=== PATIENT | female | born 1940 | race Caucasian/White ===

== ENCOUNTER 2025-04-22 | Outpatient (REF) | payer MEDICARE, SELFPAY ==
[2025-04-22 06:05] LABS: MANUAL DIFF FLAG NO
[2025-04-22 06:08] LABS: Hematocrit 28.3 % (37.0-47.0); Hemoglobin 8.9 g/dl (12.0-16.0); Imm Gran Abs Auto 0.03 X10*3/uL (0.00-0.03); Imm Gran Pct Auto 0.4 % (0.0-0.4); Lymphocytes Absolute Auto 1.2 X10*3/uL (1.2-4.9); Mean Corpuscular HGB Conc 31.4 g/dl (31.0-35.0); Mean Corpuscular Hemoglobin 30.5 pg (27.0-33.0); Mean Corpuscular Volume 96.9 fL (80.0-98.0); NRBC Abs Auto 0.000 X10*3/uL (0.0-0.012); NRBC Pct Auto 0.0 /100WBC (0.0-0.2); Platelet Count 389 X10*3/uL (160-400); Red Blood Count 2.92 X10*6/uL (4.20-5.50); White Blood Count 7.0 X10*3/uL (4.8-10.8)
[2025-04-22 06:26] LABS: Alanine Aminotransferase 19 U/L (0-31); Albumin Level 3.3 g/dL (3.5-5.0); Alkaline Phosphatase 80 U/L (39-117); Anion Gap 13 (12-20); Aspartate Amino Transferase 32 U/L (5-31); Blood Urea Nitrogen 24 mg/dL (9-16); Calcium 8.4 mg/dL (8.4-10.2); Carbon Dioxide 27 mmol/L (22-29); Chloride 107 mmol/L (96-108); Estimated Glomerular Filt Rate > 60; Potassium 4.2 mmol/L (3.3-5.1); Sodium 143 mmol/L (135-145); Total Protein 5.6 g/dL (6.5-8.0)
--- OUTSIDE RECORDS SUMMARY | 2025-05-01 14:31 | XMS_ITS | Encounter Summary ---
Author Organization [facility] Address [address] [place] [address] Care Team Providers Care Home Health Specialist Name Role Phone Lilliam Levy MD Primary Care Provider Reason for Visit * Reason Comments Leg Injury Right hip/distal fem ur * Auth/Cert (Routine) Specialty Diagnoses / Procedures Referred By Brenda jack Referred To Contact Diagnoses Periprosthetic fracture around prosthetic joint, initial encounter Procedures / Miguelangel Winn MD [address] [place] [phone] Phone: tel: fax: [facility] [address] [place] [address] Phone: tel: Referral ID Status Reason Start Date Expiration Date Visits Re quested Visits Authorized [id number] 1 1 Encounter Details Date Type Department Care Team (Late st Contact Info) Description 05/01/2025 2:31 PM EST - Present Hospital Encounter [facility] Unit [address] [place] [phone] Nik Vogt MD [address] [place] [address] Miguelangel Winn MD [address] [place] [phone] Kitty Castellanos MD [address] [place] [address] Mecca Barrios MD [address] [place] [address] Amanda Woods MD [address] [place] [address] Kobi Franklin MD [address] [place] [address] Other closed fracture of distal end of right femur, initial encounter ([facility] V24, [facility] V28) (Primary Dx); Hematoma Social History Tobacco Use Types Packs/Day Years Used Date Smoking Tobacco: Former Cigarettes 0.5 Q uit: 11/23/2020 Smokeless Tobacco: Never Alcohol Use Standard Drinks/Week Comments Yes 1 (1 standard drink = 0.6 oz pur e alcohol) once a week Housing Instability Answer Date Recorde d Are you worried that in the next 2 months you may not have stable housing? No 05/01/2025 Food Access & Nutrition Answer Date Rec orded Do you have access to a vari ety of food including fruits and vegetables? Yes 05/01/2025 Access to Healthcare Answer Date Record ed Within the last 3 months, lv raman many times did you visit the emergency department for your medical care? 1 04/09/2025 Health Literacy Answer Date Recorded How often do you need to hav e someone help you when you read instructions, pamphlets, or other written material from your doctor or pharmacy? Never 05/01/2025 Caregiver: How often do you need to have someone help you when you read instructions, pamphlets, or other written material from your doctor or pharmacy? Not on file 05/01/2025 Financial Risk Answer Date Recorded How hard is it for you to pa y for the very basics like food, housing, medical care, and air conditioning / heating? Not very hard 05/01/2025 Transportation Answer Date Recorded Has the lack of transportati on kept you from meetings, work, or from getting things needed for daily living? No Has the lack of transportati on kept you from medical appointments or from getting medications? No 05/01/2025 Social Isolation Answer Date Recorded How often do you feel lonely or isolated from th ose around you? Never 05/01/2025 Food Risk Answer Date Recorded Within the past 12 months we worried whether our food would run out before we got money to buy more. Never true 05/01/2025 Within the past 12 months th e food we bought just didn't last and we didn't have money to get more. Never true 05/01/2025 Dependent Care Answer Date Recorded Do you need help finding or paying for care for your loved ones. For example, child care associate teacher or elderly care for an older adult? No 05/01/2025 Education Answer Date Recorded Do you think completing more education or training, like finishing a GED, going to college, or learning a trade, would be helpful for you? No 05/01/2025 Employment and Income Answer Date Recor ded During the last four weeks, have you been actively looking for work? No 05/01/2025 Living Situation Answer Date Recorded What is your living situation? Unrecognized valu e 05/01/2025 Interpersonal Safety Answer Date Record ed Physical Abuse Unrecognized value 05/01/2025 Verbal Abuse Unrecognized value 05/01/2025 Comments No Sex and Gender Information Value Date Recorded Sex Assigned at Female 06/27/2024 10:57 AM EST Legal Sex Female 12:23 PM EST Gender Identity Female 06/27/2024 10:57 AM EST Sexual Orientation Straight 06/27/2024 10 :57 AM EST documented as of this encounter Last Filed Vital Signs Vital Sign Reading Time Taken Comments Blood Pressure 127/79 05/19/2025 7:41 AM EST Pulse 70 05/19/2025 7:41 AM EST Temperature 36.7 C (98.1 F) 05/19/2025 7:41 AM EST Respiratory Rate 14 05/19/2025 7:41 AM EST Oxygen Saturation 97% 05/19/2025 7:41 AM EST Inhaled Oxygen Concentration - - Weight 47.6 kg (105 lb) 05/04/2025 5:29 PM EST Height 165.1 cm (5' 5 ) 05/01/2025 2:38 PM EST Body Mass Index 17.47 05/01/2025 2:38 PM EST documented in this encounter Functional Status * Calculated C-SSRS Risk Score (Lifetime/Recent) Answer Date of Assessment Author No Risk Indicated 05/01/2025 2:38 PM EST Lyndsay Figueroa RN * [place] Suicide Severity Rating Scale (Screener/Recent Self-Report) Question Answer Date of Assessment Author 1. Wish to be (Past 1 Month) No 025 2:38 PM EST Lyndsay Figueroa RN 2. Non-Specific Active Suici victoria Thoughts (Past 1 Month) No 05/01/2025 2:38 PM EST April Figueroa RN 6. Suicidal Behavior (Lifetime) No 2:38 PM EST Lyndsay Figueroa RN documented as of this encounter Progress Notes * BURAK Miller - 05/19/2025 10:50 AM EST Orthopedic trauma surgery progress note for right hip infection. Subjective Surgery: Right distal femur nonexcisional irrigation and debridement of a 10 cm x 3 cm wound with VAC spongeapplication deep by Dr. Mojica on 05/13/25, 05/15/[address] Matos on 05/18/25. ORIF periprosthetic R distal femur by Dr. Baeza on 05/05/25. I&D right proximal draining wound by Dr. Mojica on 04/10/25, 04/13/25, 04/15/25 ORIF right proximal femoral fracture w/ cemented R LESLIE by Dr. Baeza on, 04/03/25. Isabella is being seen today in postoperative follow-up. Patient denies pain in right leg. Reports ambulating to the bathroom and with PT. Denies fevers, chills, headedness, dizziness, chest pain, shortness of breath, nausea, vomiting, abdominal pain, numbness, tingling. No overnight events noted. Voiding independently. Tolerating p.o. diet. No other complaints at this time. Review of Systems: ROS: 10 point ROS was reviewed with patient, pertinent positive and negative results are noted in the HPI. Objective Vitals: 05/19/25 0741 BP: 127/79 Pulse: 70 Resp: 14 Temp: 36.7 ??C (98.1 ??F) SpO2: 97% Physical Exam: GENERAL: Well-appearing, calm, cooperative, nontoxic appearing, thin, elderly female. In no acute distress. SKIN: Warm, dry. No rashes. HEENT: Normocephalic, atraumatic. CARDIAC: No peripheral edema. PULMONARY: No use of accessory muscles. : Deferred. MUSCULOSKELETAL: Right lower extremity: surgical dressing is clean, dry and intact. Hinged knee brace in place. Sensation intact to light touch over tibial, deep peroneal and superficial peroneal nerve distributions. Fires EHL, FHL, GS, TA. Toes warm well-perfused. NEURO: Awake, alert and oriented X 3. PSYCHIATRIC: Normal affect, fluid speech, good eye contact and appropriate demeanor. Scheduled Medications PRN Medications IV Medications atorvastatin, 20 mg, Nightly cholecalciferol, 50,000 Units, Weekly cholestyramine, 4 g, BID with meals dorzolamide, 1 drop, BID enoxaparin, 40 mg, Daily latanoprost, 1 drop, Nightly meropenem, 1 g, q8h metoprolol succinate, 25 mg, Daily PARoxetine, 20 mg, q AM polyetheylene glycol, 17 g, Nightly sodium chloride, 10 mL, BID acetaminophen, 650 mg, q6h PRN HYDROmorphone, 0.5 mg, q3h PRN naloxone, 0.04 mg, PRN ondansetron, 4 mg, q6h PRN oxyCODONE, 2.5 mg, q4h PRN oxyCODONE, 5 mg, q4h PRN sodium chloride, 10 mL, PRN sodium chloride, 42 mL/hr, PRN sodium chloride, 42 mL/hr, PRN sodium chloride, 42 mL/hr, PRN Labs: Hematology Lab Results Component Value Date WBC 8.3 05/18/2025 HGB 9.3 (L) 05/18/2025 HCT 30.0 (L) 05/18/2025 MCV 94.6 05/18/2025 PLT 441 (H) 05/18/2025 Chemistry Lab Results Component Value Date GLUCOSE 82 05/18/2025 NA 142 05/18/2025 K 4.5 05/18/2025 CO2 33 (H) 05/18/2025 CL 103 05/18/2025 BUN 34 (H) 05/18/2025 CREATININE 0.78 05/18/2025 EGFR 76 05/18/2025 CALCIUM 8.1 (L) 05/18/2025 MG 1.8 (L) 05/18/2025 PHOS 3.3 05/16/2025 ANIONGAP 6 05/18/2025 Assessment Periprosthetic fracture around prosthetic joint, initial encounter Plan Antibiotics: Continue IV abx as per ID, currently on IV meropenem OR C/S from 05/13 growing Enterobacter plus Citrobacter. Analgesia: Continue scheduled acetaminophen and prn po narcotics. Minimize narcotics. Activity: Continue PT/OT. WBAT on RLE. Hinged knee brace unlocked to allow for knee ROM. Dressing should be kept clean dry and intact. Reinforce prn. Wound vac in place maintaining adequate suction, output 100 ml. Anticoagulation: Lovenox or heparin while inpatient. Transition to Aspirin 81 mg po bid at discharge to complete 6 weeks postop. Additional: Anticipate return to the OR on Sunday for right distal femur wound VAC change by Dr. Mojica. Discussed and reviewed with Dr. Matos, orthopedic surgery attending. BURAK Miller Orthopedic Surgery 05/19/2025 10:51 AM EST * Herlinda Villagran, PT - 05/19/2025 10:40 AM EST [facility] Physical Therapy Treatment PT Discharge Recommendations: assisted facility placement Staff Recommendations for safe patient handling: min assist, locked hinge knee brace, rwalker Precautions Medical Precautions: Fall Risk, Limb restriction Safety Interventions: Call cabrera within reach, Bed alarm, Chair alarm, Side rails up x1 RUE Weight Bearing Status: Full LUE Weight Bearing Status: Full RLE Weight Bearing Status: As Tolerated LLE Weight Bearing Status: Full Orthopedic Precautions: (wbat with locked hinge knee brace on, limit excessive knee rom) Orthoses Applied: (hinged knee brace applied) Prosthesis/Orthosis Used: KAFO, Right History of Present Illness: Patient is a 84 y.o. female admitted to [facility] on 05/01/2025 with: Problem List[1] Modified Sanjana Scale: 4=Moderately severe disability. Unable to attend to own bodily needs without assistance or unable to walk unassisted. Fall prevention education provided including use of call light in hospital, use of appropriate assistive device, safe mobility techniques, and safety measures at home. Continue PT as per POC. Subjective I have another procedure Sunday Objective 05/19/25 1040 PT Last Visit PT Received On 05/19/25 General Family/Caregiver Present No PT Time Calculation PT Start Time 1040 PT Stop Time 1120 PT Time Calculation (min) 40 min Precautions Medical Precautions Fall Risk;Limb restriction Safety Interventions Call cabrera within reach;Bed alarm;Chair alarm;Side rails up x1 RUE Weight Bearing Status Full LUE Weight Bearing Status Full RLE Weight Bearing Status As Tolerated LLE Weight Bearing Status Full Orthopedic Precautions (wbat with locked hinge knee brace on, limit excessive knee rom) Pain Assessment Pain Assessment No/denies pain Cognition Overall Cognitive Status WFL Following Commands Follows all commands and directions without difficulty Activity Tolerance Endurance Tolerates 20 - 30 min activity with multiple rests Static Sitting Balance Static Sitting-Level of Assistance Supervision Static Sitting-Balance Support Right upper extremity supported;Left upper extremity supported Dynamic Sitting Balance Dynamic Sitting-Level of Assistance Supervision Dynamic Sitting-Balance Forward lean Dynamic Sitting-Balance Support Right upper extremity supported;Left upper extremity supported Static Standing Balance Static Standing-Level of Assistance Standby assistance Static Standing-Balance Support Right upper extremity supported;Left upper extremity supported Dynamic Standing Balance Dynamic Standing-Level of Assistance Standby assistance Dynamic Standing-Balance Ambulation Dynamic Standing-Balance Support Right upper extremity supported;Left upper extremity supported Bed Mobility Sitting to Lying Assistance Minimum assistance Lying to Sitting Assistance Standby assistance Transfers Sit to Stand Assistance Standby assistance Toilet Transfer Assistance Minimum assistance Toilet Transfer Technique Stand pivot;Stand to sit;Ambulating Ambulation Walking Assistance Standby assistance Device Rolling walker Pattern (locked hinge knee brace on r, therefore circumducts during swing; decreased stance time on r, slowcadence) Distance Ambulated (ft) 45 Procedures Procedures Therapeutic Activity Therapeutic Activity Therapeutic Activity Time Entry 40 Therapeutic Activity 1 in bed at outset of session, locked hinge knee brace on r, wound vac in place; moved supine to sitting over EOB with increased time, HOB up, and supervision. moved sit to standfrom EOB with no vc's needed for hand placement, but increased time and effort needed ; once standing walked in room to bathroom (10 ft), min assist to maneuver in tight space and to lower to sittingonto toilet. onces standing, ambulated out of room and into hallway using rwalker; vcs for upright trunk, steady gait with compensatory r hip circumduction d/t locked mick knee brace on r. Therapeutic Activity 2 She ambulated back to EOB, and lowered with sba. min assist needed to lift ble's and reposition upper body. Therapeutic Activity 3 sitting to supine performed with min assist to lift bles and place on bed, and to reposition upper body. Therapeutic Activity 4 reviewed ap's, hip abd/add while supine with brace on PT Assessment PT Assessment Results Decreased strength;Decreased range of motion;Decreased endurance;Impaired balance;Impaired gait;Decreased mobility;Decreased skin integrity;Orthopedic restrictions;Pain Prognosis Good Evaluation/Treatment Tolerance Patient limited by fatigue Medical Staff Made Aware Yes Plan Treatment/Interventions Functional transfer training;UE strengthening/ROM;LE strengthening/ROM;Endurance training;Patient/family training;Equipment eval/education;Bed mobility;Gait training;Compensatory technique education;Continued evaluation;Balance training;Stair training PT Plan Skilled PT PT Frequency 2-5 days per week PT Discharge Recommendations assisted facility placement Equipment Recommended Walker - rolling PT - Evaluation Status Complete PT - OK to Discharge (pt awaitng another procedure on 05/22/25) Procedure/Treatment: Procedures Procedures: Therapeutic Activity Gait Training Gait Training Time Entry: 24 Gait Training Activity 1: pt in bed at outset, moved supine-sitting unassisted, and sit to stand atrwalker [facility], vcs for hand placement; She ambulated to bathroom (10 ft) , wbat on r with brace on , sba, and performed toilet transfer with min assist to mange rwalker lower with control and lift off Gait Training Activity 2: She ambulated out of room and into hallway, vcs for more symmetrical steplength, upright trunk, sba x 60 ft. She sat down on sofa, mod assist for graded control sitting andfor liftoff. she stepped up/down 1 step with 2 hands on l rail, mod assist given for trunk support weight shfit, and lift up onto step . She stepped down backwards, and continued to walk down luna, with noted muscle fatigue, and decreased contralateral step length. pt got back into bed, min assist to lift RLE onto bed. Gait Training Activity 3: pt performed SPT to bed side chair, vcs to back up with rwalker, off loadrle, reach back and sit , with min assist for graded control of descent. Gait Training Activity 4: pt performed arom laq's, leg extended ap's x 10 reps to restore rom,strength and improve stength length, stabilty in gait Gait Training Activity 5: rle positioned extended on stool, sitting , reporting relief of pressure like pain in thigh during short sitting Therapeutic Exercise Therapeutic Exercise Time Entry: 15 Therapeutic Exercise Activity 1: supine: aps, hip abd/add, isometric qs, gs x 10 reps each Therapeutic Activity Therapeutic Activity Time Entry: 40 Therapeutic Activity 1: in bed at outset of session, locked hinge knee brace on r, wound vac in place; moved supine to sitting over EOB with increased time, HOB up, and supervision. moved sit to stand from EOB with no vc's needed for hand placement, but increased time and effort needed ; once standing walked in room to bathroom (10 ft), min assist to maneuver in tight space and to lower to sitting onto toilet. onces standing, ambulated out of room and into hallway using rwalker; vcs for uprighttrunk, steady gait with compensatory r hip circumduction d/t locked mick knee brace on r. Therapeutic Activity 2: She ambulated back to EOB, and lowered with sba. min assist needed to lift ble's and reposition upper body. Therapeutic Activity 3: sitting to supine performed with min assist to lift bles and place on bed, and to reposition upper body. Therapeutic Activity 4: reviewed ap's, hip abd/add while supine with brace on Patient left lying supine in bed. RN notified of pt. status, location, response to treatment, and therapy recommendations. Physical Therapy Assessment/Plan PT Assessment PT Assessment Results: Decreased strength, Decreased range of motion, Decreased endurance, Impairedbalance, Impaired gait, Decreased mobility, Decreased skin integrity, Orthopedic restrictions, Pain Prognosis: Good Evaluation/Treatment Tolerance: Patient limited by fatigue Medical Staff Made Aware: Yes Plan Treatment/Interventions: Functional transfer training, UE strengthening/ROM, LE strengthening/ROM, Endurance training, Patient/family training, Equipment eval/education, Bed mobility, Gait training, Compensatory technique education, Continued evaluation, Balance training, Stair training PT Plan: Skilled PT PT Frequency: 2-5 days per week PT Duration of Sessions: 15-30 min per session PT Treatments per day: 1 time per day PT Discharge Recommendations: assisted facility placement Equipment Recommended: Walker - rolling PT - Evaluation Status: Complete PT - OK to Discharge: (pt awaitng another procedure on 05/22/25) Physical Therapy Goals/Education Encounter Problems Encounter Problems (Active) Template: Physical Therapy Problem: PT Short Term Goals Dates: Start: 05/06/25 Goal: Patient will ambulate with rwalker, hingeknee brace, wbat, stand by assist (Resolved) Dates: Start: 05/06/25 Expected End: 05/12/25 Resolved: 05/07/25 Outcomes Date/Time User Outcome 05/07/25 1652 Kamilla Bermudez, PT Completed Goal: Patient will ambulate with rwalker, hinge knee brace, wbat, x 50 ft, stand by assist Dates: Start: 05/06/25 Expected End: 05/13/25 Outcomes Date/Time User Outcome 05/15/25 1728 Herlinda Villagran, PT Progressing Goal: Patient will be able to safely negotiate 5 stairs with 1 rail, min assist Dates: Start: 05/06/25 Expected End: 05/13/25 Outcomes Date/Time User Outcome 05/15/25 1728 Herlinda Villagran, PT Not Progressing Encounter Problems (Resolved) There are no resolved problems. Education Documentation Precautions, taught by Herlinda Villagran PT at 05/19/2025 11:38 AM. Learner: Patient Readiness: Acceptance Method: Explanation Response: Verbalizes Understanding Comment: educated in POC and dc recommendations ADL Training, taught by Herlinda Villagran PT at 05/19/2025 11:38 AM. Learner: Patient Readiness: Acceptance Method: Explanation Response: Verbalizes Understanding Comment: educated in POC and dc recommendations Home Exercise Program, taught by Herlinda Villagran PT at 05/19/2025 11:38 AM. Learner: Patient Readiness: Acceptance Method: Explanation Response: Verbalizes Understanding Comment: educated in POC and dc recommendations Mobility Training, taught by Herlinda Villagran PT at 05/19/2025 11:38 AM. Learner: Patient Readiness: Acceptance Method: Explanation Response: Verbalizes Understanding Comment: educated in POC and dc recommendations Education Comments No comments found. Herlinda Villagran PT ++++++++++++ [1] Patient Active Problem List Diagnosis Atrial fibrillation ([facility] V24, [facility] V28) CHF (congestive heart failure) ([facility] V24, [facility] V28) Collagenous colitis Depression HTN (hypertension) Mitral valve regurgitation Takotsubo cardiomyopathy C. 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 S/P right hip fracture Closed displaced subtrochanteric fracture of right femur ([facility] V24, [facility] V28) Bleeding from right hip wound Atrial fibrillation with rapid ventricular response ([facility] V24, [facility] V28) Moderate malnutrition ([facility] V24) Periprosthetic fracture around prosthetic joint, initial encounter Other closed fracture of distal end of right femur, initial encounter ([facility] V24, [facility] V28) 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 Stability of the patient: Moderately Stable - Low risk of patient condition declining or worsening End of Shift Summary: A&O, VSS, pain managed w/ prn medication. Ambulating to bathroom w/o issues. Dressing CDI, immobilizer and wound vac in place. Call cabrera within reach safety precautions in place. * Anne Spear OT - 05/18/2025 3:23 PM EST Therapy session was attempted for Isabella Díaz by Anne Spear OT on 05/18/2025. The patient was unable to be seen for the following reason(s): Other: Pt taken back to OR for repeat I&D Plan for return visit: Tomorrow * Kobi Franklin MD - 05/18/2025 2:18 PM EST Images from the original note were not included. IMAN PROGRESS NOTE Date: 05/18/2025 Author: Kobi Franklin MD Patient ID: Isabella Díaz is a 84 y.o. female : 1940 MR#: [id number] SUBJECTIVE Subjective Patient seen and examined bedside this morning. No significant overnight events. N.p.o. for procedure today Objective Allergy- Patient has no known allergies. OBJECTIVE Vitals: 05/17/25 1954 05/18/25 0340 05/18/25 0759 05/18/25 1410 BP: 110/71 131/87 123/72 BP Location: Right arm Right arm Patient Position: Lying Lying Pulse: 88 80 80 Resp: 16 16 20 Temp: 36.6 ??C (97.9 ??F) 36.4 ??C (97.5 ??F) 37 ??C (98.6 ??F) 36.1 ??C (97 ??F) TempSrc: Oral SpO2: 94% 95% 98% Weight: Height: Temp (24hrs), Av.6 ??C (97.9 ??F), Min:36.1 ??C (97 ??F), Max:37 ??C (98.6 ??F) Physical Exam General-patient appears comfortable, no acute distress HEENT-NCAT Eyes-anicteric Cardiology-no significant murmur appreciated Respiratory-no significant wheezing appreciated abdomen-nontender nondistended Extremity-no significant lower extremity edema noted, wound VAC with dressing in place over right lower extremity Neurology-awake alert oriented to time place and person Skin-warm and dry Lab Results: CBC BMP Results from last 7 days Lab Units 05/18/25 0621 05/17/25 0856 05/16/25 0631 05/15/25 0551 05/14/25 0707 05/13/25 0601 05/12/25 0545 WBC AUTO K/mcL 8.3 9.5 12.1* 8.8 < > 9.8 8.1 HEMOGLOBIN g/dL 9.3* 9.7* 9.0* 9.1* < > 10.2* 9.9* HEMATOCRIT % 30.0* 32.2* 29.4* 29.4* < > 32.9* 31.4* PLATELETS K/mcL 441* 469* 461* 454* < > 463* 407* LYMPHS PCT AUTO % -- 13.1 -- 16.3 -- 16.2 14.2 MONO PCT AUTO % -- 8.6 -- 13.6 -- 12.7 13.5 EOS PCT AUTO % -- 2.2 -- 3.3 -- 3.8 4.1 < > = values in this interval not displayed. Results from last 7 days Lab Units 05/18/25 0605/16/25 0631 05/15/25 0551 05/14/25 0707 SODIUM mmol/L 142 143 143 139 POTASSIUM mmol/L 4.5 4.5 4.7 4.2 CHLORIDE mmol/L 103 104 104 100 CO2 mmol/L 33* 31 33* 31 ANION GAP 6 8 6 8 BUN mg/dL 34* 47* 35* 25 CREATININE mg/dL 0.78 0.69 0.87 0.71 CALCIUM mg/dL 8.1* 8.0* 7.9* 8.3* MAGNESIUM mg/dL 1.8* 1.7* -- -- PHOSPHORUS mg/dL -- 3.3 -- -- Results from last 7 days Lab Units 05/18/25 0605/16/25 0631 05/15/25 0551 05/14/25 0707 05/13/25 0601 GLUCOSE mg/dL 82 97 79 93 84 No lab exists for component: TBIL , BILID Scheduled Medications PRN Medications IV Medications acetaminophen, 650 mg, Once [Transfer Hold] atorvastatin, 20 mg, Nightly [Transfer Hold] cholecalciferol, 50,000 Units, Weekly [Transfer Hold] cholestyramine, 4 g, BID with meals [Transfer Hold] dorzolamide, 1 drop, BID [START ON 05/19/2025] enoxaparin, 40 mg, Daily [Transfer Hold] latanoprost, 1 drop, Nightly meropenem, 1 g, q8h [Transfer Hold] metoprolol succinate, 25 mg, Daily [Transfer Hold] PARoxetine, 20 mg, q AM [Transfer Hold] polyetheylene glycol, 17 g, Nightly [Transfer Hold] sodium chloride, 10 mL, BID [Transfer Hold] acetaminophen, 650 mg, q6h PRN [Transfer Hold] HYDROmorphone, 0.5 mg, q3h PRN HYDROmorphone, 0.5 mg, q5 min PRN [Transfer Hold] naloxone, 0.04 mg, PRN [Transfer Hold] ondansetron, 4 mg, q6h PRN ondansetron (ZOFRAN-ODT) disintegrating tablet, 4 mg, q8h PRN Or ondansetron, 4 mg, q8h PRN [Transfer Hold] oxyCODONE, 2.5 mg, q4h PRN [Transfer Hold] oxyCODONE, 5 mg, q4h PRN oxyCODONE, 5 mg, q4h PRN [Transfer Hold] sodium chloride, 10 mL, PRN [Transfer Hold] sodium chloride, 42 mL/hr, PRN [Transfer Hold] sodium chloride, 42 mL/hr, PRN [Transfer Hold] sodium chloride, 42 mL/hr, PRN lactated Ringer's ASSESSMENT & PLAN Assessment/Plan Principal Problem: Periprosthetic fracture around prosthetic joint, initial encounter Active Problems: Other closed fracture of distal end of right femur, initial encounter ([facility] V24, [facility] V28) Hematoma of left thigh No problem-specific Assessment & Plan notes found for this encounter. 84-year-old female with PMH of A-fib on Eliquis, HTN, COPD, CHF/Takotsubo cardiomyopathy among others who presented with right leg pain. Patient recently suffered right hip femur fracture and was treated with total hip replacement. Postoperatively she had seroma/hematoma which required I&D which was not infected. Subsequently she was at the rehab but while undergoing PT developed severe pain and was found to have periprosthetic fracture of the right femur in the area of distal screw hole ofthe plate. Therefore patient was brought to the hospital and orthopedic surgical team was consulted. History of right femoral fracture status post ORIF Nonhealing wound Concern for osteomyelitis with hardware - status post removal of previous hardware with ORIF of right distal femur with intramedullary and lateral locked plating - Patient taken to the OR on 05/13 and 05/15 for I&D and wound VAC. -Wound culture from 05/13 growing Enterobacter, Citrobacter. ID consulted; antibiotics changed to meropenem - Plan for repeat OR on 05/18. Acute blood loss anemia postop with underlying chronic anemia status post 3 units of blood transfusions. Monitor H&H Chronic A-fib with secondary hypercoagulable state Eliquis on hold at this time. Patient on Lovenox. Per Ortho her Eliquis should be held until the wound completely settles. 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 Discharge barrier-pending clinical improvement pending ID All labs, imaging, relevant history personally reviewed by me. Please be aware that the above note was completed using voice recognition software. If you have anyquestions please contact the author of this note for clarification. * Koki Rasmussen MD - 05/18/2025 2:06 PM EST Isabella Díaz is here for { Leg Injury (Right hip/distal femur) Subjective Feels well, denies complaints, tolerating Abx Review of Systems Review of Systems Constitutional: Negative. HENT: Negative. Respiratory: Negative. Cardiovascular: Negative. Gastrointestinal: Negative. Genitourinary: Negative. Musculoskeletal: Negative. Skin: Positive for wound. Neurological: Negative. Physical Examination: Vitals: Visit Vitals BP 123/72 (BP Location: Right arm, Patient Position: Lying) Pulse 80 Temp 37 ??C (98.6 ??F) Resp 20 Physical Exam Vitals reviewed. Constitutional: Appearance: Normal appearance. HENT: Head: Normocephalic and atraumatic. Eyes: General: No scleral icterus. Cardiovascular: Rate and Rhythm: Normal rate and regular rhythm. Heart sounds: No murmur heard. No friction rub. No gallop. Pulmonary: Effort: No respiratory distress. Breath sounds: No stridor. No wheezing or rhonchi. Abdominal: General: There is no distension. Tenderness: There is no abdominal tenderness. There is no guarding or rebound. Musculoskeletal: General: No deformity or signs of injury. Skin: Coloration: Skin is not jaundiced or pale. Neurological: Mental Status: She is alert. Objective Recent Lab Results: Lab Results Component Value Date WBC 8.3 05/18/2025 RBC 3.20 (L) 05/18/2025 HGB 9.3 (L) 05/18/2025 HCT 30.0 (L) 05/18/2025 MCV 94.6 05/18/2025 MCHC 31.0 (L) 05/18/2025 RDW 16.9 (H) 05/18/2025 PLT 441 (H) 05/18/2025 MPV 8.8 05/18/2025 NRBC 0.0 05/18/2025 DIFF Lab Results Component Value Date LYMPHOPCT 13.1 05/17/2025 NEUTROABS 7.08 (H) 05/17/2025 LYMPHSABS 1.24 05/17/2025 MONOABS 0.82 05/17/2025 EOSABS 0.21 05/17/2025 BASOSABS 0.07 05/17/2025 IMMGRANABS 0.07 (H) 05/17/2025 RETIC No results found for: RETIC , RETICCTPCT Lab Results Component Value Date URINECX 05/15/2025 <10,000 cfu/ml, insignificant count, no further workup. Recent Results (from the past week) Culture wound deep Collection Time: 05/13/25 10:22 AM Specimen: Thigh, Right; Swab Result Value Ref Range Culture, Wound Enterobacter cloacae complex (A) Culture, Wound Citrobacter sedlakii (A) Gram Stain Result Few Polymorphonuclear leukocytes Gram Stain Result No epithelial cells seen Gram Stain Result No organisms seen Susceptibility Citrobacter sedlakii - SAUL Amoxicillin/Clavulanate Resistant ug/ml Cefoxitin Resistant ug/ml Ceftazidime Susceptible ug/ml Ceftriaxone Susceptible ug/ml Cefepime Susceptible ug/ml Meropenem Susceptible ug/ml Amikacin Susceptible ug/ml Gentamicin Susceptible ug/ml Ciprofloxacin Susceptible ug/ml Levofloxacin Susceptible ug/ml Trimethoprim/Sulfamethoxazole Susceptible ug/ml Enterobacter cloacae complex - SAUL Amoxicillin/Clavulanate Resistant ug/ml Cefoxitin Resistant ug/ml Ceftazidime Susceptible ug/ml Cefepime Susceptible ug/ml Meropenem Susceptible ug/ml Amikacin Susceptible ug/ml Gentamicin Susceptible ug/ml Ciprofloxacin Susceptible ug/ml Levofloxacin Susceptible ug/ml Trimethoprim/Sulfamethoxazole Susceptible ug/ml Culture wound deep Collection Time: 05/13/25 10:24 AM Specimen: Hip, Right; Swab Result Value Ref Range Culture, Wound Enterobacter cloacae complex (A) Gram Stain Result Few Polymorphonuclear leukocytes Gram Stain Result No epithelial cells seen Gram Stain Result No organisms seen Susceptibility Enterobacter cloacae complex - SAUL Amoxicillin/Clavulanate Resistant ug/ml Cefoxitin Resistant ug/ml Ceftazidime Susceptible ug/ml Cefepime Susceptible ug/ml Meropenem Susceptible ug/ml Amikacin Susceptible ug/ml Gentamicin Susceptible ug/ml Ciprofloxacin Susceptible ug/ml Levofloxacin Susceptible ug/ml Trimethoprim/Sulfamethoxazole Susceptible ug/ml Culture wound deep Collection Time: 05/13/25 10:25 AM Specimen: Hip, Right; Swab Result Value Ref Range Culture, Wound Enterobacter cloacae complex (A) Culture, Wound Citrobacter sedlakii (A) Gram Stain Result Few Polymorphonuclear leukocytes Gram Stain Result No epithelial cells seen Gram Stain Result No organisms seen Susceptibility Citrobacter sedlakii - SAUL Amoxicillin/Clavulanate Resistant ug/ml Cefoxitin Resistant ug/ml Ceftazidime Susceptible ug/ml Ceftriaxone Susceptible ug/ml Cefepime Susceptible ug/ml Meropenem Susceptible ug/ml Amikacin Susceptible ug/ml Gentamicin Susceptible ug/ml Ciprofloxacin Susceptible ug/ml Levofloxacin Susceptible ug/ml Trimethoprim/Sulfamethoxazole Susceptible ug/ml Enterobacter cloacae complex - SAUL Amoxicillin/Clavulanate Resistant ug/ml Cefoxitin Resistant ug/ml Ceftazidime Susceptible ug/ml Cefepime Susceptible ug/ml Meropenem Susceptible ug/ml Amikacin Susceptible ug/ml Gentamicin Susceptible ug/ml Ciprofloxacin Susceptible ug/ml Levofloxacin Susceptible ug/ml Trimethoprim/Sulfamethoxazole Susceptible ug/ml Culture urine Collection Time: 05/15/25 4:37 PM Specimen: Urine, Clean Catch Result Value Ref Range Culture, Urine <10,000 cfu/ml, insignificant count, no further workup. Recent Imaging Findings: XR Femur 1 View Right Result Date: 05/13/2025 Narrative: History: Postop right femur fracture repair. Comparison: 05/01/25 (preop). Findings: Portable AP views of the right femur from 11:40 AM are submitted from the PACU. The patient has undergone interim open reduction and internal fixation of a distal femoral diaphyseal fracture which occurred just distal to the most inferior surgical screw of a pre-existing long metal sideplate. There are 2 new metal side plates along the distal femur now, one on the lateral side extending from the mid diaphysis to the distal metaphysis and a second, shorter plate extending from the distal diaphysis tothe distal metaphysis, traversing the fracture. The major fracture fragments are in anatomic alignment. 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 Lateral skin carmel are noted. Impression: Impression: New postop changes in the distal femur, with 2 additional sideplates placed, traversing the acute distal femoral diaphyseal fracture. Alignment of the major fracture fragmentsis anatomic. [facility] ([id number]) -------- FINAL REPORT -------- Dictated By: Carmen Prado Dictated Date: 05/13/2025 16:08 ET Assigned Physician: Carmen Prado Reviewed and Electronically Signed By: Carmen Prado Signed Date: 05/13/2025 16:13 ET Workstation ID: [id number] Transcribed By: Self Edit Transcribed Date: 05/13/2025 16:08 ET XR Hip 1 View Right Result Date: 05/13/2025 Narrative: XR HIP 1 VIEW RIGHT INDICATION: Post-op evaluation following repair in pacu TECHNIQUE: XR HIP 1 VIEW RIGHT COMPARISON: None Impression: FINDINGS/IMPRESSION: Immediate postoperative radiograph with expected recent postsurgical changes in the adjacent soft tissues. See operative report for further details. Right hip arthroplasty with plate and screw fixation of the proximal femur remote pubic rami fractures and significant degenerative changes of the lumbar spine. -------- FINAL REPORT -------- Dictated By: Henry Forrester Dictated Date: 05/13/2025 13:18 ET Assigned Physician: Henry Forrester Reviewed and Electronically Signed By: Henry Forrester Signed Date: 05/13/2025 13:19 ET Workstation ID: [id number] Transcribed By: Self Edit Transcribed Date: 05/13/2025 13:18 ET XR Femur 2+ Views Right Result Date: 05/06/2025 Narrative: HISTORY: The patient is an 84-year-old female with a fracture of the distal right femur.FINDINGS: 8 fluoroscopic spot radiographs of the right femur obtained in the operating room are submitted. The study documents placement of an internal fixation plate and screws transfixing the fracture of the distal femur initially seen on preoperative radiographs performed 05/01/2025. The surgicalhardware appears well-positioned and intact. Near-anatomic alignment has been restored to the fracture site. 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 Impression: Satisfactory appearance following internal fusion of a fracture of the distal right femur. Pre-existing surgical hardware is also again noted. The dose-area product for this procedure [id number] mGy*cm2. PQRI CPT II G9500 -------- FINAL REPORT -------- Dictated By: Casimiro Ryan Dictated Date: 05/06/2025 07:45 ET Assigned Physician: Casimiro Ryan Reviewed and Electronically Signed By: Casimiro Ryan Signed Date: 05/06/2025 07:48 ET Workstation ID: [id number] Transcribed By: Self Edit Transcribed Date: 05/06/2025 07:45 ET XR Femur 2+ Views Right Result Date: 05/02/2025 Narrative: XR FEMUR 2+ VIEWS RIGHT INDICATION: ground fall, r/o fracture TECHNIQUE: XR FEMUR 2+ VIEWS RIGHT COMPARISON: None Impression: FINDINGS/IMPRESSION: Displaced distal femur fracture. -------- FINAL REPORT -------- Dictated By: Henry Forrester Dictated Date: 05/02/2025 10:26 ET Assigned Physician: Henry Forrester Reviewed and Electronically Signed By: Henry Forrester Signed Date: 05/02/2025 10:26 ET Workstation ID: [id number] Transcribed By: Self Edit Transcribed Date: 05/02/2025 10:26 ET XR Knee 1-2 Views Right Result Date: 05/01/2025 Narrative: XR KNEE 1-2 VIEWS RIGHT INDICATION: fall, pain, deformity, concern for distal femur fx TECHNIQUE: XR KNEE 1-2 VIEWS RIGHT COMPARISON: None Impression: FINDINGS/IMPRESSION: There is a angulated and mildly displaced distal femur fracture. Degenerative changes of the knee. -------- FINAL REPORT -------- Dictated By: Henry Forrester Dictated Date: 05/01/2025 16:39 ET Assigned Physician: Henry Forrester Reviewed and Electronically Signed By: Henry Forrester Signed Date: 05/01/2025 16:39 ET Workstation ID: [id number] Transcribed By: Self Edit Transcribed Date: 05/01/2025 16:39 ET XR Hip 2-3 Views Right Result Date: 05/01/2025 Narrative: XR HIP 2-3 VIEWS RIGHT INDICATION: pain TECHNIQUE: XR HIP 2-3 VIEWS RIGHT COMPARISON: None Impression: FINDINGS/IMPRESSION: Recent postsurgical changes of the right femur unchanged from prior examination and in anatomic alignment. Chronic pelvic fracture deformities. Degenerative changes of the spine. -------- FINAL REPORT -------- Dictated By: Henry Forrester Dictated Date: 05/01/2025 16:37ET Assigned Physician: Henry Forrester Reviewed and Electronically Signed By: Henry Forrester Signed Date: 05/01/2025 16:38 ET Workstation ID: [id number] Transcribed By: Self Edit Transcribed Date: 05/01/2025 16:37 ET XR Femur 2+ Views Right Result Date: 04/23/2025 Narrative: This order has been auto-finalized and does not contain a result. Assessment/Plan: Isabella Díaz is a 84 y.o. female who has a past medical history of Atrial fibrillation ([facility] V28) (01/17/2021), CHF (congestive heart failure) ([facility] V24, [facility] V28) (01/17/2021), Clostridium difficile diarrhea (03/26/2024), Depression (01/17/2021), Hypertension, NSTEMI (non-ST elevated myocardial infarction) ([facility] V24, [facility] V28) (01/17/2021), NSTEMI (non-ST elevatedmyocardial infarction) ([facility] V24, [facility] V28) (01/17/2021), Pubic ramus fracture ([facility] V24, [facility] V28) (11/30/2021), and Takotsubo cardiomyopathy (01/17/2021).. The patient was admitted to the hospital on 05/01/2025 for non healing wound of hr right leg. She has suffered multiple falls in the past and had femur fx and had ORIF and an arthoplasty done on 04/03. Unfortunately, the wound didnot heal and she developed drainage and was taken to the OR for washout multiple time son 04/10 and04/13 and 04/15. She was discharged on 04/20. She was getting PT on 05/01 and then noted something pop and so came to the ER. Here, it was found that the wound was worsening. She was taken o the OR for washout on 05/13 and again today. Spoke with Ortho, they do feel there is hardware involvement butit cannot be removed due to her fractures. OR C/S from 05/13 growing Enterobacter plus Citrobacter.The ID service has been consulted for management during this patient's hospital stay. Osteomyelitis associated with hardware The pt has wound dehiscence with involvement of hardware from fracture C/S finalised on Citrobacter and Enterobacter Will complete 6 weeks of IV Vy till 06/26, followed by Bactrim suppression D/w Ortho Recommendations: Continue Vy, I have increased Vy to 1 g Q8, if going home then can switch to ertapenem 1 g Q24 for ease of administration, however if going to SNF then can continue Meropenem 1 g Q8, EOT 06/26, please check weekly CBC, BMP and fax to my office at [phone], then on 06/27 please start the pt on PO Bactrim DS 1 tab daily for suppression, minimum 1 year Appreciate Ortho input Isolation: none ID to sign off I personally spent 40 minutes in this encounter. This included performing a detailed chart review, reviewing and independently interpreting labs ordered by other providers, performing a history and physical,, counseling this patient/family, discussing the case with the primary team and Ortho, coordi nating his/her/their plan of care and performing complex medical decision making. The pt has a highly complex and life threatneing infection for which I am the primary specialist involved in managingantimicrobials * Temitope Hernandez RN - 05/18/2025 2:03 PM EST JEFF: 05/20 Barrier: OR again today for repeat I&D, IV antibiotics, ID following Plan: Ammon Daley * Herlinda Villagran PT - 05/18/2025 12:51 PM EST Physical Therapy Therapy session was attempted for Isabella Díaz by Herlinda Villagran PT on 05/18/2025. The patient was unable to be seen for the following reason(s): Out of room at a medical procedure Plan for return visit: As soon as possible * Rut You RD - 05/18/2025 11:17 AM EST 05/18/2025 @ 11:17 AM EST Nutrition Follow Up Note Reason for RD Intervention: Assessment Type: Follow-up Reason for Assessment: High MST Score Anthropometrics: Height: 165.1 cm (65 ) Weight: 47.6 kg (105 lb) Weight Method: Stated Frame Size: Small BMI (Calculated): 17.5 BMI Class: Underweight IBW (lbs): 125 UBW (lbs): 120 Recent Weight Change: Yes (ongoing weight loss, time frame unclear) Current Diet and Supplements: Dietary Orders (From admission, onward) Start Ordered 05/18/25 0838 Adult NPO diet Location: [facility]; Diet: NPO- Except for Medications Diet effective now Question Answer Comment Location [facility] Diet NPO- Except for Medications 05/18/25 0837 05/07/25 1035 Dietary nutrition supplements Two times daily (BID); [facility]; Standard Oral Supplement Continuous Comments: Chocolate, breakfast and dinner Question Answer Comment Frequency Two times daily (BID) Location [facility] Supplements Standard Oral Supplement 05/07/25 1035 History of presenting illness: Patient is a 84 y.o. female with a history of Medical History[1] Surgical History[2] admitted 05/01/2025 with Periprosthetic fracture around prosthetic joint, initial encounter. Food/Nutrition History: Previous Diet / Nutrition Education / Counseling: Pt report she eats what she wants at home, deniesfood allergies, denies food insecurities. Pt states she gets Meals on Wheels, prepares other meals for herself. Pt reports weight loss over time, not intentional, but gradual. Appetite DATA ANALYTICS DEVELOPER: Good Intake DATA ANALYTICS DEVELOPER: Stable Vitamins/Minerals/Herbs: Pt reports she takes a multivitamin at home Weight History: Wt Readings from Last 10 Encounters: 05/04/25 47.6 kg (105 lb) 04/09/25 (!) 40.8 kg (90 lb) 04/01/25 (!) 40.8 kg (90 lb) 03/13/25 (!) 40.8 kg (90 lb) 03/06/25 (!) 41.9 kg (92 lb 6.4 oz) 02/11/25 (!) 41.9 kg (92 lb 6.4 oz) 11/24/24 (!) 41.1 kg (90 lb 9.6 oz) 09/16/24 (!) 41.9 kg (92 lb 6.4 oz) 09/04/24 (!) 41.1 kg (90 lb 9.6 oz) 08/24/24 49.9 kg (110 lb) Subjective Assessment: Pt seen for follow up, NPO today, plan to return to OR today. Limited po intakes recorded, however pt reports good appetite, pleased with meals selections. Reports she is doing well with Ensure plus high protein twice daily, will continue as ordered. Pt understanding of protein needs for wound healing. Nutrition-Related Lab Values: Results from last 7 days Lab Units 05/18/25 0621 05/17/25 0856 05/16/25 0631 SODIUM mmol/L 142 -- 143 POTASSIUM mmol/L 4.5 -- 4.5 PHOSPHORUS mg/dL -- -- 3.3 MAGNESIUM mg/dL 1.8* -- 1.7* CHLORIDE mmol/L 103 -- 104 CO2 mmol/L 33* -- 31 BUN mg/dL 34* -- 47* CREATININE mg/dL 0.78 -- 0.69 EGFR mL/min/1.73m2 76 -- 87 CALCIUM mg/dL 8.1* -- 8.0* GLUCOSE mg/dL 82 -- 97 WBC AUTO K/mcL 8.3 < > 12.1* < > = values in this interval not displayed. No results found for: LIPASE Medications: MEDSSCHEDULED[3] CONTINUOUS: MEDSCONTINUOUS[4] MEDSPRN[5] Energy Needs: kcal, gm protein, mL fluid per day. Total Energy Estimated Needs: Based on stated weight 46 k - 1840 (35 - 40kcal/kg), 46 - 55g protein/day (1 - 1.2g/kg), 1ml/kcal fluid Height: 165.1 cm (65 ) Temp: 37 ??C (98.6 ??F) Food/Nutrition-Current Status: Intake Type: Other (Comment) (NPO) Current Diet Status: Appropriate (NPO for OR today) Current Supplement Status: Appropriate Appetite: Good Intake Amount (%): 75-100% (limited % meal intake recorded, pt reports good intake) Intake Assessment: Adequate Main IVF: None Main IVF Rate (mL/hr): 100 Nutrition Focused Physical Findings: Overall Appearance: Patiet sitting up in bed, moderate to severe muscle and fat depletion. Nerves and Cognition: Alert, Oriented Skin: wound incision to right thigh, pressure wound to coccyx, not staged, noted to be healed per Epic documentation Loss of Fat Location: Orbital, Buccal, Triceps Loss of Fat Amt-Orbital: Severe Loss of Fat Amt-Buccal: Moderate Loss of Fat Amt-Triceps: Severe Loss of Muscle Location: Temples, Clavicle, Shoulders, Interosseous Loss of Muscle Amt-Temples: Moderate Loss of Muscle Amt-Clavicle: Severe Loss of Muscle Amt-Shoulders: Moderate Loss of Muscle Amt-Inter Musc: Severe Nutrition Diagnosis: Code Type: Severe-Chronic (E43) Severe-Chronic Criteria: Severe Body Fat Depletion, Severe Muscle Mass Depletion Status: Other (Comment) (Ongoing) Diagnosis: Malnutrition Etiology: Physiologic causes Symptoms: Pt with moderate and severe muscle and fat losses to multilple regions per nutrition focused physical exam, ongoing weight loss per pt. Nutrition Interventions: Diet Order, Medical Food Supplement Monitor weights, labs lytes - mag 1.8 today Medical Food Supplement(s): Ensure Plus (ensure plus high protein) Continue supplement as ordered Diet Order: Regular Diet Collaboration and Referral of Nutrition Care: Collaborate with Other Providers Nutrition Education Education not provided at this time. Follow for need. Goals: Patient will consume greater than or equal to 75% meals., Patient will consume ONS., Electrolytes within normal range., Maintain weight., Stooling appropriately., Maintain skin integrity., and Wound healing progress. Coordination of Patient Care: Care plan discussed with patient/family. Monitoring/Evaluation: Fluid/Beverage Intake, Food Intake, Medical Food Supp/Oral Nutrition Supp, Weight, Diet Order, Renal/Electrolyte Profile Follow Up: Nutrition Priority Level: Moderate RD remains available and will continue to follow. Signature: Rut You RD [1] Past Medical History: Diagnosis Date Atrial fibrillation ([facility], [facility]) 01/17/2021 DX:Atrial fibrillation ([facility]) CHF (congestive heart failure) ([facility], [facility]) 01/17/2021 DX:CHF (congestive heart failure) ([facility]) Clostridium difficile diarrhea 03/26/2024 DX:Clostridium difficile diarrhea Depression 01/17/2021 DX:Depression Hypertension NSTEMI (non-ST elevated myocardial infarction) ([facility], [facility]) 01/17/2021 DX:NSTEMI (non-ST elevated myocardial infarction) ([facility]); COMMENT: 12/2020 Dr Eller, holter monitor and cardiac cath as outpt. NSTEMI (non-ST elevated myocardial infarction) ([facility] [place], [facility] V28) 01/17/202112/2020 Dr Eller, holter monitor and cardiac cath as outpt. Pubic ramus [place] [place] [facility] 11/30/2021 DX:Pubic ramus fracture ([facility]) Takotsubo cardiomyopathy 01/17/2021 DX:Takotsubo cardiomyopathy [2] Past Surgical History: Procedure Laterality Date JOINT REPLACEMENT OTHER SURGICAL HISTORY PROCEDURE: HISTORICAL MITRAL VALVE REPL OTHER SURGICAL HISTORY PROCEDURE: HISTORY OTHER; COMMENT: right humerus fracture TONSILLECTOMY PROCEDURE: HISTORICAL TONSILLECTOMY [3] atorvastatin, 20 mg, oral, Nightly cholecalciferol, 50,000 Units, oral, Weekly cholestyramine, 4 g, oral, BID with meals dorzolamide, 1 drop, Both Eyes, BID [Held by provider] enoxaparin, 40 mg, subcutaneous, Daily latanoprost, 1 drop, Both Eyes, Nightly meropenem, 1 g, intravenous, q12h metoprolol succinate, 25 mg, oral, Daily PARoxetine, 20 mg, oral, q AM polyetheylene glycol, 17 g, oral, Nightly sodium chloride, 10 mL, intravenous, BID [4] [5] PRN medications: acetaminophen, HYDROmorphone, naloxone, ondansetron, oxyCODONE, oxyCODONE, Insert peripheral IV AND Maintain IV access AND Saline lock IV AND sodium chloride AND sodium chloride, sodium chloride, sodium chloride, sodium chloride * Willian Mak RN - 05/18/2025 4:57 AM EST Goals: Identify possible barriers to meeting goals/advancing plan of care: . Stability of the patient: Moderately Stable - Low risk of patient condition declining or worsening End of Shift Summary: A&O, VSS, pain managed with prn medication. Ambulating to bathroom w/o issue. Dressing CDI, immobilizer and wound vac in place. Call cabrera within reach safety precautions in place. * Kobi Franklin MD - 05/17/2025 1:19 PM EST Images from the original note were not included. [facility] PROGRESS NOTE Date: 05/17/2025 Author: Kobi Franklin MD Patient ID: Isabella Díaz is a 84 y.o. female : 1940 MR#: [id number] SUBJECTIVE Subjective Patient seen and examined bedside this morning. Sitting comfortably on the chair. Denies any pain. Objective Allergy- Patient has no known allergies. OBJECTIVE Vitals: 05/16/25 1457 05/16/25201405/17/25 0317 05/17/25 0819 BP: 111/77 121/80 132/78 113/69 BP Location: Left arm Left arm Patient Position: Lying Sitting Pulse: 104 97 75 83 Resp: 16 16 16 16 Temp: 36.7 ??C (98.1 ??F) 36.9 ??C (98.4 ??F) 36.4 ??C (97.5 ??F) 36.7 ??C (98.1 ??F) TempSrc: Oral Oral Oral SpO2: 98% 95% 98% 97% Weight: Height: Temp (24hrs), Av.7 ??C (98 ??F), Min:36.4 ??C (97.5 ??F), Max:36.9 ??C (98.4 ??F) Physical Exam General-patient appears comfortable, no acute distress HEENT-NCAT Eyes-anicteric Cardiology-no significant murmur appreciated Respiratory-no significant wheezing appreciated abdomen-nontender nondistended Extremity-no significant lower extremity edema noted, wound VAC with dressing in place over right lower extremity Neurology-awake alert oriented to time place and person Skin-warm and dry Lab Results: CBC BMP Results from last 7 days Lab Units 05/17/25 0856 05/16/25 0631 05/15/25 0551 05/14/25 0707 05/13/25 0601 05/12/25 0545 WBC AUTO K/mcL 9.5 12.1* 8.8 12.0* 9.8 8.1 HEMOGLOBIN g/dL 9.7* 9.0* 9.1* 9.9* 10.2* 9.9* HEMATOCRIT % 32.2* 29.4* 29.4* 31.9* 32.9* 31.4* PLATELETS K/mcL 469* 461* 454* 470* 463* 407* LYMPHS PCT AUTO % 13.1 -- 16.3 -- 16.2 14.2 MONO PCT AUTO % 8.6 -- 13.6 -- 12.7 13.5 EOS PCT AUTO % 2.2 -- 3.3 -- 3.8 4.1 Results from last 7 days Lab Units 05/16/25 0631 05/15/25 0551 05/14/25 0707 05/13/25 0601 SODIUM mmol/L 143 143 139 143 POTASSIUM mmol/L 4.5 4.7 4.2 4.6 CHLORIDE mmol/L 104 104 100 102 CO2 mmol/L 31 33* 31 32 ANION GAP 8 6 8 9 BUN mg/dL 47* 35* 25 27* CREATININE mg/dL 0.69 0.87 0.71 0.74 CALCIUM mg/dL 8.0* 7.9* 8.3* 8.4* MAGNESIUM mg/dL 1.7* -- -- -- PHOSPHORUS mg/dL 3.3 -- -- -- Results from last 7 days Lab Units 05/16/25 0631 05/15/25 0551 05/14/25 0707 05/13/25 0601 05/12/25 0545 GLUCOSE mg/dL 97 79 93 84 88 No lab exists for component: TBIL , BILID Scheduled Medications PRN Medications IV Medications atorvastatin, 20 mg, Nightly cholecalciferol, 50,000 Units, Weekly cholestyramine, 4 g, BID with meals dorzolamide, 1 drop, BID enoxaparin, 40 mg, Daily latanoprost, 1 drop, Nightly meropenem, 1 g, q12h metoprolol succinate, 25 mg, Daily PARoxetine, 20 mg, q AM polyetheylene glycol, 17 g, Nightly sodium chloride, 10 mL, BID acetaminophen, 650 mg, q6h PRN HYDROmorphone, 0.5 mg, q3h PRN naloxone, 0.04 mg, PRN ondansetron, 4 mg, q6h PRN oxyCODONE, 2.5 mg, q4h PRN oxyCODONE, 5 mg, q4h PRN sodium chloride, 10 mL, PRN sodium chloride, 42 mL/hr, PRN sodium chloride, 42 mL/hr, PRN sodium chloride, 42 mL/hr, PRN ASSESSMENT & PLAN Assessment/Plan Principal Problem: Periprosthetic fracture around prosthetic joint, initial encounter Active Problems: Other closed fracture of distal end of right femur, initial encounter ([facility] V24, [facility] V28) Hematoma of left thigh No problem-specific Assessment & Plan notes found for this encounter. 84-year-old female with PMH of A-fib on Eliquis, HTN, COPD, CHF/Takotsubo cardiomyopathy among others who presented with right leg pain. Patient recently suffered right hip femur fracture and was treated with total hip replacement. Postoperatively she had seroma/hematoma which required I&D which was not infected. Subsequently she was at the rehab but while undergoing PT developed severe pain and was found to have periprosthetic fracture of the right femur in the area of distal screw hole ofthe plate. Therefore patient was brought to the hospital and orthopedic surgical team was consulted. History of right femoral fracture status post ORIF Nonhealing wound Concern for osteomyelitis with hardware - status post removal of previous hardware with ORIF of right distal femur with intramedullary and lateral locked plating - Patient taken to the OR on 05/13 and 05/15 for I&D and wound VAC. -Wound culture from 05/13 growing Enterobacter, Citrobacter. ID consulted; antibiotics changed to meropenem - Plan for repeat OR on 05/18. Acute blood loss anemia postop with underlying chronic anemia status post 3 units of blood transfusions. Monitor H&H Chronic A-fib with secondary hypercoagulable state Eliquis on hold at this time. Patient on Lovenox. Per Ortho her Eliquis should be held until the wound completely settles. 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 Discharge barrier-pending clinical improvement pending ID tomorrow All labs, imaging, relevant history personally reviewed by me. Please be aware that the above note was completed using voice recognition software. If you have anyquestions please contact the author of this note for clarification. * Mariana Carter RN - 05/17/2025 9:10 AM EST Plan is to return to [facility]: OR 05/18, wound vac, clinical improvement, ID plan finalization * Gris Mojica MD - 05/17/2025 8:41 AM EST Procedure: Right distal femur nonexcisional irrigation and debridement of a 10 cm x 3 cm wound with VAC spongeapplication deep Date of surgery: 01/10/2025, 05/15/2025. I evaluated the patient this morning. She is in good spirits. There is approximately 300 cc of serosanguineous fluid in the VAC canister. As such the amount of volume is decreasing. Labs, specifically CBC, from this morning is pending. Ok to continue prophylactic Lovenox. The patient is in good spirits and ambulates with minimal to no discomfort. Clinically she is doing well. Appreciate infectious disease input. Will need final infectious disease plan and the patient will likely need to be on chronic suppression in order to allow this fracture to heal. Please make n.p.o. after midnight tonight in anticipation of surgery tomorrow, follow up CBC from today. * Willian Mak RN - 05/17/2025 6:49 AM EST Goals: Identify possible barriers to meeting goals/advancing plan of care: . Stability of the patient: Moderately Stable - Low risk of patient condition declining or worsening End of Shift Summary: A&O, VSS, pain managed with prn medication. Call cabrera within reach safetyprecautions in place. * Kobi Franklin MD - 05/16/2025 1:01 PM EST Images from the original note were not included. IMAN PROGRESS NOTE Date: 05/16/2025 Author: Kobi Franklin MD Patient ID: Isabella Díaz is a 84 y.o. female : 1940 MR#: [id number] SUBJECTIVE Subjective Patient seen and examined bedside this morning. Offers no complaints reports no events overnight. Pain is very much under control. Objective Allergy- Patient has no known allergies. OBJECTIVE Vitals: 05/15/25 2036 05/15/25 2352 05/16/25 0405 05/16/25 0744 BP: 108/69 102/70 128/82 124/66 BP Location: Left arm Left arm Left arm Left arm Patient Position: Lying Pulse: 102 83 73 79 Resp: 16 16 16 16 Temp: 37 ??C (98.6 ??F) 36.6 ??C (97.9 ??F) 36.8 ??C (98.2 ??F) 36.6 ??C (97.9 ??F) TempSrc: Oral Oral Oral Oral SpO2: 95% 95% 98% 97% Weight: Height: Temp (24hrs), Av.7 ??C (98 ??F), Min:36.4 ??C (97.6 ??F), Max:37 ??C (98.6 ??F) Physical Exam General-patient appears comfortable, no acute distress HEENT-NCAT Eyes-anicteric Cardiology-no significant murmur appreciated Respiratory-no significant wheezing appreciated abdomen-nontender nondistended Extremity-no significant lower extremity edema noted, wound VAC with dressing in place over right lower extremity Neurology-awake alert oriented to time place and person Skin-warm and dry Lab Results: CBC BMP Results from last 7 days Lab Units 05/16/25 0631 05/15/25 0551 05/14/25 0707 05/13/25 0601 05/12/25 0545 05/11/25 0616 WBC AUTO K/mcL 12.1* 8.8 12.0* 9.8 8.1 7.8 HEMOGLOBIN g/dL 9.0* 9.1* 9.9* 10.2* 9.9* 9.7* HEMATOCRIT % 29.4* 29.4* 31.9* 32.9* 31.4* 30.6* PLATELETS K/mcL 461* 454* 470* 463* 407* 366 LYMPHS PCT AUTO % -- 16.3 -- 16.2 14.2 14.1 MONO PCT AUTO % -- 13.6 -- 12.7 13.5 15.5 EOS PCT AUTO % -- 3.3 -- 3.8 4.1 3.8 Results from last 7 days Lab Units 05/16/25 0631 05/15/25 0551 05/14/25 0707 05/13/25 0601 SODIUM mmol/L 143 143 139 143 POTASSIUM mmol/L 4.5 4.7 4.2 4.6 CHLORIDE mmol/L 104 104 100 102 CO2 mmol/L 31 33* 31 32 ANION GAP 8 6 8 9 BUN mg/dL 47* 35* 25 27* CREATININE mg/dL 0.69 0.87 0.71 0.74 CALCIUM mg/dL 8.0* 7.9* 8.3* 8.4* MAGNESIUM mg/dL 1.7* -- -- -- PHOSPHORUS mg/dL 3.3 -- -- -- Results from last 7 days Lab Units 05/16/25 0631 05/15/25 0551 05/14/25 0707 05/13/25 0601 05/12/25 0545 GLUCOSE mg/dL 97 79 93 84 88 No lab exists for component: TBIL , BILID Scheduled Medications PRN Medications IV Medications atorvastatin, 20 mg, Nightly cholecalciferol, 50,000 Units, Weekly cholestyramine, 4 g, BID with meals dorzolamide, 1 drop, BID enoxaparin, 40 mg, Daily latanoprost, 1 drop, Nightly meropenem, 1 g, q12h metoprolol succinate, 25 mg, Daily PARoxetine, 20 mg, q AM polyetheylene glycol, 17 g, Nightly sodium chloride, 10 mL, BID acetaminophen, 650 mg, q6h PRN HYDROmorphone, 0.5 mg, q3h PRN naloxone, 0.04 mg, PRN ondansetron, 4 mg, q6h PRN oxyCODONE, 2.5 mg, q4h PRN oxyCODONE, 5 mg, q4h PRN sodium chloride, 10 mL, PRN sodium chloride, 42 mL/hr, PRN sodium chloride, 42 mL/hr, PRN sodium chloride, 42 mL/hr, PRN ASSESSMENT & PLAN Assessment/Plan Principal Problem: Periprosthetic fracture around prosthetic joint, initial encounter Active Problems: Other closed fracture of distal end of right femur, initial encounter ([facility] V24, [facility] V28) Hematoma of left thigh No problem-specific Assessment & Plan notes found for this encounter. 84-year-old female with PMH of A-fib on Eliquis, HTN, COPD, CHF/Takotsubo cardiomyopathy among others who presented with right leg pain. Patient recently suffered right hip femur fracture and was treated with total hip replacement. Postoperatively she had seroma/hematoma which required I&D which was not infected. Subsequently she was at the rehab but while undergoing PT developed severe pain and was found to have periprosthetic fracture of the right femur in the area of distal screw hole ofthe plate. Therefore patient was brought to the hospital and orthopedic surgical team was consulted. History of right femoral fracture status post ORIF Nonhealing wound Concern for osteomyelitis with hardware - status post removal of previous hardware with ORIF of right distal femur with intramedullary and lateral locked plating - Patient taken to the OR on 05/13 and 05/15 for I&D and wound VAC. -Wound culture from 05/13 growing Enterobacter, Citrobacter. ID consulted; antibiotics changed to meropenem - Plan for repeat OR on 05/18. Acute blood loss anemia postop with underlying chronic anemia status post 3 units of blood transfusions. Monitor H&H Chronic A-fib with secondary hypercoagulable state Eliquis on hold at this time. Patient on Lovenox. Per Ortho her Eliquis should be held until the wound completely settles. 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 Discharge barrier-pending clinical improvement All labs, imaging, relevant history personally reviewed by me. Please be aware that the above note was completed using voice recognition software. If you have anyquestions please contact the author of this note for clarification. * Gris Mojica MD - 05/16/2025 9:10 AM EST Procedure: Right distal femur nonexcisional irrigation and debridement of a 10 cm x 3 cm wound with VAC spongeapplication deep Date of surgery: 01/10/2025, 05/15/2025. I saw and evaluated the patient this morning. The amount of drainage in her VAC sponge is much lessthan it was after the first washout. She has approximately 800's cc of serosanguineous fluid in theVAC canister at this point. She is up and about walking with no complaints of pain. She is doing remarkably well. Her white count has gone from 12-8 and up to 12 again today but she just had surgery yesterday so hopefully this is just reactive. Infectious disease has her on meropenem 1 g Q8. Her BMP is within normal limits this morning. We really appreciate infectious disease input. This patient will need chronic suppression until she heals. She complains of no pain this morning she is in good spirits she is active. We just need this wound to desiccate in order to allow it to heal and plan for discharge. Will plan for surgery again on Sunday for repeat washout and hopefully closure. The patient should be n.p.o. Sunday night in anticipation of I&D on Sunday. Appreciate infectious disease input. * Willian Mak RN - 05/16/2025 6:00 AM EST Goals: Identify possible barriers to meeting goals/advancing plan of care: . Stability of the patient: Moderately Stable - Low risk of patient condition declining or worsening End of Shift Summary: A&O, VSS, pain managed with prn medication. Ambulating to bathroom w/o issue. Dressing CDI, wound vac and immobilizer in place. Resting in bed safety precautions in place. * Cely Piña RN - 05/15/2025 6:30 PM EST Problem: Sensory: Acute Pain Goal: Pain level will improve or be tolerable Outcome: Progressing Goal: Ability to develop a pain control plan will improve Outcome: Progressing Problem: Cognitive: [place] Risk Goal: Mobility requiring assistance of person or device Outcome: Progressing Problem: Physical Regulation: Periop Procedure - Major Goal: Postoperative complications will be avoided or minimized Outcome: Progressing Goal: Ability to maintain clinical measurements within normal limits will improve Outcome: Progressing Problem: Activity: Physical Mobility Impairment Goal: Ability to ambulate will improve Outcome: Progressing Goal: Range of joint motion will be supported Outcome: Progressing Problem: Skin Integrity: Skin Integrity Impairment Goal: Skin integrity will improve Outcome: Progressing Problem: Cognitive: Skin Integrity Impairment Goal: Knowledge of the prescribed therapeutic regimen will improve Outcome: Progressing Problem: Nutritional: Skin Integrity Impairment Goal: Dietary intake will improve Outcome: Progressing Problem: Self-Care: Skin Integrity Impairment Goal: Compliance with treatment plan for underlying cause of condition will improve Outcome: Progressing Problem: Patient Specific Problem: Skin Integrity Impairment Goal: Patient Specific Outcome Outcome: Progressing Problem: Skin Integrity: Pressure Injury Actual or Risk of Goal: Will not develop new pressure injury Outcome: Progressing Goal: Skin integrity will improve Outcome: Progressing Goal: Risk for impaired skin integrity will decrease Outcome: Progressing Problem: Activity:Pressure Injury Actual or Risk of Goal: Mobility will improve Outcome: Progressing Problem: Nutritional:Pressure Injury Actual or Risk of Goal: Nutritional status will improve Outcome: Progressing Problem: Patient Specific Problem: Pressure Injury Actual or Risk of Goal: Patient Specific Outcome Outcome: Progressing Problem: Skin Integrity: Pressure Injury Actual or Risk of Goal: Will not develop new pressure injury Outcome: Progressing Goal: Skin integrity will improve Outcome: Progressing Goal: Risk for impaired skin integrity will decrease Outcome: Progressing Problem: Activity:Pressure Injury Actual or Risk of Goal: Mobility will improve Outcome: Progressing Problem: Nutritional:Pressure Injury Actual or Risk of Goal: Nutritional status will improve Outcome: Progressing Problem: Patient Specific Problem: Pressure Injury Actual or Risk of Goal: Patient Specific Outcome Outcome: Progressing Problem: Fluid Volume: Bleeding Risk Goal: Will show no signs and symptoms of excessive bleeding Outcome: Progressing Problem: Cognitive: Bleeding Risk Goal: Ability to state signs and symptoms to report to health care provider will improve Outcome: Progressing Goals: Identify possible barriers to meeting goals/advancing plan of care: Stability of the patient: Moderately Stable - Low risk of patient condition declining or worsening End of Shift Summary: Pt with rep I&D, wound vac change today, VSS, resting comfortably. * Herlinda Villagran PT - 05/15/2025 4:00 PM EST [facility] Physical Therapy Treatment PT Discharge Recommendations: assisted facility placement Staff Recommendations for safe patient handling: min assist, rwalker, Precautions Medical Precautions: Fall Risk, Limb restriction (wbat on right with locked KAFO) Safety Interventions: Call cabrera within reach, ID band on, Chair alarm RUE Weight Bearing Status: Full LUE Weight Bearing Status: Full (locked hinged knee brace, avoid excessive ROM) RLE Weight Bearing Status: As Tolerated LLE Weight Bearing Status: Full Orthopedic Precautions: (avoid excess ROM) Orthoses Applied: (hinged knee brace applied) Prosthesis/Orthosis Used: KAFO, Right History of Present Illness: Patient is a 84 y.o. female admitted to [facility] on 05/01/2025 with: Problem List[1] Modified Sanjana Scale: 4=Moderately severe disability. Unable to attend to own bodily needs without assistance or unable to walk unassisted. Fall prevention education provided including use of call light in hospital, use of appropriate assistive device, safe mobility techniques, and safety measures at home. Continue PT as per POC. Subjective I guess I'm going to be here for a while longer Objective 05/15/25 1600 PT Last Visit PT Received On 05/15/25 General Family/Caregiver Present No PT Time Calculation PT Start Time 1600 PT Stop Time 1630 PT Time Calculation (min) 30 min Precautions Medical Precautions Fall Risk;Limb restriction (wbat on right with locked KAFO) Safety Interventions Call cabrera within reach;ID band on;Chair alarm RUE Weight Bearing Status Full LUE Weight Bearing Status Full (locked hinged knee brace, avoid excessive ROM) RLE Weight Bearing Status As Tolerated LLE Weight Bearing Status Full Orthopedic Precautions (avoid excess ROM) Orthoses Applied (hinged knee brace applied) Prosthesis/Orthosis Used KAFO;Right Vital Signs BP 124/82 MAP (Calculated) 96 mm Hg Oxygen Therapy Oxygen Therapy None (Room air) O2 Delivery Method Simple mask Pain Assessment Pain Assessment No/denies pain Pain Frequency Intermittent Cognition Overall Cognitive Status WFL Activity Tolerance Endurance Tolerates 20 - 30 min activity with multiple rests Static Sitting Balance Static Sitting-Level of Assistance Supervision Dynamic Sitting Balance Dynamic Sitting-Level of Assistance Close supervision Dynamic Sitting-Balance Support Right upper extremity supported;Left upper extremity supported Dynamic Standing Balance Dynamic Standing-Level of Assistance Contact guard Dynamic Standing-Balance Ambulation Dynamic Standing-Balance Support Right upper extremity supported;Left upper extremity supported Bed Mobility Rolling Right Assistance Standby assistance Sitting to Lying Assistance Minimum assistance Lying to Sitting Assistance Minimum assistance Transfers Sit to Stand Assistance Contact guard Chair/Bed to Chair/Bed Transfer Assistance Contact guard Toilet Transfer Assistance Moderate assistance Toilet Transfer Technique Stand pivot;Stand to sit Ambulation Walking Assistance Contact guard Device Rolling walker Pattern R Decreased stance time;R Circumduction Distance Ambulated (ft) 10 Comments with locked hinge knee brace, assist with wound vac Procedures Procedures Therapeutic Activity Therapeutic Activity Therapeutic Activity Time Entry 30 Therapeutic Activity 1 pt s/p I&D r , with wound vac in place, wbat, with locked hinge brace, wbat; pt in bed supine at outset, min assist needed to move rle to EOB; pt sat over EOB, and moved upto standing at rwalker, min assist-cga; She ambulated with rwalker and locked hinge knee brace x 10ft to br, and navigated in tight space with rwalker, cga; toilet transfer required mod assist to slowly lower to seat andd vcs for r foot placement; she needed mod assist to stand back up for lift off and steadying , then was able to ambulate x 10 ft back to bed, min assist to lift rle onto bed andassist to manage wound vac. rle elevated with 1 pillow, positioned for comfort. PT Assessment PT Assessment Results Decreased strength;Decreased range of motion;Decreased endurance;Impaired balance;Impaired gait;Decreased mobility;Decreased skin integrity;Orthopedic restrictions;Pain Prognosis Good Evaluation/Treatment Tolerance Patient limited by fatigue Medical Staff Made Aware Yes Plan Treatment/Interventions Functional transfer training;LE strengthening/ROM;Endurance training;Patient/family training;Equipment eval/education;Bed mobility;Gait training;Compensatory technique educatio n;Continued evaluation;Balance training PT Plan Skilled PT PT Frequency 2-5 days per week PT Discharge Recommendations assisted facility placement Equipment Recommended Walker - rolling PT - Evaluation Status Complete Procedure/Treatment: Procedures Procedures: Therapeutic Activity Therapeutic Activity Therapeutic Activity Time Entry: 30 Therapeutic Activity 1: pt s/p I&D r , with wound vac in place, wbat, with locked hinge brace, wbat; pt in bed supine at outset, min assist needed to move rle to EOB; pt sat over EOB, and moved up to standing at rwalker, min assist- cga; She ambulated with rwalker and locked hinge knee brace x 10 ft to br, and navigated in tight space with rwalker, cga; toilet transfer required mod assist to slowly lower to seat andd vcs for r foot placement; she needed mod assist to stand back up for lift off and steadying , then was able to ambulate x 10 ft back to bed, min assist to lift rle onto bed and assist to manage wound vac. rle elevated with 1 pillow, positioned for comfort. Patient left lying supine in bed. RN notified of pt. status, location, response to treatment, and therapy recommendations. Physical Therapy Assessment/Plan PT Assessment PT Assessment Results: Decreased strength, Decreased range of motion, Decreased endurance, Impairedbalance, Impaired gait, Decreased mobility, Decreased skin integrity, Orthopedic restrictions, Pain Prognosis: Good Evaluation/Treatment Tolerance: Patient limited by fatigue Medical Staff Made Aware: Yes Plan Treatment/Interventions: Functional transfer training, LE strengthening/ROM, Endurance training, Patient/family training, Equipment eval/education, Bed mobility, Gait training, Compensatory techniqueeducation, Continued evaluation, Balance training PT Plan: Skilled PT PT Frequency: 2-5 days per week PT Duration of Sessions: 15-30 min per session PT Treatments per day: 1 time per day PT Discharge Recommendations: assisted facility placement Equipment Recommended: Walker - rolling PT - Evaluation Status: Complete Physical Therapy Goals/Education Encounter Problems Encounter Problems (Active) Template: Physical Therapy Problem: PT Short Term Goals Dates: Start: 05/06/25 Goal: Patient will ambulate with rwalker, hingeknee brace, wbat, stand by assist (Resolved) Dates: Start: 05/06/25 Expected End: 05/12/25 Resolved: 05/07/25 Outcomes Date/Time User Outcome 05/07/25 1652 Kamilla Bermudez PT Completed Goal: Patient will ambulate with rwalker, hinge knee brace, wbat, x 50 ft, stand by assist Dates: Start: 05/06/25 Expected End: 05/13/25 Outcomes Date/Time User Outcome 05/12/25 1130 Herlinda Villagran PT Progressing Goal: Patient will be able to safely negotiate 5 stairs with 1 rail, min assist Dates: Start: 05/06/25 Expected End: 05/13/25 Outcomes Date/Time User Outcome 05/12/25 1130 Herlinda Villagran PT Progressing Encounter Problems (Resolved) There are no resolved problems. Education Documentation Explain information regarding therapeutic regimen, taught by Herlinda Villagran PT at 05/15/2025 5:25 PM. Learner: Patient Readiness: Acceptance Method: Explanation Response: Verbalizes Understanding Comment: educated in POC Teach information regarding safety precautions, taught by Herlinda Villagran PT at 05/15/2025 5:25 PM. Learner: Patient Readiness: Acceptance Method: Explanation Response: Verbalizes Understanding Comment: educated in POC Teach proper use of assistive devices, taught by Herlinda Villagran PT at 05/15/2025 5:25 PM. Learner: Patient Readiness: Acceptance Method: Explanation Response: Verbalizes Understanding Comment: educated in POC Education Comments No comments found. Herlinda Villagran PT [1] Patient Active Problem List Diagnosis Atrial fibrillation (CMS/HCC V24, CMS/HCC V28) CHF (congestive heart failure) (CMS/HCC V24, CMS/HCC V28) Collagenous colitis Depression HTN (hypertension) Mitral valve regurgitation Takotsubo cardiomyopathy C. 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 S/P right hip fracture Closed displaced subtrochanteric fracture of right femur (CMS/HCC V24, CMS/HCC V28) Bleeding from right hip wound Atrial fibrillation with rapid ventricular response (CMS/HCC V24, CMS/HCC V28) Moderate malnutrition ([facility] V24) Periprosthetic fracture around prosthetic joint, initial encounter Other closed fracture of distal end of right femur, initial encounter ([facility]/HCC V24, CMS/HCC V28) Sharron-prosthetic fracture of femur at tip of prosthesis Hematoma of left thigh * Herlinda Villagran PT - 05/15/2025 3:19 PM EST Physical Therapy Therapy session was attempted for Isabella Díaz by Herlinda Villagran PT on 05/15/2025. The patient was unable to be seen for the following reason(s): Refused treatment-reports she just came from PACU and is starving Plan for return visit: Later today for additional attempt * Kobi Franklin MD - 05/15/2025 2:09 PM EST Images from the original note were not included. IMAN PROGRESS NOTE Date: 05/15/2025 Author: Kobi Franklin MD Patient ID: Isabella Díaz is a 84 y.o. female : 1940 MR#: [id number] SUBJECTIVE Subjective Seen and examined. Some pain at surgical site Objective Allergy- Patient has no known allergies. OBJECTIVE Vitals: 05/15/25 1300 05/15/25 1315 05/15/25 1322 05/15/25 1325 BP: 128/82 128/71 121/75 119/75 BP Location: Patient Position: Pulse: 89 87 86 93 Resp: 17 16 18 19 Temp: TempSrc: SpO2: 97% 98% Weight: Height: Temp (24hrs), Av.7 ??C (98.1 ??F), Min:36.4 ??C (97.5 ??F), Max:36.9 ??C (98.5 ??F) Physical Exam General-patient appears comfortable, no acute distress HEENT-NCAT Eyes-anicteric Cardiology-no significant murmur appreciated Respiratory-no significant wheezing appreciated abdomen-nontender nondistended Extremity-right lateral thigh dressing with wound VAC in place Neurology-awake alert oriented to time place and person Skin-warm and dry Lab Results: CBC BMP Results from last 7 days Lab Units 05/15/25 0551 05/14/25 0707 05/13/25 0601 05/12/25 0545 05/11/25 0616 WBC AUTO K/mcL 8.8 12.0* 9.8 8.1 7.8 HEMOGLOBIN g/dL 9.1* 9.9* 10.2* 9.9* 9.7* HEMATOCRIT % 29.4* 31.9* 32.9* 31.4* 30.6* PLATELETS K/mcL 454* 470* 463* 407* 366 LYMPHS PCT AUTO % 16.3 -- 16.2 14.2 14.1 MONO PCT AUTO % 13.6 -- 12.7 13.5 15.5 EOS PCT AUTO % 3.3 -- 3.8 4.1 3.8 Results from last 7 days Lab Units 05/15/25 0551 05/14/25 0707 05/13/25 0601 05/12/25 0545 SODIUM mmol/L 143 139 143 142 POTASSIUM mmol/L 4.7 4.2 4.6 4.5 CHLORIDE mmol/L 104 100 102 103 CO2 mmol/L 33* 31 32 33* ANION GAP 6 8 9 6 BUN mg/dL 35* 25 27* 24 CREATININE mg/dL 0.87 0.71 0.74 0.62 CALCIUM mg/dL 7.9* 8.3* 8.4* 8.8 Results from last 7 days Lab Units 05/15/25 0551 05/14/25 0707 05/13/25 0601 05/12/25 0545 05/10/25 0601 GLUCOSE mg/dL 79 93 84 88 96 No lab exists for component: TBIL , BILID Scheduled Medications PRN Medications IV Medications atorvastatin, 20 mg, Nightly cholecalciferol, 50,000 Units, Weekly cholestyramine, 4 g, BID with meals dorzolamide, 1 drop, BID [START ON 05/16/2025] enoxaparin, 40 mg, Daily latanoprost, 1 drop, Nightly meropenem, 1 g, q12h metoprolol succinate, 25 mg, Daily PARoxetine, 20 mg, q AM polyetheylene glycol, 17 g, Nightly sodium chloride, 10 mL, BID acetaminophen, 650 mg, q6h PRN fentaNYL (PF), 50 mcg, q5 min PRN HYDROmorphone, 0.5 mg, q3h PRN HYDROmorphone, 0.5 mg, q5 min PRN naloxone, 0.04 mg, PRN ondansetron, 4 mg, q6h PRN oxyCODONE, 2.5 mg, q4h PRN oxyCODONE, 5 mg, q4h PRN oxyCODONE, 5 mg, Once PRN sodium chloride, 10 mL, PRN sodium chloride, 42 mL/hr, PRN sodium chloride, 42 mL/hr, PRN sodium chloride, 42 mL/hr, PRN lactated Ringer's, Last Rate: 125 mL/hr (05/15/25 1149) ASSESSMENT & PLAN Assessment/Plan Principal Problem: Periprosthetic fracture around prosthetic joint, initial encounter Active Problems: Other closed fracture of distal end of right femur, initial encounter (CMS/[facility] V24, CMS/[facility] V28) Hematoma of left thigh No problem-specific Assessment & Plan notes found for this encounter. 84-year-old female with PMH of A-fib on Eliquis, HTN, COPD, CHF/Takotsubo cardiomyopathy among others who presented with right leg pain. Patient recently suffered right hip femur fracture and was treated with total hip replacement. Postoperatively she had seroma/hematoma which required I&D which was not infected. Subsequently she was at the rehab but while undergoing PT developed severe pain and was found to have periprosthetic fracture of the right femur in the area of distal screw hole ofthe plate. Therefore patient was brought to the hospital and orthopedic surgical team was consulted. History of right femoral fracture status post ORIF Nonhealing wound Concern for osteomyelitis with hardware - status post removal of previous hardware with ORIF of right distal femur with intramedullary and lateral locked plating - Patient taken to the OR on 05/13 and 05/15 for I&D and wound VAC. -Wound culture from 05/13 growing Enterobacter, Citrobacter. ID consulted; antibiotics changed to meropenem - Plan for repeat OR on 05/18. Acute blood loss anemia postop with underlying chronic anemia status post 3 units of blood transfusions. Monitor H&H Chronic A-fib with secondary hypercoagulable state Eliquis on hold at this time. Patient on Lovenox. Per Ortho her Eliquis should be held until the wound completely settles. 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 Discharge barrier-pending clinical improvement All labs, imaging, relevant history personally reviewed by me. Please be aware that the above note was completed using voice recognition software. If you have anyquestions please contact the author of this note for clarification. * Arabella Valerio RN - 05/15/2025 2:00 PM EST CM Progress Note JEFF: Pending clinical improvement Barrier: POD #2 s/p I&D with wound vac placement, OR 05/15 for repeat I&D, will need additional I&D, Ortho following Plan: return to [facility] * Herlinda Villagran PT - 05/15/2025 10:20 AM EST Physical Therapy Therapy session was attempted for Isabella Díaz by Herlinda Villagran PT on 05/15/2025. The patient was unable to be seen for the following reason(s): Out of room at a medical procedure I&D RLE Plan for return visit: as soon as possible * Charlotte Briscoe RN - 05/14/2025 6:57 PM EST Goals: Identify possible barriers to meeting goals/advancing plan of care: Wound Vac, Return to OR, IV abx Stability of the patient: Moderately Unstable - Medium risk of patient condition declining or worsening End of Shift Summary: Plan for OR tomorrow with ortho team; patient ambulating in room with assistance and walker. Pain well managed with current regimen. * Anne Spear OT - 05/14/2025 5:00 PM EST [facility] Occupational Therapy Treatment Note DATE: April TIME IN: 1445 TIME OUT: 1515 Pt: Isabella Díaz [id number] DISCHARGE RECS: Inpatient rehab facility placement EQUIPMENT RECS: (TBD) SAFE PT HANDLING REC FOR STAFF: Min assist PRECAUTIONS: Precautions Medical Precautions: Fall Risk, Limb restriction Safety Interventions: Call cabrera within reach, ID band on, Chair alarm RUE Weight Bearing Status: Full LUE Weight Bearing Status: Full RLE Weight Bearing Status: As Tolerated LLE Weight Bearing Status: Full Orthopedic Precautions: (avoid excess ROM) Orthoses Applied: (hinged knee brace applied) ASSESSMENT: Pt participated in skilled OT session today. Patient engaged in LB dressing task for donning hospital pants. Patient is now requiring supervision only to perform bed mobility for supine/sit. Patient verbalized understanding of education provided and responded appropriately to cues. Patient would continue to benefit from skilled acute care OT to continue to progress with ADLs. Subjective I guess I'm going back to the OR tomorrow for another procedure. Objective 05/14/25 1445 OT Last Visit OT Received On 05/14/25 General Family/Caregiver Present No OT Time Calculation OT Start Time 1445 OT Stop Time 1515 OT Time Calculation (min) 30 min Precautions RUE Weight Bearing Status Full LUE Weight Bearing Status Full RLE Weight Bearing Status As Tolerated LLE Weight Bearing Status Full Orthopedic Precautions (avoid excess ROM) Orthoses Applied (hinged knee brace applied) Vital Signs Patient Identification Yes Oxygen Therapy Oxygen Therapy None (Room air) Pain Assessment Pain Assessment No/denies pain Pain Score 0 - No pain ADLs/IADLs Self Care/Home Management (ADLs) Time Entry 30 ADL/ IADL Performed Oral Hygiene;Dressing Oral Hygiene Oral Hygiene Level of Assistance Setup Oral Hygiene Where Assessed Edge of bed Oral Hygiene Comments unable to stand at the sink as pt is now attached to wound vac UE Dressing UE Dressing Level of Assistance Modified independent (with instruction from OT to dress affected side first and undress it last.) UE Dressing Where Assessed Edge of bed LE Dressing Pants Level of Assistance Modified independent Bed Mobility Lying to Sitting Assistance Supervision Sitting to Lying Assistance Supervision Functional Transfers Sit to Stand Assistance Standby assistance Stand to Sit Assistance Standby assistance Functional Mobility Walking Assistance Standby assistance Device Rolling walker Static Sitting Balance Static Sitting-Level of Assistance Independent Dynamic Sitting Balance Dynamic Sitting-Level of Assistance Supervision Static Standing Balance Static Standing-Level of Assistance Standby assistance Dynamic Standing Balance Dynamic Standing-Level of Assistance Standby assistance Cognition Orientation Level Oriented X4 Following Commands Follows all commands and directions without difficulty Insight Good insight into deficits OT Assessment OT Assessment Results (Pt is continuing to progress with functional transfers and mobility and is requiring only supervision for bed mobility supine/sit and is only requiring SBA for in room ambulation with FWW) ADDITIONAL COMMENTS: Chart reviewed. RN clears pt for session. Pt agrees to participate and received supine with HOB elevated, bed alarm activated, and tray table and call light within reach. All lines in place. Medical and safety precautions observed appropriately. Patient educated on Role of OT, Transfer Safety, Ambulation Safety, WB Status, ADL Techniques and Safety , Discharge Recommendation, Safety with AD, and importance of OOB activity . Fair verbal understanding and return demonstration. Additional education and training recommended. EXIT STATUS: Session ended with patient supine with HOB elevated, bed alarm activated, tray table and call lightwithin reach, and RN made aware. Needs in reach. RN notified. Assessment & Plan EDUCATION Education Documentation No documentation found. Education Comments No comments found. Encounter Problems Encounter Problems (Active) Template: Occupational Therapy Problem: OT Short Term Goals Dates: Start: 05/06/25 Goal: Pt will be able to perform transfers bed to chair using FWW with SBA of OT (Resolved) Dates: Start: 05/06/25 Expected End: 05/13/25 Resolved: 05/11/25 Outcomes Date/Time User Outcome 05/11/25 0951 Anne Spear OT Completed Goal: Pt will be able to perform toileting tasks including clothing management and hygiene with SBAfrom OT Dates: Start: 05/06/25 Expected End: 05/13/25 Outcomes Date/Time User Outcome 05/11/25 0951 Anne Spear OT Progressing Goal: Pt will be able to tolerate standing at sink to perform oral hygiene with SBA from OT (Resolved) Dates: Start: 05/06/25 Expected End: 05/13/25 Resolved: 05/11/25 Outcomes Date/Time User Outcome 05/11/25 0951 Anne Spear OT Completed Encounter Problems (Resolved) There are no resolved problems. Anne Spear OT * Amanda Woods MD - 05/14/2025 2:52 PM EST Images from the original note were not included. IMAN PROGRESS NOTE Date: 05/14/2025 Author: Amanda Woods MD Patient ID: Isabella Díaz is a 84 y.o. female : 1940 MR#: [id number] 05/01/2025 SUBJECTIVE Patient seen and examined today. No overnight events. Patient doing well. Status post I&D and VAC placement on 05/13/[address] Mojica. Patient doing well. Seen by Ortho follow-up with their recommendations likely to have repeat I&D tomorrow. Scheduled Medications PRN Medications IV Medications atorvastatin, 20 mg, Nightly ceFAZolin, 2 g, q8h cholecalciferol, 50,000 Units, Weekly cholestyramine, 4 g, BID with meals dorzolamide, 1 drop, BID enoxaparin, 40 mg, Daily latanoprost, 1 drop, Nightly metoprolol succinate, 25 mg, Daily PARoxetine, 20 mg, q AM polyetheylene glycol, 17 g, Nightly sodium chloride, 10 mL, BID acetaminophen, 650 mg, q6h PRN HYDROmorphone, 0.5 mg, q3h PRN naloxone, 0.04 mg, PRN ondansetron, 4 mg, q6h PRN oxyCODONE, 2.5 mg, q4h PRN oxyCODONE, 5 mg, q4h PRN sodium chloride, 10 mL, PRN sodium chloride, 42 mL/hr, PRN sodium chloride, 42 mL/hr, PRN sodium chloride, 42 mL/hr, PRN OBJECTIVE Vitals: 05/13/25 2048 05/14/25 0252 05/14/25 0811 05/14/25 1414 BP: 111/58 109/53 120/78 107/82 BP Location: Left arm;Upper Left arm Left arm Patient Position: Lying Sitting Sitting Pulse: 106 94 89 98 Resp: 16 18 16 Temp: 36.6 ??C (97.9 ??F) 36.5 ??C (97.7 ??F) 36.9 ??C (98.5 ??F) TempSrc: Oral Temporal Temporal SpO2: 94% 100% 98% 97% Weight: Height: Intake/Output Summary (Last 24 hours) at 05/14/2025 1452 Last data filed at 05/14/2025 0700 Gross per 24 hour Intake 878.33 ml Output 750 ml Net 128.33 ml Wt Readings from Last 1 Encounters: 05/04/25 1729 47.6 kg (105 lb) 05/01/25 1438 46.7 kg (103 lb) PHYSICAL EXAM: Gen: Alert oriented x 3, NAD CV -RRR no MGR Lungs -CTAB Abd - Soft, non-tender, non-distended Extremities -right knee immobilizer placed. Right hip wound dressing present VAC present neuro - AO x3 RESULTS: CBC BMP Results from last 7 days Lab Units 05/14/25 0707 05/13/25 0601 05/12/25 0545 05/11/25 0616 05/10/25 0601 WBC AUTO K/mcL 12.0* 9.8 8.1 7.8 8.3 HEMOGLOBIN g/dL 9.9* 10.2* 9.9* 9.7* 9.5* HEMATOCRIT % 31.9* 32.9* 31.4* 30.6* 29.3* PLATELETS K/mcL 470* 463* 407* 366 327 LYMPHS PCT AUTO % -- 16.2 14.2 14.1 16.1 MONO PCT AUTO % -- 12.7 13.5 15.5 17.2 EOS PCT AUTO % -- 3.8 4.1 3.8 4.5 Results from last 7 days Lab Units 05/14/25 0707 05/13/25 0601 05/12/25 0545 05/10/25 0601 SODIUM mmol/L 139 143 142 140 POTASSIUM mmol/L 4.2 4.6 4.5 4.4 CHLORIDE mmol/L 100 102 103 104 CO2 mmol/L 31 32 33* 34* ANION GAP 8 9 6 2* BUN mg/dL 25 27* 24 27* CREATININE mg/dL 0.71 0.74 0.62 0.68 CALCIUM mg/dL 8.3* 8.4* 8.8 8.6 Results from last 7 days Lab Units 05/14/25 0707 05/13/25 0601 05/12/25 0545 05/10/25 0601 05/09/25 0756 POCT GLUCOSE mg/dL -- -- -- -- 88 GLUCOSE mg/dL 93 84 88 96 -- No lab exists for component: TBIL , BILID Recent Results (from the past week) Culture wound deep Collection Time: 05/13/25 10:22 AM Specimen: Thigh, Right; Swab Result Value Ref Range Culture, Wound Gram negative bacilli (A) Gram Stain Result Few Polymorphonuclear leukocytes Gram Stain Result No epithelial cells seen Gram Stain Result No organisms seen Culture wound deep Collection Time: 05/13/25 10:24 AM Specimen: Hip, Right; Swab Result Value Ref Range Culture, Wound Gram negative bacilli (A) Gram Stain Result Few Polymorphonuclear leukocytes Gram Stain Result No epithelial cells seen Gram Stain Result No organisms seen Culture wound deep Collection Time: 05/13/25 10:25 AM Specimen: Hip, Right; Swab Result Value Ref Range Culture, Wound Gram negative bacilli (A) Gram Stain Result Few Polymorphonuclear leukocytes Gram Stain Result No epithelial cells seen Gram Stain Result No organisms seen Imaging: XR Femur 1 View Right Narrative: History: Postop right femur fracture repair. Comparison: 05/01/25 (preop). Findings: Portable AP views of the right femur from 11:40 AM are submitted from the PACU. The patient has undergone interim open reduction and internal fixation of a distal femoral diaphyseal fracture which occurred just distal to the most inferior surgical screw of a pre-existing long metal sideplate. There are 2 new metal side plates along the distal femur now, one on the lateral sideextending from the mid diaphysis to the distal metaphysis and a second, shorter plate extending from the distal diaphysis to the distal metaphysis, traversing the fracture. The major fracture fragments are in anatomic alignment. 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 Lateral skin carmel are noted. Impression: Impression: New postop changes in the distal femur, with 2 additional sideplates placed, traversing the acute distal femoral diaphyseal fracture. Alignment of the major fracture fragments is anatomic. Romeo SUMNER ([id number]) -------- FINAL REPORT -------- Dictated By: Carmen Prado Dictated Date: 05/13/2025 16:08 ET Assigned Physician: Carmen Prado Reviewed and Electronically Signed By: Carmen Prado Signed Date: 05/13/2025 16:13 ET Workstation ID: [id number] Transcribed By: Self Edit Transcribed Date: 05/13/2025 16:08 ET XR Hip 1 View Right Narrative: XR HIP 1 VIEW RIGHT INDICATION: Post-op evaluation following repair in pacu TECHNIQUE: XR HIP 1 VIEW RIGHT COMPARISON: None Impression: FINDINGS/IMPRESSION: Immediate postoperative radiograph with expected recent postsurgical changes in the adjacent soft tissues. See operative report for further details. Right hip arthroplasty with plate and screw fixation of the proximal femur remote pubic rami fractures and significant degenerative changes of the lumbar spine. -------- FINAL REPORT -------- Dictated By: Henry Forrester Dictated Date: 05/13/2025 13:18 ET Assigned Physician: Henry Forrester Reviewed and Electronically Signed By: Henry Forrester Signed Date: 05/13/2025 13:19 ET Workstation ID: [id number] Transcribed By: Self Edit Transcribed Date: 05/13/2025 13:18 ET ASSESSMENT & PLAN 84-year-old female with PMH of A-fib on Eliquis, HTN, COPD, CHF/Takotsubo cardiomyopathy among others who presented with right leg pain. Patient recently suffered right hip femur fracture and was treated with total hip replacement. Postoperatively she had seroma/hematoma which required I&D which was not infected. Subsequently she was at the rehab but while undergoing PT developed severe pain and was found to have periprosthetic fracture of the right femur in the area of distal screw hole ofthe plate. Therefore patient was brought to the hospital and orthopedic surgical team was consulted. Patient with a right distal femur fracture Status post removal of previous hardware with ORIF of right distal femur with intramedullary and lateral locked plating Patient seen by Ortho Per Ortho patient is still draining from her surgical wound. Patient taken to the OR on 05/13/2025 for right distal femur nonexcisional irrigation and debridement of the wound with VAC placement Continue to follow-up with VAC output and intraoperative cultures. She will need to return to the OR again tomorrow for potential repeat irrigation debridement potential closure Continue with weightbearing as tolerated on affected extremity with walker protection PT OT recommending rehab Pain control Acute blood loss anemia postop with underlying chronic anemia status post 3 units of blood transfusions. Hemoglobin remained stable for now. Will continue to monitor Chronic A-fib with secondary hypercoagulable state Eliquis on hold at this time. Patient on Lovenox. On discharge patient to be on aspirin 81 mg twice daily until follow-up with Ortho and once wound stabilize and Ortho clears to transition back to Eliquis. Per Ortho her Eliquis should be held until the wound completely settles. Also given that she has fallen multiple times not sure resuming the Eliquis will be a good idea. History of Takotsubo's cardiomyopathy with chronic systolic heart failure Ejection fraction 40 to 45% Resume metoprolol Depression anxiety on paroxetine Dyslipidemia on statin Glaucoma on eyedrops DVT Prophylaxis Lovenox Full Code - Confirmed Disposition postprocedure today. Will need to return to the OR tomorrow am for potential repeat irrigation debridement and potential closure * Carolina Gold, PT - 05/14/2025 11:45 AM EST [facility] Physical Therapy Treatment PT Discharge Recommendations: assisted facility placement Staff Recommendations for safe patient handling: CG with walker 40' , min A sit to stand Precautions Medical Precautions: Fall Risk, Limb restriction Safety Interventions: Call cabrera within reach, ID band on, Chair alarm RUE Weight Bearing Status: Full LUE Weight Bearing Status: Full RLE Weight Bearing Status: As Tolerated LLE Weight Bearing Status: Full Orthopedic Precautions: (avoid excessive ROM) Orthoses Applied: (metal hinged knee brace) Prosthesis/Orthosis Used: KAFO, Right History of Present Illness: Patient is a 84 y.o. female admitted to [facility] on 05/01/2025 with: Problem List[1] Fall prevention education provided including use of call light in hospital, use of appropriate assistive device, safe mobility techniques, and safety measures at home. Continue PT as per POC. Subjective The exercises make me feel like I am getting stronger Objective 05/14/25 1145 PT Last Visit PT Received On 05/14/25 General Family/Caregiver Present No PT Time Calculation PT Start Time 1145 PT Stop Time 1215 PT Time Calculation (min) 30 min Precautions Medical Precautions Fall Risk;Limb restriction Safety Interventions Call cabrera within reach;ID band on;Chair alarm RUE Weight Bearing Status Full LUE Weight Bearing Status Full RLE Weight Bearing Status As Tolerated LLE Weight Bearing Status Full Orthopedic Precautions (avoid excessive ROM) Orthoses Applied (metal hinged knee brace) Vital Signs Patient Identification Yes Pain Assessment Pain Assessment 0-10 Pain Score 2 Pain Type Surgical pain Pain Location Knee Pain Orientation Right Cognition Orientation Level Oriented X4 Transfers Sit to Stand Assistance Contact guard Ambulation Walking Assistance Contact guard Device Rolling walker Pattern (she has decreased step length on the R and she has mild circumduction of the L LE. R LE appears a little shorter then the L.) Distance Ambulated (ft) (40' x 2 with seated rest breaks) Procedures Procedures Gait Training;Therapeutic Exercise Gait Training Gait Training Time Entry 15 Gait Training Activity 1 The pt was able to transfer sit to stand with CG from the bed and min A for lift off from the bedside chair due to lower chair. The pt was able to ambulate 40' x 2 with walker and CG. She was noted to have circumduction of the L LE . She she fatigues step length decreases B. Therapeutic Exercise Therapeutic Exercise Time Entry 15 Therapeutic Exercise Activity 1 the pt completed seated LAQ B with min A of the R LE to get full extension and min A to control the eccentric contraction. She was then placed in supine and educated on quad sets with poor contraction noted and tapping of muscle belly to ilicit the contraction. She then complete SAQ with min A to control the speed of the eccentric contraction, heel slides to [id number] with S . She was instructed to complete quad sets throughout the day while in bed. PT Assessment PT Assessment Results Decreased strength;Decreased endurance Prognosis Good Medical Staff Made Aware Yes Plan Treatment/Interventions Functional transfer training;LE strengthening/ROM;Endurance training;Bed mobility;Gait training PT Plan Skilled PT PT Frequency 2-5 days per week PT Discharge Recommendations assisted facility placement PT - Evaluation Status Complete Procedure/Treatment: Procedures Procedures: Gait Training, Therapeutic Exercise Gait Training Gait Training Time Entry: 15 Gait Training Activity 1: The pt was able to transfer sit to stand with CG from the bed and min A for lift off from the bedside chair due to lower chair. The pt was able to ambulate 40' x 2 with walker and CG. She was noted to have circumduction of the L LE . She she fatigues step length decreases B . Therapeutic Exercise Therapeutic Exercise Time Entry: 15 Therapeutic Exercise Activity 1: the pt completed seated LAQ B with min A of the R LE to get full extension and min A to control the eccentric contraction. She was then placed in supine and educated on quad sets with poor contraction noted and tapping of muscle belly to ilicit the contraction. She then complete SAQ with min A to control the speed of the eccentric contraction, heel slides to approx 30 with S . She was instructed to complete quad sets throughout the day while in bed. Patient left lying supine in bed. RN notified of pt. status, location, response to treatment, and therapy recommendations. Physical Therapy Assessment/Plan PT Assessment PT Assessment Results: Decreased strength, Decreased endurance Prognosis: Good Evaluation/Treatment Tolerance: Patient tolerated treatment well Medical Staff Made Aware: Yes Plan Treatment/Interventions: Functional transfer training, LE strengthening/ROM, Endurance training, Bed mobility, Gait training PT Plan: Skilled PT PT Frequency: 2-5 days per week PT Duration of Sessions: 15-30 min per session PT Treatments per day: 1 time per day PT Discharge Recommendations: assisted facility placement Equipment Recommended: Walker - rolling PT - Evaluation Status: Complete Physical Therapy Goals/Education Encounter Problems Encounter Problems (Active) Template: Physical Therapy Problem: PT Short Term Goals Dates: Start: 05/06/25 Goal: Patient will ambulate with rwalker, hingeknee brace, wbat, stand by assist (Resolved) Dates: Start: 05/06/25 Expected End: 05/12/25 Resolved: 05/07/25 Outcomes Date/Time User Outcome 05/07/25 1652 Kamilla Bermudez, ELEANOR Completed Goal: Patient will ambulate with rwalker, hinge knee brace, wbat, x 50 ft, stand by assist Dates: Start: 05/06/25 Expected End: 05/13/25 Outcomes Date/Time User Outcome 05/12/25 1130 Herlinda iVllagran, PT Progressing Goal: Patient will be able to safely negotiate 5 stairs with 1 rail, min assist Dates: Start: 05/06/25 Expected End: 05/13/25 Outcomes Date/Time User Outcome 05/12/25 1130 Herlinda Villagran, PT Progressing Encounter Problems (Resolved) There are no resolved problems. Education Documentation Precautions, taught by Carolina Gold PT at 05/14/2025 1:33 PM. Learner: Patient Readiness: Eager Method: Explanation, Demonstration Response: Verbalizes Understanding, Demonstrated Understanding Comment: Educated on doing quad sets throughout the day in bed ADL Training, taught by Carolina Gold PT at 05/14/2025 1:33 PM. Learner: Patient Readiness: Eager Method: Explanation, Demonstration Response: Verbalizes Understanding, Demonstrated Understanding Comment: Educated on doing quad sets throughout the day in bed Home Exercise Program, taught by Carolina Gold PT at 05/14/2025 1:33 PM. Learner: Patient Readiness: Eager Method: Explanation, Demonstration Response: Verbalizes Understanding, Demonstrated Understanding Comment: Educated on doing quad sets throughout the day in bed Mobility Training, taught by Carolina Gold PT at 05/14/2025 1:33 PM. Learner: Patient Readiness: Eager Method: Explanation, Demonstration Response: Verbalizes Understanding, Demonstrated Understanding Comment: Educated on doing quad sets throughout the day in bed Education Comments No comments found. Carolina Gold, PT [1] Patient Active Problem List Diagnosis Atrial fibrillation ([facility] V24, [facility] V28) CHF (congestive heart failure) ([facility] V24, [facility] V28) Collagenous colitis Depression HTN (hypertension) Mitral valve regurgitation Takotsubo cardiomyopathy C. 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 S/P right hip fracture Closed displaced subtrochanteric fracture of right femur ([facility] V24, [facility] V28) Bleeding from right hip wound Atrial fibrillation with rapid ventricular response ([facility] V24, [facility] V28) Moderate malnutrition ([facility] V24) Periprosthetic fracture around prosthetic joint, initial encounter Other closed fracture of distal end of right femur, initial encounter ([facility] V24, [facility] V28) Sharron-prosthetic fracture of femur at tip of prosthesis Hematoma of left thigh * BURAK Romero - 05/14/2025 9:47 AM EST Orthopedic Trauma Progress Note CHIEF COMPLAINT Postop follow up SURGERY ORIF right femur on 05-05-[address] Baeza ASSESSMENT/PLAN Patient is postop day 9 status post ORIF right femur by Dr. Baeza. Patient is stable. Patient has acute on chronic anemia in the setting of being postop and has received multiple transfusions. Patient's dressing has required multiple changes for persistent drainage. The patient has historically haddrainage from her surgical wound. She is now POD#1 I+D and VAC placement due to increased drainage.Consider repeat I+D tomorrow. - Weightbearing: Continue weightbearing as tolerated on affected extremity with walker protection - Activity: Encourage out of bed with fall risk protocol; continue foot and ankle pumps while resting; do not push right hip past comfort, may flex to 90 degrees while sitting - Therapy: Continue PT/OT - Pain control: Continue current regimen; apply ice to affected area as needed - Dressing/wound care/DME: Dressing should remain clean and dry; nursing may reinforce as needed; ortho team will continue to evaluate daily - Misc: Continue IS; appreciate medical team management of comorbidities - Labs: Continue to trend H/H and transfuse as needed - DVT prophylaxis: Pneumatic compression stockings; per primary team while inpatient, consider Lovenox SQ 40 mg daily; on discharge, PO ASA 81 mg BID for 6 weeks from surgery - Dispo: on hold until wound care plan established. SUBJECTIVE Overnight: No overnight events reported. Patient states she is generally doing well. States that the pain is well- controlled. Patient deniesnumbness and paresthesias. OBJECTIVE Vitals: 05/14/25 0811 BP: 120/78 Pulse: 89 Resp: 18 Temp: 36.5 ??C (97.7 ??F) SpO2: 98% General: Alert and cooperative, lying comfortably in bed, in no acute distress HEENT: Normocephalic and atraumatic Pulmonary: No increased work of breathing appreciated and able to speak in full sentences Musculoskeletal: Right lower extremity- hinged knee brace in place, Wound VAC in place. 150cc dark sanguinous fluid in canister. She fires EHL/FHL, dorsiflexion/plantarflexion intact, sensation intact distally, appears well-perfused Skin: Generally normal tone, dry, warm Lab Results Component Value Date WBC 12.0 (H) 05/14/2025 HGB 9.9 (L) 05/14/2025 HCT 31.9 (L) 05/14/2025 PLT 470 (H) 05/14/2025 Lab Results Component Value Date NA 139 05/14/2025 K 4.2 05/14/2025 CL 100 05/14/2025 BUN 25 05/14/2025 CREATININE 0.71 05/14/2025 GLUCOSE 93 05/14/2025 CALCIUM 8.3 (L) 05/14/2025 Lab Results Component Value Date CRP 10.90 (H) 04/09/2025 No results found for: HGBA1C Lab Results Component Value Date PT 13.8 05/04/2025 Patient seen with and above agreed to by Dr. Mojica. Kamilla Swan PA-C * Yeni Paulino RN - 05/13/2025 5:13 PM EST Goals: Go back to rehab Identify possible barriers to meeting goals/advancing plan of care: S/p wound vac placement Stability of the patient: Moderately Unstable - Medium risk of patient condition declining or worsening End of Shift Summary: * Temitope Hernandez RN - 05/13/2025 2:49 PM EST JEFF: 05/16 Barrier: OR today for I&D with wound vac placement, will most likely go to OR again this week, IV antibiotics Plan: return to [facility] * Amanda Woods MD - 05/13/2025 1:25 PM EST Images from the original note were not included. IMAN PROGRESS NOTE Date: 05/13/2025 Author: Amanda Woods MD Patient ID: Isabella Díaz is a 84 y.o. female : 1940 MR#: [id number] 05/01/2025 SUBJECTIVE Patient seen and examined today. Patient was taken to the OR today for right distal femur nonexcisional irrigation and debridement of wound with VAC placement. Patient tolerated procedure Scheduled Medications PRN Medications IV Medications atorvastatin, 20 mg, Nightly cholecalciferol, 50,000 Units, Weekly cholestyramine, 4 g, BID with meals dorzolamide, 1 drop, BID [START ON 05/14/2025] enoxaparin, 40 mg, Daily latanoprost, 1 drop, Nightly metoprolol succinate, 25 mg, Daily PARoxetine, 20 mg, q AM polyetheylene glycol, 17 g, Nightly sodium chloride, 10 mL, BID acetaminophen, 650 mg, q6h PRN HYDROmorphone, 0.5 mg, q3h PRN naloxone, 0.04 mg, PRN ondansetron, 4 mg, q6h PRN oxyCODONE, 2.5 mg, q4h PRN oxyCODONE, 5 mg, q4h PRN sodium chloride, 10 mL, PRN sodium chloride, 42 mL/hr, PRN sodium chloride, 42 mL/hr, PRN sodium chloride, 42 mL/hr, PRN lactated Ringer's, Last Rate: 1,000 mL (05/13/25 1239) OBJECTIVE Vitals: 05/13/25 1130 05/13/25 1145 05/13/25 1210 05/13/25 1211 BP: 137/81 125/72 (!) 130/92 BP Location: Patient Position: Pulse: 97 86 53 (!) 47 Resp: Temp: TempSrc: SpO2: 95% 96% 96% 92% Weight: Height: Intake/Output Summary (Last 24 hours) at 05/13/2025 1325 Last data filed at 05/13/2025 1049 Gross per 24 hour Intake 500 ml Output -- Net 500 ml Wt Readings from Last 1 Encounters: 05/04/25 1729 47.6 kg (105 lb) 05/01/25 1438 46.7 kg (103 lb) PHYSICAL EXAM: Gen: Alert oriented x 3, NAD CV -RRR no MGR Lungs -CTAB Abd - Soft, non-tender, non-distended Extremities -right knee immobilizer placed. Right hip wound dressing present VAC present neuro - AO x3 RESULTS: CBC BMP Results from last 7 days Lab Units 05/13/25 0601 05/12/25 0545 05/11/25 0616 05/10/25 0601 WBC AUTO K/mcL 9.8 8.1 7.8 8.3 HEMOGLOBIN g/dL 10.2* 9.9* 9.7* 9.5* HEMATOCRIT % 32.9* 31.4* 30.6* 29.3* PLATELETS K/mcL 463* 407* 366 327 LYMPHS PCT AUTO % 16.2 14.2 14.1 16.1 MONO PCT AUTO % 12.7 13.5 15.5 17.2 EOS PCT AUTO % 3.8 4.1 3.8 4.5 Results from last 7 days Lab Units 05/13/25 0601 05/12/25 0545 05/10/25 0601 05/08/25 0701 SODIUM mmol/L 143 142 140 140 POTASSIUM mmol/L 4.6 4.5 4.4 4.3 CHLORIDE mmol/L 102 103 104 105 CO2 mmol/L 32 33* 34* 30 ANION GAP 9 6 2* 5 BUN mg/dL 27* 24 27* 26* CREATININE mg/dL 0.74 0.62 0.68 0.56 CALCIUM mg/dL 8.4* 8.8 8.6 8.1* Results from last 7 days Lab Units 05/13/25 0601 05/12/25 0545 05/10/25 0601 05/09/25 0756 05/08/25 0701 POCT GLUCOSE mg/dL -- -- -- 88 -- GLUCOSE mg/dL 84 88 96 -- 95 No lab exists for component: TBIL , BILID Recent Results (from the past week) Culture wound deep Collection Time: 05/13/25 10:22 AM Specimen: Thigh, Right; Swab Result Value Ref Range Gram Stain Result Few Polymorphonuclear leukocytes Gram Stain Result No epithelial cells seen Gram Stain Result No organisms seen Culture wound deep Collection Time: 05/13/25 10:24 AM Specimen: Hip, Right; Swab Result Value Ref Range Gram Stain Result Few Polymorphonuclear leukocytes Gram Stain Result No epithelial cells seen Gram Stain Result No organisms seen Culture wound deep Collection Time: 05/13/25 10:25 AM Specimen: Hip, Right; Swab Result Value Ref Range Gram Stain Result Few Polymorphonuclear leukocytes Gram Stain Result No epithelial cells seen Gram Stain Result No organisms seen Imaging: XR Hip 1 View Right Narrative: XR HIP 1 VIEW RIGHT INDICATION: Post-op evaluation following repair in pacu TECHNIQUE: XR HIP 1 VIEW RIGHT COMPARISON: None Impression: FINDINGS/IMPRESSION: Immediate postoperative radiograph with expected recent postsurgical changes in the adjacent soft tissues. See operative report for further details. Right hip arthroplasty with plate and screw fixation of the proximal femur remote pubic rami fractures and significant degenerative changes of the lumbar spine. -------- FINAL REPORT -------- Dictated By: Henry Forrester Dictated Date: 05/13/2025 13:18 ET Assigned Physician: Henry Forrester Reviewed and Electronically Signed By: Henry Forrester Signed Date: 05/13/2025 13:19 ET Workstation ID: [id number] Transcribed By: Self Edit Transcribed Date: 05/13/2025 13:18 ET ASSESSMENT & PLAN 84-year-old female with PMH of A-fib on Eliquis, HTN, COPD, CHF/Takotsubo cardiomyopathy among others who presented with right leg pain. Patient recently suffered right hip femur fracture and was treated with total hip replacement. Postoperatively she had seroma/hematoma which required I&D which was not infected. Subsequently she was at the rehab but while undergoing PT developed severe pain and was found to have periprosthetic fracture of the right femur in the area of distal screw hole ofthe plate. Therefore patient was brought to the hospital and orthopedic surgical team was consulted. Patient with a right distal femur fracture Status post removal of previous hardware with ORIF of right distal femur with intramedullary and lateral locked plating Patient seen by Ortho Per Ortho patient is still draining from her surgical wound. Patient taken to the OR today on 05/13/2025 for right distal femur nonexcisional irrigation and debridement of the wound with VAC placement Continue to follow-up with VAC output and intraoperative cultures. She will need to return to the OR later this week for potential repeat irrigation debridement potential closure Continue with weightbearing as tolerated on affected extremity with walker protection PT OT recommending rehab Pain control Acute blood loss anemia postop with underlying chronic anemia status post 3 units of blood transfusions. Hemoglobin remained stable for now. Will continue to monitor Chronic A-fib with secondary hypercoagulable state Eliquis on hold at this time. Patient on Lovenox. On discharge patient to be on aspirin 81 mg twice daily until follow-up with Ortho and once wound stabilize and Ortho clears to transition back to Eliquis. Per Ortho her Eliquis should be held until the wound completely settles. Also given that she has fallen multiple times not sure resuming the Eliquis will be a good idea. History of Takotsubo's cardiomyopathy with chronic systolic heart failure Ejection fraction 40 to 45% Resume metoprolol Depression anxiety on paroxetine Dyslipidemia on statin Glaucoma on eyedrops DVT Prophylaxis Lovenox Full Code - Confirmed Disposition postprocedure today. Will need to return to the OR later this week for potential repeatirrigation debridement and potential closure * Jenise Carmona RN - 05/13/2025 4:02 AM EST Goals: Problem: Sensory: Acute Pain Goal: Pain level will improve or be tolerable Outcome: Progressing Identify possible barriers to meeting goals/advancing plan of care: await procedure Stability of the patient: Moderately Stable - Low risk of patient condition declining or worsening End of Shift Summary: vss afebrile. Dsg r upper thigh reinforced. Pain controlled. Voiding qs. * Kim Norris RN - 05/12/2025 4:20 PM EST Goals: Identify possible barriers to meeting goals/advancing plan of care: surgical clearance Stability of the patient: Moderately Stable - Low risk of patient condition declining or worsening End of Shift Summary: pt offers no complaints. Pt getting oob with 1 assist. Pt tolerating diet. Right leg immobilizer in place. Maintain pt safety. * Charley Clark - 05/12/2025 1:48 PM EST SPIRITUAL CARE Date/Time:05/12/25 at 1:48 PM EST Type of Visit: Initial Visit and Fundraising Officer Rounding Reason for Visit: Spiritual/Emotional Support and Spiritual Assessment Time Spent: 10 Minutes Location: [address] [place] [address] Sacramental Encounters: Spiritual Distress Assessment: Spiritual Distress Assessment at beginning of visit Meaning - Overall Life Balance: Some evidence of unmet spiritual need Transcendence: No evidence of unmet spiritual need Values - Acknowledgement: No evidence of unmet spiritual need Values - Control: No evidence of unmet spiritual need Psycho-Social Identity: No evidence of unmet spiritual need SDAT Beginning of Visit Average Score: 0.2 Spiritual Distress Assessment at end of visit Meaning - Overall Life Balance: Some evidence of unmet spiritual need Transcendence: No evidence of unmet spiritual need Values - Acknowledgement: No evidence of unmet spiritual need Values - Control: No evidence of unmet spiritual need Psycho-Social Identity: No evidence of unmet spiritual need SDAT End of Visit Average Score: 0.2 Spiritual Assessment/Distress Spiritual Care Assessment: Assessment: Isabella, was awake, alert, sitting up in the bed resting at the time of visit. Happy with the progress and improvement. Voiced being well cared for by caregivers describing them as wonderful . Praised their effort toward making her get better. Voiced being supported by family. Karen restoration is Lutheran, prayed for good health. Thankful for the visit. Intervention: NE Spiritual Care Interventions : provided support, explored hope, listened empathically, and provided prayer Outcomes: expressed gratitude and expressed peace Plan of Care: Visit as needed *Reference: Spiritual Distress Assessment Tool: The SDAT is a clinical tool used by chaplains to identify unmet spiritual and emotional needs that can impact Goals of Care in the following categories: Spiritual Distress Assessment Legend Spiritual Needs Related Questions Meaning Are you having difficulties coping with what is happening to your now? Does your hospitalization have any repercussions on the way you live usually? Transcendence Do you have a particular restoration, karen, or spirituality? Is your restoration/spirituality/karen challenged by what is happening to you now? Values Do you think that the health professionals caring for you know you well enough? Do you feel that you are participating in the decisions made about your care? Psycho-Social Identity Do you have any worries or difficulties regarding your family or other persons close to you? Do you feel lonely? Do you have links to your karen community? SCALE 0= no evidence of unmet spiritual needs 1= some evidence of unmet spiritual needs 2= substantial evidence of unmet spiritual needs 3= evidence of severe unmet spiritual needs * Amanda Woods MD - 05/12/2025 12:07 PM EST Images from the original note were not included. IMAN PROGRESS NOTE Date: 05/12/2025 Author: Amanda Woods MD Patient ID: Isabella Díaz is a 84 y.o. female : 1940 MR#: [id number] 05/01/2025 SUBJECTIVE Patient seen and examined today. Feeling fine. No overnight events. Seen by Ortho today. And patient continues to have drainage from her surgical wound. Per Ortho patient will require another I&Dand possible drain versus VAC placement to prevent further infection. Scheduled Medications PRN Medications IV Medications atorvastatin, 20 mg, Nightly cholecalciferol, 50,000 Units, Weekly cholestyramine, 4 g, BID with meals dorzolamide, 1 drop, BID enoxaparin, 40 mg, Daily latanoprost, 1 drop, Nightly metoprolol succinate, 25 mg, Daily PARoxetine, 20 mg, q AM polyetheylene glycol, 17 g, Nightly sodium chloride, 10 mL, BID acetaminophen, 650 mg, q6h PRN HYDROmorphone, 0.5 mg, q3h PRN naloxone, 0.04 mg, PRN ondansetron, 4 mg, q6h PRN oxyCODONE, 2.5 mg, q4h PRN oxyCODONE, 5 mg, q4h PRN sodium chloride, 10 mL, PRN sodium chloride, 42 mL/hr, PRN sodium chloride, 42 mL/hr, PRN sodium chloride, 42 mL/hr, PRN OBJECTIVE Vitals: 05/11/25 1957 05/12/25 0513 05/12/25 0810 05/12/25 0929 BP: 137/82 137/85 (!) 143/95 BP Location: Left arm Left arm Right arm Patient Position: Lying Lying Pulse: 98 89 (!) 49 104 Resp: Temp: 37.5 ??C (99.5 ??F) 36.3 ??C (97.3 ??F) 36.8 ??C (98.2 ??F) TempSrc: Temporal Temporal Temporal SpO2: 95% 96% 95% 96% Weight: Height: Intake/Output Summary (Last 24 hours) at 05/12/2025 1207 Last data filed at 05/12/2025 1100 Gross per 24 hour Intake 0 ml Output 1 ml Net -1 ml Wt Readings from Last 1 Encounters: 05/04/25 1729 47.6 kg (105 lb) 05/01/25 1438 46.7 kg (103 lb) PHYSICAL EXAM: Gen: Alert oriented x 3, NAD CV -RRR no MGR Lungs -CTAB Abd - Soft, non-tender, non-distended Extremities -right knee immobilizer placed. Right hip wound dressing present neuro - AO x3 RESULTS: CBC BMP Results from last 7 days Lab Units 05/12/25 0545 05/11/25 0616 05/10/25 0601 05/09/25 0651 WBC AUTO K/mcL 8.1 7.8 8.3 7.8 HEMOGLOBIN g/dL 9.9* 9.7* 9.5* 8.2* HEMATOCRIT % 31.4* 30.6* 29.3* 26.3* PLATELETS K/mcL 407* 366 327 305 LYMPHS PCT AUTO % 14.2 14.1 16.1 14.1 MONO PCT AUTO % 13.5 15.5 17.2 13.3 EOS PCT AUTO % 4.1 3.8 4.5 4.0 Results from last 7 days Lab Units 05/12/25 0545 05/10/25 0601 05/08/25 0701 05/07/25 0634 SODIUM mmol/L 142 140 140 139 POTASSIUM mmol/L 4.5 4.4 4.3 3.7 CHLORIDE mmol/L 103 104 105 104 CO2 mmol/L 33* 34* 30 30 ANION GAP 6 2* 5 5 BUN mg/dL 24 27* 26* 22 CREATININE mg/dL 0.62 0.68 0.56 0.71 CALCIUM mg/dL 8.8 8.6 8.1* 8.4* Results from last 7 days Lab Units 05/12/25 0545 05/10/25 0601 05/09/25 0756 05/08/25 0705/07/25 0634 POCT GLUCOSE mg/dL -- -- 88 -- -- GLUCOSE mg/dL 88 96 -- 95 106* No lab exists for component: TBIL , BILID No results found for this or any previous visit (from the past week). Imaging: XR Femur 2+ Views Right Narrative: HISTORY: The patient is an 84-year-old female with a fracture of the distal right femur. FINDINGS: 8 fluoroscopic spot radiographs of the right femur obtained in the operating room are submitted. The study documents placement of an internal fixation plate and screws transfixing the fracture of the distal femur initially seen on preoperative radiographs performed 05/01/2025. The surgicalhardware appears well-positioned and intact. Near-anatomic alignment has been restored to the fracture site. 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 Impression: Satisfactory appearance following internal fusion of a fracture of the distal right femur. Pre-existing surgical hardware is also again noted. The dose-area product for this procedure was 1655.5 mGy*cm2. PQRI CPT II G9500 -------- FINAL REPORT -------- Dictated By: Casimiro Ryan Dictated Date: 05/06/2025 07:45 ET Assigned Physician: Casimiro Ryan Reviewed and Electronically Signed By: Casimiro Ryan Signed Date: 05/06/2025 07:48 ET Workstation ID: [id number] Transcribed By: Self Edit Transcribed Date: 05/06/2025 07:45 ET ASSESSMENT & PLAN 84-year-old female with PMH of A-fib on Eliquis, HTN, COPD, CHF/Takotsubo cardiomyopathy among others who presented with right leg pain. Patient recently suffered right hip femur fracture and was treated with total hip replacement. Postoperatively she had seroma/hematoma which required I&D which was not infected. Subsequently she was at the rehab but while undergoing PT developed severe pain and was found to have periprosthetic fracture of the right femur in the area of distal screw hole ofthe plate. Therefore patient was brought to the hospital and orthopedic surgical team was consulted. Patient with a right distal femur fracture Status post removal of previous hardware with ORIF of right distal femur with intramedullary and lateral locked plating Patient seen by Ortho She is postop day 7 today. Per Ortho patient is still draining from her surgical wound. Will need another I&D with possible drain versus VAC placement today. Continue with weightbearing as tolerated on affected extremity with walker protection PT OT recommending rehab Pain control Acute blood loss anemia postop with underlying chronic anemia status post 3 units of blood transfusions. Hemoglobin remained stable for now. Will continue to monitor Chronic A-fib with secondary hypercoagulable state Eliquis on hold at this time. Patient on Lovenox. On discharge patient to be on aspirin 81 mg twice daily until follow-up with Ortho and once wound stabilize and Ortho clears to transition back to Eliquis. History of Takotsubo's cardiomyopathy with chronic systolic heart failure Ejection fraction 40 to 45% Resume metoprolol Depression anxiety on paroxetine Dyslipidemia on statin Glaucoma on eyedrops DVT Prophylaxis Lovenox Full Code - Confirmed Disposition repeat I and D today with drain/vac placement * BURAK Romero - 05/12/2025 12:00 PM EST Orthopedic Trauma Progress Note CHIEF COMPLAINT Postop follow up SURGERY ORIF right femur on 05-05-[address] Baeza ASSESSMENT/PLAN Patient is postop day 7 status post ORIF right femur by Dr. Baeza. Patient is stable. Patient has acute on chronic anemia in the setting of being postop and has received multiple transfusions. Patient's dressing has required multiple changes for persistent drainage. The patient has historically haddrainage from her surgical wound. Unfortunately there is still drainage at the mid-proximal aspect of the incision. Decision made to more forward with I+D and possible drain vs VAC placement to prevent infection. - Weightbearing: Continue weightbearing as tolerated on affected extremity with walker protection - Activity: Encourage out of bed with fall risk protocol; continue foot and ankle pumps while resting; do not push right hip past comfort, may flex to 90 degrees while sitting - Therapy: Continue PT/OT - Pain control: Continue current regimen; apply ice to affected area as needed - Dressing/wound care/DME: Dressing should remain clean and dry; nursing may reinforce as needed; ortho team will continue to evaluate daily - Misc: Continue IS; appreciate medical team management of comorbidities - Labs: Continue to trend H/H and transfuse as needed - DVT prophylaxis: Pneumatic compression stockings; per primary team while inpatient, consider Lovenox SQ 40 mg daily; on discharge, PO ASA 81 mg BID for 6 weeks from surgery - Dispo: Anticipate discharge to rehab when medically appropriate, likely later this week SUBJECTIVE Overnight: No overnight events reported. Patient states she is generally doing well. States that the pain is well- controlled. Patient deniesnumbness and paresthesias. OBJECTIVE Vitals: 05/12/25 0929 BP: Pulse: 104 Resp: Temp: SpO2: 96% General: Alert and cooperative, lying comfortably in bed, in no acute distress HEENT: Normocephalic and atraumatic Pulmonary: No increased work of breathing appreciated and able to speak in full sentences Musculoskeletal: Right lower extremity- hinged knee brace in place, Dressing removed. Dressing are saturated with serosanguinous material proximally with an active ooze from one particular spot in the incision. Mild erythema along the staple line diffusely. staple line distally is clean/dry/intact,She does have diffuse edema throughout leg and probable hematoma mass just proxiaml to the area of oozing. She fires EHL/FHL, dorsiflexion/plantarflexion intact, sensation intact distally, appears well-perfused Skin: Generally normal tone, dry, warm Lab Results Component Value Date WBC 8.1 05/12/2025 HGB 9.9 (L) 05/12/2025 HCT 31.4 (L) 05/12/2025 PLT 407 (H) 05/12/2025 Lab Results Component Value Date NA 142 05/12/2025 K 4.5 05/12/2025 CL 103 05/12/2025 BUN 24 05/12/2025 CREATININE 0.62 05/12/2025 GLUCOSE 88 05/12/2025 CALCIUM 8.8 05/12/2025 Lab Results Component Value Date CRP 10.90 (H) 04/09/2025 No results found for: HGBA1C Lab Results Component Value Date PT 13.8 05/04/2025 Patient seen with and above agreed to by Dr. Mojica. Kamilla Swan PA-C * Saritha Calixto RD - 05/12/2025 10:37 AM EST 05/12/2025 @ 10:37 AM EST Nutrition Follow Up Note Reason for RD Intervention: Assessment Type: Follow-up Reason for Assessment: High MST Score Anthropometrics: Height: 165.1 cm (65 ) Weight: 47.6 kg (105 lb) Weight Method: Stated Frame Size: Small BMI (Calculated): 17.5 BMI Class: Underweight IBW (lbs): 125 UBW (lbs): 120 Recent Weight Change: Yes (ongoing weight loss, time frame unclear) Current Diet and Supplements: Dietary Orders (From admission, onward) Start Ordered 05/07/25 1036 Adult diet [facility]; General, Cardiac; Regular; Sodium 2 gm Restriction (Order Panel) Diet effective now Question Answer Comment Location [facility] Diet Type (req) General Diet Type (req) Cardiac General Diet Regular Diet Type (cardiac) Sodium 2 gm Restriction 05/07/25 1035 05/07/25 1035 Dietary nutrition supplements Two times daily (BID); [facility]; Standard Oral Supplement Continuous Comments: Chocolate, breakfast and dinner Question Answer Comment Frequency Two times daily (BID) Location [facility] Supplements Standard Oral Supplement 05/07/25 1035 History of presenting illness: Patient is a 84 y.o. female with a history of Medical History[1] Surgical History[2] admitted 05/01/2025 with Periprosthetic fracture around prosthetic joint, initial encounter. Food/Nutrition History: Previous Diet / Nutrition Education / Counseling: Pt report she eats what she wants at home, deniesfood allergies, denies food insecurities. Pt states she gets Meals on Wheels, prepares other meals for herself. Pt reports weight loss over time, not intentional, but gradual. Appetite DATA ANALYTICS DEVELOPER: Good Intake DATA ANALYTICS DEVELOPER: Stable Vitamins/Minerals/Herbs: Pt reports she takes a multivitamin at home Social Influencers of Health & Nutrition - Hunger Vital Signs: Within the past 12 months we worried whether our food would run out before we got money to buy more: Never true Within the past 12 months the food we bought just didn't last and we didn't have money to get more: Never true Who obtained answers? Hunger vital signs completed by other discipline. Assistance: No assistance needed at this time Weight History: Wt Readings from Last 10 Encounters: 05/04/25 47.6 kg (105 lb) 04/09/25 (!) 40.8 kg (90 lb) 04/01/25 (!) 40.8 kg (90 lb) 03/13/25 (!) 40.8 kg (90 lb) 03/06/25 (!) 41.9 kg (92 lb 6.4 oz) 02/11/25 (!) 41.9 kg (92 lb 6.4 oz) 11/24/24 (!) 41.1 kg (90 lb 9.6 oz) 09/16/24 (!) 41.9 kg (92 lb 6.4 oz) 09/04/24 (!) 41.1 kg (90 lb 9.6 oz) 08/24/24 49.9 kg (110 lb) Subjective Assessment: Patient consuming 75-100% meals and all Ensure supplements, Snacks noted at bedside. Patient reports good appetite. Most recent bedscale weight 105 lbs. Pressure injury to coccyx noted to be improving. Nutrition-Related Lab Values: Results from last 7 days Lab Units 05/12/25 0545 SODIUM mmol/L 142 POTASSIUM mmol/L 4.5 CHLORIDE mmol/L 103 CO2 mmol/L 33* BUN mg/dL 24 CREATININE mg/dL 0.62 EGFR mL/min/1.73m2 89 CALCIUM mg/dL 8.8 GLUCOSE mg/dL 88 WBC AUTO K/mcL 8.1 Medications: MEDSSCHEDULED[3] CONTINUOUS: MEDSCONTINUOUS[4] MEDSPRN[5] Energy Needs: kcal, gm protein, mL fluid per day. Total Energy Estimated Needs: Based on stated weight 46 k - 1840 (35 - 40kcal/kg), 46 - 55g protein/day (1 - 1.2g/kg), 1ml/kcal fluid Height: 165.1 cm (65 ) Temp: 36.8 ??C (98.2 ??F) Food/Nutrition-Current Status: Intake Type: P.O. Current Diet Status: Appropriate Appetite: Good Intake Amount (%): 75-100% Intake Assessment: Adequate Main IVF: None Main IVF Rate (mL/hr): 100 Nutrition Focused Physical Findings: Overall Appearance: Patiet sitting up in bed, moderate to severe muscle and fat depletion. Nerves and Cognition: Alert, Oriented Skin: wound incision to right thigh, pressure wound to coccyx, not staged, noted to be healed per Epic documentation Loss of Fat Location: Orbital, Buccal, Triceps Loss of Fat Amt-Orbital: Severe Loss of Fat Amt-Buccal: Moderate Loss of Fat Amt-Triceps: Severe Loss of Muscle Location: Temples, Clavicle, Shoulders, Interosseous Loss of Muscle Amt-Temples: Moderate Loss of Muscle Amt-Clavicle: Severe Loss of Muscle Amt-Shoulders: Moderate Loss of Muscle Amt-Inter Musc: Severe Nutrition Diagnosis: Code Type: Severe-Chronic (E43) Severe-Chronic Criteria: Severe Body Fat Depletion, Severe Muscle Mass Depletion Status: Other (Comment) (ongoing) Diagnosis: Malnutrition Etiology: Physiologic causes Symptoms: Pt with moderate and severe muscle and fat losses to multilple regions per nutrition focused physical exam, ongoing weight loss per pt. Nutrition Interventions: Medical Food Supplement Medical Food Supplement(s): Ensure Plus BID chocolate, continue Diet Order: Low Sodium Collaboration and Referral of Nutrition Care: Collaborate with Other Providers Nutrition Education Education Materials Reviewed: Follow for need. Goals: Patient will consume greater than or equal to 75% meals., Patient will consume ONS., Maintain weight., Stooling appropriately., and Maintain skin integrity. Coordination of Patient Care: Care plan discussed with patient/family. Monitoring/Evaluation: Food Intake, Medical Food Supp/Oral Nutrition Supp, Weight, Renal/Electrolyte Profile Follow Up: Nutrition Priority Level: Moderate Nutritional Discharge Recommendations: RD remains available and will continue to follow. Signature: Saritha Calixto RD [1] Past Medical History: Diagnosis Date Atrial fibrillation ([facility] V24, [facility] V28) 01/17/2021 DX:Atrial fibrillation ([facility]) CHF (congestive heart failure) ([facility] V24, [facility] V28) 01/17/2021 DX:CHF (congestive heart failure) ([facility]) Clostridium difficile diarrhea 03/26/2024 DX:Clostridium difficile diarrhea Depression 01/17/2021 DX:Depression Hypertension NSTEMI (non-ST elevated myocardial infarction) ([facility] V24, [facility] V28) 01/17/2021 DX:NSTEMI (non-ST elevated myocardial infarction) ([facility]); COMMENT: 12/2020 Dr Eller, holter monitor and cardiac cath as outpt. NSTEMI (non-ST elevated myocardial infarction) ([facility] V24, [facility] V28) 01/17/202112/2020 Dr Eller, holter monitor and cardiac cath as outpt. Pubic ramus fracture ([facility] V24, [facility] V28) 11/30/2021 DX:Pubic ramus fracture ([facility]) Takotsubo cardiomyopathy 01/17/2021 DX:Takotsubo cardiomyopathy [2] Past Surgical History: Procedure Laterality Date JOINT REPLACEMENT OTHER SURGICAL HISTORY PROCEDURE: HISTORICAL MITRAL VALVE REPL OTHER SURGICAL HISTORY PROCEDURE: HISTORY OTHER; COMMENT: right humerus fracture TONSILLECTOMY PROCEDURE: HISTORICAL TONSILLECTOMY [3] atorvastatin, 20 mg, oral, Nightly cholecalciferol, 50,000 Units, oral, Weekly cholestyramine, 4 g, oral, BID with meals dorzolamide, 1 drop, Both Eyes, BID enoxaparin, 40 mg, subcutaneous, Daily latanoprost, 1 drop, Both Eyes, Nightly metoprolol succinate, 25 mg, oral, Daily PARoxetine, 20 mg, oral, q AM polyetheylene glycol, 17 g, oral, Nightly sodium chloride, 10 mL, intravenous, BID [4] [5] PRN medications: acetaminophen, HYDROmorphone, naloxone, ondansetron, oxyCODONE, oxyCODONE, Insert peripheral IV AND Maintain IV access AND Saline lock IV AND sodium chloride AND sodium chloride, sodium chloride, sodium chloride, sodium chloride * Herlinda Villagran, PT - 05/12/2025 8:25 AM EST [facility] Physical Therapy Treatment PT Discharge Recommendations: assisted facility placement Staff Recommendations for safe patient handling: bed mobility: min assist; sit- stand transfers, gait: cga; toilet transfers: min assist Precautions Medical Precautions: Fall Risk, Limb restriction Safety Interventions: Call cabrera within reach, ID band on, Chair alarm RUE Weight Bearing Status: Full LUE Weight Bearing Status: Full RLE Weight Bearing Status: As Tolerated LLE Weight Bearing Status: Full Orthopedic Precautions: (avoid excessive ROM knee) Orthoses Applied: (metal hinged knee brace) Prosthesis/Orthosis Used: KAFO, Right History of Present Illness: Patient is a 84 y.o. female admitted to [facility] on 05/01/2025 with: Problem List[1] Modified Sanjana Scale: 3=Moderate disability. Requires some help, but able to walk unassisted. Fall prevention education provided including use of call light in hospital, use of appropriate assistive device, safe mobility techniques, and safety measures at home. Continue PT as per POC. Subjective I like to walk Objective 05/12/25 0825 PT Last Visit PT Received On 05/12/25 General Family/Caregiver Present No PT Time Calculation PT Start Time 0825 PT Stop Time 0904 PT Time Calculation (min) 39 min Precautions Medical Precautions Fall Risk;Limb restriction Safety Interventions Call cabrera within reach;ID band on;Chair alarm RUE Weight Bearing Status Full LUE Weight Bearing Status Full RLE Weight Bearing Status As Tolerated LLE Weight Bearing Status Full Orthopedic Precautions (avoid excessive ROM knee) Orthoses Applied (metal hinged knee brace) Prosthesis/Orthosis Used KAFO;Right Oxygen Therapy Oxygen Therapy None (Room air) O2 Delivery Method Nasal cannula Pain Assessment Pain Assessment 0-10 Pain Score 5 - Moderate pain Pain Type Surgical pain Pain Location Leg Pain Orientation Right Pain Radiating Towards knee Pain Frequency Intermittent Cognition Overall Cognitive Status WFL Orientation Level Oriented X4 Following Commands Follows all commands and directions without difficulty Safety Judgment Good awareness of safety precautions Activity Tolerance Endurance Tolerates 30 min exercise with multiple rests Static Sitting Balance Static Sitting-Level of Assistance Independent Dynamic Sitting Balance Dynamic Sitting-Level of Assistance Close supervision Dynamic Sitting-Balance Support Right upper extremity supported;Left upper extremity supported Static Standing Balance Static Standing-Level of Assistance Standby assistance Static Standing-Balance Support Right upper extremity supported;Left upper extremity supported Dynamic Standing Balance Dynamic Standing-Level of Assistance Standby assistance Dynamic Standing-Balance Ambulation Dynamic Standing-Balance Support Right upper extremity supported;Left upper extremity supported Bed Mobility Sitting to Lying Assistance Standby assistance Lying to Sitting Assistance Supervision Transfers Sit to Stand Assistance Contact guard Chair/Bed to Chair/Bed Transfer Assistance Contact guard Bed to/from Chair Transfer Technique Stand pivot Toilet Transfer Assistance Minimum assistance Toilet Transfer Technique Ambulating Transfer Comments transfer on/off sofa: mod assist for lift off and graded control sitting Ambulation Walking Assistance Standby assistance Device Rolling walker Distance Ambulated (ft) 50 Comments vcs for foot placement for more symmetrical gait pattern Stairs Stairs Assistance Moderate assistance Stair Management Technique/Device One rail L;Step to pattern;Forwards;Backwards Number of Stairs 1 Curb 1 step (curb): Assistance Moderate assistance RUE Assessment RUE Assessment Within Functional Limits LUE Assessment LUE Assessment Within Functional Limits RLE Assessment RLE Assessment Impaired RLE Assessment Comments s/p femoral fx, orif, kafo, wbat LLE Assessment LLE Assessment Within Functional Limits Procedures Procedures Gait Training Gait Training Gait Training Time Entry 24 Gait Training Activity 1 pt in bed at outset, moved supine-sitting unassisted, and sit to stand at rwalker cga, vcs for hand placement; She ambulated to bathroom (10 ft) , wbat on r with brace on , sba, and performed toilet transfer with min assist to mange rwalker lower with control and lift off Gait Training Activity 2 She ambulated out of room and into hallway, vcs for more symmetrical step length, upright trunk, sba x 60 ft. She sat down on sofa, mod assist for graded control sitting and for liftoff. she stepped up/down 1 step with 2 hands on l rail, mod assist given for trunk support weight shfit, and lift up onto step . She stepped down backwards, and continued to walk down luna, with noted muscle fatigue, and decreased contralateral step length. pt got back into bed, min assist to lift RLE onto bed. Therapeutic Exercise Therapeutic Exercise Time Entry 15 Therapeutic Exercise Activity 1 supine: aps, hip abd/add, isometric qs, gs x 10 reps each PT Assessment PT Assessment Results Decreased strength;Decreased range of motion;Decreased endurance;Impaired balance;Impaired gait;Decreased mobility;Decreased skin integrity;Orthopedic restrictions;Pain Prognosis Good Evaluation/Treatment Tolerance Patient tolerated treatment well Medical Staff Made Aware Yes Procedure/Treatment: Procedures Procedures: Gait Training Gait Training Gait Training Time Entry: 24 Gait Training Activity 1: pt in bed at outset, moved supine-sitting unassisted, and sit to stand [facility], vcs for hand placement; She ambulated to bathroom (10 ft) , wbat on r with brace on , sba, and performed toilet transfer with min assist to mange rwalker lower with control and lift off Gait Training Activity 2: She ambulated out of room and into hallway, vcs for more symmetrical steplength, upright trunk, sba x 60 ft. She sat down on sofa, mod assist for graded control sitting andfor liftoff. she stepped up/down 1 step with 2 hands on l rail, mod assist given for trunk support weight shfit, and lift up onto step . She stepped down backwards, and continued to walk down luna, with noted muscle fatigue, and decreased contralateral step length. pt got back into bed, min assist to lift RLE onto bed. Gait Training Activity 3: pt performed SPT to bed side chair, vcs to back up with rwalker, off loadrle, reach back and sit , with min assist for graded control of descent. Gait Training Activity 4: pt performed arom laq's, leg extended ap's x 10 reps to restore rom,strength and improve stength length, stabilty in gait Gait Training Activity 5: rle positioned extended on stool, sitting , reporting relief of pressure like pain in thigh during short sitting Therapeutic Exercise Therapeutic Exercise Time Entry: 15 Therapeutic Exercise Activity 1: supine: aps, hip abd/add, isometric qs, gs x 10 reps each Patient left lying supine in bed. RN notified of pt. status, location, response to treatment, and therapy recommendations. Physical Therapy Assessment/Plan PT Assessment PT Assessment Results: Decreased strength, Decreased range of motion, Decreased endurance, Impairedbalance, Impaired gait, Decreased mobility, Decreased skin integrity, Orthopedic restrictions, Pain Prognosis: Good Evaluation/Treatment Tolerance: Patient tolerated treatment well Medical Staff Made Aware: Yes Plan Treatment/Interventions: Functional transfer training, LE strengthening/ROM, Endurance training, Bed mobility, Gait training PT Plan: Skilled PT PT Frequency: 2-5 days per week PT Duration of Sessions: 15-30 min per session PT Treatments per day: 1 time per day PT Discharge Recommendations: assisted facility placement Equipment Recommended: Walker - rolling PT - Evaluation Status: Complete Physical Therapy Goals/Education Encounter Problems Encounter Problems (Active) Template: Physical Therapy Problem: PT Short Term Goals Dates: Start: 05/06/25 Goal: Patient will ambulate with rwalker, hingeknee brace, wbat, stand by assist (Resolved) Dates: Start: 05/06/25 Expected End: 05/12/25 Resolved: 05/07/25 Outcomes Date/Time User Outcome 05/07/25 1652 Kamilla Bermudez PT Completed Goal: Patient will ambulate with rwalker, hinge knee brace, wbat, x 50 ft, stand by assist Dates: Start: 05/06/25 Expected End: 05/13/25 Outcomes Date/Time User Outcome 05/08/25 1319 Herlinda Villagran PT Progressing Goal: Patient will be able to safely negotiate 5 stairs with 1 rail, min assist Dates: Start: 05/06/25 Expected End: 05/13/25 Outcomes Date/Time User Outcome 05/08/25 1319 Herlinda Villagran PT Not Progressing Encounter Problems (Resolved) There are no resolved problems. Education Documentation Precautions, taught by Herlinda Villagran PT at 05/12/2025 11:27 AM. Learner: Patient Readiness: Acceptance Method: Explanation Response: Verbalizes Understanding Comment: educated in correct 2 ft per step pattern on stairs ADL Training, taught by Herlinda Villagran PT at 05/12/2025 11:27 AM. Learner: Patient Readiness: Acceptance Method: Explanation Response: Verbalizes Understanding Comment: educated in correct 2 ft per step pattern on stairs Home Exercise Program, taught by Herlinda Villagran PT at 05/12/2025 11:27 AM. Learner: Patient Readiness: Acceptance Method: Explanation Response: Verbalizes Understanding Comment: educated in correct 2 ft per step pattern on stairs Mobility Training, taught by Herlinda Villagran PT at 05/12/2025 11:27 AM. Learner: Patient Readiness: Acceptance Method: Explanation Response: Verbalizes Understanding Comment: educated in correct 2 ft per step pattern on stairs Education Comments No comments found. Herlinda Villagran PT [1] Patient Active Problem List Diagnosis Atrial fibrillation ([facility] V24, [facility] V28) CHF (congestive heart failure) ([facility] V24, [facility] V28) Collagenous colitis Depression HTN (hypertension) Mitral valve regurgitation Takotsubo cardiomyopathy C. 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 S/P right hip fracture Closed displaced subtrochanteric fracture of right femur ([facility] V24, [facility] V28) Bleeding from right hip wound Atrial fibrillation with rapid ventricular response ([facility] V24, [facility] V28) Moderate malnutrition ([facility] V24) Periprosthetic fracture around prosthetic joint, initial encounter Other closed fracture of distal end of right femur, initial encounter ([facility] V24, [facility] V28) Sharron-prosthetic fracture of femur at tip of prosthesis * Jenise Carmona RN - 05/12/2025 3:17 AM EST Goals: Problem: Sensory: Acute Pain Goal: Pain level will improve or be tolerable Outcome: Progressing Identify possible barriers to meeting goals/advancing plan of care: await symptoms to improve snf placement Stability of the patient: Moderately Stable - Low risk of patient condition declining or worsening End of Shift Summary: vss afebrile pain well controlled. Small amt dng upper incision. Abd to reinforce. Voiding well brp * Anushka Hou RN - 05/11/2025 2:42 PM EST JEFF pending ortho clearance Barrier- ORIF on 05/05, monitoring high amt drainage from post-op site Plan return to [facility] * Amanda Woods MD - 05/11/2025 12:35 PM EST Images from the original note were not included. IMAN PROGRESS NOTE Date: 05/11/2025 Author: Amanda Woods MD Patient ID: Isabella Díaz is a 84 y.o. female : 1940 MR#: [id number] 05/01/2025 SUBJECTIVE Patient seen and examined today. Feeling fine. No overnight events. Seen by Ortho and dressing changed today. Hemoglobin stable. Per Ortho dressings were relatively clean today so it seems drainage is slowing down. Scheduled Medications PRN Medications IV Medications atorvastatin, 20 mg, Nightly cholecalciferol, 50,000 Units, Weekly cholestyramine, 4 g, BID with meals dorzolamide, 1 drop, BID enoxaparin, 40 mg, Daily latanoprost, 1 drop, Nightly metoprolol succinate, 25 mg, Daily PARoxetine, 20 mg, q AM polyetheylene glycol, 17 g, Nightly sodium chloride, 10 mL, BID acetaminophen, 650 mg, q6h PRN HYDROmorphone, 0.5 mg, q3h PRN naloxone, 0.04 mg, PRN ondansetron, 4 mg, q6h PRN oxyCODONE, 2.5 mg, q4h PRN oxyCODONE, 5 mg, q4h PRN sodium chloride, 10 mL, PRN sodium chloride, 42 mL/hr, PRN sodium chloride, 42 mL/hr, PRN sodium chloride, 42 mL/hr, PRN OBJECTIVE Vitals: 05/10/25 1431 05/10/25 1922 05/11/25 0308 05/11/25 0732 BP: 116/70 124/84 136/85 (!) 128/96 BP Location: Left arm Left arm Patient Position: Lying Pulse: 90 78 91 90 Resp: Temp: 36.8 ??C (98.2 ??F) 36.7 ??C (98.1 ??F) 36.7 ??C (98.1 ??F) 36.8 ??C (98.2 ??F) TempSrc: Oral Temporal SpO2: 97% 94% 97% 99% Weight: Height: Intake/Output Summary (Last 24 hours) at 05/11/2025 1235 Last data filed at 05/11/2025 0600 Gross per 24 hour Intake 1340 ml Output -- Net 1340 ml Wt Readings from Last 1 Encounters: 05/04/25 1729 47.6 kg (105 lb) 05/01/25 1438 46.7 kg (103 lb) PHYSICAL EXAM: Gen: Alert oriented x 3, NAD CV -RRR no MGR Lungs -CTAB Abd - Soft, non-tender, non-distended Extremities -right knee immobilizer placed. Right hip wound dressing present neuro - AO x3 RESULTS: CBC BMP Results from last 7 days Lab Units 05/11/25 0616 05/10/25 0601 05/09/25 0651 05/08/25 0701 WBC AUTO K/mcL 7.8 8.3 7.8 8.6 HEMOGLOBIN g/dL 9.7* 9.5* 8.2* 8.7* HEMATOCRIT % 30.6* 29.3* 26.3* 26.5* PLATELETS K/mcL 366 327 305 296 LYMPHS PCT AUTO % 14.1 16.1 14.1 13.3 MONO PCT AUTO % 15.5 17.2 13.3 13.3 EOS PCT AUTO % 3.8 4.5 4.0 2.9 Results from last 7 days Lab Units 05/10/25 0601 05/08/25 0701 05/07/25 0634 05/06/25 0622 SODIUM mmol/L 140 140 139 139 POTASSIUM mmol/L 4.4 4.3 3.7 4.6 CHLORIDE mmol/L 104 105 104 103 CO2 mmol/L 34* 30 30 29 ANION GAP 2* 5 5 7 BUN mg/dL 27* 26* 22 23 CREATININE mg/dL 0.68 0.56 0.71 0.80 CALCIUM mg/dL 8.6 8.1* 8.4* 8.7 Results from last 7 days Lab Units 05/10/25 0601 05/09/25 0756 05/08/25 0701 05/07/25 0634 05/06/25 0622 POCT GLUCOSE mg/dL -- 88 -- -- -- GLUCOSE mg/dL 96 -- 95 106* 142* No lab exists for component: TBIL , BILID No results found for this or any previous visit (from the past week). Imaging: XR Femur 2+ Views Right Narrative: HISTORY: The patient is an 84-year-old female with a fracture of the distal right femur. FINDINGS: 8 fluoroscopic spot radiographs of the right femur obtained in the operating room are submitted. The study documents placement of an internal fixation plate and screws transfixing the fracture of the distal femur initially seen on preoperative radiographs performed 05/01/2025. The surgicalhardware appears well-positioned and intact. Near-anatomic alignment has been restored to the fracture site. 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 Impression: Satisfactory appearance following internal fusion of a fracture of the distal right femur. Pre-existing surgical hardware is also again noted. The dose-area product for this procedure was 1655.5 mGy*cm2. PQRI CPT II G9500 -------- FINAL REPORT -------- Dictated By: Casimiro Ryan Dictated Date: 05/06/2025 07:45 ET Assigned Physician: Casimiro Ryan Reviewed and Electronically Signed By: Casimiro Ryan Signed Date: 05/06/2025 07:48 ET Workstation ID: [id number] Transcribed By: Self Edit Transcribed Date: 05/06/2025 07:45 ET ASSESSMENT & PLAN 84-year-old female with PMH of A-fib on Eliquis, HTN, COPD, CHF/Takotsubo cardiomyopathy among others who presented with right leg pain. Patient recently suffered right hip femur fracture and was treated with total hip replacement. Postoperatively she had seroma/hematoma which required I&D which was not infected. Subsequently she was at the rehab but while undergoing PT developed severe pain and was found to have periprosthetic fracture of the right femur in the area of distal screw hole ofthe plate. Therefore patient was brought to the hospital and orthopedic surgical team was consulted. Patient with a right distal femur fracture Status post removal of previous hardware with ORIF of right distal femur with intramedullary and lateral locked plating Patient seen by Ortho She is postop day 6 today. Her dressing was changed today and per Ortho dressings are relatively clean so it seems as if drainage is slowing down. To continue with dressing changes by Ortho daily for now. Continue with weightbearing as tolerated on affected extremity with walker protection PT OT recommending rehab Pain control Acute blood loss anemia postop with underlying chronic anemia status post 3 units of blood transfusions. Hemoglobin remained stable for now. Will continue to monitor Chronic A-fib with secondary hypercoagulable state Eliquis on hold at this time. Patient on Lovenox. On discharge patient to be on aspirin 81 mg twice daily until follow-up with Ortho and once wound stabilize and Ortho clears to transition back to Eliquis. History of Takotsubo's cardiomyopathy with chronic systolic heart failure Ejection fraction 40 to 45% Currently holding metoprolol for low blood pressure Depression anxiety on paroxetine Dyslipidemia on statin Glaucoma on eyedrops DVT Prophylaxis Lovenox Full Code - Confirmed Disposition likely rehab once drainage from the dressing improved * Carolina Gold, PT - 05/11/2025 11:45 AM EST [facility] Physical Therapy Treatment PT Discharge Recommendations: assisted facility placement Staff Recommendations for safe patient handling: CG with walker for transfers and ambulation Precautions Medical Precautions: Fall Risk, Limb restriction Safety Interventions: Call cabrera within reach, ID band on, Chair alarm RUE Weight Bearing Status: Full LUE Weight Bearing Status: Full RLE Weight Bearing Status: As Tolerated LLE Weight Bearing Status: Full Orthopedic Precautions: (avoid excessive ROM knee) Orthoses Applied: (metal hinged knee brace) Prosthesis/Orthosis Used: KAFO, Right History of Present Illness: Patient is a 84 y.o. female admitted to [facility] on 05/01/2025 with: Problem List[1] Fall prevention education provided including use of call light in hospital, use of appropriate assistive device, safe mobility techniques, and safety measures at home. Continue PT as per POC. Subjective I need to lay down, I get sore if I sit too long Objective 05/11/25 1145 PT Last Visit PT Received On 05/11/25 General Family/Caregiver Present No PT Time Calculation PT Start Time 1145 PT Stop Time 1215 PT Time Calculation (min) 30 min Precautions Medical Precautions Fall Risk;Limb restriction Safety Interventions Call cabrera within reach;ID band on;Chair alarm RUE Weight Bearing Status Full RLE Weight Bearing Status As Tolerated LLE Weight Bearing Status Full Orthopedic Precautions (avoid excessive ROM knee) Orthoses Applied (metal hinged knee brace) Vital Signs Patient Identification Yes Pain Assessment Pain Assessment No/denies pain Pain Score 0 - No pain Cognition Orientation Level Oriented X4 Bed Mobility Lying to Sitting Assistance Supervision (she was able to get the R leg in and out of bed with the brace) Transfers Sit to Stand Assistance Contact guard Chair/Bed to Chair/Bed Transfer Assistance Contact guard Ambulation Walking Assistance Contact guard Device Rolling walker Distance Ambulated (ft) 75 Procedures Procedures Gait Training;Therapeutic Exercise Gait Training Gait Training Time Entry 15 Gait Training Activity 1 The pt was able to complete bed mobility with S . Sit to stand transfers with CG and cues for hand placement. She was able to ambulate 75' with walker and CG with 1 standing rest break. She demonstrated a step through gait pattern with improved weight bearing on the R Therapeutic Exercise Therapeutic Exercise Time Entry 15 Therapeutic Exercise Activity 1 Pt educated on seated LAQ x 10 B LE , pt then placed in supine and performed heel slides, SAQ, quad sets and ankle pumps all 10 reps PT Assessment PT Assessment Results Decreased strength;Decreased endurance Prognosis Good Medical Staff Made Aware Yes Plan Treatment/Interventions Functional transfer training;LE strengthening/ROM;Endurance training;Bed mobility;Gait training PT Plan Skilled PT PT Frequency 2-5 days per week PT Discharge Recommendations assisted facility placement PT - Evaluation Status Complete Procedure/Treatment: Procedures Procedures: Gait Training, Therapeutic Exercise Gait Training Gait Training Time Entry: 15 Gait Training Activity 1: The pt was able to complete bed mobility with S . Sit to stand transfers with CG and cues for hand placement. She was able to ambulate 75' with walker and CG with 1 standingrest break. She demonstrated a step through gait pattern with improved weight bearing on the R Therapeutic Exercise Therapeutic Exercise Time Entry: 15 Therapeutic Exercise Activity 1: Pt educated on seated LAQ x 10 B LE , pt then placed in supine andperformed heel slides, SAQ, quad sets and ankle pumps all 10 reps Patient left lying supine in bed. RN notified of pt. status, location, response to treatment, and therapy recommendations. Physical Therapy Assessment/Plan PT Assessment PT Assessment Results: Decreased strength, Decreased endurance Prognosis: Good Evaluation/Treatment Tolerance: Patient tolerated treatment well Medical Staff Made Aware: Yes Plan Treatment/Interventions: Functional transfer training, LE strengthening/ROM, Endurance training, Bed mobility, Gait training PT Plan: Skilled PT PT Frequency: 2-5 days per week PT Duration of Sessions: 15-30 min per session PT Treatments per day: 1 time per day PT Discharge Recommendations: assisted facility placement Equipment Recommended: Walker - rolling PT - Evaluation Status: Complete Physical Therapy Goals/Education Encounter Problems Encounter Problems (Active) Template: Physical Therapy Problem: PT Short Term Goals Dates: Start: 05/06/25 Goal: Patient will ambulate with rwalker, hingeknee brace, wbat, stand by assist (Resolved) Dates: Start: 05/06/25 Expected End: 05/12/25 Resolved: 05/07/25 Outcomes Date/Time User Outcome 05/07/25 1652 Kmailla Bermudez PT Completed Goal: Patient will ambulate with rwalker, hinge knee brace, wbat, x 50 ft, stand by assist Dates: Start: 05/06/25 Expected End: 05/13/25 Outcomes Date/Time User Outcome 05/08/25 1319 Herlinda Villagran PT Progressing Goal: Patient will be able to safely negotiate 5 stairs with 1 rail, min assist Dates: Start: 05/06/25 Expected End: 05/13/25 Outcomes Date/Time User Outcome 05/08/25 1319 Herlinda Villagran PT Not Progressing Encounter Problems (Resolved) There are no resolved problems. Education Documentation Precautions, taught by Carolina Gold PT at 05/11/2025 4:50 PM. Learner: Patient Readiness: Eager Method: Explanation, Demonstration Response: Verbalizes Understanding, Demonstrated Understanding Comment: Pt educated on seated and supine exercises and demonstrates a good understanding ADL Training, taught by Carolina Gold PT at 05/11/2025 4:50 PM. Learner: Patient Readiness: Eager Method: Explanation, Demonstration Response: Verbalizes Understanding, Demonstrated Understanding Comment: Pt educated on seated and supine exercises and demonstrates a good understanding Home Exercise Program, taught by Carolina Gold PT at 05/11/2025 4:50 PM. Learner: Patient Readiness: Eager Method: Explanation, Demonstration Response: Verbalizes Understanding, Demonstrated Understanding Comment: Pt educated on seated and supine exercises and demonstrates a good understanding Mobility Training, taught by Carolina Gold PT at 05/11/2025 4:50 PM. Learner: Patient Readiness: Eager Method: Explanation, Demonstration Response: Verbalizes Understanding, Demonstrated Understanding Comment: Pt educated on seated and supine exercises and demonstrates a good understanding Education Comments No comments found. Carolina Gold, PT [1] Patient Active Problem List Diagnosis Atrial fibrillation ([facility] V24, [facility] V28) CHF (congestive heart failure) ([facility] V24, [facility] V28) Collagenous colitis Depression HTN (hypertension) Mitral valve regurgitation Takotsubo cardiomyopathy C. 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 S/P right hip fracture Closed displaced subtrochanteric fracture of right femur ([facility] V24, [facility] V28) Bleeding from right hip wound Atrial fibrillation with rapid ventricular response ([facility] V24, [facility] V28) Moderate malnutrition ([facility] V24) Periprosthetic fracture around prosthetic joint, initial encounter Other closed fracture of distal end of right femur, initial encounter ([facility] V24, [facility] V28) Sharron-prosthetic fracture of femur at tip of prosthesis * Anne Spear OT - 05/11/2025 9:52 AM EST [facility] Occupational Therapy Treatment Note DATE: Sunday May 11, 2025 TIME IN: 0900 TIME OUT: 0930 Pt: Isabella Díaz [id number] DISCHARGE RECS: Inpatient rehab facility placement EQUIPMENT RECS: (TBD) SAFE PT HANDLING REC FOR STAFF: close SBA PRECAUTIONS: Precautions Medical Precautions: Fall Risk, Limb restriction Safety Interventions: Call cabrera within reach, ID band on, Chair alarm RUE Weight Bearing Status: Full LUE Weight Bearing Status: Full RLE Weight Bearing Status: As Tolerated LLE Weight Bearing Status: Full Orthopedic Precautions: (avoid excessive ROM) Orthoses Applied: (hinged knee brace) ASSESSMENT: Pt participated in skilled OT session today. Patient engaged in static standing at the sink in the bathroom to complete oral hygiene. Patient was able to perform lower body dressing with hospital pants and instruction from OT to dress affected leg first. Patient verbalized understandingof education provided and responded appropriately to cues. Patient would continue to benefit from skilled acute care OT to maximize self care independence and safety. Subjective I would love to get my teeth brushed at the sink Objective 05/11/25 0900 OT Last Visit OT Received On 05/11/25 General Family/Caregiver Present No OT Time Calculation OT Start Time 0900 OT Stop Time 0930 OT Time Calculation (min) 30 min Precautions Medical Precautions Fall Risk;Limb restriction Safety Interventions Call cabrera within reach;ID band on;Chair alarm RUE Weight Bearing Status Full RLE Weight Bearing Status As Tolerated LLE Weight Bearing Status Full Orthopedic Precautions (avoid excessive ROM) Orthoses Applied (hinged knee brace) Vital Signs Patient Identification Yes Pain Assessment Pain Assessment No/denies pain Pain Score 0 - No pain ADLs/IADLs Self Care/Home Management (ADLs) Time Entry 20 ADL/ IADL Performed Oral Hygiene;Dressing Oral Hygiene Oral Hygiene Level of Assistance Independent Oral Hygiene Where Assessed Standing sinkside LE Dressing Pants Level of Assistance Modified independent (with cuing from OT to dress affected RLE first and undress last) Functional Transfers Sit to Stand Assistance Standby assistance Stand to Sit Assistance Standby assistance Functional Mobility Walking Assistance Standby assistance Device Rolling walker Static Sitting Balance Static Sitting-Level of Assistance Independent Dynamic Sitting Balance Dynamic Sitting-Level of Assistance Supervision Static Standing Balance Static Standing-Level of Assistance Standby assistance Dynamic Standing Balance Dynamic Standing-Level of Assistance Standby assistance Cognition Orientation Level Oriented X4 Following Commands Follows all commands and directions without difficulty Safety Judgment Good awareness of safety precautions Insight Good insight into deficits OT Assessment OT Assessment Results (Pt is progressing with ADL goals and is tolerating functional mobility including amb with FWW and SBA as well as static standing at the sink for oral hygiene.) Prognosis Good ADDITIONAL COMMENTS: Chart reviewed. RN clears pt for session. Pt agrees to participate and received sitting in chair, chair alarm activated, and tray table and call light within reach. All lines in place. Medical and safety precautions observed appropriately. Patient educated on Role of OT, Transfer Safety, ADL Techniques and Safety , Adaptive Equipment , Discharge Recommendation, Safety with AD, and importance of OOB activity . Fair verbal understanding and return demonstration. Additional education and training recommended. EXIT STATUS: Session ended with patient sitting in chair, chair alarm activated, tray table and call light within reach, and RN made aware. Needs in reach. RN notified. Assessment & Plan EDUCATION Education Documentation No documentation found. Education Comments No comments found. Encounter Problems Encounter Problems (Active) Template: Occupational Therapy Problem: OT Short Term Goals Dates: Start: 05/06/25 Goal: Pt will be able to perform transfers bed to chair using FWW with SBA of OT (Resolved) Dates: Start: 05/06/25 Expected End: 05/13/25 Resolved: 05/11/25 Outcomes Date/Time User Outcome 05/11/25 0951 Anne Spear OT Completed Goal: Pt will be able to perform toileting tasks including clothing management and hygiene with SBAfrom OT Dates: Start: 05/06/25 Expected End: 05/13/25 Outcomes Date/Time User Outcome 05/11/25 0951 Anne Spear OT Progressing Goal: Pt will be able to tolerate standing at sink to perform oral hygiene with SBA from OT (Resolved) Dates: Start: 05/06/25 Expected End: 05/13/25 Resolved: 05/11/25 Outcomes Date/Time User Outcome 05/11/25 0951 Anne Spear OT Completed Encounter Problems (Resolved) There are no resolved problems. Anne Spear OT * BURAK Urbina - 05/11/2025 8:27 AM EST Orthopedic Trauma Progress Note CHIEF COMPLAINT Postop follow up SURGERY ORIF right femur on 05-05-[address] Baeza ASSESSMENT/PLAN Patient is postop day 6 status post ORIF right femur by Dr. Baeza. Patient is stable. Patient has acute on chronic anemia in the setting of being postop and has received multiple transfusions. Patient's dressing has required multiple changes for persistent drainage. The patient has historically haddrainage from her surgical wound. This morning the patient's dressings were relatively clean so it seems as if the drainage is slowing down. - Weightbearing: Continue weightbearing as tolerated on affected extremity with walker protection - Activity: Encourage out of bed with fall risk protocol; continue foot and ankle pumps while resting; do not push right hip past comfort, may flex to 90 degrees while sitting - Therapy: Continue PT/OT - Pain control: Continue current regimen; apply ice to affected area as needed - Dressing/wound care/DME: Dressing should remain clean and dry; nursing may reinforce as needed; ortho team will continue to evaluate daily - Misc: Continue IS; appreciate medical team management of comorbidities - Labs: Continue to trend H/H and transfuse as needed - DVT prophylaxis: Pneumatic compression stockings; per primary team while inpatient, consider Lovenox SQ 40 mg daily; on discharge, PO ASA 81 mg BID for 6 weeks from surgery - Dispo: Anticipate discharge to rehab when medically appropriate, likely later this week SUBJECTIVE Overnight: No overnight events reported. Patient states she is generally doing well. States that the pain is well- controlled. Patient deniesnumbness and paresthesias. OBJECTIVE Vitals: 05/11/25 0732 BP: (!) 128/96 Pulse: 90 Resp: 16 Temp: 36.8 ??C (98.2 ??F) SpO2: 99% General: Alert and cooperative, lying comfortably in bed, in no acute distress HEENT: Normocephalic and atraumatic Pulmonary: No increased work of breathing appreciated and able to speak in full sentences Musculoskeletal: Right lower extremity- hinged knee brace in place, dressing about hip has mild serous staining and was taken down, staple line clean/dry/intact, surrounding tissue was compressed to try and express as much fluid as possible until no fluid was appreciated, wound was redressed, fires EHL/FHL, dorsiflexion/plantarflexion intact, sensation intact distally, appears well-perfused Skin: Generally normal tone, dry, warm Lab Results Component Value Date WBC 7.8 05/11/2025 HGB 9.7 (L) 05/11/2025 HCT 30.6 (L) 05/11/2025 PLT 366 05/11/2025 Lab Results Component Value Date NA 140 05/10/2025 K 4.4 05/10/2025 CL 104 05/10/2025 BUN 27 (H) 05/10/2025 CREATININE 0.68 05/10/2025 GLUCOSE 96 05/10/2025 CALCIUM 8.6 05/10/2025 Lab Results Component Value Date CRP 10.90 (H) 04/09/2025 No results found for: HGBA1C Lab Results Component Value Date PT 13.8 05/04/2025 Patient seen with and above agreed to by Dr. Mojica. Honorio Jean-Baptiste PA-C * Jenise Carmona RN - 05/11/2025 4:21 AM EST Goals: Problem: Sensory: Acute Pain Goal: Pain level will improve or be tolerable Outcome: Progressing Identify possible barriers to meeting goals/advancing plan of care: await symptoms to improve. Snf placement Stability of the patient: Moderately Stable - Low risk of patient condition declining or worsening End of Shift Summary: vss afebrile. Adeq pain control. R upper thigh dsg reinforced dt large amt mostly serous dng from incision. Pt amb to bathroom voiding qs * Kamilla Bermudez, PT - 05/10/2025 3:36 PM EST [facility] Physical Therapy Treatment PT Discharge Recommendations: assisted facility placement Staff Recommendations for safe patient handlin person CGA with wwalker in room Precautions Medical Precautions: Fall Risk, Limb restriction Safety Interventions: Call cabrera within reach, Bed alarm, Side rails up x1 RUE Weight Bearing Status: Full LUE Weight Bearing Status: Full RLE Weight Bearing Status: As Tolerated LLE Weight Bearing Status: Full Orthopedic Precautions: Other (Comment) (avoid excessive ROM) Orthoses Applied: Other (Comment) (hinged knee brace) Prosthesis/Orthosis Used: KAFO, Right History of Present Illness: Patient is a 84 y.o. female admitted to [facility] on 05/01/2025 with: Problem List[1] Fall prevention education provided including use of call light in hospital, use of appropriate assistive device, safe mobility techniques, and safety measures at home. Continue PT as per POC. Subjective Ok I need to get up now Objective 05/10/25 1400 PT Last Visit PT Received On 05/10/25 General Family/Caregiver Present Yes General Comments son came in at end of tx PT Time Calculation PT Start Time 1400 PT Stop Time 1430 PT Time Calculation (min) 30 min Precautions Medical Precautions Fall Risk;Limb restriction Safety Interventions Call cabrera within reach;Bed alarm;Side rails up x1 RUE Weight Bearing Status Full LUE Weight Bearing Status Full RLE Weight Bearing Status As Tolerated LLE Weight Bearing Status Full Orthoses Applied Other (Comment) (hinged knee brace) Prosthesis/Orthosis Used KAFO;Right Vital Signs Patient Identification Yes Oxygen Therapy Oxygen Therapy None (Room air) Pain Assessment Pain Assessment No/denies pain Pain Score 0 - No pain Cognition Overall Cognitive Status WFL Arousal/Alertness Appropriate responses to stimuli Orientation Level Oriented X4 Following Commands Follows all commands and directions without difficulty Safety Judgment Good awareness of safety precautions Awareness of Errors Good awareness of errors made Deficits Fully aware of deficits Activity Tolerance Endurance Tolerates 20 - 30 min activity with multiple rests Static Sitting Balance Static Sitting-Level of Assistance Supervision Dynamic Standing Balance Dynamic Standing-Level of Assistance Standby assistance Bed Mobility Rolling Right Assistance Contact guard;Standby assistance Lying to Sitting Assistance Contact guard Transfers Sit to Stand Assistance Contact guard Chair/Bed to Chair/Bed Transfer Assistance Standby assistance Bed to/from Chair Transfer Technique Ambulating Toilet Transfer Assistance Standby assistance Ambulation Walking Assistance Contact guard;Minimum assistance Device Rolling walker Distance Ambulated (ft) 80 (and 40) Comments pt did fairly well amb just neeeded a little help with turning and assist for stability RUE Assessment RUE Assessment Within Functional Limits LUE Assessment LUE Assessment Within Functional Limits RLE Assessment RLE Assessment Impaired RLE Assessment Comments 3-/5 LLE Assessment LLE Assessment Within Functional Limits Procedures Procedures Gait Training;Therapeutic Activity Gait Training Gait Training Time Entry 15 Therapeutic Activity Therapeutic Activity Time Entry 15 PT Assessment PT Assessment Results Decreased strength;Decreased endurance;Decreased range of motion;Impaired balance;Impaired gait;Decreased mobility Prognosis Good Evaluation/Treatment Tolerance Patient tolerated treatment well Medical Staff Made Aware Yes Plan Treatment/Interventions Functional transfer training;LE strengthening/ROM;Bed mobility;Gait training PT Plan Skilled PT PT Frequency 5 days per week PT Duration of Sessions 15-30 min per session PT Treatments per day 1 time per day PT Discharge Recommendations assisted facility placement Procedure/Treatment: Procedures Procedures: Gait Training, Therapeutic Activity Gait Training Gait Training Time Entry: 15 Therapeutic Activity Therapeutic Activity Time Entry: 15 Patient left sitting up in chair. RN notified of pt. status, location, response to treatment, and therapy recommendations. Physical Therapy Assessment/Plan PT Assessment PT Assessment Results: Decreased strength, Decreased endurance, Decreased range of motion, Impairedbalance, Impaired gait, Decreased mobility Prognosis: Good Evaluation/Treatment Tolerance: Patient tolerated treatment well Medical Staff Made Aware: Yes Plan Treatment/Interventions: Functional transfer training, LE strengthening/ROM, Bed mobility, Gait training PT Plan: Skilled PT PT Frequency: 5 days per week PT Duration of Sessions: 15-30 min per session PT Treatments per day: 1 time per day PT Discharge Recommendations: assisted facility placement Equipment Recommended: Walker - rolling PT - Evaluation Status: Complete Physical Therapy Goals/Education Encounter Problems Encounter Problems (Active) Template: Physical Therapy Problem: PT Short Term Goals Dates: Start: 05/06/25 Goal: Patient will ambulate with rwalker, hingeknee brace, wbat, stand by assist (Resolved) Dates: Start: 05/06/25 Expected End: 05/12/25 Resolved: 05/07/25 Outcomes Date/Time User Outcome 05/07/25 1652 Kamilla Bermudez, PT Completed Goal: Patient will ambulate with rwalker, hinge knee brace, wbat, x 50 ft, stand by assist Dates: Start: 05/06/25 Expected End: 05/13/25 Outcomes Date/Time User Outcome 05/08/25 1319 Herlinda Villagran PT Progressing Goal: Patient will be able to safely negotiate 5 stairs with 1 rail, min assist Dates: Start: 05/06/25 Expected End: 05/13/25 Outcomes Date/Time User Outcome 05/08/25 1319 Herlinda Villagran PT Not Progressing Encounter Problems (Resolved) There are no resolved problems. Education Documentation No documentation found. Education Comments No comments found. Kamilla Bermudez, PT [1] Patient Active Problem List Diagnosis Atrial fibrillation ([facility] V24, [facility] V28) CHF (congestive heart failure) (CMS/HCC V24, CMS/HCC V28) Collagenous colitis Depression HTN (hypertension) Mitral valve regurgitation Takotsubo cardiomyopathy C. 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 S/P right hip fracture Closed displaced subtrochanteric fracture of right femur (CMS/HCC V24, CMS/HCC V28) Bleeding from right hip wound Atrial fibrillation with rapid ventricular response (CMS/HCC V24, CMS/HCC V28) Moderate malnutrition (CMS/HCC V24) Periprosthetic fracture around prosthetic joint, initial encounter Other closed fracture of distal end of right femur, initial encounter (CMS/[facility] V24, CMS/[facility] V28) Sharron-prosthetic fracture of femur at tip of prosthesis * Mecca Barrios MD - 05/10/2025 1:53 PM EST Images from the original note were not included. IMAN PROGRESS NOTE Date: 05/10/2025 Author: Mecca Barrios MD Patient ID: Isabella Díaz is a 84 y.o. female : 1940 MR#: [id number] SUBJECTIVE CC: Follow-up right femoral fracture Hip pain controlled, mild. No dizziness. Appetite good. ROS: No nausea No abdominal pain Denies chest pain No sob OBJECTIVE Vitals: Vitals: 05/10/25 0825 BP: (!) 133/93 Pulse: 91 Resp: 16 Temp: 37 ??C (98.6 ??F) SpO2: 96% Physical Exam: General: Awake and alert. NAD Psych: mood stable. Remains pleasant CVS: S1 S2 Ext: Right knee immobilizer in place. Right hip wound proximally without with pinkish sanguinous soaking. PUL: CTA BL GI: BS present. ND NT LAB RESULTS HEMATOLOGY Lab Results Component Value Date WBC 8.3 05/10/2025 HGB 9.5 (L) 05/10/2025 HCT 29.3 (L) 05/10/2025 MCV 91.6 05/10/2025 PLT 327 05/10/2025 CHEMISTRY Lab Results Component Value Date GLUCOSE 96 05/10/2025 NA 140 05/10/2025 K 4.4 05/10/2025 CO2 34 (H) 05/10/2025 CL 104 05/10/2025 BUN 27 (H) 05/10/2025 CREATININE 0.68 05/10/2025 EGFR 87 05/10/2025 CALCIUM 8.6 05/10/2025 MG 1.9 05/04/2025 PHOS 3.5 05/04/2025 ANIONGAP 2 (L) 05/10/2025 ASSESSMENT & PLAN 84-year-old female with PMH of A-fib on Eliquis, HTN, COPD, CHF/Takotsubo cardiomyopathy among others who presented with right leg pain. Patient recently suffered right hip femur fracture and was treated with total hip replacement. Postoperatively she had seroma/hematoma which required I&D which was not infected. Subsequently she was at the rehab but while undergoing PT developed severe pain and was found to have periprosthetic fracture of the right femur in the area of distal screw hole ofthe plate. Therefore patient was brought to the hospital and orthopedic surgical team was consulted. - Periprosthetic right distal femur fracture. S/p removal of previous hardware, ORIF of Right distal femur with intramedullary and lateral lockedplating. Pain controlled. Continues to have serosanguinous dc at post op wound but improving. S/p 3 PRBCs. At risk of infections. Ortho team recommends to keep holding eliquis until cleared by them. In the hospital to use [id number] mg daily for DVT prophylaxis and on discharge 81mg BID aspirin until f/u with them and once wound stabilized and ortho clears to transition back to eliquis. Pt understands risks and benefits of ble eding/infection and cva. She agrees with current recommendations. - ABLA. With underlying chronic anemia. S/p 3 units of PRBC. -Chronic atrial fibrillation with secondary hypercoagulable state. Eliquis remains on hold as ortho team thinks that pt is a high risk of bleeding and infection. F/u with ortho team and once bleeding no longer a concern, then BID ASA will need to be changed back to pt's chronic Eliquis therapy to reduce risk of stroke. Pt denies prior TIA/CVA. -History of Takotsubo's cardiomyopathy/chronic systolic heart failure. Previous echo on November 2024 with EF 40 to 45%. -HTN. Lisinopril was discontinued during last admission. BP low d/t ABLA. Hold metoprolol for low BP. -Depression and anxiety. On paroxetine. -Dyslipidemia. On statin -Glaucoma. On eyedrops DVT prophylaxis: Lovenox. CODE STATUS: Full code Disposition: Transition to rehab once okay from ortho standpoint. * Jose Elias Terry RN - 05/10/2025 11:38 AM EST Goals: Identify possible barriers to meeting goals/advancing plan of care: Stability of the patient: Moderately Stable - Low risk of patient condition declining or worsening End of Shift Summary: Problem: Sensory: Acute Pain Goal: Pain level will improve or be tolerable Outcome: Progressing * Gris Mojica MD - 05/10/2025 11:26 AM EST Procedure: Removal of previous deep hardware, ORIF right distal femur fracture with intramedullary and lateral locked plating Surgery: 05/05/2025. I saw and evaluated the patient this morning. Clinically she looks much better. I appreciate medicine transfusing her 1 unit of packed red blood cells yesterday. This has helped. She has some irritation from the carmel distally but no obvious signs of infection no erythema beyond the staple irritation. In terms of her wound drainage I have changed her dressing this morning. The drainage has decreased. It is not fully stopped yet but it is much improved compared to what it was on Sunday and yesterday. As such she is making slow but steady progress. We will continue to monitor her. Her H&Hthis morning is 9.5/29.3. Will continue to follow her hemoglobin hematocrit transfuse as necessary.And will also continue to monitor her wound. So far she is making slow but steady progress. * Jenise Carmona RN - 05/10/2025 3:19 AM EST Goals: Problem: Sensory: Acute Pain Goal: Pain level will improve or be tolerable Outcome: Progressing Identify possible barriers to meeting goals/advancing plan of care: await symptoms to improve snf placement Stability of the patient: Moderately Unstable - Medium risk of patient condition declining or worsening End of Shift Summary: vss afebrile. S/p 1 ux prbc's given. Crackles left base. No resp distress. Med for pain w good relief. Reinforced right upper thigh dsg for mod dng * Mecca Barrios MD - 05/09/2025 1:27 PM EST Images from the original note were not included. IMAN PROGRESS NOTE Date: 05/09/2025 Author: Mecca Barrios MD Patient ID: Isabella Díaz is a 84 y.o. female : 1940 MR#: [id number] SUBJECTIVE CC: Follow-up right femoral fracture Pain controlled. Seen in the morning. No sob. Right pain controlled. Appetite good and consuming ensure along with meals. I called and updated pt's son, Jovon about condition, issues and plans of care including ozzing/bleeding issues, transfusions and eliquis/anticoagulation holding/plans. He voiced understanding. ROS: No nausea No abdominal pain Denies chest pain No sob No fevers. OBJECTIVE Vitals: Vitals: 05/09/25 0755 BP: 134/89 Pulse: 94 Resp: 18 Temp: 36.7 ??C (98.1 ??F) SpO2: 100% Physical Exam: General: Awake and alert. NAD psych: mood stable. No anxiety. CVS: S1 S2 Ext: Right knee immobilizer in place. Right hip wound proximally without bleeding. Distally coveredwith dressing and MARIFER/Brace. Proximal part that I could see is soaked with pinkish fluid. PUL: CTA BL GI: BS present. ND NT LAB RESULTS HEMATOLOGY Lab Results Component Value Date WBC 7.8 05/09/2025 HGB 8.2 (L) 05/09/2025 HCT 26.3 (L) 05/09/2025 MCV 93.9 05/09/2025 PLT 305 05/09/2025 CHEMISTRY Lab Results Component Value Date GLUCOSE 88 05/09/2025 NA 140 05/08/2025 K 4.3 05/08/2025 CO2 30 05/08/2025 CL 105 05/08/2025 BUN 26 (H) 05/08/2025 CREATININE 0.56 05/08/2025 EGFR 91 05/08/2025 CALCIUM 8.1 (L) 05/08/2025 MG 1.9 05/04/2025 PHOS 3.5 05/04/2025 ANIONGAP 5 05/08/2025 ASSESSMENT & PLAN 84-year-old female with PMH of A-fib on Eliquis, HTN, COPD, CHF/Takotsubo cardiomyopathy among others who presented with right leg pain. Patient recently suffered right hip femur fracture and was treated with total hip replacement. Postoperatively she had seroma/hematoma which required I&D which was not infected. Subsequently she was at the rehab but while undergoing PT developed severe pain and was found to have periprosthetic fracture of the right femur in the area of distal screw hole ofthe plate. Therefore patient was brought to the hospital and orthopedic surgical team was consulted. - Periprosthetic right distal femur fracture. S/p removal of previous hardware, ORIF of Right distal femur with intramedullary and lateral lockedplating. Pain controlled Continues to have serosanguinous dc at post op wound. Required 2 PRBCs. At risk of infections. Ortho team recommends to keep holding eliquis until cleared by them. In the hospital to use Lovenoxfor DVT prophylaxis and on discharge 81mg BID aspirin until f/u with them and once wound stabilizedand ortho clears to transition back to eliquis. - ABLA. With underlying chronic anemia. S/p 2 units of PRBC. Hg stabilized but trended down sl. Due to ongoing drainage in post op site, Dr. Mojica recommends to transfuse another unit today. -Chronic atrial fibrillation with secondary hypercoagulable state. Eliquis remains on hold as ortho team thinks that pt is a high risk of bleeding and infection. F/u with ortho team and once bleeding no longer a concern, then BID ASA will need to be changed back to pt's chronic Eliquis therapy to reduce risk of stroke. Pt denies prior TIA/CVA. -History of Takotsubo's cardiomyopathy/chronic systolic heart failure. Previous echo on November 2024 with EF 40 to 45%. -HTN. Lisinopril was discontinued during last admission. BP low d/t ABLA. Hold metoprolol for low BP. -Depression and anxiety. On paroxetine. -Dyslipidemia. On statin -Glaucoma. On eyedrops DVT prophylaxis: Lovenox. CODE STATUS: Full code Disposition: Transition to rehab once okay from ortho standpoint. Sometime next week. * Yeni Paulino RN - 05/09/2025 11:03 AM EST Goals: Return to rehab Identify possible barriers to meeting goals/advancing plan of care: Monitoring RLE incision Stability of the patient: Moderately Unstable - Medium risk of patient condition declining or worsening End of Shift Summary: Patient resting comfortably in bed. Ortho changed dressing noted moderate serosanguineous drainage. Will continue to monitor. * Gris Mojica MD - 05/09/2025 9:31 AM EST Procedure: Removal of previous deep hardware, ORIF right distal femur fracture with intramedullary and lateral locked plating Surgery: 05/05/2025. The patient is postop day 4 status post above-stated procedure. Unfortunately she has very poor protoplasm and is draining from the proximal aspect of this most recent wound. This happened the last surgery and it took quite some time and eventually she did heal. The wound did dry and she was discharged. Cultures taken in the last procedure showed no growth to date. The same thing is happening nowwith the surgery. She is draining again from the proximal aspect of the wound. It is similar serousdrainage that was noted the first time she went through this on her previous surgery during her previous admission. Very thin and overall I think her nutritional status is not that great. She needs to eat as much calories as she can to help this wound heal. She is having a Ensure supplement with every meal. I changed her dressing this morning. The wound shows no sign of erythema but there is continuous serous drainage from the proximal aspect as noted above. I will continue to monitor this to ensure that it continues to stabilize if not then we will have to take her to the operating room again to help this heal and dry as has happened prior. I informed Faby that there are only a certain number of times we can open the skin wound before it just by default becomes infected she understood this. As such it is imperative that this wound dry and hopefully without me having to take her back to surgery. Her H&H this morning is 8.2/26. Given her poor protoplasm status, this draining wound, and her recent large surgery I recommend transfusing her 1 unit of packed red blood cells. Eliquisshould be held for now. Prophylactic Lovenox is fine. Once this wound settles can start Eliquis again. But at this point it is not okay to do so. * Jenise Carmona RN - 05/09/2025 3:02 AM EST Goals: Problem: Sensory: Acute Pain Goal: Pain level will improve or be tolerable Outcome: Progressing Problem: Sensory: Acute Pain Goal: Pain level will improve or be tolerable Outcome: Progressing Identify possible barriers to meeting goals/advancing plan of care: await symptoms to improve and rehab placement Stability of the patient: Moderately Stable - Low risk of patient condition declining or worsening End of Shift Summary: vss afebrile. R hip dsg w marifer wrap and brace immobilizer intact. +cmst. R foot slightly cooler than l foot. Allevyn intact on coccyx * Jackie Goncalves RN - 05/08/2025 3:54 PM EST Problem: Sensory: Acute Pain Goal: Pain level will improve or be tolerable Outcome: Progressing Goal: Ability to develop a pain control plan will improve Outcome: Progressing Problem: Cognitive: Grover Marv Fall Risk Goal: Mobility requiring assistance of person or device Outcome: Progressing Problem: Physical Regulation: Periop Procedure - Major Goal: Postoperative complications will be avoided or minimized Outcome: Progressing Goal: Ability to maintain clinical measurements within normal limits will improve Outcome: Progressing Problem: Activity: Physical Mobility Impairment Goal: Ability to ambulate will improve Outcome: Progressing Goal: Range of joint motion will be supported Outcome: Progressing Problem: Skin Integrity: Skin Integrity Impairment Goal: Skin integrity will improve Outcome: Progressing Problem: Cognitive: Skin Integrity Impairment Goal: Knowledge of the prescribed therapeutic regimen will improve Outcome: Progressing Problem: Nutritional: Skin Integrity Impairment Goal: Dietary intake will improve Outcome: Progressing Problem: Self-Care: Skin Integrity Impairment Goal: Compliance with treatment plan for underlying cause of condition will improve Outcome: Progressing Problem: Patient Specific Problem: Skin Integrity Impairment Goal: Patient Specific Outcome Outcome: Progressing Problem: Skin Integrity: Pressure Injury Actual or Risk of Goal: Will not develop new pressure injury Outcome: Progressing Goal: Skin integrity will improve Outcome: Progressing Goal: Risk for impaired skin integrity will decrease Outcome: Progressing Problem: Activity:Pressure Injury Actual or Risk of Goal: Mobility will improve Outcome: Progressing Problem: Nutritional:Pressure Injury Actual or Risk of Goal: Nutritional status will improve Outcome: Progressing Problem: Patient Specific Problem: Pressure Injury Actual or Risk of Goal: Patient Specific Outcome Outcome: Progressing Problem: Skin Integrity: Pressure Injury Actual or Risk of Goal: Will not develop new pressure injury Outcome: Progressing Goal: Skin integrity will improve Outcome: Progressing Goal: Risk for impaired skin integrity will decrease Outcome: Progressing Problem: Activity:Pressure Injury Actual or Risk of Goal: Mobility will improve Outcome: Progressing Problem: Nutritional:Pressure Injury Actual or Risk of Goal: Nutritional status will improve Outcome: Progressing Problem: Patient Specific Problem: Pressure Injury Actual or Risk of Goal: Patient Specific Outcome Outcome: Progressing Problem: Fluid Volume: Bleeding Risk Goal: Will show no signs and symptoms of excessive bleeding Outcome: Progressing Problem: Cognitive: Bleeding Risk Goal: Ability to state signs and symptoms to report to health care provider will improve Outcome: Progressing Goals: Identify possible barriers to meeting goals/advancing plan of care: pending ortho clearance, H&H Stability of the patient: Moderately Stable - Low risk of patient condition declining or worsening End of Shift Summary: Pt full code, Aox4, VSS, 50% partial wt bear RLE with walker, RLE brace in place. Pt resting in bed at lowest position, alarm activated, rings call cabrera appropriately, care ongoing. * Arabella Valerio RN - 05/08/2025 2:56 PM EST CM Progress Note JEFF pending ortho clearance Barrier- ORIF on 05/05, monitor H&H and drainage Plan return to [facility] hold * Mecca Barrios MD - 05/08/2025 12:54 PM EST Images from the original note were not included. IMAN PROGRESS NOTE Date: 05/08/2025 Author: Mecca Barrios MD Patient ID: Isabella Díaz is a 84 y.o. female : 1940 MR#: [id number] SUBJECTIVE CC: Follow-up right femoral fracture Up in chair. BP stable. Hg better. Pain controlled. Dressing was changed by ortho team earlier. ROS: No nausea No abdominal pain Denies chest pain or dizziness No BM OBJECTIVE Vitals: Vitals: 05/08/25 0834 BP: 118/75 Pulse: 87 Resp: 18 Temp: 36.7 ??C (98.1 ??F) SpO2: 96% Physical Exam: General: Awake and alert. NAD psych: mood stable. No anxiety. Pleasant. CVS: S1 S2 Ext: Right knee immobilizer in place. Right hip wound proximally without bleeding. Distally coveredwith dressing and MARIFER/Brace. PUL: CTA BL GI: BS present. ND NT Skin: no cyanosis LAB RESULTS HEMATOLOGY Lab Results Component Value Date WBC 8.6 05/08/2025 HGB 8.7 (L) 05/08/2025 HCT 26.5 (L) 05/08/2025 MCV 91.4 05/08/2025 PLT 296 05/08/2025 CHEMISTRY Lab Results Component Value Date GLUCOSE 95 05/08/2025 NA 140 05/08/2025 K 4.3 05/08/2025 CO2 30 05/08/2025 CL 105 05/08/2025 BUN 26 (H) 05/08/2025 CREATININE 0.56 05/08/2025 EGFR 91 05/08/2025 CALCIUM 8.1 (L) 05/08/2025 MG 1.9 05/04/2025 PHOS 3.5 05/04/2025 ANIONGAP 5 05/08/2025 ASSESSMENT & PLAN 84-year-old female with PMH of A-fib on Eliquis, HTN, COPD, CHF/Takotsubo cardiomyopathy among others who presented with right leg pain. Patient recently suffered right hip femur fracture and was treated with total hip replacement. Postoperatively she had seroma/hematoma which required I&D which was not infected. Subsequently she was at the rehab but while undergoing PT developed severe pain and was found to have periprosthetic fracture of the right femur in the area of distal screw hole ofthe plate. Therefore patient was brought to the hospital and orthopedic surgical team was consulted. - Periprosthetic right distal femur fracture. S/p removal of previous hardware, ORIF of Right distal femur with intramedullary and lateral lockedplating. POD 3. Pain controlled Held lovenox yesterday after reviewing with Dr. Baeza d/t oozing blood. Checked DVT prophylaxis, anticoagulation/eliquis recommendations with Dr. Mojica today. She is worried about her bleeding/drainage, with a lot of metal in place and will be at risk of infection if this continues. Therefore her recommendation is to use prophylactic heparin/lovenox inhouse (start today) and 81 mg BID aspirin on discharge and when things settle then can restart Eliquis. - ABLA. With underlying chronic anemia. S/p 2 units of PRBC. Hg stabilized. -Chronic atrial fibrillation with secondary hypercoagulable state. Eliquis remains on hold as ortho team thinks that pt is a high risk of bleeding and infection. F/u with ortho team and once bleeding no longer a concern, then BID ASA will need to be changed back to pt's chronic Eliquis therapy to reduce risk of stroke. -History of Takotsubo's cardiomyopathy/chronic systolic heart failure. Previous echo on November 2024 with EF 40 to 45%. -HTN. Lisinopril was discontinued during last admission. BP low d/t ABLA. Hold metoprolol for low BP. -Depression and anxiety. On paroxetine. -Dyslipidemia. On statin -Glaucoma. On eyedrops DVT prophylaxis: Lovenox. CODE STATUS: Full code Disposition: Transition to rehab once okay from ortho standpoint. * BURAK Davis - 05/08/2025 12:21 PM EST Orthopedic Trauma Progress Note CHIEF COMPLAINT Postop follow up SURGERY ORIF right femur on 05-05-[address] Baeza ASSESSMENT/PLAN Patient is postop day 3 status post ORIF right femur by Dr. Baeza. Patient is stable. Patient has acute on chronic anemia in the setting of being postop. Patient received a transfusion yesterday. Patient's dressing was saturated again this morning. - Weightbearing: Continue weightbearing as tolerated on affected extremity with walker protection - Activity: Encourage out of bed with fall risk protocol; continue foot and ankle pumps while resting; do not push right hip past comfort, may flex to 90 degrees while sitting - Therapy: Continue PT/OT - Pain control: Continue current regimen; apply ice to affected area as needed - Dressing/wound care/DME: Dressing should remain clean and dry; nursing may reinforce as needed. DSD. Consider switching to prevena if compressive dressing insufficient - Misc: Continue IS; appreciate medical team management of comorbidities - Proc: No indication for surgical intervention - Labs: Continue to trend H/H and transfuse as needed - ABX: 3 doses of postop Cefazolin complete at this point - DVT prophylaxis: Pneumatic compression stockings; per primary team while inpatient, consider Lovenox SQ 40 mg daily; on discharge, PO ASA 81 mg BID for 6 weeks from surgery - Dispo: Hold d/c for now, h/h monitoring and drainage output. SUBJECTIVE Overnight: No overnight events reported. Patient states she is doing well. States that the pain is well-controlled. Reports that she did getout of bed yesterday. Increased drainage noted. Patient denies numbness and paresthesias. OBJECTIVE Vitals: 05/08/25 0834 BP: 118/75 Pulse: 87 Resp: 18 Temp: 36.7 ??C (98.1 ??F) SpO2: 96% General: Alert and cooperative, lying comfortably in bed, in no acute distress HEENT: Normocephalic and atraumatic Pulmonary: No increased work of breathing appreciated and able to speak in full sentences Musculoskeletal: Right lower extremity- hinged knee brace in place, dressing about hip has sanguinous saturation through and was taken down, staple line clean/dry/intact, surrounding tissue was compressed to try and express as much fluid as possible until no fluid was appreciated, wound was redressed with compressive dressing, fires EHL/FHL, dorsiflexion/plantarflexion intact, sensation intact distally, appears well-perfused Skin: Generally normal tone, dry, warm Lab Results Component Value Date WBC 8.6 05/08/2025 HGB 8.7 (L) 05/08/2025 HCT 26.5 (L) 05/08/2025 PLT 296 05/08/2025 Lab Results Component Value Date NA 140 05/08/2025 K 4.3 05/08/2025 CL 105 05/08/2025 BUN 26 (H) 05/08/2025 CREATININE 0.56 05/08/2025 GLUCOSE 95 05/08/2025 CALCIUM 8.1 (L) 05/08/2025 Lab Results Component Value Date CRP 10.90 (H) 04/09/2025 No results found for: HGBA1C Lab Results Component Value Date PT 13.8 05/04/2025 Patient seen with and above agreed to by Dr. Mojica. Adelina Taylor PAC * Herlinda Villagran, PT - 05/08/2025 10:16 AM EST [facility] Physical Therapy Treatment PT Discharge Recommendations: assisted facility placement Staff Recommendations for safe patient handling: mod assist, bed mobility, transfers, min assist for gait , rwalker, wbat on rle with hinge knee brace Precautions Medical Precautions: Fall Risk, Limb restriction Safety Interventions: Call cabrera within reach, Bed alarm, Side rails up x1 RUE Weight Bearing Status: Full LUE Weight Bearing Status: Full RLE Weight Bearing Status: As Tolerated LLE Weight Bearing Status: Full Orthopedic Precautions: Other (Comment) (avoid excessive ROM) Orthoses Applied: (hinge knee brace, abd pillow in bed) Prosthesis/Orthosis Used: KAFO History of Present Illness: Patient is a 84 y.o. female admitted to [facility] on 05/01/2025 with: Problem List[1] Modified [place] Scale: 4=Moderately severe disability. Unable to attend to own bodily needs without assistance or unable to walk unassisted. Fall prevention education provided including use of call light in hospital, use of appropriate assistive device, safe mobility techniques, and safety measures at home. Continue PT as per POC. Subjective Im here at least until Sunday05/08/25 1006 PT Last Visit PT Received On 05/08/25 General Family/Caregiver Present Yes PT Time Calculation PT Start Time 1006 PT Stop Time 1036 PT Time Calculation (min) 30 min Precautions Medical Precautions Fall Risk;Limb restriction Safety Interventions Call cabrera within reach;Bed alarm;Side rails up x1 RLE Weight Bearing Status As Tolerated Orthopedic Precautions Other (Comment) (avoid excessive ROM) Orthoses Applied (hinge knee brace, abd pillow in bed) Prosthesis/Orthosis Used [facility] Pain Assessment Pain Assessment 0-10 Pain Score 4 Pain Type Surgical pain Pain Location Hip (thigh) Pain Orientation Right Cognition Overall Cognitive Status WFL Following Commands Follows all commands and directions without difficulty Activity Tolerance Endurance Tolerates 20 - 30 min activity with multiple rests Static Sitting Balance Static Sitting-Level of Assistance Supervision Dynamic Sitting Balance Dynamic Sitting-Level of Assistance Close supervision Dynamic Sitting-Balance Support Right upper extremity supported;Left upper extremity supported Static Standing Balance Static Standing-Level of Assistance Contact guard Static Standing-Balance Support Right upper extremity supported;Left upper extremity supported Dynamic Standing Balance Dynamic Standing-Level of Assistance Contact guard Dynamic Standing-Balance Ambulation Dynamic Standing-Balance Support Right upper extremity supported;Left upper extremity supported Transfers Sit to Stand Assistance Minimum assistance Chair/Bed to Chair/Bed Transfer Assistance Contact guard Toilet Transfer Assistance Minimum assistance Ambulation Walking Assistance Contact guard Device Rolling walker Distance Ambulated (ft) 30 Comments antalgic gait, decreased weightbearing over RLE, but getting foot flat , wbat Procedures Procedures Gait Training Gait Training Gait Training Time Entry 30 Gait Training Activity 1 pt sitting up in chair (short sitting,) c/o pressure like pain r thigh, 4/10; moved sit to stand , initially requiring min assist for lift off, vcs for hand placement ; Gait Training Activity 2 gait training with r hinge knee brace, rwalkr, wbat on r, vc's for uprighttrunk; lowered rwalker for better UE support; pt progressing to a step through- more symmetrical gait pattern with foot flat; no LOb, but fatigued after 20 ft. Gait Training Activity 3 pt performed SPT to bed side chair, vcs to back up with rwalker, off load rle, reach back and sit , with min assist for graded control of descent. Gait Training Activity 4 pt performed arom laq's, leg extended ap's x 10 reps to restore rom,strength and improve stength length, stabilty in gait Gait Training Activity 5 rle positioned extended on stool, sitting , reporting relief of pressure like pain in thigh during short sitting PT Assessment PT Assessment Results Decreased strength;Decreased range of motion;Decreased endurance;Impaired balance;Impaired gait;Decreased mobility;Decreased skin integrity;Orthopedic restrictions;Pain Prognosis Good Evaluation/Treatment Tolerance Patient limited by fatigue Medical Staff Made Aware Yes Plan Treatment/Interventions Functional transfer training;LE strengthening/ROM;Endurance training;Patient/family training;Equipment eval/education;Bed mobility;Gait training;Continued evaluation;Balance tr aining;Stair training PT Plan Skilled PT PT Frequency 5 days per week PT Discharge Recommendations assisted facility placement Equipment Recommended Walker - rolling PT - Evaluation Status Complete Procedure/Treatment: Procedures Procedures: Gait Training Gait Training Gait Training Time Entry: 30 Gait Training Activity 1: pt sitting up in chair (short sitting,) c/o pressure like pain r thigh, 4/10; moved sit to stand , initially requiring min assist for lift off, vcs for hand placement ; Gait Training Activity 2: gait training with r hinge knee brace, rwalkr, wbat on r, vc's for upright trunk; lowered rwalker for better UE support; pt progressing to a step through- more symmetrical gait pattern with foot flat; no LOb, but fatigued after 20 ft. Gait Training Activity 3: pt performed SPT to bed side chair, vcs to back up with rwalker, off loadrle, reach back and sit , with min assist for graded control of descent. Gait Training Activity 4: pt performed arom laq's, leg extended ap's x 10 reps to restore rom,strength and improve stength length, stabilty in gait Gait Training Activity 5: rle positioned extended on stool, sitting , reporting relief of pressure like pain in thigh during short sitting Patient left sitting up in chair, leg propped extended on stool, alarm in place. RN notified of pt.status, location, response to treatment, and therapy recommendations. Physical Therapy Assessment/Plan PT Assessment PT Assessment Results: Decreased strength, Decreased range of motion, Decreased endurance, Impairedbalance, Impaired gait, Decreased mobility, Decreased skin integrity, Orthopedic restrictions, Pain Prognosis: Good Evaluation/Treatment Tolerance: Patient limited by fatigue Medical Staff Made Aware: Yes Plan Treatment/Interventions: Functional transfer training, LE strengthening/ROM, Endurance training, Patient/family training, Equipment eval/education, Bed mobility, Gait training, Continued evaluation, Balance training, Stair training PT Plan: Skilled PT PT Frequency: 5 days per week PT Duration of Sessions: 15-30 min per session PT Treatments per day: 1 time per day PT Discharge Recommendations: assisted facility placement Equipment Recommended: Walker - rolling PT - Evaluation Status: Complete Physical Therapy Goals/Education Encounter Problems Encounter Problems (Active) Template: Physical Therapy Problem: PT Short Term Goals Dates: Start: 05/06/25 Goal: Patient will ambulate with rwalker, hingeknee brace, wbat, stand by assist (Resolved) Dates: Start: 05/06/25 Expected End: 05/12/25 Resolved: 05/07/25 Outcomes Date/Time User Outcome 05/07/25 Jose Alberto Bermudez PT Completed Goal: Patient will ambulate with rwalker, hinge knee brace, wbat, x 50 ft, stand by assist Dates: Start: 05/06/25 Expected End: 05/13/25 Outcomes Date/Time User Outcome 05/07/25 Jose Alberto Bermudez PT Progressing Goal: Patient will be able to safely negotiate 5 stairs with 1 rail, min assist Dates: Start: 05/06/25 Expected End: 05/13/25 Outcomes Date/Time User Outcome 05/07/25 Jose Alberto Bermudez PT Not Progressing Encounter Problems (Resolved) There are no resolved problems. Education Documentation Precautions, taught by Herlinda Villagran PT at 05/08/2025 1:16 PM. Learner: Patient Readiness: Acceptance Method: Explanation Response: Verbalizes Understanding Comment: educated pt in hand, foot placement in transfers, upright alignment in gait ADL Training, taught by Herlinda Villagran PT at 05/08/2025 1:16 PM. Learner: Patient Readiness: Acceptance Method: Explanation Response: Verbalizes Understanding Comment: educated pt in hand, foot placement in transfers, upright alignment in gait Home Exercise Program, taught by Herlinda Villagran PT at 05/08/2025 1:16 PM. Learner: Patient Readiness: Acceptance Method: Explanation Response: Verbalizes Understanding Comment: educated pt in hand, foot placement in transfers, upright alignment in gait Mobility Training, taught by Herlinda Villagran PT at 05/08/2025 1:16 PM. Learner: Patient Readiness: Acceptance Method: Explanation Response: Verbalizes Understanding Comment: educated pt in hand, foot placement in transfers, upright alignment in gait Education Comments No comments found. Herlinda Villagran PT [1] Patient Active Problem List Diagnosis Atrial fibrillation ([facility] V24, [facility] V28) CHF (congestive heart failure) ([facility] V24, [facility] V28) Collagenous colitis Depression HTN (hypertension) Mitral valve regurgitation Takotsubo cardiomyopathy C. 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 S/P right hip fracture Closed displaced subtrochanteric fracture of right femur ([facility] V24, [facility] V28) Bleeding from right hip wound Atrial fibrillation with rapid ventricular response ([facility] V24, [facility] V28) Moderate malnutrition ([facility] V24) Periprosthetic fracture around prosthetic joint, initial encounter Other closed fracture of distal end of right femur, initial encounter ([facility] V24, [facility] V28) Sharron-prosthetic fracture of femur at tip of prosthesis * Anne Spear OT - 05/07/2025 5:29 PM EST Therapy session was attempted for Isabella Díaz by Anne Spear OT on 05/07/2025. The patient was unable to be seen for the following reason(s): Other: pt getting blood at time of OT visit Plan for return visit: Tomorrow * Kamilla Bermudez PT - 05/07/2025 4:27 PM EST [facility] Physical Therapy Treatment PT Discharge Recommendations: assisted facility placement Staff Recommendations for safe patient handlin person Jodie with wwalker Precautions Medical Precautions: Fall Risk Safety Interventions: Call cabrera within reach, ID band on RUE Weight Bearing Status: Full LUE Weight Bearing Status: Full RLE Weight Bearing Status: As Tolerated LLE Weight Bearing Status: Full Orthopedic Precautions: Other (Comment) (avoid excessive ROM) Orthoses Applied: (abductor pillow in bed) Prosthesis/Orthosis Used: KAFO (hinge knee) History of Present Illness: Patient is a 84 y.o. female admitted to [facility] on 05/01/2025 with: Problem List[1] Fall prevention education provided including use of call light in hospital, use of appropriate assistive device, safe mobility techniques, and safety measures at home. Continue PT as per POC. Subjective Im ok but you should have heard the pop sound Objective I 05/07/25 1515 PT Last Visit PT Received On 05/07/25 General Family/Caregiver Present No PT Time Calculation PT Start Time 1515 PT Stop Time 1545 PT Time Calculation (min) 30 min Precautions Medical Precautions Fall Risk Safety Interventions Call cabrera within reach;ID band on RUE Weight Bearing Status Full LUE Weight Bearing Status Full RLE Weight Bearing Status As Tolerated LLE Weight Bearing Status Full Vital Signs Patient Identification Yes Oxygen Therapy Oxygen Therapy None (Room air) Pain Assessment Pain Assessment 0-10 Pain Score 4 Pain Type Acute pain;Surgical pain Pain Location Leg Pain Orientation Right Cognition Overall Cognitive Status WFL Arousal/Alertness Appropriate responses to stimuli Orientation Level Oriented X4 Following Commands Follows all commands and directions without difficulty Safety Judgment Good awareness of safety precautions Awareness of Errors Good awareness of errors made Activity Tolerance Endurance Tolerates 10 - 20 min exercise with multiple rests Static Sitting Balance Static Sitting-Level of Assistance Supervision Static Standing Balance Static Standing-Level of Assistance Minimum assistance;Contact guard Bed Mobility Rolling Right Assistance Contact guard Rolling Left Assistance Contact guard Lying to Sitting Assistance Contact guard Transfers Sit to Stand Assistance Minimum assistance Chair/Bed to Chair/Bed Transfer Assistance Contact guard Toilet Transfer Assistance Minimum assistance Toilet Transfer Technique Ambulating Transfer Comments pt needed assist with pericare Ambulation Walking Assistance Contact guard Device Rolling walker Distance Ambulated (ft) 15 (2x15) Comments antalgic on RLE difficulty getting heel down for heel contact RUE Assessment RUE Assessment Within Functional Limits LUE Assessment LUE Assessment Within Functional Limits RLE Assessment RLE Assessment Impaired RLE Assessment Comments 3-/5 LLE Assessment LLE Assessment Within Functional Limits Procedures Procedures Gait Training;Therapeutic Activity Gait Training Gait Training Time Entry 15 Therapeutic Activity Therapeutic Activity Time Entry 15 PT Assessment PT Assessment Results Decreased strength;Decreased range of motion;Decreased endurance;Impaired balance;Impaired gait;Decreased mobility Prognosis Good Evaluation/Treatment Tolerance Patient limited by fatigue Medical Staff Made Aware Yes Plan Treatment/Interventions Functional transfer training;LE strengthening/ROM;Bed mobility;Gait training PT Plan Skilled PT PT Frequency 2-5 days per week PT Duration of Sessions 15-30 min per session PT Treatments per day 1 time per day PT Discharge Recommendations assisted facility placement Equipment Recommended Walker - rolling Procedure/Treatment: Procedures Procedures: Gait Training, Therapeutic Activity Gait Training Gait Training Time Entry: 15 Therapeutic Activity Therapeutic Activity Time Entry: 15 Patient left sitting up in chair. RN notified of pt. status, location, response to treatment, and therapy recommendations. Physical Therapy Assessment/Plan PT Assessment PT Assessment Results: Decreased strength, Decreased range of motion, Decreased endurance, Impairedbalance, Impaired gait, Decreased mobility Prognosis: Good Evaluation/Treatment Tolerance: Patient limited by fatigue Medical Staff Made Aware: Yes Plan Treatment/Interventions: Functional transfer training, LE strengthening/ROM, Bed mobility, Gait training PT Plan: Skilled PT PT Frequency: 2-5 days per week PT Duration of Sessions: 15-30 min per session PT Treatments per day: 1 time per day PT Discharge Recommendations: assisted facility placement Equipment Recommended: Walker - rolling PT - Evaluation Status: Complete Physical Therapy Goals/Education Encounter Problems Encounter Problems (Active) Template: Physical Therapy Problem: PT Short Term Goals Dates: Start: 05/06/25 Goal: Patient will ambulate with rwalker, hingeknee brace, wbat, stand by assist Dates: Start: 05/06/25 Expected End: 05/12/25 Goal: Patient will ambulate with rwalker, hinge knee brace, wbat, x 50 ft, stand by assist Dates: Start: 05/06/25 Expected End: 05/13/25 Goal: Patient will be able to safely negotiate 5 stairs with 1 rail, min assist Dates: Start: 05/06/25 Expected End: 05/13/25 Encounter Problems (Resolved) There are no resolved problems. Education Documentation Home Exercise Program, taught by Kamilla Bermudez, PT at 05/07/2025 4:26 PM. Learner: Patient Readiness: Eager Method: Explanation, Demonstration Response: Verbalizes Understanding, Demonstrated Understanding, Needs Reinforcement Mobility Training, taught by Kamilla Bermudez PT at 05/07/2025 4:26 PM. Learner: Patient Readiness: Eager Method: Explanation, Demonstration Response: Verbalizes Understanding, Demonstrated Understanding, Needs Reinforcement Education Comments No comments found. Kamilla Bermudez, PT [1] Patient Active Problem List Diagnosis Atrial fibrillation (CMS/HCC V24, CMS/HCC V28) CHF (congestive heart failure) (CMS/HCC V24, CMS/HCC V28) Collagenous colitis Depression HTN (hypertension) Mitral valve regurgitation Takotsubo cardiomyopathy C. 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 S/P right hip fracture Closed displaced subtrochanteric fracture of right femur (CMS/HCC V24, CMS/[facility] V28) Bleeding from right hip wound Atrial fibrillation with rapid ventricular response (CMS/HCC V24, CMS/HCC V28) Moderate malnutrition ([facility] V24) Periprosthetic fracture around prosthetic joint, initial encounter Other closed fracture of distal end of right femur, initial encounter ([facility] V24, [facility] V28) Sharron-prosthetic fracture of femur at tip of prosthesis * Mecca Barrios MD - 05/07/2025 3:31 PM EST Images from the original note were not included. IMAN PROGRESS NOTE Date: 05/07/2025 Author: Mecca Barrios MD Patient ID: Isabella Díaz is a 84 y.o. female : 1940 MR#: [id number] SUBJECTIVE CC: Follow-up right femoral fracture Remains anemic this morning and second unit of PRBC ordered. Patient reports no new symptoms. Right-sided hip pain is controlled and not much pain when at rest and not moving. Seen by Ortho team and bloodsoaked dressings have been changed earlier. ROS: No nausea No abdominal pain Denies chest pain or dizziness No palpitations OBJECTIVE Vitals: Vitals: 05/07/25 1459 BP: 125/75 Pulse: 102 Resp: 17 Temp: 36.8 ??C (98.2 ??F) SpO2: 100% Physical Exam: General: Awake and alert. NAD psych: mood and affect normal. CVS: S1 S2 Ext: no pedal edema. Right knee immobilizer in place. Right hip white dressing without soaking but apparently was changed this morning. PUL: CTA BL GI: BS present. ND NT Skin: no cyanosis LAB RESULTS HEMATOLOGY Lab Results Component Value Date WBC 10.6 05/07/2025 HGB 6.7 (L) 05/07/2025 HCT 20.1 (L) 05/07/2025 MCV 92.6 05/07/2025 PLT 241 05/07/2025 CHEMISTRY Lab Results Component Value Date GLUCOSE 106 (H) 05/07/2025 NA 139 05/07/2025 K 3.7 05/07/2025 CO2 30 05/07/2025 CL 104 05/07/2025 BUN 22 05/07/2025 CREATININE 0.71 05/07/2025 EGFR 85 05/07/2025 CALCIUM 8.4 (L) 05/07/2025 MG 1.9 05/04/2025 PHOS 3.5 05/04/2025 ANIONGAP 5 05/07/2025 ASSESSMENT & PLAN 84-year-old female with PMH of A-fib on Eliquis, HTN, COPD, CHF/Takotsubo cardiomyopathy among others who presented with right leg pain. Patient recently suffered right hip femur fracture and was treated with total hip replacement. Postoperatively she had seroma/hematoma which required I&D which was not infected. Subsequently she was at the rehab but while undergoing PT developed severe pain and was found to have periprosthetic fracture of the right femur in the area of distal screw hole ofthe plate. Therefore patient was brought to the hospital and orthopedic surgical team was consulted. - Periprosthetic right distal femur fracture. S/p removal of previous hardware, ORIF of Right distal femur with intramedullary and lateral lockedplating. POD 2. Pain controlled Eliquis remains on hold. Concern for some bleeding at postoperative site. On prophylactic lovenox. Will check with ortho team about AC recommendations - ABLA. With underlying chronic anemia. Getting 2nd PRBC today. -Chronic atrial fibrillation with secondary hypercoagulable state. Eliquis remains on hold. -History of Takotsubo's cardiomyopathy/chronic systolic heart failure. Previous echo on November 2024 with EF 40 to 45%. -HTN. Lisinopril was discontinued during last admission. BP low d/t ABLA. Hold metoprolol for low BP. -Depression and anxiety. On paroxetine. -Dyslipidemia. On statin -Glaucoma. On eyedrops DVT prophylaxis: as above. Postoperative chemical prophylaxis as per orthopedic surgical team CODE STATUS: Full code Disposition: Transition to rehab once okay from ortho standpoint. * Swati Rader RD - 05/07/2025 10:28 AM EST 05/07/2025 @ 10:28 AM EST Nutrition Follow Up Note Reason for RD Intervention: Assessment Type: Follow-up Anthropometrics: Height: 165.1 cm (65 ) Weight: 47.6 kg (105 lb) Weight Method: Stated Frame Size: Small BMI (Calculated): 17.5 BMI Class: Underweight IBW (lbs): 125 UBW (lbs): 120 Recent Weight Change: Yes (ongoing weight loss, time frame unclear) Current Diet and Supplements: Dietary Orders (From admission, onward) Start Ordered 05/05/25 1344 Adult diet [facility]; General, Cardiac; Regular; Cardiac (Order Panel) Diet effective now Question Answer Comment Location [facility] Diet Type (req) General Diet Type (req) Cardiac General Diet Regular Diet Type (cardiac) Cardiac 05/05/25 1347 05/04/25 1028 Dietary nutrition supplements Lunch; [facility]; Standard Oral Supplement Continuous Comments: chocolate Question Answer Comment Frequency Lunch Location [facility] Supplements Standard Oral Supplement 05/04/25 1027 History of presenting illness: Patient is a 84 y.o. female with a history of Medical History[1] Surgical History[2] admitted 05/01/2025 with Periprosthetic fracture around prosthetic joint, initial encounter. Weight History: Wt Readings from Last 10 Encounters: 05/04/25 47.6 kg (105 lb) 04/09/25 (!) 40.8 kg (90 lb) 04/01/25 (!) 40.8 kg (90 lb) 03/13/25 (!) 40.8 kg (90 lb) 03/06/25 (!) 41.9 kg (92 lb 6.4 oz) 02/11/25 (!) 41.9 kg (92 lb 6.4 oz) 11/24/24 (!) 41.1 kg (90 lb 9.6 oz) 09/16/24 (!) 41.9 kg (92 lb 6.4 oz) 09/04/24 (!) 41.1 kg (90 lb 9.6 oz) 08/24/24 49.9 kg (110 lb) Subjective Assessment: Patient seen for follow up. Pt reports PO intake at meals has been good since last visit- [id number]% of trays. States she has not been receiving ensure supplements, but would like to start receiving at breakfast and dinner. Updated weight on 05/04 was 105 lb, indicating 13 lb weight gain since February. Noted pt with +1 right lower extremity edema. Status post ORIF of right femur on 05/05. Nutrition-Related Lab Values: Results from last 7 days Lab Units 05/07/25 0635 05/07/25 0634 05/05/25 0615 05/04/25 0700 SODIUM mmol/L -- 139 < > 140 POTASSIUM mmol/L -- 3.7 < > 3.8 PHOSPHORUS mg/dL -- -- -- 3.5 MAGNESIUM mg/dL -- -- -- 1.9 CHLORIDE mmol/L -- 104 < > 106 CO2 mmol/L -- 30 < > 30 BUN mg/dL -- 22 < > 14 CREATININE mg/dL -- 0.71 < > 0.60 EGFR mL/min/1.73m2 -- 85 < > 90 CALCIUM mg/dL -- 8.4* < > 8.5 BILIRUBIN TOTAL mg/dL -- -- -- 0.7 ALK PHOS unit/L -- -- -- 77 ALT unit/L -- -- -- 15 AST unit/L -- -- -- 13 GLUCOSE mg/dL -- 106* < > 92 WBC AUTO K/mcL 10.6 -- < > 7.4 < > = values in this interval not displayed. No results found for: LIPASE Medications: MEDSSCHEDULED[3] CONTINUOUS: MEDSCONTINUOUS[4] MEDSPRN[5] Energy Needs: kcal, gm protein, mL fluid per day. Total Energy Estimated Needs: Based on stated weight 46 k - 1840 (35 - 40kcal/kg), 46 - 55g protein/day (1 - 1.2g/kg), 1ml/kcal fluid Height: 165.1 cm (65 ) Temp: 36.7 ??C (98.1 ??F) Food/Nutrition-Current Status: Intake Type: P.O. Current Diet Status: Appropriate Appetite: Good Intake Amount (%): 75-100% Intake Assessment: Adequate Main IVF: LR Main IVF Rate (mL/hr): 100 Nutrition Focused Physical Findings: Overall Appearance: Moderate to severe losses to temporal, orbital, buccal, clavicle, shoulder, tricep, and interroseous regions. Nerves and Cognition: Alert, Oriented Skin: wound incision to right thigh, pressure wound to coccyx, not staged, noted to be healed per Epic documentation Loss of Fat Location: Orbital, Buccal, Triceps Loss of Fat Amt-Orbital: Severe Loss of Fat Amt-Buccal: Moderate Loss of Fat Amt-Triceps: Severe Loss of Muscle Location: Temples, Clavicle, Shoulders, Interosseous Loss of Muscle Amt-Temples: Moderate Loss of Muscle Amt-Clavicle: Severe Loss of Muscle Amt-Shoulders: Moderate Loss of Muscle Amt-Inter Musc: Severe Nutrition Diagnosis: Code Type: Severe-Chronic (E43) Severe-Chronic Criteria: Severe Body Fat Depletion, Severe Muscle Mass Depletion Status: (Ongoing) Diagnosis: Malnutrition Etiology: Changes in taste and appetite or preference, Physiologic causes Symptoms: Pt with moderate and severe muscle and fat losses to multilple regions per nutrition focused physical exam, ongoing weight loss per pt. Nutrition Interventions: Medical Food Supplement, Diet Order, Meals/Snacks Increase ensure plus high protein to BID (breakfast and lunch, chocolate) Liberalize to 2 gm Na diet in setting of inadequate intake prior to admission, low BMI Monitor weights, labs, I/O Goals: Patient will consume greater than or equal to 75% meals., Patient will consume ONS., Electrolytes within normal range., Maintain weight., Stooling appropriately., and Maintain skin integrity. Monitoring/Evaluation: Fluid/Beverage Intake, Food Intake, Medical Food Supp/Oral Nutrition Supp, Weight, Renal/Electrolyte Profile, Gastrointestinal Profile, Diet Order, IV Fluid Intake Follow Up: Nutrition Priority Level: Moderate RD remains available and will continue to follow. Signature: Swati Rader RD [1] Past Medical History: Diagnosis Date Atrial fibrillation ([facility] V24, [facility] V28) 01/17/2021 DX:Atrial fibrillation ([facility]) CHF (congestive heart failure) ([facility] V24, [facility] V28) 01/17/2021 DX:CHF (congestive heart failure) ([facility]) Clostridium difficile diarrhea 03/26/2024 DX:Clostridium difficile diarrhea Depression 01/17/2021 DX:Depression Hypertension NSTEMI (non-ST elevated myocardial infarction) ([facility] V24, [facility] V28) 01/17/2021 DX:NSTEMI (non-ST elevated myocardial infarction) ([facility]); COMMENT: 12/2020 Dr Eller, holter monitor and cardiac cath as outpt. NSTEMI (non-ST elevated myocardial infarction) ([facility] V24, [facility] V28) 01/17/202112/2020 Dr Eller, holter monitor and cardiac cath as outpt. Pubic ramus fracture ([facility] V24, [facility] V28) 11/30/2021 DX:Pubic ramus fracture ([facility]) Takotsubo cardiomyopathy 01/17/2021 DX:Takotsubo cardiomyopathy [2] Past Surgical History: Procedure Laterality Date JOINT REPLACEMENT OTHER SURGICAL HISTORY PROCEDURE: HISTORICAL MITRAL VALVE REPL OTHER SURGICAL HISTORY PROCEDURE: HISTORY OTHER; COMMENT: right humerus fracture TONSILLECTOMY PROCEDURE: HISTORICAL TONSILLECTOMY [3] atorvastatin, 20 mg, oral, Nightly cholecalciferol, 50,000 Units, oral, Weekly cholestyramine, 4 g, oral, BID with meals dorzolamide, 1 drop, Both Eyes, BID enoxaparin, 40 mg, subcutaneous, Daily latanoprost, 1 drop, Both Eyes, Nightly metoprolol succinate, 25 mg, oral, Daily PARoxetine, 20 mg, oral, q AM polyetheylene glycol, 17 g, oral, Nightly sodium chloride, 10 mL, intravenous, BID [4] lactated Ringer's, 100 mL/hr, Last Rate: 100 mL/hr (05/05/25 1127) [5] PRN medications: acetaminophen, HYDROmorphone, naloxone, ondansetron, oxyCODONE, oxyCODONE, Insert peripheral IV AND Maintain IV access AND Saline lock IV AND sodium chloride AND sodium chloride, sodium chloride, sodium chloride * BURAK Urbina - 05/07/2025 7:55 AM EST Orthopedic Trauma Progress Note CHIEF COMPLAINT Postop follow up SURGERY ORIF right femur on 05-05-[address] Baeza ASSESSMENT/PLAN Patient is postop day 2 status post ORIF right femur by Dr. Baeza. Patient is stable. Patient has acute on chronic anemia in the setting of being postop. Patient received a transfusion yesterday. Patient's dressing was saturated and needed changing but there was no evidence of active bleeding. The patient has historically had drainage from her surgical wound. - Weightbearing: Continue weightbearing as tolerated on affected extremity with walker protection - Activity: Encourage out of bed with fall risk protocol; continue foot and ankle pumps while resting; do not push right hip past comfort, may flex to 90 degrees while sitting - Therapy: Continue PT/OT - Pain control: Continue current regimen; apply ice to affected area as needed - Dressing/wound care/DME: Dressing should remain clean and dry; nursing may reinforce as needed - Misc: Continue IS; appreciate medical team management of comorbidities - Proc: No indication for surgical intervention - Labs: Continue to trend H/H and transfuse as needed - ABX: 3 doses of postop Cefazolin complete at this point - DVT prophylaxis: Pneumatic compression stockings; per primary team while inpatient, consider Lovenox SQ 40 mg daily; on discharge, PO ASA 81 mg BID for 6 weeks from surgery - Dispo: Anticipate discharge to rehab when medically appropriate, possibly tomorrow SUBJECTIVE Overnight: No overnight events reported. Patient states she is generally doing well. States that the pain is well- controlled. Reports that she did get out of bed yesterday. Patient denies numbness and paresthesias. OBJECTIVE Vitals: 05/07/25 0800 BP: 110/76 Pulse: (!) 111 Resp: 17 Temp: 37.1 ??C (98.8 ??F) SpO2: 97% General: Alert and cooperative, lying comfortably in bed, in no acute distress HEENT: Normocephalic and atraumatic Pulmonary: No increased work of breathing appreciated and able to speak in full sentences Musculoskeletal: Right lower extremity- hinged knee brace in place, dressing about hip has sanguinous saturation through and was taken down, staple line clean/dry/intact, surrounding tissue was compressed to try and express as much fluid as possible until no fluid was appreciated, wound was redressed, fires EHL/FHL, dorsiflexion/plantarflexion intact, sensation intact distally, appears well-perfused Skin: Generally normal tone, dry, warm Lab Results Component Value Date WBC 10.6 05/07/2025 HGB 6.7 (L) 05/07/2025 HCT 20.1 (L) 05/07/2025 PLT 241 05/07/2025 Lab Results Component Value Date NA 139 05/07/2025 K 3.7 05/07/2025 CL 104 05/07/2025 BUN 22 05/07/2025 CREATININE 0.71 05/07/2025 GLUCOSE 106 (H) 05/07/2025 CALCIUM 8.4 (L) 05/07/2025 Lab Results Component Value Date CRP 10.90 (H) 04/09/2025 No results found for: HGBA1C Lab Results Component Value Date PT 13.8 05/04/2025 Patient seen with and above agreed to by Dr. Baeza. Honorio Jean-Baptiste PA-C * Mecca Barrios MD - 05/06/2025 4:59 PM EST Images from the original note were not included. IMAN PROGRESS NOTE Date: 05/06/2025 Author: Mecca Barrios MD Patient ID: Isabella Díaz is a 84 y.o. female : 1940 MR#: [id number] SUBJECTIVE CC: Follow-up right femoral fracture Soft and low this morning. Hemoglobin also came low at 6.8. Patient denies dizziness or lightheadedness Denies chest pain. She consented to blood transfusion and is getting 1 unit of PRBC. Right hip pain mild while at rest and not moving. ROS: No nausea No abdominal pain Denies chest pain or dizziness No palpitations OBJECTIVE Vitals: Vitals: 05/06/25 1506 BP: 102/63 Pulse: 109 Resp: 15 Temp: 37.2 ??C (98.9 ??F) SpO2: 99% Physical Exam: General: Awake and alert. NAD psych: mood and affect normal. CVS: S1 S2 Ext: no pedal edema. Right knee immobilizer in place. Right hip white dressing saturated with blood PUL: CTA BL GI: BS present. ND NT Skin: no cyanosis LAB RESULTS HEMATOLOGY Lab Results Component Value Date WBC 10.0 05/06/2025 HGB 6.8 (L) 05/06/2025 HCT 22.2 (L) 05/06/2025 MCV 99.1 (H) 05/06/2025 PLT 304 05/06/2025 CHEMISTRY Lab Results Component Value Date GLUCOSE 142 (H) 05/06/2025 NA 139 05/06/2025 K 4.6 05/06/2025 CO2 29 05/06/2025 CL 103 05/06/2025 BUN 23 05/06/2025 CREATININE 0.80 05/06/2025 EGFR 74 05/06/2025 CALCIUM 8.7 05/06/2025 MG 1.9 05/04/2025 PHOS 3.5 05/04/2025 ANIONGAP 7 05/06/2025 ASSESSMENT & PLAN 84-year-old female with PMH of A-fib on Eliquis, HTN, COPD, CHF/Takotsubo cardiomyopathy among others who presented with right leg pain. Patient recently suffered right hip femur fracture and was treated with total hip replacement. Postoperatively she had seroma/hematoma which required I&D which was not infected. Subsequently she was at the rehab but while undergoing PT developed severe pain and was found to have periprosthetic fracture of the right femur in the area of distal screw hole ofthe plate. Therefore patient was brought to the hospital and orthopedic surgical team was consulted. - Periprosthetic right distal femur fracture. S/p removal of previous hardware, ORIF of Right distal femur with intramedullary and lateral lockedplating. POD 1. Pain seems to be controlled presently Noted that pt was started on Lovenox. 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 To keep in mind ABLA and some bloody saturation of post op dressings. - ABLA. With underlying chronic anemia. Getting 1 PRBC. -Chronic atrial fibrillation with secondary hypercoagulable state. Eliquis remains on hold. On metoprolol and heart rate is controlled. -History of Takotsubo's cardiomyopathy/chronic systolic heart failure. Previous echo on November 2024 with EF 40 to 45%. -HTN. Lisinopril was discontinued during last admission. BP low d/t ABLA. Hold metoprolol for low BP. -Depression and anxiety. On paroxetine. -Dyslipidemia. On statin -Glaucoma. On eyedrops DVT prophylaxis: as above. Postoperative chemical prophylaxis as per orthopedic surgical team CODE STATUS: Full code Disposition: Transition to rehab once okay from ortho standpoint. * Anushka Hou RN - 05/06/2025 3:37 PM EST JEFF 05/08 Barrier- ORIF on 05/05, anemia, hypotensive requiring bl transfusion Plan return to [facility] hold * Anne Spear OT - 05/06/2025 2:43 PM EST [facility] Occupational Therapy Evaluation DATE: Tuesday May 06, 2025 TIME IN: 1245 TIME OUT: 1315 Pt: Isabella Díaz ROOM: 540/540-1 Discharge Recommendation: Inpatient Rehab Equipment Recommendation: walker Staff recommendations for safe patient handling: Mod assist Modified [place] Scale Score: 0=No symptoms Assessment: Patient is a 84 y.o. female presenting for OT evaluation following admission due to periprosthetic fx around prosthetic joint now s/p ORIF with WBAT to RLE. During today's skilled acute care OT evaluation, pt demonstrated the following deficits: decreased functional mobility, impaired indep with self care and pain. Pt currently requires assistance for ADLs and physical assistance for functional transfers/mobility. Pt will continue to benefit from skilled acute care OT services this admission to facilitate improvements in the areas of deficit listed above and to progress toward their PLOF with ADLs and IADLs. OT Time Calculation OT Start Time: 1245 OT Stop Time: 1315 OT Time Calculation (min): 30 min History of Present Illness: Patient is a 84 y.o. female admitted to [facility] on 05/01/2025. Occupational Therapy evaluation and treatment ordered to assess ADL independence, safety, and functional mobility for discharge planning. Problem List[1] Medical History[2] Surgical History[3] Subjective Pt states that she is going to purchase a flexible sock aid. Patient agreeable to engage in OT evaluation and treatment. Objective Patient was identified by name and x2. Hearing: Intact Speech: Intact Vision: Vision: Not tested [employer] Operator [employer] Is an sample taker operator used? : No - 05/06/25 1245 OT Last Visit OT Received On 05/06/25 General Family/Caregiver Present No OT Time Calculation OT Start Time 1245 OT Stop Time 1315 OT Time Calculation (min) 30 min Precautions Medical Precautions Fall Risk Safety Interventions Call cabrera within reach;ID band on (Pt using bedside commode on arrival for OT evaluation) RUE Weight Bearing Status Full LUE Weight Bearing Status Full RLE Weight Bearing Status As Tolerated LLE Weight Bearing Status Full Orthopedic Precautions (avoid excessive ROM, abd wedge when in bed, use of hinged knee brace) Vital Signs Patient Identification Yes Oxygen Therapy Oxygen Therapy None (Room air) Pain Assessment Pain Assessment 0-10 Pain Score 3 Pain Type Surgical pain Pain Location Hip Pain Orientation Right Home Living Type of Home House Lives With Alone Home Adaptive Equipment Walker - rolling Home Layout One level;Laundry main level Home Access Stairs to enter with rails Entrance Stairs-Rails Rail on the left going up Entrance Stairs-Number of Steps 3 Bathroom Shower/Tub Walk-in shower Bathroom Toilet Standard (pt does have a raised toilet seat) Bathroom Equipment Grab bars in shower;Hand-held shower hose;Raised toilet seat with rails;Shower chair with back Bathroom Accessibility 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 Yes Mode of Transportation Car Which is your dominant hand? Right ADL/IADL History ADL Assistance (Self Care) Independent Homemaking Assistance (Functional Cognition) Independent ADL Eating Assistance Independent Grooming Assistance Setup Oral Hygiene Assistance Setup Bathing Assistance Moderate assistance UE Dressing Assistance Setup;Supervision LE Dressing Assistance Maximum assistance Footwear Assistance Maximum assistance Toileting Assistance Moderate assistance Bed Mobility Sitting to Lying Assistance Minimum assistance Functional Transfers Sit to Stand Assistance Minimum assistance Chair/Bed to Chair/Bed Assistance Minimum assistance Functional Mobility Walking Assistance Minimum assistance Device Rolling walker Static Sitting Balance Static Sitting-Level of Assistance Supervision Dynamic Sitting Balance Dynamic Sitting-Level of Assistance Standby assistance Static Standing Balance Static Standing-Level of Assistance Minimum assistance Dynamic Standing Balance Dynamic Standing-Level of Assistance Minimum assistance Cognition Orientation Level Oriented X4 Following Commands Follows all commands and directions without difficulty Proprioception Proprioception No apparent deficits Sensation Light Touch No apparent deficits Hand Function Gross Grasp Functional Hand Function Description pt noted to have tenosynovitis of right digits RF and SF Coordination Coordination Functional RUE Assessment RUE Assessment Within Functional Limits LUE Assessment LUE Assessment Within Functional Limits RLE Assessment RLE Assessment Impaired RLE Assessment Comments avoid excessive ROM, WBAT, LLE Assessment LLE Assessment Within Functional Limits OT Assessment OT Assessment Results Decreased ADL status;Decreased functional mobility;Decreased IADLs Prognosis Good Evaluation/Treatment Tolerance Patient tolerated treatment well Plan Treatment Interventions ADL retraining;Functional transfer training OT Plan Skilled OT OT Frequency 2-5 days per week OT Duration of Sessions 30-60 min per session OT Treatments per day 1 time per day OT - Evaluation Status Complete OT Discharge Recommendations Inpatient rehab facility placement Equipment Recommended (TBD) OT Evaluation Time Entry OT Evaluation (Moderate) Time Entry 30 AM-PAC 6 Clicks Occupational Therapy Scoring Form: Unable: 1 A Lot: 2 A Little: 3 None: 4 How much help from another person does the patient currently need? Putting on and taking off regular lower body clothing [] [x] [] [] Bathing (including washing, rinsing and drying) [] [x] [] [] Toileting, which includes using toilet, bed tomas, or urinal [] [x] [] [] Putting on and taking off regular upper body clothing [] [] [x] [] Personal grooming such as brushing teeth [] [] [] [x] Eating meals [] [] [] [x] Score: 1724 Score indicates pt would benefit from rehab post acute hospitalization. *Score of 18 and below indicates rehab is needed* *Score of over 18 indicates pt is safe to discharge home* ADDITIONAL COMMENTS: Chart reviewed. RN clears pt for session. Pt agrees to participate and received on toilet and tray table and call light within reach. All lines in place. No family or guests present during session. Medical precautions observed appropriately. Initiated education on Role of OT, Transfer Safety, WB Status, Hip Precautions, ADL Techniques and Safety , Discharge Recommendation, Safety with AD, and importance of OOB activity . Pt needs reinforcement for carry over. EXIT STATUS: Session ended with patient supine with HOB elevated, bed alarm activated, tray table and call lightwithin reach, and RN made aware. Needs in reach. RN made aware. OT Goals Pt seen for OT eval and treatment session to assess ADL and functional status. See above for details of evaluation/treatment session. OT Assessment OT Assessment Results: Decreased ADL status, Decreased functional mobility, Decreased IADLs Prognosis: Good Evaluation/Treatment Tolerance: Patient tolerated treatment well Plan Treatment Interventions: ADL retraining, Functional transfer training OT Plan: Skilled OT OT Frequency : 2-5 days per week OT Duration of Sessions: 30-60 min per session OT Treatments per day: 1 time per day OT - Evaluation Status: Complete OT Discharge Recommendations: Inpatient rehab facility placement Equipment Recommended: (TBD) Encounter Problems Encounter Problems (Active) Template: Occupational Therapy Problem: OT Short Term Goals Dates: Start: 05/06/25 Goal: Pt will be able to perform transfers bed to chair using FWW with SBA of OT Dates: Start: 05/06/25 Expected End: 05/13/25 Goal: Pt will be able to perform toileting tasks including clothing management and hygiene with SBAfrom OT Dates: Start: 05/06/25 Expected End: 05/13/25 Goal: Pt will be able to tolerate standing at sink to perform oral hygiene with SBA from OT Dates: Start: 05/06/25 Expected End: 05/13/25 Encounter Problems (Resolved) There are no resolved problems. Education Documentation Precautions, taught by Anne Spear OT at 05/06/2025 2:41 PM. Learner: Patient Readiness: Eager Method: Explanation, Demonstration Response: Verbalizes Understanding, Needs Reinforcement Comment: Pt reviewed use of AE including experience designer and sock aid as well as long shoe horn and dressing stick. Emphasized avoiding excessive ROM ADL Training, taught by Anne Spear OT at 05/06/2025 2:41 PM. Learner: Patient Readiness: Eager Method: Explanation, Demonstration Response: Verbalizes Understanding, Needs Reinforcement Comment: Pt reviewed use of AE including experience designer and sock aid as well as long shoe horn and dressing stick. Emphasized avoiding excessive ROM Education Comments No comments found. Anne Spear OT [1] Patient Active Problem List Diagnosis Atrial fibrillation ([facility], [facility]) CHF (congestive heart failure) ([facility], [facility]) Collagenous colitis Depression HTN (hypertension) Mitral valve regurgitation Takotsubo cardiomyopathy C. 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 S/P right hip fracture Closed displaced subtrochanteric fracture of right femur ([facility], [facility]) Bleeding from right hip wound Atrial fibrillation with rapid ventricular response ([facility], [facility]) Moderate malnutrition ([facility]) Periprosthetic fracture around prosthetic joint, initial encounter Other closed fracture of distal end of right femur, initial encounter ([facility], [facility]) Sharron-prosthetic fracture of femur at tip of prosthesis [2] Past Medical History: Diagnosis Date Atrial fibrillation ([facility], [facility] V28) 01/17/2021 DX:Atrial fibrillation ([facility]) CHF (congestive heart failure) ([facility] V24, [facility] V28) 01/17/2021 DX:CHF (congestive heart failure) ([facility]) Clostridium difficile diarrhea 03/26/2024 DX:Clostridium difficile diarrhea Depression 01/17/2021 DX:Depression Hypertension NSTEMI (non-ST elevated myocardial infarction) ([facility]24, [facility] V28) 01/17/2021 DX:NSTEMI (non-ST elevated myocardial infarction) ([facility]); COMMENT: 12/2020 Dr Eller, holter monitor and cardiac cath as outpt. NSTEMI (non-ST elevated myocardial infarction) ([facility] V[facility], [facility] V28) 01/17/202112/2020 Dr Eller, holter monitor and cardiac cath as outpt. Pubic ramus fracture (CMS/HCC V24, CMS/HCC V28) 11/30/2021 DX:Pubic ramus fracture (HCC) Takotsubo cardiomyopathy 01/17/2021 DX:Takotsubo cardiomyopathy [3] Past Surgical History: Procedure Laterality Date JOINT REPLACEMENT OTHER SURGICAL HISTORY PROCEDURE: HISTORICAL MITRAL VALVE REPL OTHER SURGICAL HISTORY PROCEDURE: HISTORY OTHER; COMMENT: right humerus fracture TONSILLECTOMY PROCEDURE: HISTORICAL TONSILLECTOMY * Emperatriz Hussein RN - 05/06/2025 10:32 AM EST Goals: Identify possible barriers to meeting goals/advancing plan of care: h/h trending down, I unit prbc,pending snf placement Stability of the patient: Moderately Stable - Low risk of patient condition declining or worsening End of Shift Summary: * BURAK Urbina - 05/06/2025 8:39 AM EST Orthopedic Trauma Progress Note CHIEF COMPLAINT Postop follow up SURGERY ORIF right femur on 05-05-[address] Baeza ASSESSMENT/PLAN Patient is postop day 1 status post ORIF right femur by Dr. Baeza. Patient is stable. Patient has acute on chronic anemia in the setting of being postop and would benefit from transfusion. - Weightbearing: Continue weightbearing as tolerated on affected extremity with walker protection - Activity: Encourage out of bed with fall risk protocol; continue foot and ankle pumps while resting; do not push right hip past comfort, may flex to 90 degrees while sitting - Therapy: Continue PT/OT - Pain control: Continue current regimen; apply ice to affected area as needed - Dressing/wound care/DME: Dressing should remain clean and dry; nursing may reinforce as needed - Misc: Continue IS; appreciate medical team management of comorbidities - Labs: Continue to trend H/H after the transfusion - ABX: Continue IV Cefazolin for a total of 3 doses postop - DVT prophylaxis: Pneumatic compression stockings; per primary team while inpatient, consider Lovenox SQ 40 mg daily; on discharge, PO ASA 81 mg BID for 6 weeks from surgery - Dispo: Anticipate discharge to rehab when medically appropriate SUBJECTIVE Overnight: No overnight events reported. Patient states she is generally doing well. States that the pain is well- controlled. Patient deniesnumbness and paresthesias. OBJECTIVE Vitals: 05/06/25 0759 BP: 90/55 Pulse: 95 Resp: 16 Temp: 36.8 ??C (98.2 ??F) SpO2: 95% General: Alert and cooperative, lying comfortably in bed, in no acute distress HEENT: Normocephalic and atraumatic Pulmonary: No increased work of breathing appreciated and able to speak in full sentences Musculoskeletal: Right lower extremity- hinged knee brace in place, dressing about hip has proximalsanguinous staining but is otherwise clean/dry/intact, fires EHL/FHL, dorsiflexion/plantarflexion intact, sensation intact distally, appears well-perfused Skin: Generally normal tone, dry, warm Lab Results Component Value Date WBC 10.0 05/06/2025 HGB 6.8 (L) 05/06/2025 HCT 22.2 (L) 05/06/2025 PLT 304 05/06/2025 Lab Results Component Value Date NA 139 05/06/2025 K 4.6 05/06/2025 CL 103 05/06/2025 BUN 23 05/06/2025 CREATININE 0.80 05/06/2025 GLUCOSE 142 (H) 05/06/2025 CALCIUM 8.7 05/06/2025 Lab Results Component Value Date CRP 10.90 (H) 04/09/2025 No results found for: HGBA1C Lab Results Component Value Date PT 13.8 05/04/2025 Patient seen with and above agreed to by Dr. Baeza. Honorio Jean-Baptiste PA-C * Herlinda Villagran, PT - 05/06/2025 8:25 AM EST [facility] Physical Therapy Evaluation & Treatment PT Discharge Recommendations: Inpatient rehab facility placement Staff Recommendations for safe patient handling: bed mobility, transfers, assist x 2 , wbat on r, hinge knee brace Modified Sanjana Scale Score: 4=Moderately severe disability. Unable to attend to own bodily needs without assistance or unable to walk unassisted. AM-PAC 6 Clicks Scoring Form: Unable: 1 A Lot: 2 A Little: 3 None: 4 How much difficulty does the patient currently have? Turning over in bed (including adjustment of bedclothes, sheets, and blankets) [x] [] [] [] Sitting down on and standing up from a chair with arms (wheelchair, bedside commode etc [] [x] [] [] Moving from lying on back to sitting on the side of the bed [] [x] [] [] How much help from another person does the patient currently need? Moving to and from a bed to a chair ( including a wheelchair) [] [x] [] [] To walk in hospital room [] [] [x] [] Climbing 3-5 steps with a railing [x] [] [] [] Score: score indicates the pt would benefit from STR after acute discharge Precautions Medical Precautions: Fall Risk Safety Interventions: Call cabrera within reach, Personal alarm on, ID band on, Bed alarm, Chair alarm RUE Weight Bearing Status: Full LUE Weight Bearing Status: Full RLE Weight Bearing Status: As Tolerated LLE Weight Bearing Status: Full Orthopedic Precautions: (P) Other (Comment) (avoid excessive ROM) Orthoses Applied: (abductor pillow in bed) Prosthesis/Orthosis Used: (P) KAFO (hinge knee) Fall prevention education provided including use of call light in hospital, use of appropriate assistive device, safe mobility techniques, and safety measures at home. PT Received On: 05/06/25 PT Start Time: 824 PT Stop Time: 0900 PT Time Calculation (min): 35 min General Family/Caregiver Present: No Precautions Medical Precautions: Fall Risk Safety Interventions: Call cabrera within reach, Personal alarm on, ID band on, Bed alarm, Chair alarm RUE Weight Bearing Status: Full LUE Weight Bearing Status: Full RLE Weight Bearing Status: As Tolerated LLE Weight Bearing Status: Full Orthopedic Precautions: (P) Other (Comment) (avoid excessive ROM) Orthoses Applied: (abductor pillow in bed) Prosthesis/Orthosis Used: (P) KAFO (hinge knee) Cognition Overall Cognitive Status: Within Functional Limits Following Commands: Follows all commands and directions without difficulty Hearing: Intact Vision: Intact Speech: Intact Integumentary: s/p R hip surgery History of Present Illness: Patient is a 84 y.o. female admitted to [facility] on 05/01/2025. Problem List[1] Medical History[2] Surgical History[3] Social History Home Living Environment: Home Living Type of Home: House Lives With: Alone Home Adaptive Equipment: Walker - rolling, Raised toilet seat, Shower chair, Leg shellfish farming supervisor, Sock aid, Banquet Captain (Rollator,recliner) Home Layout: One level, Laundry main level, Full bath main level, Able to live on main level with bedroom/bathroom Home Access: Stairs to enter with rails Entrance Stairs-Rails: Rail on the left going up Entrance Stairs-Number of Steps: 3 Bathroom Shower/Tub: Walk-in shower Bathroom Toilet: Standard Prior Function Level of [place]: Independent with mobility and functional transfers Ambulation Status: Household ambulator, Community ambulator Receives Help From: Family Indoor Mobility Assistance: Independent Stairs Assistance : Independent Prior Device Use: Walker Do you drive?: Yes Which is your dominant hand?: Right 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 : No 05/06/25 0825 PT Last Visit PT Received On 05/06/25 General Family/Caregiver Present No PT Time Calculation PT Start Time 0825 PT Stop Time 0900 PT Time Calculation (min) 35 min Precautions Medical Precautions Fall Risk Safety Interventions Call cabrera within reach;Personal alarm on;ID band on;Bed alarm;Chair alarm RUE Weight Bearing Status Full LUE Weight Bearing Status Full RLE Weight Bearing Status As Tolerated LLE Weight Bearing Status Full Orthopedic Precautions Other (Comment) (avoid excessive ROM) Orthoses Applied (abductor pillow in bed) Prosthesis/Orthosis Used KAFO (hinge knee) Oxygen Therapy Oxygen Therapy None (Room air) O2 Delivery Method Nasal cannula Pain Assessment Pain Assessment 0-10 Pain Score 8 Pain Type Surgical pain Pain Location Hip Pain Orientation Right Pain Frequency Intermittent Cognition Overall Cognitive Status WFL Following Commands Follows all commands and directions without difficulty Home Living Type of Home House Lives With Alone Home Adaptive Equipment Walker - rolling;Raised toilet seat;Shower chair;Leg shellfish farming supervisor;Sock aid;Banquet Captain (Rollator,recliner) Home Layout One level;Laundry main level;Full bath main level;Able to live on main level with bedroom/bathroom Home Access Stairs to enter with rails Entrance Stairs-Rails Rail on the left going up Entrance Stairs-Number of Steps 3 Bathroom Shower/Tub Walk-in shower Bathroom Toilet Standard Prior Function Level of [place] Independent with mobility and functional transfers Ambulation Status Household ambulator;Community ambulator Receives Help From Family Indoor Mobility Assistance Independent Stairs Assistance Independent Prior Device Use Walker Do you drive? Yes Which is your dominant hand? Right Activity Tolerance Endurance Tolerates 10 - 20 min exercise with multiple rests Sensation Light Touch No apparent deficits Proprioception Proprioception No apparent deficits Coordination Coordination Functional Postural Control Postural Control WFL Static Sitting Balance Static Sitting-Level of Assistance Close supervision Dynamic Sitting Balance Dynamic Sitting-Level of Assistance Minimum assistance Dynamic Sitting-Balance Support Right upper extremity supported;Left upper extremity supported Static Standing Balance Static Standing-Level of Assistance Contact guard Static Standing-Balance Support Right upper extremity supported;Left upper extremity supported Dynamic Standing Balance Dynamic Standing-Level of Assistance Minimum assistance Dynamic Standing-Balance Ambulation Dynamic Standing-Balance Support Right upper extremity supported;Left upper extremity supported Bed Mobility Sitting to Lying Assistance Maximum assistance Sitting to Lying Deficit Verbal cueing;Supervision/safety awareness;Increased time to complete;Assist lifting left leg onto bed;Assist lifting right leg onto bed;Assist to lower upper body onto bed;Assist to position upper body Lying to Sitting Assistance Moderate assistance Lying to Sitting Deficit Verbal cueing;Supervision/safety awareness;Increased time to complete;Assist lifting left leg off of bed;Assist lifting right leg off of bed;Assist to push upper body to upright;Assist to scoot to edge of bed Transfers Sit to Stand Assistance Moderate assistance Sit to Stand Deficit Steadying;Verbal cueing;Supervision/safety awareness;Increased time to complete;Assist for foot placement;Assist for lift off Chair/Bed to Chair/Bed Transfer Assistance Maximum assistance (commode) Chair/Bed to Chair/Bed Transfer Deficit Steadying;Verbal cueing;Supervision/safety awareness;Increased time to complete;Assist for foot placement;Assist for trunk control;Assist for weight shifting Ambulation Walking Assistance Minimum assistance Walking Deficit Steadying;Verbal cueing;Supervision/safety awareness;Increased time to complete;Assist for foot placement;Assist for trunk control;Assist for weight shifting;Limited endurance;Impaired balance;LE weakness Device Rolling walker Distance Ambulated (ft) 3 Comments pt ambulated with rwalker, wbat on r, r hinge knee brace, vcs to offload RLE in stance by increased hand support, adjustedrwalker lower for improved ue support; pt ambulated 3 ft to commode,min assist, vcs for 3 point gait pattern; she sat down on commode, mod assist for graded control tosit; She needed mod assist to stand, and took a few steps, before losing balance backwared requiring max assist to regain balance. Stairs 1 step (curb): Assistance Not attempted, medical/safety concerns RUE Assessment RUE Assessment Within Functional Limits LUE Assessment LUE Assessment Within Functional Limits RLE Assessment RLE Assessment Impaired RLE Assessment Comments impaired s/p thr, then distal femoral fx,s/p ORIF, avoid excessive ROM, wbat; no longer ant hip precautions LLE Assessment LLE Assessment Within Functional Limits PT Assessment PT Assessment Results Decreased strength;Decreased range of motion;Decreased endurance;Impaired balance;Impaired gait;Decreased mobility;Decreased skin integrity;Orthopedic restrictions;Pain Prognosis Good Evaluation/Treatment Tolerance Patient tolerated treatment well Medical Staff Made Aware Yes Plan Treatment/Interventions Functional transfer training;LE strengthening/ROM;Endurance training;Patient/family training;Equipment eval/education;Bed mobility;Gait training;Compensatory technique educatio n;Continued evaluation;Balance training;Stair training PT Plan Skilled PT PT Treatments per day 1-2 times per day PT Discharge Recommendations Inpatient rehab facility placement Equipment Recommended Walker - rolling;Raised toilet seat;Shower chair;Sock aid;Banquet Captain PT - Evaluation Status Complete PT Evaluation Time Entry PT Evaluation (Moderate) Time Entry 35 ADDITIONAL COMMENTS: Chart reviewed. RN clears pt for session. Pt agrees to participate and presented in supine upon PT arrival. Initiated education on the importance of PT, bed mobility safety, Transfer Safety, Ambulation Safety , Therapy Plan of Care, Home Safety, Energy Conservations strategies, and importance of OOB activity . Pt verbalized understanding. EXIT STATUS: Session ended with patient supine, tray table and call light within reach, and RN made aware. Physical Therapy Assessment/Plan Isabella Díaz is a 84 y.o. female admitted to [facility] on 05/01/2025 for Periprosthetic fracture around prosthetic joint, initial encounter [M97.9XXA] Other closed fracture of distal end of right femur, initial encounter ([facility] V24, [facility] V28) [S72.134D] . Pt presents with decreased ROM and RLE strength, balance deficits, decreased activity tolerance, pain , unsteady abnormal gait far below functional baseline. Pt will benefit from skilled acute PT during hospital stay to improve the deficits listed above and optimize function. PT recommends Inpatient rehab facility placement when medically stable for safe discharge and to optimize functional mobility and independence. Goals Encounter Problems Encounter Problems (Active) Template: Physical Therapy Problem: PT Short Term Goals Dates: Start: 05/06/25 Goal: Patient will ambulate with rwalker, hingeknee brace, wbat, stand by assist Dates: Start: 05/06/25 Expected End: 05/12/25 Goal: Patient will ambulate with rwalker, hinge knee brace, wbat, x 50 ft, stand by assist Dates: Start: 05/06/25 Expected End: 05/13/25 Goal: Patient will be able to safely negotiate 5 stairs with 1 rail, min assist Dates: Start: 05/06/25 Expected End: 05/13/25 Encounter Problems (Resolved) There are no resolved problems. Education Documentation Explain information regarding therapeutic regimen, taught by Herlinda Villagran PT at 05/06/2025 10:04 AM. Learner: Patient Readiness: Acceptance Method: Explanation Response: Verbalizes Understanding Comment: educated pt on wbat, use of hinge knee brace, avoid excessive hip/knee rom, POC and dc recommendation for str Teach information regarding safety precautions, taught by Herlinda Villagran PT at 05/06/2025 10:04 AM. Learner: Patient Readiness: Acceptance Method: Explanation Response: Verbalizes Understanding Comment: educated pt on wbat, use of hinge knee brace, avoid excessive hip/knee rom, POC and dc recommendation for str Teach proper use of assistive devices, taught by Herlinda Villagran PT at 05/06/2025 10:04 AM. Learner: Patient Readiness: Acceptance Method: Explanation Response: Verbalizes Understanding Comment: educated pt on wbat, use of hinge knee brace, avoid excessive hip/knee rom, POC and dc recommendation for str Education Comments No comments found. Herlinda Villagran, PT [1] Patient Active Problem List Diagnosis Atrial fibrillation ([facility]24, [facility] V28) CHF (congestive heart failure) ([facility] V[facility], [facility] V28) Collagenous colitis Depression HTN (hypertension) Mitral valve regurgitation Takotsubo cardiomyopathy C. 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 S/P right hip fracture Closed displaced subtrochanteric fracture of right femur ([facility] V[facility], [facility] V28) Bleeding from right hip wound Atrial fibrillation with rapid ventricular response ([facility] V[facility], [facility] V28) Moderate malnutrition ([facility] V24) Periprosthetic fracture around prosthetic joint, initial encounter Other closed fracture of distal end of right femur, initial encounter ([facility] V[facility], [facility] V[facility]) Sharron-prosthetic fracture of femur at tip of prosthesis [2] Past Medical History: Diagnosis Date Atrial fibrillation ([facility] V[facility], [facility] V[facility]) 01/17/2021 DX:Atrial fibrillation ([facility]) CHF (congestive heart failure) ([facility] V[facility], [facility] V[facility]) 01/17/2021 DX:CHF (congestive heart failure) ([facility]) Clostridium difficile diarrhea 03/26/2024 DX:Clostridium difficile diarrhea Depression 01/17/2021 DX:Depression Hypertension NSTEMI (non-ST elevated myocardial infarction) ([facility] V[facility], [facility] V28) 01/17/2021 DX:NSTEMI (non-ST elevated myocardial infarction) ([facility]); COMMENT: 12/2020 Dr Eller, holter monitor and cardiac cath as outpt. NSTEMI (non-ST elevated myocardial infarction) ([facility] V[facility], [facility] V28) 01/17/202112/2020 Dr Eller, holter monitor and cardiac cath as outpt. Pubic ramus fracture ([facility] V[facility], [facility] V[facility]) 11/30/2021 DX:Pubic ramus fracture ([facility]) Takotsubo cardiomyopathy 01/17/2021 DX:Takotsubo cardiomyopathy [3] Past Surgical History: Procedure Laterality Date JOINT REPLACEMENT OTHER SURGICAL HISTORY PROCEDURE: HISTORICAL MITRAL VALVE REPL OTHER SURGICAL HISTORY PROCEDURE: HISTORY OTHER; COMMENT: right humerus fracture TONSILLECTOMY PROCEDURE: HISTORICAL TONSILLECTOMY * Tiffany Mcmanus RN - 05/06/2025 5:00 AM EST Problem: Sensory: Acute Pain Goal: Pain level will improve or be tolerable Outcome: Progressing Goal: Ability to develop a pain control plan will improve Outcome: Progressing Problem: Cognitive: Grover Marv Fall Risk Goal: Mobility requiring assistance of person or device Outcome: Progressing Problem: Physical Regulation: Periop Procedure - Major Goal: Postoperative complications will be avoided or minimized Outcome: Progressing Goal: Ability to maintain clinical measurements within normal limits will improve Outcome: Progressing Problem: Activity: Physical Mobility Impairment Goal: Ability to ambulate will improve Outcome: Progressing Goal: Range of joint motion will be supported Outcome: Progressing Problem: Cognitive: Skin Integrity Impairment Goal: Knowledge of the prescribed therapeutic regimen will improve Outcome: Progressing Problem: Nutritional: Skin Integrity Impairment Goal: Dietary intake will improve Outcome: Progressing Problem: Self-Care: Skin Integrity Impairment Goal: Compliance with treatment plan for underlying cause of condition will improve Outcome: Progressing Problem: Patient Specific Problem: Skin Integrity Impairment Goal: Patient Specific Outcome Outcome: Progressing Problem: Skin Integrity: Pressure Injury Actual or Risk of Goal: Will not develop new pressure injury Outcome: Progressing Goal: Skin integrity will improve Outcome: Progressing Goal: Risk for impaired skin integrity will decrease Outcome: Progressing Problem: Activity:Pressure Injury Actual or Risk of Goal: Mobility will improve Outcome: Progressing Problem: Nutritional:Pressure Injury Actual or Risk of Goal: Nutritional status will improve Outcome: Progressing Problem: Patient Specific Problem: Pressure Injury Actual or Risk of Goal: Patient Specific Outcome Outcome: Progressing Problem: Skin Integrity: Pressure Injury Actual or Risk of Goal: Will not develop new pressure injury Outcome: Progressing Goal: Skin integrity will improve Outcome: Progressing Goal: Risk for impaired skin integrity will decrease Outcome: Progressing Goals: Identify possible barriers to meeting goals/advancing plan of care: Stability of the patient: Moderately Stable - Low risk of patient condition declining or worsening End of Shift Summary: patient safety and comfort maintained. Pain medicated with prn meds. Patient out of bed with 2 assist to the commode voiding well with minimal PVR. Fluids D/C. On iV antibiotics. Dressing staining noted, re enforced. Hinge brace intact. Resting calmly. Bed alarm on. * Mecca Barrios MD - 05/05/2025 4:52 PM EST Images from the original note were not included. IMAN PROGRESS NOTE Date: 05/05/2025 Author: Mecca Barrios MD Patient ID: Isabella Díaz is a 84 y.o. female : 1940 MR#: [id number] SUBJECTIVE CC: Follow-up right femoral fracture Seen post op. No significant pain issues. No nausea. ROS: No sob or chest pain No nausea or vomiting. OBJECTIVE Vitals: Vitals: 05/05/25 1633 BP: 108/73 Pulse: 101 Resp: 16 Temp: 36.9 ??C (98.5 ??F) SpO2: 100% Physical Exam: General: Awake and alert. Not in distress. Appears comfortable. Psych: mood and affect normal. CVS: S1 S2 Ext: no pedal edema. Right knee immobilizer in place. Right hip white dressing in place. PUL: CTA BL GI: BS present. ND NT Skin: no cyanosis LAB RESULTS HEMATOLOGY Lab Results Component Value Date WBC 7.1 05/05/2025 HGB 8.8 (L) 05/05/2025 HCT 28.7 (L) 05/05/2025 MCV 98.3 (H) 05/05/2025 PLT 299 05/05/2025 CHEMISTRY Lab Results Component Value Date GLUCOSE 85 05/05/2025 NA 141 05/05/2025 K 4.3 05/05/2025 CO2 31 05/05/2025 CL 107 05/05/2025 BUN 20 05/05/2025 CREATININE 0.71 05/05/2025 EGFR 85 05/05/2025 CALCIUM 8.1 (L) 05/05/2025 MG 1.9 05/04/2025 PHOS 3.5 05/04/2025 ANIONGAP 3 05/05/2025 ASSESSMENT & PLAN 84-year-old female with PMH of A-fib on Eliquis, HTN, COPD, CHF/Takotsubo cardiomyopathy among others who presented with right leg pain. Patient recently suffered right hip femur fracture and was treated with total hip replacement. Postoperatively she had seroma/hematoma which required I&D which was not infected. Subsequently she was at the rehab but while undergoing PT developed severe pain and was found to have periprosthetic fracture of the right femur in the area of distal screw hole ofthe plate. Therefore patient was brought to the hospital and orthopedic surgical team was consulted. - Periprosthetic right distal femur fracture. S/p removal of previous hardware, ORIF of Right distal femur with intramedullary and lateral lockedplating. POD 0. Pain seems to be controlled presently Eliquis remains on hold and resume once cleared from orthopedic surgical team. -Chronic anemia. Stable. -Chronic atrial fibrillation with secondary hypercoagulable state. Eliquis remains on hold. On metoprolol and heart rate is controlled. -History of Takotsubo's cardiomyopathy/chronic systolic heart failure. Previous echo on November 2024 with EF 40 to 45%. -HTN. Lisinopril was discontinued during last admission. BP stable. Currently on metoprolol -Depression and anxiety. On paroxetine. -Dyslipidemia. On statin -Glaucoma. On eyedrops DVT prophylaxis: SCD boots Postoperative chemical prophylaxis as per orthopedic surgical team CODE STATUS: Full code Disposition: Transition to rehab once okay from ortho standpoint. * Mecca Barrios MD - 05/05/2025 3:57 PM EST [facility] Provider Response Note PATIENT: ISABELLA DÍAZ : 1940 ADMIT DATE: 05/02/2025 8:14 AM DISCH DATE: RESPONDING PROVIDER #: [id number] PROVIDER RESPONSE TEXT: The patient has severe, third degree malnutrition in chronic illness. QUERY TEXT: Malnutrition Severity with ASPEN Criteria Provider_TH Malnutrition is documented in the Medical Record. Please specify the severity, such as: Progress Notes 05/02/2025 (1) Protein calorie malnutrition IV thiamine Nutritional consult BMI (Calculated): 17.1 per EMR Nutritional consult states: Nutrition Diagnosis: Code Type: Severe-Chronic (E43) Severe-Chronic Criteria: Severe Body Fat Depletion, Severe Muscle Mass Depletion Status: New Diagnosis: Malnutrition Etiology: Changes in taste and appetite or preference, Physiologic causes Symptoms: Pt with moderate and severe muscle and fat losses to multilple regions per nutrition focused physical exam, ongoing weight loss per pt. Nutrition Interventions: Medical Food Supplement, Diet Order, Collaboration and Referral of Nutrition Care Will start Ensure Plus High Protein given suspected inadequate intake; adjust as needed on follow up. ASPEN Criteria ([place] [employer] for Parenteral and Enteral Nutrition), for reference. Moderate Malnutrition in Acute Illness -Energy Intake: < 75% of estimated energy requirement for > 7 days -Weight Loss: 1 - 2% /1 week; 5% /1 month; 7.5% /3 months -Other: mild body fat loss; mild muscle mass loss; mild fluid accumulation Severe Malnutrition in Acute Illness -Energy Intake: <= 50% of estimated energy requirement for >= 5 days -Weight Loss: > 2% /1 week; > 5% /1 month; > 7.5% /3 months -Other: moderate body fat loss; moderate muscle mass loss; moderate-severe fluid accumulation; measurably reduced spool worker strength Moderate Malnutrition in Chronic Illness -Energy Intake: < 75% of estimated energy requirement for >= 1 month -Weight Loss: 5% /1 month; 7.5% /3 months; 10% /6 months; 20% /1 year -Other: mild body fat loss; mild muscle mass loss; mild fluid accumulation Severe Malnutrition in Chronic Illness -Energy Intake: <= 75 of estimated energy requirement for >= 1 month -Weight Loss: > 5% /1 month; > 7.5% /3 months; >10% /6 months; >20% /1 year -Other: severe body fat loss; severe muscle mass loss; severe fluid accumulation; measurably reduced spool worker strength [phone] The patient's clinical indicators include: Options provided: -- Mild, first degree -- Moderate, second degree in acute illness -- Moderate, second degree in chronic illness -- Severe, third degree in acute illness -- Severe, third degree in chronic illness -- Severe malnutrition with marasmus -- Resulting from gastrointestinal surgery -- Retarded development following protein-calorie malnutrition -- Other - I will add my own diagnosis -- Disagree - Not applicable / Not valid Query created by: Ashlee Dubon on 05/05/2025 11:28 AM Electronically signed by: MECCA BARRIOS MD 05/05/2025 3:56 PM * Jose Elias Terry RN - 05/05/2025 11:46 AM EST Goals: Identify possible barriers to meeting goals/advancing plan of care: Stability of the patient: Moderately Unstable - Medium risk of patient condition declining or worsening End of Shift Summary: Problem: Sensory: Acute Pain Goal: Pain level will improve or be tolerable Outcome: Progressing * Kamilla Bermudez PT - 05/05/2025 7:59 AM EST Therapy session was attempted for Isabella Díaz by Kamilla Bermudez PT on 05/05/2025. The patient was unable to be seen for the following reason(s): Medically unstable/on Medical hold and Other: going to OR today will follow Plan for return visit: Later today for additional attempt * Mecca Barrios MD - 05/04/2025 3:35 PM EST Images from the original note were not included. IMAN PROGRESS NOTE Date: 05/04/2025 Author: Mecca Barrios MD Patient ID: Isabella Díaz is a 84 y.o. female : 1940 MR#: [id number] SUBJECTIVE CC: Follow-up right femoral fracture Patient reports controlled pain while at rest. More pronounced with moving in bed. She is scheduledfor surgery tomorrow on Sunday. ROS: No chest pain No shortness of breath No nausea OBJECTIVE Vitals: Vitals: 05/04/25 1511 BP: 127/70 Pulse: 87 Resp: 16 Temp: 36.7 ??C (98.1 ??F) SpO2: 95% Physical Exam: General: Awake and alert. NAD and appears comfortable. Psych: mood and affect normal. Pleasant. EYEs: no icterus. ENT: mmm CVS: S1 S2 Ext: no pedal edema. Right knee immobilizer in place. Right hip white dressing in place. No soakingseen. PUL: CTA BL GI: BS present. ND NT Skin: no cyanosis LAB RESULTS HEMATOLOGY Lab Results Component Value Date WBC 7.4 05/04/2025 HGB 8.4 (L) 05/04/2025 HCT 26.1 (L) 05/04/2025 MCV 96.3 05/04/2025 PLT 280 05/04/2025 CHEMISTRY Lab Results Component Value Date GLUCOSE 92 05/04/2025 NA 140 05/04/2025 K 3.8 05/04/2025 CO2 30 05/04/2025 CL 106 05/04/2025 BUN 14 05/04/2025 CREATININE 0.60 05/04/2025 EGFR 90 05/04/2025 CALCIUM 8.5 05/04/2025 MG 1.9 05/04/2025 PHOS 3.5 05/04/2025 ANIONGAP 4 05/04/2025 ASSESSMENT & PLAN 84-year-old female with PMH of A-fib on Eliquis, HTN, COPD, CHF/Takotsubo cardiomyopathy among others who presented with right leg pain. Patient recently suffered right hip femur fracture and was treated with total hip replacement. Postoperatively she had seroma/hematoma which required I&D which was not infected. Subsequently she was at the rehab but while undergoing PT developed severe pain and was found to have periprosthetic fracture of the right femur in the area of distal screw hole ofthe plate. Therefore patient was brought to the hospital and orthopedic surgical team was consulted. - Periprosthetic right distal femur fracture. N.p.o. after midnight and patient is scheduled for operative repair on Sunday. Eliquis remains on hold. Pain appears to be controlled. -Chronic anemia. Stable. Pt was treated with IV Iron. -Chronic atrial fibrillation with secondary hypercoagulable state. Eliquis remains on hold. On metoprolol and heart rate is controlled. -History of Takotsubo's cardiomyopathy/chronic systolic heart failure. Previous echo on November 2024 with EF 40 to 45%. -HTN. Lisinopril was discontinued during last admission. BP stable. Currently on metoprolol -Depression and anxiety. On paroxetine. -Dyslipidemia. On statin -Glaucoma. On eyedrops DVT prophylaxis: SCD boots Postoperative chemical prophylaxis as per orthopedic surgical team CODE STATUS: Full code * BURAK Miller - 05/04/2025 2:44 PM EST Orthopedic trauma surgery progress note for right periprosthetic distal femur fracture. Subjective Isabella is being seen today at bedside with Dr. Baeza. Found resting comfortably in bed. Reports right leg pain. No overnight events noted. Voiding independently. Tolerating p.o. diet. No other complaints at this time. Review of Systems: ROS: 10 point ROS was reviewed with patient, pertinent positive and negative results are noted in the HPI. Objective Vitals: 05/04/25 0741 BP: 132/79 Pulse: 99 Resp: 13 Temp: 37.1 ??C (98.7 ??F) SpO2: 94% Physical Exam: GENERAL: Well-appearing, calm, cooperative, nontoxic appearing, elderly female. In no acute distress. SKIN: Warm, dry. No rashes. HEENT: Normocephalic, atraumatic. CARDIAC: No peripheral edema. PULMONARY: No use of accessory muscles. : Deferred. MUSCULOSKELETAL: RUE: knee immobilizer in place. Neurovascularly intact distally. NEURO: Awake, alert and oriented X 3. PSYCHIATRIC: Normal affect. Scheduled Medications PRN Medications IV Medications atorvastatin, 20 mg, Nightly cholecalciferol, 50,000 Units, Weekly cholestyramine, 4 g, BID with meals dorzolamide, 1 drop, BID ferric gluconate, 125 mg, Daily latanoprost, 1 drop, Nightly metoprolol succinate, 25 mg, Daily PARoxetine, 20 mg, q AM polyetheylene glycol, 17 g, Nightly sodium chloride, 10 mL, BID thiamine, 200 mg, q24h acetaminophen, 650 mg, q6h PRN HYDROmorphone, 0.5 mg, q3h PRN naloxone, 0.04 mg, PRN ondansetron, 4 mg, q6h PRN oxyCODONE, 5 mg, q4h PRN sodium chloride, 10 mL, PRN Labs: Hematology Lab Results Component Value Date WBC 7.4 05/04/2025 HGB 8.4 (L) 05/04/2025 HCT 26.1 (L) 05/04/2025 MCV 96.3 05/04/2025 PLT 280 05/04/2025 Chemistry Lab Results Component Value Date GLUCOSE 92 05/04/2025 NA 140 05/04/2025 K 3.8 05/04/2025 CO2 30 05/04/2025 CL 106 05/04/2025 BUN 14 05/04/2025 CREATININE 0.60 05/04/2025 EGFR 90 05/04/2025 CALCIUM 8.5 05/04/2025 MG 1.9 05/04/2025 PHOS 3.5 05/04/2025 ANIONGAP 4 05/04/2025 Assessment Periprosthetic fracture around prosthetic joint, initial encounter Plan Antibiotics: IV Cefazolin to be given preop in the OR Analgesia: Continue scheduled acetaminophen and prn po narcotics. Minimize narcotics. Activity: NWB on RLE. Dressing should be kept clean dry and intact. Reinforce prn. Anticoagulation: Hold all chemical anticoagulation preop. Additional: Plan for surgery tomorrow for L LESLIE by Dr. Baeza. NPO at midnight. Patient seen and case discussed with Dr. Baeza, orthopedic surgery attending. BURAK Miller Orthopedic Surgery 05/04/2025 2:45 PM EST * Anushka Hou RN - 05/04/2025 1:46 PM EST JEFF 05/06 Barrier- ORIF on 05/05 Plan return to [facility] hold ICC following. * Jose Elias Terry RN - 05/04/2025 12:36 PM EST Goals: Identify possible barriers to meeting goals/advancing plan of care: Stability of the patient: Moderately Unstable - Medium risk of patient condition declining or worsening End of Shift Summary: Problem: Sensory: Acute Pain Goal: Ability to develop a pain control plan will improve Outcome: Progressing * Anne Spear OT - 05/04/2025 8:07 AM EST Therapy session was attempted for Isabella Díaz by Anne Spear OT on 05/04/2025. The patient was unable to be seen for the following reason(s): Other: Pt is awaiting surgery Plan for return visit: Other: will assess s/p surgery * Jenise Olvera RN - 05/04/2025 7:00 AM EST Problem: Sensory: Acute Pain Goal: Pain level will improve or be tolerable Outcome: Progressing Goal: Ability to develop a pain control plan will improve Outcome: Progressing Problem: Cognitive: Grover Marv Fall Risk Goal: Mobility requiring assistance of person or device Outcome: Not Progressing Problem: Physical Regulation: Periop Procedure - Major Goal: Postoperative complications will be avoided or minimized Outcome: Progressing Goal: Ability to maintain clinical measurements within normal limits will improve Outcome: Progressing Problem: Activity: Physical Mobility Impairment Goal: Ability to ambulate will improve Outcome: Not Progressing Goal: Range of joint motion will be supported Outcome: Not Progressing Problem: Skin Integrity: Skin Integrity Impairment Goal: Skin integrity will improve Outcome: Progressing Problem: Cognitive: Skin Integrity Impairment Goal: Knowledge of the prescribed therapeutic regimen will improve Outcome: Progressing Problem: Nutritional: Skin Integrity Impairment Goal: Dietary intake will improve Outcome: Progressing Problem: Self-Care: Skin Integrity Impairment Goal: Compliance with treatment plan for underlying cause of condition will improve Outcome: Progressing Problem: Patient Specific Problem: Skin Integrity Impairment Goal: Patient Specific Outcome Outcome: Progressing Problem: Skin Integrity: Pressure Injury Actual or Risk of Goal: Will not develop new pressure injury Outcome: Progressing Goal: Skin integrity will improve Outcome: Progressing Goal: Risk for impaired skin integrity will decrease Outcome: Progressing Problem: Activity:Pressure Injury Actual or Risk of Goal: Mobility will improve Outcome: Not Progressing Problem: Nutritional:Pressure Injury Actual or Risk of Goal: Nutritional status will improve Outcome: Progressing Problem: Patient Specific Problem: Pressure Injury Actual or Risk of Goal: Patient Specific Outcome Outcome: Progressing Goals: Pain control, patient safety, NPO after MN Identify possible barriers to meeting goals/advancing plan of care: awaiting surgery Stability of the patient: Moderately Stable - Low risk of patient condition declining or worsening End of Shift Summary: Pt medicated for pain with oxycodone 5mg with good relief. VS stable. NPO since MN. Bed alarm on. Call cabrera within reach. * Kim Norris RN - 05/03/2025 4:19 PM EST Goals: Identify possible barriers to meeting goals/advancing plan of care: await OR Stability of the patient: Moderately Stable - Low risk of patient condition declining or worsening End of Shift Summary: pt alert x 3. Vss. Pt medicated for pain with relief. Repositioned for comfort. Right leg immobolizer in place. Maintain skin/ fall risk precautions. * Kitty Castellanos MD - 05/03/2025 4:08 PM EST Images from the original note were not included. IMAN PROGRESS NOTE Date: 05/03/2025 Author: Kitty Castellanos MD Patient ID: Isabella Díaz is a 84 y.o. female : 1940 MR#: [id number] SUBJECTIVE Subjective chart and EMR reviewed events noted labs and imaging reviewed patient seen and examined in room 540 R thigh pain controlled at rest , gets worse with movement No fever No vomiting R knee in immobilizer Allergies Patient has no known allergies. Current Medications: Scheduled Medications PRN Medications IV Medications atorvastatin, 20 mg, Nightly cholecalciferol, 50,000 Units, Weekly cholestyramine, 4 g, BID with meals dorzolamide, 1 drop, BID ferric gluconate, 125 mg, Daily latanoprost, 1 drop, Nightly metoprolol succinate, 25 mg, Daily PARoxetine, 20 mg, q AM polyetheylene glycol, 17 g, Nightly sodium chloride, 10 mL, BID thiamine, 200 mg, q24h acetaminophen, 650 mg, q6h PRN HYDROmorphone, 0.5 mg, q3h PRN naloxone, 0.04 mg, PRN ondansetron, 4 mg, q6h PRN oxyCODONE, 5 mg, q4h PRN sodium chloride, 10 mL, PRN OBJECTIVE Vitals: 05/03/25 0328 05/03/25 0747 05/03/25 1526 05/03/25 1543 BP: 126/78 127/84 139/79 BP Location: Left arm Left arm Left arm Patient Position: Lying Lying Lying Pulse: 87 83 86 Resp: Temp: 37 ??C (98.6 ??F) 36.4 ??C (97.5 ??F) 36.6 ??C (97.8 ??F) TempSrc: Temporal Oral Temporal SpO2: 93% 97% 95% Weight: Height: BP: 139/79 (05/03 1526) Heart Rate: 86 (05/03 1526) Heart Rate Source: Monitor (05/01 1819) Temp: 36.6 ??C (97.8 ??F) (05/03 1526) Temp Source: Temporal (05/03 1526) SpO2: 95 % (05/03 1526) I/O last 3 completed shifts: In: 460 (9.8 mL/kg) [P.O.:450; I.V.:10 (0.2 mL/kg)] Out: 500 (10.7 mL/kg) [Urine:500 (0.3 mL/kg/hr)] Weight: 46.7 kg I/O this shift: In: - Out: 900 [Urine:900] Physical examination Body mass index is 17.14 kg/m??. General, appears stated age , comfortable , not in apparent pain or distress, underbuilt , frail, HEENT,ALEXIS neck, Supple chest, limited thoracic excursion, no added sounds, chest is clear CVS: S1 S2 ausculated abdomen, soft NT HOG DROPPER: AO3, NFD, gait not tested Extremities: R knee in immobilizer, mild R thigh tenderness, no leg edema,no calf tenderness Skin : no rashes Psych: mood is stable and normal affec LABS HEMATOLOGY Lab Results Component Value Date WBC 6.3 05/02/2025 HGB 8.5 (L) 05/03/2025 HCT 27.2 (L) 05/03/2025 MCV 98.2 (H) 05/02/2025 PLT 272 05/02/2025 CHEMISTRY Lab Results Component Value Date GLUCOSE 94 05/02/2025 NA 143 05/02/2025 K 4.7 05/02/2025 CO2 31 05/02/2025 CL 108 05/02/2025 BUN 22 05/02/2025 CREATININE 0.60 05/02/2025 EGFR 90 05/02/2025 CALCIUM 8.9 05/02/2025 MG 1.8 (L) 05/02/2025 PHOS 3.2 04/03/2025 ANIONGAP 4 05/02/2025 No results found for this or any previous visit (from the past week). Imaging: XR Femur 2+ Views Right Narrative: XR FEMUR 2+ VIEWS RIGHT INDICATION: ground fall, r/o fracture TECHNIQUE: XR FEMUR 2+ VIEWS RIGHT COMPARISON: None Impression: FINDINGS/IMPRESSION: Displaced distal femur fracture. -------- FINAL REPORT -------- Dictated By: Henry Forrester Dictated Date: 05/02/2025 10:26 ET Assigned Physician: Henry Forrester Reviewed and Electronically Signed By: Henry Forrester Signed Date: 05/02/2025 10:26 ET Workstation ID: [id number] Transcribed By: Self Edit Transcribed Date: 05/02/2025 10:26 ET 03/13/25 TRANSTHORACIC ECHOCARDIOGRAM (TTE) COMPLETE (CONTRAST/BUBBLE/3D PRN) 03/20/2025 03/13/2025 Interpretation Summary Left ventricle cavity size is normal. Left ventricular systolic function is mildly decreased with an ejection fraction of 40-45%. Mild LV global hypokinesis is present. Left ventricle wall thickness is normal. Right ventricle cavity is normal. Right ventricular systolic function is mildly reduced. Mildly elevated right ventricular systolic pressure. Mitral valve ring with normal function mean gradient 4 mmHg at ~75 bpm. Compared to 2022, there is a mild drop in the LVEF. Addendum by: Bhaskar Becker MD on 03/20/2025 11:44 AM Signed by: Bhaskar Becker MD on 03/20/2025 11:40 AM ASSESSMENT & PLAN This is an 84-year-old female with PMH atrial fibrillation on Eliquis, hypertension, glaucoma, depression, COPD, CHF, Takotsubo cardiomyopathy admitted 05/01/25 with periprosthetic femur fracture . complaint of right leg pain. 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 -admission labs notable for hemoglobin of 8.7, hematocrit of 27.7, creatinine of 0.67. -Right Knee x-ray showed angulated mildly displaced distal femur fracture, degenerative changes of the knee. - Hip x-ray showed recent postsurgical changes of the right femur unchanged from prior examination in anatomic alignment, chronic pelvic fracture deformities, degenerative changes of the spine. -Right Femur x-ray showed angulated and mildly displaced distal femur fracture, degenerative changes of the knee. -Patient was given morphine in the ED and placed in a brace -Orthopedics was consulted and plans to take the patient to the OR on Sunday. -npo at midnight on sunday High to Moderate operative risk Acute on Chronic anemia -appears around baseline 8-9 Especially in recent surgery On iv iron -continue to trend while inpatient Atrial fibrillation -continue metoprolol with holding parameters Secondary Hypercoagulable status -hold eliquis Osteoporosis Will need Mx I outptp Pt was on fosamax , stopped it years ago Was Chrnic smoker , quit only 2 years ago Hypovitaminosis D Started on vitamin D Hypertension -continue metoprolol as per above, lisinopril discontinued last admission Depression and anxiety -continue paroxetine Hyperlipidemia -continue statin Glaucoma -continue home eye drops 05/03/25 Npo after MN Possible OR in am IV iron May require RBC transfusion perioperatively VTE Prophylaxis: SCD Code status: Full Code - Confirmed Disposition:pending, will need operative intervention first Health care proxy with phone number :James Sigala [phone] Discussed with: pt, nursing Kim, vee Mx Total time spent 35 minutes doing reviewing the electronic medical record , interviewing patient, gathering information, performing physical exam, formulating plan, explaining management plan to patient, coordinating care with RN and case managmenet, documentation and placing orders. This dictation was performed using [employer] speech recognition software. If you have questions, please do not hesitate to reach me on [employer] messaging system or call our hospital at [phone] * Brian Baeza MD - 05/03/2025 2:24 PM EST DIAGNOSIS/ PLAN : Right sharron-implant femoral shaft fracture for operative treatment likely Sunday I have assessed this patient today. I personally saw and examined the patient, reviewed the generalhistory, examination, relevant vitals and medications appropriate to our specialist care. I reviewed any relevant imaging and performed the relevant medical decision making. The major facts and general medical history are as in the previous, recent records which I have reviewed. The patient mitzi comfortable awaiting surgery. Limb is neurovascularly intact comfortable in the knee immobilizer and she is awake alert and satisfactory. I have confirmed equipment has been arranged but not yet confirmed available for tomorrow she can be n.p.o. from midnight but I think surgery is more likely to take place on Sunday. Explained this to her As fully as possible, I have explained the problem and its management and reviewed the patients / family agenda and all questions relevant to this problem were answered. We discussed the management plan and agreed to proceed as described above. Elgin Baeza MD [facility] surgical colleagues Orthopaedic Trauma Service Please contact this office if there are questions. * Herlinda Villagran PT - 05/03/2025 1:58 PM EST Physical Therapy Therapy session was attempted for Isabella Díaz by Herlinda Villagran PT on 05/03/2025. The patient was unable to be seen for the following reason(s): Awaiting new orders Plan for return visit: After orthopedic surgery for repair of fractured hip * Jenise Olvera RN - 05/03/2025 6:00 AM EST Problem: Sensory: Acute Pain Goal: Pain level will improve or be tolerable Outcome: Progressing Goal: Ability to develop a pain control plan will improve Outcome: Progressing Problem: Cognitive: Grover Marv Fall Risk Goal: Mobility requiring assistance of person or device Outcome: Not Progressing Problem: Physical Regulation: Periop Procedure - Major Goal: Postoperative complications will be avoided or minimized Outcome: Progressing Goal: Ability to maintain clinical measurements within normal limits will improve Outcome: Progressing Problem: Activity: Physical Mobility Impairment Goal: Ability to ambulate will improve Outcome: Not Progressing Goal: Range of joint motion will be supported Outcome: Not Progressing Problem: Skin Integrity: Skin Integrity Impairment Goal: Skin integrity will improve Outcome: Progressing Problem: Cognitive: Skin Integrity Impairment Goal: Knowledge of the prescribed therapeutic regimen will improve Outcome: Progressing Problem: Nutritional: Skin Integrity Impairment Goal: Dietary intake will improve Outcome: Progressing Problem: Self-Care: Skin Integrity Impairment Goal: Compliance with treatment plan for underlying cause of condition will improve Outcome: Progressing Problem: Patient Specific Problem: Skin Integrity Impairment Goal: Patient Specific Outcome Outcome: Progressing Problem: Skin Integrity: Pressure Injury Actual or Risk of Goal: Will not develop new pressure injury Outcome: Progressing Goal: Skin integrity will improve Outcome: Progressing Goal: Risk for impaired skin integrity will decrease Outcome: Progressing Problem: Activity:Pressure Injury Actual or Risk of Goal: Mobility will improve Outcome: Not Progressing Problem: Nutritional:Pressure Injury Actual or Risk of Goal: Nutritional status will improve Outcome: Progressing Problem: Patient Specific Problem: Pressure Injury Actual or Risk of Goal: Patient Specific Outcome Outcome: Progressing Goals: Pain control, patient safety Identify possible barriers to meeting goals/advancing plan of care: awaiting surgery on Sunday Stability of the patient: Moderately Stable - Low risk of patient condition declining or worsening End of Shift Summary: Pt medicated for pain with oxycodone 5mg with good relief. VS stable. Bed alarm on. Call cabrera within reach. * Carolina Mak RN - 05/02/2025 4:25 PM EST 05/02/25 0588 Initial Transition Plan Initial Transition Plan [facility] Facility Back up Transition Plan Back up Transition plan [facility] Facility Discharge Planning Living Arrangements Other (Comment) (from [facility]) Type of Residence [facility] Name From [facility] Assistive Devices Walker;Wheelchair Support Systems Children Medication Coverage Has Med Coverage Under Insurance Plan Yes Medication Affordability No concerns related to payment for meds Anticipated Discharge Needs Discipline following for SNF placement Him Analyst Informed Choice Informed Choice Given? Yes Transportation Transportation at discharge Ambulance Met with patient at bedside verified demographics,Ins,PCP.[facility] for [facility] and was to DC home on 05/03.Patient requesting referral back to [facility] made in Epic.ICC to follow for dc planning needs * Kitty Castellanos MD - 05/02/2025 3:15 PM EST Images from the original note were not included. IMAN PROGRESS NOTE Date: 05/02/2025 Author: Kitty Castellanos MD Patient ID: Isabella Díaz is a 84 y.o. female : 1940 MR#: [id number] SUBJECTIVE Subjective Allergies Patient has no known allergies. Current Medications: Scheduled Medications PRN Medications IV Medications atorvastatin, 20 mg, Nightly cholestyramine, 4 g, BID with meals dorzolamide, 1 drop, BID ferric gluconate, 125 mg, Daily latanoprost, 1 drop, Nightly magnesium sulfate, 2 g, Once metoprolol succinate, 25 mg, Daily PARoxetine, 20 mg, q AM polyetheylene glycol, 17 g, Nightly sodium chloride, 10 mL, BID thiamine, 200 mg, q24h acetaminophen, 650 mg, q6h PRN HYDROmorphone, 0.5 mg, q3h PRN naloxone, 0.04 mg, PRN ondansetron, 4 mg, q6h PRN oxyCODONE, 5 mg, q4h PRN sodium chloride, 10 mL, PRN OBJECTIVE Vitals: 05/01/25 1819 05/02/25 0406 05/02/25 0753 05/02/25 1411 BP: 118/81 129/63 131/70 (!) 151/93 BP Location: Left arm Left arm Left arm Patient Position: Lying Lying Lying Pulse: 89 74 92 86 Resp: 20 18 17 16 Temp: 36.8 ??C (98.3 ??F) 36.5 ??C (97.7 ??F) 36.8 ??C (98.2 ??F) 36.9 ??C (98.4 ??F) TempSrc: Oral Oral Oral SpO2: 94% 95% 92% 97% Weight: Height: BP: 151/93 (05/02 1411) Heart Rate: 86 (05/02 1411) Heart Rate Source: Monitor (05/01 1819) Temp: 36.9 ??C (98.4 ??F) (05/02 1411) Temp Source: Oral (05/02 753) SpO2: 97 % (05/02 1411) No intake/output data recorded. I/O this shift: In: - Out: 300 [Urine:300] Physical examination Body mass index is 17.14 kg/m??. General, appears stated age , comfortable , not in apparent pain or distress, underbuilt HEENT,ALEXIS neck, Supple chest, limited thoracic excursion, no added sounds, chest is clear CVS: S1 S2 ausculated abdomen, soft NT HOG DROPPER: AO3, NFD, gait not tested Extremities: R femur tenderness, leg in immoboilizer , no leg edema,no calf tenderness Skin : no rashes Psych: mood is stable and normal affect LABS HEMATOLOGY Lab Results Component Value Date WBC 6.3 05/02/2025 HGB 8.5 (L) 05/02/2025 HCT 27.6 (L) 05/02/2025 MCV 98.2 (H) 05/02/2025 PLT 272 05/02/2025 CHEMISTRY Lab Results Component Value Date GLUCOSE 94 05/02/2025 NA 143 05/02/2025 K 4.7 05/02/2025 CO2 31 05/02/2025 CL 108 05/02/2025 BUN 22 05/02/2025 CREATININE 0.60 05/02/2025 EGFR 90 05/02/2025 CALCIUM 8.9 05/02/2025 MG 1.8 (L) 05/02/2025 PHOS 3.2 04/03/2025 ANIONGAP 4 05/02/2025 No results found for this or any previous visit (from the past week). Imaging: XR Femur 2+ Views Right Narrative: XR FEMUR 2+ VIEWS RIGHT INDICATION: ground fall, r/o fracture TECHNIQUE: XR FEMUR 2+ VIEWS RIGHT COMPARISON: None Impression: FINDINGS/IMPRESSION: Displaced distal femur fracture. -------- FINAL REPORT -------- Dictated By: Henry Forrester Dictated Date: 05/02/2025 10:26 ET Assigned Physician: Henry Forrester Reviewed and Electronically Signed By: Henry Forrester Signed Date: 05/02/2025 10:26 ET Workstation ID: [id number] Transcribed By: Self Edit Transcribed Date: 05/02/2025 10:26 ET 03/13/25 TRANSTHORACIC ECHOCARDIOGRAM (TTE) COMPLETE (CONTRAST/BUBBLE/3D PRN) 03/20/2025 03/13/2025 Interpretation Summary Left ventricle cavity size is normal. Left ventricular systolic function is mildly decreased with an ejection fraction of 40-45%. Mild LV global hypokinesis is present. Left ventricle wall thickness is normal. Right ventricle cavity is normal. Right ventricular systolic function is mildly reduced. Mildly elevated right ventricular systolic pressure. Mitral valve ring with normal function mean gradient 4 mmHg at ~75 bpm. Compared to 2022, there is a mild drop in the LVEF. Addendum by: Bhaskar Becker MD on 03/20/2025 11:44 AM Signed by: Bhaskar Becker MD on 03/20/2025 11:40 AM ASSESSMENT & PLAN This is an 84-year-old female with PMH atrial fibrillation on Eliquis, hypertension, glaucoma, depression, COPD, CHF, Takotsubo cardiomyopathy admitted 05/01/25 with periprosthetic femur fracture . complaint of right leg pain. 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 -admission labs notable for hemoglobin of 8.7, hematocrit of 27.7, creatinine of 0.67. -Right Knee x-ray showed angulated mildly displaced distal femur fracture, degenerative changes of the knee. - Hip x-ray showed recent postsurgical changes of the right femur unchanged from prior examination in anatomic alignment, chronic pelvic fracture deformities, degenerative changes of the spine. -Right Femur x-ray showed angulated and mildly displaced distal femur fracture, degenerative changes of the knee. -Patient was given morphine in the ED and placed in a brace -Orthopedics was consulted and plans to take the patient to the OR on Sunday. -npo at midnight on Sunday Pain is controlled High to Moderate operative risk Acute on Chronic anemia -appears around baseline 8-9 Especially in recent surgery On iv iron -continue to trend while inpatient Will get RBC perioperatively Protein calorie malnutrition IV thiamine Nutritional consult Ex smoker Quit smoking 2 years ago Clinical copd. Not wheezing Atrial fibrillation -continue metoprolol with holding parameters Secondary Hypercoagulable status -hold eliquis Osteoporosis Will need Mx in outptp Pt was on fosamax , stopped it years ago Was Chrnic smoker , quit only 2 years ago Hypovitaminosis D Started on vitamin D Hypertension -continue metoprolol as per above, lisinopril discontinued last admission Depression and anxiety -continue paroxetine Hyperlipidemia -continue statin Glaucoma -continue home eye drops 05/03/25 Npo after MN Possible OR in am IV iron May require RBC transfusion perioperatively As per Ortho: This was treated with total hip replacement and femoral fixation, the initial recovery was complicated by a seroma which required an I&D which was not infected. She subsequently went on to recover well but had a fall yesterday was walking on some stairs and now has suffered a fracture of the right femur in the area of the distal screw hole of the plate. Assessment this morning she is comfortable, alert and fully orientated. The new injury is closed isolated to the limb neurovascular intact and now comfortable in a knee immobilizer. Review of the x-rays suggest this is a high supracondylar fracture of the right distal femur to thedistal screw hole of the plate on clinical assessment the wound is fully healthy although carmel are still in place and the limb is clearly neurovascular intact. This is extremely complex fracture to repair, I suggest this will require 2 plating that is likely failed because of bone quality and although was a screw at this level the stress riser was limited by stopping hip short of this. We should plan a lateral and intraosseous fixation to spread the load over the distal femur we are looking at doing surgery on Sunday or more likely Sunday when equipment is available. I noted her current hemoglobin is 8.5 she will require blood crossmatched with surgery. Please maken.p.o. Sunday evening, it may be possible to do this on Sunday. VTE Prophylaxis:boots Code status: Full Code - Confirmed Disposition:SNF postop Health care proxy with phone number :Jovon [phone] Discussed with: pt, nursing, C3 Total time spent 35 minutes doing reviewing the electronic medical record , interviewing patient, gathering information, performing physical exam, formulating plan, explaining management plan to patient, coordinating care with RN and case managmenet, documentation and placing orders. This dictation was performed using [employer] speech recognition software. If you have questions, please do not hesitate to reach me on Flow[employer] system or call our hospital at [phone] * Tiffany Mcmanus RN - 05/02/2025 2:23 AM EST Problem: Sensory: Acute Pain Goal: Pain level will improve or be tolerable Outcome: Progressing Goal: Ability to develop a pain control plan will improve Outcome: Progressing Problem: Cognitive: Lenore Fair Fall Risk Goal: Mobility requiring assistance of person or device Outcome: Progressing Problem: Activity: Physical Mobility Impairment Goal: Ability to ambulate will improve Outcome: Progressing Goal: Range of joint motion will be supported Outcome: Progressing Goals: Identify possible barriers to meeting goals/advancing plan of care: Stability of the patient: End of Shift Summary: Patient safety and comfort maintained. Pain medicated prn. Knee brace intact on right knee. Vitals stable. On purewick with orders. A&Ox4. Strict bedrest. Resting calmly. Bed alarm on. * Johana Goode - 05/01/2025 6:36 PM EST Images from the original note were not included. Medication History Tier In Medication history has been obtained for Isabella Díaz (1940) by a Medication Historian and the home med list has been updated. History obtained from conversation with: Patient Additional Source(s) of History: SNF Records []Updated Patient Preferred Pharmacy The Patient's Home Medications include: HOME MEDICATIONS INSTRUCTIONS NOTES acetaminophen (TYLENOL) 325 mg tablet () Take 2 tablets (650 mg total) by mouth every 6 (six) hours if needed for mild pain, fever - temperature GREATER than 38 C (100.4 F) or headaches for upto 10 days. Patient not taking. Reported on 05/01/2025 apixaban (Eliquis) 2.5 mg tablet TAKE 1 TABLET BY MOUTH TWICE A DAY ascorbic acid (VITAMIN C) 500 mg tablet Take 1 tablet (500 mg total) by mouth 2 (two) times a day for 16 doses. atorvastatin (LIPITOR) 20 mg tablet Take 1 tablet (20 mg total) by mouth 1 (one) time each day. Patient taking differently: 20 mg oral Nightly, Reported on 05/01/2025 cholestyramine (QUESTRAN) 4 gram packet TAKE 1 PACKET BY MOUTH 2 TIMES A DAY WITH MEALS. Patient taking differently: 4 g oral 2 times daily with meals, Reported on 05/01/2025 dorzolamide (TRUSOPT) 2 % ophthalmic solution Administer 1 drop into the left eye 2 (two) times a day. ADDITION dorzolamide-timoloL (COSOPT) 22.3-6.8 mg/mL ophthalmic solution Administer 1 drop into both eyes 2 (two) times a day. Patient not taking. Reported on 05/01/2025 latanoprost (XALATAN) 0.005 % ophthalmic solution Administer 1 drop into both eyes at bedtime. metoprolol succinate (TOPROL-XL) 25 mg 24 hr tablet TAKE 1 TABLET BY MOUTH EVERY DAY multivit-min/iron/folic acid/K (ADULTS MULTIVITAMIN ORAL) Take by mouth daily. Patient not taking. Reported on 05/01/2025 PARoxetine (PAXIL) 20 mg tablet TAKE 1 TABLET BY MOUTH EVERY DAY IN THE MORNING vitamin A 3,000 mcg (10,000 unit) capsule () Take 1 capsule (10,000 Units total) by mouth 1 (one) time each day for 7 doses. Patient not taking. Reported on 05/01/2025 Thank you, Johana Goode Medication Historian W: [phone] * Aníbal Cortes RN - 05/01/2025 6:20 PM EST ED RN HANDOFF (All Aldana Below Must Be Completed) Reason/Diagnosis for Admission: Type of Admission: [x] Medsurg, [] Telemetry Already in a Hospital Bed: [] Yes / [x] No Room Considerations/Precautions (ex: fever, diarrhea, or any infectious concerns): [] Yes / [x] No Electric Motor Winder: [] Yes / [x] No If YES, Cardiac Rhythm: [] NSR, [] SB, [] ST, [] A-FIB, [] A-Flutter, [] Pacemaker, [] 1st Degree HB, [] 2nd Degree HB, [] 3rd Degree HB Reason for Electric Motor Winder: VS: Visit Vitals BP 118/81 (BP Location: Left arm, Patient Position: Lying) Pulse 89 Temp 36.8 ??C (98.3 ??F) (Oral) Resp 20 Ht 1.651 m (65 ) Wt 46.7 kg (103 lb) SpO2 94% BMI 17.14 kg/m?? OB Status Postmenopausal Smoking Status Former BSA 1.49 m?? Current Mental Status: A/O x [x]4, []3, []2, []1 Current Ambulation Status: IV Access: [x] Yes / [] No Field IV present: [x] Yes / [] No Hx of Violence: [] Yes / [x] No / [] Unknown Fall Risk:[x] Yes / [] No Yellow Bracelet Applied [x] Yes / [] No Yellow Socks Applied [x] Yes / [] No Patient Belongings inventoried and BL completed: [x] Yes / [] No Patient belongings stored in the security closet: [] Yes (If Yes please supply Security bag #): [x] No Patient Medications stored in Pharmacy: [] Yes (If Yes please supply Medication Security bag #): [x] No ED Summary of Care: Pt with recent hx of right hip fx with surgical repair. BIBA from rehab following feeling a pop in her right leg. Visible deformity to right leg. Pt denies pain at rest, states 7/10 with movement. Xray showed femoral fracture, reduced and knee brace placed. Pt denies pain following reduction. To be admitted for surgical repair. Submitted by and Phone Extension: Aníbal Du [phone] * Lyndsay Figueroa RN - 05/01/2025 5:27 PM EST Pt incontinent of urine. Pt assisted with linen change and sharron care. New brief applied, skin on pt's bottom intact. Pt tolerated well.Call cabrera within reach, pt verbalized understanding of call belluse. * Lyndsay Figueroa RN - 05/01/2025 2:33 PM EST Pt arrives by EMS from [facility]. Pt was doing PT, while coming down stair pt felt a pop in her right leg. Denies fall, pt able to get into a chair. Internal rotation of right hip, distal femur deformity. Pt C/O right leg pain. Pt given 100mcg fentanyl en route by EMS. Pt was in rehab after right hip replacement in the beginning of March. * Nik Vogt MD - 05/01/2025 2:28 PM EST HPI Chief Complaint Patient presents with Leg Injury Right hip/distal femur 84-year-old female presented via [facility] with right leg injury involving the right hip and distal femur after feeling a pop in the right leg while descending stairs during physicaltherapy. Patient denies any fall and was able to get into a chair following the event. Reports right leg pain and notes internal rotation of the right hip with distal femur deformity. Pre- arrival treatment included fentanyl 100 micrograms administered en route by EMS. History provided by: Patient [place] Coma Scale Score: 15 Patient History Medical History[1] Surgical History[2] Family History[3] Social History Tobacco Use Smoking status: Former Current packs/day: 0.00 Types: Cigarettes Quit date: 11/23/2020 Years since quittin.4 Smokeless tobacco: Never Vaping Use Vaping status: Never Used Substance Use Topics Alcohol use: Yes Alcohol/week: 1.0 standard drink of alcohol Types: 1 Glasses of wine per week Comment: once a week Drug use: Never Review of Systems Review of Systems Physical Exam ED Triage Vitals [05/01/25 1438] Temp Heart Rate Resp BP 36.9 ??C (98.4 ??F) 92 18 (!) 130/93 SpO2 Temp Source Heart Rate Source Patient Position 98 % Oral -- Sitting BP Location FiO2 (%) Left arm -- Physical Exam Vitals and nursing note reviewed. Constitutional: Appearance: Normal appearance. HENT: Head: Normocephalic and atraumatic. Nose: Nose normal. Mouth/Throat: Mouth: Mucous membranes are moist. Eyes: Extraocular Movements: Extraocular movements intact. Conjunctiva/sclera: Conjunctivae normal. Pupils: Pupils are equal, round, and reactive to light. Cardiovascular: Rate and Rhythm: Normal rate. Pulses: Normal pulses. Pulmonary: Effort: Pulmonary effort is normal. Abdominal: General: Abdomen is flat. Palpations: Abdomen is soft. Musculoskeletal: General: Normal range of motion. Cervical back: Normal range of motion. Right upper leg: Swelling, deformity and bony tenderness present. Comments: Patient has an obvious deformity to the right distal femur. PT and DP pulses are 2+ bilaterally. Compartments are soft bilaterally. Sensation intact to light touch, bilateral legs are warm and well-perfused. No signs of any skin tenting are noted. Skin: General: Skin is warm and dry. Capillary Refill: Capillary refill takes less than 2 seconds. Neurological: General: No focal deficit present. Mental Status: She is alert. Mental status is at baseline. Psychiatric: Mood and Affect: Mood normal. Behavior: Behavior normal. ED Course & MDM Clinical Impressions as of 05/01/252107 Other closed fracture of distal end of right femur, initial encounter ([facility] V24, [facility] V28) Medical Decision Making This 84-year-old female was evaluated here chief complaints of a popping sensation when she was walking on the stairs earlier in the day. Patient reports that she was in rehab for recent diagnosis of right femur and hip fracture. She recently had surgery at this hospital on April 03. On physical exam today she does have an obvious deformity to the right distal femur. X-rays are confirming a periprosthetic right distal femur fracture. I discussed the case with Dr. Lefty Baeza, on-call orthopedic surgeon at this time who states that we should admit the patient to internal medicine and with plan for surgery on Sunday. He also recommended placement of a right knee immobilizer and straightening the leg for comfort which I did perform in the emergency department. Case is discussed with Dr. Winn who kindly accepts for further management care. Problems Addressed: Other closed fracture of distal end of right femur, initial encounter ([facility] V24, [facility] V28): complicated acute illness or injury Procedures Nik Vogt MD 05/01/25 6513 [1] Past Medical History: Diagnosis Date Atrial fibrillation ([facility] V24, [facility] V28) 01/17/2021 DX:Atrial fibrillation ([facility]) CHF (congestive heart failure) ([facility] V24, [facility] V28) 01/17/2021 DX:CHF (congestive heart failure) ([facility]) Clostridium difficile diarrhea 03/26/2024 DX:Clostridium difficile diarrhea Depression 01/17/2021 DX:Depression Hypertension NSTEMI (non-ST elevated myocardial infarction) ([facility] V24, [facility] V28) 01/17/2021 DX:NSTEMI (non-ST elevated myocardial infarction) ([facility]); COMMENT: 12/2020 Dr Eller, holter monitor and cardiac cath as outpt. NSTEMI (non-ST elevated myocardial infarction) ([facility] V24, [facility] V28) 01/17/202112/2020 Dr Eller, holter monitor and cardiac cath as outpt. Pubic ramus fracture ([facility] V24, [facility] V28) 11/30/2021 DX:Pubic ramus fracture ([facility]) Takotsubo cardiomyopathy 01/17/2021 DX:Takotsubo cardiomyopathy [2] Past Surgical History: Procedure Laterality Date JOINT REPLACEMENT OTHER SURGICAL HISTORY PROCEDURE: HISTORICAL MITRAL VALVE REPL OTHER SURGICAL HISTORY PROCEDURE: HISTORY OTHER; COMMENT: right humerus fracture TONSILLECTOMY PROCEDURE: HISTORICAL TONSILLECTOMY [3] Family History Problem Relation Name Age of Onset Heart attack Maternal Grandfather Nik Vogt MD 05/01/25 9407 documented in this encounter H&P Notes * BURAK Cardenas - 05/01/2025 6:47 PM EST Images from the original note were not included. IMAN HISTORY AND PHYSICAL Please contact author [BURAK Cardenas] via [employer]. Patient: Isabella Díaz Admission Date/Time: 05/01/2025 2:31 PM : 1940 [84 y.o.] Patient's PCP: Lilliam Levy MD Attending Provider: Nik Vogt MD;Miguelangel Gillis CHIEF COMPLAINT [place] a pop in her right leg HISTORY OF PRESENT ILLNESS Mrs. Díaz is an 84-year-old female with PMH atrial fibrillation on Eliquis, hypertension, glaucoma, depression, COPD, CHF, Takotsubo cardiomyopathy amongst others seen today for complaint of rightleg pain. Patient reports that she was at PT earlier today and when she was stepping down from a step she felt a sudden pop in her right leg and had difficulty with bearing weight. She never fell or h ad any symptoms prior including lightheadedness or dizziness, chest pain, shortness of breath, nausea, vomiting, abdominal pain, diarrhea, productive cough. She was given 100 mcg of fentanyl en routeby EMS. Last echo was in November 2024 which showed EF of 40 to 45%, mild left ventricular global hypokinesis present unable to assess diastolic function. Vitals are as follows: Temperature of 36.9, pulse of 92, respiratory rate of 18, blood pressure of 130/93 and pulse ox of 90% on room air. Patient's labs notable for hemoglobin of 8.7, hematocrit of 27.7, creatinine of 0.67. Right Knee x-ray showed angulated mildly displaced distal femur fracture, degenerative changes of the knee. Hip x-ray showed recent postsurgical changes of the right femur unc hanged from prior examination in anatomic alignment, chronic pelvic fracture deformities, degenerative changes of the spine. Right Femur x-ray showed angulated and mildly displaced distal femur fracture, degenerative changes of the knee. Patient was given morphine in the ED. Orthopedics was consulted and plans to take the patient to the OR on Sunday. [place] [facility] [place] further management of their periprosthetic fracture. Review of Systems Review of Systems 10 point review of systems negative as otherwise stated in the HPI MEDICAL HISTORY Past Medical History Medical History[1] Past Surgical History Surgical History[2] Social History reports that she quit smoking about 4 years ago. Her smoking use included cigarettes. She has neverused smokeless tobacco. She reports current alcohol use of about 1.0 standard drink of alcohol per week. She reports that she does not use drugs. Family History family history includes Heart attack in her maternal grandfather. Allergies has no known allergies. Home Medications Medications Ordered Prior to Encounter[3] OBJECTIVE Vitals Visit Vitals BP 118/81 (BP Location: Left arm, Patient Position: Lying) Pulse 89 Temp 36.8 ??C (98.3 ??F) (Oral) Resp 20 Temp (24hrs), Av.8 ??C (98.3 ??F), Min:36.7 ??C (98.1 ??F), Max:36.9 ??C (98.4 ??F) Body mass index is 17.14 kg/m??. No results found for: PTWT , PTHT Physical Examination Physical Exam General: well appearing older female sitting upright in the stretcher, in no acute distress, calm Skin: Appropriate tone for ethnicity, warm, dry, no rashes or wounds HEENT: normocephalic, atraumatic, sclera nonicteric, Pulmonary: Lungs clear to auscultation in all lung aldana bilaterally. No wheezes rales or rhonchi appreciated, no respiratory distress, no accessory muscle use. Cardiac: S1 and S2 appreciated, no murmurs, rubs or gallops, no peripheral edema Abdomen: Soft, non-tender, nondistended, no guarding or rebound tenderness appreciated. Bowel sounds normoactive. MSK: Full range of motion in upper and lower extremities with exception of right lower extremity which is braced Neuro: Alert and oriented x4. No focal neurological deficits appreciated. No facial droop. Psych: Normal affect. ECG: Was ECG Performed? No EKG Performed. Sinus Rhythm? N/A. Signs of acute ischemia? N/A Further Interpretation: EKG ordered LAB RESULTS (most recent) HEMATOLOGY Lab Results Component Value Date WBC 7.5 05/01/2025 HGB 8.7 (L) 05/01/2025 HCT 27.7 (L) 05/01/2025 MCV 98.9 (H) 05/01/2025 PLT 273 05/01/2025 CHEMISTRY Lab Results Component Value Date GLUCOSE 118 (H) 05/01/2025 NA 141 05/01/2025 K 3.9 05/01/2025 CO2 30 05/01/2025 CL 107 05/01/2025 BUN 24 05/01/2025 CREATININE 0.67 05/01/2025 EGFR 87 05/01/2025 CALCIUM 8.7 05/01/2025 MG 1.8 (L) 04/13/2025 PHOS 3.2 04/03/2025 ANIONGAP 4 05/01/2025 Radiology XR Hip 2-3 Views Right Final Result FINDINGS/IMPRESSION: Recent postsurgical changes of the right femur unchanged from prior examination and in anatomic alignment. Chronic pelvic fracture deformities. Degenerative changes of the spine. -------- FINAL REPORT -------- Dictated By: Henry Forrester Dictated Date: 05/01/2025 16:37 ET Assigned Physician: Henry Forrester Reviewed and Electronically Signed By: Henry Forrester Signed Date: 05/01/2025 16:38 ET Workstation ID: [id number] Transcribed By: Self Edit Transcribed Date: 05/01/2025 16:37 ET XR Knee 1-2 Views Right Final Result FINDINGS/IMPRESSION: There is a angulated and mildly displaced distal femur fracture. Degenerative changes of the knee. -------- FINAL REPORT -------- Dictated By: Henry Forrester Dictated Date: 05/01/2025 16:39 ET Assigned Physician: Henry Forrester Reviewed and Electronically Signed By: Henry Forrester Signed Date: 05/01/2025 16:39 ET Workstation ID: [id number] Transcribed By: Self Edit Transcribed Date: 05/01/2025 16:39 ET XR Femur 2+ Views Right (Results Pending) ASSESSMENT & PLAN Periprosthetic fracture -vitals are stable -labs notable for hemoglobin of 8.7, hematocrit of 27.7, creatinine of 0.67. -Right Knee x-ray showed angulated mildly displaced distal femur fracture, degenerative changes of the knee. - Hip x-ray showed recent postsurgical changes of the right femur unchanged from prior examination in anatomic alignment, chronic pelvic fracture deformities, degenerative changes of the spine. -Right Femur x-ray showed angulated and mildly displaced distal femur fracture, degenerative changes of the knee. -Patient was given morphine in the ED and placed in a brace -Orthopedics was consulted and plans to take the patient to the OR on Sunday. -EKG ordered -npo at midnight on sunday -Am labs Chronic anemia -appears around baseline 8-9 -continue to trend while inpatient Atrial fibrillation -hold eliquis -continue metoprolol with holding parameters Hypertension -continue metoprolol as per above, lisinopril discontinued last admission Depression and anxiety -continue paroxetine Hyperlipidemia -continue statin Glaucoma -continue home eye drops Admission checklist [x] Code status: Full Code - Default confirmed with patient today [x] VTE Prophylaxis: scd [x] Diet order on admission: Dietary Orders (From admission, onward) Start Ordered 05/01/25 180 Adult diet [facility]; Cardiac; Cardiac Diet effective now Question Answer Comment Location [facility] Diet Type (req) Cardiac Diet Type (cardiac) Cardiac 05/01/251810 [x] Lines, tubes, drains: IV access [x] Medication reconciliation Health Care proxy with Phone number Jovon Díaz her son, [1] Past Medical History: Diagnosis Date ??? Atrial fibrillation ([facility] V24, [facility] V28) 01/17/2021 DX:Atrial fibrillation ([facility]) ??? CHF (congestive heart failure) ([facility] V24, [facility] V28) 01/17/2021 DX:CHF (congestive heart failure) ([facility]) ??? Clostridium difficile diarrhea 03/26/2024 DX:Clostridium difficile diarrhea ??? Depression 01/17/2021 DX:Depression ??? Hypertension ??? NSTEMI (non-ST elevated myocardial infarction) ([facility] V24, [facility] V28) 01/17/2021 DX:NSTEMI (non-ST elevated myocardial infarction) ([facility]); COMMENT: 12/2020 Dr Eller, holter monitor and cardiac cath as outpt. ??? NSTEMI (non-ST elevated myocardial infarction) ([facility] V24, [facility] V28) 01/17/202112/2020 Dr Eller, holter monitor and cardiac cath as outpt. ??? Pubic ramus fracture ([facility] V24, [facility] V28) 11/30/2021 DX:Pubic ramus fracture ([facility]) ??? Takotsubo cardiomyopathy 01/17/2021 DX:Takotsubo cardiomyopathy [2] Past Surgical History: Procedure Laterality Date ??? JOINT REPLACEMENT ??? OTHER SURGICAL HISTORY PROCEDURE: HISTORICAL MITRAL VALVE REPL ??? OTHER SURGICAL HISTORY PROCEDURE: HISTORY OTHER; COMMENT: right humerus fracture ??? TONSILLECTOMY PROCEDURE: HISTORICAL TONSILLECTOMY [3] No current facility-administered medications on file prior to encounter. Current Outpatient Medications on File Prior to Encounter Medication Sig Dispense Refill ??? apixaban (Eliquis) 2.5 mg tablet TAKE 1 TABLET BY MOUTH TWICE A DAY 60 tablet 5 ??? ascorbic acid (VITAMIN C) 500 mg tablet Take 1 tablet (500 mg total) by mouth 2 (two) times a day for 16 doses. 16 each 0 ??? atorvastatin (LIPITOR) 20 mg tablet Take 1 tablet (20 mg total) by mouth 1 (one) time each day.(Patient taking differently: Take 1 tablet (20 mg total) by mouth at bedtime.) 90 tablet 1 ??? cholestyramine (QUESTRAN) 4 gram packet TAKE 1 PACKET BY MOUTH 2 TIMES A DAY WITH MEALS. (Patient taking differently: Take 1 packet (4 g total) by mouth 2 (two) times a day with meals.) 180 packet 0 ??? dorzolamide (TRUSOPT) 2 % ophthalmic solution Administer 1 drop into the left eye 2 (two) timesa day. ??? latanoprost (XALATAN) 0.005 % ophthalmic solution Administer 1 drop into both eyes at bedtime. ??? metoprolol succinate (TOPROL-XL) 25 mg 24 hr tablet TAKE 1 TABLET BY MOUTH EVERY DAY 90 tablet 1 ??? PARoxetine (PAXIL) 20 mg tablet TAKE 1 TABLET BY MOUTH EVERY DAY IN THE MORNING 90 tablet 0 ??? [] acetaminophen (TYLENOL) 325 mg tablet Take 2 tablets (650 mg total) by mouth every 6 (six) hours if needed for mild pain, fever - temperature GREATER than 38 C (100.4 F) or headaches for up to 10 days. (Patient not taking: Reported on 05/01/2025) ??? dorzolamide-timoloL (COSOPT) 22.3-6.8 mg/mL ophthalmic solution Administer 1 drop into both eyes 2 (two) times a day. (Patient not taking: Reported on 05/01/2025) ??? multivit-min/iron/folic acid/K (ADULTS MULTIVITAMIN ORAL) Take by mouth daily. (Patient not taking: Reported on 04/09/2025) ??? [] vitamin A 3,000 mcg (10,000 unit) capsule Take 1 capsule (10,000 Units total) by mouth 1 (one) time each day for 7 doses. (Patient not taking: Reported on 05/01/2025) Cosigned by Miguelangel Winn MD at 05/08/2025 8:42 AM EST Associated attestation - Miguelangel Winn MD - 05/08/2025 8:42 AM EST This is a split/shared visit with BURAK Cardenas. I personally performed the medical decision making (MDM) for the care of this patient on 05/01/25 as documented below Patient was discussed with Advanced Practice Provider. This is a 84 y.o. woman with history of chronic A fib, on apixaban, Takotsubo cardiomyopathy, s/p MVR, HTN, CAD, hyperlipidemia, depression, previous C. Diff, etc., who has been admitted to [facility] at least couple of times since early 03/2025: first by 04/01/25 after a fall that resulted on a R hip fx for which she had a R hip ORIF on 04/03/25 and was discharged to rehab 2 days later (by 04/05); and then, by 04/09 she was sent back to the hospital from SNF due to R hip wound sero-sanguinolent drainage. A CT of the pelvis done in ED showed anextensive soft tissue stranding with ? right gluteal/ buttock hematoma. she was also noted to be in Afib with RVR. She was kept in the hospital until 04/20, when she was discharged back to rehab. During her prolonged stay she had 3 I&D procedures done by Ortho, with placement of a wound VAC as well as primary closure of the wound by 10/22. She was also transfused PRBC due to worsening H&H. It seems that she finally was doing better after rehab and while doing PT earlier today, she suddenly felt a pop on her right thigh, just above her knee, while going down on stairs (of note she did not fall at all); but the pain was really bad and was sent back to the ED, where X-rays showed a displaced/angulated distal femur periprosthetic fracture. Orthopedics has been consulted and the patient will be admitted to the hospital for surgical repair of this new fracture of the right lower extremity. Klaudiaquis will be put on hold. I personally saw and examined the patient at bedside. I independently obtained further history and reviewed significant updates, labs and imaging. I also contacted pertinent consultants in order to facilitate patient's medical care. Otherwise, I agree with the documentation and plan as outlined in the note below. Miguelangel Winn MD 05/08/25 7:52 AM EST documented in this encounter Procedure Notes * Bhaskar Matos MD - 05/18/2025 2:10 PM EST ORTHOPEDIC OPERATIVE REPO Date of procedure: 18 May 2025 preop Dx: Right hip: Infection Postop Dx: Right hip: Infection Procedure: Right hip 1. VAC removal 2. Excisional debridement irrigation to the level of the fascia 3. Reapplication VAC dressing Surgeon: ELENITA Matos Loss Prevention Guard BURAK Monteiro Anesthesia: YINA Anesthesiologist: Fermin DUBON Fluids: 300 cc LR EBL: 100 Culture: None Pathology: None Complications: None Indications persistent drainage output in VAC Description of procedure patient transported the OR P Description of procedure: Patient greeted in holding area Site ID performed Patient transported to the OR Transferred to OR table Properly positioned and secured to table Sterile prep and drape performed Final timeout performed Previous VAC sponge had been removed Excisional debridement irrigation performed to level of bone instruments utilized scalpel curette pickup rongeur and pulsatile lavage VAC dressing was then replaced ELENITA MATOS MD POSTOP ORDERS: Antibiotics: As per infectious disease meropenem Analgesia limit opiates wean off as possible VAC output monitor closely Inflammatory markers monitor closely Return to the OR Sunday or Sunday depending on VAC output Analgesia: As charted and orders, limit opiates and wean off as soon as possible * Kelsie Child RN - 05/18/2025 2:05 PM EST Pt received to pacu. Placed on monitors. Wound vac intact to right hip at 125mm suction. Pt denies pain * Gris Mojica MD - 05/15/2025 12:12 PM EST INCISION DRAINAGE EXTREMITY LOWER WITH WOUND VAC CHANGE (R) OPERATIVE NOTE Preoperative diagnosis: Right distal femur drianing wound Postoperative diagnosis: Same. Procedure: Right distal femur nonexcisional irrigation and debridement of a 10 cm x 3 cm wound withVAC sponge application deep. Surgeon: Dr. Gris Mojica. Anesthesia: GETA. EBL: Less than 100 cc. Indications: Faby is an 84-year-old woman well-known to the orthopedic trauma service she has had multiple procedures with her and every time she has a surgery she has difficulty with her wounds postoperatively this is not new for her. The wounds tend to drain and ultimately desiccate. Her protoplasm is incredibly poor. Not surprisingly postoperatively after this revision fixation her wound is again draining serosanguineous fluid. Her cultures are now growing gram negative bacilli. She presents to the operating room today for second look. Procedure in detail: The patient was identified in the preoperative area. The right lower extremitywas marked by me in conjunction with the patient. She was brought to the operating room and placed in the lateral decubitus position with the right side up. The right lower extremity was prepped and draped in a sterile fashion. An appropriate timeout was performed. All parties agreed on the right side. Antibiotics were given prior to beginning. We removed the VAC sponge prior to prepping and draping. Most of the drainage was tracking proximately to her abductors. We performed a thorough nonexcisional irrigation and debridement of this area. No purulence was noted simply serosanguineous fluid.The VAC sponge was replaced to and held successfully to suction. Postoperative plan: Antibiotics: Ancef until cultures finalize Activity: Weightbearing as tolerated Analgesia: Please minimize narcotics Anticoagulation: Lovenox or heparin while in house is fine aspirin 81 mg p.o. twice daily on discharge 6 weeks. Her Eliquis should be held until this wound completely settles. Once it settles we can send the patient back to her primary care doctor for potential restarting of the Eliquis. Although given that she has fallen multiple times now I am not sure resuming the Eliquis is a good idea but this will be up to her discussion with her and her PCP once the wound settles. Additional: Follow-up VAC output, follow-up infectious disease recomendations. She will need to return to the operating room later this week for potential repeat irrigation debridement potential closure. * Gris Mojica MD - 05/13/2025 10:10 AM EST INCISION DRAINAGE EXTREMITY LOWER (R) OPERATIVE NOTE Preoperative diagnosis: Right distal femur drianing Postoperative diagnosis: Same. Procedure: Right distal femur nonexcisional irrigation and debridement of a 10 cm x 3 cm wound withVAC sponge application deep. Surgeon: Dr. Gris Mojica. Chemical Engineer: Adelina Taylor PA-C. The PA was essential to this case to help prep drape position and facilitate retraction in order to allow me to perform the navas portions of this case. Anesthesia: GETA. EBL: Less than 100 cc. Indications: Faby is an 84-year-old woman well-known to the orthopedic trauma service she has had multiple procedures with her and every time she has a surgery she has difficulty with her wounds postoperatively this is not new for her. The wounds tend to drain and ultimately desiccate. Her protoplasm is incredibly poor. Not surprisingly postoperatively after this revision fixation her wound is again draining serosanguineous fluid. I informed Faby there are only certain number of times we can enter this limb before it becomes infected and I hope this is not 1 of those times. After attemptingto allow this to desiccate with dressings which was unsuccessful we brought her to the operating room today for VAC sponge placement irrigation and debridement she was amenable to proceeding. Procedure in detail: The patient was identified in the preoperative area. The right lower extremitywas marked by me in conjunction with the patient. She was brought to the operating room and placed in the lateral decubitus position with the right side up. The right lower extremity was prepped and draped in a sterile fashion. An appropriate timeout was performed. All parties agreed on the right side. Antibiotics were given prior to beginning. We removed the carmel over the area of the drainingwound. Most of the drainage was tracking proximately to her abductors. We performed a thorough nonexcisional irrigation and debridement of this area. No purulence was noted simply serosanguineous fluid. We then tracked a VAC sponge deep proximally and we evaluated her distal wound which is healing beautifully without any sign of infection or hematoma. Of note we did take cultures prior to irrigation and debridement. We held the VAC sponge successfully to suction and the patient was taken in stable condition to the recovery room. Postoperative plan: Antibiotics: Ancef until cultures finalize Activity: Weightbearing as tolerated Analgesia: Please minimize narcotics Anticoagulation: Lovenox or heparin while in house is fine aspirin 81 mg p.o. twice daily on discharge 6 weeks. Her Eliquis should be held until this wound completely settles. Once it settles we can send the patient back to her primary care doctor for potential restarting of the Eliquis. Although given that she has fallen multiple times now I am not sure resuming the Eliquis is a good idea but this will be up to her discussion with her and her PCP once the wound settles. Additional: Follow-up VAC output, follow-up intraoperative cultures. She will need to return to theoperating room later this week for potential repeat irrigation debridement potential closure. * Courtney Jara RN - 05/13/2025 9:09 AM EST ARRIVES TO .A&OX3.ASST UP TO BR WITH WALKER.AMBULATES STEADY.VOIDED AND MOVED BOWELS AND ASSTBACK TO BED.ALL PROCEDURES EXPLAINED.VSS * Brian Baeza MD - 05/05/2025 11:59 AM EST ORIF RIGHT FEMUR DISTAL (R) OPERATIVE NOTE Date: 05/05/2025 Location: [facility] OR Name: Isabella Díaz, : 1940, PREOP-DIAGNOSIS: Complex SHARRON implant fracture right distal femur POSTOP-DIAGNOSIS: Same PROCEDURE: Removal of previous deep hardware, ORIF right distal femur fracture with intramedullary and lateral locked plating SURGEON: Augusta Baeza MD [facility] As possible with this patient, I have discussed the surgical plan with the patient/family and as needed reviewed the consent and discussed the planned role of other members of the surgical team who will be named in the main operation note. I have explained as possible, that I will be present for all critical portions of the procedure, perform any essential critical elements but will be assisted by other staff as required. I've answered all required patient or family questions and confirmed I have signed the consent sheet. HVAC SERVICE MANAGER: Sindi Jennings PA-C My financial services assistant was present for this case and assisted me extensively with the following: positioning,prepping and draping, providing help and visualization while I performed the navas points of the procedure and with wound closure. IMPLANTS: Synthes narrow large fragment plate, globus lateral femoral plate. EBL: 300 IMMEDIATE COMPLICATIONS: None DRAINS / SPECIAL WOUND CARE: None SPECIMENS: None DESCRIPTION OF PROCEDURE: The patient was brought to the Operating suite for surgery as planned. Prior to induction of anesthesia, the side and site was checked and marked with the patient and prior to incision a full timeoutwas performed. The patient was brought to the Operating Room, anesthetized, placed supine on a Alvarez table. The area of injury was inspected after induction, there was fully healed wound on the lateral border of the femur looking entirely healthy but carmel still in place from the previous surgery. There was clear instability in the distal third of the femur but no gross soft tissue swelling. A routine prescrub with chlorhexidine/alcohol performed. The whole area was prepared and draped in the usual way. After preparation the old carmel were removed and the old posterolateral incision reopened over the lower third of the femur and extended to include the lateral aspect of the knee. The vastus was reflected forwards and the length of the recent implant and the fracture exposed. There was still someseroma fluid in the proximal wound which was washed out clean and typical early healing with throughout the wound tissue. Old implant a The fracture was characterized with minimal dissection maximally preserving periosteum and reduction with spiked minimally invasive clamps whenever possible. Screws medial plate were removed to allowaccess to the canal planning a intramedullary implant and expiratory implant stabilization. Bone quality was poor in view of the presence of the hip replacement approximately a 10 hole narrow LCP plate was contoured to fit the medial side of the femur the fracture exposed and it was manipulated thedistal femur and then backed up into the proximal femur provide intramedullary splint. A lateral plate was then applied and adjusted to fit the leg just on top of and in front of the right proximal pl ate and screws were placed proximal to both a lateral cut it would not replace it provide full stabilization. Appropriate nonlocking screws were used first followed by locking screws and eventually the distal articular block stabilized by locking screws. Where possible the screws were placed into holes in 2 plates. The initial intraoperative x-rays confirmed good position before final screws wereplaced. The final position and fracture stabilization was excellent and was confirmed on x-ray. The wounds were washed and closed as required with Vycryl and clips to skin and a well padded dressing with hinged knee brace allowing free range was applied. The patient tolerated the procedure well, and was returned to recovery in good condition. Postop Overall plan Admitted patient for post op care as below, no further Orthopedic procedure planned. Analgesia - as charted in orders, limit Opiates & wean off as soon as possible. Antibiotics - Given with induction should continue for 24 hours. Anticoagulants - Low-molecular weight heparin while in hospital convert to aspirin on discharge Activity - elevated limb as appropriate Patient may PWB affected lower limb, ROM as tolerated and generally mobiize. Additional - leave wound until reviewed at postop visit. Review in office 2-3 weeks X-rays on arrival Elgin Baeza MD [facility] Please contact this office if there are questions. documented in this encounter Consult Notes * Koki Rasmussen MD - 05/15/2025 4:03 PM ESTAssociated Order(s): IP CONSULT TO INFECTIOUS DISEASES Infectious Diseases Consult 05/15/25 No ref. provider found Lilliam Levy MD Reason for Consultation: Osteomyelitiswith infected retained hardware Source of history: chart review and the patient Consult placed by: BURAK Romero History Of Present Illness (includes Chief Complaint): Isabella Díaz is a 84 y.o. female who has a past medical history of Atrial fibrillation ([facility]/HCCV24, CMS/[facility] V28) (01/17/2021), CHF (congestive heart failure) (CMS/HCC V24, CMS/HCC V28) (01/17/2021), Clostridium difficile diarrhea (03/26/2024), Depression (01/17/2021), Hypertension, NSTEMI (non-ST elevated myocardial infarction) (CMS/HCC V24, CMS/HCC V28) (01/17/2021), NSTEMI (non-ST elevatedmyocardial infarction) (CMS/HCC V24, CMS/HCC V28) (01/17/2021), Pubic ramus fracture (CMS/HCC V24, [facility] V28) (11/30/2021), and Takotsubo cardiomyopathy (01/17/2021).. The patient was admitted to the hospital on 05/01/2025 for non healing wound of hr right leg. She has suffered multiple falls in the past and had femur fx and had ORIF and an arthoplasty done on 04/03. Unfortunately, the wound didnot heal and she developed drainage and was taken to the OR for washout multiple time son 04/10 and04/13 and 04/15. She was discharged on 04/20. She was getting PT on 05/01 and then noted something pop and so came to the ER. Here, it was found that the wound was worsening. She was taken o the OR for washout on 05/13 and again today. Spoke with Ortho, they do feel there is hardware involvement butit cannot be removed due to her fractures. OR C/S from 05/13 growing Enterobacter plus Citrobacter.The ID service has been consulted for management during this patient's hospital stay. Past Medical History: Medical History[1] Surgical History: Surgical History[2] Family History: Family History[3] Social History: Social History[4] Allergies: Patient has no known allergies. Home Medications: Prior to Admission medications Medication Sig Start Date End Date Taking? Authorizing Provider apixaban (Eliquis) 2.5 mg tablet TAKE 1 TABLET BY MOUTH TWICE A DAY 10/09/24 Yes Bhaskar Becker MD atorvastatin (LIPITOR) 20 mg tablet Take 1 tablet (20 mg total) by mouth 1 (one) time each day. Patient taking differently: Take 1 tablet (20 mg total) by mouth at bedtime. 11/24/24 Yes Ronda Becker MD cholestyramine (QUESTRAN) 4 gram packet TAKE 1 PACKET BY MOUTH 2 TIMES A DAY WITH MEALS. Patient taking differently: Take 1 packet (4 g total) by mouth 2 (two) times a day with meals. 04/14/25 Yes Lilliam Levy MD dorzolamide (TRUSOPT) 2 % ophthalmic solution Administer 1 drop into the left eye 2 (two) times a day. Yes Historical Provider, latanoprost (XALATAN) 0.005 % ophthalmic solution Administer 1 drop into both eyes at bedtime. Yes Historical Provider, metoprolol succinate (TOPROL-XL) 25 mg 24 hr tablet TAKE 1 TABLET BY MOUTH EVERY DAY 10/14/24 Yes Bhaskar Becker MD PARoxetine (PAXIL) 20 mg tablet TAKE 1 TABLET BY MOUTH EVERY DAY IN THE MORNING 04/14/25 Yes BURAK Engle dorzolamide-timoloL (COSOPT) 22.3-6.8 mg/mL ophthalmic solution Administer 1 drop into both eyes 2 (two) times a day. Patient not taking: Reported on 05/01/2025 Historical ProviderMD multivit-min/iron/folic acid/K (ADULTS MULTIVITAMIN ORAL) Take by mouth daily. Patient not taking: Reported on 04/09/2025 Historical Provider, Current Medications: Current Medications[5] MEDSPRN[6] ROS: Review of Systems Constitutional: Negative. HENT: Negative. Respiratory: Negative. Cardiovascular: Negative. Gastrointestinal: Negative. Genitourinary: Negative. Musculoskeletal: Negative. Skin: Positive for wound. Neurological: Negative. Vital signs for last 24 hours: Temp: 36.4 ??C (97.6 ??F) (05/15 142) Heart Rate: 96 (05/15 142) Resp: 18 (05/15 142) BP: 138/90 (05/15 1517) Intake/Output this shift: I/O this shift: In: 320 [I.V.:300; IV Piggyback:20] Out: 1700 [Urine:1700] Physicial Exam Physical Exam Constitutional: Appearance: Normal appearance. HENT: Head: Normocephalic and atraumatic. Eyes: General: No scleral icterus. Cardiovascular: Rate and Rhythm: Normal rate and regular rhythm. Heart sounds: No murmur heard. No friction rub. No gallop. Pulmonary: Effort: No respiratory distress. Breath sounds: No stridor. No wheezing or rhonchi. Abdominal: General: There is no distension. Palpations: There is no mass. Tenderness: There is no abdominal tenderness. Hernia: No hernia is present. Musculoskeletal: General: Signs of injury present. No deformity. Comments: Wound vac in place Skin: Coloration: Skin is not jaundiced or pale. Neurological: General: No focal deficit present. Mental Status: She is alert and oriented to person, place, and time. Cranial Nerves: No cranial nerve deficit. Sensory: No sensory deficit. Results: Lab No results displayed because visit has over 200 results. Lab Results Component Value Date URINECX 08/24/2024 <10,000 CFU/mL gram negative bacilli, insignificant count, no further workup Recent Results (from the past week) Culture wound deep Collection Time: 05/13/25 10:22 AM Specimen: Thigh, Right; Swab Result Value Ref Range Culture, Wound Enterobacter cloacae complex (A) Culture, Wound Citrobacter sedlakii (A) Gram Stain Result Few Polymorphonuclear leukocytes Gram Stain Result No epithelial cells seen Gram Stain Result No organisms seen Susceptibility Citrobacter sedlakii - SAUL Amoxicillin/Clavulanate Resistant ug/ml Cefoxitin Resistant ug/ml Ceftazidime Susceptible ug/ml Ceftriaxone Susceptible ug/ml Cefepime Susceptible ug/ml Meropenem Susceptible ug/ml Amikacin Susceptible ug/ml Gentamicin Susceptible ug/ml Ciprofloxacin Susceptible ug/ml Levofloxacin Susceptible ug/ml Trimethoprim/Sulfamethoxazole Susceptible ug/ml Enterobacter cloacae complex - SAUL Amoxicillin/Clavulanate Resistant ug/ml Cefoxitin Resistant ug/ml Ceftazidime Susceptible ug/ml Cefepime Susceptible ug/ml Meropenem Susceptible ug/ml Amikacin Susceptible ug/ml Gentamicin Susceptible ug/ml Ciprofloxacin Susceptible ug/ml Levofloxacin Susceptible ug/ml Trimethoprim/Sulfamethoxazole Susceptible ug/ml Culture wound deep Collection Time: 05/13/25 10:24 AM Specimen: Hip, Right; Swab Result Value Ref Range Culture, Wound Enterobacter cloacae complex (A) Gram Stain Result Few Polymorphonuclear leukocytes Gram Stain Result No epithelial cells seen Gram Stain Result No organisms seen Susceptibility Enterobacter cloacae complex - SAUL Amoxicillin/Clavulanate Resistant ug/ml Cefoxitin Resistant ug/ml Ceftazidime Susceptible ug/ml Cefepime Susceptible ug/ml Meropenem Susceptible ug/ml Amikacin Susceptible ug/ml Gentamicin Susceptible ug/ml Ciprofloxacin Susceptible ug/ml Levofloxacin Susceptible ug/ml Trimethoprim/Sulfamethoxazole Susceptible ug/ml Culture wound deep Collection Time: 05/13/25 10:25 AM Specimen: Hip, Right; Swab Result Value Ref Range Culture, Wound Enterobacter cloacae complex (A) Culture, Wound Citrobacter sedlakii (A) Gram Stain Result Few Polymorphonuclear leukocytes Gram Stain Result No epithelial cells seen Gram Stain Result No organisms seen Susceptibility Citrobacter sedlakii - SAUL Amoxicillin/Clavulanate Resistant ug/ml Cefoxitin Resistant ug/ml Ceftazidime Susceptible ug/ml Ceftriaxone Susceptible ug/ml Cefepime Susceptible ug/ml Meropenem Susceptible ug/ml Amikacin Susceptible ug/ml Gentamicin Susceptible ug/ml Ciprofloxacin Susceptible ug/ml Levofloxacin Susceptible ug/ml Trimethoprim/Sulfamethoxazole Susceptible ug/ml Enterobacter cloacae complex - SAUL Amoxicillin/Clavulanate Resistant ug/ml Cefoxitin Resistant ug/ml Ceftazidime Susceptible ug/ml Cefepime Susceptible ug/ml Meropenem Susceptible ug/ml Amikacin Susceptible ug/ml Gentamicin Susceptible ug/ml Ciprofloxacin Susceptible ug/ml Levofloxacin Susceptible ug/ml Trimethoprim/Sulfamethoxazole Susceptible ug/ml Radiology: XR Femur 1 View Right Narrative: History: Postop right femur fracture repair. Comparison: 05/01/25 (preop). Findings: Portable AP views of the right femur from 11:40 AM are submitted from the PACU. The patient has undergone interim open reduction and internal fixation of a distal femoral diaphyseal fracture which occurred just distal to the most inferior surgical screw of a pre-existing long metal sideplate. There are 2 new metal side plates along the distal femur now, one on the lateral sideextending from the mid diaphysis to the distal metaphysis and a second, shorter plate extending from the distal diaphysis to the distal metaphysis, traversing the fracture. The major fracture fragments are in anatomic alignment. 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 Lateral skin carmel are noted. Impression: Impression: New postop changes in the distal femur, with 2 additional sideplates placed, traversing the acute distal femoral diaphyseal fracture. Alignment of the major fracture fragments is anatomic. Romeo SUMNER ([id number]) -------- FINAL REPORT -------- Dictated By: Carmen Prado Dictated Date: 05/13/2025 16:08 ET Assigned Physician: Carmen Prado Reviewed and Electronically Signed By: Carmen Prado Signed Date: 05/13/2025 16:13 ET Workstation ID: [id number] Transcribed By: Self Edit Transcribed Date: 05/13/2025 16:08 ET XR Hip 1 View Right Narrative: XR HIP 1 VIEW RIGHT INDICATION: Post-op evaluation following repair in pacu TECHNIQUE: XR HIP 1 VIEW RIGHT COMPARISON: None Impression: FINDINGS/IMPRESSION: Immediate postoperative radiograph with expected recent postsurgical changes in the adjacent soft tissues. See operative report for further details. Right hip arthroplasty with plate and screw fixation of the proximal femur remote pubic rami fractures and significant degenerative changes of the lumbar spine. -------- FINAL REPORT -------- Dictated By: Henry Forrester Dictated Date: 05/13/2025 13:18 ET Assigned Physician: Henry Forrester Reviewed and Electronically Signed By: Henry Forrester Signed Date: 05/13/2025 13:19 ET Workstation ID: [id number] Transcribed By: Self Edit Transcribed Date: 05/13/2025 13:18 ET Assessment/Plan History Of Present Illness (includes Chief Complaint): Isabella Díaz is a 84 y.o. female who has a past medical history of Atrial fibrillation ([facility] V28) (01/17/2021), CHF (congestive heart failure) ([facility] V24, [facility] V28) (01/17/2021), Clostridium difficile diarrhea (03/26/2024), Depression (01/17/2021), Hypertension, NSTEMI (non-ST elevated myocardial infarction) ([facility] V24, [facility] V28) (01/17/2021), NSTEMI (non-ST elevatedmyocardial infarction) ([facility] V24, [facility] V28) (01/17/2021), Pubic ramus fracture ([facility] V24, [facility] V28) (11/30/2021), and Takotsubo cardiomyopathy (01/17/2021).. The patient was admitted to the hospital on 05/01/2025 for non healing wound of hr right leg. She has suffered multiple falls in the past and had femur fx and had ORIF and an arthoplasty done on 04/03. Unfortunately, the wound didnot heal and she developed drainage and was taken to the OR for washout multiple time son 04/10 and04/13 and 04/15. She was discharged on 04/20. She was getting PT on 05/01 and then noted something pop and so came to the ER. Here, it was found that the wound was worsening. She was taken o the OR for washout on 05/13 and again today. Spoke with Ortho, they do feel there is hardware involvement butit cannot be removed due to her fractures. OR C/S from 05/13 growing Enterobacter plus Citrobacter.The ID service has been consulted for management during this patient's hospital stay. Osteomyelitis associated with hardware The t has wound dehiscence with involvement of hardware from fracture I am starting the Pt on Vy based on C/S Await finalisation of C/S Will likely need suppressive Abx due to hardware being retained will decided based on final C/S D/w Ortho Recommendations: I am starting the pt on Vy 1 g Q8 Await finalisation of OR C/S Appreciate Ortho input I personally spent 61 minutes in this encounter. This included performing a detailed chart review, reviewing and independently interpreting labs and other tests ordered by other providers, performinga history and physical, counseling the patient/family, discussing the case with primary team and Ortho coordinating his/her/their plan of care and placing orders, m. 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 Please do not hesitate to contact me via EpicChat with issues or questions Koki Rasmussen MD [1] Past Medical History: Diagnosis Date Atrial fibrillation ([facility] V24, [facility] V28) 01/17/2021 DX:Atrial fibrillation (HCC) CHF (congestive heart failure) ([facility] V24, [facility] V28) 01/17/2021 DX:CHF (congestive heart failure) ([facility]) Clostridium difficile diarrhea 03/26/2024 DX:Clostridium difficile diarrhea Depression 01/17/2021 DX:Depression Hypertension NSTEMI (non-ST elevated myocardial infarction) ([facility] V24, [facility] V28) 01/17/2021 DX:NSTEMI (non-ST elevated myocardial infarction) ([facility]); COMMENT: 12/2020 Dr Eller, holter monitor and cardiac cath as outpt. NSTEMI (non-ST elevated myocardial infarction) ([facility] V24, [facility] V28) 01/17/202112/2020 Dr Eller, holter monitor and cardiac cath as outpt. Pubic ramus fracture ([facility] V24, [facility] V28) 11/30/2021 DX:Pubic ramus fracture ([facility]) Takotsubo cardiomyopathy 01/17/2021 DX:Takotsubo cardiomyopathy [2] Past Surgical History: Procedure Laterality Date JOINT REPLACEMENT OTHER SURGICAL HISTORY PROCEDURE: HISTORICAL MITRAL VALVE REPL OTHER SURGICAL HISTORY PROCEDURE: HISTORY OTHER; COMMENT: right humerus fracture TONSILLECTOMY PROCEDURE: HISTORICAL TONSILLECTOMY [3] Family History Problem Relation Name Age of Onset Heart attack Maternal Grandfather [4] Social History Tobacco Use Smoking status: Former Current packs/day: 0.00 Average packs/day: 0.5 packs/day Types: Cigarettes Quit date: 11/23/2020 Years since quittin.4 Smokeless tobacco: Never Vaping Use Vaping status: Never Used Substance Use Topics Alcohol use: Yes Alcohol/week: 1.0 standard drink of alcohol Types: 1 Glasses of wine per week Comment: once a week Drug use: Never [5] Current Facility-Administered Medications: acetaminophen (TYLENOL) tablet 650 mg, 650 mg, oral, q6h PRN, BURAK Davis, 650 mg at 05/14/25 0917 atorvastatin (LIPITOR) tablet 20 mg, 20 mg, oral, Nightly, BURAK Davis, 20 mg at 05/14/252130 cholecalciferol (VITAMIN D-3) capsule 50,000 Units, 50,000 Units, oral, Weekly, BURAK Davis, 50,000 Units at 05/10/25 0832 cholestyramine (QUESTRAN) 4 gram packet 4 g, 4 g, oral, BID with meals, BURAK Davis, 4 g at 05/14/25 1724 dorzolamide (TRUSOPT) 2 % ophthalmic solution 1 drop, 1 drop, Both Eyes, BID, BURAK Davis,1 drop at 05/15/25 08 [START ON 05/16/2025] enoxaparin (LOVENOX) injection 40 mg, 40 mg, subcutaneous, Daily, BURAK Davis HYDROmorphone (DILAUDID) injection 0.5 mg, 0.5 mg, intravenous, q3h PRN, BURAK Davis latanoprost (XALATAN) 0.005 % ophthalmic solution 1 drop, 1 drop, Both Eyes, Nightly, BURAK Davis, 1 drop at 05/14/252131 meropenem (MERREM) 1 g in sodium chloride 0.9 % 100 mL IVPB, 1 g, intravenous, q12h, Koki Rasmussen MD metoprolol succinate (TOPROL-XL) 24 Hour tablet 25 mg, 25 mg, oral, Daily, BURAK Davis, 25mg at 05/15/25826 naloxone (NARCAN) injection 0.04 mg, 0.04 mg, intravenous, PRN, BURAK Davis ondansetron (PF) (ZOFRAN) injection 4 mg, 4 mg, intravenous, q6h PRN, BURAK Davis, 4 mg at107/05/24 1257 oxyCODONE (ROXICODONE) immediate release tablet 2.5 mg, 2.5 mg, oral, q4h PRN, BURAK Davis oxyCODONE (ROXICODONE) immediate release tablet 5 mg, 5 mg, oral, q4h PRN, BURAK Davis, 5 mg at 05/14/252130 PARoxetine (PAXIL) tablet 20 mg, 20 mg, oral, q AM, BURAK Davis, 20 mg at 05/15/25 0633 polyethylene glycol (MIRALAX) packet 17 g, 17 g, oral, Nightly, BURAK Davis, 17 g at 05/13/252051 Insert peripheral IV, , , Once AND Maintain IV access, , , Until discontinued AND Saline lock IV, , , Once AND sodium chloride 0.9 % flush 10 mL, 10 mL, intravenous, BID, 10 mL at 05/15/25 0827 AND sodium chloride 0.9 % flush 10 mL, 10 mL, intravenous, PRN, BURAK Davis sodium chloride 0.9 % infusion, 42 mL/hr, intravenous, PRN, BURAK Davis, Last Rate: 42 mL/hr at 05/06/25 1200, 42 mL/hr at 05/06/25 1200 sodium chloride 0.9 % infusion, 42 mL/hr, intravenous, PRN, BURAK Davis sodium chloride 0.9 % infusion, 42 mL/hr, intravenous, PRN, BURAK Davis [6] PRN medications: acetaminophen, HYDROmorphone, naloxone, ondansetron, oxyCODONE, oxyCODONE, Insert peripheral IV AND Maintain IV access AND Saline lock IV AND sodium chloride AND sodium chloride, sodium chloride, sodium chloride, sodium chloride * Rut You RD - 05/04/2025 12:22 PM ESTAssociated Order(s): IP CONSULT TO NUTRITION SERVICES 05/04/2025 @ 12:22 PM EST Nutrition Consult Note/Nutrition Assessment Reason for RD Intervention: Assessment Type: Provider Consult Reason for Assessment: High MST Score Anthropometrics: Height: 165.1 cm (65 ) Weight: 46.7 kg (103 lb) Weight Method: Stated Frame Size: Small BMI (Calculated): 17.1 BMI Class: Underweight IBW (lbs): 125 UBW (lbs): 120 Recent Weight Change: Yes (ongoing weight loss, time frame unclear) Current Diet and Supplements: Dietary Orders (From admission, onward) Start Ordered 05/05/25 0001 Adult NPO diet Location: [facility]; Diet: NPO- Except for Medications Diet effective midnight Question Answer Comment Location [facility] Diet NPO- Except for Medications 05/04/25 0829 05/04/25 1028 Dietary nutrition supplements Lunch; [facility]; Standard Oral Supplement Continuous Comments: chocolate Question Answer Comment Frequency Lunch Location [facility] Supplements Standard Oral Supplement 05/04/25 1027 05/04/25 0830 Adult diet [facility]; General, Cardiac; Regular; Cardiac Diet effective now Question Answer Comment Location [facility] Diet Type (req) General Diet Type (req) Cardiac General Diet Regular Diet Type (cardiac) Cardiac 05/04/25 0829 History of presenting illness: Patient is a 84 y.o. female with a history of Medical History[1] Surgical History[2] admitted 05/01/2025 with Periprosthetic fracture around prosthetic joint, initial encounter. Food/Nutrition History: Previous Diet / Nutrition Education / Counseling: Pt report she eats what she wants at home, deniesfood allergies, denies food insecurities. Pt states she gets Meals on Wheels, prepares other meals for herself. Pt reports weight loss over time, not intentional, but gradual. Appetite DATA ANALYTICS DEVELOPER: Good Intake DATA ANALYTICS DEVELOPER: Stable Vitamins/Minerals/Herbs: Pt reports she takes a multivitamin at home Social Influencers of Health & Nutrition - Hunger Vital Signs: Within the past 12 months we worried whether our food would run out before we got money to buy more: Never true Within the past 12 months the food we bought just didn't last and we didn't have money to get more: Never true Who obtained answers? Hunger vital signs completed by other discipline. Assistance: No assistance needed at this time Weight History: Wt Readings from Last 10 Encounters: 05/01/25 46.7 kg (103 lb) 04/09/25 (!) 40.8 kg (90 lb) 04/01/25 (!) 40.8 kg (90 lb) 03/13/25 (!) 40.8 kg (90 lb) 03/06/25 (!) 41.9 kg (92 lb 6.4 oz) 02/11/25 (!) 41.9 kg (92 lb 6.4 oz) 11/24/24 (!) 41.1 kg (90 lb 9.6 oz) 09/16/24 (!) 41.9 kg (92 lb 6.4 oz) 09/04/24 (!) 41.1 kg (90 lb 9.6 oz) 08/24/24 49.9 kg (110 lb) Subjective Assessment: Pt seen for MST score consult, admitted with periprosthetic femur fracture. Pt reports veyr good appetite today, and stable appetite prior to admission. Pt denies nausea/vomiting, denies chewing/swallowing issues, last +BM 05/01 per [facility]. Pt reports ongoing gradual weight loss, states last recorded weight was 103, however [facility] weight history shows consistent weights of 90-92lbs for the past 8 months; requested scaled weight from RN. If actual current weight is consistent with documented weight history, BMI likely 15, not 17. Pt meets criteria for severe chronic malnutrition. Pt asking for Ensure; added with lunch daily, may increase frequency on follow up. Nutrition-Related Lab Values: Results from last 7 days Lab Units 05/04/25 0700 SODIUM mmol/L 140 POTASSIUM mmol/L 3.8 PHOSPHORUS mg/dL 3.5 MAGNESIUM mg/dL 1.9 CHLORIDE mmol/L 106 CO2 mmol/L 30 BUN mg/dL 14 CREATININE mg/dL 0.60 EGFR mL/min/1.73m2 90 CALCIUM mg/dL 8.5 BILIRUBIN TOTAL mg/dL 0.7 ALK PHOS unit/L 77 ALT unit/L 15 AST unit/L 13 GLUCOSE mg/dL 92 WBC AUTO K/mcL 7.4 No results found for: LIPASE Medications: MEDSSCHEDULED[3] CONTINUOUS: MEDSCONTINUOUS[4] MEDSPRN[5] Energy Needs: kcal, gm protein, mL fluid per day. Total Energy Estimated Needs: Based on stated weight 46 k - 1840 (35 - 40kcal/kg), 46 - 55g protein/day (1 - 1.2g/kg), 1ml/kcal fluid Height: 165.1 cm (65 ) Temp: 37.1 ??C (98.7 ??F) Food/Nutrition-Current Status: Intake Type: P.O. Current Diet Status: Appropriate Appetite: Good Intake Amount (%): 75-100% (% meal intake not recorrded, but pt at 75-100% of breakfast) Intake Assessment: Adequate Nutrition Focused Physical Findings: Overall Appearance: Moderate to severe losses to temporal, orbital, buccal, clavicle, shoulder, tricep, and interroseous regions. Nerves and Cognition: Alert, Oriented Skin: wound incision to right thigh, pressure wound to coccyx, not staged, noted to be healed per Epic documentation Loss of Fat Location: Orbital, Buccal, Triceps Loss of Fat Amt-Orbital: Severe Loss of Fat Amt-Buccal: Moderate Loss of Fat Amt-Triceps: Severe Loss of Muscle Location: Temples, Clavicle, Shoulders, Interosseous Loss of Muscle Amt-Temples: Moderate Loss of Muscle Amt-Clavicle: Severe Loss of Muscle Amt-Shoulders: Moderate Loss of Muscle Amt-Inter Musc: Severe Nutrition Diagnosis: Code Type: Severe-Chronic (E43) Severe-Chronic Criteria: Severe Body Fat Depletion, Severe Muscle Mass Depletion Status: New Diagnosis: Malnutrition Etiology: Changes in taste and appetite or preference, Physiologic causes Symptoms: Pt with moderate and severe muscle and fat losses to multilple regions per nutrition focused physical exam, ongoing weight loss per pt. Nutrition Interventions: Medical Food Supplement, Diet Order, Collaboration and Referral of Nutrition Care Will start Ensure Plus High Protein given suspected inadequate intake; adjust as needed on follow up. Monitor weights, labs, po intake - requested new scaled weight Medical Food Supplement(s): Ensure Plus (ensure plus high protein) Diet Order: Other (Comment) (Cardiac) Collaboration and Referral of Nutrition Care: Collaborate with Other Providers Nutrition Education Education not provided at this time. Goals: Patient will consume greater than or equal to 75% meals., Patient will consume ONS., Electrolytes within normal range., Maintain weight., Stooling appropriately., and Maintain skin integrity. Coordination of Patient Care: Discussed with RN via [employer] Secure Chat/Haiku. , Care plan discussed with patient/family., and Malnutrition OPA sent to provider via [employer] Monitoring/Evaluation: Fluid/Beverage Intake, Food Intake, Medical Food Supp/Oral Nutrition Supp, Weight, Renal/Electrolyte Profile, Gastrointestinal Profile, Diet Order Follow Up: Nutrition Priority Level: High RD remains available and will continue to follow. Signature: Rut You RD [1] Past Medical History: Diagnosis Date Atrial fibrillation ([facility], [facility] V28) 01/17/2021 DX:Atrial fibrillation ([facility]) CHF (congestive heart failure) ([facility], [facility] V28) 01/17/2021 DX:CHF (congestive heart failure) ([facility]) Clostridium difficile diarrhea 03/26/2024 DX:Clostridium difficile diarrhea Depression 01/17/2021 DX:Depression Hypertension NSTEMI (non-ST elevated myocardial infarction) ([facility], [facility] V28) 01/17/2021 DX:NSTEMI (non-ST elevated myocardial infarction) ([facility]); COMMENT: 12/2020 Dr Eller, holter monitor and cardiac cath as outpt. NSTEMI (non-ST elevated myocardial infarction) ([facility], [facility] V28) 01/17/202112/2020 Dr Eller, holter monitor and cardiac cath as outpt. Pubic ramus fracture ([facility], [facility]) 11/30/2021 DX:Pubic ramus fracture ([facility]) Takotsubo cardiomyopathy 01/17/2021 DX:Takotsubo cardiomyopathy [2] Past Surgical History: Procedure Laterality Date JOINT REPLACEMENT OTHER SURGICAL HISTORY PROCEDURE: HISTORICAL MITRAL VALVE REPL OTHER SURGICAL HISTORY PROCEDURE: HISTORY OTHER; COMMENT: right humerus fracture TONSILLECTOMY PROCEDURE: HISTORICAL TONSILLECTOMY [3] atorvastatin, 20 mg, oral, Nightly cholecalciferol, 50,000 Units, oral, Weekly cholestyramine, 4 g, oral, BID with meals dorzolamide, 1 drop, Both Eyes, BID ferric gluconate, 125 mg, intravenous, Daily latanoprost, 1 drop, Both Eyes, Nightly metoprolol succinate, 25 mg, oral, Daily PARoxetine, 20 mg, oral, q AM polyetheylene glycol, 17 g, oral, Nightly sodium chloride, 10 mL, intravenous, BID thiamine, 200 mg, intravenous, q24h [4] [5] PRN medications: acetaminophen, HYDROmorphone, naloxone, ondansetron, oxyCODONE, Insert peripheral IV AND Maintain IV access AND Saline lock IV AND sodium chloride AND sodium chloride * Brian Baeza MD - 05/02/2025 9:32 AM EST DIAGNOSIS/ PLAN : Secondary fracture right distal femur for operative treatment. I have assessed this patient today. I personally saw and examined the patient, reviewed the generalhistory, examination, relevant vitals and medications appropriate to our specialist care. I reviewed any relevant imaging and performed the relevant medical decision making. The major facts and general medical history are as in the previous, recent records which I have reviewed. The patient was just chronically presented to the emergency room yesterday. She is a known patient who approximately a month ago suffered a subtrochanteric fracture right femur and associated significant hip arthritis. This was treated with total hip replacement and femoral fixation, the initial recovery was complicated by a seroma which required an I&D which was not infected. She subsequently went on to recover well but had a fall yesterday was walking on some stairs and now has suffered afracture of the right femur in the area of the distal screw hole of the plate. Assessment this morning she is comfortable, alert and fully orientated. The new injury is closed isolated to the limb jill rovascular intact and now comfortable in a knee immobilizer. Review of the x-rays suggest this is a high supracondylar fracture of the right distal femur to thedistal screw hole of the plate on clinical assessment the wound is fully healthy although carmel are still in place and the limb is clearly neurovascular intact. This is extremely complex fracture to repair, I suggest this will require 2 plating that is likely failed because of bone quality and although was a screw at this level the stress riser was limited by stopping hip short of this. We should plan a lateral and intraosseous fixation to spread the load over the distal femur we are looking at doing surgery on Sunday or more likely Sunday when equipment is available. I noted her current hemoglobin is 8.5 she will require blood crossmatched with surgery. Please maken.p.o. Sunday evening, it may be possible to do this on Sunday. As fully as possible, I have explained the problem and its management and reviewed the patients / family agenda and all questions relevant to this problem were answered. We discussed the management plan and agreed to proceed as described above. Elgin Baeza MD [facility] surgical colleagues Orthopaedic Trauma Service Please contact this office if there are questions. documented in this encounter Miscellaneous Notes * ED Bed Hold Note - Mercedes Harmon RN - 05/01/2025 2:31 PM EST Bed: RD-01 Expected date: Expected time: Means of arrival: Comments: fall documented in this encounter Plan of Treatment Upcoming Encounters Date Type Department Care Team (Late st Contact Info) Description 05/22/2025 7:30 AM EST - 05/22/2025 9:00 AM EST Surgery [facility] Main OR [address] [place] [phone] Gris Mojica MD [address] [place] [id number] DEBRIDEMENT WOUND RIGHT DISTAL FEMUR 05/27/2025 11:00 AM EST Office Visit General Surgery - [place] [address] [facility] [address] [place] [phone] Marcellus Powell DO [address] [place] [phone] 06/02/2025 3:15 PM EST Appointment Bone Density - [address] [phone] 06/11/2025 2:30 PM EST Office Visit Adult Medicine - [place] [address] [place] [phone] Lilliam Levy MD [address] [place] [address] 08/06/2025 10:50 AM EST Office Visit [facility] [address] [facility] [address] [place] [phone] Bhaskar Becker MD [address] [place] [address] [place] [phone] Scheduled Orders Name Type Priority Associated Diagnoses Orde r Schedule ECG 12 lead PRN ECG Routine As needed until discontinued starting 05/01/2025 Type and screen Lab Routine Once for 1 Occurrences starting 05/21/2025 until 05/21/2025 Scheduled Procedures Name Priority Associated Diagnoses Date/Ti me DEBRIDEMENT WOUND Open wound of right lower extremity, sequela Infection associated with internal fixation device of right femur, subsequent encounter 05/22/2025 7:30 AM EST documented as of this encounter Goals Goal Patient Goal Type Associated Problems Recent Progress Patient-Stated? Author Autogenera renteria Goal Care Plan Autogenerated Problem No Sindi Jennings PA Autogenera myra Goal Care Plan Autogenerated Problem No Honorio Jean-Baptiste PA Autogenera renteria Goal Care Plan Autogenerated Problem No Honorio Jean-Baptiste PA Autogenera renteria Goal Care Plan Autogenerated Problem No Honorio Jean-Baptiste PA documented as of this encounter Procedures * The patient is currently admitted. The information in this section might not be complete until the patient is discharged. Procedure Name Priority Date/Time Associated Diagnosis Comments XR PELVIS 1-2 VIEWS Routine 05/18/2025 2 :36 PM EST OXYGEN THERAPY, ADULT Routine 05/18/2025 2:04 PM EST INCISION DRAINAGE EXTREMITY LOWER 05/18/2025 12:58 PM EST Open wound of right lower extremity, sequela Case Notes Repeat I+D of right hip wound on 05/18, please have wound vac supplies available COMPLETE BLOOD COUNT Routine 05/18/2025 6:21 AM EST MAGNESIUM Routine 05/18/2025 6:21 AM EST BASIC METABOLIC PANEL Routine 05/18/2025 6:21 AM EST SST - GOLD Routine 05/17/2025 8:56 AM EST EXTRA TUBES Routine 05/17/2025 8:56 AM EST CBC WITH AUTO DIFFERENTIAL Routine 05/17/2025 8:56 AM EST CBC AND DIFFERENTIAL Routine 05/17/2025 8:56 AM EST COMPLETE BLOOD COUNT Routine 05/16/2025 6:31 AM EST PHOSPHORUS Routine 05/16/2025 6:31 AM EST MAGNESIUM Routine 05/16/2025 6:31 AM EST BASIC METABOLIC PANEL Routine 05/16/2025 6:31 AM EST URINALYSIS WITH REFLEX MICROSCOPIC AND CULTURE Routine 05/15/2025 4:37 PM EST SOLORZANO URINE CULTURE TUBE Routine 05/15/2025 4:37 PM EST URINALYSIS WITH REFLEX MICROSCOPIC AND CULTURE Routine 05/15/2025 4:37 PM EST CULTURE URINE Routine 05/15/2025 4:37 PM EST OXYGEN THERAPY, ADULT Routine 05/15/2025 12:[address] INCISION & DRAINAGE ABSCESS COMPLICATED/MULTIPLE 05/15/2025 11:49 AM EST Hematoma of left thigh, subsequent encounter Case Notes cystotubing, saline, VAC, lateral/beanbag, standard bed, case #2 CBC WITH AUTO DIFFERENTIAL Routine 05/15/2025 5:51 AM EST CBC AND DIFFERENTIAL Routine 05/15/2025 5:51 AM EST BASIC METABOLIC PANEL Routine 05/15/2025 5:51 AM EST COMPLETE BLOOD COUNT Routine 05/14/2025 7:07 AM EST BASIC METABOLIC PANEL Routine 05/14/2025 7:07 AM EST XR FEMUR 1 VIEW RIGHT Routine 05/13/2025 11:58 AM EST XR HIP 1 VIEW RIGHT Routine 05/13/2025 1 1:58 AM EST OXYGEN THERAPY, ADULT Routine 05/13/2025 10:51 AM EST OXYGEN THERAPY, ADULT Routine 05/13/2025 10:51 AM EST CULTURE WOUND DEEP Routine 05/13/2025 10 :25 AM EST Hematoma CULTURE WOUND DEEP Routine 05/13/2025 10 :24 AM EST Hematoma CULTURE WOUND DEEP Routine 05/13/2025 10 :[address] INCISION AND DRAINAGE LEG OR ANKLE DEEP ABSCESS OR HEMATOMA 05/13/2025 9:46 AM EST Case Notes case #2: cysto tubing, saline, lateral position ambrocio bag, regular table, possible drain possible VAC, culture swabs CBC WITH AUTO DIFFERENTIAL Routine 05/13/2025 6:01 AM EST CBC AND DIFFERENTIAL Routine 05/13/2025 6:01 AM EST BASIC METABOLIC PANEL Routine 05/13/2025 6:01 AM EST CBC WITH AUTO DIFFERENTIAL Routine 05/12/2025 5:45 AM EST CBC AND DIFFERENTIAL Routine 05/12/2025 5:45 AM EST BASIC METABOLIC PANEL Routine 05/12/2025 5:45 AM EST CBC WITH AUTO DIFFERENTIAL Routine 05/11/2025 6:16 AM EST CBC AND DIFFERENTIAL Routine 05/11/2025 6:16 AM EST SST - GOLD Routine 05/11/2025 6:14 AM EST EXTRA TUBES Routine 05/11/2025 6:14 AM EST CBC WITH AUTO DIFFERENTIAL Routine 05/10/2025 6:01 AM EST CBC AND DIFFERENTIAL Routine 05/10/2025 6:01 AM EST BASIC METABOLIC PANEL Routine 05/10/2025 6:01 AM EST TRANSFUSE RED BLOOD CELLS Routine 05/09/2025 3:56 PM EST TYPE AND SCREEN Routine 05/09/2025 1:41 PM EST PREPARE RBC Routine 05/09/2025 1:28 PM EST POCT GLUCOSE BLOOD Routine 05/09/2025 7: 56 AM EST CBC WITH AUTO DIFFERENTIAL Routine 05/09/2025 6:51 AM EST CBC AND DIFFERENTIAL Routine 05/09/2025 6:51 AM EST SST - GOLD Routine 05/09/2025 6:48 AM EST EXTRA TUBES Routine 05/09/2025 6:48 AM EST CBC WITH AUTO DIFFERENTIAL Routine 05/08/2025 7:01 AM EST CBC AND DIFFERENTIAL Routine 05/08/2025 7:01 AM EST BASIC METABOLIC PANEL Routine 05/08/2025 7:01 AM EST PREPARE RBC Routine 05/07/2025 9:11 AM EST CBC WITH AUTO DIFFERENTIAL Routine 05/07/2025 6:35 AM EST CBC AND DIFFERENTIAL Routine 05/07/2025 6:35 AM EST BASIC METABOLIC PANEL Routine 05/07/2025 6:34 AM EST TRANSFUSE RED BLOOD CELLS Routine 05/06/2025 9:39 AM EST PREPARE RBC Routine 05/06/2025 8:34 AM EST COMPLETE BLOOD COUNT Routine 05/06/2025 6:22 AM EST BASIC METABOLIC PANEL Routine 05/06/2025 6:22 AM EST XR FEMUR 2+ VIEWS RIGHT Routine 05/05/2025 1:[address] OPEN TX FEMORAL FX DISTAL END/MEDIAL/LATERAL CONDYLE INCL INTERNAL FIXN 05/05/2025 11:27 AM EST Periprosthetic fracture of femur at tip of prosthesis, initial encounter Case Notes C-ARM, alvarez flat top table, globus distal lateral femoral plating, synthes large frag set, table top plate benders CBC WITH AUTO DIFFERENTIAL Routine 05/05/2025 6:15 AM EST CBC AND DIFFERENTIAL Routine 05/05/2025 6:15 AM EST BASIC METABOLIC PANEL Routine 05/05/2025 6:15 AM EST TYPE AND SCREEN STAT 05/04/2025 3:25 PM EST PREPARE RBC Routine 05/04/2025 2:56 PM EST CBC WITH AUTO DIFFERENTIAL Routine 05/04/2025 7:00 AM EST PROTHROMBIN TIME WITH INR Routine 05/04/2025 7:00 AM EST CBC AND DIFFERENTIAL Routine 05/04/2025 7:00 AM EST PHOSPHORUS Routine 05/04/2025 7:00 AM EST MAGNESIUM Routine 05/04/2025 7:00 AM EST COMPREHENSIVE METABOLIC PANEL Routine 05/04/2025 7:00 AM EST SST - GOLD Routine 05/03/2025 6:48 AM EST EXTRA TUBES Routine 05/03/2025 6:48 AM EST HEMOGLOBIN AND HEMATOCRIT Routine 05/03/2025 6:48 AM EST CBC WITH AUTO DIFFERENTIAL Routine 05/02/2025 6:48 AM EST IRON AND TIBC Add-On 05/02/2025 6:48 AM EST VITAMIN D 25 HYDROXY Add-On 05/02/2025 6:48 AM EST CBC AND DIFFERENTIAL Routine 05/02/2025 6:48 AM EST MAGNESIUM Routine 05/02/2025 6:48 AM EST VITAMIN B12 Add-On 05/02/2025 6:48 AM EST BASIC METABOLIC PANEL Routine 05/02/2025 6:48 AM EST CBC WITH AUTO DIFFERENTIAL STAT 05/01/2025 4:31 PM EST CBC AND DIFFERENTIAL STAT 05/01/2025 4:31 PM EST TYPE AND SCREEN STAT 05/01/2025 4:31 PM EST COMPREHENSIVE METABOLIC PANEL STAT 05/01/2025 4:31 PM EST XR KNEE 1-2 VIEWS RIGHT STAT 05/01/2025 3:46 PM EST XR FEMUR 2+ VIEWS RIGHT STAT 05/01/2025 3:46 PM EST XR HIP 2-3 VIEWS RIGHT STAT 05/01/2025 3:46 PM EST documented in this encounter Results * XR Pelvis 1-2 Views (05/18/2025 2:36 PM EST) Anatomical Region Laterality Modality Body, Pelvis Radiographic Alessandra ging 05/19/2025 7:14 AM EST Impressions 05/19/2025 7:19 AM EST Extensive postsurgical changes involving the right femur and hip. Numerous old fractures. -------- FINAL REPORT -------- Dictated By: Ajit Pugh Dictated Date: 05/19/2025 07:14 ET Assigned Physician: Ajit Pugh Reviewed and Electronically Signed By: Ajit Pugh Signed Date: 05/19/2025 07:19 ET Workstation ID: [id number] Transcribed By: Self Edit Transcribed Date: 05/19/2025 07:14 ET Narrative 05/19/2025 7:19 AM EST EXAMINATION: PELVIS CLINICAL INFORMATION: Postop COMPARISON: Frontal view 04/10/25 TECHNIQUE: Portable supine view of the pelvis FINDINGS: The upper portion of the right iliac bone is excluded. The SI joints appear intact. The symphysis is likely unchanged. The left hip appears in normal alignment. There has been extensive instrumentation in the region of the right hip and visualized right femur including opaque femoral components and multiple plates and screws. There is opaque material adjacent to the expected region of the lesser trochanter. Findings suggest previous osteotomy of the distal femoral neck on the right. There is opaque cement involving the right acetabulum. Underlying bone detail is obscured. There are extensive callus formation involving the pubic bones bilaterally. Soft tissue calcifications and probable swelling in the soft tissues adjacent to the right proximal femur laterally. Since the previous study the upper aspect of a plate and screws applied along the lateral aspect of the mid shaft of the right femur appears new. Procedure Note Ajit Pugh MD - 05/19/2025 EXAMINATION: PELVIS CLINICAL INFORMATION: Postop COMPARISON: Frontal view 04/10/25 TECHNIQUE: Portable supine view of the pelvis FINDINGS: The upper portion of the right iliac bone is excluded. The SI joints appear intact. The symphysis is likely unchanged. The lefthip appears in normal alignment. There has been extensive instrumentation in the region of the right hipand visualized right femur including opaque femoral components andmultiple plates and screws. There is opaque material adjacent to theexpected region of the lesser trochanter. Findings suggest previousosteotomy of the distal femoral neck on the right. There is opaque cementinvolving the right acetabulum. Underlying bone detail is obscured. There are extensive callus formation involving the pubic bonesbilaterally. Soft tissue calcifications and probable swelling in the soft tissuesadjacent to the right proximal femur laterally. Since the previous study the upper aspect of a plate and screws appliedalong the lateral aspect of the mid shaft of the right femur appearsnew. IMPRESSION: Extensive postsurgical changes involving the right femur and hip. Numerousold fractures. -------- FINAL REPORT -------- Dictated By: Ajit Pugh Dictated Date: 05/19/2025 07:14 ET Assigned Physician: Ajit Pugh Reviewed and Electronically Signed By: Ajit Pugh Signed Date: 05/19/2025 07:19 ET Workstation ID: [id number] Transcribed By: Self Edit Transcribed Date: 05/19/2025 07:14 ET Honorio SUMNER IMG XR PROCEDURES Final Res ult * (ABNORMAL) Magnesium (05/18/2025 6:21 AM EST) Pathologist [facility] Magnesium 1.8(L) 1.9 - 2.6 mg/dL 05/18/2025 8:[address] [facility] Blood Venous blood specimen / Unknown Venipuncture / Unknown 05/18/2025 6:21 AM EST 05/18/2025 6:34 AM EST Kobi Franklin MD LAB BLOOD ORDERABLE S Final Result [facility] [address] [place] [address], * (ABNORMAL) Basic metabolic panel (05/18/2025 6:21 AM EST) Pathologist [facility] Sodium 142 133 - 145 mmol/L 05/18/2025 8:[address] [facility] Potassium 4.5 3.5 - 5.5 mmol/L 05/18/2025 8:[address] [facility] Chloride 103 96 - 110 mmol/L 05/18/2025 8:[address] [facility] CO2 33(H) 21 - 32 mmol/L 05/18/2025 8:[address] [facility] Anion Gap 6 3 - 11 05/18/2025 8:[address] [facility] Glucose 82 70 - 100 mg/dL 05/18/2025 8:[address] [facility] BUN 34(H) 5 - 25 mg/dL 05/18/2025 8:[address] [facility] Creatinine 0.78 0.50 - 1.10 mg/dL 05/18/2025 8:[address] [facility] eGFR 76 >=60 mL/min/1. 73m2 05/18/2025 8:[address] [facility] Comment:Calculation based on the Chronic Kidney Disease Epidemiology Collaboration (CKD-EPI) equation refit without adjustment for race. BUN/Creatinine Ratio 43.6 05/18/2025 8:[address] [facility] Calcium 8.1(L) 8.5 - 10.5 mg/dL 05/18/2025 8:[address] [facility] Blood Venous blood specimen / Unknown Venipuncture / Unknown 05/18/2025 6:21 AM EST 05/18/2025 6:34 AM EST Kobi Franklin MD LAB BLOOD ORDERABLE S Final Result [facility] [address] [place] [address], * (ABNORMAL) Complete blood count (05/18/2025 6:21 AM EST) [facility] WBC 8.3 4.8 - 10.8 K/mcL LAB HEMETOLOGY METHOD 05/18/2025 6:[address] [facility] RBC 3.20(L) 3.80 - 4.80 M/mcL LAB HEMETOLOGY METHOD 05/18/2025 6:[address] [facility] Hemoglobin 9.3(L) 11.5 - 16.0 g/dL LAB HEMETOLOGY METHOD 05/18/2025 6:[address] [facility] Hematocrit 30.0(L) 35.0 - 47.0 % LAB HEMETOLOGY METHOD 05/18/2025 6:[address] [facility] MCV 94.6 79.0 - 98.0 FL LAB HEMETOLOGY METHOD 05/18/2025 6:[address] [facility] MCH 29.3 27.0 - 32.0 pcg LAB HEMETOLOGY METHOD 05/18/2025 6:[address] [facility] MCHC 31.0(L) 32.0 - 37.0 g/dL LAB HEMETOLOGY METHOD 05/18/2025 6:[address] [facility] RDW 16.9(H) 11.0 - 15.0 % LAB HEMETOLOGY METHOD 05/18/2025 6:[address] [facility] Platelets 441(H) 130 - 400 K/mcL LAB HEMETOLOGY METHOD 05/18/2025 6:[address] [facility] MPV 8.8 7.0 - 11.0 FL LAB HEMETOLOGY METHOD 05/18/2025 6:[address] [facility] NRBC 0.0 <1.0 % LAB HEMETOLOGY METHOD 05/18/2025 6:[address] [facility] NRBC Absolute 0.00 <0.10 K/mcL LAB HEMETOLOGY METHOD 05/18/2025 6:[address] [facility] Blood Venous blood specimen / Unknown Venipuncture / Unknown 05/18/2025 6:21 AM EST 05/18/2025 6:34 AM EST us Kobi Franklin MD LAB BLOOD ORDERABLE S Final Result Performing Organization Address City/[facility]/ZIP Co de Phone Number [facility] [address] [place] [address], [place] [phone] * SST tube (05/17/2025 8:56 AM EST) [facility] Extra Tube Hold for add-ons. 05/17/2025 11:[address] [facility] Comment:Auto resulted. Blood Venous blood specimen / Unknown Venipuncture / Unknown 05/17/2025 8:56 AM EST 05/17/2025 9:01 AM EST us Kobi Franklin MD LAB BLOOD ORDERABLE S Final Result Performing Organization Address [facility]/ZIP Co de Phone Number [facility] [address] [place] [address], [place] [phone] * (ABNORMAL) CBC auto differential (05/17/2025 8:56 AM EST) [facility] WBC 9.5 4.8 - 10.8 K/mcL LAB HEMETOLOGY METHOD 05/17/2025 9:[address] [facility] RBC 3.40(L) 3.80 - 4.80 M/[facility] LAB HEMETOLOGY METHOD 05/17/2025 9:[address] [facility] Hemoglobin 9.7(L) 11.5 - 16.0 g/dL LAB HEMETOLOGY METHOD 05/17/2025 9:[address] [facility] Hematocrit 32.2(L) 35.0 - 47.0 % LAB HEMETOLOGY METHOD 05/17/2025 9:[address] [facility] MCV 95.8 79.0 - 98.0 FL LAB HEMETOLOGY METHOD 05/17/2025 9:[address] [facility] MCH 28.9 27.0 - 32.0 pcg LAB HEMETOLOGY METHOD 05/17/2025 9:[address] [facility] MCHC 30.1(L) 32.0 - 37.0 g/dL LAB HEMETOLOGY METHOD 05/17/2025 9:[address] [facility] RDW 17.2(H) 11.0 - 15.0 % LAB HEMETOLOGY METHOD 05/17/2025 9:[address] [facility] Platelets 469(H) 130 - 400 K/mcL LAB HEMETOLOGY METHOD 05/17/2025 9:[address] [facility] MPV 8.4 7.0 - 11.0 FL LAB HEMETOLOGY METHOD 05/17/2025 9:[address] [facility] NRBC 0.0 <1.0 % LAB HEMETOLOGY METHOD 05/17/2025 9:[address] [facility] NRBC Absolute 0.00 <0.10 K/mcL LAB HEMETOLOGY METHOD 05/17/2025 9:[address] [facility] Neutrophils Relative 74.7 % LAB HEMETOLOGY METHOD 05/17/2025 9:[address] [facility] Lymphocytes Relative 13.1 % LAB HEMETOLOGY METHOD 05/17/2025 9:[address] [facility] Monocytes Relative 8.6 % LAB HEMETOLOGY METHOD 05/17/2025 9:[address] [facility] Eosinophils Relative 2.2 % LAB HEMETOLOGY METHOD 05/17/2025 9:[address] [facility] Basophils Relative 0.7 % LAB HEMETOLOGY METHOD 05/17/2025 9:[address] [facility] Immature Granulocytes Relative 0.7 % LAB HEMETOLOGY METHOD 05/17/2025 9:[address] [facility] Neutrophils Absolute 7.08(H) 1.50 - 7.00 K/[facility] LAB HEMETOLOGY METHOD 05/17/2025 9:15 AM EST [facility] Lymphocytes Absolute 1.24 1.00 - 5.00 K/[facility] LAB HEMETOLOGY METHOD 05/17/2025 9:15 AM EST [facility] Monocytes Absolute 0.82 0.20 - 1.00 K/[facility] LAB HEMETOLOGY METHOD 05/17/2025 9:15 AM EST [facility] Eosinophils Absolute 0.21 0.00 - 0.50 K/[facility] LAB HEMETOLOGY METHOD 05/17/2025 9:15 AM EST [facility] Basophils Absolute 0.07 0.00 - 0.20 K/[facility] LAB HEMETOLOGY METHOD 05/17/2025 9:15 AM EST [facility] Immature Granulocytes Absolute 0.07(H) 0.00 - 0.03 K/[facility] LAB HEMETOLOGY METHOD 05/17/2025 9:15 AM EST [facility] Blood Venous blood specimen / Unknown Venipuncture / Unknown 05/17/2025 8:56 AM EST 05/17/2025 9:00 AM EST us Gris Mojica MD LAB BLOOD ORDERABLES Final Resul t [facility] [address] [place] [address], * (ABNORMAL) Magnesium (05/16/2025 6:31 AM EST) Magnesium 1.7(L) 1.9 - 2.6 mg/dL 05/16/2025 7:16 AM EST [facility] Blood Venous blood specimen / Unknown Venipuncture / Unknown 05/16/2025 6:31 AM EST 05/16/2025 6:39 AM EST Kobi Franklin MD LAB BLOOD ORDERABLE S Final Result [facility] [address] [place] [address], * (ABNORMAL) Basic metabolic panel (05/16/2025 6:31 AM EST) Sodium 143 133 - 145 mmol/L 05/16/2025 7:[address] [facility] Potassium 4.5 3.5 - 5.5 mmol/L 05/16/2025 7:[address] [facility] Chloride 104 96 - 110 mmol/L 05/16/2025 7:[address] [facility] CO2 31 21 - 32 mmol/L 05/16/2025 7:[address] [facility] Anion Gap 8 3 - 11 05/16/2025 7:[address] [facility] Glucose 97 70 - 100 mg/dL 05/16/2025 7:[address] [facility] BUN 47(H) 5 - 25 mg/dL 05/16/2025 7:[address] [facility] Creatinine 0.69 0.50 - 1.10 mg/dL 05/16/2025 7:[address] [facility] eGFR 87 >=60 mL/min/1. 73m2 05/16/2025 7:[address] [facility] Comment:Calculation based on the Chronic Kidney Disease Epidemiology Collaboration (CKD-EPI) equation refit without adjustment for race. BUN/Creatinine Ratio 68.1 05/16/2025 7:[address] [facility] Calcium 8.0(L) 8.5 - 10.5 mg/dL 05/16/2025 7:[address] [facility] Blood Venous blood specimen / Unknown Venipuncture / Unknown 05/16/2025 6:31 AM EST 05/16/2025 6:39 AM EST Kobi Franklin MD LAB BLOOD ORDERABLE S Final Result [facility] [address] [place] [address], [place] [phone] * (ABNORMAL) Complete blood count (05/16/2025 6:31 AM EST) [facility] WBC 12.1(H) 4.8 - 10.8 K/mcL LAB HEMETOLOGY METHOD 05/16/2025 6:56 AM EST [facility] RBC 3.10(L) 3.80 - 4.80 M/mcL LAB HEMETOLOGY METHOD 05/16/2025 6:[address] [facility] Hemoglobin 9.0(L) 11.5 - 16.0 g/dL LAB HEMETOLOGY METHOD 05/16/2025 6:[address] [facility] Hematocrit 29.4(L) 35.0 - 47.0 % LAB HEMETOLOGY METHOD 05/16/2025 6:[address] [facility] MCV 94.8 79.0 - 98.0 FL LAB HEMETOLOGY METHOD 05/16/2025 6:[address] [facility] MCH 29.0 27.0 - 32.0 pcg LAB HEMETOLOGY METHOD 05/16/2025 6:[address] [facility] MCHC 30.6(L) 32.0 - 37.0 g/dL LAB HEMETOLOGY METHOD 05/16/2025 6:[address] [facility] RDW 17.0(H) 11.0 - 15.0 % LAB HEMETOLOGY METHOD 05/16/2025 6:[address] [facility] Platelets 461(H) 130 - 400 K/mcL LAB HEMETOLOGY METHOD 05/16/2025 6:56 AM EST [facility] MPV 8.9 7.0 - 11.0 FL LAB HEMETOLOGY METHOD 05/16/2025 6:56 AM EST [facility] NRBC 0.0 <1.0 % LAB HEMETOLOGY METHOD 05/16/2025 6:[address] [facility] NRBC Absolute 0.00 <0.10 K/mcL LAB HEMETOLOGY METHOD 05/16/2025 6:56 AM EST [facility] Blood Venous blood specimen / Unknown Venipuncture / Unknown 05/16/2025 6:31 AM EST 05/16/2025 6:39 AM EST us Kobi Franklin MD LAB BLOOD ORDERABLE S Final Result Performing Organization Address City/[facility]/ZIP Co de Phone Number [facility] [address] [place] [address], [place] [phone] * Phosphorus (05/16/2025 6:31 AM EST) Phosphorus 3.3 2.5 - 4.5 mg/dL 05/16/2025 7:[address] [facility] Blood Venous blood specimen / Unknown Venipuncture / Unknown 05/16/2025 6:31 AM EST 05/16/2025 6:39 AM EST us Kobi Franklin MD LAB BLOOD ORDERABLE S Final Result [facility] [address] [place] [address], [place] [phone] * Culture urine (05/15/2025 4:37 PM EST) Culture, Urine <10,000 cfu/ml, insignificant count, no further workup. 05/16/2025 2:[address] [facility] Urine Urine specimen obtained by clean catch procedure / Unknown Non-blood Collection / Unknown 05/15/2025 4:37 PM EST 05/15/2025 6:16 PM EST Kamilla [facility] MICROBIOLOGY - GENERAL ORDER NISH Final Result [facility] [address] [place] [address], [place] [phone] * Solorzano urine culture tube (05/15/2025 4:37 PM EST) Pathologist [facility] Extra Tube Hold for add-ons. 05/15/2025 7:[address] [facility] Comment:Auto resulted. Urine Urine specimen obtained by clean catch procedure / Unknown Non-blood Collection / Unknown 05/15/2025 4:37 PM EST 05/15/2025 5:26 PM EST [facility] URINE ORDERABLES Final Resul t Performing Organization Address City/[facility]/ZIP Co de Phone Number [facility] [address] [place] [address], [place] [phone] * (ABNORMAL) Urinalysis with reflex microscopic and culture (05/15/2025 4:37 PM EST) Pathologist [facility] Specific [place] Urine 1.017 1.003 - 1.030 LAB URINALYSIS - AUTOMATED METHOD 05/15/2025 6:[address] [facility] pH, Urine 7.0 5.0 - 8.0 pH LAB URINALYSIS - AUTOMATED METHOD 05/15/2025 6:[address] [facility] Leukocytes, Urine Trace(A) Negative LAB URINALYSIS - AUTOMATED METHOD 05/15/2025 6:[address] [facility] Nitrite, Urine Negative Negative LAB URINALYSIS - AUTOMATED METHOD 05/15/2025 6:[address] [facility] Protein, Urine Negative <=Trace mg/dL LAB URINALYSIS - AUTOMATED METHOD 05/15/2025 6:[address] [facility] Glucose, Urine Negative Negative mg/dL LAB URINALYSIS - AUTOMATED METHOD 05/15/2025 6:[address] [facility] Ketones, Urine Negative Negative mg/dL LAB URINALYSIS - AUTOMATED METHOD 05/15/2025 6:[address] [facility] Urobilinogen, Urine 0.2 0.2 - 1.0 mg/dL LAB URINALYSIS - AUTOMATED METHOD 05/15/2025 6:[address] [facility] Bilirubin, Urine Negative Negative LAB URINALYSIS - AUTOMATED METHOD 05/15/2025 6:[address] [facility] Blood, Urine Negative Negative LAB URINALYSIS - AUTOMATED METHOD 05/15/2025 6:[address] [facility] RBC, Urine 0 0 - 4 /HPF LAB URINALYSIS - AUTOMATED METHOD 05/15/2025 6:[address] [facility] WBC, Urine 5(H) 0 - 4 /HPF LAB URINALYSIS - AUTOMATED METHOD 05/15/2025 6:[address] [facility] Squamous Epithelial, Urine 20 0 - 60 /LPF LAB URINALYSIS - AUTOMATED METHOD 05/15/2025 6:[address] [facility] Bacteria, Urine Negative Negative /HPF LAB URINALYSIS - AUTOMATED METHOD 05/15/2025 6:[address] [facility] Hyaline Casts, Urine 0 0 - 3 /LPF LAB URINALYSIS - AUTOMATED METHOD 05/15/2025 6:[address] [facility] Urine Urine specimen obtained by clean catch procedure / Unknown Non-blood Collection / Unknown 05/15/2025 4:37 PM EST 05/15/2025 5:26 PM EST us Kamilla SUMNER LAB URINE ORDERABLES Final Resul t [facility] [address] [place] [address], * (ABNORMAL) CBC auto differential (05/15/2025 5:51 AM EST) WBC 8.8 4.8 - 10.8 K/mcL LAB HEMETOLOGY METHOD 05/15/2025 6:44 AM EST [facility] RBC 3.10(L) 3.80 - 4.80 M/mcL LAB HEMETOLOGY METHOD 05/15/2025 6:[address] [facility] Hemoglobin 9.1(L) 11.5 - 16.0 g/dL LAB HEMETOLOGY METHOD 05/15/2025 6:[address] [facility] Hematocrit 29.4(L) 35.0 - 47.0 % LAB HEMETOLOGY METHOD 05/15/2025 6:44 AM EST [facility] MCV 94.5 79.0 - 98.0 FL LAB HEMETOLOGY METHOD 05/15/2025 6:[address] [facility] MCH 29.3 27.0 - 32.0 pcg LAB HEMETOLOGY METHOD 05/15/2025 6:[address] [facility] MCHC 31.0(L) 32.0 - 37.0 g/dL LAB HEMETOLOGY METHOD 05/15/2025 6:44 AM EST [facility] RDW 17.1(H) 11.0 - 15.0 % LAB HEMETOLOGY METHOD 05/15/2025 6:[address] [facility] Platelets 454(H) 130 - 400 K/mcL LAB HEMETOLOGY METHOD 05/15/2025 6:[address] [facility] MPV 9.0 7.0 - 11.0 FL LAB HEMETOLOGY METHOD 05/15/2025 6:[address] [facility] NRBC 0.0 <1.0 % LAB HEMETOLOGY METHOD 05/15/2025 6:[address] [facility] NRBC Absolute 0.00 <0.10 K/mcL LAB HEMETOLOGY METHOD 05/15/2025 6:[address] [facility] Neutrophils Relative 64.6 % LAB HEMETOLOGY METHOD 05/15/2025 6:[address] [facility] Lymphocytes Relative 16.3 % LAB HEMETOLOGY METHOD 05/15/2025 6:[address] [facility] Monocytes Relative 13.6 % LAB HEMETOLOGY METHOD 05/15/2025 6:[address] [facility] Eosinophils Relative 3.3 % LAB HEMETOLOGY METHOD 05/15/2025 6:[address] [facility] Basophils Relative 0.8 % LAB HEMETOLOGY METHOD 05/15/2025 6:[address] [facility] Immature Granulocytes Relative 1.4 % LAB HEMETOLOGY METHOD 05/15/2025 6:[address] [facility] Neutrophils Absolute 5.69 1.50 - 7.00 K/mcL LAB HEMETOLOGY METHOD 05/15/2025 6:[address] [facility] Lymphocytes Absolute 1.43 1.00 - 5.00 K/mcL LAB HEMETOLOGY METHOD 05/15/2025 6:[address] [facility] Monocytes Absolute 1.20(H) 0.20 - 1.00 K/mcL LAB HEMETOLOGY METHOD 05/15/2025 6:[address] [facility] Eosinophils Absolute 0.29 0.00 - 0.50 K/mcL LAB HEMETOLOGY METHOD 05/15/2025 6:[address] [facility] Basophils Absolute 0.07 0.00 - 0.20 K/mcL LAB HEMETOLOGY METHOD 05/15/2025 6:[address] [facility] Immature Granulocytes Absolute 0.12(H) 0.00 - 0.03 K/mcL LAB HEMETOLOGY METHOD 05/15/2025 6:[address] [facility] Blood Venous blood specimen / Unknown Venipuncture / Unknown 05/15/2025 5:51 AM EST 05/15/2025 6:16 AM EST us Amanda Woods MD LAB BLOOD ORDERABLES Final Resul t [facility] [address] [place] [address], * (ABNORMAL) Basic metabolic panel (05/15/2025 5:51 AM EST) Sodium 143 133 - 145 mmol/L 05/15/2025 7:[address] [facility] Potassium 4.7 3.5 - 5.5 mmol/L 05/15/2025 7:[address] [facility] Chloride 104 96 - 110 mmol/L 05/15/2025 7:[address] [facility] CO2 33(H) 21 - 32 mmol/L 05/15/2025 7:[address] [facility] Anion Gap 6 3 - 11 05/15/2025 7:[address] [facility] Glucose 79 70 - 100 mg/dL 05/15/2025 7:[address] [facility] BUN 35(H) 5 - 25 mg/dL 05/15/2025 7:[address] [facility] Creatinine 0.87 0.50 - 1.10 mg/dL 05/15/2025 7:[address] [facility] eGFR 67 >=60 mL/min/1. 73m2 05/15/2025 7:[address] [facility] Comment:Calculation based on the Chronic Kidney Disease Epidemiology Collaboration (CKD-EPI) equation refit without adjustment for race. BUN/Creatinine Ratio 40.2 05/15/2025 7:[address] [facility] Calcium 7.9(L) 8.5 - 10.5 mg/dL 05/15/2025 7:[address] [facility] Blood Venous blood specimen / Unknown Venipuncture / Unknown 05/15/2025 5:51 AM EST 05/15/2025 6:16 AM EST us Amanda Woods MD LAB BLOOD ORDERABLES Final Resul t [facility] [address] [place] [address], * (ABNORMAL) Complete blood count (05/14/2025 7:07 AM EST) WBC 12.0(H) 4.8 - 10.8 K/mcL LAB HEMETOLOGY METHOD 05/14/2025 7:[address] [facility] RBC 3.40(L) 3.80 - 4.80 M/mcL LAB HEMETOLOGY METHOD 05/14/2025 7:[address] [facility] Hemoglobin 9.9(L) 11.5 - 16.0 g/dL LAB HEMETOLOGY METHOD 05/14/2025 7:[address] [facility] Hematocrit 31.9(L) 35.0 - 47.0 % LAB HEMETOLOGY METHOD 05/14/2025 7:[address] [facility] MCV 94.9 79.0 - 98.0 FL LAB HEMETOLOGY METHOD 05/14/2025 7:[address] [facility] MCH 29.5 27.0 - 32.0 pcg LAB HEMETOLOGY METHOD 05/14/2025 7:[address] [facility] MCHC 31.0(L) 32.0 - 37.0 g/dL LAB HEMETOLOGY METHOD 05/14/2025 7:59 AM EST [facility] RDW 17.2(H) 11.0 - 15.0 % LAB HEMETOLOGY METHOD 05/14/2025 7:[address] [facility] Platelets 470(H) 130 - 400 K/mcL LAB HEMETOLOGY METHOD 05/14/2025 7:59 AM EST [facility] MPV 9.0 7.0 - 11.0 FL LAB HEMETOLOGY METHOD 05/14/2025 7:59 AM EST [facility] NRBC 0.0 <1.0 % LAB HEMETOLOGY METHOD 05/14/2025 7:[address] [facility] NRBC Absolute 0.00 <0.10 K/mcL LAB HEMETOLOGY METHOD 05/14/2025 7:[address] [facility] Blood Venous blood specimen / Unknown Venipuncture / Unknown 05/14/2025 7:07 AM EST 05/14/2025 7:44 AM EST us Adelina SUMNER LAB BLOOD ORDERABLES Final R esult [facility] [address] [place] [address], * (ABNORMAL) Basic metabolic panel (05/14/2025 7:07 AM EST) Sodium 139 133 - 145 mmol/L 05/14/2025 8:[address] [facility] Potassium 4.2 3.5 - 5.5 mmol/L 05/14/2025 8:[address] [facility] Chloride 100 96 - 110 mmol/L 05/14/2025 8:[address] [facility] CO2 31 21 - 32 mmol/L 05/14/2025 8:[address] [facility] Anion Gap 8 3 - 11 05/14/2025 8:[address] [facility] Glucose 93 70 - 100 mg/dL 05/14/2025 8:[address] [facility] BUN 25 5 - 25 mg/dL 05/14/2025 8:[address] [facility] Creatinine 0.71 0.50 - 1.10 mg/dL 05/14/2025 8:[address] [facility] eGFR 85 >=60 mL/min/1. 73m2 05/14/2025 8:[address] [facility] Comment:Calculation based on the Chronic Kidney Disease Epidemiology Collaboration (CKD-EPI) equation refit without adjustment for race. BUN/Creatinine Ratio 35.2 05/14/2025 8:[address] [facility] Calcium 8.3(L) 8.5 - 10.5 mg/dL 05/14/2025 8:[address] [facility] Blood Venous blood specimen / Unknown Venipuncture / Unknown 05/14/2025 7:07 AM EST 05/14/2025 7:43 AM EST us Adelina SUMNER LAB BLOOD ORDERABLES Final R esult [facility] [address] [place] [address], * XR Femur 1 View Right (05/13/2025 11:58 AM EST) Anatomical Region Laterality Modality Lower Extremities, Femur Right Radiogr aphic Imaging 05/13/2025 4:08 PM EST Impressions 05/13/2025 4:13 PM EST Impression: New postop changes in the distal femur, with 2 additional sideplates placed, traversing the acute distal femoral diaphyseal fracture. Alignment of the major fracture fragments is anatomic. Romeo SUMNER ([id number]) -------- FINAL REPORT -------- Dictated By: Carmen Prado Dictated Date: 05/13/2025 16:08 ET Assigned Physician: Carmen Prado Reviewed and Electronically Signed By: Carmen Prado Signed Date: 05/13/2025 16:13 ET Workstation ID: [id number] Transcribed By: Self Edit Transcribed Date: 05/13/2025 16:08 ET Narrative 05/13/2025 4:13 PM EST History: Postop right femur fracture repair. Comparison: 05/01/25 (preop). Findings: Portable AP views of the right femur from 11:40 AM are submitted from the PACU. The patient has undergone interim open reduction and internal fixation of a distal femoral diaphyseal fracture which occurred just distal to the most inferior surgical screw of a pre-existing long metal sideplate. There are 2 new metal side plates along the distal femur now, one on the lateral side extending from the mid diaphysis to the distal metaphysis and a second, shorter plate extending from the distal diaphysis to the distal metaphysis, traversing the fracture. The major fracture fragments are in anatomic alignment. 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 Lateral skin carmel are noted. Procedure Note Carmen Prado MD - 05/13/2025 History: Postop right femur fracture repair. Comparison: 05/01/25 (preop). Findings: Portable AP views of the right femur from 11:40 AM are submitted from thePACU. The patient has undergone interim open reduction and internal fixation ofa distal femoral diaphyseal fracture which occurred just distal to themost inferior surgical screw of a pre-existing long metal sideplate. Thereare 2 new metal side plates along the distal femur now, one on the lateralside extending from the mid diaphysis to the distal metaphysis and asecond, shorter plate extending from the distal diaphysis to the distalmetaphysis, traversing the fracture. The major fracture fragments are inanatomic alignment. 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 Lateral skin carmel arenoted. IMPRESSION: Impression: New postop changes in the distal femur, with 2 additional sideplatesplaced, traversing the acute distal femoral diaphyseal fracture. Alignmentof the major fracture fragments is anatomic. Romeo SUMNER ([id number]) -------- FINAL REPORT -------- Dictated By: Carmen Prado Dictated Date: 05/13/2025 16:08 ET Assigned Physician: Carmen Prado Reviewed and Electronically Signed By: Carmen Prado Signed Date: 05/13/2025 16:13 ET Workstation ID: [id number] Transcribed By: Self Edit Transcribed Date: 05/13/2025 16:08 ET Adelina SUMNER IMG XR PROCEDURES Final Resu lt * XR Hip 1 View Right (05/13/2025 11:58 AM EST) Anatomical Region Laterality Modality Lower Extremities, Hip Right Radiograp hic Imaging 05/13/2025 1:18 PM EST Impressions 05/13/2025 1:19 PM EST FINDINGS/IMPRESSION: Immediate postoperative radiograph with expected recent postsurgical changes in the adjacent soft tissues. See operative report for further details. Right hip arthroplasty with plate and screw fixation of the proximal femur remote pubic rami fractures and significant degenerative changes of the lumbar spine. -------- FINAL REPORT -------- Dictated By: Henry Forrester Dictated Date: 05/13/2025 13:18 ET Assigned Physician: Henry Forrester Reviewed and Electronically Signed By: Herny Forrester Signed Date: 05/13/2025 13:19 ET Workstation ID: [id number] Transcribed By: Self Edit Transcribed Date: 05/13/2025 13:18 ET Narrative 05/13/2025 1:19 PM EST XR HIP 1 VIEW RIGHT INDICATION: Post-op evaluation following repair in pacu TECHNIQUE: XR HIP 1 VIEW RIGHT COMPARISON: None Procedure Note Henry Forrester MD - 05/13/2025 XR HIP 1 VIEW RIGHT INDICATION: Post-op evaluation following repair in pacu TECHNIQUE: XR HIP 1 VIEW RIGHT COMPARISON: None IMPRESSION: FINDINGS/IMPRESSION: Immediate postoperative radiograph with expectedrecent postsurgical changes in the adjacent soft tissues. See operativereport for further details. Right hip arthroplasty with plate and screwfixation of the proximal femur remote pubic rami fractures and significantdegenerative changes of the lumbar spine. -------- FINAL REPORT -------- Dictated By: Henry Forrester Dictated Date: 05/13/2025 13:18 ET Assigned Physician: Henry Forrester Reviewed and Electronically Signed By: Henry Forrester Signed Date: 05/13/2025 13:19 ET Workstation ID: [id number] Transcribed By: Self Edit Transcribed Date: 05/13/2025 13:18 ET us Adelina SUMNER IMG XR PROCEDURES Final Resu lt * (ABNORMAL) Culture wound deep (05/13/2025 10:25 AM EST) Culture, Wound Enterobacter cloacae complex(A) SAUL 05/16/2025 9:47 AM EST [facility] Comment: The organism value for this result has been updated. These results have been appended to the previously preliminary verified report. This is an edited result. Previous organism was Gram negative bacilli on 05/14/2025 at 1332 EST. Culture, Wound Citrobacter sedlakii(A) SAUL 05/16/2025 9:47 AM EST [facility] Comment: The organism value for this result has been updated. These results have been appended to the previously preliminary verified report. Gram Stain Result Few Polymorphonuclear leukocytes 05/16/2025 9:[address] [facility] Gram Stain Result No epithelial cells seen 05/16/2025 9:[address] [facility] Gram Stain Result No organisms seen 05/16/2025 9:[address] [facility] Swab Right hip region structure / Unknown 05/13/2025 10:25 AM EST 05/13/2025 11:00 AM EST Narrative Organism Antibiotic Method Susceptibility Enterobacter cloacae complex Amoxicillin/Clavulanate SAUL >=32 ug/ml: Resistant Enterobacter cloacae complex Cefoxitin SAUL >=64 ug/ml: Resistant Enterobacter cloacae complex Ceftazidime SAUL <=0.5 ug/ml: Susceptible Enterobacter cloacae complex Cefepime SAUL <=0.12 ug/ml: Susceptible Enterobacter cloacae complex Meropenem SAUL <=0.25 ug/ml: Susceptible Enterobacter cloacae complex Amikacin SAUL 2 ug/ml: Susceptible Enterobacter cloacae complex Gentamicin SAUL <=1 ug/ml: Susceptible Enterobacter cloacae complex Ciprofloxacin SAUL <=0.06 ug/ml: Susceptible Enterobacter cloacae complex Levofloxacin SAUL <=0.12 ug/ml: Susceptible Enterobacter cloacae complex Trimethoprim/Sulfamethoxaz ole SAUL <=20 ug/ml: Susceptible Citrobacter sedlakii Amoxicillin/Clavulanate SAUL 16 ug/ml: Resistant Citrobacter sedlakii Cefoxitin SAUL 8 ug/ml: Resistant Citrobacter sedlakii Ceftazidime SAUL <=0.5 ug/ml: Susceptible Citrobacter sedlakii Ceftriaxone SAUL <=0.25 ug/ml: Susceptible Citrobacter sedlakii Cefepime SAUL <=0.12 ug/ml: Susceptible Citrobacter sedlakii Meropenem SAUL <=0.25 ug/ml: Susceptible Citrobacter sedlakii Amikacin SAUL 2 ug/ml: Susceptible Citrobacter sedlakii Gentamicin SAUL <=1 ug/ml: Susceptible Citrobacter sedlakii Ciprofloxacin SAUL <=0.06 ug/ml: Susceptible Citrobacter sedlakii Levofloxacin SAUL <=0.12 ug/ml: Susceptible Citrobacter sedlakii Trimethoprim/Sulfam ethoxaz ole SAUL <=20 ug/ml: Susceptible us Gris Mojica MD LAB MICROBIOLOGY - GENERAL ORDER NISH Final Result [facility] [address] [place] [address], * (ABNORMAL) Culture wound deep (05/13/2025 10:24 AM EST) Culture, Wound Enterobacter cloacae complex(A) SAUL 05/16/2025 9:45 AM EST [facility] Comment: The organism value for this result has been updated. These results have been appended to the previously preliminary verified report. This is an edited result. Previous organism was Gram negative bacilli on 05/14/2025 at 1327 EST. Gram Stain Result Few Polymorphonuclear leukocytes 05/16/2025 9:45 AM EST [facility] Gram Stain Result No epithelial cells seen 05/16/2025 9:45 AM EST [facility] Gram Stain Result No organisms seen 05/16/2025 9:45 AM EST [facility] Swab Right hip region structure / Unknown 05/13/2025 10:24 AM EST 05/13/2025 11:00 AM EST Narrative Organism Antibiotic Method Susceptibility Enterobacter cloacae complex Amoxicillin/Clavulanate SAUL >=32 ug/ml: Resistant Enterobacter cloacae complex Cefoxitin SAUL >=64 ug/ml: Resistant Enterobacter cloacae complex Ceftazidime SAUL <=0.5 ug/ml: Susceptible Enterobacter cloacae complex Cefepime SAUL <=0.12 ug/ml: Susceptible Enterobacter cloacae complex Meropenem SAUL <=0.25 ug/ml: Susceptible Enterobacter cloacae complex Amikacin SAUL 2 ug/ml: Susceptible Enterobacter cloacae complex Gentamicin SAUL <=1 ug/ml: Susceptible Enterobacter cloacae complex Ciprofloxacin SAUL <=0.06 ug/ml: Susceptible Enterobacter cloacae complex Levofloxacin SAUL <=0.12 ug/ml: Susceptible Enterobacter cloacae complex Trimethoprim/Sulfamethoxaz ole SAUL <=20 ug/ml: Susceptible us Gris Mojica MD LAB MICROBIOLOGY - GENERAL ORDER NISH Final Result [facility] [address] [place] [address], * (ABNORMAL) Culture wound deep (05/13/2025 10:22 AM EST) Culture, Wound Enterobacter cloacae complex(A) SAUL 05/16/2025 9:57 AM EST [facility] Comment: The organism value for this result has been updated. These results have been appended to the previously preliminary verified report. This is an edited result. Previous organism was Gram negative bacilli on 05/14/2025 at 1337 EST. Culture, Wound Citrobacter sedlakii(A) SAUL 05/16/2025 9:57 AM EST [facility] Comment: The organism value for this result has been updated. These results have been appended to the previously preliminary verified report. Gram Stain Result Few Polymorphonuclear leukocytes 05/16/2025 9:[address] [facility] Gram Stain Result No epithelial cells seen 05/16/2025 9:[address] [facility] Gram Stain Result No organisms seen 05/16/2025 9:[address] [facility] Swab Structure of right thigh / Unknown 05/13/2025 10:22 AM EST 05/13/2025 11:00 AM EST Narrative Organism Antibiotic Method Susceptibility Enterobacter cloacae complex Amoxicillin/Clavulanate SAUL >=32 ug/ml: Resistant Enterobacter cloacae complex Cefoxitin SAUL >=64 ug/ml: Resistant Enterobacter cloacae complex Ceftazidime SAUL <=0.5 ug/ml: Susceptible Enterobacter cloacae complex Cefepime SAUL <=0.12 ug/ml: Susceptible Enterobacter cloacae complex Meropenem SAUL <=0.25 ug/ml: Susceptible Enterobacter cloacae complex Amikacin SAUL 4 ug/ml: Susceptible Enterobacter cloacae complex Gentamicin SAUL <=1 ug/ml: Susceptible Enterobacter cloacae complex Ciprofloxacin SAUL <=0.06 ug/ml: Susceptible Enterobacter cloacae complex Levofloxacin SAUL <=0.12 ug/ml: Susceptible Enterobacter cloacae complex Trimethoprim/Sulfamethoxaz ole SAUL <=20 ug/ml: Susceptible Citrobacter sedlakii Amoxicillin/Clavulanate SAUL 16 ug/ml: Resistant Citrobacter sedlakii Cefoxitin SAUL 8 ug/ml: Resistant Citrobacter sedlakii Ceftazidime SAUL <=0.5 ug/ml: Susceptible Citrobacter sedlakii Ceftriaxone SAUL <=0.25 ug/ml: Susceptible Citrobacter sedlakii Cefepime SAUL <=0.12 ug/ml: Susceptible Citrobacter sedlakii Meropenem SAUL <=0.25 ug/ml: Susceptible Citrobacter sedlakii Amikacin SAUL 2 ug/ml: Susceptible Citrobacter sedlakii Gentamicin SAUL <=1 ug/ml: Susceptible Citrobacter sedlakii Ciprofloxacin SAUL <=0.06 ug/ml: Susceptible Citrobacter sedlakii Levofloxacin SAUL <=0.12 ug/ml: Susceptible Citrobacter sedlakii Trimethoprim/Sulfam ethoxaz ole SAUL <=20 ug/ml: Susceptible Gris Mojica MD LAB MICROBIOLOGY - GENERAL ORDER NISH Final Result [facility] [address] [place] [address], * (ABNORMAL) CBC auto differential (05/13/2025 6:01 AM EST) [facility] WBC 9.8 4.8 - 10.8 K/mcL LAB HEMETOLOGY METHOD 05/13/2025 6:[address] [facility] RBC 3.50(L) 3.80 - 4.80 M/mcL LAB HEMETOLOGY METHOD 05/13/2025 6:[address] [facility] Hemoglobin 10.2(L) 11.5 - 16.0 g/dL LAB HEMETOLOGY METHOD 05/13/2025 6:[address] [facility] Hematocrit 32.9(L) 35.0 - 47.0 % LAB HEMETOLOGY METHOD 05/13/2025 6:[address] [facility] MCV 94.3 79.0 - 98.0 FL LAB HEMETOLOGY METHOD 05/13/2025 6:[address] [facility] MCH 29.2 27.0 - 32.0 pcg LAB HEMETOLOGY METHOD 05/13/2025 6:[address] [facility] MCHC 31.0(L) 32.0 - 37.0 g/dL LAB HEMETOLOGY METHOD 05/13/2025 6:[address] [facility] RDW 17.2(H) 11.0 - 15.0 % LAB HEMETOLOGY METHOD 05/13/2025 6:[address] [facility] Platelets 463(H) 130 - 400 K/mcL LAB HEMETOLOGY METHOD 05/13/2025 6:[address] [facility] MPV 9.3 7.0 - 11.0 FL LAB HEMETOLOGY METHOD 05/13/2025 6:[address] [facility] NRBC 0.0 <1.0 % LAB HEMETOLOGY METHOD 05/13/2025 6:[address] [facility] NRBC Absolute 0.00 <0.10 K/mcL LAB HEMETOLOGY METHOD 05/13/2025 6:[address] [facility] Neutrophils Relative 65.3 % LAB HEMETOLOGY METHOD 05/13/2025 6:[address] [facility] Lymphocytes Relative 16.2 % LAB HEMETOLOGY METHOD 05/13/2025 6:[address] [facility] Monocytes Relative 12.7 % LAB HEMETOLOGY METHOD 05/13/2025 6:[address] [facility] Eosinophils Relative 3.8 % LAB HEMETOLOGY METHOD 05/13/2025 6:[address] [facility] Basophils Relative 0.9 % LAB HEMETOLOGY METHOD 05/13/2025 6:[address] [facility] Immature Granulocytes Relative 1.1 % LAB HEMETOLOGY METHOD 05/13/2025 6:[address] [facility] Neutrophils Absolute 6.43 1.50 - 7.00 K/mcL LAB HEMETOLOGY METHOD 05/13/2025 6:[address] [facility] Lymphocytes Absolute 1.59 1.00 - 5.00 K/mcL LAB HEMETOLOGY METHOD 05/13/2025 6:[address] [facility] Monocytes Absolute 1.25(H) 0.20 - 1.00 K/mcL LAB HEMETOLOGY METHOD 05/13/2025 6:[address] [facility] Eosinophils Absolute 0.37 0.00 - 0.50 K/[facility] LAB HEMETOLOGY METHOD 05/13/2025 6:44 AM EST [facility] Basophils Absolute 0.09 0.00 - 0.20 K/[facility] LAB HEMETOLOGY METHOD 05/13/2025 6:44 AM EST [facility] Immature Granulocytes Absolute 0.11(H) 0.00 - 0.03 K/[facility] LAB HEMETOLOGY METHOD 05/13/2025 6:44 AM EST [facility] Blood Venous blood specimen / Unknown Venipuncture / Unknown 05/13/2025 6:01 AM EST 05/13/2025 6:18 AM EST us Amanda Woods MD LAB BLOOD ORDERABLES Final Resul t [facility] [address] [place] [address], * (ABNORMAL) Basic metabolic panel (05/13/2025 6:01 AM EST) Sodium 143 133 - 145 mmol/L 05/13/2025 7:[address] [facility] Potassium 4.6 3.5 - 5.5 mmol/L 05/13/2025 7:[address] [facility] Chloride 102 96 - 110 mmol/L 05/13/2025 7:[address] [facility] CO2 32 21 - 32 mmol/L 05/13/2025 7:[address] [facility] Anion Gap 9 3 - 11 05/13/2025 7:[address] [facility] Glucose 84 70 - 100 mg/dL 05/13/2025 7:[address] [facility] BUN 27(H) 5 - 25 mg/dL 05/13/2025 7:[address] [facility] Creatinine 0.74 0.50 - 1.10 mg/dL 05/13/2025 7:30 AM EST [facility] eGFR 81 >=60 mL/min/1. 73m2 05/13/2025 7:[address] [facility] Comment:Calculation based on the Chronic Kidney Disease Epidemiology Collaboration (CKD-EPI) equation refit without adjustment for race. BUN/Creatinine Ratio 36.5 05/13/2025 7:[address] [facility] Calcium 8.4(L) 8.5 - 10.5 mg/dL 05/13/2025 7:[address] [facility] Blood Venous blood specimen / Unknown Venipuncture / Unknown 05/13/2025 6:01 AM EST 05/13/2025 6:17 AM EST us Amanda Woods MD LAB BLOOD ORDERABLES Final Resul t [facility] [address] [place] [address], * (ABNORMAL) CBC auto differential (05/12/2025 5:45 AM EST) WBC 8.1 4.8 - 10.8 K/mcL LAB HEMETOLOGY METHOD 05/12/2025 6:[address] [facility] RBC 3.40(L) 3.80 - 4.80 M/mcL LAB HEMETOLOGY METHOD 05/12/2025 6:[address] [facility] Hemoglobin 9.9(L) 11.5 - 16.0 g/dL LAB HEMETOLOGY METHOD 05/12/2025 6:[address] [facility] Hematocrit 31.4(L) 35.0 - 47.0 % LAB HEMETOLOGY METHOD 05/12/2025 6:[address] [facility] MCV 93.5 79.0 - 98.0 FL LAB HEMETOLOGY METHOD 05/12/2025 6:[address] [facility] MCH 29.5 27.0 - 32.0 pcg LAB HEMETOLOGY METHOD 05/12/2025 6:[address] [facility] MCHC 31.5(L) 32.0 - 37.0 g/dL LAB HEMETOLOGY METHOD 05/12/2025 6:[address] [facility] RDW 17.6(H) 11.0 - 15.0 % LAB HEMETOLOGY METHOD 05/12/2025 6:[address] [facility] Platelets 407(H) 130 - 400 K/mcL LAB HEMETOLOGY METHOD 05/12/2025 6:[address] [facility] MPV 9.4 7.0 - 11.0 FL LAB HEMETOLOGY METHOD 05/12/2025 6:[address] [facility] NRBC 0.0 <1.0 % LAB HEMETOLOGY METHOD 05/12/2025 6:[address] [facility] NRBC Absolute 0.00 <0.10 K/mcL LAB HEMETOLOGY METHOD 05/12/2025 6:[address] [facility] Neutrophils Relative 66.4 % LAB HEMETOLOGY METHOD 05/12/2025 6:[address] [facility] Lymphocytes Relative 14.2 % LAB HEMETOLOGY METHOD 05/12/2025 6:[address] [facility] Monocytes Relative 13.5 % LAB HEMETOLOGY METHOD 05/12/2025 6:[address] [facility] Eosinophils Relative 4.1 % LAB HEMETOLOGY METHOD 05/12/2025 6:[address] [facility] Basophils Relative 0.6 % LAB HEMETOLOGY METHOD 05/12/2025 6:[address] [facility] Immature Granulocytes Relative 1.2 % LAB HEMETOLOGY METHOD 05/12/2025 6:[address] [facility] Neutrophils Absolute 5.34 1.50 - 7.00 K/mcL LAB HEMETOLOGY METHOD 05/12/2025 6:52 AM EST [facility] Lymphocytes Absolute 1.14 1.00 - 5.00 K/mcL LAB HEMETOLOGY METHOD 05/12/2025 6:52 AM EST [facility] Monocytes Absolute 1.09(H) 0.20 - 1.00 K/mcL LAB HEMETOLOGY METHOD 05/12/2025 6:52 AM EST [facility] Eosinophils Absolute 0.33 0.00 - 0.50 K/mcL LAB HEMETOLOGY METHOD 05/12/2025 6:52 AM EST [facility] Basophils Absolute 0.05 0.00 - 0.20 K/mcL LAB HEMETOLOGY METHOD 05/12/2025 6:[address] [facility] Immature Granulocytes Absolute 0.10(H) 0.00 - 0.03 K/mcL LAB HEMETOLOGY METHOD 05/12/2025 6:[address] [facility] Blood Venous blood specimen / Unknown Venipuncture / Unknown 05/12/2025 5:45 AM EST 05/12/2025 6:28 AM EST us Amanda Woods MD LAB BLOOD ORDERABLES Final Resul t [facility] [address] [place] [address], * (ABNORMAL) Basic metabolic panel (05/12/2025 5:45 AM EST) Sodium 142 133 - 145 mmol/L LAB CHEMISTRY METHOD 05/12/2025 7:[address] [facility] Potassium 4.5 3.5 - 5.5 mmol/L LAB CHEMISTRY METHOD 05/12/2025 7:[address] [facility] Chloride 103 96 - 110 mmol/L LAB CHEMISTRY METHOD 05/12/2025 7:[address] [facility] CO2 33(H) 21 - 32 mmol/L LAB CHEMISTRY METHOD 05/12/2025 7:[address] [facility] Anion Gap 6 3 - 11 LAB CHEMISTRY METHOD 05/12/2025 7:[address] [facility] Glucose 88 70 - 100 mg/dL LAB CHEMISTRY METHOD 05/12/2025 7:[address] [facility] BUN 24 5 - 25 mg/dL LAB CHEMISTRY METHOD 05/12/2025 7:[address] [facility] Creatinine 0.62 0.50 - 1.10 mg/dL LAB CHEMISTRY METHOD 05/12/2025 7:[address] [facility] eGFR 89 >=60 mL/min/1. 73m2 LAB CHEMISTRY METHOD 05/12/2025 7:[address] [facility] Comment:Calculation based on the Chronic Kidney Disease Epidemiology Collaboration (CKD-EPI) equation refit without adjustment for race. BUN/Creatinine Ratio 38.7 LAB CHEMISTRY METHOD 05/12/2025 7:[address] [facility] Calcium 8.8 8.5 - 10.5 mg/dL LAB CHEMISTRY METHOD 05/12/2025 7:[address] [facility] Blood Venous blood specimen / Unknown Venipuncture / Unknown 05/12/2025 5:45 AM EST 05/12/2025 6:29 AM EST us Amanda Woods MD LAB BLOOD ORDERABLES Final Resul t [facility] [address] [place] [address], * (ABNORMAL) CBC auto differential (05/11/2025 6:16 AM EST) WBC 7.8 4.8 - 10.8 K/mcL LAB HEMETOLOGY METHOD 05/11/2025 7:[address] [facility] RBC 3.30(L) 3.80 - 4.80 M/mcL LAB HEMETOLOGY METHOD 05/11/2025 7:[address] [facility] Hemoglobin 9.7(L) 11.5 - 16.0 g/dL LAB HEMETOLOGY METHOD 05/11/2025 7:[address] [facility] Hematocrit 30.6(L) 35.0 - 47.0 % LAB HEMETOLOGY METHOD 05/11/2025 7:[address] [facility] MCV 93.0 79.0 - 98.0 FL LAB HEMETOLOGY METHOD 05/11/2025 7:[address] [facility] MCH 29.5 27.0 - 32.0 pcg LAB HEMETOLOGY METHOD 05/11/2025 7:[address] [facility] MCHC 31.7(L) 32.0 - 37.0 g/dL LAB HEMETOLOGY METHOD 05/11/2025 7:[address] [facility] RDW 18.1(H) 11.0 - 15.0 % LAB HEMETOLOGY METHOD 05/11/2025 7:[address] [facility] Platelets 366 130 - 400 K/mcL LAB HEMETOLOGY METHOD 05/11/2025 7:[address] [facility] MPV 9.5 7.0 - 11.0 FL LAB HEMETOLOGY METHOD 05/11/2025 7:[address] [facility] NRBC 0.0 <1.0 % LAB HEMETOLOGY METHOD 05/11/2025 7:[address] [facility] NRBC Absolute 0.00 <0.10 K/mcL LAB HEMETOLOGY METHOD 05/11/2025 7:[address] [facility] Neutrophils Relative 65.0 % LAB HEMETOLOGY METHOD 05/11/2025 7:[address] [facility] Lymphocytes Relative 14.1 % LAB HEMETOLOGY METHOD 05/11/2025 7:[address] [facility] Monocytes Relative 15.5 % LAB HEMETOLOGY METHOD 05/11/2025 7:[address] [facility] Eosinophils Relative 3.8 % LAB HEMETOLOGY METHOD 05/11/2025 7:[address] [facility] Basophils Relative 0.6 % LAB HEMETOLOGY METHOD 05/11/2025 7:[address] [facility] Immature Granulocytes Relative 1.0 % LAB HEMETOLOGY METHOD 05/11/2025 7:[address] [facility] Neutrophils Absolute 5.07 1.50 - 7.00 K/mcL LAB HEMETOLOGY METHOD 05/11/2025 7:[address] [facility] Lymphocytes Absolute 1.10 1.00 - 5.00 K/mcL LAB HEMETOLOGY METHOD 05/11/2025 7:[address] [facility] Monocytes Absolute 1.21(H) 0.20 - 1.00 K/mcL LAB HEMETOLOGY METHOD 05/11/2025 7:[address] [facility] Eosinophils Absolute 0.30 0.00 - 0.50 K/mcL LAB HEMETOLOGY METHOD 05/11/2025 7:[address] [facility] Basophils Absolute 0.05 0.00 - 0.20 K/mcL LAB HEMETOLOGY METHOD 05/11/2025 7:[address] [facility] Immature Granulocytes Absolute 0.08(H) 0.00 - 0.03 K/mcL LAB HEMETOLOGY METHOD 05/11/2025 7:[address] [facility] Blood Venous blood specimen / Unknown Venipuncture / Unknown 05/11/2025 6:16 AM EST 05/11/2025 7:26 AM EST us Adelina SUMNER LAB BLOOD ORDERABLES Final R esult Performing Organization Address City/[facility]/ZIP Co de Phone Number [facility] [address] [place] [address], [place] [phone] * SST tube (05/11/2025 6:14 AM EST) [facility] Extra Tube Hold for add-ons. 05/11/2025 9:01 AM EST [facility] Comment:Auto resulted. Blood Venous blood specimen / Unknown 05/11/2025 6:14 AM EST 05/11/2025 7:27 AM EST Amanda Woods MD LAB BLOOD ORDERABLES Final Resul t Performing Organization Address [facility]/ZIP Co de Phone Number [facility] [address] [place] [address], [place] [phone] * (ABNORMAL) CBC auto differential (05/10/2025 6:01 AM EST) [facility] WBC 8.3 4.8 - 10.8 K/mcL LAB HEMETOLOGY METHOD 05/10/2025 6:[address] [facility] RBC 3.20(L) 3.80 - 4.80 M/mcL LAB HEMETOLOGY METHOD 05/10/2025 6:[address] [facility] Hemoglobin 9.5(L) 11.5 - 16.0 g/dL LAB HEMETOLOGY METHOD 05/10/2025 6:[address] [facility] Hematocrit 29.3(L) 35.0 - 47.0 % LAB HEMETOLOGY METHOD 05/10/2025 6:[address] [facility] MCV 91.6 79.0 - 98.0 FL LAB HEMETOLOGY METHOD 05/10/2025 6:[address] [facility] MCH 29.7 27.0 - 32.0 pcg LAB HEMETOLOGY METHOD 05/10/2025 6:[address] [facility] MCHC 32.4 32.0 - 37.0 g/dL LAB HEMETOLOGY METHOD 05/10/2025 6:[address] [facility] RDW 19.1(H) 11.0 - 15.0 % LAB HEMETOLOGY METHOD 05/10/2025 6:[address] [facility] Platelets 327 130 - 400 K/mcL LAB HEMETOLOGY METHOD 05/10/2025 6:[address] [facility] MPV 9.0 7.0 - 11.0 FL LAB HEMETOLOGY METHOD 05/10/2025 6:[address] [facility] NRBC 0.0 <1.0 % LAB HEMETOLOGY METHOD 05/10/2025 6:[address] [facility] NRBC Absolute 0.00 <0.10 K/mcL LAB HEMETOLOGY METHOD 05/10/2025 6:[address] [facility] Neutrophils Relative 60.2 % LAB HEMETOLOGY METHOD 05/10/2025 6:[address] [facility] Lymphocytes Relative 16.1 % LAB HEMETOLOGY METHOD 05/10/2025 6:[address] [facility] Monocytes Relative 17.2 % LAB HEMETOLOGY METHOD 05/10/2025 6:[address] [facility] Eosinophils Relative 4.5 % LAB HEMETOLOGY METHOD 05/10/2025 6:[address] [facility] Basophils Relative 0.7 % LAB HEMETOLOGY METHOD 05/10/2025 6:[address] [facility] Immature Granulocytes Relative 1.3 % LAB HEMETOLOGY METHOD 05/10/2025 6:[address] [facility] Neutrophils Absolute 4.96 1.50 - 7.00 K/mcL LAB HEMETOLOGY METHOD 05/10/2025 6:43 AM EST [facility] Lymphocytes Absolute 1.33 1.00 - 5.00 K/mcL LAB HEMETOLOGY METHOD 05/10/2025 6:43 AM EST [facility] Monocytes Absolute 1.42(H) 0.20 - 1.00 K/mcL LAB HEMETOLOGY METHOD 05/10/2025 6:43 AM EST [facility] Eosinophils Absolute 0.37 0.00 - 0.50 K/mcL LAB HEMETOLOGY METHOD 05/10/2025 6:43 AM EST [facility] Basophils Absolute 0.06 0.00 - 0.20 K/mcL LAB HEMETOLOGY METHOD 05/10/2025 6:[address] [facility] Immature Granulocytes Absolute 0.11(H) 0.00 - 0.03 K/mcL LAB HEMETOLOGY METHOD 05/10/2025 6:[address] [facility] Blood Venous blood specimen / Unknown Venipuncture / Unknown 05/10/2025 6:01 AM EST 05/10/2025 6:22 AM EST us Adelina SUMNER LAB BLOOD ORDERABLES Final R esult [facility] [address] [place] [address], * (ABNORMAL) Basic metabolic panel (05/10/2025 6:01 AM EST) Sodium 140 133 - 145 mmol/L LAB CHEMISTRY METHOD 05/10/2025 7:12 AM EST [facility] Potassium 4.4 3.5 - 5.5 mmol/L LAB CHEMISTRY METHOD 05/10/2025 7:[address] [facility] Chloride 104 96 - 110 mmol/L LAB CHEMISTRY METHOD 05/10/2025 7:[address] [facility] CO2 34(H) 21 - 32 mmol/L LAB CHEMISTRY METHOD 05/10/2025 7:[address] [facility] Anion Gap 2(L) 3 - 11 LAB CHEMISTRY METHOD 05/10/2025 7:[address] [facility] Glucose 96 70 - 100 mg/dL LAB CHEMISTRY METHOD 05/10/2025 7:[address] [facility] BUN 27(H) 5 - 25 mg/dL LAB CHEMISTRY METHOD 05/10/2025 7:[address] [facility] Creatinine 0.68 0.50 - 1.10 mg/dL LAB CHEMISTRY METHOD 05/10/2025 7:[address] [facility] eGFR 87 >=60 mL/min/1. 73m2 LAB CHEMISTRY METHOD 05/10/2025 7:[address] [facility] Comment:Calculation based on the Chronic Kidney Disease Epidemiology Collaboration (CKD-EPI) equation refit without adjustment for race. BUN/Creatinine Ratio 39.7 LAB CHEMISTRY METHOD 05/10/2025 7:[address] [facility] Calcium 8.6 8.5 - 10.5 mg/dL LAB CHEMISTRY METHOD 05/10/2025 7:[address] [facility] Blood Venous blood specimen / Unknown Venipuncture / Unknown 05/10/2025 6:01 AM EST 05/10/2025 6:22 AM EST us Mecca Barrios MD LAB BLOOD ORDERABLES Final R esult [facility] [address] [place] [address], * Transfuse RBC, Leukoreduced (05/09/2025 9:42 PM EST) us Mecca Barrios MD BLOOD TRANSFUSION ORDERABLES Final Result * Transfuse RBC: 1 Units, Leukoreduced (05/09/2025 9:42 PM EST) us Mecca Barrios MD BLOOD TRANSFUSION ORDERABLES Final Result * Type and screen (05/09/2025 1:41 PM EST) ABO Group O 05/09/2025 3:07 PM EST [facility] Rh Type Positive 05/09/2025 3:[address] [facility] Antibody Screen Negative 05/09/2025 3:[address] [facility] Blood Venous blood specimen / Unknown Venipuncture / Unknown 05/09/2025 1:41 PM EST 05/09/2025 1:50 PM EST Estate Sophie [facility] LAB BLOOD BANK TEST ORDERABL ES Final Result [facility] [address] [place] [address], * Prepare RBC: 1 Units, Leukoreduced (05/09/2025 1:28 PM EST) Product Code [id number] 05/09/2025 3:[address] [facility] Unit Number [id number] 05/09/20 3:[address] [facility] Crossmatch Compatible 05/09/2025 3:[address] [facility] Dispense Status Transfused 05/09/2025 3:[address] [facility] Unit ABO Rh ONEG 05/09/2025 3:[address] [facility] Unit Expiration Date Time [id number] 05/09/2025 3:[address] [facility] Unit Blood Type 9500 05/09/2025 3:[address] [facility] Blood Venous blood specimen / Unknown 05/09/2025 1:28 PM EST 05/09/2025 1:50 PM EST us Mecca Barrios MD BLOOD BANK PRODUCT ORDERABLE S Final Result [facility] [address] [place] [address], [place] [phone] * POCT Glucose, blood (05/09/2025 7:56 AM EST) [facility] Glucose POCT 88 70 - 100 mg/dL 05/09/2025 7:56 AM EST [facility] Blood Capillary blood specimen / Unknown 05/09/2025 7:56 AM EST 05/09/2025 7:58 AM EST us Mecca Barrios MD LAB POINT OF CARE TE ST DOCKED DEVICE UNSOLICITED RESULTS Final Result Performing Organization Address City/[facility]/ZIP Co de Phone Number [facility] [address] [place] [address], [place] [phone] * (ABNORMAL) CBC auto differential (05/09/2025 6:51 AM EST) [facility] WBC 7.8 4.8 - 10.8 K/mcL LAB HEMETOLOGY METHOD 05/09/2025 7:[address] [facility] RBC 2.80(L) 3.80 - 4.80 M/mcL LAB HEMETOLOGY METHOD 05/09/2025 7:[address] [facility] Hemoglobin 8.2(L) 11.5 - 16.0 g/dL LAB HEMETOLOGY METHOD 05/09/2025 7:[address] [facility] Hematocrit 26.3(L) 35.0 - 47.0 % LAB HEMETOLOGY METHOD 05/09/2025 7:[address] [facility] MCV 93.9 79.0 - 98.0 FL LAB HEMETOLOGY METHOD 05/09/2025 7:[address] [facility] MCH 29.3 27.0 - 32.0 pcg LAB HEMETOLOGY METHOD 05/09/2025 7:[address] [facility] MCHC 31.2(L) 32.0 - 37.0 g/dL LAB HEMETOLOGY METHOD 05/09/2025 7:[address] [facility] RDW 18.2(H) 11.0 - 15.0 % LAB HEMETOLOGY METHOD 05/09/2025 7:[address] [facility] Platelets 305 130 - 400 K/mcL LAB HEMETOLOGY METHOD 05/09/2025 7:[address] [facility] MPV 9.4 7.0 - 11.0 FL LAB HEMETOLOGY METHOD 05/09/2025 7:[address] [facility] NRBC 0.0 <1.0 % LAB HEMETOLOGY METHOD 05/09/2025 7:[address] [facility] NRBC Absolute 0.00 <0.10 K/mcL LAB HEMETOLOGY METHOD 05/09/2025 7:[address] [facility] Neutrophils Relative 67.2 % LAB HEMETOLOGY METHOD 05/09/2025 7:[address] [facility] Lymphocytes Relative 14.1 % LAB HEMETOLOGY METHOD 05/09/2025 7:[address] [facility] Monocytes Relative 13.3 % LAB HEMETOLOGY METHOD 05/09/2025 7:[address] [facility] Eosinophils Relative 4.0 % LAB HEMETOLOGY METHOD 05/09/2025 7:[address] [facility] Basophils Relative 0.6 % LAB HEMETOLOGY METHOD 05/09/2025 7:[address] [facility] Immature Granulocytes Relative 0.8 % LAB HEMETOLOGY METHOD 05/09/2025 7:[address] [facility] Neutrophils Absolute 5.25 1.50 - 7.00 K/mcL LAB HEMETOLOGY METHOD 05/09/2025 7:55 AM EST [facility] Lymphocytes Absolute 1.10 1.00 - 5.00 K/[facility] LAB HEMETOLOGY METHOD 05/09/2025 7:[address] [facility] Monocytes Absolute 1.04(H) 0.20 - 1.00 K/[facility] LAB HEMETOLOGY METHOD 05/09/2025 7:55 AM EST [facility] Eosinophils Absolute 0.31 0.00 - 0.50 K/[facility] LAB HEMETOLOGY METHOD 05/09/2025 7:55 AM EST [facility] Basophils Absolute 0.05 0.00 - 0.20 K/[facility] LAB HEMETOLOGY METHOD 05/09/2025 7:[address] [facility] Immature Granulocytes Absolute 0.06(H) 0.00 - 0.03 K/[facility] LAB HEMETOLOGY METHOD 05/09/2025 7:55 AM EST [facility] Blood Venous blood specimen / Unknown Venipuncture / Unknown 05/09/2025 6:51 AM EST 05/09/2025 7:27 AM EST Adelina SUMNER LAB BLOOD ORDERABLES Final R esult [facility] [address] [place] [address], * SST tube (05/09/2025 6:48 AM EST) Extra Tube Hold for add-ons. 05/09/2025 9:01 AM EST [facility] Comment:Auto resulted. Blood Venous blood specimen / Unknown 05/09/2025 6:48 AM EST 05/09/2025 7:30 AM EST Mecca Barrios MD LAB BLOOD ORDERABLES Final R esult [facility] [address] [place] [address], * (ABNORMAL) CBC auto differential (05/08/2025 7:01 AM EST) WBC 8.6 4.8 - 10.8 K/mcL LAB HEMETOLOGY METHOD 05/08/2025 8:15 AM EST [facility] RBC 2.90(L) 3.80 - 4.80 M/mcL LAB HEMETOLOGY METHOD 05/08/2025 8:[address] [facility] Hemoglobin 8.7(L) 11.5 - 16.0 g/dL LAB HEMETOLOGY METHOD 05/08/2025 8:[address] [facility] Hematocrit 26.5(L) 35.0 - 47.0 % LAB HEMETOLOGY METHOD 05/08/2025 8:[address] [facility] MCV 91.4 79.0 - 98.0 FL LAB HEMETOLOGY METHOD 05/08/2025 8:[address] [facility] MCH 30.0 27.0 - 32.0 pcg LAB HEMETOLOGY METHOD 05/08/2025 8:[address] [facility] MCHC 32.8 32.0 - 37.0 g/dL LAB HEMETOLOGY METHOD 05/08/2025 8:[address] [facility] RDW 18.9(H) 11.0 - 15.0 % LAB HEMETOLOGY METHOD 05/08/2025 8:[address] [facility] Platelets 296 130 - 400 K/mcL LAB HEMETOLOGY METHOD 05/08/2025 8:[address] [facility] MPV 9.6 7.0 - 11.0 FL LAB HEMETOLOGY METHOD 05/08/2025 8:[address] [facility] NRBC 0.0 <1.0 % LAB HEMETOLOGY METHOD 05/08/2025 8:15 AM [facility] NRBC Absolute 0.00 <0.10 K/mcL LAB HEMETOLOGY METHOD 05/08/2025 8:[address] [facility] Neutrophils Relative 69.0 % LAB HEMETOLOGY METHOD 05/08/2025 8:[address] [facility] Lymphocytes Relative 13.3 % LAB HEMETOLOGY METHOD 05/08/2025 8:[address] [facility] Monocytes Relative 13.3 % LAB HEMETOLOGY METHOD 05/08/2025 8:[address] [facility] Eosinophils Relative 2.9 % LAB HEMETOLOGY METHOD 05/08/2025 8:[address] [facility] Basophils Relative 0.3 % LAB HEMETOLOGY METHOD 05/08/2025 8:[address] [facility] Immature Granulocytes Relative 1.2 % LAB HEMETOLOGY METHOD 05/08/2025 8:[address] [facility] Neutrophils Absolute 5.95 1.50 - 7.00 K/mcL LAB HEMETOLOGY METHOD 05/08/2025 8:[address] [facility] Lymphocytes Absolute 1.15 1.00 - 5.00 K/mcL LAB HEMETOLOGY METHOD 05/08/2025 8:[address] [facility] Monocytes Absolute 1.15(H) 0.20 - 1.00 K/mcL LAB HEMETOLOGY METHOD 05/08/2025 8:[address] [facility] Eosinophils Absolute 0.25 0.00 - 0.50 K/mcL LAB HEMETOLOGY METHOD 05/08/2025 8:[address] [facility] Basophils Absolute 0.03 0.00 - 0.20 K/mcL LAB HEMETOLOGY METHOD 05/08/2025 8:[address] [facility] Immature Granulocytes Absolute 0.10(H) 0.00 - 0.03 K/mcL LAB HEMETOLOGY METHOD 05/08/2025 8:[address] [facility] Blood Venous blood specimen / Unknown Venipuncture / Unknown 05/08/2025 7:01 AM EST 05/08/2025 7:57 AM EST Estate Sophie [facility]IT[facility] LAB BLOOD ORDERABLES Final R esult [facility] [address] [place] [address], [place] [phone] * (ABNORMAL) Basic metabolic panel (05/08/2025 7:01 AM EST) Sodium 140 133 - 145 mmol/L LAB CHEMISTRY METHOD 05/08/2025 8:[address] [facility] Potassium 4.3 3.5 - 5.5 mmol/L LAB CHEMISTRY METHOD 05/08/2025 8:[address] [facility] Chloride 105 96 - 110 mmol/L LAB CHEMISTRY METHOD 05/08/2025 8:[address] [facility] CO2 30 21 - 32 mmol/L LAB CHEMISTRY METHOD 05/08/2025 8:[address] [facility] Anion Gap 5 3 - 11 LAB CHEMISTRY METHOD 05/08/2025 8:[address] [facility] Glucose 95 70 - 100 mg/dL LAB CHEMISTRY METHOD 05/08/2025 8:[address] [facility] BUN 26(H) 5 - 25 mg/dL LAB CHEMISTRY METHOD 05/08/2025 8:[address] [facility] Creatinine 0.56 0.50 - 1.10 mg/dL LAB CHEMISTRY METHOD 05/08/2025 8:[address] [facility] eGFR 91 >=60 mL/min/1. 73m2 LAB CHEMISTRY METHOD 05/08/2025 8:[address] [facility] Comment:Calculation based on the Chronic Kidney Disease Epidemiology Collaboration (CKD-EPI) equation refit without adjustment for race. BUN/Creatinine Ratio 46.4 LAB CHEMISTRY METHOD 05/08/2025 8:[address] [facility] Calcium 8.1(L) 8.5 - 10.5 mg/dL LAB CHEMISTRY METHOD 05/08/2025 8:[address] [facility] Blood Venous blood specimen / Unknown Venipuncture / Unknown 05/08/2025 7:01 AM EST 05/08/2025 7:57 AM EST us Mecca Barrios MD LAB BLOOD ORDERABLES Final R esult [facility] [address] [place] [address], * Transfuse RBC, Leukoreduced (05/07/2025 3:19 PM EST) us Mecca Barrios MD BLOOD TRANSFUSION ORDERABLES Final Result * Transfuse RBC: 1 Units, Leukoreduced (05/07/2025 3:19 PM EST) us Mecca Barrios MD BLOOD TRANSFUSION ORDERABLES Final Result * Prepare RBC: 1 Units, Leukoreduced (05/07/2025 9:11 AM EST) Product Code [id number] 05/07/2025 10:[address] [facility] Unit Number [id number] 05/07/20 10:[address] [facility] Crossmatch Compatible 05/07/2025 9:[address] [facility] Dispense Status Transfused 05/07/2025 10:[address] [facility] Unit ABO Rh OPOS 05/07/2025 10:[address] [facility] Unit Expiration Date Time [id number] 05/07/2025 10:19 AM EST [facility] Unit Blood Type 5100 05/07/2025 10:[address] [facility] Blood Venous blood specimen / Unknown 05/07/2025 9:11 AM EST 05/04/2025 3:37 PM EST Mecca Barrios MD BLOOD BANK PRODUCT ORDERABLE S Final Result [facility] [address] [place] [address], * (ABNORMAL) CBC auto differential (05/07/2025 6:35 AM EST) WBC 10.6 4.8 - 10.8 K/mcL LAB HEMETOLOGY METHOD 05/07/2025 7:[address] [facility] RBC 2.20(L) 3.80 - 4.80 M/mcL LAB HEMETOLOGY METHOD 05/07/2025 7:[address] [facility] Hemoglobin 6.7(L) 11.5 - 16.0 g/dL LAB HEMETOLOGY METHOD 05/07/2025 7:[address] [facility] Hematocrit 20.1(L) 35.0 - 47.0 % LAB HEMETOLOGY METHOD 05/07/2025 7:[address] [facility] MCV 92.6 79.0 - 98.0 FL LAB HEMETOLOGY METHOD 05/07/2025 7:[address] [facility] MCH 30.9 27.0 - 32.0 pcg LAB HEMETOLOGY METHOD 05/07/2025 7:[address] [facility] MCHC 33.3 32.0 - 37.0 g/dL LAB HEMETOLOGY METHOD 05/07/2025 7:[address] [facility] RDW 17.9(H) 11.0 - 15.0 % LAB HEMETOLOGY METHOD 05/07/2025 7:[address] [facility] Platelets 241 130 - 400 K/mcL LAB HEMETOLOGY METHOD 05/07/2025 7:[address] [facility] MPV 10.0 7.0 - 11.0 FL LAB HEMETOLOGY METHOD 05/07/2025 7:[address] [facility] NRBC 0.0 <1.0 % LAB HEMETOLOGY METHOD 05/07/2025 7:[address] [facility] NRBC Absolute 0.00 <0.10 K/mcL LAB HEMETOLOGY METHOD 05/07/2025 7:[address] [facility] Neutrophils Relative 71.2 % LAB HEMETOLOGY METHOD 05/07/2025 7:[address] [facility] Lymphocytes Relative 10.8 % LAB HEMETOLOGY METHOD 05/07/2025 7:[address] [facility] Monocytes Relative 15.7 % LAB HEMETOLOGY METHOD 05/07/2025 7:[address] [facility] Eosinophils Relative 1.4 % LAB HEMETOLOGY METHOD 05/07/2025 7:[address] [facility] Basophils Relative 0.2 % LAB HEMETOLOGY METHOD 05/07/2025 7:[address] [facility] Immature Granulocytes Relative 0.7 % LAB HEMETOLOGY METHOD 05/07/2025 7:[address] [facility] Neutrophils Absolute 7.53(H) 1.50 - 7.00 K/mcL LAB HEMETOLOGY METHOD 05/07/2025 7:[address] [facility] Lymphocytes Absolute 1.14 1.00 - 5.00 K/mcL LAB HEMETOLOGY METHOD 05/07/2025 7:[address] [facility] Monocytes Absolute 1.66(H) 0.20 - 1.00 K/mcL LAB HEMETOLOGY METHOD 05/07/2025 7:13 AM EST [facility] Eosinophils Absolute 0.15 0.00 - 0.50 K/mcL LAB HEMETOLOGY METHOD 05/07/2025 7:[address] [facility] Basophils Absolute 0.02 0.00 - 0.20 K/mcL LAB HEMETOLOGY METHOD 05/07/2025 7:13 AM EST [facility] Immature Granulocytes Absolute 0.07(H) 0.00 - 0.03 K/mcL LAB HEMETOLOGY METHOD 05/07/2025 7:[address] [facility] Blood Venous blood specimen / Unknown Venipuncture / Unknown 05/07/2025 6:35 AM EST 05/07/2025 6:58 AM EST Estaristides Barrios MD LAB BLOOD ORDERABLES Final R esult [facility] [address] [place] [address], * (ABNORMAL) Basic metabolic panel (05/07/2025 6:34 AM EST) Sodium 139 133 - 145 mmol/L LAB CHEMISTRY METHOD 05/07/2025 7:[address] [facility] Potassium 3.7 3.5 - 5.5 mmol/L LAB CHEMISTRY METHOD 05/07/2025 7:[address] [facility] Chloride 104 96 - 110 mmol/L LAB CHEMISTRY METHOD 05/07/2025 7:[address] [facility] CO2 30 21 - 32 mmol/L LAB CHEMISTRY METHOD 05/07/2025 7:[address] [facility] Anion Gap 5 3 - 11 LAB CHEMISTRY METHOD 05/07/2025 7:[address] [facility] Glucose 106(H) 70 - 100 mg/dL LAB CHEMISTRY METHOD 05/07/2025 7:[address] [facility] BUN 22 5 - 25 mg/dL LAB CHEMISTRY METHOD 05/07/2025 7:[address] [facility] Creatinine 0.71 0.50 - 1.10 mg/dL LAB CHEMISTRY METHOD 05/07/2025 7:[address] [facility] eGFR 85 >=60 mL/min/1. 73m2 LAB CHEMISTRY METHOD 05/07/2025 7:[address] [facility] Comment:Calculation based on the Chronic Kidney Disease Epidemiology Collaboration (CKD-EPI) equation refit without adjustment for race. BUN/Creatinine Ratio 31.0 LAB CHEMISTRY METHOD 05/07/2025 7:[address] [facility] Calcium 8.4(L) 8.5 - 10.5 mg/dL LAB CHEMISTRY METHOD 05/07/2025 7:[address] [facility] Blood Venous blood specimen / Unknown Venipuncture / Unknown 05/07/2025 6:34 AM EST 05/07/2025 6:59 AM EST us Mecca Barrios MD LAB BLOOD ORDERABLES Final R esult [facility] [address] [place] [address], * Transfuse RBC: 1 Units, Leukoreduced (05/06/2025 12:43 PM EST) us Mecca Barrios MD BLOOD TRANSFUSION ORDERABLES Final Result * Transfuse RBC, Leukoreduced (05/06/2025 12:43 PM EST) us Mecca Barrios MD BLOOD TRANSFUSION ORDERABLES Final Result * Prepare RBC: 1 Units, Leukoreduced (05/06/2025 8:34 AM EST) Product Code [id number] 05/06/2025 9:[address] [facility] Unit Number [id number] 05/06/20 9:[address] [facility] Crossmatch Compatible 05/06/2025 8:[address] [facility] Dispense Status Issued 05/06/2025 9:[address] [facility] Unit ABO Rh OPOS 05/06/2025 9:[address] [facility] Unit Expiration Date Time [id number] 05/06/2025 9:[address] [facility] Unit Blood Type 5100 05/06/2025 9:[address] [facility] Blood Venous blood specimen / Unknown 05/06/2025 8:34 AM EST 05/04/2025 3:37 PM EST Mecca Barrios MD BLOOD BANK PRODUCT ORDERABLE S Final Result [facility] [address] [place] [address], * (ABNORMAL) Basic metabolic panel (05/06/2025 6:22 AM EST) Sodium 139 133 - 145 mmol/L LAB CHEMISTRY METHOD 05/06/2025 7:[address] [facility] Potassium 4.6 3.5 - 5.5 mmol/L LAB CHEMISTRY METHOD 05/06/2025 7:[address] [facility] Chloride 103 96 - 110 mmol/L LAB CHEMISTRY METHOD 05/06/2025 7:[address] [facility] CO2 29 21 - 32 mmol/L LAB CHEMISTRY METHOD 05/06/2025 7:[address] [facility] Anion Gap 7 3 - 11 LAB CHEMISTRY METHOD 05/06/2025 7:[address] [facility] Glucose 142(H) 70 - 100 mg/dL LAB CHEMISTRY METHOD 05/06/2025 7:[address] [facility] BUN 23 5 - 25 mg/dL LAB CHEMISTRY METHOD 05/06/2025 7:[address] [facility] Creatinine 0.80 0.50 - 1.10 mg/dL LAB CHEMISTRY METHOD 05/06/2025 7:[address] [facility] eGFR 74 >=60 mL/min/1. 73m2 LAB CHEMISTRY METHOD 05/06/2025 7:[address] [facility] Comment:Calculation based on the Chronic Kidney Disease Epidemiology Collaboration (CKD-EPI) equation refit without adjustment for race. BUN/Creatinine Ratio 28.8 LAB CHEMISTRY METHOD 05/06/2025 7:[address] [facility] Calcium 8.7 8.5 - 10.5 mg/dL LAB CHEMISTRY METHOD 05/06/2025 7:[address] [facility] Blood Venous blood specimen / Unknown Venipuncture / Unknown 05/06/2025 6:22 AM EST 05/06/2025 6:49 AM EST us Sindi SUMNER LAB BLOOD ORDERABLES Final Resul t [facility] [address] [place] [address], * (ABNORMAL) Complete blood count (05/06/2025 6:22 AM EST) WBC 10.0 4.8 - 10.8 K/mcL LAB HEMETOLOGY METHOD 05/06/2025 7:[address] [facility] RBC 2.20(L) 3.80 - 4.80 M/mcL LAB HEMETOLOGY METHOD 05/06/2025 7:[address] [facility] Hemoglobin 6.8(L) 11.5 - 16.0 g/dL LAB HEMETOLOGY METHOD 05/06/2025 7:[address] [facility] Hematocrit 22.2(L) 35.0 - 47.0 % LAB HEMETOLOGY METHOD 05/06/2025 7:[address] [facility] MCV 99.1(H) 79.0 - 98.0 FL LAB HEMETOLOGY METHOD 05/06/2025 7:[address] [facility] MCH 30.4 27.0 - 32.0 pcg LAB HEMETOLOGY METHOD 05/06/2025 7:[address] [facility] MCHC 30.6(L) 32.0 - 37.0 g/dL LAB HEMETOLOGY METHOD 05/06/2025 7:[address] [facility] RDW 16.3(H) 11.0 - 15.0 % LAB HEMETOLOGY METHOD 05/06/2025 7:[address] [facility] Platelets 304 130 - 400 K/mcL LAB HEMETOLOGY METHOD 05/06/2025 7:[address] [facility] MPV 9.1 7.0 - 11.0 FL LAB HEMETOLOGY METHOD 05/06/2025 7:[address] [facility] NRBC 0.0 <1.0 % LAB HEMETOLOGY METHOD 05/06/2025 7:[address] [facility] NRBC Absolute 0.00 <0.10 K/mcL LAB HEMETOLOGY METHOD 05/06/2025 7:[address] [facility] Blood Venous blood specimen / Unknown Venipuncture / Unknown 05/06/2025 6:22 AM EST 05/06/2025 6:49 AM EST us Sindi SUMNER LAB BLOOD ORDERABLES Final Resul t [facility] [address] [place] [address], * XR Femur 2+ Views Right (05/05/2025 1:00 PM EST) Anatomical Region Laterality Modality Lower Extremities, Femur Right Radio F luoroscopy 05/06/2025 7:45 AM EST Impressions 05/06/2025 7:48 AM EST Satisfactory appearance following internal fusion of a fracture of the distal right femur. Pre-existing surgical hardware is also again noted. The dose-area product for this procedure was 1655.5 mGy*cm2. PQRI CPT II G9500 -------- FINAL REPORT -------- Dictated By: Casimiro Ryan Dictated Date: 05/06/2025 07:45 ET Assigned Physician: Casimiro Ryan Reviewed and Electronically Signed By: Casimiro Ryan Signed Date: 05/06/2025 07:48 ET Workstation ID: [id number] Transcribed By: Self Edit Transcribed Date: 05/06/2025 07:45 ET Narrative 05/06/2025 7:48 AM EST HISTORY: The patient is an 84-year-old female with a fracture of the distal right femur. FINDINGS: 8 fluoroscopic spot radiographs of the right femur obtained in the operating room are submitted. The study documents placement of an internal fixation plate and screws transfixing the fracture of the distal femur initially seen on preoperative radiographs performed 05/01/2025. The surgical hardware appears well-positioned and intact. Near-anatomic alignment has been restored to the fracture site. 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 Procedure Note Casimiro Ryan MD - 05/06/2025 HISTORY: The patient is an 84-year-old female with a fracture of thedistal right femur. FINDINGS: 8 fluoroscopic spot radiographs of the right femur obtained inthe operating room are submitted. The study documents placement of aninternal fixation plate and screws transfixing the fracture of the distalfemur initially seen on preoperative radiographs performed 05/01/2025. Thesurgical hardware appears well-positioned and intact. Near-anatomicalignment has been restored to the fracture site. Pre- existing internalfixation plate and screws are also noted in the femur, and the patient isseen to have undergone previous total right hip replacement surgery, asalso demonstrated on the preoperative study. IMPRESSION: Satisfactory appearance following internal fusion of a fracture of thedistal right femur. Pre-existing surgical hardware is also again noted. The dose-area product for this procedure was 1655.5 mGy*cm2. PQRI CPT II G9500 -------- FINAL REPORT -------- Dictated By: Casimiro Ryan Dictated Date: 05/06/2025 07:45 ET Assigned Physician: Casimiro Ryan Reviewed and Electronically Signed By: Casimiro Ryan Signed Date: 05/06/2025 07:48 ET Workstation ID: [id number] Transcribed By: Self Edit Transcribed Date: 05/06/2025 07:45 ET Brian Baeza MD IMG XR PROCEDURES Final Resul t * (ABNORMAL) CBC auto differential (05/05/2025 6:15 AM EST) WBC 7.1 4.8 - 10.8 K/mcL LAB HEMETOLOGY METHOD 05/05/2025 8:[address] [facility] RBC 2.90(L) 3.80 - 4.80 M/mcL LAB HEMETOLOGY METHOD 05/05/2025 8:[address] [facility] Hemoglobin 8.8(L) 11.5 - 16.0 g/dL LAB HEMETOLOGY METHOD 05/05/2025 8:[address] [facility] Hematocrit 28.7(L) 35.0 - 47.0 % LAB HEMETOLOGY METHOD 05/05/2025 8:[address] [facility] MCV 98.3(H) 79.0 - 98.0 FL LAB HEMETOLOGY METHOD 05/05/2025 8:[address] [facility] MCH 30.1 27.0 - 32.0 pcg LAB HEMETOLOGY METHOD 05/05/2025 8:[address] [facility] MCHC 30.7(L) 32.0 - 37.0 g/dL LAB HEMETOLOGY METHOD 05/05/2025 8:[address] [facility] RDW 16.8(H) 11.0 - 15.0 % LAB HEMETOLOGY METHOD 05/05/2025 8:[address] [facility] Platelets 299 130 - 400 K/mcL LAB HEMETOLOGY METHOD 05/05/2025 8:[address] [facility] MPV 9.6 7.0 - 11.0 FL LAB HEMETOLOGY METHOD 05/05/2025 8:[address] [facility] NRBC 0.0 <1.0 % LAB HEMETOLOGY METHOD 05/05/2025 8:[address] [facility] NRBC Absolute 0.00 <0.10 K/mcL LAB HEMETOLOGY METHOD 05/05/2025 8:[address] [facility] Neutrophils Relative 62.8 % LAB HEMETOLOGY METHOD 05/05/2025 8:[address] [facility] Lymphocytes Relative 15.9 % LAB HEMETOLOGY METHOD 05/05/2025 8:[address] [facility] Monocytes Relative 14.5 % LAB HEMETOLOGY METHOD 05/05/2025 8:[address] [facility] Eosinophils Relative 5.9 % LAB HEMETOLOGY METHOD 05/05/2025 8:[address] [facility] Basophils Relative 0.6 % LAB HEMETOLOGY METHOD 05/05/2025 8:[address] [facility] Immature Granulocytes Relative 0.3 % LAB HEMETOLOGY METHOD 05/05/2025 8:[address] [facility] Neutrophils Absolute 4.48 1.50 - 7.00 K/mcL LAB HEMETOLOGY METHOD 05/05/2025 8:[address] [facility] Lymphocytes Absolute 1.13 1.00 - 5.00 K/mcL LAB HEMETOLOGY METHOD 05/05/2025 8:02 AM EST [facility] Monocytes Absolute 1.03(H) 0.20 - 1.00 K/[facility] LAB HEMETOLOGY METHOD 05/05/2025 8:[address] [facility] Eosinophils Absolute 0.42 0.00 - 0.50 K/[facility] LAB HEMETOLOGY METHOD 05/05/2025 8:02 AM EST [facility] Basophils Absolute 0.04 0.00 - 0.20 K/[facility] LAB HEMETOLOGY METHOD 05/05/2025 8:[address] [facility] Immature Granulocytes Absolute 0.02 0.00 - 0.03 K/[facility] LAB HEMETOLOGY METHOD 05/05/2025 8:[address] [facility] Blood Venous blood specimen / Unknown Venipuncture / Unknown 05/05/2025 6:15 AM EST 05/05/2025 7:45 AM EST us [employer] Sophie SOLITARIO LAB BLOOD ORDERABLES Final R esult [facility] [address] [place] [address], * (ABNORMAL) Basic metabolic panel (05/05/2025 6:15 AM EST) Sodium 141 133 - 145 mmol/L LAB CHEMISTRY METHOD 05/05/2025 8:[address] [facility] Potassium 4.3 3.5 - 5.5 mmol/L LAB CHEMISTRY METHOD 05/05/2025 8:[address] [facility] Chloride 107 96 - 110 mmol/L LAB CHEMISTRY METHOD 05/05/2025 8:[address] [facility] CO2 31 21 - 32 mmol/L LAB CHEMISTRY METHOD 05/05/2025 8:[address] [facility] Anion Gap 3 3 - 11 LAB CHEMISTRY METHOD 05/05/2025 8:[address] [facility] Glucose 85 70 - 100 mg/dL LAB CHEMISTRY METHOD 05/05/2025 8:[address] [facility] BUN 20 5 - 25 mg/dL LAB CHEMISTRY METHOD 05/05/2025 8:[address] [facility] Creatinine 0.71 0.50 - 1.10 mg/dL LAB CHEMISTRY METHOD 05/05/2025 8:[address] [facility] eGFR 85 >=60 mL/min/1. 73m2 LAB CHEMISTRY METHOD 05/05/2025 8:[address] [facility] Comment:Calculation based on the Chronic Kidney Disease Epidemiology Collaboration (CKD-EPI) equation refit without adjustment for race. BUN/Creatinine Ratio 28.2 LAB CHEMISTRY METHOD 05/05/2025 8:[address] [facility] Calcium 8.1(L) 8.5 - 10.5 mg/dL LAB CHEMISTRY METHOD 05/05/2025 8:[address] [facility] Blood Venous blood specimen / Unknown Venipuncture / Unknown 05/05/2025 6:15 AM EST 05/05/2025 7:45 AM EST us Sindi SUMNER LAB BLOOD ORDERABLES Final Resul t [facility] [address] [place] [address], * Type and screen (05/04/2025 3:25 PM EST) ABO Group O 05/04/2025 6:[address] [facility] Rh Type Positive 05/04/2025 6:[address] [facility] Antibody Screen Negative 05/04/2025 6:[address] [facility] Blood Venous blood specimen / Unknown Venipuncture / Unknown 05/04/2025 3:25 PM EST 05/04/2025 3:37 PM EST us Sindi SUMNER LAB BLOOD BANK TEST ORDERABLES F inal Result [facility] [address] [place] [address], [place] [phone] * Prepare RBC: 2 Units, Leukoreduced (05/04/2025 2:56 PM EST) Product Code [id number] 05/04/2025 3:22 PM EST [facility] Unit Number [id number] 05/04/20 3:[address] [facility] Crossmatch Compatible 05/04/2025 3:[address] [facility] Dispense Status Released From Crossmatch 05/04/2025 3:22 PM EST [facility] Unit ABO Rh OPOS 05/04/2025 3:22 PM EST [facility] Unit Expiration Date Time [id number] 05/04/2025 3:22 PM EST [facility] Unit Blood Type 5100 05/04/2025 3:[address] [facility] Product Code [id number] 05/04/2025 3:22 PM EST [facility] Unit Number [id number] 05/04/20 3:[address] [facility] Crossmatch Compatible 05/04/2025 3:06 PM EST [facility] Dispense Status Transfused 05/04/2025 3:[address] [facility] Unit ABO Rh OPOS 05/04/2025 3:[address] [facility] Unit Expiration Date Time [id number] 05/04/2025 3:22 PM EST [facility] Unit Blood Type 5100 05/04/2025 3:22 PM EST [facility] Blood Venous blood specimen / Unknown 05/04/2025 2:56 PM EST 05/01/2025 4:43 PM EST us Sindi SUMNER BLOOD BANK PRODUCT ORDERABLES Fi nal Result [facility] [address] [place] [address], * (ABNORMAL) CBC auto differential (05/04/2025 7:00 AM EST) WBC 7.4 4.8 - 10.8 K/mcL LAB HEMETOLOGY METHOD 05/04/2025 7:[address] [facility] RBC 2.70(L) 3.80 - 4.80 M/mcL LAB HEMETOLOGY METHOD 05/04/2025 7:[address] [facility] Hemoglobin 8.4(L) 11.5 - 16.0 g/dL LAB HEMETOLOGY METHOD 05/04/2025 7:[address] [facility] Hematocrit 26.1(L) 35.0 - 47.0 % LAB HEMETOLOGY METHOD 05/04/2025 7:[address] [facility] MCV 96.3 79.0 - 98.0 FL LAB HEMETOLOGY METHOD 05/04/2025 7:[address] [facility] MCH 31.0 27.0 - 32.0 pcg LAB HEMETOLOGY METHOD 05/04/2025 7:[address] [facility] MCHC 32.2 32.0 - 37.0 g/dL LAB HEMETOLOGY METHOD 05/04/2025 7:[address] [facility] RDW 16.8(H) 11.0 - 15.0 % LAB HEMETOLOGY METHOD 05/04/2025 7:[address] [facility] Platelets 280 130 - 400 K/mcL LAB HEMETOLOGY METHOD 05/04/2025 7:[address] [facility] MPV 8.9 7.0 - 11.0 FL LAB HEMETOLOGY METHOD 05/04/2025 7:[address] [facility] NRBC 0.0 <1.0 % LAB HEMETOLOGY METHOD 05/04/2025 7:[address] [facility] NRBC Absolute 0.00 <0.10 K/mcL LAB HEMETOLOGY METHOD 05/04/2025 7:[address] [facility] Neutrophils Relative 67.6 % LAB HEMETOLOGY METHOD 05/04/2025 7:[address] [facility] Lymphocytes Relative 13.4 % LAB HEMETOLOGY METHOD 05/04/2025 7:[address] [facility] Monocytes Relative 14.8 % LAB HEMETOLOGY METHOD 05/04/2025 7:[address] [facility] Eosinophils Relative 3.4 % LAB HEMETOLOGY METHOD 05/04/2025 7:[address] [facility] Basophils Relative 0.4 % LAB HEMETOLOGY METHOD 05/04/2025 7:[address] [facility] Immature Granulocytes Relative 0.4 % LAB HEMETOLOGY METHOD 05/04/2025 7:[address] [facility] Neutrophils Absolute 5.01 1.50 - 7.00 K/mcL LAB HEMETOLOGY METHOD 05/04/2025 7:[address] [facility] Lymphocytes Absolute 0.99(L) 1.00 - 5.00 K/mcL LAB HEMETOLOGY METHOD 05/04/2025 7:[address] [facility] Monocytes Absolute 1.10(H) 0.20 - 1.00 K/mcL LAB HEMETOLOGY METHOD 05/04/2025 7:37 AM EST [facility] Eosinophils Absolute 0.25 0.00 - 0.50 K/mcL LAB HEMETOLOGY METHOD 05/04/2025 7:37 AM EST [facility] Basophils Absolute 0.03 0.00 - 0.20 K/mcL LAB HEMETOLOGY METHOD 05/04/2025 7:[address] [facility] Immature Granulocytes Absolute 0.03 0.00 - 0.03 K/mcL LAB HEMETOLOGY METHOD 05/04/2025 7:37 AM EST [facility] Blood Venous blood specimen / Unknown Venipuncture / Unknown 05/04/2025 7:00 AM EST 05/04/2025 7:15 AM EST us Kitty Castellanos MD LAB BLOOD ORDERABLES Final Resu lt Performing Organization Address City/[facility]/ZIP Co de Phone Number [facility] [address] [place] [address], [place] [phone] * Prothrombin time with INR (05/04/2025 7:00 AM EST) Protime 13.8 10.6 - 13.9 sec LAB COAGULATION METHOD 05/04/2025 7:[address] [facility] INR 1.1 LAB COAGULATION METHOD 05/04/2025 7:[address] [facility] Blood Venous blood specimen / Unknown Venipuncture / Unknown 05/04/2025 7:00 AM EST 05/04/2025 7:15 AM EST us Kitty Castellanos MD LAB BLOOD ORDERABLES Final Resu lt [facility] [address] [place] [address], [place] [phone] * Phosphorus (05/04/2025 7:00 AM EST) Phosphorus 3.5 2.5 - 4.5 mg/dL LAB CHEMISTRY METHOD 05/04/2025 7:55 AM EST [facility] Blood Venous blood specimen / Unknown Venipuncture / Unknown 05/04/2025 7:00 AM EST 05/04/2025 7:15 AM EST us Kitty Castellanos MD LAB BLOOD ORDERABLES Final Resu lt [facility] [address] [place] [address], [place] [phone] * Magnesium (05/04/2025 7:00 AM EST) Pathologist [facility] Magnesium 1.9 1.9 - 2.6 mg/dL LAB CHEMISTRY METHOD 05/04/2025 7:55 AM EST [facility] Blood Venous blood specimen / Unknown Venipuncture / Unknown 05/04/2025 7:00 AM EST 05/04/2025 7:15 AM EST us Kitty Castellanos MD LAB BLOOD ORDERABLES Final Resu lt Performing Organization Address City/[facility]/ZIP Co de Phone Number [facility] [address] [place] [address], [place] [phone] * (ABNORMAL) Comprehensive metabolic panel (05/04/2025 7:00 AM EST) Pathologist [facility] Sodium 140 133 - 145 mmol/L LAB CHEMISTRY METHOD 05/04/2025 8:01 AM EST [facility] Potassium 3.8 3.5 - 5.5 mmol/L LAB CHEMISTRY METHOD 05/04/2025 8:01 AM EST [facility] Chloride 106 96 - 110 mmol/L LAB CHEMISTRY METHOD 05/04/2025 8:01 AM EST [facility] CO2 30 21 - 32 mmol/L LAB CHEMISTRY METHOD 05/04/2025 8:01 AM EST [facility] Anion Gap 4 3 - 11 LAB CHEMISTRY METHOD 05/04/2025 8:[address] [facility] Glucose 92 70 - 100 mg/dL LAB CHEMISTRY METHOD 05/04/2025 8:[address] [facility] BUN 14 5 - 25 mg/dL LAB CHEMISTRY METHOD 05/04/2025 8:[address] [facility] Creatinine 0.60 0.50 - 1.10 mg/dL LAB CHEMISTRY METHOD 05/04/2025 8:[address] [facility] eGFR 90 >=60 mL/min/1. 73m2 LAB CHEMISTRY METHOD 05/04/2025 8:[address] [facility] Comment:Calculation based on the Chronic Kidney Disease Epidemiology Collaboration (CKD-EPI) equation refit without adjustment for race. BUN/Creatinine Ratio 23.3 LAB CHEMISTRY METHOD 05/04/2025 8:[address] [facility] Calcium 8.5 8.5 - 10.5 mg/dL LAB CHEMISTRY METHOD 05/04/2025 8:[address] [facility] AST (SGOT) 13 10 - 42 unit/L LAB CHEMISTRY METHOD 05/04/2025 8:[address] [facility] ALT (SGPT) 15 10 - 60 unit/L LAB CHEMISTRY METHOD 05/04/2025 8:[address] [facility] Alkaline Phosphatase 77 42 - 121 unit/L LAB CHEMISTRY METHOD 05/04/2025 8:[address] [facility] Total Protein 5.2(L) 6.0 - 8.0 g/dL LAB CHEMISTRY METHOD 05/04/2025 8:[address] [facility] Albumin 2.5(L) 3.2 - 5.0 g/dL LAB CHEMISTRY METHOD 05/04/2025 8:[address] [facility] Total Bilirubin 0.7 0.0 - 1.4 mg/dL LAB CHEMISTRY METHOD 05/04/2025 8:[address] [facility] Blood Venous blood specimen / Unknown Venipuncture / Unknown 05/04/2025 7:00 AM EST 05/04/2025 7:15 AM EST us Kitty Castellanos MD LAB BLOOD ORDERABLES Final Resu lt Performing Organization Address City/[facility]/ZIP Co de Phone Number [facility] [address] [place] [address], [place] [phone] * SST tube (05/03/2025 6:48 AM EST) Pathologist [facility] Extra Tube Hold for add-ons. 05/03/2025 9:01 AM EST [facility] Comment:Auto resulted. Blood Venous blood specimen / Unknown Venipuncture / Unknown 05/03/2025 6:48 AM EST 05/03/2025 7:11 AM EST us Kitty Castellanos MD LAB BLOOD ORDERABLES Final Resu lt Performing Organization Address [facility]/ZIP Co de Phone Number [facility] [address] [place] [address], [place] [phone] * (ABNORMAL) Hemoglobin and hematocrit (05/03/2025 6:48 AM EST) Hemoglobin 8.5(L) 11.5 - 16.0 g/dL LAB HEMETOLOGY METHOD 05/03/2025 7:31 AM EST [facility] Hematocrit 27.2(L) 35.0 - 47.0 % LAB HEMETOLOGY METHOD 05/03/2025 7:31 AM EST [facility] Blood Venous blood specimen / Unknown Venipuncture / Unknown 05/03/2025 6:48 AM EST 05/03/2025 7:10 AM EST us Kitty Castellanos MD LAB BLOOD ORDERABLES Final Resu lt [facility] [address] [place] [address], [place] [phone] * (ABNORMAL) Iron and TIBC (05/02/2025 6:48 AM EST) [facility] Iron 22(L) 40 - 150 mcg/dL LAB CHEMISTRY METHOD 05/03/2025 1:58 AM EST [facility] TIBC 232(L) 250 - 450 mcg/dL LAB CHEMISTRY METHOD 05/03/2025 1:58 AM EST [facility] Iron Saturation 9(L) 15 - 50 % LAB CHEMISTRY METHOD 05/03/2025 1:58 AM EST [facility] Blood Venous blood specimen / Unknown Venipuncture / Unknown 05/02/2025 6:48 AM EST 05/02/2025 6:53 AM EST us Kitty Castellanos MD LAB BLOOD ORDERABLES Final Resu lt [facility] [address] [place] [address], [place] [phone] * Vitamin B12 (05/02/2025 6:48 AM EST) [facility] Vitamin B-12 434 250 - 900 pcg/mL LAB CHEMISTRY METHOD 05/02/2025 3:55 PM EST [facility] Blood Venous blood specimen / Unknown Venipuncture / Unknown 05/02/2025 6:48 AM EST 05/02/2025 6:53 AM EST us Kitty Castellanos MD LAB BLOOD ORDERABLES Final Resu lt [facility] [address] [place] [address], [place] [phone] * (ABNORMAL) Vitamin D 25 hydroxy (05/02/2025 6:48 AM EST) Vit D, 25-Hydroxy 21.9(L) 30.0 - 80.0 ng/mL LAB CHEMISTRY METHOD 05/02/2025 4:[address] [facility] Blood Venous blood specimen / Unknown Venipuncture / Unknown 05/02/2025 6:48 AM EST 05/02/2025 6:53 AM EST Kitty Castellanos MD LAB BLOOD ORDERABLES Final Resu lt [facility] [address] [place] [address], * (ABNORMAL) CBC auto differential (05/02/2025 6:48 AM EST) WBC 6.3 4.8 - 10.8 K/mcL LAB HEMETOLOGY METHOD 05/02/2025 7:[address] [facility] RBC 2.80(L) 3.80 - 4.80 M/mcL LAB HEMETOLOGY METHOD 05/02/2025 7:[address] [facility] Hemoglobin 8.5(L) 11.5 - 16.0 g/dL LAB HEMETOLOGY METHOD 05/02/2025 7:[address] [facility] Hematocrit 27.6(L) 35.0 - 47.0 % LAB HEMETOLOGY METHOD 05/02/2025 7:[address] [facility] MCV 98.2(H) 79.0 - 98.0 FL LAB HEMETOLOGY METHOD 05/02/2025 7:[address] [facility] MCH 30.2 27.0 - 32.0 pcg LAB HEMETOLOGY METHOD 05/02/2025 7:[address] [facility] MCHC 30.8(L) 32.0 - 37.0 g/dL LAB HEMETOLOGY METHOD 05/02/2025 7:[address] [facility] RDW 17.0(H) 11.0 - 15.0 % LAB HEMETOLOGY METHOD 05/02/2025 7:[address] [facility] Platelets 272 130 - 400 K/mcL LAB HEMETOLOGY METHOD 05/02/2025 7:[address] [facility] MPV 9.0 7.0 - 11.0 FL LAB HEMETOLOGY METHOD 05/02/2025 7:[address] [facility] NRBC 0.0 <1.0 % LAB HEMETOLOGY METHOD 05/02/2025 7:[address] [facility] NRBC Absolute 0.00 <0.10 K/mcL LAB HEMETOLOGY METHOD 05/02/2025 7:[address] [facility] Neutrophils Relative 62.9 % LAB HEMETOLOGY METHOD 05/02/2025 7:[address] [facility] Lymphocytes Relative 17.6 % LAB HEMETOLOGY METHOD 05/02/2025 7:[address] [facility] Monocytes Relative 14.8 % LAB HEMETOLOGY METHOD 05/02/2025 7:[address] [facility] Eosinophils Relative 4.1 % LAB HEMETOLOGY METHOD 05/02/2025 7:[address] [facility] Basophils Relative 0.3 % LAB HEMETOLOGY METHOD 05/02/2025 7:[address] [facility] Immature Granulocytes Relative 0.3 % LAB HEMETOLOGY METHOD 05/02/2025 7:[address] [facility] Neutrophils Absolute 3.95 1.50 - 7.00 K/mcL LAB HEMETOLOGY METHOD 05/02/2025 7:[address] [facility] Lymphocytes Absolute 1.11 1.00 - 5.00 K/mcL LAB HEMETOLOGY METHOD 05/02/2025 7:[address] [facility] Monocytes Absolute 0.93 0.20 - 1.00 K/mcL LAB HEMETOLOGY METHOD 05/02/2025 7:09 AM EST [facility] Eosinophils Absolute 0.26 0.00 - 0.50 K/[facility] LAB HEMETOLOGY METHOD 05/02/2025 7:[address] [facility] Basophils Absolute 0.02 0.00 - 0.20 K/[facility] LAB HEMETOLOGY METHOD 05/02/2025 7:09 AM EST [facility] Immature Granulocytes Absolute 0.02 0.00 - 0.03 K/[facility] LAB HEMETOLOGY METHOD 05/02/2025 7:[address] [facility] Blood Venous blood specimen / Unknown Venipuncture / Unknown 05/02/2025 6:48 AM EST 05/02/2025 6:53 AM EST us Miguelangel Winn MD LAB BLOOD ORDERABLES Final Re sult Performing Organization Address City/[facility]/ZIP Co de Phone Number [facility] [address] [place] [address], [place] [phone] * (ABNORMAL) Magnesium (05/02/2025 6:48 AM EST) Pathologist [facility] Magnesium 1.8(L) 1.9 - 2.6 mg/dL LAB CHEMISTRY METHOD 05/02/2025 7:53 AM EST [facility] Blood Venous blood specimen / Unknown Venipuncture / Unknown 05/02/2025 6:48 AM EST 05/02/2025 6:53 AM EST us Miguelangel Winn MD LAB BLOOD ORDERABLES Final Re sult [facility] [address] [place] [address], [place] [phone] * Basic metabolic panel (05/02/2025 6:48 AM EST) Sodium 143 133 - 145 mmol/L LAB CHEMISTRY METHOD 05/02/2025 7:[address] [facility] Potassium 4.7 3.5 - 5.5 mmol/L LAB CHEMISTRY METHOD 05/02/2025 7:[address] [facility] Chloride 108 96 - 110 mmol/L LAB CHEMISTRY METHOD 05/02/2025 7:[address] [facility] CO2 31 21 - 32 mmol/L LAB CHEMISTRY METHOD 05/02/2025 7:[address] [facility] Anion Gap 4 3 - 11 LAB CHEMISTRY METHOD 05/02/2025 7:[address] [facility] Glucose 94 70 - 100 mg/dL LAB CHEMISTRY METHOD 05/02/2025 7:[address] [facility] BUN 22 5 - 25 mg/dL LAB CHEMISTRY METHOD 05/02/2025 7:[address] [facility] Creatinine 0.60 0.50 - 1.10 mg/dL LAB CHEMISTRY METHOD 05/02/2025 7:[address] [facility] eGFR 90 >=60 mL/min/1. 73m2 LAB CHEMISTRY METHOD 05/02/2025 7:[address] [facility] Comment:Calculation based on the Chronic Kidney Disease Epidemiology Collaboration (CKD-EPI) equation refit without adjustment for race. BUN/Creatinine Ratio 36.7 LAB CHEMISTRY METHOD 05/02/2025 7:[address] [facility] Calcium 8.9 8.5 - 10.5 mg/dL LAB CHEMISTRY METHOD 05/02/2025 7:[address] [facility] Blood Venous blood specimen / Unknown Venipuncture / Unknown 05/02/2025 6:48 AM EST 05/02/2025 6:53 AM EST us Miguelangel Winn MD LAB BLOOD ORDERABLES Final Re sult [facility] [address] [place] [address], * (ABNORMAL) CBC auto differential (05/01/2025 4:31 PM EST) [facility] WBC 7.5 4.8 - 10.8 K/mcL LAB HEMETOLOGY METHOD 05/01/2025 4:[address] [facility] RBC 2.80(L) 3.80 - 4.80 M/mcL LAB HEMETOLOGY METHOD 05/01/2025 4:[address] [facility] Hemoglobin 8.7(L) 11.5 - 16.0 g/dL LAB HEMETOLOGY METHOD 05/01/2025 4:[address] [facility] Hematocrit 27.7(L) 35.0 - 47.0 % LAB HEMETOLOGY METHOD 05/01/2025 4:[address] [facility] MCV 98.9(H) 79.0 - 98.0 FL LAB HEMETOLOGY METHOD 05/01/2025 4:[address] [facility] MCH 31.1 27.0 - 32.0 pcg LAB HEMETOLOGY METHOD 05/01/2025 4:[address] [facility] MCHC 31.4(L) 32.0 - 37.0 g/dL LAB HEMETOLOGY METHOD 05/01/2025 4:[address] [facility] RDW 16.9(H) 11.0 - 15.0 % LAB HEMETOLOGY METHOD 05/01/2025 4:[address] [facility] Platelets 273 130 - 400 K/mcL LAB HEMETOLOGY METHOD 05/01/2025 4:[address] [facility] MPV 8.9 7.0 - 11.0 FL LAB HEMETOLOGY METHOD 05/01/2025 4:[address] [facility] NRBC 0.0 <1.0 % LAB HEMETOLOGY METHOD 05/01/2025 4:[address] [facility] NRBC Absolute 0.00 <0.10 K/mcL LAB HEMETOLOGY METHOD 05/01/2025 4:[address] [facility] Neutrophils Relative 76.6 % LAB HEMETOLOGY METHOD 05/01/2025 4:[address] [facility] Lymphocytes Relative 9.4 % LAB HEMETOLOGY METHOD 05/01/2025 4:[address] [facility] Monocytes Relative 10.7 % LAB HEMETOLOGY METHOD 05/01/2025 4:[address] [facility] Eosinophils Relative 2.5 % LAB HEMETOLOGY METHOD 05/01/2025 4:[address] [facility] Basophils Relative 0.4 % LAB HEMETOLOGY METHOD 05/01/2025 4:[address] [facility] Immature Granulocytes Relative 0.4 % LAB HEMETOLOGY METHOD 05/01/2025 4:[address] [facility] Neutrophils Absolute 5.77 1.50 - 7.00 K/mcL LAB HEMETOLOGY METHOD 05/01/2025 4:[address] [facility] Lymphocytes Absolute 0.71(L) 1.00 - 5.00 K/mcL LAB HEMETOLOGY METHOD 05/01/2025 4:[address] [facility] Monocytes Absolute 0.81 0.20 - 1.00 K/mcL LAB HEMETOLOGY METHOD 05/01/2025 4:[address] [facility] Eosinophils Absolute 0.19 0.00 - 0.50 K/mcL LAB HEMETOLOGY METHOD 05/01/2025 4:[address] [facility] Basophils Absolute 0.03 0.00 - 0.20 K/mcL LAB HEMETOLOGY METHOD 05/01/2025 4:[address] [facility] Immature Granulocytes Absolute 0.03 0.00 - 0.03 K/mcL LAB HEMETOLOGY METHOD 05/01/2025 4:47 PM EST [facility] Blood Venous blood specimen / Unknown Venipuncture / Unknown 05/01/2025 4:31 PM EST 05/01/2025 4:43 PM EST us Nik Vogt MD LAB BLOOD ORDERABLES Final Resul t Performing Organization Address [facility]/ZIP Co de Phone Number [facility] [address] [place] [address], [place] [phone] * Type and screen (05/01/2025 4:31 PM EST) ABO Group O 05/01/2025 5:40 PM EST [facility] Rh Type Positive 05/01/2025 5:40 PM EST [facility] Antibody Screen Negative 05/01/2025 5:40 PM EST [facility] Blood Venous blood specimen / Unknown Venipuncture / Unknown 05/01/2025 4:31 PM EST 05/01/2025 4:43 PM EST us Nik Vogt MD LAB BLOOD BANK TEST ORDERABLES F inal Result Performing Organization Address [facility]/ZIP Co de Phone Number [facility] [address] [place] [address], [place] [phone] * (ABNORMAL) Comprehensive metabolic panel (05/01/2025 4:31 PM EST) Sodium 141 133 - 145 mmol/L LAB CHEMISTRY METHOD 05/01/2025 5:10 PM EST [facility] Potassium 3.9 3.5 - 5.5 mmol/L LAB CHEMISTRY METHOD 05/01/2025 5:10 PM EST [facility] Chloride 107 96 - 110 mmol/L LAB CHEMISTRY METHOD 05/01/2025 5:10 PM EST [facility] CO2 30 21 - 32 mmol/L LAB CHEMISTRY METHOD 05/01/2025 5:[address] [facility] Anion Gap 4 3 - 11 LAB CHEMISTRY METHOD 05/01/2025 5:[address] [facility] Glucose 118(H) 70 - 100 mg/dL LAB CHEMISTRY METHOD 05/01/2025 5:[address] [facility] BUN 24 5 - 25 mg/dL LAB CHEMISTRY METHOD 05/01/2025 5:[address] [facility] Creatinine 0.67 0.50 - 1.10 mg/dL LAB CHEMISTRY METHOD 05/01/2025 5:[address] [facility] eGFR 87 >=60 mL/min/1. 73m2 LAB CHEMISTRY METHOD 05/01/2025 5:[address] [facility] Comment:Calculation based on the Chronic Kidney Disease Epidemiology Collaboration (CKD-EPI) equation refit without adjustment for race. BUN/Creatinine Ratio 35.8 LAB CHEMISTRY METHOD 05/01/2025 5:[address] [facility] Calcium 8.7 8.5 - 10.5 mg/dL LAB CHEMISTRY METHOD 05/01/2025 5:[address] [facility] AST (SGOT) 19 10 - 42 unit/L LAB CHEMISTRY METHOD 05/01/2025 5:[address] [facility] ALT (SGPT) 26 10 - 60 unit/L LAB CHEMISTRY METHOD 05/01/2025 5:[address] [facility] Alkaline Phosphatase 109 42 - 121 unit/L LAB CHEMISTRY METHOD 05/01/2025 5:[address] [facility] Total Protein 5.5(L) 6.0 - 8.0 g/dL LAB CHEMISTRY METHOD 05/01/2025 5:[address] [facility] Albumin 2.7(L) 3.2 - 5.0 g/dL LAB CHEMISTRY METHOD 05/01/2025 5:[address] [facility] Total Bilirubin 0.3 0.0 - 1.4 mg/dL LAB CHEMISTRY METHOD 05/01/2025 5:10 PM EST [facility] Blood Venous blood specimen / Unknown Venipuncture / Unknown 05/01/2025 4:31 PM EST 05/01/2025 4:43 PM EST us Nik Vogt MD LAB BLOOD ORDERABLES Final Resul t [facility] [address] [place] [address], [place] [phone] * XR Knee 1-2 Views Right (05/01/2025 3:46 PM EST) Anatomical Region Laterality Modality Lower Extremities, Knee Right Radiogra phic Imaging 05/01/2025 4:39 PM EST Impressions 05/01/2025 4:39 PM EST FINDINGS/IMPRESSION: There is a angulated and mildly displaced distal femur fracture. Degenerative changes of the knee. -------- FINAL REPORT -------- Dictated By: Henry Forrester Dictated Date: 05/01/2025 16:39 ET Assigned Physician: Henry Forrester Reviewed and Electronically Signed By: Henry Forrester Signed Date: 05/01/2025 16:39 ET Workstation ID: [id number] Transcribed By: Self Edit Transcribed Date: 05/01/2025 16:39 ET Narrative 05/01/2025 4:39 PM EST XR KNEE 1-2 VIEWS RIGHT INDICATION: fall, pain, deformity, concern for distal femur fx TECHNIQUE: XR KNEE 1-2 VIEWS RIGHT COMPARISON: None Procedure Note Henry Forrester MD - 05/01/2025 XR KNEE 1-2 VIEWS RIGHT INDICATION: fall, pain, deformity, concern for distal femur fx TECHNIQUE: XR KNEE 1-2 VIEWS RIGHT COMPARISON: None IMPRESSION: FINDINGS/IMPRESSION: There is a angulated and mildly displaced distalfemur fracture. Degenerative changes of the knee. -------- FINAL REPORT -------- Dictated By: Henry Forrester Dictated Date: 05/01/2025 16:39 ET Assigned Physician: Henry Forrester Reviewed and Electronically Signed By: Henry Forrester Signed Date: 05/01/2025 16:39 ET Workstation ID: [id number] Transcribed By: Self Edit Transcribed Date: 05/01/2025 16:39 ET Nik Vogt MD IMG XR PROCEDURES Final Result * XR Femur 2+ Views Right (05/01/2025 3:46 PM EST) Anatomical Region Laterality Modality Lower Extremities, Femur Right Radiogr aphic Imaging 05/02/2025 10:2 6 AM EST Impressions 05/02/2025 10:26 AM EST FINDINGS/IMPRESSION: Displaced distal femur fracture. -------- FINAL REPORT -------- Dictated By: Henry Forrester Dictated Date: 05/02/2025 10:26 ET Assigned Physician: Henry Forrester Reviewed and Electronically Signed By: Henry Forrester Signed Date: 05/02/2025 10:26 ET Workstation ID: [id number] Transcribed By: Self Edit Transcribed Date: 05/02/2025 10:26 ET Narrative 05/02/2025 10:26 AM EST XR FEMUR 2+ VIEWS RIGHT INDICATION: ground fall, r/o fracture TECHNIQUE: XR FEMUR 2+ VIEWS RIGHT COMPARISON: None Procedure Note Henry Forrester MD - 05/02/2025 XR FEMUR 2+ VIEWS RIGHT INDICATION: ground fall, r/o fracture TECHNIQUE: XR FEMUR 2+ VIEWS RIGHT COMPARISON: None IMPRESSION: FINDINGS/IMPRESSION: Displaced distal femur fracture. -------- FINAL REPORT -------- Dictated By: Henry Forrester Dictated Date: 05/02/2025 10:26 ET Assigned Physician: Henry Forrester Reviewed and Electronically Signed By: Henry Forrester Signed Date: 05/02/2025 10:26 ET Workstation ID: [id number] Transcribed By: Self Edit Transcribed Date: 05/02/2025 10:26 ET Nik Vogt MD IMG XR PROCEDURES Final Result * XR Hip 2-3 Views Right (05/01/2025 3:46 PM EST) Anatomical Region Laterality Modality Lower Extremities, Hip Right Radiograp hic Imaging 05/01/2025 4:37 PM EST Impressions 05/01/2025 4:38 PM EST FINDINGS/IMPRESSION: Recent postsurgical changes of the right femur unchanged from prior examination and in anatomic alignment. Chronic pelvic fracture deformities. Degenerative changes of the spine. -------- FINAL REPORT -------- Dictated By: Henry Forrester Dictated Date: 05/01/2025 16:37 ET Assigned Physician: Henry Forrester Reviewed and Electronically Signed By: Henry Forrester Signed Date: 05/01/2025 16:38 ET Workstation ID: [id number] Transcribed By: Self Edit Transcribed Date: 05/01/2025 16:37 ET Narrative 05/01/2025 4:38 PM EST XR HIP 2-3 VIEWS RIGHT INDICATION: pain TECHNIQUE: XR HIP 2-3 VIEWS RIGHT COMPARISON: None Procedure Note Henry Forrester MD - 05/01/2025 XR HIP 2-3 VIEWS RIGHT INDICATION: pain TECHNIQUE: XR HIP 2-3 VIEWS RIGHT COMPARISON: None IMPRESSION: FINDINGS/IMPRESSION: Recent postsurgical changes of the right femurunchanged from prior examination and in anatomic alignment. Chronicpelvic fracture deformities. Degenerative changes of the spine. -------- FINAL REPORT -------- Dictated By: Henry Forrester Dictated Date: 05/01/2025 16:37 ET Assigned Physician: Henry Forrester Reviewed and Electronically Signed By: Henry Forrester Signed Date: 05/01/2025 16:38 ET Workstation ID: [id number] Transcribed By: Self Edit Transcribed Date: 05/01/2025 16:37 ET Nik Vogt MD IMG XR PROCEDURES Final Result documented in this encounter Visit Diagnoses Diagnosis Periprosthetic fracture around prosthetic joint, initial encounter- Primary Other closed fracture of distal end of right femur, initial encounter (CMS/HCC V24, CMS/HCC V28) Hematoma Contusion of unspecified site Other closed fracture of distal end of right femur, initial encounter (CMS/HCC V24, CMS/HCC V28) Hematoma of left thigh Open wound of right lower extremity Open wound of right lower extremity, sequela Infection associated with internal fixation device of right femur, subsequent encounter documented in this encounter Admitting Diagnoses Diagnosis Periprosthetic fracture around prosthetic joint, initial encounter Other closed fracture of distal end of right femur, initial encounter ([facility] V24, [facility] V28) Hematoma of left thigh Open wound of right lower extremity documented in this encounter Administered Medications Active Administered Medications - up to 3 most recent administrations Medication Order MAR Action Action Date Dose Rate Site acetaminophen (TYLENOL) tablet 650 mg 650 mg, oral, Every 6 hours PRN, mild pain, fever - temperature GREATER than 38 C (100.4 F), Starting on Sun05/01/25 at 1808 Given 05/14/2025 9:17 AM EST 650 mg Given 05/06/2025 12:13 AM EST 650 mg atorvastatin (LIPITOR) tablet 20 mg 20 mg, oral, Nightly, First dose on Sun05/01/25 at 2100 Given 05/18/2025 10:24 PM EST 20 mg Given 05/17/2025 10:10 PM EST 20 mg Given 05/16/2025 10:10 PM EST 20 mg cholecalciferol (VITAMIN D-3) capsule 50,000 Units 50,000 Units, oral, Weekly, First dose on 05/03/25 at 0900 Given 05/17/2025 9:30 AM EST 50,000 Units Given 05/10/2025 8:32 AM EST 50,000 Units Given 05/03/2025 9:30 AM EST 50,000 Units cholestyramine (QUESTRAN) 4 gram packet 4 g 4 g, oral, 2 times daily with meals, First dose on 05/02/25 at 0800, If possible, give other medications 1 hour before or 4 hours after cholestyramine. Given 05/19/2025 8:36 AM EST 4 g Given 05/18/2025 4:25 PM EST 4 g Given 05/17/2025 4:16 PM EST 4 g dorzolamide (TRUSOPT) 2 % ophthalmic solution 1 drop 1 drop, Both Eyes, 2 times daily, First dose (after last modification) on 05/02/25 at 0900 Given 05/19/2025 8:37 AM EST 1 drop Given 05/18/2025 10:24 PM EST 1 drop Given 05/18/2025 8:43 AM EST 1 drop enoxaparin (LOVENOX) injection 40 mg 40 mg, subcutaneous, Daily, First dose on Sun05/19/25 at 0900, Indication: VTE/PE Prophylaxis Given 05/19/2025 8:36 AM EST 40 mg Right Lower Abdomen latanoprost (XALATAN) 0.005 % ophthalmic solution 1 drop 1 drop, Both Eyes, Nightly, First dose on Sun05/01/25 at 2100 Given 05/18/2025 10:24 PM EST 1 drop Given 05/17/2025 10:11 PM EST 1 drop Given 05/16/2025 10:11 PM EST 1 drop meropenem (MERREM) 1 g in sodium chloride 0.9 % 100 mL IVPB 1 g, intravenous, at 200 mL/hr, Administer over 30 Minutes, Every 8 hours, First dose (after last modification) on Sun05/18/25 at 1600, For 117 doses, Phase II/On Unit, Renal dosing protocol for ClCr = 37.5 ml/min, Indication: Bone/Joint, Authorizing ID: Infectious Disease Physician/Fellow New Bag 05/19/2025 8:36 AM EST 1 g 200 mL/hr New Bag 05/19/2025 12:01 AM EST 1 g 200 mL/hr New Bag 05/18/2025 4:24 PM EST 1 g 200 mL/hr metoprolol succinate (TOPROL-XL) 24 Hour tablet 25 mg 25 mg, oral, Daily, First dose on Sun05/02/25 at 0900, Hold for sbp <100, hr <60 Do not crush or chew. Given 05/19/2025 8:36 AM EST 25 mg Given 05/18/2025 8:42 AM EST 25 mg Given 05/17/2025 9:24 AM EST 25 mg naloxone (NARCAN) injection 0.04 mg 0.04 mg, intravenous, As needed, opioid reversal, IV Push every 1 min for 10 doses, Starting on Sun05/01/25 at 1808, For 10 doses, To Dilute: -Use 0.4 mg/mL vial , withdraw 1 mL and add 9 mL NS -FOLLOWING DILUTION, dose of 0.04 mg = 1 mL For PARTIAL Opioid Reversal: -For respiratory rate LESS than 10 or [place]ero Opioid-induced Sedation Scale (POSS) equal to 4 -May be repeated at 1 minute intervals to restore adequate respirations -Administer up to 10 doses (0.4 mg) ondansetron (PF) (ZOFRAN) injection 4 mg 4 mg, intravenous, Every 6 hours PRN, vomiting, nausea, Starting on Sun05/01/25 at 1808, -ONLY give IV if patient is unable to take orally. -If inadequate response within 30 minutes, proceed to next-line agent or contact provider if no further options ordered. Given 05/05/2025 12:57 PM EST 4 m g oxyCODONE (ROXICODONE) immediate release tablet 5 mg 5 mg, oral, Every 4 hours PRN, severe pain, Starting on Sun05/05/25 at 1342 Given 05/18/2025 10:24 PM EST 5 mg Given 05/17/2025 10:10 PM EST 5 mg Given 05/16/2025 10:10 PM EST 5 mg PARoxetine (PAXIL) tablet 20 mg 20 mg, oral, Every morning, First dose on 05/02/25 at 0700, Hazardous Medication Intact: - Single pair of ASTM standard [id number] certified gloves - Eye/face protection if vomit or potential to spit up - Do NOT split, crush, or open dosage units Given 05/19/2025 8:36 AM EST 20 mg Given 05/18/2025 8:42 AM EST 20 mg Given 05/17/2025 8:58 AM EST 20 mg polyethylene glycol (MIRALAX) packet 17 g 17 g, oral, Nightly, First dose on Sun05/01/25 at 2100, Bowel Regimen - for prevention of constipation Given 05/13/2025 8:52 PM EST 17 g Given 05/07/2025 9:07 PM EST 17 g Given 05/06/2025 9:53 PM EST 17 g sodium chloride 0.9 % flush 10 mL 10 mL, intravenous, 2 times daily, First dose on Sun05/01/25 at 2100 Given 05/19/2025 8:53 AM EST 10 mL Given 05/18/2025 10:24 PM EST 10 mL Given 05/18/2025 8:43 AM EST 10 mL sodium chloride 0.9 % flush 10 mL 10 mL, intravenous, As needed, line care, Starting on Sun05/01/25 at 1808 sodium chloride 0.9 % infusion 42 mL/hr, intravenous, As needed, pre-, and post- transfusion as needed for line flush purposes, in conjunction with blood product transfusion only, Starting on 05/06/25 at 0832, -Use only the amount required from a 250 mL bag of NS to adequately flush -A new NS bag is required with each new unit of blood administered New Bag 05/06/2025 12:00 PM EST 42 mL/hr 42 mL/hr sodium chloride 0.9 % infusion 42 mL/hr, intravenous, As needed, pre-, and post- transfusion as needed for line flush purposes, in conjunction with blood product transfusion only, Starting on Marguerite 05/07/25 at 0910, -Use only the amount required from a 250 mL bag of NS to adequately flush -A new NS bag is required with each new unit of blood administered sodium chloride 0.9 % infusion 42 mL/hr, intravenous, As needed, pre-, and post- transfusion as needed for line flush purposes, in conjunction with blood product transfusion only, Starting on 05/09/25 at 1327, -Use only the amount required from a 250 mL bag of NS to adequately flush -A new NS bag is required with each new unit of blood administered Inactive Administered Medications - up to 3 most recent administrations Medication Order MAR Action Action Date Dose Rate Site acetaminophen (TYLENOL) tablet 1,000 mg 1,000 mg, oral, Every 8 hours, First dose on Sun05/04/25 at 1515, Preprocedure Given 05/05/2025 6:15 AM EST 1,000 mg Given 05/04/2025 11:09 PM EST 1,000 mg Given 05/04/2025 4:26 PM EST 1,000 mg ceFAZolin (ANCEF) 2 g in sterile water 20 mL IV syringe 2 g, intravenous, Administer over 3 Minutes, Every 6 hours, First dose on Sun05/05/25 at 1800, For 3 doses, Recovery & On Unit, Indication: Prophylaxis-Surgical Given 05/06/2025 6:37 AM EST 2 g Given 05/06/2025 12:14 AM EST 2 g Given 05/05/2025 6:14 PM EST 2 g ceFAZolin (ANCEF) 2 g in sterile water 20 mL IV syringe 2 g, intravenous, Administer over 3 Minutes, Every 8 hours, First dose on Sun05/13/25 at 1800, For 5 days, Can start 4 hours after pre-op dose if patient being discharged on same day of surgery, Indication: Skin/Soft Tissue New Bag 05/15/2025 11:48 AM EST 2 g Given 05/15/2025 2:15 AM EST 2 g Given 05/14/2025 5:24 PM EST 2 g dorzolamide (TRUSOPT) 2 % ophthalmic solution 1 drop 1 drop, Left Eye, 2 times daily, First dose on Sun05/01/25 at 2100 Given 05/01/2025 9:54 PM EST 1 drop enoxaparin (LOVENOX) injection 40 mg 40 mg, subcutaneous, Daily, First dose on Sun05/06/25 at 0900, Recovery & On Unit, Indication: VTE/PE Prophylaxis Given 05/06/2025 8:08 AM EST 40 mg Right Upper Abdomen enoxaparin (LOVENOX) injection 40 mg 40 mg, subcutaneous, Daily, First dose (after last modification) on Sun05/08/25 at 1330, Indication: VTE/PE Prophylaxis Given 05/12/2025 9:34 AM EST 40 mg Left Upper Abdomen Given 05/11/2025 8:42 AM EST 40 mg L eft Lower Abdomen Given 05/10/2025 8:21 AM EST 40 mg Le ft Lower Abdomen enoxaparin (LOVENOX) injection 40 mg 40 mg, subcutaneous, Daily, First dose (after last modification) on Marguerite 05/14/25 at 0900, Recovery & On Unit, Indication: VTE/PE Prophylaxis Given 05/14/2025 9:18 AM EST 40 mg Left Upper Abdomen enoxaparin (LOVENOX) injection 40 mg 40 mg, subcutaneous, Daily, First dose on 05/16/25 at 0900, Recovery & On Unit, Indication: VTE/PE Prophylaxis Given 05/17/2025 9:24 AM EST 40 mg Left Lower Abdomen Given 05/16/2025 8:33 AM EST 40 mg Ri ght Lower Abdomen ferric gluconate (FERRLECIT) 125 mg in sodium chloride 0.9 % 110 mL IVPB 125 mg, intravenous, at 110 mL/hr, Administer over 60 Minutes, Daily, First dose on 05/02/25 at 1730, For 4 days New Bag 05/05/2025 9:40 AM EST 125 mg 110 mL/hr New Bag 05/04/2025 8:59 AM EST 125 mg 110 mL/hr New Bag 05/03/2025 9:30 AM EST 125 mg 110 mL/hr HYDROmorphone (DILAUDID) 0.5 mg/0.5 mL injection - ADS Override Pull Starting on Sun05/05/25 at 1342, For 1 dose, Created by cabinet override HYDROmorphone (DILAUDID) injection 0.5 mg 0.5 mg, intravenous, Every 5 min PRN, severe pain, Pain, Starting on Sun05/05/25 at 1340, For 4 doses, Recovery (only) Given 05/05/2025 2:09 PM EST 0.5 mg Given 05/05/2025 1:52 PM EST 0.5 mg Given 05/05/2025 1:43 PM EST 0.5 mg lactated Ringer's infusion 1,000 mL 1,000 mL, intravenous, at 100 mL/hr, Continuous, Starting on Sun05/05/25 at 1415, For 10 hours, Recovery & On Unit, Can DC previous fluid order from pre-op New Bag 05/05/2025 9:44 PM EST 1,000 mL 100 mL/hr Restarted 05/05/2025 2:45 PM EST 100 mL/hr lactated Ringer's infusion 1,000 mL 1,000 mL, intravenous, at 100 mL/hr, Continuous, Starting on Sun05/13/25 at 1115, For 10 hours, Recovery & On Unit, Can DC previous fluid order from pre-op New Bag 05/13/2025 12:39 PM EST 1,000 mL 100 mL/hr Right Forearm lactated Ringer's infusion 100 mL/hr, intravenous, Continuous, Starting on Sun05/04/25 at 1530, Preprocedure Continued by Anesthesia 05/05/2025 11:27 AM EST 100 mL/hr New Bag 05/05/2025 3:32 AM EST 100 mL/hr 100 mL/hr Bag 05/04/2025 4:31 PM EST 100 mL/hr 100 mL/hr magnesium sulfate 2 gram/50 mL (4 %) IVPB 2 g 2 g, intravenous, at 25 mL/hr, Administer over 2 Hours, Once, On 05/02/25 at 1545, For 1 dose New Bag 05/02/2025 3:34 PM EST 2 g 25 mL/hr magnesium sulfate 2 gram/50 mL (4 %) IVPB 2 g 2 g, intravenous, at 25 mL/hr, Administer over 2 Hours, Once, On Sun05/17/25 at 1345, For 1 dose New 05/17/2025 1:34 PM EST 2 g 25 mL/hr meropenem (MERREM) 1 g in sodium chloride 0.9 % 100 mL IVPB 1 g, intravenous, at 200 mL/hr, Administer over 30 Minutes, Every 12 hours, First dose (after last modification) on Sun05/15/25 at 1600, For 42 days, Renal dosing protocol for ClCr = 37.5 ml/min, Indication: Bone/Joint, Authorizing ID: Infectious Disease Physician/Fellow 05/18/2025 3:31 AM EST 1 g 200 mL /hr 05/17/2025 4:16 PM EST 1 g 200 mL/hr 05/17/2025 3:17 AM EST 1 g 200 mL/hr morphine injection 4 mg 4 mg, intravenous, Once, On Sun05/01/25 at 1702, For 1 dose Given 05/01/2025 5:05 PM EST 4 mg oxyCODONE (ROXICODONE) immediate release tablet 5 mg 5 mg, oral, Every 4 hours PRN, moderate pain or when therapies for mild pain were not effective, Starting on Sun05/01/25 at 1808 Given 05/04/2025 4:29 PM EST 5 mg Given 05/04/2025 7:06 AM EST 5 mg Given 05/03/2025 9:53 PM EST 5 mg thiamine (VITAMIN B-1) injection 200 mg 200 mg, intravenous, Every 24 hours, First dose on Sun05/02/25 at 1545, For 3 days, If ordered IV, push slowly over 2 minutes. Given 05/04/2025 4:30 PM EST 200 mg Given 05/03/2025 3:39 PM EST 200 mg Given 05/02/2025 3:31 PM EST 200 mg documented in this encounter Historical Medications * This list may reflect changes made after this encounter. dorzolamide (TRUSOPT) 2 % ophthalmic solution Administer 1 drop into the left eye 2 (two) times a day. added in this encounter Active and Recently Administered Medications Times are shown in EST. Scheduled Medication Order 05/17/2025 05/18/2025 05/19/2025 atorvastatin (LIPITOR) tablet 20 mg 20 mg, oral, Nightly, First dose on Sun05/01/25 at 2100 2210 (Given - Provider: Willian Mak, RN) 1219 ([facility] Hold - Provider: Automatic Transfer Provider - Reason: Patient not available)1528 ([facility] Unhold - Provider: Automatic Transfer Provider)2224 (Given - Provider: Willian Mak, RN) 2100 (Due) cholecalciferol (VITAMIN D-3) capsule 50,000 Units 50,000 Units, oral, Weekly, First dose on Sun05/03/25 at 0900 0930 (Given - Provider: Kim Norris RN) 121 ([facility] Hold - Provider: Automatic Transfer Provider - Reason: Patient not available)1528 ([facility] Unhold - Provider: Automatic Transfer Provider) cholestyramine (QUESTRAN) 4 gram packet 4 g 4 g, oral, 2 times daily with meals, First dose on 05/02/25 at 0800, If possible, give other medications 1 hour before or 4 hours after cholestyramine. 0925 (Not Given - Provider: Kim Norris RN - Reason: Patient/Resident/Agen t refused - education provided )1616 (Given - Provider: Kim Norris RN) 0905 (Not Given - Provider: Kim Norris RN - Reason: NPO)1219 ([facility] Hold - Provider: Automatic Transfer Provider - Reason: Patient not available)1528 ([facility] Unhold - Provider: Automatic Transfer Provider)1625 (Given - Provider: Kim Norris RN) 0836 (Given - Provider: Charlotte Briscoe RN)1700 (Due) dorzolamide (TRUSOPT) 2 % ophthalmic solution 1 drop 1 drop, Both Eyes, 2 times daily, First dose (after last modification) on 05/02/25 at 0900 0924 (Given - Provider: Kim Norris, FELIPE)2211 (Given - Provider: Willian Mak RN) 0843 (Given - Provider: Kim Norris RN)1219 ([facility] Hold - Provider: Automatic Transfer Provider - Reason: Patient not available)1528 ([facility] Unhold - Provider: Automatic Transfer Provider)2224 (Given - Provider: Willian Mak RN) 0837 (Given - Provider: Charlotte Briscoe RN)2100 (Due) enoxaparin (LOVENOX) injection 40 mg (CANCELED) 40 mg, subcutaneous, Daily, First dose on Sun05/16/25 at 0900, Recovery & On Unit, Indication: VTE/PE Prophylaxis 0924 (Given - Provider: Kim Norris RN) 0747 (Held by provider - Provider: BURAK Urbina - Reason: Other - Comment: Please hold for surgery on 05/18)0900 (Dose Auto Held - Provider: BURAK Urbina)1408 (Unheld by provider - Provider: BURAK Urbina) enoxaparin (LOVENOX) injection 40 mg 40 mg, subcutaneous, Daily, First dose on Tu05/19/25 at 0900, Indication: VTE/PE Prophylaxis 0836 (Given - Provider: Charlotte Briscoe RN) latanoprost (XALATAN) 0.005 % ophthalmic solution 1 drop 1 drop, Both Eyes, Nightly, First dose on Sun05/01/25 at 2100 2211 (Given - Provider: Willian Mak RN) 1219 ([facility] Hold - Provider: Automatic Transfer Provider - Reason: Patient not available)1528 ([facility] Unhold - Provider: Automatic Transfer Provider)2224 (Given - Provider: Willian Mak RN) 2100 (Due) magnesium sulfate 2 gram/50 mL (4 %) IVPB 2 g (COMPLETED) 2 g, intravenous, at 25 mL/hr, Administer over 2 Hours, Once, On Sun05/17/25 at 1345, For 1 dose 1334 (New Bag - Provider: Kim Norris, RN)1544 (Stopped - Provider: Kim Norris RN) meropenem (MERREM) 1 g in sodium chloride 0.9 % 100 mL IVPB (CANCELED) 1 g, intravenous, at 200 mL/hr, Administer over 30 Minutes, Every 12 hours, First dose (after last modification) on Sun05/15/25 at 1600, For 42 days, Renal dosing protocol for ClCr = 37.5 ml/min, Indication: Bone/Joint, Authorizing ID: Infectious Disease Physician/Fellow [id number] (New Bag - Provider: Willian Mak RN)0347 (Stopped - Provider: Willian Mak RN)1616 (New Bag - Provider: Kim Norris RN)1659 (Stopped - Provider: Kim Norris RN) 0331 (New Bag - Provider: Willian Mak RN)0401 (Stopped - Provider: Willian Mak RN)1219 ([facility] Hold - Provider: Automatic Transfer Provider - Reason: Patient not available)1234 ([facility] Unhold - Provider: Koki Rasmussen MD) meropenem (MERREM) 1 g in sodium chloride 0.9 % 100 mL IVPB 1 g, intravenous, at 200 mL/hr, Administer over 30 Minutes, Every 8 hours, First dose (after last modification) on 05/18/25 at 1600, For 117 doses, Phase II/On Unit, Renal dosing protocol for ClCr = 37.5 ml/min, Indication: Bone/Joint, Authorizing ID: Infectious Disease Physician/Fellow [id number] (New Bag - Provider: Kim Norris RN)1702 (Stopped - Provider: Kim Norris RN) 0001 (New Bag - Provider: Willian Mak RN)0031 (Stopped - Provider: Willian Mak RN)0836 (New Bag - Provider: Charlotte Briscoe RN)0932 (Stopped - Provider: Charlotte Briscoe RN)1600 (Due) metoprolol succinate (TOPROL-XL) 24 Hour tablet 25 mg 25 mg, oral, Daily, First dose on 05/02/25 at 0900, Hold for sbp <100, hr <60 Do not crush or chew. 0924 (Given - Provider: Kim Norris RN) 0842 (Given - Provider: Kim Norris RN)1219 ([facility] Hold - Provider: Automatic Transfer Provider - Reason: Patient not available)1528 ([facility] Unhold - Provider: Automatic Transfer Provider) 0836 (Given - Provider: Charlotte Briscoe RN) PARoxetine (PAXIL) tablet 20 mg 20 mg, oral, Every morning, First dose on 05/02/25 at 0700, Hazardous Medication Intact: - Single pair of ASTM standard D6978 certified gloves - Eye/face protection if vomit or potential to spit up - Do NOT split, crush, or open dosage units 0858 (Given - Provider: Kim Norris RN - Comment: [facility] for 8 am) 0842 (Given - Provider: Kim Norris RN - Comment: [facility] for 8)1219 ([facility] Hold - Provider: Automatic Transfer Provider - Reason: Patient not available)1528 ([facility] Unhold - Provider: Automatic Transfer Provider) 0836 (Given - Provider: Charlotte Briscoe, FELIPE) polyethylene glycol (MIRALAX) packet 17 g 17 g, oral, Nightly, First dose on Sun05/01/25 at 2100, Bowel Regimen - for prevention of constipation 2216 (Not Given - Provider: Willian Mak RN - Reason: Patient/Resident/Agen t refused - education provided ) 1219 ([facility] Hold - Provider: Automatic Transfer Provider - Reason: Patient not available)1528 ([facility] Unhold - Provider: Automatic Transfer Provider)2246 (Not Given - Provider: Willian Mak RN - Reason: Patient/Resident/Agen t refused - education provided ) 2100 (Due) sodium chloride 0.9 % flush 10 mL(Linked Group 1) 10 mL, intravenous, 2 times daily, First dose on Sun05/01/25 at 2100 0859 (Given - Provider: Kim Norris, FELIPE)2215 (Given - Provider: Willian Mak RN) 0843 (Given - Provider: Kim Norris RN)1219 ([facility] Hold - Provider: Automatic Transfer Provider - Reason: Patient not available)1528 ([facility] Unhold - Provider: Automatic Transfer Provider)2224 (Given - Provider: Willian Mak RN) 0853 (Given - Provider: Charlotte Briscoe, FELIPE)2100 (Due) PRN Medication Order 05/17/2025 05/18/2025 05/19/2025 acetaminophen (TYLENOL) tablet 650 mg 650 mg, oral, Every 6 hours PRN, mild pain, fever - temperature GREATER than 38 C (100.4 F), Starting on Sun05/01/25 at 1808 1219 ([facility] Hold - Provider: Automatic Transfer Provider - Reason: Patient not available)1528 ([facility] Unhold - Provider: Automatic Transfer Provider) HYDROmorphone (DILAUDID) injection 0.5 mg 0.5 mg, intravenous, Every 3 hours PRN, severe pain, breakthrough severe pain, Starting on Sun05/05/25 at 1342 1219 ([facility] Hold - Provider: Automatic Transfer Provider - Reason: Patient not available)1528 ([facility] Unhold - Provider: Automatic Transfer Provider) naloxone (NARCAN) injection 0.04 mg 0.04 mg, intravenous, As needed, opioid reversal, IV Push every 1 min for 10 doses, Starting on Sun05/01/25 at 1808, For 10 doses, To Dilute: -Use 0.4 mg/mL vial , withdraw 1 mL and add 9 mL NS -FOLLOWING DILUTION, dose of 0.04 mg = 1 mL For PARTIAL Opioid Reversal: -For respiratory rate LESS than 10 or [place] Opioid-induced Sedation Scale (POSS) equal to 4 -May be repeated at 1 minute intervals to restore adequate respirations -Administer up to 10 doses (0.4 mg) 1219 ([facility] Hold - Provider: Automatic Transfer Provider - Reason: Patient not available)1528 ([facility] Unhold - Provider: Automatic Transfer Provider) ondansetron (PF) (ZOFRAN) injection 4 mg 4 mg, intravenous, Every 6 hours PRN, vomiting, nausea, Starting on Sun05/01/25 at 1808, -ONLY give IV if patient is unable to take orally. -If inadequate response within 30 minutes, proceed to next-line agent or contact provider if no further options ordered. 1219 ([facility] Hold - Provider: Automatic Transfer Provider - Reason: Patient not available)1528 ([facility] Unhold - Provider: Automatic Transfer Provider) oxyCODONE (ROXICODONE) immediate release tablet 2.5 mg 2.5 mg, oral, Every 4 hours PRN, moderate pain, Starting on Sun05/05/25 at 1344 1219 ([facility] Hold - Provider: Automatic Transfer Provider - Reason: Patient not available)1528 ([facility] Unhold - Provider: Automatic Transfer Provider) oxyCODONE (ROXICODONE) immediate release tablet 5 mg 5 mg, oral, Every 4 hours PRN, severe pain, Starting on Sun05/05/25 at 1342 2210 (Given - Provider: Willian Mak RN) 1219 ([facility] Hold - Provider: Automatic Transfer Provider - Reason: Patient not available)1528 ([facility] Unhold - Provider: Automatic Transfer Provider)2224 (Given - Provider: Willian Mak RN) sodium chloride 0.9 % flush 10 mL(Linked Group 1) 10 mL, intravenous, As needed, line care, Starting on Sun05/01/25 at 1808 1219 ([facility] Hold - Provider: Automatic Transfer Provider - Reason: Patient not available)1528 ([facility] Unhold - Provider: Automatic Transfer Provider) sodium chloride 0.9 % infusion 42 mL/hr, intravenous, As needed, pre-, and post- transfusion as needed for line flush purposes, in conjunction with blood product transfusion only, Starting on 05/06/25 at 0832, -Use only the amount required from a 250 mL bag of NS to adequately flush -A new NS bag is required with each new unit of blood administered 1219 ([facility] Hold - Provider: Automatic Transfer Provider - Reason: Patient not available)1528 ([facility] Unhold - Provider: Automatic Transfer Provider) sodium chloride 0.9 % infusion 42 mL/hr, intravenous, As needed, pre-, and post- transfusion as needed for line flush purposes, in conjunction with blood product transfusion only, Starting on Marguerite 05/07/25 at 0910, -Use only the amount required from a 250 mL bag of NS to adequately flush -A new NS bag is required with each new unit of blood administered 1219 ([facility] Hold - Provider: Automatic Transfer Provider - Reason: Patient not available)1528 ([facility] Unhold - Provider: Automatic Transfer Provider) sodium chloride 0.9 % infusion 42 mL/hr, intravenous, As needed, pre-, and post- transfusion as needed for line flush purposes, in conjunction with blood product transfusion only, Starting on 05/09/25 at 1327, -Use only the amount required from a 250 mL bag of NS to adequately flush -A new NS bag is required with each new unit of blood administered 1219 ([facility] Hold - Provider: Automatic Transfer Provider - Reason: Patient not available)1528 ([facility] Unhold - Provider: Automatic Transfer Provider) Linked Groups Order Group 1: Insert peripheral IV STAT, Once, On Sun05/01/25 at 1809, For 1 occurrence And Maintain IV access Until discontinued, Starting on Sun05/01/25 at 1809, Until Specified And Saline lock IV Routine, Once, On Sun05/01/25 at 1809, For 1 occurrence And sodium chloride 0.9 % flush 10 mLJump to med 10 mL, intravenous, 2 times daily, First dose on Sun05/01/25 at 2100 And sodium chloride 0.9 % flush 10 mLJump to med 10 mL, intravenous, As needed, line care, Starting on Sun05/01/25 at 1808 documented in this encounter Orders Medications Ordered That Clemente ht Not Have Been Administered Count Last Ordered Date First Ordered Date acetaminophen (TYLENOL) tablet 650 mg 1 HYDROmorphone (DILAUDID) injection 0.5 mg 4 05/18/2025 05/01/2025 lactated Ringer's infusion 2 05/18/2025 1 07/15/2024 meropenem (MERREM) 1 g in so dium chloride 0.9 % 100 mL IVPB 2 05/18/2025 05/15/2025 ondansetron (PF) (ZOFRAN) injection 4 mg 3 05/18/2025 05/01/2025 ondansetron ODT (ZOFRAN-ODT) disintegrating tablet 4 mg 1 05/18/2025 oxyCODONE (ROXICODONE) immed iate release tablet 5 mg 3 05/18/2025 05/05/2025 fentaNYL (PF) (SUBLIMAZE) injection 50 mcg 3 05/15/2025 05/05/2025 acetaminophen (TYLENOL) tablet 1,000 mg 1 1 07/13/2024 haloperidol lactate (HALDOL) injection 1 mg 2 05/13/2025 05/05/2025 HYDROmorphone (DILAUDID) injection 0.2 mg 1 05/13/2025 sodium chloride 0.9 % infusion 3 05/09/2025 05/04/2025 ceFAZolin (ANCEF) 2 g in vero rile water 20 mL IV syringe 1 05/05/2025 diphenhydrAMINE (BENADRYL) i njection 12.5 mg 1 05/05/2025 oxyCODONE (ROXICODONE) immed iate release tablet 2.5 mg 1 05/05/2025 naloxone (NARCAN) injection 0.04 mg 1 05/01 sodium chloride 0.9 % flush 10 mL 1 025 Diet Count Last Ordered Date First Orde red Date ADULT NPO DIET 1 05/19/2025 ADULT DIET 1 05/18/2025 Nursing Count Last Ordered Date First Orde red Date APPLY WOUND VAC 1 05/13/2025 WEIGHT BEARING RESTRICTIONS 1 05/13/2025 [id number] 4 05/09/2025 05/04/2025 APPLY (EQUIPMENT) 1 05/05/2025 APPLY ICE TO AFFECTED AREA 1 05/05/2025 DO NOT CHANGE/ REMOVE DRESSING 1 05/05/2025 STRAIGHT CATH 1 05/05/2025 INCENTIVE SPIROMETRY NURSING 1 05/02/2025 APPLICATION GRADUATED COMPRE SSION STOCKINGS 1 05/01/2025 MAINTAIN IV ACCESS 1 05/01/2025 PULSE OXIMETRY 1 05/01/2025 SEQUENTIAL COMPRESSION DEVICE 1 05/01/2025 VITAL SIGNS 1 05/01/2025 Code Status Count Last Ordered Date First Orde red Date FULL CODE CONFIRMED 1 05/01/2025 Consult Count Last Ordered Date First Orde red Date IP CONSULT TO INFECTIOUS DISEASES 1 025 IP CONSULT TO NUTRITION SERVICES 1 05/02/20 25 IP CONSULT TO ORTHOPEDIC SURGERY 1 05/01/20 25 Nourishments Count Last Ordered Date First Orde red Date DIETARY NUTRITION SUPPLEMENTS 1 05/07/2025 OT Count Last Ordered Date First Orde red Date OT EVAL AND TREAT 1 05/13/2025 PT Count Last Ordered Date First Orde red Date PT EVAL AND TREAT 2 05/13/2025 05/05/2025 Respiratory Care Count Last Ordered Date First Ordered Date OXYGEN THERAPY, ADULT 4 05/18/20252024 IV Count Last Ordered Date First Orde red Date INSERT PERIPHERAL IV 1 05/01/2025 SALINE LOCK IV 1 05/01/2025 Admission Count Last Ordered Date First Orde red Date ADMIT TO INPATIENT 1 05/02/2025 INITIATE OBSERVATION STATUS 1 05/01/2025 Transfer Count Last Ordered Date First Orde red Date ED TO FLOOR BED REQUEST 2 05/01/2025 Precaution Count Last Ordered Date First Orde red Date FALL PRECAUTIONS 2 05/03/2025 05/02/2025 documented in this encounter Additional Health Concerns Active Problems Noted Date Diagnosed Date Autogenerated Problem 04/02/2025 Autogenerated Problem 04/09/2025 Autogenerated Problem 04/13/2025 Autogenerated Problem 04/13/2025 Assessment Noted Time PHQ-9 Depression Total Score: 1 02/05/20 25 12:33 PM EDT documented as of this encounter Care Teams Home Health Specialist Relationship Specialty Start Date End Date Lilliam Levy MD [address] [place] [address] PCP - General Internal Medicine 07/11/21 documented as of this encounter
--- OUTSIDE RECORDS SUMMARY | 2025-05-15 10:00 | XMS_ITS | Encounter Summary ---
Author Organization [facility] Address [address] [place] [address] Care Team Providers Care Wardrobe Coordinator Name Role Phone Lilliam Levy MD Primary Care Provider Reason for Visit * Reason Comments Leg Injury Right hip/distal fem ur * Auth/Cert (Routine) Specialty Diagnoses / Procedures Referred By Contricha t Referred To Contact Diagnoses Periprosthetic fracture around prosthetic joint, initial encounter Procedures / Miguelangel Winn MD [address] [place] [id number] Phone: tel: fax: [facility] Emergency [address] [place] [address] Phone: tel: Referral ID Status Reason Start Date Expiration Date Visits Re quested Visits Authorized [id number] 1 1 Encounter Details Date Type Department Care Team (Late st Contact Info) Description 05/15/2025 10:00 AM EST - 05/15/2025 11:00 AM EST Surgery [facility] Main OR [address] [place] [address] Gris Mojica MD [address] [place] [id number] INCISION DRAINAGE EXTREMITY LOWER WITH WOUND VAC CHANGE [96350 (CPT )] Surgery Details Date/Time Status Location OR Service Patient Class Case Class Case Type Trauma Case? 05/15/2025 10:00 AM Posted [facility] OR OR Orthopedics Inpatient Panel 1 Procedure [facility] Anes Op Region Wound Class Comments INCISION DRAINAGE EXTREMITY LOWER WITH WOUND VAC CHANGE Right general Leg Lower Class III/ Contaminated cystotubing, saline, VAC, lateral/beanbag, standard bed, case #2 Surgeon Surgeon Role Service Panel Gris Mojica MD Primary Orthopedics 1 Case Notes cystotubing, saline, VAC, lateral/beanbag, standard bed, case #2 documented in this encounter Social History Tobacco Use Types Packs/Day Years [...] Record ed Within the last 3 months, ho w many times did you visit the emergency [...] for your loved ones. For example, child and adolescent psychologist or elderly care for an older adult? [...] Sign Reading Time Taken Comments Blood Pressure 130/82 05/15/2025 9:35 AM EST Pulse 87 05/15/2025 9:35 AM EST Temperature 36.6 C (97.9 F) 05/15/2025 7:42 AM EST Respiratory Rate 15 05/15/2025 7:42 AM EST Oxygen Saturation 98% 05/15/2025 9:35 AM EST Inhaled Oxygen Concentration - - Weight 47.6 kg (105 lb) 05/04/2025 5:29 PM EST Height 165.1 cm (5' 5 ) 05/01/2025 2:38 PM EST Body Mass Index 17.47 05/01/2025 2:38 PM EST documented in this encounter Functional Status * Calculated C-SSRS Risk Score (Lifetime/Recent) Answer Date of Assessment Author No Risk Indicated 05/01/2025 2:38 PM Lyndsay Moran RN * [place] Suicide Severity Rating Scale (Screener/Recent Self-Report) Question Answer Date of Assessment Author 1. Wish to be (Past 1 Month) No 025 2:38 PM Lyndsay Moran RN 2. Non-Specific Active Suici victoria Thoughts (Past 1 Month) No 05/01/2025 2:38 PM April Moran RN 6. Suicidal Behavior (Lifetime) No 5 2:38 PM Lyndsay Moran RN documented as of this encounter Progress [...] Villagran, PT - 05/19/2025 10:40 AM EST [facility] Physical Therapy Treatment PT Discharge Recommendations: custodial facility placement Staff Recommendations for safe patient [...] is a 84 y.o. female admitted to [facility] on 05/01/2025 with: Problem List[1] Modified Columbia Scale: 4=Moderately severe disability. Unable to attend [...] 2-5 days per week PT Discharge Recommendations custodial facility placement Equipment Recommended Walker - rolling PT - Evaluation Status Complete PT - OK to Discharge (pt awaitng another procedure on 05/22/25) Procedure/Treatment: Procedures Procedures: Therapeutic Activity Gait Training Gait Training Time Entry: 24 Gait Training Activity 1: pt in bed at outset, moved supine-sitting unassisted, and [facility]; She ambulated to [...] 1 time per day PT Discharge Recommendations: custodial facility placement Equipment Recommended: Walker - rolling [...] V24, CMS/HCC V28) CHF (congestive heart failure) ([facility]/HCC V24, CMS/HCC V28) Collagenous colitis Depression HTN (hypertension) Mitral valve regurgitation Takotsubo cardiomyopathy C. 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 S/P right hip fracture Closed displaced subtrochanteric fracture of right femur (CMS/HCC V24, CMS/HCC V28) Bleeding from right hip wound Atrial fibrillation with rapid ventricular response (CMS/HCC V24, [facility] V28) Moderate malnutrition ([facility] V24) Periprosthetic fracture around prosthetic joint, initial encounter Other closed fracture of distal end of right femur, initial encounter ([facility] V24, CMS/[facility] V28) Sharron-prosthetic fracture of femur at tip [...] a 84 y.o. female : 1940 MR#: [id number] SUBJECTIVE Subjective Patient seen and examined bedside [...] last 7 days Lab Units 05/18/25 0621 05/16/25 0631 05/15/25 0551 05/14/25 0707 SODIUM mmol/L [...] last 7 days Lab Units 05/18/25 0621 05/16/25 0631 05/15/25 0551 05/14/25 0707 05/13/25 [...] distal end of right femur, initial encounter ([facility] V24, [facility] V28) Hematoma of left thigh No problem-specific [...] Trimethoprim/Sulfamethoxazole Susceptible ug/ml Enterobacter cloacae complex - SALU Amoxicillin/Clavulanate Resistant ug/ml Cefoxitin Resistant ug/ml Ceftazidime [...] Alignment of the major fracture fragmentsis anatomic. [facility] ([id number]) -------- FINAL REPORT -------- Dictated By: Carmen Prado Dictated Date: 05/13/2025 16:08 ET Assigned Physician: Carmen Prado Reviewed and Electronically Signed By: Carmen Prado Signed Date: 05/13/2025 16:13 ET Workstation ID: [id number] Transcribed By: Self Edit Transcribed Date: 05/13/2025 [...] Signed Date: 05/13/2025 13:19 ET Workstation ID: [id number] Transcribed By: Self Edit Transcribed Date: 05/13/2025 [...] noted. The dose-area product for this procedure [id number] mGy*cm2. PQRI CPT II G9500 -------- FINAL REPORT -------- Dictated By: Casimiro Ryan Dictated Date: 05/06/2025 07:45 ET Assigned Physician: Casimiro Ryan Reviewed and Electronically Signed By: Casimiro Ryan Signed Date: 05/06/2025 07:48 ET Workstation ID: [id number] Transcribed By: Self Edit Transcribed Date: 05/06/2025 [...] Signed Date: 05/02/2025 10:26 ET Workstation ID: [id number] Transcribed By: Self Edit Transcribed Date: 05/02/2025 [...] Signed Date: 05/01/2025 16:39 ET Workstation ID: [id number] Transcribed By: Self Edit Transcribed Date: 05/01/2025 [...] Signed Date: 05/01/2025 16:38 ET Workstation ID: [id number] Transcribed By: Self Edit Transcribed Date: 05/01/2025 16:37 ET XR Femur 2+ Views Right Result Date: 04/23/2025 Narrative: This order has been auto-finalized and does not contain a result. Assessment/Plan: Isabella Díaz is a 84 y.o. female who has a past medical history of Atrial fibrillation ([facility], [facility] V28) (01/17/2021), CHF (congestive heart failure) (CMS/HCC V24, CMS/HCC V28) (01/17/2021), Clostridium difficile diarrhea (03/26/2024), Depression (01/17/2021), Hypertension, NSTEMI (non-ST elevated myocardial infarction) (CMS/HCC V24, CMS/HCC V28) (01/17/2021), NSTEMI (non-ST elevatedmyocardial infarction) (CMS/HCC V24, CMS/HCC V28) (01/17/2021), Pubic ramus fracture ([facility] V24, CMS/HCC V28) (11/30/2021), and Takotsubo cardiomyopathy (01/17/2021).. The [...] BMP and fax to my office at [phone], then on 06/27 please start the pt [...] Ordered 05/18/25 0838 Adult NPO diet Location: [facility]; Diet: NPO- Except for Medications Diet effective now Question Answer Comment Location [facility] Diet NPO- Except for Medications 05/18/25 0837 05/07/25 1035 Dietary nutrition supplements Two times daily (BID); [facility]; Standard Oral Supplement Continuous Comments: Chocolate, breakfast and dinner Question Answer Comment Frequency Two times daily (BID) Location [facility] Supplements Standard Oral Supplement 05/07/25 1035 [...] over time, not intentional, but gradual. Appetite INSPECTOR GENERAL: Good Intake INSPECTOR GENERAL: Stable Vitamins/Minerals/Herbs: Pt reports she takes a [...] Past Medical History: Diagnosis Date Atrial fibrillation ([facility] V24, [facility] V28) 01/17/2021 DX:Atrial fibrillation ([facility]) CHF (congestive heart failure) ([facility] V24, [facility] V28) 01/17/2021 DX:CHF (congestive heart failure) ([facility]) Clostridium difficile diarrhea 03/26/2024 DX:Clostridium difficile diarrhea Depression 01/17/2021 DX:Depression Hypertension NSTEMI (non-ST elevated myocardial infarction) ([facility] V24, [facility] V28) 01/17/2021 DX:NSTEMI (non-ST elevated myocardial infarction) ([facility]); COMMENT: 12/2020 Dr Eller, holter monitor and cardiac cath as outpt. NSTEMI (non-ST elevated myocardial infarction) ([facility] V24, [facility] V28) 01/17/202112/2020 Dr Eller, holter monitor and cardiac cath as outpt. Pubic ramus fracture ([facility] V24, [facility] V28) 11/30/2021 DX:Pubic ramus fracture ([facility]) Takotsubo cardiomyopathy 01/17/2021 DX:Takotsubo cardiomyopathy [2] Past [...] from the original note were not included. BATH PROGRESS NOTE Date: 05/17/2025 Author: Kobi Franklin MD Patient ID: Isabella Díaz is a 84 y.o. female : 1940 MR#: [id number] SUBJECTIVE Subjective Patient seen and examined bedside this morning. Sitting comfortably on the chair. Denies any pain. Objective Allergy- Patient has no known allergies. OBJECTIVE Vitals: 05/16/25 1457 05/16/25 2015 05/17/25 0317 05/17/25 0819 BP: 111/77 121/80 132/78 [...] distal end of right femur, initial encounter ([facility] V24, [facility] V28) Hematoma of left thigh No problem-specific [...] AM EST Plan is to return to [facility]: OR 05/18, wound vac, clinical improvement, ID [...] a 84 y.o. female : 1940 MR#: [id number] SUBJECTIVE Subjective Patient seen and examined bedside this morning. Offers no complaints reports no events overnight. Pain is very much under control. Objective Allergy- Patient has no known allergies. OBJECTIVE Vitals: 05/15/256 05/15/25 2352 05/16/25 0405 05/16/25 0744 BP: [...] distal end of right femur, initial encounter ([facility] V24, [facility] V28) Hematoma of left thigh No problem-specific [...] Villagran PT - 05/15/2025 4:00 PM EST [facility] Physical Therapy Treatment PT Discharge Recommendations: custodial facility placement Staff Recommendations for safe patient [...] is a 84 y.o. female admitted to [facility] on 05/01/2025 with: Problem List[1] Modified [...] br, and navigated in tight space with [facility]; toilet transfer required mod assist to slowly [...] 2-5 days per week PT Discharge Recommendations custodial facility placement Equipment Recommended Walker - rolling [...] br, and navigated in tight space with [facility]; toilet transfer required mod assist to slowly [...] 1 time per day PT Discharge Recommendations: custodial facility placement Equipment Recommended: Walker - rolling [...] Outcome 05/12/25 1130 Herlinda Villagran, PT Progressing Goal: Patient will [...] Patient Active Problem List Diagnosis Atrial fibrillation ([facility]/HCC V24, [facility] V28) CHF (congestive heart failure) ([facility]/HCC V24, [facility]/HCC V28) Collagenous colitis Depression HTN (hypertension) Mitral valve regurgitation Takotsubo cardiomyopathy C. 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 S/P right hip fracture Closed displaced subtrochanteric fracture of right femur ([facility] V24, [facility] V28) Bleeding from right hip wound Atrial fibrillation with rapid ventricular response (CMS/HCC V24, [facility] V28) Moderate malnutrition ([facility] V24) Periprosthetic fracture around prosthetic joint, initial encounter Other closed fracture of distal end of right femur, initial encounter ([facility] V24, [facility] V28) Sharron-prosthetic fracture of femur at tip [...] a 84 y.o. female : 1940 MR#: [id number] SUBJECTIVE Subjective Seen and examined. Some pain at surgical site Objective Allergy- Patient has no known allergies. OBJECTIVE Vitals: 05/15/25 1300 05/15/25 1315 05/15/25 1322 05/15/25 1325 BP: 128/82 128/71 121/75 119/75 BP Location: Patient Position: Pulse: 89 87 86 93 Resp: Temp: TempSrc: SpO2: 97% 98% Weight: Height: [...] from last 7 days Lab Units 05/15/25 0505/14/25 0707 05/13/25 0601 05/12/25 0545 05/11/25 0616 [...] from last 7 days Lab Units 05/15/25 0505/14/25 0707 05/13/25 0601 05/12/25 0545 05/10/25 0601 [...] distal end of right femur, initial encounter ([facility] V24, [facility] V28) Hematoma of left thigh No problem-specific [...] additional I&D, Ortho following Plan: return to [facility] * Herlinda Villagran PT - 05/15/2025 10:20 [...] Spear OT - 05/14/2025 5:00 PM EST [facility] Occupational Therapy Treatment Note DATE: April [...] a 84 y.o. female : 1940 MR#: [id number] 05/01/2025 SUBJECTIVE Patient seen and examined today. [...] Sitting Pulse: 106 94 89 98 Resp: Temp: 36.6 ??C (97.9 ??F) 36.5 ??C [...] of the major fracture fragments is anatomic. [facility] ([id number]) -------- FINAL REPORT -------- Dictated By: Carmen Prado Dictated Date: 05/13/2025 16:08 ET Assigned Physician: Carmen Prado Reviewed and Electronically Signed By: Carmen Prado Signed Date: 05/13/2025 16:13 ET Workstation ID: [id number] Transcribed By: Self Edit Transcribed Date: 05/13/2025 [...] Signed Date: 05/13/2025 13:19 ET Workstation ID: [id number] Transcribed By: Self Edit Transcribed Date: 05/13/2025 [...] Gold, PT - 05/14/2025 11:45 AM EST [facility] Physical Therapy Treatment PT Discharge Recommendations: custodial facility placement Staff Recommendations for safe patient [...] is a 84 y.o. female admitted to [facility] on 05/01/2025 with: Problem List[1] Fall [...] of the eccentric contraction, heel slides to [id number] with S . She was instructed to complete quad sets throughout the day while in bed. PT Assessment PT Assessment Results Decreased strength;Decreased endurance Prognosis Good Medical Staff Made Aware Yes Plan Treatment/Interventions Functional transfer training;LE strengthening/ROM;Endurance training;Bed mobility;Gait training PT Plan Skilled PT PT Frequency 2-5 days per week PT Discharge Recommendations custodial facility placement PT - Evaluation Status Complete [...] 1 time per day PT Discharge Recommendations: custodial facility placement Equipment Recommended: Walker - rolling [...] Outcome 05/12/25 1130 Herlinda Villagran, PT Progressing Goal: Patient will [...] bed Education Comments No comments found. Carolina Gold PT [1] Patient Active Problem List Diagnosis Atrial fibrillation (CMS/HCC V24, CMS/HCC V28) CHF (congestive heart failure) (CMS/HCC V24, CMS/HCC V28) Collagenous colitis Depression HTN (hypertension) Mitral valve regurgitation Takotsubo cardiomyopathy C. 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 S/P right hip fracture Closed displaced subtrochanteric fracture of right femur (CMS/HCC V24, CMS/HCC V28) Bleeding from right hip wound Atrial fibrillation with rapid ventricular response (CMS/HCC V24, CMS/HCC V28) Moderate malnutrition ([facility] V24) Periprosthetic fracture around prosthetic joint, initial encounter Other closed fracture of distal end of right femur, initial encounter ([facility]/HCC V24, [facility] V28) Sharron-prosthetic fracture of femur at tip [...] this week, IV antibiotics Plan: return to [facility] * Amanda Woods MD - 05/13/2025 1:25 PM EST Images from the original note were not included. IMAN PROGRESS NOTE Date: 05/13/2025 Author: Amanda Woods MD Patient ID: Isabella Díaz is a 84 y.o. female : 1940 MR#: [id number] 05/01/2025 SUBJECTIVE Patient seen and examined today. [...] Signed Date: 05/13/2025 13:19 ET Workstation ID: [id number] Transcribed By: Self Edit Transcribed Date: 05/13/2025 [...] EST Type of Visit: Initial Visit and Bacteriologist [employer] Reason for Visit: Spiritual/Emotional Support and Spiritual Assessment Time Spent: 10 Minutes Location: [address] [place] [address] Sacramental Encounters: Spiritual Distress Assessment: Spiritual Distress [...] better. Voiced being supported by family. Karen orthodoxy is Gnosticism, prayed for good health. Thankful for the [...] usually? Transcendence Do you have a particular orthodoxy, karen, or spirituality? Is your orthodoxy/spirituality/karen challenged by what is happening to you [...] a 84 y.o. female : 1940 MR#: [id number] 05/01/2025 SUBJECTIVE Patient seen and examined today. [...] Signed Date: 05/06/2025 07:48 ET Workstation ID: [id number] Transcribed By: Self Edit Transcribed Date: 05/06/2025 [...] onward) Start Ordered 05/07/25 1036 Adult diet [facility]; General, Cardiac; Regular; Sodium 2 gm Restriction (Order Panel) Diet effective now Question Answer Comment Location [facility] Diet Type (req) General Diet Type (req) Cardiac General Diet Regular Diet Type (cardiac) Sodium 2 gm Restriction 05/07/25 1035 05/07/25 1035 Dietary nutrition supplements Two times daily (BID); [facility]; Standard Oral Supplement Continuous Comments: Chocolate, breakfast and dinner Question Answer Comment Frequency Two times daily (BID) Location [facility] Supplements Standard Oral Supplement 05/07/25 1035 [...] over time, not intentional, but gradual. Appetite INSPECTOR GENERAL: Good Intake INSPECTOR GENERAL: Stable Vitamins/Minerals/Herbs: Pt reports she takes a [...] Past Medical History: Diagnosis Date Atrial fibrillation ([facility] V24, [facility] V28) 01/17/2021 DX:Atrial fibrillation ([facility]) CHF (congestive heart failure) ([facility] V24, [facility] V28) 01/17/2021 DX:CHF (congestive heart failure) ([facility]) Clostridium difficile diarrhea 03/26/2024 DX:Clostridium difficile diarrhea Depression 01/17/2021 DX:Depression Hypertension NSTEMI (non-ST elevated myocardial infarction) ([facility] V24, [facility] V28) 01/17/2021 DX:NSTEMI (non-ST elevated myocardial infarction) ([facility]); COMMENT: 12/2020 Dr Eller, holter monitor and cardiac cath as outpt. NSTEMI (non-ST elevated myocardial infarction) ([facility] V24, [facility] V28) 01/17/202112/2020 Dr Eller, holter monitor and cardiac cath as outpt. Pubic ramus fracture ([facility] V24, [facility] V28) 11/30/2021 DX:Pubic ramus fracture ([facility]) Takotsubo cardiomyopathy 01/17/2021 DX:Takotsubo cardiomyopathy [2] Past [...] Villagran, PT - 05/12/2025 8:25 AM EST [facility] Physical Therapy Treatment PT Discharge Recommendations: custodial facility placement Staff Recommendations for safe patient [...] is a 84 y.o. female admitted to [facility] on 05/01/2025 with: Problem List[1] Modified Columbia Scale: 3=Moderate disability. Requires some help, but [...] supine-sitting unassisted, and sit to stand at [facility] for hand placement; She ambulated to bathroom (10 ft) , wbat on r with brace on , sba, and performed toilet transfer with min assist to [facility] with control and lift off Gait Training [...] supine-sitting unassisted, and sit to [facility]; She ambulated to [...] 1 time per day PT Discharge Recommendations: custodial facility placement Equipment Recommended: Walker - rolling [...] Outcomes Date/Time User Outcome 05/08/25 1319 Herlinda Villagran, PT Not Progressing Encounter Problems [...] pattern on stairs Mobility Training, taught by Helrinda Villagran PT at 05/12/2025 11:27 AM. Learner: Patient Readiness: Acceptance Method: Explanation Response: Verbalizes Understanding Comment: educated in correct 2 ft per step pattern on stairs Education Comments No comments found. Herlinda Villagran, PT [1] Patient Active Problem List Diagnosis Atrial fibrillation (CMS/HCC V24, CMS/HCC V28) CHF (congestive heart failure) (CMS/HCC V24, CMS/HCC V28) Collagenous colitis Depression HTN (hypertension) Mitral valve regurgitation Takotsubo cardiomyopathy C. 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 S/P right hip fracture Closed displaced subtrochanteric fracture of right femur (CMS/HCC V24, CMS/HCC V28) Bleeding from right hip wound Atrial fibrillation with rapid ventricular response (CMS/HCC V24, CMS/HCC V28) Moderate malnutrition (CMS/HCC V24) Periprosthetic fracture around prosthetic joint, initial encounter Other closed fracture of distal end of right femur, initial encounter ([facility] V24, CMS/HCC V28) Sharron-prosthetic fracture of femur [...] drainage from post-op site Plan return to [facility] hold * Amanda Woods MD - 05/11/2025 12:35 PM EST Images from the original note were not included. IMAN PROGRESS NOTE Date: 05/11/2025 Author: Amanda Woods MD Patient ID: Isabella Díaz is a 84 y.o. female : 1940 MR#: [id number] 05/01/2025 SUBJECTIVE Patient seen and examined today. [...] Lying Pulse: 90 78 91 90 Resp: 18 Temp: 36.8 ??C (98.2 ??F) 36.7 ??C [...] Signed Date: 05/06/2025 07:48 ET Workstation ID: [id number] Transcribed By: Self Edit Transcribed Date: 05/06/2025 [...] Gold, PT - 05/11/2025 11:45 AM EST [facility] Physical Therapy Treatment PT Discharge Recommendations: custodial facility placement Staff Recommendations for safe patient [...] is a 84 y.o. female admitted to [facility] on 05/01/2025 with: Problem List[1] Fall [...] 2-5 days per week PT Discharge Recommendations custodial facility placement PT - Evaluation Status Complete [...] 1 time per day PT Discharge Recommendations: custodial facility placement Equipment Recommended: Walker - rolling [...] Outcomes Date/Time User Outcome 05/08/25 1319 Herlinda Villagran, PT Not Progressing Encounter Problems [...] understanding Education Comments No comments found. Carolina Gold PT [1] Patient Active Problem List Diagnosis Atrial fibrillation ([facility] V24, [facility] V28) CHF (congestive heart failure) ([facility] V24, [facility] V28) Collagenous colitis Depression HTN (hypertension) Mitral valve regurgitation Takotsubo cardiomyopathy C. 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 S/P right hip fracture Closed displaced subtrochanteric fracture of right femur ([facility] V24, [facility] V28) Bleeding from right hip wound Atrial fibrillation with rapid ventricular response ([facility] V24, [facility] V28) Moderate malnutrition ([facility] V24) Periprosthetic fracture around prosthetic joint, initial encounter Other closed fracture of distal end of right femur, initial encounter ([facility] V24, [facility] V28) Sharron-prosthetic fracture of femur at tip of prosthesis * Anne Spear, OT - 05/11/2025 9:52 AM EST [facility] Occupational Therapy Treatment Note DATE: Sunday May 11, 2025 TIME IN: 0900 TIME OUT: 929 Pt: Isabella Díaz 540/540-1 DISCHARGE RECS: Inpatient [...] teeth brushed at the sink Objective 05/11/25 09 OT Last Visit OT Received On 05/11/25 General Family/Caregiver Present No OT Time Calculation OT Start Time 899 OT Stop Time 929 OT Time Calculation (min) 30 min Precautions [...] Bermudez, PT - 05/10/2025 3:36 PM EST [facility] Physical Therapy Treatment PT Discharge Recommendations: custodial facility placement Staff Recommendations for safe patient [...] is a 84 y.o. female admitted to [facility] on 05/01/2025 with: Problem List[1] Fall [...] 1 time per day PT Discharge Recommendations custodial facility placement Procedure/Treatment: Procedures Procedures: Gait Training, [...] 1 time per day PT Discharge Recommendations: custodial facility placement Equipment Recommended: Walker - rolling [...] Patient Active Problem List Diagnosis Atrial fibrillation ([facility] V24, [facility] V28) CHF (congestive heart failure) ([facility] V24, [facility] V28) Collagenous colitis Depression HTN (hypertension) Mitral valve regurgitation Takotsubo cardiomyopathy C. 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 S/P right hip fracture Closed displaced subtrochanteric fracture of right femur (CMS/HCC V24, CMS/HCC V28) Bleeding from right hip wound Atrial fibrillation with rapid ventricular response (CMS/HCC V24, CMS/HCC V28) Moderate malnutrition (CMS/HCC V24) Periprosthetic fracture around prosthetic joint, initial encounter Other closed fracture of distal end of right femur, initial encounter (CMS/HCC V24, CMS/HCC V28) Sharron-prosthetic fracture of femur at tip of prosthesis * Mecca Barrios MD - 05/10/2025 1:53 PM EST Images from the original note were not included. IMAN PROGRESS NOTE Date: 05/10/2025 Author: Mecca Barrios MD Patient ID: Isabella Díaz is a 84 y.o. female : 1940 MR#: [id number] SUBJECTIVE CC: Follow-up right femoral fracture Hip [...] by them. In the hospital to use [id number] mg daily for DVT prophylaxis and on [...] a 84 y.o. female : 1940 MR#: [id number] SUBJECTIVE CC: Follow-up right femoral fracture Pain [...] monitor H&H and drainage Plan return to [facility] * Mecca Barrios MD - 05/08/2025 12:54 PM EST Images from the original note were not included. IMAN PROGRESS NOTE Date: 05/08/2025 Author: Mecca Barrios MD Patient ID: Isabella Díaz is a 84 y.o. female : 1940 MR#: [id number] SUBJECTIVE CC: Follow-up right femoral fracture Up [...] to rehab once okay from ortho standpoint. K Guillen - 05/08/2025 12:21 PM EST Orthopedic Trauma [...] Villagran, PT - 05/08/2025 10:16 AM EST [facility] Physical Therapy Treatment PT Discharge Recommendations: custodial facility placement Staff Recommendations for safe patient [...] is a 84 y.o. female admitted to [facility] on 05/01/2025 with: Problem List[1] Modified Columbia Scale: 4=Moderately severe disability. Unable to attend [...] brace, abd pillow in bed) Prosthesis/Orthosis Used [facility] Pain Assessment Pain Assessment 0-10 [...] 5 days per week PT Discharge Recommendations custodial facility placement Equipment Recommended Walker - rolling [...] 1 time per day PT Discharge Recommendations: custodial facility placement Equipment Recommended: Walker - rolling [...] End: 05/13/25 Outcomes Date/Time User Outcome 05/07/25 165Bruce Bermudez PT Progressing Goal: Patient will be able to safely negotiate 5 stairs with 1 rail, min assist Dates: Start: 05/06/25 Expected End: 05/13/25 Outcomes Date/Time User Outcome 05/07/25 165Bruce Bermudez PT Not Progressing Encounter Problems (Resolved) [...] gait Education Comments No comments found. Herlinda Villagran, PT [1] Patient Active Problem List Diagnosis Atrial fibrillation ([facility] V24, [facility] V28) CHF (congestive heart failure) ([facility] V24, [facility] V28) Collagenous colitis Depression HTN (hypertension) Mitral valve regurgitation Takotsubo cardiomyopathy C. 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 S/P right hip fracture Closed displaced subtrochanteric fracture of right femur ([facility] V24, [facility] V28) Bleeding from right hip wound Atrial fibrillation with rapid ventricular response ([facility] V24, [facility] V28) Moderate malnutrition ([facility] V24) Periprosthetic fracture around prosthetic joint, initial encounter Other closed fracture of distal end of right femur, initial encounter ([facility] V24, [facility] V28) Sharron-prosthetic fracture of femur at tip [...] Bermudez PT - 05/07/2025 4:27 PM EST [facility] Physical Therapy Treatment PT Discharge Recommendations: custodial facility placement Staff Recommendations for safe patient [...] is a 84 y.o. female admitted to [facility] on 05/01/2025 with: Problem List[1] Fall [...] 1 time per day PT Discharge Recommendations custodial facility placement Equipment Recommended Walker - rolling [...] 1 time per day PT Discharge Recommendations: custodial facility placement Equipment Recommended: Walker - rolling [...] Documentation Home Exercise Program, taught by Kamilla Bermudez PT at 05/07/2025 [...] V24, CMS/HCC V28) CHF (congestive heart failure) ([facility]/HCC V24, [facility] V28) Collagenous colitis Depression HTN (hypertension) Mitral valve regurgitation Takotsubo cardiomyopathy C. difficile diarrhea Chronic obstructive pulmonary disease (CMS/HCC V24, [facility] V28) Glaucoma Coronary artery disease involving [place] heart without angina pectoris S/P right hip fracture Closed displaced subtrochanteric fracture of right femur (CMS/HCC V24, [facility] V28) Bleeding from right hip wound Atrial fibrillation with rapid ventricular response ([facility] V24, [facility] V28) Moderate malnutrition ([facility] V24) Periprosthetic fracture around prosthetic joint, initial encounter Other closed fracture of distal end of right femur, initial encounter ([facility] V24, [facility] V28) Sharron-prosthetic fracture of femur at tip of prosthesis * Mecca Barrios MD - 05/07/2025 3:31 PM EST Images from the original note were not included. IMAN PROGRESS NOTE Date: 05/07/2025 Author: Mecca Barrios MD Patient ID: Isabella Díaz is a 84 y.o. female : 1940 MR#: [id number] SUBJECTIVE CC: Follow-up right femoral fracture Remains [...] onward) Start Ordered 05/05/25 1344 Adult diet [facility]; General, Cardiac; Regular; Cardiac (Order Panel) Diet effective now Question Answer Comment Location [facility] Diet Type (req) General Diet Type (req) Cardiac General Diet Regular Diet Type (cardiac) Cardiac 05/05/25 1347 05/04/25 1028 Dietary nutrition supplements Lunch; [facility]; Standard Oral Supplement Continuous Comments: chocolate Question Answer Comment Frequency Lunch Location [facility] Supplements Standard Oral Supplement 05/04/25 1027 [...] meals has been good since last visit- [id number]% of trays. States she has not been [...] Past Medical History: Diagnosis Date Atrial fibrillation ([facility] V24, [facility] V28) 01/17/2021 DX:Atrial fibrillation (HCC) CHF (congestive heart failure) ([facility] V24, [facility] V28) 01/17/2021 DX:CHF (congestive heart failure) ([facility]) Clostridium difficile diarrhea 03/26/2024 DX:Clostridium difficile diarrhea Depression 01/17/2021 DX:Depression Hypertension NSTEMI (non-ST elevated myocardial infarction) ([facility] V24, [facility] V28) 01/17/2021 DX:NSTEMI (non-ST elevated myocardial infarction) ([facility]); COMMENT: 12/2020 Dr Eller, holter monitor and cardiac cath as outpt. NSTEMI (non-ST elevated myocardial infarction) ([facility] V24, [facility] V28) 01/17/202112/2020 Dr Eller, holter monitor and cardiac cath as outpt. Pubic ramus fracture ([facility] V24, [facility] V28) 11/30/2021 DX:Pubic ramus fracture ([facility]) Takotsubo cardiomyopathy 01/17/2021 DX:Takotsubo cardiomyopathy [2] Past [...] sodium chloride, sodium chloride * BURAK Urbina 05/07/2025 7:55 AM EST Orthopedic Trauma Progress [...] and above agreed to by Dr. Baeza. BURAK Acuna-C * Mecca Barrios MD - 05/06/2025 4:59 PM EST Images from the original note were not included. IMAN PROGRESS NOTE Date: 05/06/2025 Author: Mecca Barrios MD Patient ID: Isabella Díaz is a 84 y.o. female : 1940 MR#: [id number] SUBJECTIVE CC: Follow-up right femoral fracture Soft [...] started on Lovenox. Pt was on eliquis [employer] and will defer to ortho team when [...] hypotensive requiring bl transfusion Plan return to [facility] hold * Anne Spear OT - 05/06/2025 2:43 PM EST [facility] Occupational Therapy Evaluation DATE: Tuesday May 06, 2025 TIME IN: 1245 TIME OUT: 1315 Pt: Isabella Díaz ROOM: 540/540-1 Discharge Recommendation: Inpatient Rehab Equipment Recommendation: walker Staff recommendations for safe patient handling: Mod assist Modified Columbia Scale Score: 0=No symptoms Assessment: Patient is [...] is a 84 y.o. female admitted to [facility] on 05/01/2025. Occupational Therapy evaluation and [...] Intact Speech: Intact Vision: Vision: Not tested [employer] Is an sign language interpreter used? : No - 05/06/25 1245 OT [...] back Bathroom Accessibility Pt also has leg sample cutter, auto wash buffer and sock aid Prior Function Level of [place] Independent with mobility and functional transfers Ambulation [...] Eating meals [] [] [] [x] Score: 17/24 Score indicates pt would benefit from rehab [...] Comment: Pt reviewed use of AE including auto wash buffer and sock aid as well as long shoe horn and dressing stick. Emphasized avoiding excessive ROM ADL Training, taught by Anne Spear OT at 05/06/2025 2:41 PM. Learner: Patient Readiness: Eager Method: Explanation, Demonstration Response: Verbalizes Understanding, Needs Reinforcement Comment: Pt reviewed use of AE including auto wash buffer and sock aid as well as long shoe horn and dressing stick. Emphasized avoiding excessive ROM Education Comments No comments found. Anne Spear, OT [1] Patient Active Problem List Diagnosis Atrial fibrillation ([facility] V24, [facility] V28) CHF (congestive heart failure) ([facility] V24, [facility] V28) Collagenous colitis Depression HTN (hypertension) Mitral valve regurgitation Takotsubo cardiomyopathy C. 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 S/P right hip fracture Closed displaced subtrochanteric fracture of right femur ([facility] V24, [facility] V28) Bleeding from right hip wound Atrial fibrillation with rapid ventricular response ([facility] V24, [facility] V28[facility] Moderate malnutrition ([facility] V24) Periprosthetic fracture around prosthetic joint, initial encounter Other closed fracture of distal end of right femur, initial encounter ([facility] V24, [facility] V28) Sharron-prosthetic fracture of femur at tip of prosthesis [2] Past Medical History: Diagnosis Date Atrial fibrillation ([facility] V24, [facility] V28) 01/17/2021 DX:Atrial fibrillation ([facility]) CHF (congestive heart failure) ([facility] V24, [facility] V28) 01/17/2021 DX:CHF (congestive heart failure) ([facility]) Clostridium difficile diarrhea 03/26/2024 DX:Clostridium difficile diarrhea Depression 01/17/2021 DX:Depression Hypertension NSTEMI (non-ST elevated myocardial infarction) ([facility] V24, [facility] V28) 01/17/2021 DX:NSTEMI (non-ST elevated myocardial infarction) ([facility]); COMMENT: 12/2020 Dr Eller, holter monitor and cardiac cath as outpt. NSTEMI (non-ST elevated myocardial infarction) ([facility] V24, [facility] V28) 01/17/202112/2020 Dr Eller, holter monitor and cardiac cath as outpt. Pubic ramus fracture ([facility] V24, [facility] V28) 11/30/2021 DX:Pubic ramus fracture ([facility]) Takotsubo cardiomyopathy 01/17/2021 DX:Takotsubo cardiomyopathy [3] Past [...] Villagran, PT - 05/06/2025 8:25 AM EST [facility] Physical Therapy Evaluation & Treatment PT Discharge Recommendations: Inpatient rehab facility placement Staff Recommendations for safe patient handling: bed mobility, transfers, assist x 2 , wbat on r, hinge knee brace Modified Columbia Scale Score: 4=Moderately severe disability. Unable to [...] PT Received On: 05/06/25 PT Start Time: 0825 PT Stop Time: 0900 PT Time Calculation [...] is a 84 y.o. female admitted to [facility] on 05/01/2025. Problem List[1] Medical History[2] Surgical History[3] Social History Home Living Environment: Home Living Type of Home: House Lives With: Alone Home Adaptive Equipment: Walker - rolling, Raised toilet seat, Shower chair, Leg sample cutter, Sock aid, Hand Spring Former (Rollator,recliner) Home Layout: One level, Laundry main level, Full bath main level, Able to live on main level with bedroom/bathroom Home Access: Stairs to enter with rails Entrance Stairs-Rails: Rail on the left going up Entrance Stairs-Number of Steps: 3 Bathroom Shower/Tub: Walk-in shower Bathroom Toilet: Standard Prior Function Level of [place]: Independent with mobility and functional transfers Ambulation Status: Household ambulator, Community ambulator Receives Help From: Family Indoor Mobility Assistance: Independent Stairs Assistance : Independent Prior Device Use: Walker Do you drive?: Yes Which is your dominant hand?: Right General Assessment [employer] Is an sign language interpreter used? : No 05/06/25 0825 PT Last [...] Equipment Walker - rolling;Raised toilet seat;Shower chair;Leg sample cutter;Sock aid;Hand Spring Former (Rollator,recliner) Home Layout One level;Laundry main level;Full bath main level;Able to live on main level with bedroom/bathroom Home Access Stairs to enter with rails Entrance Stairs-Rails Rail on the left going up Entrance Stairs-Number of Steps 3 Bathroom Shower/Tub Walk-in shower Bathroom Toilet Standard Prior Function Level of [place] Independent with mobility and functional transfers Ambulation [...] Ambulated (ft) 3 Comments pt ambulated with hermann wbat on r, r hinge knee brace, [...] Recommended Walker - rolling;Raised toilet seat;Shower chair;Sock aid;Hand Spring Former PT - Evaluation Status Complete PT Evaluation [...] is a 84 y.o. female admitted to [facility] on 05/01/2025 for Periprosthetic fracture around prosthetic joint, initial encounter [M97.9XXA] Other closed fracture of distal end of right femur, initial encounter ([facility] V24, [facility] V28) [S72.491A] . Pt presents with decreased ROM and [...] str Education Comments No comments found. Herlinda Villagran PT [1] Patient Active Problem List Diagnosis Atrial fibrillation ([facility] V24, [facility] V28) CHF (congestive heart failure) ([facility]) Collagenous colitis Depression HTN (hypertension) Mitral valve regurgitation Takotsubo cardiomyopathy C. 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 S/P right hip fracture Closed displaced subtrochanteric fracture of right femur ([facility] V24, [facility] V28[facility] Bleeding from right hip wound Atrial fibrillation with rapid ventricular response ([facility] V24, [facility] V28) Moderate malnutrition ([facility] V24) Periprosthetic fracture around prosthetic joint, initial encounter Other closed fracture of distal end of right femur, initial encounter ([facility] V24, [facility] V28) Sharron-prosthetic fracture of femur at tip of prosthesis [2] Past Medical History: Diagnosis Date Atrial fibrillation ([facility] V24, [facility] V28) 01/17/2021 DX:Atrial fibrillation ([facility]) CHF (congestive heart failure) ([facility] V24, [facility] V28) 01/17/2021 DX:CHF (congestive heart failure) ([facility]) Clostridium difficile diarrhea 03/26/2024 DX:Clostridium difficile diarrhea Depression 01/17/2021 DX:Depression Hypertension NSTEMI (non-ST elevated myocardial infarction) ([facility] V24, [facility] V28) 01/17/2021 DX:NSTEMI (non-ST elevated myocardial infarction) ([facility]); COMMENT: 12/2020 Dr Eller, holter monitor and cardiac cath as outpt. NSTEMI (non-ST elevated myocardial infarction) ([facility] V24, [facility] V28) 01/17/202112/2020 Dr Eller, holter monitor and cardiac cath as outpt. Pubic ramus fracture ([facility] V24, [facility] V28) 11/30/2021 DX:Pubic ramus fracture ([facility]) Takotsubo cardiomyopathy 01/17/2021 DX:Takotsubo cardiomyopathy [3] Past [...] a 84 y.o. female : 1940 MR#: [id number] SUBJECTIVE CC: Follow-up right femoral fracture Seen [...] Barrios MD - 05/05/2025 3:57 PM EST [facility] Provider Response Note PATIENT: ISABELLA DÍAZ : 1940 ADMIT DATE: 05/02/2025 8:14 AM DISCH DATE: RESPONDING PROVIDER #: [id number] PROVIDER RESPONSE TEXT: The patient has severe, third degree malnutrition in chronic illness. QUERY TEXT: Malnutrition Severity with ASPEN Criteria 3M Provider_TH Malnutrition is documented in the Medical [...] as needed on follow up. ASPEN Criteria ([employer] [employer] for Parenteral and Enteral Nutrition), for [...] mass loss; moderate-severe fluid accumulation; measurably reduced orthodontic laboratory technician strength Moderate Malnutrition in Chronic Illness -Energy [...] mass loss; severe fluid accumulation; measurably reduced orthodontic laboratory technician strength [phone] The patient's clinical indicators include: Options provided: [...] from the original note were not included. BATH PROGRESS NOTE Date: 05/04/2025 Author: Mecca Barrios MD Patient ID: Isabella Díaz is a 84 y.o. female : 1940 MR#: [id number] SUBJECTIVE CC: Follow-up right femoral fracture Patient [...] note for right periprosthetic distal femur fracture. Moses Mason is being seen today at bedside with [...] Barrier- ORIF on 05/05 Plan return to [facility] hold ICC following. * Jose Elias [...] a 84 y.o. female : 1940 MR#: [id number] SUBJECTIVE Subjective chart and EMR reviewed events [...] Lying Lying Pulse: 87 83 86 Resp: 16 16 18 Temp: 37 ??C (98.6 ??F) 36.4 ??C [...] CVS: S1 S2 ausculated abdomen, soft NT CUSHION SPRING ASSEMBLER: AO3, NFD, gait not tested Extremities: R [...] Signed Date: 05/02/2025 10:26 ET Workstation ID: [id number] Transcribed By: Self Edit Transcribed Date: 05/02/2025 [...] care proxy with phone number :James Sigala [phone] Discussed with: pt, nursing Kim, case Mx Total time spent 35 minutes doing reviewing the electronic medical record , interviewing patient, gathering information, performing physical exam, formulating plan, explaining management plan to patient, coordinating care with RN and case managmenet, documentation and placing orders. This dictation was performed using LAN-Power speech recognition software. If you have questions, please do not hesitate to reach me on UpMo system or call our hospital at [phone] * Brian Baeza MD - 05/03/2025 2:24 [...] proceed as described above. Elgin Baeza MD [facility] surgical colleagues Orthopaedic Trauma Service Please [...] RN - 05/02/2025 4:25 PM EST 05/02/25 1623 Initial Transition Plan Initial Transition Plan Senior Care Facility Back up Transition Plan Back up Transition plan Senior Care Facility Discharge Planning Living Arrangements Other (Comment) (from [facility]) Type of Residence jail Care Facility Name From [facility] Assistive Devices Walker;Wheelchair Support Systems Children Medication Coverage Has Med Coverage Under Insurance Plan Yes Medication Affordability No concerns related to payment for meds Anticipated Discharge Needs Discipline following for SNF placement Management Nurse Rn Informed Choice Informed Choice Given? Yes Transportation Transportation at discharge Ambulance Met with patient at bedside verified demographics,Ins,PCP.Patient from [facility] was there for [facility] and was to [place] home on 05/03.Patient requesting referral back to [facility] in [facility].ICC to follow for dc planning needs * Kitty Castellanos MD - 05/02/2025 3:15 PM EST Images from the original note were not included. IMAN PROGRESS NOTE Date: 05/02/2025 Author: Kitty Castellanos MD Patient ID: Isabella Díaz is a 84 y.o. female : 1940 MR#: [id number] SUBJECTIVE Subjective Allergies Patient has no known [...] 151/93 (05/02 1411) Heart Rate: 86 (05/02 141) Heart Rate Source: Monitor (05/01 1819) Temp: 36.9 ??C (98.4 ??F) (05/02 1411) Temp Source: Oral (05/02 0753) SpO2: 97 % (05/02 1411) No intake/output data recorded. I/O this shift: In: - Out: 300 [Urine:300] Physical examination Body mass index is 17.14 kg/m??. General, appears stated age , comfortable , not in apparent pain or distress, underbuilt HEENT,ALEXIS neck, Supple chest, limited thoracic excursion, no added sounds, chest is clear CVS: S1 S2 ausculated abdomen, soft NT CUSHION SPRING ASSEMBLER: AO3, NFD, gait not tested Extremities: R [...] Signed Date: 05/02/2025 10:26 ET Workstation ID: [id number] Transcribed By: Self Edit Transcribed Date: 05/02/2025 [...] Health care proxy with phone number :Jovon [phone] Discussed with: pt, nursing, C3 Total time spent 35 minutes doing reviewing the electronic medical record , interviewing patient, gathering information, performing physical exam, formulating plan, explaining management plan to patient, coordinating care with RN and case managmenet, documentation and placing orders. This dictation was performed using LAN-Power speech recognition software. If you have questions, please do not hesitate to reach me on UpMo system or call our hospital at [phone] * Tiffany Mcmanus RN - 05/02/2025 2:23 [...] original note were not included. Medication History Scanning Supervisor Medication history has been obtained for Isabella [...] Thank you, Johana Goode Medication Historian W: [phone] * Aníbal Cortes RN - 05/01/2025 6:20 PM EST ED RN HANDOFF (All Aldana Below Must Be Completed) Reason/Diagnosis for Admission: Type of Admission: [x] Medsurg, [] Telemetry Already in a Hospital Bed: [] Yes / [x] No Room Considerations/Precautions (ex: fever, diarrhea, or any infectious concerns): [] Yes / [x] No Linotype Mechanic: [] Yes / [x] No If YES, Cardiac Rhythm: [] NSR, [] SB, [] ST, [] A-FIB, [] A-Flutter, [] Pacemaker, [] 1st Degree HB, [] 2nd Degree HB, [] 3rd Degree HB Reason for Linotype Mechanic: VS: Visit Vitals BP 118/81 (BP Location: [...] Submitted by and Phone Extension: Aníbal Du [phone] * Lyndsay Figueroa RN - 05/01/2025 5:27 PM EST Pt incontinent of urine. Pt assisted with linen change and sharron care. New brief applied, skin on pt's bottom intact. Pt tolerated well.Call cabrera within reach, pt verbalized understanding of call belluse. * Lyndsay Figueroa RN - 05/01/2025 2:33 PM EST Pt arrives by EMS from [facility]. Pt was doing PT, while coming down [...] route by EMS. History provided by: Patient Roxana Coma Scale Score: 15 Patient History Medical [...] distal end of right femur, initial encounter ([facility] V24, [facility] V28) Medical Decision Making This 84-year-old female [...] distal end of right femur, initial encounter ([facility] V24, [facility] V28): complicated acute illness or injury Procedures Nik Vogt MD 05/01/25 1539 [1] Past Medical History: Diagnosis Date Atrial fibrillation ([facility] V24, [facility] V28) 01/17/2021 DX:Atrial fibrillation ([facility]) CHF (congestive heart failure) (CMS/[facility] V24, CMS/[facility] V28) 01/17/2021 DX:CHF (congestive heart failure) ([facility]) Clostridium difficile diarrhea 03/26/2024 DX:Clostridium difficile diarrhea Depression 01/17/2021 DX:Depression Hypertension NSTEMI (non-ST elevated myocardial infarction) ([facility] V24, [facility] V28) 01/17/2021 DX:NSTEMI (non-ST elevated myocardial infarction) ([facility]); COMMENT: 12/2020 Dr Eller, holter monitor and cardiac cath as outpt. NSTEMI (non-ST elevated myocardial infarction) ([facility] V24, [facility] V28) 01/17/202112/2020 Dr Eller, holter monitor and cardiac cath as outpt. Pubic ramus fracture ([facility] V24, [facility] V28) 11/30/2021 DX:Pubic ramus fracture ([facility]) Takotsubo cardiomyopathy 01/17/2021 DX:Takotsubo cardiomyopathy [2] Past Surgical History: Procedure Laterality Date JOINT REPLACEMENT OTHER SURGICAL HISTORY PROCEDURE: HISTORICAL MITRAL VALVE REPL OTHER SURGICAL HISTORY PROCEDURE: HISTORY OTHER; COMMENT: right humerus fracture TONSILLECTOMY PROCEDURE: HISTORICAL TONSILLECTOMY [3] Family History Problem Relation Name Age of Onset Heart attack Maternal Grandfather Nik Vogt MD 05/01/252107 documented in this encounter H&P Notes * BURAK Cardenas - 05/01/2025 6:47 PM EST Images from the original note were not included. IMAN HISTORY AND PHYSICAL Please contact author [BURAK Cardenas] via Agari/Glanse. Patient: Isabella Díaz Admission Date/Time: 05/01/2025 2:31 PM : 1940 [84 y.o.] Patient's PCP: Lilliam Levy MD Attending Provider: Nik Vogt MD;Miguelangel Gillis CHIEF COMPLAINT Wilcox a pop in her right leg HISTORY [...] will be transferred to the care of [facility] staff for further management of their periprosthetic [...] Signed Date: 05/01/2025 16:38 ET Workstation ID: [id number] Transcribed By: Self Edit Transcribed Date: 05/01/2025 16:37 ET XR Knee 1-2 Views Right Final Result FINDINGS/IMPRESSION: There is a angulated and mildly displaced distal femur fracture. Degenerative changes of the knee. -------- FINAL REPORT -------- Dictated By: Henry Forrester Dictated Date: 05/01/2025 16:39 ET Assigned Physician: Henry Forrester Reviewed and Electronically Signed By: Henry Forrester Signed Date: 05/01/2025 16:39 ET Workstation ID: [id number] Transcribed By: Self Edit Transcribed Date: 05/01/2025 [...] Orders (From admission, onward) Start Ordered 05/01/25 1809 Adult diet [facility]; Cardiac; Cardiac Diet effective now Question Answer Comment Location [facility] Diet Type (req) Cardiac Diet Type (cardiac) Cardiac 05/01/25 1811 [x] Lines, tubes, drains: IV access [x] Medication reconciliation Health Care proxy with Phone number Jovon Díaz her son, [1] Past Medical History: Diagnosis Date ??? Atrial fibrillation ([facility] V24, [facility] V28) 01/17/2021 DX:Atrial fibrillation ([facility]) ??? CHF (congestive heart failure) ([facility] V24, [facility] V28) 01/17/2021 DX:CHF (congestive heart failure) ([facility]) ??? Clostridium difficile diarrhea 03/26/2024 DX:Clostridium difficile diarrhea ??? Depression 01/17/2021 DX:Depression ??? Hypertension ??? NSTEMI (non-ST elevated myocardial infarction) ([facility] V24, CMS/[facility] V28) 01/17/2021 DX:NSTEMI (non-ST elevated myocardial infarction) ([facility]); COMMENT: 12/2020 Dr Eller, holter monitor and cardiac cath as outpt. ??? NSTEMI (non-ST elevated myocardial infarction) ([facility] V24, [facility] V28) 01/17/202112/2020 Dr Eller, holter monitor and cardiac cath as outpt. ??? Pubic ramus fracture (CMS/[facility] V24, [facility]/HCC V28) 11/30/2021 DX:Pubic ramus fracture ([facility]) ??? Takotsubo cardiomyopathy 01/17/2021 DX:Takotsubo cardiomyopathy [2] [...] Diff, etc., who has been admitted to [facility] at least couple of times since early [...] as primary closure of the wound by 04/15. She was also transfused PRBC due to [...] new fracture of the right lower extremity. Pilar will be put on hold. I personally [...] 3. Reapplication VAC dressing Surgeon: ELENITA Matos Belt Loop Machine Operator BURAK Monteiro Anesthesia: HAYA Anesthesiologist: Fermin DUBON Fluids: 300 cc LR [...] sponge application deep. Surgeon: Dr. Gris Mojica. Natural Gas Technician: Adelina Taylor PA-C. The PA was essential [...] DISTAL (R) OPERATIVE NOTE Date: 05/05/2025 Location: [facility] OR Name: Isabella Díaz, : 1940, PREOP-DIAGNOSIS: Complex SHARRON implant fracture right distal femur POSTOP-DIAGNOSIS: Same PROCEDURE: Removal of previous deep hardware, ORIF right distal femur fracture with intramedullary and lateral locked plating SURGEON: Augusta Baeza MD [facility] As possible with this patient, I have [...] confirmed I have signed the consent sheet. IMPORT/EXPORT ANALYST: Sindi Jennings PA-C My registered sales assistant was present for this case and [...] weeks X-rays on arrival Elgin Baeza MD [facility] Surgical Colleagues Orthopaedic Trauma Service Please contact [...] a past medical history of Atrial fibrillation (CMS/HCCV24, CMS/HCC V28) (01/17/2021), CHF (congestive heart failure) (CMS/HCC V24, CMS/HCC V28) (01/17/2021), Clostridium difficile diarrhea (03/26/2024), Depression (01/17/2021), Hypertension, NSTEMI (non-ST elevated myocardial infarction) ([facility] V24, [facility] V28) (01/17/2021), NSTEMI (non-ST elevatedmyocardial infarction) ([facility] V24, [facility] V28) (01/17/2021), Pubic ramus fracture ([facility] V24, [facility] V28) (11/30/2021), and Takotsubo cardiomyopathy (01/17/2021).. The [...] Patient not taking: Reported on 05/01/2025 Historical Provider, multivit-min/iron/folic acid/K (ADULTS MULTIVITAMIN ORAL) Take by [...] major fracture fragments is anatomic. Romeo SUMNER ([id number]) -------- FINAL REPORT -------- Dictated By: Carmen Prado Dictated Date: 05/13/2025 16:08 ET Assigned Physician: Carmen Prado Reviewed and Electronically Signed By: Carmen Prado Signed Date: 05/13/2025 16:13 ET Workstation ID: [id number] Transcribed By: Self Edit Transcribed Date: 05/13/2025 [...] Signed Date: 05/13/2025 13:19 ET Workstation ID: [id number] Transcribed By: Self Edit Transcribed Date: 05/13/2025 13:18 ET Assessment/Plan History Of Present Illness (includes Chief Complaint): Isabella Díaz is a 84 y.o. female who has a past medical history of Atrial fibrillation ([facility], [facility] V28) (01/17/2021), CHF (congestive heart failure) ([facility] V24, [facility] V28) (01/17/2021), Clostridium difficile diarrhea (03/26/2024), Depression (01/17/2021), Hypertension, NSTEMI (non-ST elevated myocardial infarction) (CMS/HCC V24, CMS/HCC V28) (01/17/2021), NSTEMI (non-ST elevatedmyocardial infarction) ([facility] V24, CMS/HCC V28) (01/17/2021), Pubic ramus fracture (CMS/HCC V24, CMS/HCC V28) (11/30/2021), and Takotsubo cardiomyopathy (01/17/2021).. The [...] do not hesitate to contact me via AgariChat with issues or questions Koki Rasmussen MD [1] Past Medical History: Diagnosis Date Atrial fibrillation ([facility] V24, [facility] V28) 01/17/2021 DX:Atrial fibrillation (HCC) CHF (congestive heart failure) ([facility] V24, [facility] V28) 01/17/2021 DX:CHF (congestive heart failure) ([facility]) Clostridium difficile diarrhea 03/26/2024 DX:Clostridium difficile diarrhea Depression 01/17/2021 DX:Depression Hypertension NSTEMI (non-ST elevated myocardial infarction) ([facility] V24, [facility] V28) 01/17/2021 DX:NSTEMI (non-ST elevated myocardial infarction) ([facility]); COMMENT: 12/2020 Dr Eller, holter monitor and cardiac cath as outpt. NSTEMI (non-ST elevated myocardial infarction) ([facility] V24, [facility] V28) 01/17/202112/2020 Dr Eller, holter monitor and cardiac cath as outpt. Pubic ramus fracture ([facility] V24, [facility] V28) 11/30/2021 DX:Pubic ramus fracture ([facility]) Takotsubo cardiomyopathy 01/17/2021 DX:Takotsubo cardiomyopathy [2] Past [...] oral, Nightly, BURAK Davis, 20 mg at 05/14/25 2131 cholecalciferol (VITAMIN D-3) capsule 50,000 Units, 50,000 Units, oral, Weekly, BURAK Davis, 50,000 Units at 05/10/25 0832 cholestyramine (QUESTRAN) 4 gram packet 4 g, 4 g, oral, BID with meals, BURAK Davis, 4 g at 05/14/25 1724 dorzolamide (TRUSOPT) 2 % ophthalmic solution 1 drop, 1 drop, Both Eyes, BID, BURAK Davis,1 drop at 05/15/25826 [START ON 05/16/2025] enoxaparin (LOVENOX) injection 40 [...] intravenous, q6h PRN, BURAK Davis, 4 mg at107/05/241256 oxyCODONE (ROXICODONE) immediate release tablet 2.5 mg, 2.5 mg, oral, q4h PRN, BURAK Davis oxyCODONE (ROXICODONE) immediate release tablet 5 mg, 5 mg, oral, q4h PRN, BURAK Davis, 5 mg at 05/14/252130 PARoxetine (PAXIL) tablet 20 mg, 20 mg, oral, q AM, BURKA Davis, 20 mg at 05/15/25632 polyethylene glycol (MIRALAX) packet 17 g, 17 [...] Ordered 05/05/25 0001 Adult NPO diet Location: [facility]; Diet: NPO- Except for Medications Diet effective midnight Question Answer Comment Location [facility] Diet NPO- Except for Medications 05/04/25 0829 05/04/25 1028 Dietary nutrition supplements Lunch; [facility]; Standard Oral Supplement Continuous Comments: chocolate Question Answer Comment Frequency Lunch Location [facility] Supplements Standard Oral Supplement 05/04/25 1027 05/04/25 0830 Adult diet [facility]; General, Cardiac; Regular; Cardiac Diet effective now Question Answer Comment Location [facility] Diet Type (req) General Diet Type [...] over time, not intentional, but gradual. Appetite INSPECTOR GENERAL: Good Intake INSPECTOR GENERAL: Stable Vitamins/Minerals/Herbs: Pt reports she takes a [...] denies chewing/swallowing issues, last +BM 05/01 per [facility]. Pt reports ongoing gradual weight loss, states last recorded weight was 103, however [facility] weight history shows consistent weights of 90-92lbs [...] of Patient Care: Discussed with RN via [facility] Secure Chat/Haiku. , Care plan discussed with patient/family., and Malnutrition OPA sent to provider via [facility] Monitoring/Evaluation: Fluid/Beverage Intake, Food Intake, Medical Food Supp/Oral Nutrition Supp, Weight, Renal/Electrolyte Profile, Gastrointestinal Profile, Diet Order Follow Up: Nutrition Priority Level: High RD remains available and will continue to follow. Signature: Rut You RD [1] Past Medical History: Diagnosis Date Atrial fibrillation ([facility]/HCC V24, CMS/HCC V28) 01/17/2021 DX:Atrial fibrillation (HCC) CHF (congestive heart failure) (CMS/HCC V24, CMS/HCC V28) 01/17/2021 DX:CHF (congestive heart failure) ([facility]) Clostridium difficile diarrhea 03/26/2024 DX:Clostridium difficile diarrhea Depression 01/17/2021 DX:Depression Hypertension NSTEMI (non-ST elevated myocardial infarction) ([facility] V24, [facility] V28) 01/17/2021 DX:NSTEMI (non-ST elevated myocardial infarction) ([facility]); COMMENT: 12/2020 Dr Eller, holter monitor and cardiac cath as outpt. NSTEMI (non-ST elevated myocardial infarction) ([facility] V24, [facility] V28) 01/17/202112/2020 Dr Eller, holter monitor and cardiac cath as outpt. Pubic ramus fracture ([facility] V24, [facility] V28) 11/30/2021 DX:Pubic ramus fracture ([facility]) Takotsubo cardiomyopathy 01/17/2021 DX:Takotsubo cardiomyopathy [2] Past [...] proceed as described above. Elgin Baeza MD [facility] surgical colleagues Orthopaedic Trauma Service Please [...] EST - 05/22/2025 9:00 AM EST Surgery [facility] Main OR [address] [place] [phone] Gris Mojica MD [address] [place] [id number] DEBRIDEMENT WOUND RIGHT DISTAL FEMUR 05/27/2025 11:00 AM EST Office Visit General Surgery - [place] [address] [facility] [address] [place] [phone] Marcellus Powell, DO [address] [place] [phone] 06/02/2025 3:15 PM EST Appointment Bone Density - [address] [phone] 06/11/2025 2:30 PM EST Office Visit Adult Medicine - [place] [address] [place] [phone] Lilliam Levy MD [address] [place] [address] 08/06/2025 10:50 AM EST Office Visit [facility] - [facility] [address] [facility] [address] [place] [address] Bhaskar Becker MD [address] [place] [address] [place] [phone] Scheduled Orders Name Type Priority Associated Diagnoses [...] Associated Problems Recent Progress Patient-Stated? Author Autogenera myra Goal Care Plan Autogenerated Problem No Sindi Jennings PA Autogenera myra Goal Care Plan Autogenerated Problem No Honorio Jean-Baptiste PA Autogenera myra Goal Care Plan Autogenerated Problem No Honorio Jean-Baptiste PA Autogenera myra Goal Care Plan Autogenerated Problem No Honorio Jean-Baptiste PA documented as of this encounter Procedures * The patient is currently admitted. The information in this section might not be complete until the patient is discharged. Procedure Name Priority Date/Time Associated Diagnosis Comments XR PELVIS 1-2 VIEWS Routine 05/18/2025 2 :36 PM EST OXYGEN THERAPY, ADULT Routine 05/18/2025 2:04 PM EST COMPLETE BLOOD COUNT Routine 05/18/2025 6:21 AM [...] THERAPY, ADULT Routine 05/15/2025 12:41 PM EST WA INCISION & DRAINAGE ABSCESS COMPLICATED/MULTIPLE 05/15/2025 11:49 [...] Routine 05/13/2025 10 :22 AM EST Hematoma CBC WITH AUTO DIFFERENTIAL Routine 05/13/2025 6:01 [...] VIEWS RIGHT Routine 05/05/2025 1:00 PM EST CBC WITH AUTO DIFFERENTIAL Routine 05/05/2025 6:15 [...] Signed Date: 05/19/2025 07:19 ET Workstation ID: [id number] Transcribed By: Self Edit Transcribed Date: 05/19/2025 [...] Signed Date: 05/19/2025 07:19 ET Workstation ID: [id number] Transcribed By: Self Edit Transcribed Date: 05/19/2025 07:14 ET us Honorio SUMNER IMG XR PROCEDURES Final Res ult * (ABNORMAL) Magnesium (05/18/2025 6:21 AM EST) Magnesium 1.8(L) 1.9 - 2.6 mg/dL 05/18/2025 8:01 AM [facility] Blood Venous blood specimen / Unknown Venipuncture / Unknown 05/18/2025 6:21 AM EST 05/18/2025 6:34 AM EST Kobi Franklin MD LAB BLOOD ORDERABLE S Final Result [facility] [address] [place] [address], [place] [phone] * (ABNORMAL) Basic metabolic panel (05/18/2025 6:21 AM EST) Sodium 142 133 - 145 mmol/L 05/18/2025 8:03 AM [facility] Potassium 4.5 3.5 - 5.5 mmol/L 05/18/2025 8:03 AM [facility] Chloride 103 96 - 110 mmol/L 05/18/2025 8:03 AM [facility] CO2 33(H) 21 - 32 mmol/L 05/18/2025 8:03 AM [facility] Anion Gap 6 3 - 11 05/18/2025 8:03 AM [facility] Glucose 82 70 - 100 mg/dL 05/18/2025 8:03 AM [facility] BUN 34(H) 5 - 25 mg/dL 05/18/2025 8:03 AM [facility] Creatinine 0.78 0.50 - 1.10 mg/dL 05/18/2025 8:03 AM [facility] eGFR 76 >=60 mL/min/1. 73m2 05/18/2025 8:03 AM [facility] Comment:Calculation based on the Chronic Kidney Disease Epidemiology Collaboration (CKD-EPI) equation refit without adjustment for race. BUN/Creatinine Ratio 43.6 05/18/2025 8:03 AM [facility] Calcium 8.1(L) 8.5 - 10.5 mg/dL 05/18/2025 8:03 AM [facility] Blood Venous blood specimen / Unknown Venipuncture / Unknown 05/18/2025 6:21 AM EST 05/18/2025 6:34 AM EST Kobi Franklin MD LAB BLOOD ORDERABLE S Final Result [facility] [address] [place] [address], * (ABNORMAL) Complete blood count (05/18/2025 6:21 AM EST) WBC 8.3 4.8 - 10.8 K/mcL LAB HEMETOLOGY METHOD 05/18/2025 6:56 AM [facility] RBC 3.20(L) 3.80 - 4.80 M/mcL LAB HEMETOLOGY METHOD 05/18/2025 6:56 AM [facility] Hemoglobin 9.3(L) 11.5 - 16.0 g/dL LAB HEMETOLOGY METHOD 05/18/2025 6:56 AM [facility] Hematocrit 30.0(L) 35.0 - 47.0 % LAB HEMETOLOGY METHOD 05/18/2025 6:56 AM [facility] MCV 94.6 79.0 - 98.0 FL LAB HEMETOLOGY METHOD 05/18/2025 6:56 AM [facility] MCH 29.3 27.0 - 32.0 pcg LAB HEMETOLOGY METHOD 05/18/2025 6:56 AM [facility] MCHC 31.0(L) 32.0 - 37.0 g/dL LAB HEMETOLOGY METHOD 05/18/2025 6:56 AM EST [facility] RDW 16.9(H) 11.0 - 15.0 % LAB HEMETOLOGY METHOD 05/18/2025 6:56 AM EST [facility] Platelets 441(H) 130 - 400 K/mcL LAB HEMETOLOGY METHOD 05/18/2025 6:56 AM [facility] MPV 8.8 7.0 - 11.0 FL LAB HEMETOLOGY METHOD 05/18/2025 6:56 AM EST [facility] NRBC 0.0 <1.0 % LAB HEMETOLOGY METHOD 05/18/2025 6:56 AM EST [facility] NRBC Absolute 0.00 <0.10 K/mcL LAB HEMETOLOGY METHOD 05/18/2025 6:56 AM [facility] Blood Venous blood specimen / Unknown Venipuncture / Unknown 05/18/2025 6:21 AM EST 05/18/2025 6:34 AM EST us Kobi Franklin MD LAB BLOOD ORDERABLE S Final Result [facility] [address] [place] [address], * SST tube (05/17/2025 8:56 AM EST) Extra Tube Hold for add-ons. 05/17/2025 11:01 AM EST [facility] Comment:Auto resulted. Blood Venous blood specimen / Unknown Venipuncture / Unknown 05/17/2025 8:56 AM EST 05/17/2025 9:01 AM EST us Kobi Franklin MD LAB BLOOD ORDERABLE S Final Result [facility] [address] [place] [address], * (ABNORMAL) CBC auto differential (05/17/2025 8:56 AM EST) [facility] WBC 9.5 4.8 - 10.8 K/mcL LAB HEMETOLOGY METHOD 05/17/2025 9:15 AM [facility] RBC 3.40(L) 3.80 - 4.80 M/mcL LAB HEMETOLOGY METHOD 05/17/2025 9:15 AM [facility] Hemoglobin 9.7(L) 11.5 - 16.0 g/dL LAB HEMETOLOGY METHOD 05/17/2025 9:15 AM [facility] Hematocrit 32.2(L) 35.0 - 47.0 % LAB HEMETOLOGY METHOD 05/17/2025 9:15 AM [facility] MCV 95.8 79.0 - 98.0 FL LAB HEMETOLOGY METHOD 05/17/2025 9:15 AM [facility] MCH 28.9 27.0 - 32.0 pcg LAB HEMETOLOGY METHOD 05/17/2025 9:15 AM [facility] MCHC 30.1(L) 32.0 - 37.0 g/dL LAB HEMETOLOGY METHOD 05/17/2025 9:15 AM [facility] RDW 17.2(H) 11.0 - 15.0 % LAB HEMETOLOGY METHOD 05/17/2025 9:15 AM [facility] Platelets 469(H) 130 - 400 K/mcL LAB HEMETOLOGY METHOD 05/17/2025 9:15 AM [facility] MPV 8.4 7.0 - 11.0 FL LAB HEMETOLOGY METHOD 05/17/2025 9:15 AM [facility] NRBC 0.0 <1.0 % LAB HEMETOLOGY METHOD 05/17/2025 9:15 AM [facility] NRBC Absolute 0.00 <0.10 K/mcL LAB HEMETOLOGY METHOD 05/17/2025 9:15 AM [facility] Neutrophils Relative 74.7 % LAB HEMETOLOGY METHOD 05/17/2025 9:15 AM [facility] Lymphocytes Relative 13.1 % LAB HEMETOLOGY METHOD 05/17/2025 9:15 AM [facility] Monocytes Relative 8.6 % LAB HEMETOLOGY METHOD 05/17/2025 9:15 AM [facility] Eosinophils Relative 2.2 % LAB HEMETOLOGY METHOD 05/17/2025 9:15 AM [facility] Basophils Relative 0.7 % LAB HEMETOLOGY METHOD 05/17/2025 9:15 AM [facility] Immature Granulocytes Relative 0.7 % LAB HEMETOLOGY METHOD 05/17/2025 9:15 AM [facility] Neutrophils Absolute 7.08(H) 1.50 - 7.00 K/mcL LAB HEMETOLOGY METHOD 05/17/2025 9:15 AM [facility] Lymphocytes Absolute 1.24 1.00 - 5.00 K/mcL LAB HEMETOLOGY METHOD 05/17/2025 9:15 AM [facility] Monocytes Absolute 0.82 0.20 - 1.00 K/mcL LAB HEMETOLOGY METHOD 05/17/2025 9:15 AM [facility] Eosinophils Absolute 0.21 0.00 - 0.50 K/mcL LAB HEMETOLOGY METHOD 05/17/2025 9:15 AM [facility] Basophils Absolute 0.07 0.00 - 0.20 K/mcL LAB HEMETOLOGY METHOD 05/17/2025 9:15 AM [facility] Immature Granulocytes Absolute 0.07(H) 0.00 - 0.03 K/mcL LAB HEMETOLOGY METHOD 05/17/2025 9:15 AM EST [facility] Blood Venous blood specimen / Unknown Venipuncture / Unknown 05/17/2025 8:56 AM EST 05/17/2025 9:00 AM EST Gris Mojica MD LAB BLOOD ORDERABLES Final Resul t Performing Organization Address City/[facility]/ZIP Co de Phone Number [facility] [address] [place] [address], [place] [phone] * (ABNORMAL) Magnesium (05/16/2025 6:31 AM EST) Magnesium 1.7(L) 1.9 - 2.6 mg/dL 05/16/2025 7:16 AM EST [facility] Blood Venous blood specimen / Unknown Venipuncture / Unknown 05/16/2025 6:31 AM EST 05/16/2025 6:39 AM EST Kobi Franklin MD LAB BLOOD ORDERABLE S Final Result Performing Organization Address City/[facility]/ZIP Co de Phone Number [facility] [address] [place] [address], [place] [phone] * (ABNORMAL) Basic metabolic panel (05/16/2025 6:31 AM EST) Sodium 143 133 - 145 mmol/L 05/16/2025 7:16 AM EST [facility] Potassium 4.5 3.5 - 5.5 mmol/L 05/16/2025 7:16 AM EST [facility] Chloride 104 96 - 110 mmol/L 05/16/2025 7:16 AM EST [facility] CO2 31 21 - 32 mmol/L 05/16/2025 7:16 AM EST [facility] Anion Gap 8 3 - 11 05/16/2025 7:16 AM [facility] Glucose 97 70 - 100 mg/dL 05/16/2025 7:16 AM [facility] BUN 47(H) 5 - 25 mg/dL 05/16/2025 7:16 AM [facility] Creatinine 0.69 0.50 - 1.10 mg/dL 05/16/2025 7:16 AM [facility] eGFR 87 >=60 mL/min/1. 73m2 05/16/2025 7:16 AM [facility] Comment:Calculation based on the Chronic Kidney Disease Epidemiology Collaboration (CKD-EPI) equation refit without adjustment for race. BUN/Creatinine Ratio 68.1 05/16/2025 7:16 AM [facility] Calcium 8.0(L) 8.5 - 10.5 mg/dL 05/16/2025 7:16 AM [facility] Blood Venous blood specimen / Unknown Venipuncture / Unknown 05/16/2025 6:31 AM EST 05/16/2025 6:39 AM EST Kobi Franklin MD LAB BLOOD ORDERABLE S Final Result [facility] [address] [place] [address], * (ABNORMAL) Complete blood count (05/16/2025 6:31 AM EST) WBC 12.1(H) 4.8 - 10.8 K/mcL LAB HEMETOLOGY METHOD 05/16/2025 6:56 AM [facility] RBC 3.10(L) 3.80 - 4.80 M/mcL LAB HEMETOLOGY METHOD 05/16/2025 6:56 AM [facility] Hemoglobin 9.0(L) 11.5 - 16.0 g/dL LAB HEMETOLOGY METHOD 05/16/2025 6:56 AM [facility] Hematocrit 29.4(L) 35.0 - 47.0 % LAB HEMETOLOGY METHOD 05/16/2025 6:56 AM [facility] MCV 94.8 79.0 - 98.0 FL LAB HEMETOLOGY METHOD 05/16/2025 6:56 AM [facility] MCH 29.0 27.0 - 32.0 pcg LAB HEMETOLOGY METHOD 05/16/2025 6:56 AM [facility] MCHC 30.6(L) 32.0 - 37.0 g/dL LAB HEMETOLOGY METHOD 05/16/2025 6:56 AM [facility] RDW 17.0(H) 11.0 - 15.0 % LAB HEMETOLOGY METHOD 05/16/2025 6:56 AM [facility] Platelets 461(H) 130 - 400 K/mcL LAB HEMETOLOGY METHOD 05/16/2025 6:56 AM [facility] MPV 8.9 7.0 - 11.0 FL LAB HEMETOLOGY METHOD 05/16/2025 6:56 AM [facility] NRBC 0.0 <1.0 % LAB HEMETOLOGY METHOD 05/16/2025 6:56 AM [facility] NRBC Absolute 0.00 <0.10 K/mcL LAB HEMETOLOGY METHOD 05/16/2025 6:56 AM [facility] Blood Venous blood specimen / Unknown Venipuncture / Unknown 05/16/2025 6:31 AM EST 05/16/2025 6:39 AM EST us Kobi Franklin MD LAB BLOOD ORDERABLE S Final Result [facility] [address] [place] [address], [place] [phone] * Phosphorus (05/16/2025 6:31 AM EST) Phosphorus 3.3 2.5 - 4.5 mg/dL 05/16/2025 7:17 AM EST [facility] Blood Venous blood specimen / Unknown Venipuncture / Unknown 05/16/2025 6:31 AM EST 05/16/2025 6:39 AM EST Kobi Franklin MD LAB BLOOD ORDERABLE S Final Result [facility] [address] [place] [address], * Culture urine (05/15/2025 4:37 PM EST) Pathologist [facility] Culture, Urine <10,000 cfu/ml, insignificant count, no further workup. 05/16/2025 2:41 PM EST [facility] Urine Urine specimen obtained by clean catch procedure / Unknown Non-blood Collection / Unknown 05/15/2025 4:37 PM EST 05/15/2025 6:16 PM EST Kamilla SUMNER LAB MICROBIOLOGY - GENERAL ORDER NISH Final Result [facility] [address] [place] [address], [place] [phone] * Solorzano urine culture tube (05/15/2025 4:37 PM EST) Extra Tube Hold for add-ons. 05/15/2025 7:01 PM EST [facility] Comment:Auto resulted. Urine Urine specimen obtained by clean catch procedure / Unknown Non-blood Collection / Unknown 05/15/2025 4:37 PM EST 05/15/2025 5:26 PM EST us Kamilla SUMNER LAB URINE ORDERABLES Final Resul t [facility] [address] [place] [address], [place] [phone] * (ABNORMAL) Urinalysis with reflex microscopic and culture (05/15/2025 4:37 PM EST) Specific [place] Urine 1.017 1.003 - 1.030 LAB URINALYSIS - AUTOMATED METHOD 05/15/2025 6:16 PM [facility] pH, Urine 7.0 5.0 - 8.0 pH LAB URINALYSIS - AUTOMATED METHOD 05/15/2025 6:16 PM [facility] Leukocytes, Urine Trace(A) Negative LAB URINALYSIS - AUTOMATED METHOD 05/15/2025 6:16 PM [facility] Nitrite, Urine Negative Negative LAB URINALYSIS - AUTOMATED METHOD 05/15/2025 6:16 PM [facility] Protein, Urine Negative <=Trace mg/dL LAB URINALYSIS - AUTOMATED METHOD 05/15/2025 6:16 PM [facility] Glucose, Urine Negative Negative mg/dL LAB URINALYSIS - AUTOMATED METHOD 05/15/2025 6:16 PM [facility] Ketones, Urine Negative Negative mg/dL LAB URINALYSIS - AUTOMATED METHOD 05/15/2025 6:16 PM [facility] Urobilinogen, Urine 0.2 0.2 - 1.0 mg/dL LAB URINALYSIS - AUTOMATED METHOD 05/15/2025 6:16 PM [facility] Bilirubin, Urine Negative Negative LAB URINALYSIS - AUTOMATED METHOD 05/15/2025 6:16 PM [facility] Blood, Urine Negative Negative LAB URINALYSIS - AUTOMATED METHOD 05/15/2025 6:16 PM [facility] RBC, Urine 0 0 - 4 /HPF LAB URINALYSIS - AUTOMATED METHOD 05/15/2025 6:16 PM [facility] WBC, Urine 5(H) 0 - 4 /HPF LAB URINALYSIS - AUTOMATED METHOD 05/15/2025 6:16 PM [facility] Squamous Epithelial, Urine 20 0 - 60 /LPF LAB URINALYSIS - AUTOMATED METHOD 05/15/2025 6:16 PM [facility] Bacteria, Urine Negative Negative /HPF LAB URINALYSIS - AUTOMATED METHOD 05/15/2025 6:16 PM [facility] Hyaline Casts, Urine 0 0 - 3 /LPF LAB URINALYSIS - AUTOMATED METHOD 05/15/2025 6:16 PM [facility] Urine Urine specimen obtained by clean catch procedure / Unknown Non-blood Collection / Unknown 05/15/2025 4:37 PM EST 05/15/2025 5:26 PM EST us Kamilla SUMNER LAB URINE ORDERABLES Final Resul t [facility] [address] [place] [address], * (ABNORMAL) CBC auto differential (05/15/2025 5:51 AM EST) WBC 8.8 4.8 - 10.8 K/mcL LAB HEMETOLOGY METHOD 05/15/2025 6:44 AM [facility] RBC 3.10(L) 3.80 - 4.80 M/mcL LAB HEMETOLOGY METHOD 05/15/2025 6:44 AM [facility] Hemoglobin 9.1(L) 11.5 - 16.0 g/dL LAB HEMETOLOGY METHOD 05/15/2025 6:44 AM [facility] Hematocrit 29.4(L) 35.0 - 47.0 % LAB HEMETOLOGY METHOD 05/15/2025 6:44 AM [facility] MCV 94.5 79.0 - 98.0 FL LAB HEMETOLOGY METHOD 05/15/2025 6:44 AM [facility] MCH 29.3 27.0 - 32.0 pcg LAB HEMETOLOGY METHOD 05/15/2025 6:44 AM [facility] MCHC 31.0(L) 32.0 - 37.0 g/dL LAB HEMETOLOGY METHOD 05/15/2025 6:44 AM [facility] RDW 17.1(H) 11.0 - 15.0 % LAB HEMETOLOGY METHOD 05/15/2025 6:44 AM [facility] Platelets 454(H) 130 - 400 K/mcL LAB HEMETOLOGY METHOD 05/15/2025 6:44 AM [facility] MPV 9.0 7.0 - 11.0 FL LAB HEMETOLOGY METHOD 05/15/2025 6:44 AM [facility] NRBC 0.0 <1.0 % LAB HEMETOLOGY METHOD 05/15/2025 6:44 AM [facility] NRBC Absolute 0.00 <0.10 K/mcL LAB HEMETOLOGY METHOD 05/15/2025 6:44 AM [facility] Neutrophils Relative 64.6 % LAB HEMETOLOGY METHOD 05/15/2025 6:44 AM [facility] Lymphocytes Relative 16.3 % LAB HEMETOLOGY METHOD 05/15/2025 6:44 AM [facility] Monocytes Relative 13.6 % LAB HEMETOLOGY METHOD 05/15/2025 6:44 AM [facility] Eosinophils Relative 3.3 % LAB HEMETOLOGY METHOD 05/15/2025 6:44 AM [facility] Basophils Relative 0.8 % LAB HEMETOLOGY METHOD 05/15/2025 6:44 AM EST [facility] Immature Granulocytes Relative 1.4 % LAB HEMETOLOGY METHOD 05/15/2025 6:44 AM EST [facility] Neutrophils Absolute 5.69 1.50 - 7.00 K/mcL LAB HEMETOLOGY METHOD 05/15/2025 6:44 AM EST [facility] Lymphocytes Absolute 1.43 1.00 - 5.00 K/mcL LAB HEMETOLOGY METHOD 05/15/2025 6:44 AM EST [facility] Monocytes Absolute 1.20(H) 0.20 - 1.00 K/mcL LAB HEMETOLOGY METHOD 05/15/2025 6:44 AM EST [facility] Eosinophils Absolute 0.29 0.00 - 0.50 K/mcL LAB HEMETOLOGY METHOD 05/15/2025 6:44 AM EST [facility] Basophils Absolute 0.07 0.00 - 0.20 K/mcL LAB HEMETOLOGY METHOD 05/15/2025 6:44 AM EST [facility] Immature Granulocytes Absolute 0.12(H) 0.00 - 0.03 K/mcL LAB HEMETOLOGY METHOD 05/15/2025 6:44 AM [facility] Blood Venous blood specimen / Unknown Venipuncture / Unknown 05/15/2025 5:51 AM EST 05/15/2025 6:16 AM EST us Amanda Woods MD LAB BLOOD ORDERABLES Final Resul t [facility] [address] [place] [address], * (ABNORMAL) Basic metabolic panel (05/15/2025 5:51 AM EST) Sodium 143 133 - 145 mmol/L 05/15/2025 7:18 AM EST [facility] Potassium 4.7 3.5 - 5.5 mmol/L 05/15/2025 7:18 AM [facility] Chloride 104 96 - 110 mmol/L 05/15/2025 7:18 AM [facility] CO2 33(H) 21 - 32 mmol/L 05/15/2025 7:18 AM [facility] Anion Gap 6 3 - 11 05/15/2025 7:18 AM [facility] Glucose 79 70 - 100 mg/dL 05/15/2025 7:18 AM [facility] BUN 35(H) 5 - 25 mg/dL 05/15/2025 7:18 AM [facility] Creatinine 0.87 0.50 - 1.10 mg/dL 05/15/2025 7:18 AM [facility] eGFR 67 >=60 mL/min/1. 73m2 05/15/2025 7:18 AM [facility] Comment:Calculation based on the Chronic Kidney Disease Epidemiology Collaboration (CKD-EPI) equation refit without adjustment for race. BUN/Creatinine Ratio 40.2 05/15/2025 7:18 AM [facility] Calcium 7.9(L) 8.5 - 10.5 mg/dL 05/15/2025 7:18 AM [facility] Blood Venous blood specimen / Unknown Venipuncture / Unknown 05/15/2025 5:51 AM EST 05/15/2025 6:16 AM EST us Amanda Woods MD LAB BLOOD ORDERABLES Final Resul t [facility] [address] [place] [address], * (ABNORMAL) Complete blood count (05/14/2025 7:07 AM EST) WBC 12.0(H) 4.8 - 10.8 K/mcL LAB HEMETOLOGY METHOD 05/14/2025 7:59 AM [facility] RBC 3.40(L) 3.80 - 4.80 M/[facility] LAB HEMETOLOGY METHOD 05/14/2025 7:59 AM [facility] Hemoglobin 9.9(L) 11.5 - 16.0 g/dL LAB HEMETOLOGY METHOD 05/14/2025 7:59 AM [facility] Hematocrit 31.9(L) 35.0 - 47.0 % LAB HEMETOLOGY METHOD 05/14/2025 7:59 AM [facility] MCV 94.9 79.0 - 98.0 FL LAB HEMETOLOGY METHOD 05/14/2025 7:59 AM [facility] MCH 29.5 27.0 - 32.0 pcg LAB HEMETOLOGY METHOD 05/14/2025 7:59 AM [facility] MCHC 31.0(L) 32.0 - 37.0 g/dL LAB HEMETOLOGY METHOD 05/14/2025 7:59 AM [facility] RDW 17.2(H) 11.0 - 15.0 % LAB HEMETOLOGY METHOD 05/14/2025 7:59 AM [facility] Platelets 470(H) 130 - 400 K/mcL LAB HEMETOLOGY METHOD 05/14/2025 7:59 AM [facility] MPV 9.0 7.0 - 11.0 FL LAB HEMETOLOGY METHOD 05/14/2025 7:59 AM [facility] NRBC 0.0 <1.0 % LAB HEMETOLOGY METHOD 05/14/2025 7:59 AM [facility] NRBC Absolute 0.00 <0.10 K/mcL LAB HEMETOLOGY METHOD 05/14/2025 7:59 AM [facility] Blood Venous blood specimen / Unknown Venipuncture / Unknown 05/14/2025 7:07 AM EST 05/14/2025 7:44 AM EST us Adelina SUMNER LAB BLOOD ORDERABLES Final R esult [facility] [address] [place] [address], * (ABNORMAL) Basic metabolic panel (05/14/2025 7:07 AM EST) Sodium 139 133 - 145 mmol/L 05/14/2025 8:22 AM [facility] Potassium 4.2 3.5 - 5.5 mmol/L 05/14/2025 8:22 AM [facility] Chloride 100 96 - 110 mmol/L 05/14/2025 8:22 AM [facility] CO2 31 21 - 32 mmol/L 05/14/2025 8:22 AM [facility] Anion Gap 8 3 - 11 05/14/2025 8:22 AM [facility] Glucose 93 70 - 100 mg/dL 05/14/2025 8:22 AM [facility] BUN 25 5 - 25 mg/dL 05/14/2025 8:22 AM [facility] Creatinine 0.71 0.50 - 1.10 mg/dL 05/14/2025 8:22 AM [facility] eGFR 85 >=60 mL/min/1. 73m2 05/14/2025 8:22 AM [facility] Comment:Calculation based on the Chronic Kidney Disease Epidemiology Collaboration (CKD-EPI) equation refit without adjustment for race. BUN/Creatinine Ratio 35.2 05/14/2025 8:22 AM [facility] Calcium 8.3(L) 8.5 - 10.5 mg/dL 05/14/2025 8:22 AM EST [facility] Blood Venous blood specimen / Unknown Venipuncture / Unknown 05/14/2025 7:07 AM EST 05/14/2025 7:43 AM EST us Adelina SUMNER LAB BLOOD ORDERABLES Final R esult [facility] [address] [place] [address], * XR Femur 1 View Right (05/13/2025 11:58 AM EST) Anatomical Region Laterality Modality Lower Extremities, Femur Right Radiogr aphic Imaging 05/13/2025 4:08 PM EST Impressions 05/13/2025 4:13 PM EST Impression: New postop changes in the distal femur, with 2 additional sideplates placed, traversing the acute distal femoral diaphyseal fracture. Alignment of the major fracture fragments is anatomic. Romeo SUMNER ([id number]) -------- FINAL REPORT -------- Dictated By: Carmen Prado Dictated Date: 05/13/2025 16:08 ET Assigned Physician: Carmen Prado Reviewed and Electronically Signed By: Carmen Prado Signed Date: 05/13/2025 16:13 ET Workstation ID: [id number] Transcribed By: Self Edit Transcribed Date: 05/13/2025 [...] [facility] 11:40 [facility] The patient has undergone interim open reduction [...] major fracture fragments is anatomic. Romeo SUMNER ([id number]) -------- FINAL REPORT -------- Dictated By: Carmen Prado Dictated Date: 05/13/2025 16:08 ET Assigned Physician: Carmen Prado Reviewed and Electronically Signed By: Carmen Prado Signed Date: 05/13/2025 16:13 ET Workstation ID: [id number] Transcribed By: Self Edit Transcribed Date: 05/13/2025 16:08 ET us Adelina SUMNER IMG XR PROCEDURES [...] Signed Date: 05/13/2025 13:19 ET Workstation ID: [id number] Transcribed By: Self Edit Transcribed Date: 05/13/2025 [...] Signed Date: 05/13/2025 13:19 ET Workstation ID: [id number] Transcribed By: Self Edit Transcribed Date: 05/13/2025 13:18 ET us Adelina SUMNER IMG XR PROCEDURES Final Resu lt * (ABNORMAL) Culture wound deep (05/13/2025 10:25 AM EST) Culture, Wound Enterobacter cloacae complex(A) SAUL 05/16/2025 9:47 AM EST [facility] Comment: The organism value for this result has been updated. These results have been appended to the previously preliminary verified report. This is an edited result. Previous organism was Gram negative bacilli on 05/14/2025 at 1332 EST. Culture, Wound Citrobacter sedlakii(A) SAUL 05/16/2025 9:47 AM EST [facility] Comment: The organism value for this result has been updated. These results have been appended to the previously preliminary verified report. Gram Stain Result Few Polymorphonuclear leukocytes 05/16/2025 9:47 AM EST [facility] Gram Stain Result No epithelial cells seen 05/16/2025 9:47 AM [facility] Gram Stain Result No organisms seen 05/16/2025 9:47 AM [facility] Swab Right hip region structure [...] MICROBIOLOGY - GENERAL ORDER NISH Final Result [facility] [address] [place] [address], * (ABNORMAL) Culture wound deep (05/13/2025 10:24 AM EST) Culture, Wound Enterobacter cloacae complex(A) SAUL 05/16/2025 9:45 AM EST [facility] Comment: The organism value for this result has been updated. These results have been appended to the previously preliminary verified report. This is an edited result. Previous organism was Gram negative bacilli on 05/14/2025 at 1327 EST. Gram Stain Result Few Polymorphonuclear leukocytes 05/16/2025 9:45 AM EST [facility] Gram Stain Result No epithelial cells seen 05/16/2025 9:45 AM EST [facility] Gram Stain Result No organisms seen 05/16/2025 9:45 AM EST [facility] Swab Right hip region structure [...] MICROBIOLOGY - GENERAL ORDER NISH Final Result [facility] [address] [place] [address], [place] [phone] * (ABNORMAL) Culture wound deep (05/13/2025 10:22 AM EST) Culture, Wound Enterobacter cloacae complex(A) SAUL 05/16/2025 9:57 AM EST [facility] Comment: The organism value for this result has been updated. These results have been appended to the previously preliminary verified report. This is an edited result. Previous organism was Gram negative bacilli on 05/14/2025 at 1337 EST. Culture, Wound Citrobacter sedlakii(A) SAUL 05/16/2025 9:57 AM EST [facility] Comment: The organism value for this result has been updated. These results have been appended to the previously preliminary verified report. Gram Stain Result Few Polymorphonuclear leukocytes 05/16/2025 9:57 AM EST [facility] Gram Stain Result No epithelial cells seen 05/16/2025 9:57 AM EST [facility] Gram Stain Result No organisms seen 05/16/2025 9:57 AM [facility] Swab Structure of right thigh [...] MICROBIOLOGY - GENERAL ORDER NISH Final Result [facility] [address] [place] [address], * (ABNORMAL) CBC auto differential (05/13/2025 6:01 AM EST) [facility] Signature WBC 9.8 4.8 - 10.8 K/mcL LAB HEMETOLOGY METHOD 05/13/2025 6:44 AM EST [facility] RBC 3.50(L) 3.80 - 4.80 M/mcL LAB HEMETOLOGY METHOD 05/13/2025 6:44 AM EST [facility] Hemoglobin 10.2(L) 11.5 - 16.0 g/dL LAB HEMETOLOGY METHOD 05/13/2025 6:44 AM [facility] Hematocrit 32.9(L) 35.0 - 47.0 % LAB HEMETOLOGY METHOD 05/13/2025 6:44 AM [facility] MCV 94.3 79.0 - 98.0 FL LAB HEMETOLOGY METHOD 05/13/2025 6:44 AM [facility] MCH 29.2 27.0 - 32.0 pcg LAB HEMETOLOGY METHOD 05/13/2025 6:44 AM [facility] MCHC 31.0(L) 32.0 - 37.0 g/dL LAB HEMETOLOGY METHOD 05/13/2025 6:44 AM [facility] RDW 17.2(H) 11.0 - 15.0 % LAB HEMETOLOGY METHOD 05/13/2025 6:44 AM [facility] Platelets 463(H) 130 - 400 K/mcL LAB HEMETOLOGY METHOD 05/13/2025 6:44 AM [facility] MPV 9.3 7.0 - 11.0 FL LAB HEMETOLOGY METHOD 05/13/2025 6:44 AM [facility] NRBC 0.0 <1.0 % LAB HEMETOLOGY METHOD 05/13/2025 6:44 AM [facility] NRBC Absolute 0.00 <0.10 K/mcL LAB HEMETOLOGY METHOD 05/13/2025 6:44 AM [facility] Neutrophils Relative 65.3 % LAB HEMETOLOGY METHOD 05/13/2025 6:44 AM [facility] Lymphocytes Relative 16.2 % LAB HEMETOLOGY METHOD 05/13/2025 6:44 AM [facility] Monocytes Relative 12.7 % LAB HEMETOLOGY METHOD 05/13/2025 6:44 AM EST [facility] Eosinophils Relative 3.8 % LAB HEMETOLOGY METHOD 05/13/2025 6:44 AM EST [facility] Basophils Relative 0.9 % LAB HEMETOLOGY METHOD 05/13/2025 6:44 AM [facility] Immature Granulocytes Relative 1.1 % LAB HEMETOLOGY METHOD 05/13/2025 6:44 AM EST [facility] Neutrophils Absolute 6.43 1.50 - 7.00 K/mcL LAB HEMETOLOGY METHOD 05/13/2025 6:44 AM EST [facility] Lymphocytes Absolute 1.59 1.00 - 5.00 K/mcL LAB HEMETOLOGY METHOD 05/13/2025 6:44 AM [facility] Monocytes Absolute 1.25(H) 0.20 - 1.00 K/mcL LAB HEMETOLOGY METHOD 05/13/2025 6:44 AM EST [facility] Eosinophils Absolute 0.37 0.00 - 0.50 K/mcL LAB HEMETOLOGY METHOD 05/13/2025 6:44 AM EST [facility] Basophils Absolute 0.09 0.00 - 0.20 K/mcL LAB HEMETOLOGY METHOD 05/13/2025 6:44 AM [facility] Immature Granulocytes Absolute 0.11(H) 0.00 - 0.03 K/mcL LAB HEMETOLOGY METHOD 05/13/2025 6:44 AM EST [facility] Blood Venous blood specimen / Unknown Venipuncture / Unknown 05/13/2025 6:01 AM EST 05/13/2025 6:18 AM EST us Amanda Woods MD LAB BLOOD ORDERABLES Final Resul t [facility] [address] [place] [address], * (ABNORMAL) Basic metabolic panel (05/13/2025 6:01 AM EST) Sodium 143 133 - 145 mmol/L 05/13/2025 7:30 AM [facility] Potassium 4.6 3.5 - 5.5 mmol/L 05/13/2025 7:30 AM [facility] Chloride 102 96 - 110 mmol/L 05/13/2025 7:30 AM [facility] CO2 32 21 - 32 mmol/L 05/13/2025 7:30 AM [facility] Anion Gap 9 3 - 11 05/13/2025 7:30 AM [facility] Glucose 84 70 - 100 mg/dL 05/13/2025 7:30 AM [facility] BUN 27(H) 5 - 25 mg/dL 05/13/2025 7:30 AM [facility] Creatinine 0.74 0.50 - 1.10 mg/dL 05/13/2025 7:30 AM [facility] eGFR 81 >=60 mL/min/1. 73m2 05/13/2025 7:30 AM [facility] Comment:Calculation based on the Chronic Kidney Disease Epidemiology Collaboration (CKD-EPI) equation refit without adjustment for race. BUN/Creatinine Ratio 36.5 05/13/2025 7:30 AM [facility] Calcium 8.4(L) 8.5 - 10.5 mg/dL 05/13/2025 7:30 AM [facility] Blood Venous blood specimen / Unknown Venipuncture / Unknown 05/13/2025 6:01 AM EST 05/13/2025 6:17 AM EST us Amanda Woods MD LAB BLOOD ORDERABLES Final Resul t [facility] [address] [place] [address], * (ABNORMAL) CBC auto differential (05/12/2025 5:45 AM EST) [facility] WBC 8.1 4.8 - 10.8 K/mcL LAB HEMETOLOGY METHOD 05/12/2025 6:52 AM [facility] RBC 3.40(L) 3.80 - 4.80 M/mcL LAB HEMETOLOGY METHOD 05/12/2025 6:52 AM [facility] Hemoglobin 9.9(L) 11.5 - 16.0 g/dL LAB HEMETOLOGY METHOD 05/12/2025 6:52 AM [facility] Hematocrit 31.4(L) 35.0 - 47.0 % LAB HEMETOLOGY METHOD 05/12/2025 6:52 AM [facility] MCV 93.5 79.0 - 98.0 FL LAB HEMETOLOGY METHOD 05/12/2025 6:52 AM [facility] MCH 29.5 27.0 - 32.0 pcg LAB HEMETOLOGY METHOD 05/12/2025 6:52 AM [facility] MCHC 31.5(L) 32.0 - 37.0 g/dL LAB HEMETOLOGY METHOD 05/12/2025 6:52 AM [facility] RDW 17.6(H) 11.0 - 15.0 % LAB HEMETOLOGY METHOD 05/12/2025 6:52 AM [facility] Platelets 407(H) 130 - 400 K/mcL LAB HEMETOLOGY METHOD 05/12/2025 6:52 AM [facility] MPV 9.4 7.0 - 11.0 FL LAB HEMETOLOGY METHOD 05/12/2025 6:52 AM [facility] NRBC 0.0 <1.0 % LAB HEMETOLOGY METHOD 05/12/2025 6:52 AM [facility] NRBC Absolute 0.00 <0.10 K/mcL LAB HEMETOLOGY METHOD 05/12/2025 6:52 AM [facility] Neutrophils Relative 66.4 % LAB HEMETOLOGY METHOD 05/12/2025 6:52 AM [facility] Lymphocytes Relative 14.2 % LAB HEMETOLOGY METHOD 05/12/2025 6:52 AM [facility] Monocytes Relative 13.5 % LAB HEMETOLOGY METHOD 05/12/2025 6:52 AM [facility] Eosinophils Relative 4.1 % LAB HEMETOLOGY METHOD 05/12/2025 6:52 AM [facility] Basophils Relative 0.6 % LAB HEMETOLOGY METHOD 05/12/2025 6:52 AM [facility] Immature Granulocytes Relative 1.2 % LAB HEMETOLOGY METHOD 05/12/2025 6:52 AM [facility] Neutrophils Absolute 5.34 1.50 - 7.00 K/mcL LAB HEMETOLOGY METHOD 05/12/2025 6:52 AM [facility] Lymphocytes Absolute 1.14 1.00 - 5.00 K/mcL LAB HEMETOLOGY METHOD 05/12/2025 6:52 AM [facility] Monocytes Absolute 1.09(H) 0.20 - 1.00 K/mcL LAB HEMETOLOGY METHOD 05/12/2025 6:52 AM [facility] Eosinophils Absolute 0.33 0.00 - 0.50 K/mcL LAB HEMETOLOGY METHOD 05/12/2025 6:52 AM [facility] Basophils Absolute 0.05 0.00 - 0.20 K/mcL LAB HEMETOLOGY METHOD 05/12/2025 6:52 AM [facility] Immature Granulocytes Absolute 0.10(H) 0.00 - 0.03 K/mcL LAB HEMETOLOGY METHOD 05/12/2025 6:52 AM [facility] Blood Venous blood specimen / Unknown Venipuncture / Unknown 05/12/2025 5:45 AM EST 05/12/2025 6:28 AM EST us Amanda Woods MD LAB BLOOD ORDERABLES Final Resul t [facility] [address] [place] [address], [place] [phone] * (ABNORMAL) Basic metabolic panel (05/12/2025 5:45 AM EST) Sodium 142 133 - 145 mmol/L LAB CHEMISTRY METHOD 05/12/2025 7:56 AM [facility] Potassium 4.5 3.5 - 5.5 mmol/L LAB CHEMISTRY METHOD 05/12/2025 7:56 AM [facility] Chloride 103 96 - 110 mmol/L LAB CHEMISTRY METHOD 05/12/2025 7:56 AM [facility] CO2 33(H) 21 - 32 mmol/L LAB CHEMISTRY METHOD 05/12/2025 7:56 AM [facility] Anion Gap 6 3 - 11 LAB CHEMISTRY METHOD 05/12/2025 7:56 AM [facility] Glucose 88 70 - 100 mg/dL LAB CHEMISTRY METHOD 05/12/2025 7:56 AM [facility] BUN 24 5 - 25 mg/dL LAB CHEMISTRY METHOD 05/12/2025 7:56 AM [facility] Creatinine 0.62 0.50 - 1.10 mg/dL LAB CHEMISTRY METHOD 05/12/2025 7:56 AM [facility] eGFR 89 >=60 mL/min/1. 73m2 LAB CHEMISTRY METHOD 05/12/2025 7:56 AM [facility] Comment:Calculation based on the Chronic Kidney Disease Epidemiology Collaboration (CKD-EPI) equation refit without adjustment for race. BUN/Creatinine Ratio 38.7 LAB CHEMISTRY METHOD 05/12/2025 7:56 AM [facility] Calcium 8.8 8.5 - 10.5 mg/dL LAB CHEMISTRY METHOD 05/12/2025 7:56 AM [facility] Blood Venous blood specimen / Unknown Venipuncture / Unknown 05/12/2025 5:45 AM EST 05/12/2025 6:29 AM EST us Amanda Woods MD LAB BLOOD ORDERABLES Final Resul t [facility] [address] [place] [address], * (ABNORMAL) CBC auto differential (05/11/2025 6:16 AM EST) WBC 7.8 4.8 - 10.8 K/mcL LAB HEMETOLOGY METHOD 05/11/2025 7:42 AM [facility] RBC 3.30(L) 3.80 - 4.80 M/mcL LAB HEMETOLOGY METHOD 05/11/2025 7:42 AM [facility] Hemoglobin 9.7(L) 11.5 - 16.0 g/dL LAB HEMETOLOGY METHOD 05/11/2025 7:42 AM [facility] Hematocrit 30.6(L) 35.0 - 47.0 % LAB HEMETOLOGY METHOD 05/11/2025 7:42 AM [facility] MCV 93.0 79.0 - 98.0 FL LAB HEMETOLOGY METHOD 05/11/2025 7:42 AM [facility] MCH 29.5 27.0 - 32.0 pcg LAB HEMETOLOGY METHOD 05/11/2025 7:42 AM [facility] MCHC 31.7(L) 32.0 - 37.0 g/dL LAB HEMETOLOGY METHOD 05/11/2025 7:42 AM [facility] RDW 18.1(H) 11.0 - 15.0 % LAB HEMETOLOGY METHOD 05/11/2025 7:42 AM [facility] Platelets 366 130 - 400 K/mcL LAB HEMETOLOGY METHOD 05/11/2025 7:42 AM [facility] MPV 9.5 7.0 - 11.0 FL LAB HEMETOLOGY METHOD 05/11/2025 7:42 AM [facility] NRBC 0.0 <1.0 % LAB HEMETOLOGY METHOD 05/11/2025 7:42 AM [facility] NRBC Absolute 0.00 <0.10 K/mcL LAB HEMETOLOGY METHOD 05/11/2025 7:42 AM [facility] Neutrophils Relative 65.0 % LAB HEMETOLOGY METHOD 05/11/2025 7:42 AM [facility] Lymphocytes Relative 14.1 % LAB HEMETOLOGY METHOD 05/11/2025 7:42 AM [facility] Monocytes Relative 15.5 % LAB HEMETOLOGY METHOD 05/11/2025 7:42 AM [facility] Eosinophils Relative 3.8 % LAB HEMETOLOGY METHOD 05/11/2025 7:42 AM [facility] Basophils Relative 0.6 % LAB HEMETOLOGY METHOD 05/11/2025 7:42 AM [facility] Immature Granulocytes Relative 1.0 % LAB HEMETOLOGY METHOD 05/11/2025 7:42 AM [facility] Neutrophils Absolute 5.07 1.50 - 7.00 K/mcL LAB HEMETOLOGY METHOD 05/11/2025 7:42 AM [facility] Lymphocytes Absolute 1.10 1.00 - 5.00 K/mcL LAB HEMETOLOGY METHOD 05/11/2025 7:42 AM EST [facility] Monocytes Absolute 1.21(H) 0.20 - 1.00 K/[facility] LAB HEMETOLOGY METHOD 05/11/2025 7:42 AM EST [facility] Eosinophils Absolute 0.30 0.00 - 0.50 K/[facility] LAB HEMETOLOGY METHOD 05/11/2025 7:42 AM EST [facility] Basophils Absolute 0.05 0.00 - 0.20 K/[facility] LAB HEMETOLOGY METHOD 05/11/2025 7:42 AM EST [facility] Immature Granulocytes Absolute 0.08(H) 0.00 - 0.03 K/[facility] LAB HEMETOLOGY METHOD 05/11/2025 7:42 AM EST [facility] Blood Venous blood specimen / Unknown Venipuncture / Unknown 05/11/2025 6:16 AM EST 05/11/2025 7:26 AM EST us Adelina SUMNER LAB BLOOD ORDERABLES Final R esult [facility] [address] [place] [address], [place] [phone] * SST tube (05/11/2025 6:14 AM EST) Extra Tube Hold for add-ons. 05/11/2025 9:01 AM EST [facility] Comment:Auto resulted. Blood Venous blood specimen / Unknown 05/11/2025 6:14 AM EST 05/11/2025 7:27 AM EST Amanda Woods MD LAB BLOOD ORDERABLES Final Resul t [facility] [address] [place] [address], [place] [phone] * (ABNORMAL) CBC auto differential (05/10/2025 6:01 AM EST) [facility] WBC 8.3 4.8 - 10.8 K/mcL LAB HEMETOLOGY METHOD 05/10/2025 6:43 AM [facility] RBC 3.20(L) 3.80 - 4.80 M/mcL LAB HEMETOLOGY METHOD 05/10/2025 6:43 AM [facility] Hemoglobin 9.5(L) 11.5 - 16.0 g/dL LAB HEMETOLOGY METHOD 05/10/2025 6:43 AM [facility] Hematocrit 29.3(L) 35.0 - 47.0 % LAB HEMETOLOGY METHOD 05/10/2025 6:43 AM [facility] MCV 91.6 79.0 - 98.0 FL LAB HEMETOLOGY METHOD 05/10/2025 6:43 AM [facility] MCH 29.7 27.0 - 32.0 pcg LAB HEMETOLOGY METHOD 05/10/2025 6:43 AM [facility] MCHC 32.4 32.0 - 37.0 g/dL LAB HEMETOLOGY METHOD 05/10/2025 6:43 AM [facility] RDW 19.1(H) 11.0 - 15.0 % LAB HEMETOLOGY METHOD 05/10/2025 6:43 AM [facility] Platelets 327 130 - 400 K/mcL LAB HEMETOLOGY METHOD 05/10/2025 6:43 AM [facility] MPV 9.0 7.0 - 11.0 FL LAB HEMETOLOGY METHOD 05/10/2025 6:43 AM [facility] NRBC 0.0 <1.0 % LAB HEMETOLOGY METHOD 05/10/2025 6:43 AM [facility] NRBC Absolute 0.00 <0.10 K/mcL LAB HEMETOLOGY METHOD 05/10/2025 6:43 AM [facility] Neutrophils Relative 60.2 % LAB HEMETOLOGY METHOD 05/10/2025 6:43 AM [facility] Lymphocytes Relative 16.1 % LAB HEMETOLOGY METHOD 05/10/2025 6:43 AM [facility] Monocytes Relative 17.2 % LAB HEMETOLOGY METHOD 05/10/2025 6:43 AM [facility] Eosinophils Relative 4.5 % LAB HEMETOLOGY METHOD 05/10/2025 6:43 AM [facility] Basophils Relative 0.7 % LAB HEMETOLOGY METHOD 05/10/2025 6:43 AM [facility] Immature Granulocytes Relative 1.3 % LAB HEMETOLOGY METHOD 05/10/2025 6:43 AM [facility] Neutrophils Absolute 4.96 1.50 - 7.00 K/mcL LAB HEMETOLOGY METHOD 05/10/2025 6:43 AM [facility] Lymphocytes Absolute 1.33 1.00 - 5.00 K/mcL LAB HEMETOLOGY METHOD 05/10/2025 6:43 AM [facility] Monocytes Absolute 1.42(H) 0.20 - 1.00 K/mcL LAB HEMETOLOGY METHOD 05/10/2025 6:43 AM [facility] Eosinophils Absolute 0.37 0.00 - 0.50 K/mcL LAB HEMETOLOGY METHOD 05/10/2025 6:43 AM [facility] Basophils Absolute 0.06 0.00 - 0.20 K/mcL LAB HEMETOLOGY METHOD 05/10/2025 6:43 AM [facility] Immature Granulocytes Absolute 0.11(H) 0.00 - 0.03 K/mcL LAB HEMETOLOGY METHOD 05/10/2025 6:43 AM [facility] Blood Venous blood specimen / Unknown Venipuncture / Unknown 05/10/2025 6:01 AM EST 05/10/2025 6:22 AM EST us Adelina SUMNER LAB BLOOD ORDERABLES Final R esult [facility] [address] [place] [address], [place] [phone] * (ABNORMAL) Basic metabolic panel (05/10/2025 6:01 AM EST) Sodium 140 133 - 145 mmol/L LAB CHEMISTRY METHOD 05/10/2025 7:12 AM [facility] Potassium 4.4 3.5 - 5.5 mmol/L LAB CHEMISTRY METHOD 05/10/2025 7:12 AM [facility] Chloride 104 96 - 110 mmol/L LAB CHEMISTRY METHOD 05/10/2025 7:12 AM [facility] CO2 34(H) 21 - 32 mmol/L LAB CHEMISTRY METHOD 05/10/2025 7:12 AM [facility] Anion Gap 2(L) 3 - 11 LAB CHEMISTRY METHOD 05/10/2025 7:12 AM [facility] Glucose 96 70 - 100 mg/dL LAB CHEMISTRY METHOD 05/10/2025 7:12 AM [facility] BUN 27(H) 5 - 25 mg/dL LAB CHEMISTRY METHOD 05/10/2025 7:12 AM [facility] Creatinine 0.68 0.50 - 1.10 mg/dL LAB CHEMISTRY METHOD 05/10/2025 7:12 AM [facility] eGFR 87 >=60 mL/min/1. 73m2 LAB CHEMISTRY METHOD 05/10/2025 7:12 AM [facility] Comment:Calculation based on the Chronic Kidney Disease Epidemiology Collaboration (CKD-EPI) equation refit without adjustment for race. BUN/Creatinine Ratio 39.7 LAB CHEMISTRY METHOD 05/10/2025 7:12 AM EST [facility] Calcium 8.6 8.5 - 10.5 mg/dL LAB CHEMISTRY METHOD 05/10/2025 7:12 AM [facility] Blood Venous blood specimen / Unknown Venipuncture / Unknown 05/10/2025 6:01 AM EST 05/10/2025 6:22 AM EST us Mecca Barrios MD LAB BLOOD ORDERABLES Final R esult [facility] [address] [place] [address], [place] [phone] * Transfuse RBC, Leukoreduced (05/09/2025 9:42 PM EST) us Mecca Barrios MD BLOOD TRANSFUSION ORDERABLES Final Result * Transfuse RBC: 1 Units, Leukoreduced (05/09/2025 9:42 PM EST) us Mecca Barrios MD BLOOD TRANSFUSION ORDERABLES Final Result * Type and screen (05/09/2025 1:41 PM EST) ABO Group O 05/09/2025 3:07 PM [facility] Rh Type Positive 05/09/2025 3:07 PM EST [facility] Antibody Screen Negative 05/09/2025 3:07 PM EST [facility] Blood Venous blood specimen / Unknown Venipuncture / Unknown 05/09/2025 1:41 PM EST 05/09/2025 1:50 PM EST us Mecca Barrios MD LAB BLOOD BANK TEST ORDERABL ES Final Result [facility] [address] [place] [address], [place] [phone] * Prepare RBC: 1 Units, Leukoreduced (05/09/2025 1:28 PM EST) Product Code [id number] 05/09/2025 3:57 PM EST [facility] Unit Number [id number] 05/09/20 3:57 PM [facility] Crossmatch Compatible 05/09/2025 3:09 PM EST [facility] Dispense Status Transfused 05/09/2025 3:57 PM [facility] Unit ABO Rh ONEG 05/09/2025 3:57 PM [facility] Unit Expiration Date Time [id number] 05/09/2025 3:57 PM [facility] Unit Blood Type 9500 05/09/2025 3:57 PM [facility] Blood Venous blood specimen / Unknown 05/09/2025 1:28 PM EST 05/09/2025 1:50 PM EST us Mecca Barrios MD BLOOD BANK PRODUCT ORDERABLE S Final Result [facility] [address] [place] [address], [place] [phone] * POCT Glucose, blood (05/09/2025 7:56 AM EST) Pathologist [facility] Glucose POCT 88 70 - 100 mg/dL 05/09/2025 7:56 AM EST [facility] Blood Capillary blood specimen / Unknown 05/09/2025 7:56 AM EST 05/09/2025 7:58 AM EST us Mecca Barrios MD LAB POINT OF CARE TE ST DOCKED DEVICE UNSOLICITED RESULTS Final Result [facility] [address] [place] [address], [place] [phone] * (ABNORMAL) CBC auto differential (05/09/2025 6:51 AM EST) [facility] WBC 7.8 4.8 - 10.8 K/mcL LAB HEMETOLOGY METHOD 05/09/2025 7:55 AM [facility] RBC 2.80(L) 3.80 - 4.80 M/mcL LAB HEMETOLOGY METHOD 05/09/2025 7:55 AM [facility] Hemoglobin 8.2(L) 11.5 - 16.0 g/dL LAB HEMETOLOGY METHOD 05/09/2025 7:55 AM [facility] Hematocrit 26.3(L) 35.0 - 47.0 % LAB HEMETOLOGY METHOD 05/09/2025 7:55 AM [facility] MCV 93.9 79.0 - 98.0 FL LAB HEMETOLOGY METHOD 05/09/2025 7:55 AM [facility] MCH 29.3 27.0 - 32.0 pcg LAB HEMETOLOGY METHOD 05/09/2025 7:55 AM [facility] MCHC 31.2(L) 32.0 - 37.0 g/dL LAB HEMETOLOGY METHOD 05/09/2025 7:55 AM [facility] RDW 18.2(H) 11.0 - 15.0 % LAB HEMETOLOGY METHOD 05/09/2025 7:55 AM [facility] Platelets 305 130 - 400 K/mcL LAB HEMETOLOGY METHOD 05/09/2025 7:55 AM [facility] MPV 9.4 7.0 - 11.0 FL LAB HEMETOLOGY METHOD 05/09/2025 7:55 AM [facility] NRBC 0.0 <1.0 % LAB HEMETOLOGY METHOD 05/09/2025 7:55 AM [facility] NRBC Absolute 0.00 <0.10 K/mcL LAB HEMETOLOGY METHOD 05/09/2025 7:55 AM [facility] Neutrophils Relative 67.2 % LAB HEMETOLOGY METHOD 05/09/2025 7:55 AM [facility] Lymphocytes Relative 14.1 % LAB HEMETOLOGY METHOD 05/09/2025 7:55 AM [facility] Monocytes Relative 13.3 % LAB HEMETOLOGY METHOD 05/09/2025 7:55 AM [facility] Eosinophils Relative 4.0 % LAB HEMETOLOGY METHOD 05/09/2025 7:55 AM [facility] Basophils Relative 0.6 % LAB HEMETOLOGY METHOD 05/09/2025 7:55 AM [facility] Immature Granulocytes Relative 0.8 % LAB HEMETOLOGY METHOD 05/09/2025 7:55 AM [facility] Neutrophils Absolute 5.25 1.50 - 7.00 K/mcL LAB HEMETOLOGY METHOD 05/09/2025 7:55 AM [facility] Lymphocytes Absolute 1.10 1.00 - 5.00 K/mcL LAB HEMETOLOGY METHOD 05/09/2025 7:55 AM [facility] Monocytes Absolute 1.04(H) 0.20 - 1.00 K/mcL LAB HEMETOLOGY METHOD 05/09/2025 7:55 AM [facility] Eosinophils Absolute 0.31 0.00 - 0.50 K/mcL LAB HEMETOLOGY METHOD 05/09/2025 7:55 AM [facility] Basophils Absolute 0.05 0.00 - 0.20 K/mcL LAB HEMETOLOGY METHOD 05/09/2025 7:55 AM [facility] Immature Granulocytes Absolute 0.06(H) 0.00 - 0.03 K/mcL LAB HEMETOLOGY METHOD 05/09/2025 7:55 AM EST [facility] Blood Venous blood specimen / Unknown Venipuncture / Unknown 05/09/2025 6:51 AM EST 05/09/2025 7:27 AM EST Adelina SUMNER LAB BLOOD ORDERABLES Final R esult [facility] [address] [place] [address], [place] [phone] * SST tube (05/09/2025 6:48 AM EST) Pathologist [facility] Extra Tube Hold for add-ons. 05/09/2025 9:01 AM [facility] Comment:Auto resulted. Blood Venous blood specimen / Unknown 05/09/2025 6:48 AM EST 05/09/2025 7:30 AM EST Mecca Barrios MD LAB BLOOD ORDERABLES Final R esult [facility] [address] [place] [address], * (ABNORMAL) CBC auto differential (05/08/2025 7:01 AM EST) WBC 8.6 4.8 - 10.8 K/[facility] LAB HEMETOLOGY METHOD 05/08/2025 8:15 AM [facility] RBC 2.90(L) 3.80 - 4.80 /[facility] LAB HEMETOLOGY METHOD 05/08/2025 8:15 AM [facility] Hemoglobin 8.7(L) 11.5 - 16.0 g/dL LAB HEMETOLOGY METHOD 05/08/2025 8:15 AM [facility] Hematocrit 26.5(L) 35.0 - 47.0 % LAB HEMETOLOGY METHOD 05/08/2025 8:15 AM [facility] MCV 91.4 79.0 - 98.0 FL LAB HEMETOLOGY METHOD 05/08/2025 8:15 AM [facility] MCH 30.0 27.0 - 32.0 pcg LAB HEMETOLOGY METHOD 05/08/2025 8:15 AM [facility] MCHC 32.8 32.0 - 37.0 g/dL LAB HEMETOLOGY METHOD 05/08/2025 8:15 AM [facility] RDW 18.9(H) 11.0 - 15.0 % LAB HEMETOLOGY METHOD 05/08/2025 8:15 AM [facility] Platelets 296 130 - 400 K/mcL LAB HEMETOLOGY METHOD 05/08/2025 8:15 AM [facility] MPV 9.6 7.0 - 11.0 FL LAB HEMETOLOGY METHOD 05/08/2025 8:15 AM [facility] NRBC 0.0 <1.0 % LAB HEMETOLOGY METHOD 05/08/2025 8:15 AM [facility] NRBC Absolute 0.00 <0.10 K/mcL LAB HEMETOLOGY METHOD 05/08/2025 8:15 AM [facility] Neutrophils Relative 69.0 % LAB HEMETOLOGY METHOD 05/08/2025 8:15 AM [facility] Lymphocytes Relative 13.3 % LAB HEMETOLOGY METHOD 05/08/2025 8:15 AM [facility] Monocytes Relative 13.3 % LAB HEMETOLOGY METHOD 05/08/2025 8:15 AM [facility] Eosinophils Relative 2.9 % LAB HEMETOLOGY METHOD 05/08/2025 8:15 AM [facility] Basophils Relative 0.3 % LAB HEMETOLOGY METHOD 05/08/2025 8:15 AM [facility] Immature Granulocytes Relative 1.2 % LAB HEMETOLOGY METHOD 05/08/2025 8:15 AM EST [facility] Neutrophils Absolute 5.95 1.50 - 7.00 K/mcL LAB HEMETOLOGY METHOD 05/08/2025 8:15 AM EST [facility] Lymphocytes Absolute 1.15 1.00 - 5.00 K/mcL LAB HEMETOLOGY METHOD 05/08/2025 8:15 AM EST [facility] Monocytes Absolute 1.15(H) 0.20 - 1.00 K/mcL LAB HEMETOLOGY METHOD 05/08/2025 8:15 AM EST [facility] Eosinophils Absolute 0.25 0.00 - 0.50 K/mcL LAB HEMETOLOGY METHOD 05/08/2025 8:15 AM EST [facility] Basophils Absolute 0.03 0.00 - 0.20 K/mcL LAB HEMETOLOGY METHOD 05/08/2025 8:15 AM EST [facility] Immature Granulocytes Absolute 0.10(H) 0.00 - 0.03 K/mcL LAB HEMETOLOGY METHOD 05/08/2025 8:15 AM [facility] Blood Venous blood specimen / Unknown Venipuncture / Unknown 05/08/2025 7:01 AM EST 05/08/2025 7:57 AM EST [employer] [facility] LAB BLOOD ORDERABLES Final R esult [facility] [address] [place] [address], * (ABNORMAL) Basic metabolic panel (05/08/2025 7:01 AM EST) Sodium 140 133 - 145 mmol/L LAB CHEMISTRY METHOD 05/08/2025 8:20 AM EST [facility] Potassium 4.3 3.5 - 5.5 mmol/L LAB CHEMISTRY METHOD 05/08/2025 8:20 AM [facility] Chloride 105 96 - 110 mmol/L LAB CHEMISTRY METHOD 05/08/2025 8:20 AM [facility] CO2 30 21 - 32 mmol/L LAB CHEMISTRY METHOD 05/08/2025 8:20 AM [facility] Anion Gap 5 3 - 11 LAB CHEMISTRY METHOD 05/08/2025 8:20 AM [facility] Glucose 95 70 - 100 mg/dL LAB CHEMISTRY METHOD 05/08/2025 8:20 AM [facility] BUN 26(H) 5 - 25 mg/dL LAB CHEMISTRY METHOD 05/08/2025 8:20 AM [facility] Creatinine 0.56 0.50 - 1.10 mg/dL LAB CHEMISTRY METHOD 05/08/2025 8:20 AM [facility] eGFR 91 >=60 mL/min/1. 73m2 LAB CHEMISTRY METHOD 05/08/2025 8:20 AM [facility] Comment:Calculation based on the Chronic Kidney Disease Epidemiology Collaboration (CKD-EPI) equation refit without adjustment for race. BUN/Creatinine Ratio 46.4 LAB CHEMISTRY METHOD 05/08/2025 8:20 AM [facility] Calcium 8.1(L) 8.5 - 10.5 mg/dL LAB CHEMISTRY METHOD 05/08/2025 8:20 AM [facility] Blood Venous blood specimen / Unknown Venipuncture / Unknown 05/08/2025 7:01 AM EST 05/08/2025 7:57 AM EST Mecca Barrios MD LAB BLOOD ORDERABLES Final R esult [facility] [address] [place] [address], * Transfuse RBC, Leukoreduced (05/07/2025 3:19 PM EST) us Mecca Barrios MD BLOOD TRANSFUSION ORDERABLES Final Result * Transfuse RBC: 1 Units, Leukoreduced (05/07/2025 3:19 PM EST) us Mecca Barrios MD BLOOD TRANSFUSION ORDERABLES Final Result * Prepare RBC: 1 Units, Leukoreduced (05/07/2025 9:11 AM EST) Pathologist [facility] Product Code [id number] 05/07/2025 10:19 AM [facility] Unit Number [id number] 05/07/20 10:19 AM [facility] Crossmatch Compatible 05/07/2025 9:19 AM [facility] Dispense Status Transfused 05/07/2025 10:19 AM [facility] Unit ABO Rh OPOS 05/07/2025 10:19 AM [facility] Unit Expiration Date Time [id number] 05/07/2025 10:19 AM [facility] Unit Blood Type 5100 05/07/2025 10:19 AM [facility] Blood Venous blood specimen / Unknown 05/07/2025 9:11 AM EST 05/04/2025 3:37 PM EST us Mecca Barrios MD BLOOD BANK PRODUCT ORDERABLE S Final Result [facility] [address] [place] [address], * (ABNORMAL) CBC auto differential (05/07/2025 6:35 AM EST) Pathologist [facility] WBC 10.6 4.8 - 10.8 K/mcL LAB HEMETOLOGY METHOD 05/07/2025 7:13 AM [facility] RBC 2.20(L) 3.80 - 4.80 M/mcL LAB HEMETOLOGY METHOD 05/07/2025 7:13 AM [facility] Hemoglobin 6.7(L) 11.5 - 16.0 g/dL LAB HEMETOLOGY METHOD 05/07/2025 7:13 AM [facility] Hematocrit 20.1(L) 35.0 - 47.0 % LAB HEMETOLOGY METHOD 05/07/2025 7:13 AM [facility] MCV 92.6 79.0 - 98.0 FL LAB HEMETOLOGY METHOD 05/07/2025 7:13 AM [facility] MCH 30.9 27.0 - 32.0 pcg LAB HEMETOLOGY METHOD 05/07/2025 7:13 AM [facility] MCHC 33.3 32.0 - 37.0 g/dL LAB HEMETOLOGY METHOD 05/07/2025 7:13 AM [facility] RDW 17.9(H) 11.0 - 15.0 % LAB HEMETOLOGY METHOD 05/07/2025 7:13 AM [facility] Platelets 241 130 - 400 K/mcL LAB HEMETOLOGY METHOD 05/07/2025 7:13 AM [facility] MPV 10.0 7.0 - 11.0 FL LAB HEMETOLOGY METHOD 05/07/2025 7:13 AM [facility] NRBC 0.0 <1.0 % LAB HEMETOLOGY METHOD 05/07/2025 7:13 AM [facility] NRBC Absolute 0.00 <0.10 K/mcL LAB HEMETOLOGY METHOD 05/07/2025 7:13 AM [facility] Neutrophils Relative 71.2 % LAB HEMETOLOGY METHOD 05/07/2025 7:13 AM [facility] Lymphocytes Relative 10.8 % LAB HEMETOLOGY METHOD 05/07/2025 7:13 AM [facility] Monocytes Relative 15.7 % LAB HEMETOLOGY METHOD 05/07/2025 7:13 AM [facility] Eosinophils Relative 1.4 % LAB HEMETOLOGY METHOD 05/07/2025 7:13 AM [facility] Basophils Relative 0.2 % LAB HEMETOLOGY METHOD 05/07/2025 7:13 AM [facility] Immature Granulocytes Relative 0.7 % LAB HEMETOLOGY METHOD 05/07/2025 7:13 AM [facility] Neutrophils Absolute 7.53(H) 1.50 - 7.00 K/mcL LAB HEMETOLOGY METHOD 05/07/2025 7:13 AM [facility] Lymphocytes Absolute 1.14 1.00 - 5.00 K/mcL LAB HEMETOLOGY METHOD 05/07/2025 7:13 AM [facility] Monocytes Absolute 1.66(H) 0.20 - 1.00 K/mcL LAB HEMETOLOGY METHOD 05/07/2025 7:13 AM [facility] Eosinophils Absolute 0.15 0.00 - 0.50 K/mcL LAB HEMETOLOGY METHOD 05/07/2025 7:13 AM [facility] Basophils Absolute 0.02 0.00 - 0.20 K/mcL LAB HEMETOLOGY METHOD 05/07/2025 7:13 AM [facility] Immature Granulocytes Absolute 0.07(H) 0.00 - 0.03 K/mcL LAB HEMETOLOGY METHOD 05/07/2025 7:13 AM [facility] Blood Venous blood specimen / Unknown Venipuncture / Unknown 05/07/2025 6:35 AM EST 05/07/2025 6:58 AM EST us [employer] [facility] LAB BLOOD ORDERABLES Final R esult [facility] [address] [place] [address], [place] [phone] * (ABNORMAL) Basic metabolic panel (05/07/2025 6:34 AM EST) Sodium 139 133 - 145 mmol/L LAB CHEMISTRY METHOD 05/07/2025 7:44 AM EST [facility] Potassium 3.7 3.5 - 5.5 mmol/L LAB CHEMISTRY METHOD 05/07/2025 7:44 AM [facility] Chloride 104 96 - 110 mmol/L LAB CHEMISTRY METHOD 05/07/2025 7:44 AM [facility] CO2 30 21 - 32 mmol/L LAB CHEMISTRY METHOD 05/07/2025 7:44 AM [facility] Anion Gap 5 3 - 11 LAB CHEMISTRY METHOD 05/07/2025 7:44 AM [facility] Glucose 106(H) 70 - 100 mg/dL LAB CHEMISTRY METHOD 05/07/2025 7:44 AM [facility] BUN 22 5 - 25 mg/dL LAB CHEMISTRY METHOD 05/07/2025 7:44 AM [facility] Creatinine 0.71 0.50 - 1.10 mg/dL LAB CHEMISTRY METHOD 05/07/2025 7:44 AM [facility] eGFR 85 >=60 mL/min/1. 73m2 LAB CHEMISTRY METHOD 05/07/2025 7:44 AM [facility] Comment:Calculation based on the Chronic Kidney Disease Epidemiology Collaboration (CKD-EPI) equation refit without adjustment for race. BUN/Creatinine Ratio 31.0 LAB CHEMISTRY METHOD 05/07/2025 7:44 AM [facility] Calcium 8.4(L) 8.5 - 10.5 mg/dL LAB CHEMISTRY METHOD 05/07/2025 7:44 AM [facility] Blood Venous blood specimen / Unknown Venipuncture / Unknown 05/07/2025 6:34 AM EST 05/07/2025 6:59 AM EST us Mecca Barrios MD LAB BLOOD ORDERABLES Final R esult [facility] [address] [place] [address], * Transfuse RBC: 1 Units, Leukoreduced (05/06/2025 12:43 PM EST) us Mecca Barrios MD BLOOD TRANSFUSION ORDERABLES Final Result * Transfuse RBC, Leukoreduced (05/06/2025 12:43 PM EST) us Mecca Barrios MD BLOOD TRANSFUSION ORDERABLES Final Result * Prepare RBC: 1 Units, Leukoreduced (05/06/2025 8:34 AM EST) Product Code [id number] 05/06/2025 9:31 AM [facility] Unit Number [id number] 05/06/20 9:31 AM [facility] Crossmatch Compatible 05/06/2025 8:38 AM [facility] Dispense Status Issued 05/06/2025 9:31 AM [facility] Unit ABO Rh OPOS 05/06/2025 9:31 AM [facility] Unit Expiration Date Time [id number] 05/06/2025 9:31 AM [facility] Unit Blood Type 5100 05/06/2025 9:31 AM [facility] Blood Venous blood specimen / Unknown 05/06/2025 8:34 AM EST 05/04/2025 3:37 PM EST Result Hai Barrios MD BLOOD BANK PRODUCT ORDERABLE S Final Result [facility] [address] [place] [address], * (ABNORMAL) Basic metabolic panel (05/06/2025 6:22 AM EST) Sodium 139 133 - 145 mmol/L LAB CHEMISTRY METHOD 05/06/2025 7:54 AM EST [facility] Potassium 4.6 3.5 - 5.5 mmol/L LAB CHEMISTRY METHOD 05/06/2025 7:54 AM [facility] Chloride 103 96 - 110 mmol/L LAB CHEMISTRY METHOD 05/06/2025 7:54 AM [facility] CO2 29 21 - 32 mmol/L LAB CHEMISTRY METHOD 05/06/2025 7:54 AM [facility] Anion Gap 7 3 - 11 LAB CHEMISTRY METHOD 05/06/2025 7:54 AM [facility] Glucose 142(H) 70 - 100 mg/dL LAB CHEMISTRY METHOD 05/06/2025 7:54 AM [facility] BUN 23 5 - 25 mg/dL LAB CHEMISTRY METHOD 05/06/2025 7:54 AM [facility] Creatinine 0.80 0.50 - 1.10 mg/dL LAB CHEMISTRY METHOD 05/06/2025 7:54 AM [facility] eGFR 74 >=60 mL/min/1. 73m2 LAB CHEMISTRY METHOD 05/06/2025 7:54 AM [facility] Comment:Calculation based on the Chronic Kidney Disease Epidemiology Collaboration (CKD-EPI) equation refit without adjustment for race. BUN/Creatinine Ratio 28.8 LAB CHEMISTRY METHOD 05/06/2025 7:54 AM [facility] Calcium 8.7 8.5 - 10.5 mg/dL LAB CHEMISTRY METHOD 05/06/2025 7:54 AM [facility] Blood Venous blood specimen / Unknown Venipuncture / Unknown 05/06/2025 6:22 AM EST 05/06/2025 6:49 AM EST us Sindi SUMNER LAB BLOOD ORDERABLES Final Resul t [facility] [address] [place] [address], [place] [phone] * (ABNORMAL) Complete blood count (05/06/2025 6:22 AM EST) Pathologist [facility] WBC 10.0 4.8 - 10.8 K/mcL LAB HEMETOLOGY METHOD 05/06/2025 7:39 AM [facility] RBC 2.20(L) 3.80 - 4.80 M/[facility] LAB HEMETOLOGY METHOD 05/06/2025 7:39 AM [facility] Hemoglobin 6.8(L) 11.5 - 16.0 g/dL LAB HEMETOLOGY METHOD 05/06/2025 7:39 AM [facility] Hematocrit 22.2(L) 35.0 - 47.0 % LAB HEMETOLOGY METHOD 05/06/2025 7:39 AM [facility] MCV 99.1(H) 79.0 - 98.0 FL LAB HEMETOLOGY METHOD 05/06/2025 7:39 AM [facility] MCH 30.4 27.0 - 32.0 pcg LAB HEMETOLOGY METHOD 05/06/2025 7:39 AM [facility] MCHC 30.6(L) 32.0 - 37.0 g/dL LAB HEMETOLOGY METHOD 05/06/2025 7:39 AM [facility] RDW 16.3(H) 11.0 - 15.0 % LAB HEMETOLOGY METHOD 05/06/2025 7:39 AM [facility] Platelets 304 130 - 400 K/mcL LAB HEMETOLOGY METHOD 05/06/2025 7:39 AM EST [facility] MPV 9.1 7.0 - 11.0 FL LAB HEMETOLOGY METHOD 05/06/2025 7:39 AM EST [facility] NRBC 0.0 <1.0 % LAB HEMETOLOGY METHOD 05/06/2025 7:39 AM EST [facility] NRBC Absolute 0.00 <0.10 K/mcL LAB HEMETOLOGY METHOD 05/06/2025 7:39 AM EST [facility] Blood Venous blood specimen / Unknown Venipuncture / Unknown 05/06/2025 6:22 AM EST 05/06/2025 6:49 AM EST us Sindi SUMNER LAB BLOOD ORDERABLES Final Resul t [facility] [address] [place] [address], * XR Femur 2+ Views Right (05/05/2025 [...] Signed Date: 05/06/2025 07:48 ET Workstation ID: [id number] Transcribed By: Self Edit Transcribed Date: 05/06/2025 [...] Signed Date: 05/06/2025 07:48 ET Workstation ID: [id number] Transcribed By: Self Edit Transcribed Date: 05/06/2025 07:45 ET us Brian Baeza MD IMG XR PROCEDURES Final Resul t * (ABNORMAL) CBC auto differential (05/05/2025 6:15 AM EST) WBC 7.1 4.8 - 10.8 K/[facility] LAB HEMETOLOGY METHOD 05/05/2025 8:02 AM [facility] RBC 2.90(L) 3.80 - 4.80 M/[facility] LAB HEMETOLOGY METHOD 05/05/2025 8:02 AM [facility] Hemoglobin 8.8(L) 11.5 - 16.0 g/dL LAB HEMETOLOGY METHOD 05/05/2025 8:02 AM [facility] Hematocrit 28.7(L) 35.0 - 47.0 % LAB HEMETOLOGY METHOD 05/05/2025 8:02 AM [facility] MCV 98.3(H) 79.0 - 98.0 FL LAB HEMETOLOGY METHOD 05/05/2025 8:02 AM [facility] MCH 30.1 27.0 - 32.0 pcg LAB HEMETOLOGY METHOD 05/05/2025 8:02 AM [facility] MCHC 30.7(L) 32.0 - 37.0 g/dL LAB HEMETOLOGY METHOD 05/05/2025 8:02 AM [facility] RDW 16.8(H) 11.0 - 15.0 % LAB HEMETOLOGY METHOD 05/05/2025 8:02 AM [facility] Platelets 299 130 - 400 K/mcL LAB HEMETOLOGY METHOD 05/05/2025 8:02 AM [facility] MPV 9.6 7.0 - 11.0 FL LAB HEMETOLOGY METHOD 05/05/2025 8:02 AM [facility] NRBC 0.0 <1.0 % LAB HEMETOLOGY METHOD 05/05/2025 8:02 AM [facility] NRBC Absolute 0.00 <0.10 K/mcL LAB HEMETOLOGY METHOD 05/05/2025 8:02 AM [facility] Neutrophils Relative 62.8 % LAB HEMETOLOGY METHOD 05/05/2025 8:02 AM [facility] Lymphocytes Relative 15.9 % LAB HEMETOLOGY METHOD 05/05/2025 8:02 AM [facility] Monocytes Relative 14.5 % LAB HEMETOLOGY METHOD 05/05/2025 8:02 AM [facility] Eosinophils Relative 5.9 % LAB HEMETOLOGY METHOD 05/05/2025 8:02 AM [facility] Basophils Relative 0.6 % LAB HEMETOLOGY METHOD 05/05/2025 8:02 AM [facility] Immature Granulocytes Relative 0.3 % LAB HEMETOLOGY METHOD 05/05/2025 8:02 AM [facility] Neutrophils Absolute 4.48 1.50 - 7.00 K/mcL LAB HEMETOLOGY METHOD 05/05/2025 8:02 AM [facility] Lymphocytes Absolute 1.13 1.00 - 5.00 K/mcL LAB HEMETOLOGY METHOD 05/05/2025 8:02 AM [facility] Monocytes Absolute 1.03(H) 0.20 - 1.00 K/mcL LAB HEMETOLOGY METHOD 05/05/2025 8:02 AM [facility] Eosinophils Absolute 0.42 0.00 - 0.50 K/mcL LAB HEMETOLOGY METHOD 05/05/2025 8:02 AM [facility] Basophils Absolute 0.04 0.00 - 0.20 K/mcL LAB HEMETOLOGY METHOD 05/05/2025 8:02 AM [facility] Immature Granulocytes Absolute 0.02 0.00 - 0.03 K/mcL LAB HEMETOLOGY METHOD 05/05/2025 8:02 AM [facility] Blood Venous blood specimen / Unknown Venipuncture / Unknown 05/05/2025 6:15 AM EST 05/05/2025 7:45 AM EST us Mecca Barrios MD LAB BLOOD ORDERABLES Final R esult [facility] [address] [place] [address], * (ABNORMAL) Basic metabolic panel (05/05/2025 6:15 AM EST) Sodium 141 133 - 145 mmol/L LAB CHEMISTRY METHOD 05/05/2025 8:27 AM [facility] Potassium 4.3 3.5 - 5.5 mmol/L LAB CHEMISTRY METHOD 05/05/2025 8:27 AM [facility] Chloride 107 96 - 110 mmol/L LAB CHEMISTRY METHOD 05/05/2025 8:27 AM [facility] CO2 31 21 - 32 mmol/L LAB CHEMISTRY METHOD 05/05/2025 8:27 AM [facility] Anion Gap 3 3 - 11 LAB CHEMISTRY METHOD 05/05/2025 8:27 AM [facility] Glucose 85 70 - 100 mg/dL LAB CHEMISTRY METHOD 05/05/2025 8:27 AM [facility] BUN 20 5 - 25 mg/dL LAB CHEMISTRY METHOD 05/05/2025 8:27 AM [facility] Creatinine 0.71 0.50 - 1.10 mg/dL LAB CHEMISTRY METHOD 05/05/2025 8:27 AM [facility] eGFR 85 >=60 mL/min/1. 73m2 LAB CHEMISTRY METHOD 05/05/2025 8:27 AM [facility] Comment:Calculation based on the Chronic Kidney Disease Epidemiology Collaboration (CKD-EPI) equation refit without adjustment for race. BUN/Creatinine Ratio 28.2 LAB CHEMISTRY METHOD 05/05/2025 8:27 AM [facility] Calcium 8.1(L) 8.5 - 10.5 mg/dL LAB CHEMISTRY METHOD 05/05/2025 8:27 AM EST [facility] Blood Venous blood specimen / Unknown Venipuncture / Unknown 05/05/2025 6:15 AM EST 05/05/2025 7:45 AM EST Sindi SUMNER LAB BLOOD ORDERABLES Final Resul t Performing Organization Address [facility]/ZIP Co de Phone Number [facility] [address] [place] [address], [place] [phone] * Type and screen (05/04/2025 3:25 PM EST) ABO Group O 05/04/2025 6:00 PM EST [facility] Rh Type Positive 05/04/2025 6:00 PM EST [facility] Antibody Screen Negative 05/04/2025 6:00 PM EST [facility] Blood Venous blood specimen / Unknown Venipuncture / Unknown 05/04/2025 3:25 PM EST 05/04/2025 3:37 PM EST Sindi SUMNER LAB BLOOD BANK TEST ORDERABLES F inal Result Performing Organization Address City/[facility]/ZIP Co de Phone Number [facility] [address] [place] [address], [place] [phone] * Prepare RBC: 2 Units, Leukoreduced (05/04/2025 2:56 PM EST) Product Code [id number] 05/04/2025 3:22 PM EST [facility] Unit Number [id number] 05/04/20 3:22 PM EST [facility] Crossmatch Compatible 05/04/2025 3:06 PM EST [facility] Dispense Status Released From Crossmatch 05/04/2025 3:22 PM EST [facility] Unit ABO Rh OPOS 05/04/2025 3:22 PM EST [facility] Unit Expiration Date Time 05/04/2025 3:22 PM EST [facility] Unit Blood Type 5100 05/04/2025 3:22 PM [facility] Product Code [id number] 05/04/2025 3:22 PM [facility] Unit Number [id number] 05/04/20 3:22 PM [facility] Crossmatch Compatible 05/04/2025 3:06 PM EST [facility] Dispense Status Transfused 05/04/2025 3:22 PM [facility] Unit ABO Rh OPOS 05/04/2025 3:22 PM [facility] Unit Expiration Date Time 05/04/2025 3:22 PM [facility] Unit Blood Type 5100 05/04/2025 3:22 PM [facility] Blood Venous blood specimen / Unknown 05/04/2025 2:56 PM EST 05/01/2025 4:43 PM EST us Sindi SUMNER BLOOD BANK PRODUCT ORDERABLES Fi nal Result [facility] [address] [place] [address], * (ABNORMAL) CBC auto differential (05/04/2025 7:00 AM EST) [facility] Signature WBC 7.4 4.8 - 10.8 K/[facility] HEMETOLOGY METHOD 05/04/2025 7:37 AM EST [facility] RBC 2.70(L) 3.80 - 4.80 M/[facility] HEMETOLOGY METHOD 05/04/2025 7:37 AM [facility] Hemoglobin 8.4(L) 11.5 - 16.0 g/dL LAB HEMETOLOGY METHOD 05/04/2025 7:37 AM [facility] Hematocrit 26.1(L) 35.0 - 47.0 % LAB HEMETOLOGY METHOD 05/04/2025 7:37 AM [facility] MCV 96.3 79.0 - 98.0 FL LAB HEMETOLOGY METHOD 05/04/2025 7:37 AM [facility] MCH 31.0 27.0 - 32.0 pcg LAB HEMETOLOGY METHOD 05/04/2025 7:37 AM [facility] MCHC 32.2 32.0 - 37.0 g/dL LAB HEMETOLOGY METHOD 05/04/2025 7:37 AM [facility] RDW 16.8(H) 11.0 - 15.0 % LAB HEMETOLOGY METHOD 05/04/2025 7:37 AM [facility] Platelets 280 130 - 400 K/mcL LAB HEMETOLOGY METHOD 05/04/2025 7:37 AM [facility] MPV 8.9 7.0 - 11.0 FL LAB HEMETOLOGY METHOD 05/04/2025 7:37 AM [facility] NRBC 0.0 <1.0 % LAB HEMETOLOGY METHOD 05/04/2025 7:37 AM [facility] NRBC Absolute 0.00 <0.10 K/mcL LAB HEMETOLOGY METHOD 05/04/2025 7:37 AM [facility] Neutrophils Relative 67.6 % LAB HEMETOLOGY METHOD 05/04/2025 7:37 AM [facility] Lymphocytes Relative 13.4 % LAB HEMETOLOGY METHOD 05/04/2025 7:37 AM [facility] Monocytes Relative 14.8 % LAB HEMETOLOGY METHOD 05/04/2025 7:37 AM [facility] Eosinophils Relative 3.4 % LAB HEMETOLOGY METHOD 05/04/2025 7:37 AM [facility] Basophils Relative 0.4 % LAB HEMETOLOGY METHOD 05/04/2025 7:37 AM [facility] Immature Granulocytes Relative 0.4 % LAB HEMETOLOGY METHOD 05/04/2025 7:37 AM [facility] Neutrophils Absolute 5.01 1.50 - 7.00 K/mcL LAB HEMETOLOGY METHOD 05/04/2025 7:37 AM [facility] Lymphocytes Absolute 0.99(L) 1.00 - 5.00 K/mcL LAB HEMETOLOGY METHOD 05/04/2025 7:37 AM [facility] Monocytes Absolute 1.10(H) 0.20 - 1.00 K/mcL LAB HEMETOLOGY METHOD 05/04/2025 7:37 AM [facility] Eosinophils Absolute 0.25 0.00 - 0.50 K/mcL LAB HEMETOLOGY METHOD 05/04/2025 7:37 AM [facility] Basophils Absolute 0.03 0.00 - 0.20 K/mcL LAB HEMETOLOGY METHOD 05/04/2025 7:37 AM [facility] Immature Granulocytes Absolute 0.03 0.00 - 0.03 K/mcL LAB HEMETOLOGY METHOD 05/04/2025 7:37 AM [facility] Blood Venous blood specimen / Unknown Venipuncture / Unknown 05/04/2025 7:00 AM EST 05/04/2025 7:15 AM EST us Kitty Castellanos MD LAB BLOOD ORDERABLES Final Resu lt [facility] [address] [place] [address], [place] [phone] * Prothrombin time with INR (05/04/2025 7:00 AM EST) Protime 13.8 10.6 - 13.9 sec LAB COAGULATION METHOD 05/04/2025 7:34 AM EST [facility] INR 1.1 LAB COAGULATION METHOD 05/04/2025 7:34 AM EST [facility] Blood Venous blood specimen / Unknown Venipuncture / Unknown 05/04/2025 7:00 AM EST 05/04/2025 7:15 AM EST us Kitty Castellanos MD LAB BLOOD ORDERABLES Final Resu lt [facility] [address] [place] [address], [place] [phone] * Phosphorus (05/04/2025 7:00 AM EST) Pathologist [facility] Phosphorus 3.5 2.5 - 4.5 mg/dL LAB CHEMISTRY METHOD 05/04/2025 7:55 AM EST [facility] Blood Venous blood specimen / Unknown Venipuncture / Unknown 05/04/2025 7:00 AM EST 05/04/2025 7:15 AM EST us Kitty Castellanos MD LAB BLOOD ORDERABLES Final Resu lt [facility] [address] [place] [address], [place] [phone] * Magnesium (05/04/2025 7:00 AM EST) Magnesium 1.9 1.9 - 2.6 mg/dL LAB CHEMISTRY METHOD 05/04/2025 7:55 AM EST [facility] Blood Venous blood specimen / Unknown Venipuncture / Unknown 05/04/2025 7:00 AM EST 05/04/2025 7:15 AM EST us Kitty Castellanos MD LAB BLOOD ORDERABLES Final Resu lt [facility] [address] [place] [address], [place] [phone] * (ABNORMAL) Comprehensive metabolic panel (05/04/2025 7:00 AM EST) Sodium 140 133 - 145 mmol/L LAB CHEMISTRY METHOD 05/04/2025 8:01 AM [facility] Potassium 3.8 3.5 - 5.5 mmol/L LAB CHEMISTRY METHOD 05/04/2025 8:01 AM [facility] Chloride 106 96 - 110 mmol/L LAB CHEMISTRY METHOD 05/04/2025 8:01 AM [facility] CO2 30 21 - 32 mmol/L LAB CHEMISTRY METHOD 05/04/2025 8:01 AM [facility] Anion Gap 4 3 - 11 LAB CHEMISTRY METHOD 05/04/2025 8:01 AM [facility] Glucose 92 70 - 100 mg/dL LAB CHEMISTRY METHOD 05/04/2025 8:01 AM [facility] BUN 14 5 - 25 mg/dL LAB CHEMISTRY METHOD 05/04/2025 8:01 AM [facility] Creatinine 0.60 0.50 - 1.10 mg/dL LAB CHEMISTRY METHOD 05/04/2025 8:01 AM [facility] eGFR 90 >=60 mL/min/1. 73m2 LAB CHEMISTRY METHOD 05/04/2025 8:01 AM [facility] Comment:Calculation based on the Chronic Kidney Disease Epidemiology Collaboration (CKD-EPI) equation refit without adjustment for race. BUN/Creatinine Ratio 23.3 LAB CHEMISTRY METHOD 05/04/2025 8:01 AM [facility] Calcium 8.5 8.5 - 10.5 mg/dL LAB CHEMISTRY METHOD 05/04/2025 8:01 AM [facility] AST (SGOT) 13 10 - 42 unit/L LAB CHEMISTRY METHOD 05/04/2025 8:01 AM [facility] ALT (SGPT) 15 10 - 60 unit/L LAB CHEMISTRY METHOD 05/04/2025 8:01 AM [facility] Alkaline Phosphatase 77 42 - 121 unit/L LAB CHEMISTRY METHOD 05/04/2025 8:01 AM [facility] Total Protein 5.2(L) 6.0 - 8.0 g/dL LAB CHEMISTRY METHOD 05/04/2025 8:01 AM [facility] Albumin 2.5(L) 3.2 - 5.0 g/dL LAB CHEMISTRY METHOD 05/04/2025 8:01 AM [facility] Total Bilirubin 0.7 0.0 - 1.4 mg/dL LAB CHEMISTRY METHOD 05/04/2025 8:01 AM [facility] Blood Venous blood specimen / Unknown Venipuncture / Unknown 05/04/2025 7:00 AM EST 05/04/2025 7:15 AM EST us Kitty Castellanos MD LAB BLOOD ORDERABLES Final Resu lt [facility] [address] [place] [address], * SST tube (05/03/2025 6:48 AM EST) Extra Tube Hold for add-ons. 05/03/2025 9:01 AM [facility] Comment:Auto resulted. Blood Venous blood specimen / Unknown Venipuncture / Unknown 05/03/2025 6:48 AM EST 05/03/2025 7:11 AM EST us Kitty Castellanos MD LAB BLOOD ORDERABLES Final Resu lt Performing Organization Address [facility]/ZIP Co de Phone Number [facility] [address] [place] [address], * (ABNORMAL) Hemoglobin and hematocrit (05/03/2025 6:48 AM EST) Hemoglobin 8.5(L) 11.5 - 16.0 g/dL LAB HEMETOLOGY METHOD 05/03/2025 7:31 AM EST [facility] Hematocrit 27.2(L) 35.0 - 47.0 % LAB HEMETOLOGY METHOD 05/03/2025 7:31 AM EST [facility] Blood Venous blood specimen / Unknown Venipuncture / Unknown 05/03/2025 6:48 AM EST 05/03/2025 7:10 AM EST us Kitty Castellanos MD LAB BLOOD ORDERABLES Final Resu lt Performing Organization Address City/[facility]/ZIP Co de Phone Number [facility] [address] [place] [address], [place] [phone] * (ABNORMAL) Iron and TIBC (05/02/2025 6:48 AM EST) Iron 22(L) 40 - 150 mcg/dL LAB CHEMISTRY METHOD 05/03/2025 1:58 AM EST [facility] TIBC 232(L) 250 - 450 mcg/dL LAB CHEMISTRY METHOD 05/03/2025 1:58 AM EST [facility] Iron Saturation 9(L) 15 - 50 % LAB CHEMISTRY METHOD 05/03/2025 1:58 AM EST [facility] Blood Venous blood specimen / Unknown Venipuncture / Unknown 05/02/2025 6:48 AM EST 05/02/2025 6:53 AM EST us Kitty Castellanos MD LAB BLOOD ORDERABLES Final Resu lt Performing Organization Address City/[facility]/ZIP Co de Phone Number [facility] [address] [place] [address], [place] [phone] * Vitamin B12 (05/02/2025 6:48 AM EST) [facility] Vitamin B-12 434 250 - 900 pcg/mL LAB CHEMISTRY METHOD 05/02/2025 3:55 PM EST [facility] Blood Venous blood specimen / Unknown Venipuncture / Unknown 05/02/2025 6:48 AM EST 05/02/2025 6:53 AM EST us Kitty Castellanos MD LAB BLOOD ORDERABLES Final Resu lt Performing Organization Address [facility] de Phone Number [facility] [address] [place] [address], [place] [phone] * (ABNORMAL) Vitamin D 25 hydroxy (05/02/2025 6:48 AM EST) [facility] Vit D, 25-Hydroxy 21.9(L) 30.0 - 80.0 ng/mL LAB CHEMISTRY METHOD 05/02/2025 4:07 PM EST [facility] Blood Venous blood specimen / Unknown Venipuncture / Unknown 05/02/2025 6:48 AM EST 05/02/2025 6:53 AM EST us Kitty Castellanos MD LAB BLOOD ORDERABLES Final Resu lt Performing Organization Address City/[facility]/ZIP Co de Phone Number [facility] [address] [place] [address], [place] [phone] * (ABNORMAL) CBC auto differential (05/02/2025 6:48 AM EST) [facility] WBC 6.3 4.8 - 10.8 K/mcL LAB HEMETOLOGY METHOD 05/02/2025 7:09 AM EST [facility] [facility] RBC 2.80(L) 3.80 - 4.80 M/mcL LAB HEMETOLOGY METHOD 05/02/2025 7:09 AM [facility] Hemoglobin 8.5(L) 11.5 - 16.0 g/dL LAB HEMETOLOGY METHOD 05/02/2025 7:09 AM [facility] Hematocrit 27.6(L) 35.0 - 47.0 % LAB HEMETOLOGY METHOD 05/02/2025 7:09 AM [facility] MCV 98.2(H) 79.0 - 98.0 FL LAB HEMETOLOGY METHOD 05/02/2025 7:09 AM [facility] MCH 30.2 27.0 - 32.0 pcg LAB HEMETOLOGY METHOD 05/02/2025 7:09 AM [facility] MCHC 30.8(L) 32.0 - 37.0 g/dL LAB HEMETOLOGY METHOD 05/02/2025 7:09 AM [facility] RDW 17.0(H) 11.0 - 15.0 % LAB HEMETOLOGY METHOD 05/02/2025 7:09 AM [facility] Platelets 272 130 - 400 K/mcL LAB HEMETOLOGY METHOD 05/02/2025 7:09 AM [facility] MPV 9.0 7.0 - 11.0 FL LAB HEMETOLOGY METHOD 05/02/2025 7:09 AM [facility] NRBC 0.0 <1.0 % LAB HEMETOLOGY METHOD 05/02/2025 7:09 AM [facility] NRBC Absolute 0.00 <0.10 K/mcL LAB HEMETOLOGY METHOD 05/02/2025 7:09 AM [facility] Neutrophils Relative 62.9 % LAB HEMETOLOGY METHOD 05/02/2025 7:09 AM [facility] Lymphocytes Relative 17.6 % LAB HEMETOLOGY METHOD 05/02/2025 7:09 AM [facility] Monocytes Relative 14.8 % LAB HEMETOLOGY METHOD 05/02/2025 7:09 AM [facility] Eosinophils Relative 4.1 % LAB HEMETOLOGY METHOD 05/02/2025 7:09 AM [facility] Basophils Relative 0.3 % LAB HEMETOLOGY METHOD 05/02/2025 7:09 AM [facility] Immature Granulocytes Relative 0.3 % LAB HEMETOLOGY METHOD 05/02/2025 7:09 AM [facility] Neutrophils Absolute 3.95 1.50 - 7.00 K/mcL LAB HEMETOLOGY METHOD 05/02/2025 7:09 AM [facility] Lymphocytes Absolute 1.11 1.00 - 5.00 K/mcL LAB HEMETOLOGY METHOD 05/02/2025 7:09 AM [facility] Monocytes Absolute 0.93 0.20 - 1.00 K/mcL LAB HEMETOLOGY METHOD 05/02/2025 7:09 AM [facility] Eosinophils Absolute 0.26 0.00 - 0.50 K/mcL LAB HEMETOLOGY METHOD 05/02/2025 7:09 AM [facility] Basophils Absolute 0.02 0.00 - 0.20 K/mcL LAB HEMETOLOGY METHOD 05/02/2025 7:09 AM [facility] Immature Granulocytes Absolute 0.02 0.00 - 0.03 K/mcL LAB HEMETOLOGY METHOD 05/02/2025 7:09 AM [facility] Blood Venous blood specimen / Unknown Venipuncture / Unknown 05/02/2025 6:48 AM EST 05/02/2025 6:53 AM EST us Miguelangel Winn MD LAB BLOOD ORDERABLES Final Re sult [facility] [address] [place] [address], [place] [phone] * (ABNORMAL) Magnesium (05/02/2025 6:48 AM EST) [facility] Magnesium 1.8(L) 1.9 - 2.6 mg/dL LAB CHEMISTRY METHOD 05/02/2025 7:53 AM EST [facility] Blood Venous blood specimen / Unknown Venipuncture / Unknown 05/02/2025 6:48 AM EST 05/02/2025 6:53 AM EST Miguelangel Winn MD LAB BLOOD ORDERABLES Final Re sult [facility] [address] [place] [address], [place] [phone] * Basic metabolic panel (05/02/2025 6:48 AM EST) [facility] Sodium 143 133 - 145 mmol/L LAB CHEMISTRY METHOD 05/02/2025 7:53 AM [facility] Potassium 4.7 3.5 - 5.5 mmol/L LAB CHEMISTRY METHOD 05/02/2025 7:53 AM [facility] Chloride 108 96 - 110 mmol/L LAB CHEMISTRY METHOD 05/02/2025 7:53 AM [facility] CO2 31 21 - 32 mmol/L LAB CHEMISTRY METHOD 05/02/2025 7:53 AM [facility] Anion Gap 4 3 - 11 LAB CHEMISTRY METHOD 05/02/2025 7:53 AM [facility] Glucose 94 70 - 100 mg/dL LAB CHEMISTRY METHOD 05/02/2025 7:53 AM [facility] BUN 22 5 - 25 mg/dL LAB CHEMISTRY METHOD 05/02/2025 7:53 AM [facility] Creatinine 0.60 0.50 - 1.10 mg/dL LAB CHEMISTRY METHOD 05/02/2025 7:53 AM EST [facility] eGFR 90 >=60 mL/min/1. 73m2 LAB CHEMISTRY METHOD 05/02/2025 7:53 AM [facility] Comment:Calculation based on the Chronic Kidney Disease Epidemiology Collaboration (CKD-EPI) equation refit without adjustment for race. BUN/Creatinine Ratio 36.7 LAB CHEMISTRY METHOD 05/02/2025 7:53 AM [facility] Calcium 8.9 8.5 - 10.5 mg/dL LAB CHEMISTRY METHOD 05/02/2025 7:53 AM [facility] Blood Venous blood specimen / Unknown Venipuncture / Unknown 05/02/2025 6:48 AM EST 05/02/2025 6:53 AM EST us Miguelangel Winn MD LAB BLOOD ORDERABLES Final Re sult [facility] [address] [place] [address], * (ABNORMAL) CBC auto differential (05/01/2025 4:31 PM EST) WBC 7.5 4.8 - 10.8 K/mcL LAB HEMETOLOGY METHOD 05/01/2025 4:47 PM [facility] RBC 2.80(L) 3.80 - 4.80 M/[facility] LAB HEMETOLOGY METHOD 05/01/2025 4:47 PM [facility] Hemoglobin 8.7(L) 11.5 - 16.0 g/dL LAB HEMETOLOGY METHOD 05/01/2025 4:47 PM [facility] Hematocrit 27.7(L) 35.0 - 47.0 % LAB HEMETOLOGY METHOD 05/01/2025 4:47 PM [facility] MCV 98.9(H) 79.0 - 98.0 FL LAB HEMETOLOGY METHOD 05/01/2025 4:47 PM [facility] MCH 31.1 27.0 - 32.0 pcg LAB HEMETOLOGY METHOD 05/01/2025 4:47 PM [facility] MCHC 31.4(L) 32.0 - 37.0 g/dL LAB HEMETOLOGY METHOD 05/01/2025 4:47 PM [facility] RDW 16.9(H) 11.0 - 15.0 % LAB HEMETOLOGY METHOD 05/01/2025 4:47 PM [facility] Platelets 273 130 - 400 K/mcL LAB HEMETOLOGY METHOD 05/01/2025 4:47 PM [facility] MPV 8.9 7.0 - 11.0 FL LAB HEMETOLOGY METHOD 05/01/2025 4:47 PM [facility] NRBC 0.0 <1.0 % LAB HEMETOLOGY METHOD 05/01/2025 4:47 PM [facility] NRBC Absolute 0.00 <0.10 K/mcL LAB HEMETOLOGY METHOD 05/01/2025 4:47 PM [facility] Neutrophils Relative 76.6 % LAB HEMETOLOGY METHOD 05/01/2025 4:47 PM [facility] Lymphocytes Relative 9.4 % LAB HEMETOLOGY METHOD 05/01/2025 4:47 PM [facility] Monocytes Relative 10.7 % LAB HEMETOLOGY METHOD 05/01/2025 4:47 PM [facility] Eosinophils Relative 2.5 % LAB HEMETOLOGY METHOD 05/01/2025 4:47 PM [facility] Basophils Relative 0.4 % LAB HEMETOLOGY METHOD 05/01/2025 4:47 PM [facility] Immature Granulocytes Relative 0.4 % LAB HEMETOLOGY METHOD 05/01/2025 4:47 PM EST [facility] Neutrophils Absolute 5.77 1.50 - 7.00 K/[facility] LAB HEMETOLOGY METHOD 05/01/2025 4:47 PM EST [facility] Lymphocytes Absolute 0.71(L) 1.00 - 5.00 K/[facility] LAB HEMETOLOGY METHOD 05/01/2025 4:47 PM EST [facility] Monocytes Absolute 0.81 0.20 - 1.00 K/[facility] LAB HEMETOLOGY METHOD 05/01/2025 4:47 PM EST [facility] Eosinophils Absolute 0.19 0.00 - 0.50 K/[facility] LAB HEMETOLOGY METHOD 05/01/2025 4:47 PM [facility] Basophils Absolute 0.03 0.00 - 0.20 K/mcL LAB HEMETOLOGY METHOD 05/01/2025 4:47 PM [facility] Immature Granulocytes Absolute 0.03 0.00 - 0.03 K/[facility] LAB HEMETOLOGY METHOD 05/01/2025 4:47 PM EST [facility] Blood Venous blood specimen / Unknown Venipuncture / Unknown 05/01/2025 4:31 PM EST 05/01/2025 4:43 PM EST us Nik Vogt MD LAB BLOOD ORDERABLES Final Resul t [facility] [address] [place] [address], * Type and screen (05/01/2025 4:31 PM EST) ABO Group O 05/01/2025 5:40 PM EST [facility] Rh Type Positive 05/01/2025 5:40 PM EST [facility] Antibody Screen Negative 05/01/2025 5:40 PM [facility] Blood Venous blood specimen / Unknown Venipuncture / Unknown 05/01/2025 4:31 PM EST 05/01/2025 4:43 PM EST Nik Vogt MD LAB BLOOD BANK TEST ORDERABLES F inal Result [facility] [address] [place] [address], [place] [phone] * (ABNORMAL) Comprehensive metabolic panel (05/01/2025 4:31 PM EST) Pathologist [facility] Sodium 141 133 - 145 mmol/L LAB CHEMISTRY METHOD 05/01/2025 5:10 PM [facility] Potassium 3.9 3.5 - 5.5 mmol/L LAB CHEMISTRY METHOD 05/01/2025 5:10 PM [facility] Chloride 107 96 - 110 mmol/L LAB CHEMISTRY METHOD 05/01/2025 5:10 PM [facility] CO2 30 21 - 32 mmol/L LAB CHEMISTRY METHOD 05/01/2025 5:10 PM [facility] Anion Gap 4 3 - 11 LAB CHEMISTRY METHOD 05/01/2025 5:10 PM [facility] Glucose 118(H) 70 - 100 mg/dL LAB CHEMISTRY METHOD 05/01/2025 5:10 PM [facility] BUN 24 5 - 25 mg/dL LAB CHEMISTRY METHOD 05/01/2025 5:10 PM [facility] Creatinine 0.67 0.50 - 1.10 mg/dL LAB CHEMISTRY METHOD 05/01/2025 5:10 PM [facility] eGFR 87 >=60 mL/min/1. 73m2 LAB CHEMISTRY METHOD 05/01/2025 5:10 PM [facility] Comment:Calculation based on the Chronic Kidney Disease Epidemiology Collaboration (CKD-EPI) equation refit without adjustment for race. BUN/Creatinine Ratio 35.8 LAB CHEMISTRY METHOD 05/01/2025 5:10 PM EST [facility] Calcium 8.7 8.5 - 10.5 mg/dL LAB CHEMISTRY METHOD 05/01/2025 5:10 PM [facility] AST (SGOT) 19 10 - 42 unit/L LAB CHEMISTRY METHOD 05/01/2025 5:10 PM [facility] ALT (SGPT) 26 10 - 60 unit/L LAB CHEMISTRY METHOD 05/01/2025 5:10 PM [facility] Alkaline Phosphatase 109 42 - 121 unit/L LAB CHEMISTRY METHOD 05/01/2025 5:10 PM [facility] Total Protein 5.5(L) 6.0 - 8.0 g/dL LAB CHEMISTRY METHOD 05/01/2025 5:10 PM [facility] Albumin 2.7(L) 3.2 - 5.0 g/dL LAB CHEMISTRY METHOD 05/01/2025 5:10 PM [facility] Total Bilirubin 0.3 0.0 - 1.4 mg/dL LAB CHEMISTRY METHOD 05/01/2025 5:10 PM [facility] Blood Venous blood specimen / Unknown Venipuncture / Unknown 05/01/2025 4:31 PM EST 05/01/2025 4:43 PM EST us Nik Vogt MD LAB BLOOD ORDERABLES Final Resul t [facility] [address] [place] [address], * XR Knee 1-2 Views Right (05/01/2025 3:46 PM EST) Anatomical Region Laterality Modality Lower Extremities, Knee [facility] 05/01/2025 4:39 PM EST Impressions 05/01/2025 4:39 PM EST FINDINGS/IMPRESSION: There is a angulated and mildly displaced distal femur fracture. Degenerative changes of the knee. -------- FINAL REPORT -------- Dictated By: Henry Forrester Dictated Date: 05/01/2025 16:39 ET Assigned Physician: Henry Forrester Reviewed and Electronically Signed By: Henry Forrester Signed Date: 05/01/2025 16:39 ET Workstation ID: [id number] Transcribed By: Self Edit Transcribed Date: 05/01/2025 [...] Signed Date: 05/01/2025 16:39 ET Workstation ID: [id number] Transcribed By: Self Edit Transcribed Date: 05/01/2025 [...] Signed Date: 05/02/2025 10:26 ET Workstation ID: [id number] Transcribed By: Self Edit Transcribed Date: 05/02/2025 [...] Signed Date: 05/02/2025 10:26 ET Workstation ID: [id number] Transcribed By: Self Edit Transcribed Date: 05/02/2025 [...] Signed Date: 05/01/2025 16:38 ET Workstation ID: [id number] Transcribed By: Self Edit Transcribed Date: 05/01/2025 [...] Signed Date: 05/01/2025 16:38 ET Workstation ID: [id number] Transcribed By: Self Edit Transcribed Date: 05/01/2025 16:37 ET us Nik Vogt MD IMG XR PROCEDURES Final Result documented in this encounter Visit Diagnoses Diagnosis Periprosthetic fracture around prosthetic joint, initial encounter- Primary Other closed fracture of distal end of right femur, initial encounter ([facility] V24, [facility] V28) Hematoma Contusion of unspecified site Other closed fracture of distal end of right femur, initial encounter ([facility] V24, [facility] V28) Hematoma of left thigh Hematoma of left thigh, subsequent encounter Open wound of right lower extremity, sequela [...] Indication: Bone/Joint, Authorizing ID: Infectious Disease Physician/Fellow Benny Tavera 05/19/2025 8:36 AM EST 1 g 200 [...] mg, oral, Every morning, First dose on Sun05/02/25 at 0700, Hazardous Medication Intact: - Single [...] with each new unit of blood administered documented in this encounter Historical Medications * [...] 2100 2210 (Given - Provider: Willian Mak, FELIPE) 1219 ([facility]G Hold - Provider: Automatic Transfer Provider - Reason: Patient not available)1528 ([facility] Unhold - Provider: Automatic Transfer Provider)2224 (Given - Provider: Willian Mak RN) 2100 (Due) cholecalciferol (VITAMIN D-3) capsule 50,000 Units 50,000 Units, oral, Weekly, First dose on Sun05/03/25 at 0900 0930 (Given - Provider: Kim Norris RN) 1219 ([facility] Hold - Provider: Automatic Transfer Provider - Reason: Patient not available)1528 ([facility] Unhold - Provider: Automatic Transfer Provider) cholestyramine [...] Provider: Kim Norris RN - Reason: NPO)1219 ([facility] Hold - Provider: Automatic Transfer Provider - Reason: Patient not available)1528 ([facility] Unhold - Provider: Automatic Transfer Provider)1625 (Given - Provider: Kim Norris RN) 0836 (Given - Provider: Charlotte Briscoe RN)1700 (Due) dorzolamide (TRUSOPT) 2 % ophthalmic solution 1 drop 1 drop, Both Eyes, 2 times daily, First dose (after last modification) on 05/02/25 at 0900 0924 (Given - Provider: Kim Norris RN)2211 (Given - Provider: Willian Mak RN) 0843 (Given - Provider: Kim Norris RN)1219 ([facility] Hold - Provider: Automatic Transfer Provider - Reason: Patient not available)1528 ([facility] Unhold - Provider: Automatic Transfer Provider)2224 (Given [...] 40 mg, subcutaneous, Daily, First dose on 05/19/25 at 0900, Indication: VTE/PE Prophylaxis 0836 (Given - Provider: Charlotte Briscoe RN) latanoprost (XALATAN) 0.005 % ophthalmic solution 1 drop 1 drop, Both Eyes, Nightly, First dose on Sun05/01/25 at 2100 2211 (Given - Provider: Willian Mak RN) 1219 ([facility] Hold - Provider: Automatic Transfer Provider - Reason: Patient not available)1528 ([facility] Unhold - Provider: Automatic Transfer Provider)222 (Given - Provider: Willian Mak RN) 2100 (Due) magnesium sulfate 2 gram/50 mL (4 %) IVPB 2 g (COMPLETED) 2 g, intravenous, at 25 mL/hr, Administer over 2 Hours, Once, On 05/17/25 at 1345, For 1 dose 1334 (New Bag - Provider: Kim Norris, FELIPE)1544 (Stopped - Provider: Kim Norris RN) meropenem [...] Transfer Provider - Reason: Patient not available)1234 ([facility] Unhold - Provider: Koki Rasmussen MD) meropenem [...] 0842 (Given - Provider: Kim Norris RN)1219 ([facility] Hold - Provider: Automatic Transfer Provider - Reason: Patient not available)1528 ([facility] Unhold - Provider: Automatic Transfer Provider) 0836 (Given - Provider: Charlotte Briscoe RN) PARoxetine (PAXIL) tablet 20 mg 20 mg, oral, Every morning, First dose on Sun05/02/25 at 0700, Hazardous Medication Intact: - Single pair of ASTM standard D6978 certified gloves - Eye/face protection if vomit or potential to spit up - Do NOT split, crush, or open dosage units 0858 (Given - Provider: Kim Norris RN - Comment: on license of [facility] for 8 am) 0842 (Given - Provider: Kim Norris RN - Comment: on license of [facility] for 8)1219 (AUG Hold - Provider: Automatic Transfer Provider - Reason: Patient not available)1528 ([facility] Unhold - Provider: Automatic Transfer Provider) 0836 [...] Transfer Provider - Reason: Patient not available)1528 ([facility] Unhold - Provider: Automatic Transfer Provider)2246 (Not Given - Provider: Willian Mak RN - Reason: Patient/Resident/Agen t refused - education provided ) 2100 (Due) sodium chloride 0.9 % flush 10 mL(Linked Group 1) 10 mL, intravenous, 2 times daily, First dose on Sun05/01/25 at 2100 0859 (Given - Provider: Kim Norris RN)2215 (Given - Provider: Willian Mak, FELIPE) 0843 (Given - Provider: Kim Norris RN)1219 ([facility] Hold - Provider: Automatic Transfer Provider - Reason: Patient not available)1528 ([facility] Unhold - Provider: Automatic Transfer Provider)2224 (Given - Provider: Willian Mak RN) 0853 (Given - Provider: Charlotte Briscoe RN)2100 (Due) PRN Medication Order 05/17/2025 05/18/2025 05/19/2025 acetaminophen (TYLENOL) tablet 650 mg 650 mg, oral, Every 6 hours PRN, mild pain, fever - temperature GREATER than 38 C (100.4 F), Starting on Sun05/01/25 at 1808 1219 ([facility] Hold - Provider: Automatic Transfer Provider - Reason: Patient not available)1528 ([facility] Unhold - Provider: Automatic Transfer Provider) HYDROmorphone (DILAUDID) injection 0.5 mg 0.5 mg, intravenous, Every 3 hours PRN, severe pain, breakthrough severe pain, Starting on Sun05/05/25 at 1342 1219 ([facility] Hold - Provider: Automatic Transfer Provider - Reason: Patient not available)1528 ([facility] Unhold - Provider: Automatic Transfer Provider) naloxone [...] up to 10 doses (0.4 mg) 1219 ([facility] Hold - Provider: Automatic Transfer Provider - Reason: Patient not available)1528 ([facility] Unhold - Provider: Automatic Transfer Provider) ondansetron (PF) (ZOFRAN) injection 4 mg 4 mg, intravenous, Every 6 hours PRN, vomiting, nausea, Starting on Sun05/01/25 at 1808, -ONLY give IV if patient is unable to take orally. -If inadequate response within 30 minutes, proceed to next-line agent or contact provider if no further options ordered. 1219 ([facility] Hold - Provider: Automatic Transfer Provider - Reason: Patient not available)1528 ([facility] Unhold - Provider: Automatic Transfer Provider) oxyCODONE (ROXICODONE) immediate release tablet 2.5 mg 2.5 mg, oral, Every 4 hours PRN, moderate pain, Starting on Sun05/05/25 at 1344 1219 ([facility] Hold - Provider: Automatic Transfer Provider - Reason: Patient not available)1528 ([facility] Unhold - Provider: Automatic Transfer Provider) oxyCODONE (ROXICODONE) immediate release tablet 5 mg 5 mg, oral, Every 4 hours PRN, severe pain, Starting on Sun05/05/25 at 1342 2210 (Given - Provider: Willian Mak RN) 1219 ([facility] Hold - Provider: Automatic Transfer Provider - Reason: Patient not available)1528 ([facility] Unhold - Provider: Automatic Transfer Provider)2224 (Given - Provider: Willian Mak RN) sodium chloride 0.9 % flush 10 mL(Linked Group 1) 10 mL, intravenous, As needed, line care, Starting on Sun05/01/25 at 1808 1219 ([facility] Hold - Provider: Automatic Transfer Provider - Reason: Patient not available)1528 ([facility] Unhold - Provider: Automatic Transfer Provider) sodium [...] each new unit of blood administered 1219 ([facility] Hold - Provider: Automatic Transfer Provider - Reason: Patient not available)1528 ([facility] Unhold - Provider: Automatic Transfer Provider) sodium [...] each new unit of blood administered 1219 ([facility] Hold - Provider: Automatic Transfer Provider - Reason: Patient not available)1528 ([facility] Unhold - Provider: Automatic Transfer Provider) sodium [...] each new unit of blood administered 1219 ([facility] Hold - Provider: Automatic Transfer Provider - Reason: Patient not available)1528 ([facility] Unhold - Provider: Automatic Transfer Provider) Linked [...] Ordered Date acetaminophen (TYLENOL) tablet 650 mg 2 05/01/2025 enoxaparin (LOVENOX) injection 40 mg 5 04/2605/05/2025 HYDROmorphone (DILAUDID) injection 0.5 mg 5 05/18/2025 05/01/2025 lactated Ringer's infusion 3 05/18/2025 1 07/04/2024 meropenem (MERREM) 1 g in so dium chloride 0.9 % 100 mL IVPB 4 05/18/2025 05/15/2025 ondansetron (PF) (ZOFRAN) injection 4 mg 3 05/18/2025 05/01/2025 ondansetron ODT (ZOFRAN-ODT) disintegrating tablet 4 mg 1 05/18/2025 oxyCODONE (ROXICODONE) immed iate release tablet 5 mg 5 05/18/2025 05/01/2025 magnesium sulfate 2 gram/50 mL (4 %) IVPB 2 g 2 05/17/2025 05/02/2025 fentaNYL (PF) (SUBLIMAZE) injection 50 mcg 3 05/15/2025 05/05/2025 acetaminophen (TYLENOL) tablet 1,000 mg 2 1 07/13/2024 05/04/2025 ceFAZolin (ANCEF) 2 g in vero rile water 20 mL IV syringe 3 05/13/2025 05/05/2025 haloperidol lactate (HALDOL) injection 1 mg 2 05/13/2025 05/05/2025 HYDROmorphone (DILAUDID) injection 0.2 mg 1 05/13/2025 lactated Ringer's infusion 1,000 mL 2 05/1305/05/2025 sodium chloride 0.9 % infusion 4 05/09/2025 05/04/2025 diphenhydrAMINE (BENADRYL) i njection 12.5 mg 1 05/05/2025 oxyCODONE (ROXICODONE) immed iate release tablet 2.5 mg 1 05/05/2025 cholecalciferol (VITAMIN D-3 ) capsule 50,000 Units 1 05/03/2025 ferric gluconate (FERRLECIT) 125 mg in sodium chloride 0.9 % 110 mL IVPB 1 05/02/2025 thiamine (VITAMIN B-1) injection 200 mg 1 1 07/02/2024 atorvastatin (LIPITOR) tablet 20 mg 1 05/01 cholestyramine (QUESTRAN) 4 gram packet 4 g 1 05/01/2025 dorzolamide (TRUSOPT) 2 % op hthalmic solution 1 drop 2 05/01/2025 latanoprost (XALATAN) 0.005 % ophthalmic solution 1 drop 1 05/01/2025 metoprolol succinate (TOPROL -XL) 24 Hour tablet 25 mg 1 05/01/2025 morphine injection 4 mg 1 05/01/2025 naloxone (NARCAN) injection 0.04 mg 1 05/01 PARoxetine (PAXIL) tablet 20 mg 1 polyethylene glycol (MIRALAX) packet 17 g 1 05/01/2025 sodium chloride 0.9 % flush 10 mL 2 025 Diet Count Last Ordered Date First Orde red Date ADULT NPO DIET 1 05/19/2025 ADULT DIET 1 05/18/2025 Nursing Count Last Ordered Date First Orde red Date APPLY WOUND VAC 1 05/13/2025 WEIGHT BEARING RESTRICTIONS 1 05/13/2025 [id number] 4 05/09/2025 05/04/2025 APPLY (EQUIPMENT) 1 05/05/2025 [...] documented as of this encounter Care Teams Wardrobe Coordinator Relationship Specialty Start Date End Date Lilliam Levy MD [address] [place] [address] PCP - General Internal Medicine 07/11/21 documented as of this encounter
--- OUTSIDE RECORDS SUMMARY | 2025-05-15 11:48 | XMS_ITS | Encounter Summary ---
Author Organization [facility] Address [address] [place] [address] Care Team Providers Care Waste Transportation Technician Name Role Phone Lilliam Levy MD Primary Care Provider Reason for Visit * Auth/Cert (Routine) Specialty Diagnoses / Procedures Referred By Contricha t Referred To Contact Diagnoses Periprosthetic fracture around prosthetic joint, initial encounter Procedures / Miguelangel Winn MD [address] [place] [address] Phone: tel: fax: [facility] Emergency [address] [place] [address] Phone: tel: Referral ID Status Reason Start Date Expiration Date Visits Re quested Visits Authorized [id number] 1 1 Encounter Details Date Type Department Care Team (Late st Contact Info) Description 05/15/2025 11:48 AM EST Anesthesia Event [facility] Main OR [address] [place] [address] Anselmo Colon MD [address] [place] [address] [address] [place] [address] Anesthesia Record Procedure Summary Procedure Name Responsible Anesthesiologist Anesthesia Start Time Anesthesia Stop Time INCISION DRAINAGE EXTREMITY LOWER WITH WOUND VAC CHANGE (Right: Leg Lower) Anselmo Colon MD 05/15/25 1148 05/15/25 1246 Events Date Time Event Comment 05/15/2025 1133 1148 An Start 1148 An Start Data The patient wa s reevaluated immediately before moderate or deep sedation use and before anesthesia induction. 1149 In Room 1152 An Induction 1157 An Intubation 1158 Anesthesia Ready 1212 Proc Start 1233 Proc Fin 1240 An Extubation 1240 an stop data 1242 Out of Room 1246 Handoff to RN I completed my handoff to the receiving nurse during which we: 1. Identified the patient 2. Identified the responsible provider 3. Reviewed the pertinent medical history 4. Discussed the surgical course 5. Reviewed intra-op anesthesia management and issues during anesthesia 6. Set expectations for post-procedure period 7. Allowed opportunity for questions and acknowledgement of understanding. 1246 An Stop Meds Name Total propofol (DIPRIVAN) injection 10 mg/mL 1 00 mg fentaNYL (SUBLIMAZE) injection 50 mcg ondansetron 2 mg/mL 4 mg lidocaine PF (XYLOCAINE-MPF) local injec tion 2% 60 mg dexamethasone (DECADRON) injection 4 mg/ mL 4 mg ceFAZolin (ANCEF) 2 g in sterile water 2 0 mL IV syringe 2 g lactated Ringer's infusion 300 mL * Agents Name O2 N2O Air Sevoflurane Inspired Sevoflurane * Blood No blood administrations on file. Lines, Drains, and Airways Type Details Placement Removal Wound Incision; 04/03/25; Hip; Right, Lateral, Proximal, Distal 04/03/25 0000 by Anahi Jackson RN Wound Incision; Thigh; Anterior, Proximal, Right 04/13/25 1352 by Wound Pressure inj; 05/02/25; 0500; Coccyx; wound healed looks like a dry scab; Healed 05/02/25 0500 by Tiffany Mcmanus RN Peripheral IV Placement Date: 05/13/25; Placement Time: 954; Catheter Size: 20 G; Orientation: Right; Location: Forearm; Site Prep: Chlorhexidine; Local Anesth: None; Inserted by: Nik Edmondson; Insertion Attempts: 1; Patient Tolerance: (placed under GA); Removal Date: 05/15/25; Removal Time: 1651; Removal Reason: Drainage 05/13/25 0955 by Nik Edmondson MD 05/15/25 1651 by Cely Piña, FELIPE Negative Pressure Wound Therapy 05/13/25; 1200; Open surgical incision; Leg; Anterior, Proximal, Right, Upper; 05/18/25; 1345 05/13/25 1200 by Charlotte Briscoe RN 05/18/25 1345 by Vishal Swartz RN Supraglottic Airway Placement Date: 05/15/25; Placement Time: 1157; Mask Ventilation: 1; Brand: LMA; Size: 4; Insertion Attempts: 1; Placement Verification: End tidal CO2; Removal Date: 05/15/25; Removal Time: 1240 05/15/25 1157 by Anselmo Colon MD 05/15/25 1240 by Anselmo Colon MD documented in this encounter Social History Tobacco [...] for your loved ones. For example, child psychiatrist or elderly care for an older adult? [...] AM EST documented as of this encounter Progress Notes * Anselmo Colon MD - 05/15/2025 12:46 PM EST Patient: Isabella Grace Procedure Summary Date: 05/15/25 Room / Location: [facility] OR / [facility] OR Anesthesia Start: 1148 Anesthesia Stop: 1246 Procedure: INCISION DRAINAGE EXTREMITY LOWER WITH WOUND VAC CHANGE (Right: Leg Lower) Diagnosis: Hematoma of left thigh, subsequent encounter Surgeons: Gris Mojica MD Responsible Provider: Anselmo Colon MD Anesthesia Type: general ASA Status: 3 Anesthesia Plan: general Last Vitals: Vitals Value Taken Time BP 129/74 05/15/25 12:46 Temp 98.4 05/15/25 12:46 Pulse 86 05/15/25 12:46 Resp 17 05/15/25 12:46 SpO2 100 05/15/25 12:46 Pain Score: 2 Anesthesia Post Evaluation Patient location during evaluation: PACU Patient participation: complete - patient participated Level of consciousness: awake Pain management: adequate Airway patency: patent Anesthetic complications: no Cardiovascular status: acceptable Respiratory status: acceptable Hydration status: acceptable Comments: Patient seen and evaluated prior to discharge from PACU. Note may have been written at a later time due to clinical necessity. Nausea: No Vomiting: No There were no known notable events for this encounter. * Anselmo Colon MD - 05/15/2025 8:02 AM EST 84 y.o. female scheduled for Periprosthetic fracture around prosthetic joint, initial encounter; Other * [INCISION DRAINAGE EXTREMITY LOWER (Right: Leg Lower)] Ht Readings from Last 1 Encounters: 05/01/25 1.651 m (65 ) Wt Readings from Last 1 Encounters: 05/04/25 47.6 kg (105 lb) Body mass index is 17.47 kg/m??. Medical History[1] Surgical History[2] Anesthesia complications Denies Allergies[3] Prior to Admission medications Medication Sig Start [...] not taking: Reported on 04/09/2025 Historical Provider, I have personally reviewed all the patient's medications with them prior to anesthesia. Current In-hospital Medications MEDSSCHEDULED[4] MEDSCONTINUOUS[5] MEDSPRN[6] Social History[7] Is the patient a current smoker (e.g. cigarette, cigar, pip, e-cigarette, or mariajuana)? Yes [] No[] Patient previously instructed to abstain from smoking on the day of procedure? Yes [] No[] Patient smoked on the day of procedure? Yes [] No[] ASPIRE smoking VBR: [] Not interested in quitting [] Interested in quitting- referred to treatment [] Interested in quitting - treatment provided Visit Vitals BP 135/87 (BP Location: Left arm) Pulse 87 Temp 36.6 ??C (97.9 ??F) (Temporal) Resp 15 Ht 1.651 m (65 ) Wt 47.6 kg (105 lb) SpO2 99% BMI 17.47 kg/m?? Smoking Status Former BSA 1.5 m?? LABS: Lab Results Component Value Date WBC 8.8 05/15/2025 HGB 9.1 (L) 05/15/2025 HCT 29.4 (L) 05/15/2025 MCV 94.5 05/15/2025 PLT 454 (H) 05/15/2025 Lab Results Component Value Date GLUCOSE 79 05/15/2025 CALCIUM 7.9 (L) 05/15/2025 NA 143 05/15/2025 K 4.7 05/15/2025 CO2 33 (H) 05/15/2025 CL 104 05/15/2025 BUN 35 (H) 05/15/2025 CREATININE 0.87 05/15/2025 Lab Results Component Value Date INR 1.1 05/04/2025 INR 1.1 04/09/2025 INR 1.0 04/01/2025 No results found for: PTT Relevant Problems Cardio (+) Atrial fibrillation (CMS/HCC V24, CMS/HCC V28) (+) Atrial fibrillation with rapid ventricular response (CMS/HCC V24, CMS/HCC V28) (+) CHF (congestive heart failure) (CMS/HCC V24, CMS/HCC V28) (+) Coronary artery disease involving [place] heart without angina pectoris (+) HTN (hypertension) (+) Mitral valve regurgitation Pulmonary (+) Chronic obstructive pulmonary disease (CMS/HCC V24, CMS/HCC V28) Clinical information reviewed: Tobacco Allergies Meds Problems Med Hx Surg Hx Fam Hx Soc Hx Anesthesia Plan ASA 3 Anesthesia Plan: general General Anesthesia Considerations: LMA Anesthesia Risks Discussed dental injury, nausea, pain, sore throat, corneal abrasion, allergic reaction and serious complications Induction method: intravenous Anesthetic plan and risks discussed with patient. Anesthesia Evaluation No history of anesthetic complications Airway Mallampati: II Thyromental distance: > 3 finger breadths Neck ROM: fullnot intubatedno noted risk Dental - normal exam Pulmonary breath sounds clear to auscultation (+) COPD Cardiovascular (+) hypertension, valvular problems/murmurs (S/P MVR 2014), CAD (NSTEMI 2020), CHF Rhythm: regular Rate: normal ROS comment: Echo 11/2024: EF 40-45%, mild LV hypokinesis S/p MV replacement 2014 Neuro/Psych - negative ROS GI/Hepatic/Renal - negative ROS Endo/Other - negative ROS Abdominal PONV RISK SCORE: 3 Vitals: 05/14/25 1414 05/14/25 1939 05/15/25 0220 05/15/25 0742 BP: 107/82 110/75 114/77 135/87 BP Location: Left arm Left arm Left arm Left arm Patient Position: Sitting Lying Lying Pulse: 98 97 84 87 Resp: 16 14 15 15 Temp: 36.9 ??C (98.5 ??F) 36.8 ??C (98.3 ??F) 36.4 ??C (97.5 ??F) 36.6 ??C (97.9 ??F) TempSrc: Temporal Temporal Temporal Temporal SpO2: 97% 96% 97% 99% Weight: Height: SpO2 Readings from Last 1 Encounters: 05/15/25 99% WBC Date Value Ref Range Status 05/15/2025 8.8 4.8 - 10.8 K/mcL Final RBC Date Value Ref Range Status 05/15/2025 3.10 (L) 3.80 - 4.80 M/mcL Final Hemoglobin Date Value Ref Range Status 05/15/2025 9.1 (L) 11.5 - 16.0 g/dL Final Hematocrit Date Value Ref Range Status 05/15/2025 29.4 (L) 35.0 - 47.0 % Final Platelets Date Value Ref Range Status 05/15/2025 454 (H) 130 - 400 K/mcL Final MCV Date Value Ref Range Status 05/15/2025 94.5 79.0 - 98.0 FL Final Allergies[8] STOP BANG: No data recorded NPO Status: No data recorded [1] Past Medical History: Diagnosis Date ??? Atrial fibrillation ([facility] V24, [facility] V28) 01/17/2021 DX:Atrial fibrillation ([facility]) ??? CHF (congestive heart failure) ([facility] V24, [facility] V28) 01/17/2021 DX:CHF (congestive heart failure) ([facility]) ??? Clostridium difficile diarrhea 03/26/2024 DX:Clostridium difficile diarrhea ??? Depression 01/17/2021 DX:Depression ??? Hypertension ??? NSTEMI (non-ST elevated myocardial infarction) ([facility] V24, [facility] V28) 01/17/2021 DX:NSTEMI (non-ST elevated myocardial infarction) ([facility]); COMMENT: 12/2020 Dr Eller, holter monitor and cardiac cath as outpt. ??? NSTEMI (non-ST elevated myocardial infarction) ([facility] V24, [facility] V28) 01/17/202112/2020 Dr Eller, holter monitor and cardiac cath as outpt. ??? Pubic ramus fracture ([facility] V24, [facility] V28) 11/30/2021 DX:Pubic ramus fracture ([facility]) ??? Takotsubo cardiomyopathy 01/17/2021 DX:Takotsubo cardiomyopathy [2] Past Surgical History: Procedure Laterality Date ??? JOINT REPLACEMENT ??? OTHER SURGICAL HISTORY PROCEDURE: HISTORICAL MITRAL VALVE REPL ??? OTHER SURGICAL HISTORY PROCEDURE: HISTORY OTHER; COMMENT: right humerus fracture ??? TONSILLECTOMY PROCEDURE: HISTORICAL TONSILLECTOMY [3] No Known Allergies [4] atorvastatin, 20 mg, oral, Nightly ceFAZolin, 2 g, intravenous, q8h cholecalciferol, 50,000 Units, oral, Weekly cholestyramine, 4 g, oral, BID with meals dorzolamide, 1 drop, Both Eyes, BID [Held by provider] enoxaparin, 40 mg, subcutaneous, Daily latanoprost, 1 drop, Both Eyes, Nightly metoprolol succinate, 25 mg, oral, Daily PARoxetine, 20 mg, oral, q AM polyetheylene glycol, 17 g, oral, Nightly sodium chloride, 10 mL, intravenous, BID [5] [6] PRN medications: acetaminophen, HYDROmorphone, naloxone, ondansetron, oxyCODONE, oxyCODONE, Insert peripheral IV AND Maintain IV access AND Saline lock IV AND sodium chloride AND sodium chloride, sodium chloride, sodium chloride, sodium chloride [7] Social History Tobacco Use ??? Smoking status: Former Current packs/day: 0.00 Average packs/day: 0.5 packs/day Types: Cigarettes Quit date: 11/23/2020 Years since quittin.4 ??? Smokeless tobacco: Never Vaping Use ??? Vaping status: Never Used Substance Use Topics ??? Alcohol use: Yes Alcohol/week: 1.0 standard drink of alcohol Types: 1 Glasses of wine per week Comment: once a week ??? Drug use: Never [8] No Known Allergies documented in this encounter Plan of Treatment Upcoming Encounters Date Type Department Care Team (Late st Contact Info) Description 05/22/2025 7:30 AM EST - 05/22/2025 9:00 AM EST Surgery [facility] Main OR [address] [place] [phone] Gris Mojica MD [address] [place] [phone] DEBRIDEMENT WOUND RIGHT DISTAL FEMUR 05/27/2025 11:00 AM EST Office Visit General Surgery - [place] [address] [facility] [address] [place] [phone] Marcellus Powell DO [address] [place] [phone] 06/02/2025 3:15 PM EST Appointment Bone Density [address] [address] 06/11/2025 2:30 PM EST Office Visit Adult Medicine - [place] [address] [place] [phone] Lilliam Levy MD [address] [place] [address] 08/06/2025 10:50 AM EST Office Visit [facility] [address] [facility] [address] [place] [phone] Bhaskar Becker MD [address] [place] [address] [place] [phone] Scheduled Procedures Name Priority Associated Diagnoses Date/Ti [...] myra Goal Care Plan Autogenerated Problem No Kamilla Swan PA Autogenera myra Goal Care Plan Autogenerated Problem No Kamilla Swan PA documented as of this encounter Visit Diagnoses Not on filedocumented in this encounter Administered Medications Inactive Administered Medications - up to 3 most recent administrations Medication Order MAR Action Action Date Dose Rate Site ceFAZolin (ANCEF) 2 g in sterile water [...] Given 05/14/2025 5:24 PM EST 2 g dexAMETHasone (DECADRON) injection intravenous, As needed, Starting on Sun05/15/25 at 1212, Anesthesia Intraprocedure Given 05/15/2025 12:12 PM EST 4 mg fentaNYL (PF) (SUBLIMAZE) injection intravenous, As needed, Starting on Sun05/15/25 at 1152, Anesthesia Intraprocedure Given 05/15/2025 12:13 PM EST 25 mcg Given 05/15/2025 11:52 AM EST 25 mcg lactated Ringer's infusion 75 mL/hr, intravenous, Continuous, Starting on Sun05/15/25 at 1300, Recovery (only) Restarted 05/15/2025 12:28 PM EST New Bag 05/15/2025 11:49 AM EST 125 mL/hr lidocaine (PF) (XYLOCAINE-MPF) 2 % injection injection, As needed, Starting on Sun05/15/25 at 1152, Anesthesia Intraprocedure Given 05/15/2025 11:52 AM EST 60 mg ondansetron (PF) (ZOFRAN) injection intravenous, As needed, Starting on Sun05/15/25 at 1230, Anesthesia Intraprocedure Given 05/15/2025 12:30 PM EST 4 mg propofoL (DIPRIVAN) injection intravenous, As needed, Starting on Sun05/15/25 at 1152, Anesthesia Intraprocedure Given 05/15/2025 11:52 AM EST 100 mg documented in this encounter Additional Health Concerns Active Problems Noted Date Diagnosed Date Autogenerated Problem 04/02/2025 Autogenerated Problem 04/09/2025 Autogenerated Problem 04/13/2025 Autogenerated Problem 04/13/2025 Autogenerated Problem 05/04/2025 Autogenerated Problem 05/12/2025 Autogenerated Problem 05/14/2025 Assessment Noted Time PHQ-9 Depression Total Score: 1 02/05/20 12:33 PM EDT documented as of this encounter Care Teams Waste Transportation Technician Relationship Specialty Start Date End Date Lilliam Levy MD [address] [place] [id number] PCP - General Internal Medicine 07/11/21 documented as of this encounter
--- OUTSIDE RECORDS SUMMARY | 2025-05-18 12:58 | XMS_ITS | Encounter Summary ---
Author Organization [facility] Address [address] [place] [address] Care Team Providers Care Healthcare Administrative Assistant Name Role Phone Lilliam Levy MD Primary Care Provider Reason for Visit * Auth/Cert (Routine) Specialty Diagnoses / Procedures Referred By Brenda jack Referred To Contact Diagnoses Periprosthetic fracture around prosthetic joint, initial encounter Procedures / Miguelangel Winn MD [address] [place] [phone] Phone: tel: fax: [facility] [address] [place] [address] Phone: tel: Referral ID Status Reason Start Date Expiration Date Visits Re quested Visits Authorized [id number] 1 1 Encounter Details Date Type Department Care Team (Late st Contact Info) Description 05/18/2025 12:58 PM EST Anesthesia Event [facility] OR [address] [place] [address] Chris Campos, [address] [place] [address] Yolis Christensen, LING [address] [place] [address] Anesthesia Record Procedure Summary Procedure Name Responsible Anesthesiologist Anesthesia Start Time Anesthesia Stop Time INCISION DRAINAGE RIGHT HIP WITH POSSIBLE CLOSURE (Right: Leg Lower) Chris Campos DO 05/18/25 1258 05/18/25 1409 Events Date Time Event Comment 05/18/2025 1234 1258 In Room 1258 An Start 1258 An Start Data The patient wa s reevaluated immediately before moderate or deep sedation use and before anesthesia induction. 1308 An Induction 1311 An Intubation 1331 Anesthesia Ready 1334 Proc Start 1356 Proc Fin 1357 An Extubation 1402 an stop data 1404 Out of Room 1409 Handoff to RN I completed my handoff to the receiving nurse during which we: 1. Identified the patient 2. Identified the responsible provider 3. Reviewed the pertinent medical history 4. Discussed the surgical course 5. Reviewed intra-op anesthesia management and issues during anesthesia 6. Set expectations for post-procedure period 7. Allowed opportunity for questions and acknowledgement of understanding. 1409 An Stop Meds Name Total propofol (DIPRIVAN) injection 10 mg/mL 1 50 mg fentaNYL (SUBLIMAZE) injection 25 mcg lidocaine PF (XYLOCAINE-MPF) local injec tion 2% 100 mg phenylephrine 1 mg/10 mL (100 mcg/mL) in 0.9% NaCl IV syringe 400 mcg lactated Ringer's infusion 300 mL * Agents [...] Tiffany Mcmanus RN Peripheral IV Placement Date: 05/15/25; Placement Time: 1708; Catheter Size: 22 G (1 ); Orientation: Left, Posterior; Location: Forearm; Site Prep: Chlorhexidine; Local Anesth: None; Inserted by: Lamar Babb; Insertion Attempts: 1; Patient Tolerance: Tolerated well 05/15/251708 by Lamar Deleon RN Negative Pressure Wound Therapy 05/18/25; 1352; Leg; Anterior, Proximal, Right, Upper 05/18/25 1352 by Vishal Swartz RN Negative Pressure Wound Therapy 05/13/25; 1200; Open surgical incision; Leg; Anterior, Proximal, Right, Upper; 05/18/25; 1345 05/13/25 1200 by Charlotte Briscoe RN 05/18/25 1345 by Vishal Swartz RN LMA 05/18/25; 1308 (created via procedure documentation); 4; Classic; 05/18/25; 1401 05/18/25 1308 by Yolis Christensen CRNA 05/18/25 1401 by Yolis Christensen CRNA documented in this encounter Social History Tobacco [...] care for your loved ones. For example, early childhood director or elderly care for an older adult? [...] as of this encounter Progress Notes * Yolis Christensen CRNA - 05/18/2025 2:09 PM EST Patient: Isabella Grace Procedure Summary Date: 05/18/25 Room / Location: [facility] OR 03 / [facility] OR Anesthesia Start: 1258 Anesthesia Stop: 1409 Procedure: INCISION DRAINAGE RIGHT HIP WITH POSSIBLE CLOSURE VS WOUND VAC PLACEMENT (Right: Leg Lower) Diagnosis: Open wound of right lower extremity, sequela Surgeons: Bhaskar Palomino MD Responsible Provider: Chris Campos DO Anesthesia Type: general ASA Status: 3 Anesthesia Plan: general Last Vitals: Vitals Value Taken Time BP 130/79 05/18/25 14:09 Temp 98.3 05/18/25 14:09 Pulse 76 05/18/25 14:09 Resp 20 05/18/25 14:09 SpO2 98 05/18/25 14:09 Pain Score: 0 - No pain Anesthesia Post Evaluation Patient location during evaluation: PACU Patient participation: complete - patient participated Level of consciousness: awake Pain management: adequate Airway patency: patent Anesthetic complications: no Cardiovascular status: acceptable Respiratory status: face mask Hydration status: acceptable Nausea: No Vomiting: No There were no known notable events for this encounter. * Yolis Christensen CRNA - 05/18/2025 1:37 PM ESTAssociated Order(s): Intubation General Information and Staff Patient location during procedure: OR Performed by: Yolis Christensen CRNA Authorized by: Chris Campos DO Intubation Airway not difficult Reason: elective Final Airway Details Ventilation between attempts: supraglottic airway LMA Size: 4 LMA Type: Classic LMA Seal Pressure: Final airway type: LMA Indications and Patient Condition Indications for airway management: anesthesia Sedation level: No Preoxygenated: yesSoft Tissue Damage: No Dentition Unchanged: Yes Patient position: neutral MILS not maintained throughout Mask difficulty assessment: 0 - not attempted Start Time: 05/18/2025 1:08 PMStop Time: 05/18/2025 1:11 PM * Chris Campos DO - 05/18/2025 12:33 PM EST 84 y.o. female scheduled for Periprosthetic fracture around prosthetic joint, initial encounter; Other * [INCISION DRAINAGE RIGHT HIP WITH POSSIBLE CLOSURE VS WOUND VAC PLACEMENT (Right: Leg Lower)] Ht Readings from Last 1 Encounters: 05/01/25 1.651 m (65 ) Wt Readings from Last 1 Encounters: 05/04/25 47.6 kg (105 lb) Body mass index is 17.47 kg/m??. Medical History[1] Surgical History[2] Denies anesthesia complications Allergies[3] Medications Ordered Prior to Encounter[4] Current In-hospital Medications Prior to Admission medications Medication Sig Start [...] Patient not taking: Reported on 04/09/2025 Historical ProviderMD Social History[5] Is the patient a current smoker (e.g. [...] quitting - treatment provided Visit Vitals BP 123/72 (BP Location: Right arm, Patient Position: Lying) Pulse 80 Temp 37 ??C (98.6 ??F) Resp 20 Ht 1.651 m (65 ) Wt 47.6 kg (105 lb) SpO2 98% BMI 17.47 kg/m?? Smoking Status Former BSA 1.5 m?? LABS: Lab Results Component Value Date WBC 8.3 05/18/2025 HGB 9.3 (L) 05/18/2025 HCT 30.0 (L) 05/18/2025 MCV 94.6 05/18/2025 PLT 441 (H) 05/18/2025 Lab Results Component Value Date GLUCOSE 82 05/18/2025 CALCIUM 8.1 (L) 05/18/2025 NA 142 05/18/2025 K 4.5 05/18/2025 CO2 33 (H) 05/18/2025 CL 103 05/18/2025 BUN 34 (H) 05/18/2025 CREATININE 0.78 05/18/2025 Lab Results Component Value Date INR 1.1 05/04/2025 INR 1.1 04/09/2025 INR 1.0 04/01/2025 No results found for: PTT EKG Encounter Date: 04/09/25 ECG 12 lead Result Value Ventricular Rate ECG 132 QRS Duration 98 Q-T Interval 264 QTc 391 R Killeen 34 T Killeen 77 ECG Interpretation Atrial fibrillation with rapid ventricular response with premature ventricular or aberrantly conducted complexes Moderate voltage criteria for LVH, may be normal variant ( Sokolow-Gurrola , Crooks product ) ST and T wave abnormality, consider lateral ischemia When compared with ECG of 01-APR-2025 10:57, T wave inversion more evident in Lateral leads Confirmed by ROQUE ROSSI ([id number]) on 04/09/2025 8:59:17 PM *Note: Due to a large number of results and/or encounters for the requested time period, some results have not been displayed. A complete set of results can be found in Results Review. ECHO 03/13/25 TRANSTHORACIC ECHOCARDIOGRAM (TTE) COMPLETE (CONTRAST/BUBBLE/3D PRN) [...] Bhaskar Becker MD on 03/20/2025 11:40 AM CATH No results found for this or any previous visit. Relevant Problems Cardio (+) Atrial fibrillation (CMS/HCC V24, CMS/HCC V28) (+) Atrial fibrillation with rapid ventricular response (CMS/HCC V24, CMS/HCC V28) (+) CHF (congestive heart failure) (CMS/HCC V24, CMS/HCC V28) (+) Coronary artery disease involving morongo heart without angina pectoris (+) HTN (hypertension) (+) Mitral valve regurgitation Pulmonary (+) Chronic obstructive pulmonary disease (CMS/HCC V24, CMS/HCC V28) Clinical information reviewed: Tobacco Allergies Meds Problems Med Hx Surg Hx Fam Hx Soc Hx Anesthesia Plan ASA 3 Anesthesia Plan: general Anesthesia Risks Discussed serious complications Induction method: intravenous Anesthetic plan and risks discussed with patient. Anesthesia Evaluation Patient summary reviewed Airway Mallampati: II Dental - normal exam Pulmonary - normal exam (+) COPD Cardiovascular - normal exam (+) hypertension, CAD, CHF Neuro/Psych GI/Hepatic/Renal Endo/Other Abdominal PONV RISK SCORE: 3 Vitals: 05/17/25 1507 05/17/25 1954 05/18/25 0340 05/18/25 0759 BP: 128/79 110/71 131/87 123/72 BP Location: Left arm Right arm Right arm Patient Position: Sitting Lying Lying Pulse: 94 88 80 80 Resp: 16 16 16 20 Temp: 37 ??C (98.6 ??F) 36.6 ??C (97.9 ??F) 36.4 ??C (97.5 ??F) 37 ??C (98.6 ??F) TempSrc: Oral Oral SpO2: 95% 94% 95% 98% Weight: Height: SpO2 Readings from Last 1 Encounters: 05/18/25 98% WBC Date Value Ref Range Status 05/18/2025 8.3 4.8 - 10.8 K/mcL Final RBC Date Value Ref Range Status 05/18/2025 3.20 (L) 3.80 - 4.80 M/mcL Final Hemoglobin Date Value Ref Range Status 05/18/2025 9.3 (L) 11.5 - 16.0 g/dL Final Hematocrit Date Value Ref Range Status 05/18/2025 30.0 (L) 35.0 - 47.0 % Final Platelets Date Value Ref Range Status 05/18/2025 441 (H) 130 - 400 K/mcL Final MCV Date Value Ref Range Status 05/18/2025 94.6 79.0 - 98.0 FL Final Allergies[6] STOP BANG: No data recorded NPO Status: No data recorded [1] Past Medical History: Diagnosis Date Atrial fibrillation ([facility] V24, [facility] V28) 01/17/2021 DX:Atrial fibrillation ([facility]) CHF (congestive heart failure) ([facility] V24, [facility] V28) 01/17/2021 DX:CHF (congestive heart failure) ([facility]) Clostridium difficile diarrhea 03/26/2024 DX:Clostridium difficile diarrhea Depression 01/17/2021 DX:Depression Hypertension NSTEMI (non-ST elevated myocardial infarction) ([facility] V24, [facility] V28) 01/17/2021 DX:NSTEMI (non-ST elevated myocardial infarction) ([facility]); COMMENT: 12/2020 Dr Eller, holter monitor and cardiac cath as outpt. NSTEMI (non-ST elevated myocardial infarction) ([facility] V24, [facility] V28) 01/17/202112/2020 Dr Eller, holter monitor and cardiac cath as outpt. Pubic ramus fracture ([facility] V24, [facility] V28) 11/30/2021 DX:Pubic ramus fracture ([facility]) Takotsubo cardiomyopathy 01/17/2021 DX:Takotsubo cardiomyopathy [2] Past Surgical History: Procedure Laterality Date JOINT REPLACEMENT OTHER SURGICAL HISTORY PROCEDURE: HISTORICAL MITRAL VALVE REPL OTHER SURGICAL HISTORY PROCEDURE: HISTORY OTHER; COMMENT: right humerus fracture TONSILLECTOMY PROCEDURE: HISTORICAL TONSILLECTOMY [3] No Known Allergies [4] No current facility-administered medications on file prior to encounter. Current Outpatient Medications on File Prior to Encounter Medication Sig Dispense Refill apixaban (Eliquis) 2.5 mg tablet TAKE 1 TABLET BY MOUTH TWICE A DAY 60 tablet 5 atorvastatin (LIPITOR) 20 mg tablet Take 1 tablet (20 mg total) by mouth 1 (one) time each day. (Patient taking differently: Take 1 tablet (20 mg total) by mouth at bedtime.) 90 tablet 1 cholestyramine (QUESTRAN) 4 gram packet TAKE 1 PACKET BY MOUTH 2 TIMES A DAY WITH MEALS. (Patient taking differently: Take 1 packet (4 g total) by mouth 2 (two) times a day with meals.) 180 packet 0 dorzolamide (TRUSOPT) 2 % ophthalmic solution Administer 1 drop into the left eye 2 (two) times a day. latanoprost (XALATAN) 0.005 % ophthalmic solution Administer 1 drop into both eyes at bedtime. metoprolol succinate (TOPROL-XL) 25 mg 24 hr tablet TAKE 1 TABLET BY MOUTH EVERY DAY 90 tablet 1 PARoxetine (PAXIL) 20 mg tablet TAKE 1 TABLET BY MOUTH EVERY DAY IN THE MORNING 90 tablet 0 dorzolamide-timoloL (COSOPT) 22.3-6.8 mg/mL ophthalmic solution Administer 1 drop into both eyes 2 (two) times a day. (Patient not taking: Reported on 05/01/2025) multivit-min/iron/folic acid/K (ADULTS MULTIVITAMIN ORAL) Take by mouth daily. (Patient not taking:Reported on 04/09/2025) [5] Social History Tobacco Use Smoking status: Former Current packs/day: 0.00 Average packs/day: 0.5 packs/day Types: Cigarettes Quit date: 11/23/2020 Years since quittin.4 Smokeless tobacco: Never Vaping Use Vaping status: Never Used Substance Use Topics Alcohol use: Yes Alcohol/week: 1.0 standard drink of alcohol Types: 1 Glasses of wine per week Comment: once a week Drug use: Never [6] No Known Allergies documented in this encounter Plan of Treatment Upcoming Encounters Date Type Department Care Team (Late st Contact Info) Description 05/22/2025 7:30 AM EST - 05/22/2025 9:00 AM EST Surgery [facility] OR [address] [place] [phone] Gris Mojica MD [address] [place] [phone] DEBRIDEMENT WOUND RIGHT DISTAL FEMUR 05/27/2025 11:00 AM EST Office Visit General Surgery - [place] [address] [facility] [address] [place] [phone] Marcellus Powell, [address] [place] [phone] 06/02/2025 3:15 PM EST Appointment Bone Density - [address] [phone] 06/11/2025 2:30 PM EST Office Visit Adult Medicine - [place] [address] [place] [phone] Lilliam Levy MD [address] [place] [address] 08/06/2025 10:50 AM EST Office Visit [facility] [address] [facility] [address] [place] [phone] Bhaskar Becker MD [address] [place] [address] [place] [address] Scheduled Procedures Name Priority Associated Diagnoses Date/Ti [...] PA documented as of this encounter Procedures Procedure Name Priority Date/Time Associated Diagnosis Comments TH AN LMA(NO CHARGE) Routine 05/18/2025 1:37 PM EST documented in this encounter Results * TH AN LMA(NO CHARGE) (05/18/2025 1:37 PM EST) Yolis Monge CRNA - 05/18/2025 1:37 PM EST Yolis Christensen CRNA 05/18/2025 1:37 PM General Information and Staff Patient location during procedure: OR Performed by: Yolis Christensen CRNA Authorized by: Chris Campos DO Intubation Airway not difficult Reason: elective Final Airway Details Ventilation between attempts: supraglottic airway LMA Size: 4 LMA Type: Classic LMA Seal Pressure: Final airway type: LMA Indications and Patient Condition Indications for airway management: anesthesia Sedation level: No Preoxygenated: yesSoft Tissue Damage: No Dentition Unchanged: Yes Patient position: neutral MILS not maintained throughout Mask difficulty assessment: 0 - not attempted Start Time: 05/18/2025 1:08 PMStop Time: 05/18/2025 1:11 PM Chris Campos DO ANESTHESIA ORDERABLES Final Result documented in this encounter Visit Diagnoses Not on filedocumented in this encounter Administered Medications Inactive Administered Medications - up to 3 most recent administrations Medication Order MAR Action Action Date Dose Rate Site fentaNYL (PF) (SUBLIMAZE) injection intravenous, As needed, Starting on Sun05/18/25 at 1328, Anesthesia Intraprocedure Given 05/18/2025 1:28 PM EST 25 mcg lactated Ringer's infusion intravenous, Continuous PRN, Starting on Sun05/18/25 at 1258, Anesthesia Intraprocedure New Bag 05/18/2025 12:58 PM EST 100 mL/hr lidocaine (PF) (XYLOCAINE-MPF) 2 % injection injection, As needed, Starting on Sun05/18/25 at 1332, Anesthesia Intraprocedure Given 05/18/2025 1:32 PM EST 100 mg phenylephrine (RADHA-SYNEPHRINE) injection intravenous, As needed, Starting on Sun05/18/25 at 1334, Anesthesia Intraprocedure Given 05/18/2025 1:40 PM EST 100 mcg Given 05/18/2025 1:34 PM EST 100 mcg Given 05/18/2025 1:17 PM EST 200 mcg propofoL (DIPRIVAN) injection intravenous, As needed, Starting on Sun05/18/25 at 1332, Anesthesia Intraprocedure Given 05/18/2025 1:[address] 150 mg documented in this encounter Additional Health Concerns Active Problems Noted Date Diagnosed Date Autogenerated Problem 04/02/2025 Autogenerated Problem 04/09/2025 Autogenerated Problem 04/13/2025 Autogenerated Problem 04/13/2025 Autogenerated Problem 05/04/2025 Autogenerated Problem 05/12/2025 Autogenerated Problem 05/14/2025 Autogenerated Problem 05/18/2025 Assessment Noted Time PHQ-9 Depression Total Score: 1 02/05/20 12:33 PM EDT documented as of this encounter Care Teams Healthcare Administrative Assistant Relationship Specialty Start Date End Date Lilliam Levy MD [address] [place] [id number] PCP - General Internal Medicine 07/11/21 documented as of this encounter
--- OUTSIDE RECORDS SUMMARY | 2025-05-18 13:00 | XMS_ITS | Encounter Summary ---
Author Organization [facility] Address [address] [place] [address] Care Team Providers Care Casino Shift Manager Name Role Phone Lilliam Levy MD Primary Care Provider Reason for Visit * Reason Comments Leg Injury Right hip/distal fem ur * Auth/Cert (Routine) Specialty Diagnoses / Procedures Referred By Contricha t Referred To Contact Diagnoses Periprosthetic fracture around prosthetic joint, initial encounter Procedures / Miguelangel Winn MD [address] [place] [phone] Phone: tel: fax: [facility] [address] [place] [address] Phone: tel: Referral ID Status Reason Start Date Expiration Date Visits Re quested Visits Authorized [id number] 1 1 Encounter Details Date Type Department Care Team (Late st Contact Info) Description 05/18/2025 1:00 PM EST - 05/18/2025 2:[address] [facility] Main OR [address] [place] [address] Bhaskar Matos MD [address] [place] [id number] INCISION DRAINAGE RIGHT HIP WITH POSSIBLE CLOSURE Surgery Details Date/Time Status Location OR Service Patient Class Case Class Case Type Trauma Case? 05/18/2025 1:00 PM Posted [facility] OR OR Orthopedics Inpatient Panel 1 Procedure LRB Anes Op Region Wound Class Comments INCISION DRAINAGE RIGHT HIP WITH POSSIBLE CLOSURE Right Leg Lower Class III/ Contamin ated Surgeon Surgeon Role Service Panel Bhaskar Matos MD Primary Orthopedics 1 Case Notes Repeat I+D of right hip wound on 05/18, please have wound vac supplies available documented in this encounter Social History Tobacco [...] care for your loved ones. For example, children counselor or elderly care for an older adult? [...] Sign Reading Time Taken Comments Blood Pressure 139/87 05/18/2025 2:30 PM EST Pulse 77 05/18/2025 2:30 PM EST Temperature 36.1 C (97 F) 05/18/2025 2:10 PM EST Respiratory Rate 23 05/18/2025 2:30 PM EST Oxygen Saturation 98% 05/18/2025 2:30 PM EST Inhaled Oxygen Concentration - - Weight 47.6 kg (105 lb) 05/04/2025 5:29 PM EST Height 165.1 cm (5' 5 ) 05/01/2025 2:38 PM EST Body Mass Index 17.47 05/01/2025 2:38 PM EST documented in this encounter Functional Status * Calculated C-SSRS Risk Score (Lifetime/Recent) Answer Date of Assessment Author No Risk Indicated 05/01/2025 2:38 PM EST Lyndsay Figueroa RN * [place] Suicide Severity Rating Scale (Screener/Recent Self-Report) Question Answer Date of Assessment Author 1. Wish to be (Past 1 Month) No 025 2:38 PM Lyndsay Moran, FELIPE 2. Non-Specific Active Suici victoria Thoughts (Past [...] Surgery 05/19/2025 10:51 AM EST * Herlinda Villagran PT - 05/19/2025 10:[address] [facility] Physical Therapy Treatment PT Discharge Recommendations: retirement facility placement Staff Recommendations for safe patient [...] is a 84 y.o. female admitted to [facility] on 05/01/2025 with: Problem List[1] Modified Sanjana [...] 2-5 days per week PT Discharge Recommendations retirement facility placement Equipment Recommended Walker - rolling PT - Evaluation Status Complete PT - OK to Discharge (pt awaitng another procedure on 05/22/25) Procedure/Treatment: Procedures Procedures: Therapeutic Activity Gait Training Gait Training Time Entry: 24 Gait Training Activity 1: pt in bed at outset, moved supine-sitting unassisted, and sit to stand atrwalker [facility], vcs for hand placement; She ambulated [...] 1 time per day PT Discharge Recommendations: retirement facility placement Equipment Recommended: Walker - rolling [...] Outcomes Date/Time User Outcome 05/15/25 1728 Herlinda Villagran PT Progressing Goal: Patient will be able to safely negotiate 5 stairs with 1 rail, min assist Dates: Start: 05/06/25 Expected End: 05/13/25 Outcomes Date/Time User Outcome 05/15/25 1728 Herlinda Villagran PT Not Progressing Encounter Problems [...] CMS/HCC V28) Glaucoma 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 female : 1940 MR#: [id number] SUBJECTIVE Subjective Patient seen and examined bedside [...] of right femur, initial encounter (CMS/HCC V24, CMS/[facility] V28) Hematoma of left thigh [...] Alignment of the major fracture fragmentsis anatomic. [id number] -------- FINAL REPORT -------- Dictated By: Carmen Prado Dictated Date: 05/13/2025 16:08 ET Assigned Physician: Carmen Prado Reviewed and Electronically Signed By: Carmen Prado Signed Date: 05/13/2025 16:13 ET Workstation ID: [id number] Transcribed By: Self Edit Transcribed Date: 05/13/2025 [...] Signed Date: 05/13/2025 13:19 ET Workstation ID: [id number] Transcribed By: Self Edit Transcribed Date: 05/13/2025 [...] noted. The dose-area product for this procedure cot3715.5 mGy*cm2. PQRI CPT II G9500 -------- FINAL REPORT -------- Dictated By: Casimiro Ryan Dictated Date: 05/06/2025 07:45 ET Assigned Physician: Casimiro Ryan Reviewed and Electronically Signed By: Casimiro Ryan Signed Date: 05/06/2025 07:48 ET Workstation ID: [id number] Transcribed By: Self Edit Transcribed Date: 05/06/2025 [...] Signed Date: 05/02/2025 10:26 ET Workstation ID: [id number] Transcribed By: Self Edit Transcribed Date: 05/02/2025 [...] Signed Date: 05/01/2025 16:39 ET Workstation ID: [id number] Transcribed By: Self Edit Transcribed Date: 05/01/2025 [...] Signed Date: 05/01/2025 16:38 ET Workstation ID: [id number] Transcribed By: Self Edit Transcribed Date: 05/01/2025 16:37 ET XR Femur 2+ Views Right Result Date: 04/23/2025 Narrative: This order has been auto-finalized and does not contain a result. Assessment/Plan: Isabella Díaz is a 84 y.o. female who has a past medical history of Atrial fibrillation ([facility], CMS/[facility] V28) (01/17/2021), CHF (congestive heart [...] BMP and fax to my office at [phone], then on 06/27 please start the pt [...] ID following Plan: [facility] * Herlinda Villagran, PT - 05/18/2025 12:51 PM EST Physical Therapy Therapy session was attempted for Isabella Díaz by Herlinda Villagran PT on 05/18/2025. The patient was unable to be seen for the following reason(s): Out of room at a medical procedure Plan for return visit: As soon as possible * Ruttrinity You RD - 05/18/2025 11:17 AM EST [...] Ordered 05/18/25 0838 Adult NPO diet Location: [facility]; Diet: NPO- Except for Medications Diet effective now Question Answer Comment Location [facility] Diet NPO- Except for Medications 05/18/25 0837 05/07/25 1035 Dietary nutrition supplements Two times daily (BID); [facility]; Standard Oral Supplement Continuous Comments: Chocolate, breakfast and dinner Question Answer Comment Frequency Two times daily (BID) Location [facility] Supplements Standard Oral Supplement 05/07/25 1035 [...] over time, not intentional, but gradual. Appetite INTERACTIVE MEDIA PROJECT MANAGER: Good Intake INTERACTIVE MEDIA PROJECT MANAGER: Stable Vitamins/Minerals/Herbs: Pt reports she takes a [...] Past Medical History: Diagnosis Date Atrial fibrillation ([facility] V24, [facility] V28) 01/17/2021 DX:Atrial fibrillation ([facility]) CHF (congestive heart failure) ([facility] V24, [facility] V28) 01/17/2021 DX:CHF (congestive heart failure) ([facility]) Clostridium difficile diarrhea 03/26/2024 DX:Clostridium difficile diarrhea Depression 01/17/2021 DX:Depression Hypertension NSTEMI (non-ST elevated myocardial infarction) ([facility] V24, [facility] V28) 01/17/2021 DX:NSTEMI (non-ST elevated myocardial infarction) ([facility]); COMMENT: 12/2020 Dr Eller, holter monitor and cardiac cath as outpt. NSTEMI (non-ST elevated myocardial infarction) ([facility] V24, [facility] V28) 01/17/202112/2020 Dr Eller, holter monitor and cardiac cath as outpt. Pubic ramus fracture ([facility] V24, [facility] V28) 11/30/2021 DX:Pubic ramus fracture ([facility]) Takotsubo cardiomyopathy 01/17/2021 DX:Takotsubo cardiomyopathy [...] from the original note were not included. YODER PROGRESS NOTE Date: 05/17/2025 Author: Kobi Franklin MD Patient ID: Isabella Díaz is a 84 y.o. female : 1940 MR#: [id number] SUBJECTIVE Subjective Patient seen and examined bedside [...] distal end of right femur, initial encounter ([facility] V24, [facility] V28) Hematoma of left thigh [...] AM EST Plan is to return to [facility]: OR 05/18, wound vac, clinical improvement, ID [...] a 84 y.o. female : 1940 MR#: [id number] SUBJECTIVE Subjective Patient seen and examined bedside [...] Results from last 7 days Lab Units 05/16/2563005/15/25 0551 05/14/25 0707 05/13/25 0601 05/12/25 0545 [...] Results from last 7 days Lab Units 05/16/2563005/15/25 0505/14/25 0707 05/13/25 0601 SODIUM mmol/L 143 143 [...] Results from last 7 days Lab Units 05/16/2531 05/15/25 0551 05/14/25 0707 05/13/25 0601 05/12/25 [...] distal end of right femur, initial encounter ([facility] V24, [facility] V28) Hematoma of left thigh [...] change today, VSS, resting comfortably. * Herlinda Villagran, PT - 05/15/2025 4:[address] [facility] Physical Therapy Treatment PT Discharge Recommendations: retirement facility placement Staff Recommendations for safe patient [...] is a 84 y.o. female admitted to [facility] on 05/01/2025 with: Problem List[1] Modified [place] Scale: 4=Moderately severe disability. Unable to attend [...] 2-5 days per week PT Discharge Recommendations retirement facility placement Equipment Recommended Walker - rolling [...] 1 time per day PT Discharge Recommendations: retirement facility placement Equipment Recommended: Walker - rolling [...] Patient Active Problem List Diagnosis Atrial fibrillation ([facility] V24, [facility] V28) CHF (congestive heart failure) ([facility] V24, CMS/[facility] V28) Collagenous colitis Depression HTN (hypertension) Mitral valve regurgitation Takotsubo cardiomyopathy C. 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 S/P right hip fracture Closed displaced subtrochanteric fracture of right femur (CMS/HCC V24, CMS/HCC V28) Bleeding from right hip wound Atrial fibrillation with rapid ventricular response (CMS/HCC V24, CMS/[facility] V28) Moderate malnutrition ([facility] V24) Periprosthetic fracture around prosthetic joint, initial encounter Other closed fracture of distal end of right femur, initial encounter ([facility] V24, [facility] V28) Sharron-prosthetic fracture of femur [...] a 84 y.o. female : 1940 MR#: [id number] SUBJECTIVE Subjective Seen and examined. Some pain [...] distal end of right femur, initial encounter ([facility] V24, [facility] V28) Hematoma of left thigh [...] additional I&D, Ortho following Plan: return to [facility] Thuy * Herlinda Villagran PT - 05/15/2025 10:20 AM EST Physical Therapy Therapy session was attempted for Isabella Llamas [place] by Herlinda Villagran PT on 05/15/2025. The [...] Spear OT - 05/14/2025 5:[address] [facility] Occupational Therapy Treatment Note DATE: April TIME [...] Patient engaged in LB dressing task for [facility] pants. Patient is now requiring supervision [...] a 84 y.o. female : 1940 MR#: [id number] 05/01/2025 SUBJECTIVE Patient seen and examined today. [...] from last 7 days Lab Units 05/14/25 0705/13/25 0605/12/25 0545 05/10/25 0601 SODIUM mmol/L 139 143 142 140 POTASSIUM mmol/L 4.2 4.6 4.5 4.4 CHLORIDE mmol/L 100 102 103 104 CO2 mmol/L 31 32 33* 34* ANION GAP 8 9 6 2* BUN mg/dL 27* 24 27* CREATININE mg/dL 0.71 0.74 0.62 0.68 CALCIUM mg/dL 8.3* 8.4* 8.8 8.6 Results from last 7 days Lab Units 05/14/25 0705/13/25 0605/12/25 0545 05/10/25 0605/09/25 0756 POCT GLUCOSE mg/dL -- -- -- [...] of the major fracture fragments is anatomic. [facility] ([id number]) -------- FINAL REPORT -------- Dictated By: Cramen Prado Dictated Date: 05/13/2025 16:08 ET Assigned Physician: Carmen Prado Reviewed and Electronically Signed By: Carmen Prado Signed Date: 05/13/2025 16:13 ET Workstation ID: [id number] Transcribed By: Self Edit Transcribed Date: 05/13/2025 [...] Signed Date: 05/13/2025 13:19 ET Workstation ID: [id number] Transcribed By: Self Edit Transcribed Date: 05/13/2025 [...] Gold, PT - 05/14/2025 11:[address] [facility] Physical Therapy Treatment PT Discharge Recommendations: retirement facility placement Staff Recommendations for safe patient [...] is a 84 y.o. female admitted to [facility] on 05/01/2025 with: Problem List[1] Fall prevention [...] of the eccentric contraction, heel slides to [id number] with S . She was instructed to complete quad sets throughout the day while in bed. PT Assessment PT Assessment Results Decreased strength;Decreased endurance Prognosis Good Medical Staff Made Aware Yes Plan Treatment/Interventions Functional transfer training;LE strengthening/ROM;Endurance training;Bed mobility;Gait training PT Plan Skilled PT PT Frequency 2-5 days per week PT Discharge Recommendations retirement facility placement PT - Evaluation Status Complete [...] 1 time per day PT Discharge Recommendations: retirement facility placement Equipment Recommended: Walker - rolling [...] Patient Active Problem List Diagnosis Atrial fibrillation ([facility] V24, [facility] V28) CHF (congestive heart failure) ([facility] V24, [facility] V28) Collagenous colitis Depression HTN (hypertension) Mitral valve regurgitation Takotsubo cardiomyopathy C. 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 S/P right hip fracture Closed displaced subtrochanteric fracture of right femur ([facility]/HCC V24, CMS/HCC V28) Bleeding from right hip wound Atrial fibrillation with rapid ventricular response (CMS/HCC V24, CMS/HCC V28) Moderate malnutrition (CMS/HCC V24) Periprosthetic fracture around prosthetic joint, initial encounter Other closed fracture of distal end of right femur, initial encounter ([facility]/HCC V24, CMS/HCC V28) Sharron-prosthetic fracture of femur [...] this week, IV antibiotics Plan: return to [facility] * Amanda Woods MD - 05/13/2025 1:25 PM EST Images from the original note were not included. IMAN PROGRESS NOTE Date: 05/13/2025 Author: Amanda Woods MD Patient ID: Isabella Díaz is a 84 y.o. female : 1940 MR#: [id number] 05/01/2025 SUBJECTIVE Patient seen and examined today. [...] Signed Date: 05/13/2025 13:19 ET Workstation ID: [id number] Transcribed By: Self Edit Transcribed Date: 05/13/2025 [...] in place. Maintain pt safety. * Charley Collazouma - 05/12/2025 1:48 PM EST SPIRITUAL CARE Date/Time:05/12/25 at 1:48 PM EST Type of Visit: Initial Visit and Hot Strip Finisher Rounding Reason for Visit: Spiritual/Emotional Support and Spiritual Assessment Time Spent: 10 Minutes Location: [address] [place] [address] Sacramental Encounters: Spiritual Distress Assessment: Spiritual Distress [...] better. Voiced being supported by family. Karen latter-day is L[employer] Day, prayed for good health. Thankful for the [...] usually? Transcendence Do you have a particular latter-day, karen, or spirituality? Is your latter-day/spirituality/karen challenged by what is happening to you [...] from the original note were not included. YODER PROGRESS NOTE Date: 05/12/2025 Author: Amanda Woods MD Patient ID: Isabella Díaz is a 84 y.o. female : 1940 MR#: [id number] 05/01/2025 SUBJECTIVE Patient seen and examined today. [...] 7 days Lab Units 05/12/25 0545 05/10/25 0605/08/25 0705/07/25 0634 SODIUM mmol/L 142 140 140 139 POTASSIUM mmol/L 4.5 4.4 4.3 3.7 CHLORIDE mmol/L 103 104 105 104 CO2 mmol/L 33* 34* 30 30 ANION GAP 6 2* 5 5 BUN mg/dL 24 27* 26* 22 CREATININE mg/dL 0.62 0.68 0.56 0.71 CALCIUM mg/dL 8.8 8.6 8.1* 8.4* Results from last 7 days Lab Units 05/12/25 0545 05/10/25 0605/09/25 0756 05/08/2570005/07/25 0634 POCT GLUCOSE mg/dL -- -- 88 [...] Signed Date: 05/06/2025 07:48 ET Workstation ID: [id number] Transcribed By: Self Edit Transcribed Date: 05/06/2025 [...] Dr. Mojica. Kamilla Swan PA-C * Saritha Calixto, RD - 05/12/2025 10:37 AM EST 05/12/2025 [...] onward) Start Ordered 05/07/25 1036 Adult diet [facility]; General, Cardiac; Regular; Sodium 2 gm Restriction (Order Panel) Diet effective now Question Answer Comment Location [facility] Diet Type (req) General Diet Type (req) Cardiac General Diet Regular Diet Type (cardiac) Sodium 2 gm Restriction 05/07/25 1035 05/07/25 1035 Dietary nutrition supplements Two times daily (BID); [facility]; Standard Oral Supplement Continuous Comments: Chocolate, breakfast and dinner Question Answer Comment Frequency Two times daily (BID) Location [facility] Supplements Standard Oral Supplement 05/07/25 1035 [...] over time, not intentional, but gradual. Appetite INTERACTIVE MEDIA PROJECT MANAGER: Good Intake INTERACTIVE MEDIA PROJECT MANAGER: Stable Vitamins/Minerals/Herbs: Pt reports she takes a [...] Past Medical History: Diagnosis Date Atrial fibrillation ([facility] V24, [facility] V28) 01/17/2021 DX:Atrial fibrillation ([facility]) CHF (congestive heart failure) ([facility] V24, [facility] V28) 01/17/2021 DX:CHF (congestive heart failure) ([facility]) Clostridium difficile diarrhea 03/26/2024 DX:Clostridium difficile diarrhea Depression 01/17/2021 DX:Depression Hypertension NSTEMI (non-ST elevated myocardial infarction) ([facility] V24, [facility] V28) 01/17/2021 DX:NSTEMI (non-ST elevated myocardial infarction) ([facility]); COMMENT: 12/2020 Dr Eller, holter monitor and cardiac cath as outpt. NSTEMI (non-ST elevated myocardial infarction) ([facility] V24, [facility] V28) 01/17/202112/2020 Dr Eller, holter monitor and cardiac cath as outpt. Pubic ramus fracture ([facility] V24, [facility] V28) 11/30/2021 DX:Pubic ramus fracture ([facility]) Takotsubo cardiomyopathy 01/17/2021 DX:Takotsubo cardiomyopathy [...] Villagran, PT - 05/12/2025 8:[address] [facility] Physical Therapy Treatment PT Discharge Recommendations: retirement facility placement Staff Recommendations for safe patient [...] is a 84 y.o. female admitted to [facility] on 05/01/2025 with: Problem List[1] Modified [place] Scale: 3=Moderate disability. Requires some help, but [...] supine-sitting unassisted, and sit to stand at [facility], s for hand placement; She ambulated to bathroom (10 ft) , wbat on r with brace on , sba, and performed toilet transfer with min assist to [facility] with control and lift off Gait Training Activity 2 She ambulated out of room and into hallway, s for more symmetrical step length, upright trunk, [...] supine-sitting unassisted, and sit to stand [facility] for hand placement; She [...] 1 time per day PT Discharge Recommendations: retirement facility placement Equipment Recommended: Walker - rolling [...] Patient Active Problem List Diagnosis Atrial fibrillation ([facility] V24, CMS/[facility] V28) CHF (congestive heart failure) (CMS/HCC V24, CMS/HCC V28) Collagenous colitis Depression HTN (hypertension) Mitral valve regurgitation Takotsubo cardiomyopathy C. 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 S/P right hip fracture Closed displaced subtrochanteric fracture of right femur (CMS/HCC V24, CMS/HCC V28) Bleeding from right hip wound Atrial fibrillation with rapid ventricular response (CMS/HCC V24, CMS/[facility] V28) Moderate malnutrition ([facility] V24) Periprosthetic fracture around prosthetic joint, initial encounter Other closed fracture of distal end of right femur, initial encounter ([facility] V24, CMS/[facility] V28) Sharron-prosthetic fracture of femur [...] drainage from post-op site Plan return to [facility] hold * Amanda Woods MD - 05/11/2025 12:35 PM EST Images from the original note were not included. IMAN PROGRESS NOTE Date: 05/11/2025 Author: Amanda Woods MD Patient ID: Isabella Díaz is a 84 y.o. female : 1940 MR#: [id number] 05/01/2025 SUBJECTIVE Patient seen and examined today. [...] Signed Date: 05/06/2025 07:48 ET Workstation ID: [id number] Transcribed By: Self Edit Transcribed Date: 05/06/2025 [...] Gold, PT - 05/11/2025 11:[address] [facility] Physical Therapy Treatment PT Discharge Recommendations: retirement facility placement Staff Recommendations for safe patient [...] is a 84 y.o. female admitted to [facility] on 05/01/2025 with: Problem List[1] Fall prevention [...] 2-5 days per week PT Discharge Recommendations retirement facility placement PT - Evaluation Status Complete [...] 1 time per day PT Discharge Recommendations: retirement facility placement Equipment Recommended: Walker - rolling [...] good understanding Mobility Training, taught by Carolina Gold, PT at 05/11/2025 4:50 PM. Learner: Patient Readiness: Eager Method: Explanation, Demonstration Response: Verbalizes Understanding, Demonstrated Understanding Comment: Pt educated on seated and supine exercises and demonstrates a good understanding Education Comments No comments found. Carolina Gold, PT [1] Patient Active Problem List Diagnosis Atrial fibrillation ([facility] V24, [facility] V28) CHF (congestive heart failure) ([facility] V24, [facility] V28) Collagenous colitis Depression HTN (hypertension) Mitral valve regurgitation Takotsubo cardiomyopathy C. 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 S/P right hip fracture Closed displaced subtrochanteric fracture of right femur ([facility] V24, [facility] V28) Bleeding from right hip wound Atrial fibrillation with rapid ventricular response ([facility] V24, [facility] V28) Moderate malnutrition ([facility] V24) Periprosthetic fracture around prosthetic joint, initial encounter Other closed fracture of distal end of right femur, initial encounter ([facility] V24, [facility] V28) Sharron-prosthetic fracture of femur at tip of prosthesis * Anne Spear OT - 05/11/2025 9:[address] [facility] Occupational Therapy Treatment Note DATE: Sunday May 11, 2025 TIME IN: 899 TIME OUT: 929 Pt: Isabella Díaz [id number] [...] No OT Time Calculation OT Start Time 09 OT Stop Time 0930 OT Time Calculation [...] Bermudez, PT - 05/10/2025 3:[address] [facility] Physical Therapy Treatment PT Discharge Recommendations: retirement facility placement Staff Recommendations for safe patient [...] (Comment) (hinged knee brace) Prosthesis/Orthosis Used: KAFO, History of Present Illness: Patient is a 84 y.o. female admitted to [facility] on 05/01/2025 with: Problem List[1] Fall prevention [...] 1 time per day PT Discharge Recommendations retirement facility placement Procedure/Treatment: Procedures Procedures: Gait Training, [...] 1 time per day PT Discharge Recommendations: retirement facility placement Equipment Recommended: Walker - rolling [...] User Outcome 05/08/25 1319 Herlinda Villagran, PT Progressing Goal: Patient will [...] Patient Active Problem List Diagnosis Atrial fibrillation ([facility] V24, [facility] V28) CHF (congestive heart failure) ([facility] V24, [facility] V28) Collagenous colitis Depression HTN (hypertension) Mitral valve regurgitation Takotsubo cardiomyopathy C. 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 female : 1940 MR#: [id number] SUBJECTIVE CC: Follow-up right femoral fracture Hip [...] by them. In the hospital to use [id number] mg daily for DVT prophylaxis and on [...] a 84 y.o. female : 1940 MR#: [id number] SUBJECTIVE CC: Follow-up right femoral fracture Pain [...] monitor H&H and drainage Plan return to [facility] hold * Mecca Barrios MD - 05/08/2025 12:54 PM EST Images from the original note were not included. IMAN PROGRESS NOTE Date: 05/08/2025 Author: Mecca Barrios MD Patient ID: Isabella Díaz is a 84 y.o. female : 1940 MR#: [id number] SUBJECTIVE CC: Follow-up right femoral fracture Up [...] to rehab once okay from ortho standpoint. BURAK Raza - 05/08/2025 12:21 PM EST Orthopedic Trauma [...] Villagran, PT - 05/08/2025 10:[address] [facility] Physical Therapy Treatment PT Discharge Recommendations: retirement facility placement Staff Recommendations for safe patient [...] is a 84 y.o. female admitted to [facility] on 05/01/2025 with: Problem List[1] Modified [place] Scale: 4=Moderately severe disability. Unable to attend [...] brace, abd pillow in bed) Prosthesis/Orthosis Used [facility] Pain Assessment Pain Assessment 0-10 Pain Score [...] 5 days per week PT Discharge Recommendations retirement facility placement Equipment Recommended Walker - rolling [...] 1 time per day PT Discharge Recommendations: retirement facility placement Equipment Recommended: Walker - rolling PT - Evaluation Status: Complete Physical Therapy Goals/Education Encounter Problems Encounter Problems (Active) Template: Physical Therapy Problem: PT Short Term Goals Dates: Start: 05/06/25 Goal: Patient will ambulate with rwalker, hingeknee brace, wbat, stand by assist (Resolved) Dates: Start: 05/06/25 Expected End: 05/12/25 Resolved: 05/07/25 Outcomes Date/Time User Outcome 05/07/25 Jose Alberto Bermduez PT Completed Goal: Patient will ambulate with [...] V24, CMS/HCC V28) CHF (congestive heart failure) ([facility] V24, [facility] V28) Collagenous colitis Depression HTN (hypertension) Mitral valve regurgitation Takotsubo cardiomyopathy C. 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 S/P right hip fracture Closed displaced subtrochanteric fracture of right femur ([facility] V24, [facility] V28) Bleeding from right hip wound Atrial fibrillation with rapid ventricular response ([facility] V24, [facility] V28) Moderate malnutrition ([facility] V24) Periprosthetic fracture around prosthetic joint, initial encounter Other closed fracture of distal end of right femur, initial encounter ([facility] V24, [facility] V28) Sharron-prosthetic fracture of femur at tip of prosthesis * Anne Spear OT - 05/07/2025 5:29 PM EST Therapy session was attempted for Isabella Díaz by Anne Spear OT on 05/07/2025. The patient was unable to be seen for the following reason(s): Other: pt getting blood at time of OT visit Plan for return visit: Tomorrow * Kamilla Bermudez, PT - 05/07/2025 4:[address] [facility] Physical Therapy Treatment PT Discharge Recommendations: retirement facility placement Staff Recommendations for safe patient [...] is a 84 y.o. female admitted to 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 female : 1940 MR#: [id number] SUBJECTIVE CC: Follow-up right femoral fracture Remains [...] once okay from ortho standpoint. * Swati Rader, RD - 05/07/2025 10:28 AM EST 05/07/2025 [...] onward) Start Ordered 05/05/25 1344 Adult diet [facility]; General, Cardiac; Regular; Cardiac (Order Panel) Diet effective now Question Answer Comment Location [facility] Diet Type (req) General Diet Type (req) Cardiac General Diet Regular Diet Type (cardiac) Cardiac 05/05/25 1347 05/04/25 1028 Dietary nutrition supplements Lunch; [facility]; Standard Oral Supplement Continuous Comments: chocolate Question Answer Comment Frequency Lunch Location [facility] Supplements Standard Oral Supplement 05/04/25 1027 [...] meals has been good since last visit- [id number]% of trays. States she has not been [...] Past Medical History: Diagnosis Date Atrial fibrillation ([facility] V24, [facility] V28) 01/17/2021 DX:Atrial fibrillation ([facility]) CHF (congestive heart failure) ([facility] V24, [facility] V28) 01/17/2021 DX:CHF (congestive heart failure) ([facility]) Clostridium difficile diarrhea 03/26/2024 DX:Clostridium difficile diarrhea Depression 01/17/2021 DX:Depression Hypertension NSTEMI (non-ST elevated myocardial infarction) ([facility] V24, [facility] V28) 01/17/2021 DX:NSTEMI (non-ST elevated myocardial infarction) ([facility]); COMMENT: 12/2020 Dr Eller, holter monitor and cardiac cath as outpt. NSTEMI (non-ST elevated myocardial infarction) ([facility] V24, [facility] V28) 01/17/202112/2020 Dr Eller, holter monitor and cardiac cath as outpt. Pubic ramus fracture ([facility] V24, [facility] V28) 11/30/2021 DX:Pubic ramus fracture ([facility]) Takotsubo cardiomyopathy 01/17/2021 DX:Takotsubo cardiomyopathy [...] sodium chloride, sodium chloride, sodium chloride * BUARK Urbina - 05/07/2025 7:55 AM EST Orthopedic [...] Author: Mecca Barrios MD Patient ID: Isabella Díza is a 84 y.o. female : 1940 MR#: [id number] SUBJECTIVE CC: Follow-up right femoral fracture Soft [...] started on Lovenox. 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 Occupational Therapy Evaluation DATE: Tuesday May 06, 2025 TIME IN: 1245 TIME OUT: 1315 Pt: Isabella Díaz ROOM: [address] [place] [address] Discharge Recommendation: Inpatient Rehab Equipment Recommendation: walker Staff recommendations for safe patient handling: Mod assist Modified [place] Scale Score: 0=No symptoms Assessment: Patient is [...] is a 84 y.o. female admitted to [facility] on 05/01/2025. Occupational Therapy evaluation and treatment ordered to assess ADL independence, safety, and functional mobility for discharge planning. Problem List[1] Medical History[2] Surgical History[3] Subjective Pt states that she is going to purchase a flexible sock aid. Patient agreeable to engage in OT evaluation and treatment. Objective Patient was identified by name and x2. Hearing: Intact Speech: Intact Vision: Vision: Not tested Services Mgr Services Is an cutter finisher used? : No - 05/06/25 1245 OT [...] back Bathroom Accessibility Pt also has leg refrigeration engineering teacher, respiratory care assistant and sock aid Prior Function Level of [place] Independent with mobility and functional transfers Ambulation [...] Comment: Pt reviewed use of AE including respiratory care assistant and sock aid as well as long shoe horn and dressing stick. Emphasized avoiding excessive ROM ADL Training, taught by Anne Spear OT at 05/06/2025 2:41 PM. Learner: Patient Readiness: Eager Method: Explanation, Demonstration Response: Verbalizes Understanding, Needs Reinforcement Comment: Pt reviewed use of AE including respiratory care assistant and sock aid as well as long shoe horn and dressing stick. Emphasized avoiding excessive ROM Education Comments No comments found. Anne Spear OT [1] Patient Active Problem List Diagnosis Atrial fibrillation ([facility] V24, [facility] V28) CHF (congestive heart failure) ([facility] V24, [facility] V28) Collagenous colitis Depression HTN (hypertension) Mitral valve regurgitation Takotsubo cardiomyopathy C. 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 S/P right hip fracture Closed displaced subtrochanteric fracture of right femur ([facility] V24, [facility] V28) Bleeding from right hip wound Atrial fibrillation with rapid ventricular response ([facility] V24, [facility] V28) Moderate malnutrition ([facility] V24) Periprosthetic fracture around prosthetic joint, initial encounter Other closed fracture of distal end of right femur, initial encounter ([facility] V24, [facility] V28) Sharron-prosthetic fracture of femur at tip of prosthesis [2] Past Medical History: Diagnosis Date Atrial fibrillation ([facility] V24, [facility] V28) 01/17/2021 DX:Atrial fibrillation ([facility]) CHF (congestive heart failure) ([facility] V24, [facility] V28) 01/17/2021 DX:CHF (congestive heart failure) ([facility]) Clostridium difficile diarrhea 03/26/2024 DX:Clostridium difficile diarrhea Depression 01/17/2021 DX:Depression Hypertension NSTEMI (non-ST elevated myocardial infarction) ([facility] V24, [facility] V28) 01/17/2021 DX:NSTEMI (non-ST elevated myocardial infarction) ([facility]); COMMENT: 12/2020 Dr Eller, holter monitor and cardiac cath as outpt. NSTEMI (non-ST elevated myocardial infarction) ([facility] V24, [facility] V28) 01/17/202112/2020 Dr Eller, holter monitor and cardiac cath as outpt. Pubic ramus fracture ([facility] V24, [facility] V28) 11/30/2021 DX:Pubic ramus fracture ([facility]) Takotsubo cardiomyopathy 01/17/2021 DX:Takotsubo cardiomyopathy [...] Villagran, PT - 05/06/2025 8:[address] [facility] Physical Therapy Evaluation & Treatment PT Discharge [...] is a 84 y.o. female admitted to [facility] on 05/01/2025. Problem List[1] Medical History[2] Surgical History[3] Social History Home Living Environment: Home Living Type of Home: House Lives With: Alone Home Adaptive Equipment: Walker - rolling, Raised toilet seat, Shower chair, Leg refrigeration engineering teacher, Sock aid, Leveling Machine Operator (Rollator,recliner) Home Layout: One level, Laundry main level, Full bath main level, Able to live on main level with bedroom/bathroom Home Access: Stairs to enter with rails Entrance Stairs-Rails: Rail on the left going up Entrance Stairs-Number of Steps: 3 Bathroom Shower/Tub: Walk-in shower Bathroom Toilet: Standard Prior Function Level of [place]: Independent with mobility and functional transfers Ambulation Status: Household ambulator, Community ambulator Receives Help From: Family Indoor Mobility Assistance: Independent Stairs Assistance : Independent Prior Device Use: Walker Do you drive?: Yes Which is your dominant hand?: Right General Assessment Services Mgr Services Is an cutter finisher used? : No 05/06/25 0825 PT Last [...] Equipment Walker - rolling;Raised toilet seat;Shower chair;Leg refrigeration engineering teacher;Sock aid;Leveling Machine Operator (Rollator,recliner) Home Layout One level;Laundry main level;Full bath main level;Able to live on main level with bedroom/bathroom Home Access Stairs to enter with rails Entrance Stairs-Rails Rail on the left going up Entrance Stairs-Number of Steps 3 Bathroom Shower/Tub Walk-in shower Bathroom Toilet Standard Prior Function Level of [place] Independent with mobility and functional transfers Ambulation [...] Recommended Walker - rolling;Raised toilet seat;Shower chair;Sock aid;Leveling Machine Operator PT - Evaluation Status Complete PT Evaluation [...] is a 84 y.o. female admitted to [facility] on 05/01/2025 for Periprosthetic fracture around prosthetic joint, initial encounter [M97.9XXA] Other closed fracture of distal end of right femur, initial encounter ([facility] V24, [facility] V28) [S72.941A] . Pt presents with decreased ROM and [...] Patient Active Problem List Diagnosis Atrial fibrillation ([facility]/HCC V24, [facility]/HCC V28) CHF (congestive heart failure) ([facility]/HCC V24, CMS/HCC V28) Collagenous colitis Depression HTN (hypertension) Mitral valve regurgitation Takotsubo cardiomyopathy C. 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 S/P right hip fracture Closed displaced subtrochanteric fracture of right femur ([facility] V24, [facility] V28) Bleeding from right hip wound Atrial fibrillation with rapid ventricular response ([facility] V24, [facility] V28) Moderate malnutrition ([facility] V24) Periprosthetic fracture around prosthetic joint, initial encounter Other closed fracture of distal end of right femur, initial encounter ([facility] V24, [facility] V28) Sharron-prosthetic fracture of femur at tip of prosthesis [2] Past Medical History: Diagnosis Date Atrial fibrillation ([facility] V24, [facility] V28) 01/17/2021 DX:Atrial fibrillation ([facility]) CHF (congestive heart failure) ([facility] V24, [facility] V28) 01/17/2021 DX:CHF (congestive heart failure) ([facility]) Clostridium difficile diarrhea 03/26/2024 DX:Clostridium difficile diarrhea Depression 01/17/2021 DX:Depression Hypertension NSTEMI (non-ST elevated myocardial infarction) ([facility] V24, [facility] V28) 01/17/2021 DX:NSTEMI (non-ST elevated myocardial infarction) ([facility]); COMMENT: 12/2020 Dr Eller, holter monitor and cardiac cath as outpt. NSTEMI (non-ST elevated myocardial infarction) ([facility] V24, [facility] V28) 01/17/202112/2020 Dr Eller, holter monitor and cardiac cath as outpt. Pubic ramus fracture ([facility] V24, [facility] V28) 11/30/2021 DX:Pubic ramus fracture ([facility]) Takotsubo cardiomyopathy 01/17/2021 DX:Takotsubo cardiomyopathy [...] a 84 y.o. female : 1940 MR#: [id number] SUBJECTIVE CC: Follow-up right femoral fracture Seen [...] Barrios MD - 05/05/2025 3:57 PM EST [facility] Provider Response Note PATIENT: ISABELLA DÍAZ : 1940 ADMIT DATE: 05/02/2025 8:14 AM DISCH DATE: RESPONDING PROVIDER #: [id number] PROVIDER RESPONSE TEXT: The patient has severe, [...] as needed on follow up. ASPEN Criteria ([employer] [employer] Pa[employer]teral [employer]al [employer]), for [...] mass loss; moderate-severe fluid accumulation; measurably reduced audit mgr strength Moderate Malnutrition in Chronic Illness -Energy [...] mass loss; severe fluid accumulation; measurably reduced audit mgr strength [phone] The patient's clinical indicators include: Options provided: [...] from the original note were not included. IMNA PROGRESS NOTE Date: 05/04/2025 Author: Mecca Barrios MD Patient ID: Isabella Díaz is a 84 y.o. female : 1940 MR#: [id number] SUBJECTIVE CC: Follow-up right femoral fracture Patient [...] orthopedic surgical team CODE STATUS: Full code BURAK Ivy - 05/04/2025 2:44 PM EST Orthopedic trauma [...] Barrier- ORIF on 05/05 Plan return to [facility] hold ICC following. * Jose Elias [...] a 84 y.o. female : 1940 MR#: [id number] SUBJECTIVE Subjective chart and EMR reviewed events [...] CVS: S1 S2 ausculated abdomen, soft NT HUMAN RESOURCES BENEFITS ADMINISTRATOR: AO3, NFD, gait not tested Extremities: R [...] Signed Date: 05/02/2025 10:26 ET Workstation ID: [id number] Transcribed By: Self Edit Transcribed Date: 05/02/2025 [...] care proxy with phone number :James Sigala [phone] Discussed with: pt, nursing Kim, case Mx Total time spent 35 minutes doing reviewing the electronic medical record , interviewing patient, gathering information, performing physical exam, formulating plan, explaining management plan to patient, coordinating care with RN and case managmenet, documentation and placing orders. This dictation was performed using [employer] speech recognition software. If you have questions, please do not hesitate to reach me on [employer] system or call our hospital at [phone] * Brian Baeza MD - 05/03/2025 2:24 [...] proceed as described above. Elgin Baeza MD [facility] surgical colleagues Orthopaedic Trauma Service Please [...] RN - 05/02/2025 4:25 PM EST 05/02/25 9733 Initial Transition Plan Initial Transition Plan Group Home Facility Back up Transition Plan Back up Transition plan Group Home Facility Discharge Planning Living Arrangements Other (Comment) (from [facility]) Type of Residence shelter Care Facility Name From [facility] Assistive Devices Walker;Wheelchair Support Systems Children Medication Coverage Has Med Coverage Under Insurance Plan Yes Medication Affordability No concerns related to payment for meds Anticipated Discharge Needs Discipline following for SNF placement Upsetting Machine Operator Informed Choice Informed Choice Given? Yes Transportation Transportation at discharge Ambulance Met with patient at bedside verified demographics,Ins,PCP.Patient from [facility] was there for STR and was to DC home on 05/03.Patient requesting referral back to [facility] made in [facility].ICC to follow for dc planning needs * Kitty Castellanos MD - 05/02/2025 3:15 PM EST Images from the original note were not included. IMAN PROGRESS NOTE Date: 05/02/2025 Author: Kitty Castellanos MD Patient ID: Isabella Díaz is a 84 y.o. female : 1940 MR#: [id number] SUBJECTIVE Subjective Allergies Patient has no known [...] sodium chloride, 10 mL, PRN OBJECTIVE Vitals: 05/01/25181805/02/25 0406 05/02/253 05/02/25 1411 BP: 118/81 129/63 131/70 (!) 151/93 BP Location: Left arm Left arm Left arm Patient Position: Lying Lying Lying Pulse: 89 74 92 86 Resp: 18 17 16 Temp: 36.8 ??C (98.3 ??F) 36.5 ??C (97.7 ??F) 36.8 ??C (98.2 ??F) 36.9 ??C (98.4 ??F) TempSrc: Oral Oral Oral SpO2: 94% 95% 92% 97% Weight: Height: BP: 151/93 (05/02 1411) Heart Rate: 86 (05/02 1411) Heart Rate Source: Monitor (05/01 1819) Temp: 36.9 ??C (98.4 ??F) (05/02 1411) Temp Source: Oral (11/08 0753) SpO2: 97 % (05/02 1411) No intake/output data recorded. I/O this shift: In: - Out: 300 [Urine:300] Physical examination Body mass index is 17.14 kg/m??. General, appears stated age , comfortable , not in apparent pain or distress, underbuilt HEENT,ALEXIS neck, Supple chest, limited thoracic excursion, no added sounds, chest is clear CVS: S1 S2 ausculated abdomen, soft NT HUMAN RESOURCES BENEFITS ADMINISTRATOR: AO3, NFD, gait not tested Extremities: R [...] Signed Date: 05/02/2025 10:26 ET Workstation ID: [id number] Transcribed By: Self Edit Transcribed Date: 05/02/2025 [...] Health care proxy with phone number :Jovon [phone] Discussed with: pt, nursing, C3 Total time spent 35 minutes doing reviewing the electronic medical record , interviewing patient, gathering information, performing physical exam, formulating plan, explaining management plan to patient, coordinating care with RN and case managmenet, documentation and placing orders. This dictation was performed using [employer] speech recognition software. If you have questions, please do not hesitate to reach me on [employer] system or call our hospital at [phone] * Tiffany Mcmanus RN - 05/02/2025 2:23 [...] original note were not included. 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 Medication history has been obtained for Isabella [...] Thank you, Johana Goode Medication Historian W: [phone] * Aníbal Cortes RN - 05/01/2025 6:20 PM EST ED RN HANDOFF (All Aldana Below Must Be Completed) Reason/Diagnosis for Admission: Type of Admission: [x] Medsurg, [] Telemetry Already in a Hospital Bed: [] Yes / [x] No Room Considerations/Precautions (ex: fever, diarrhea, or any infectious concerns): [] Yes / [x] No Cage Shift Manager: [] Yes / [x] No If YES, Cardiac Rhythm: [] NSR, [] SB, [] ST, [] A-FIB, [] A-Flutter, [] Pacemaker, [] 1st Degree HB, [] 2nd Degree HB, [] 3rd Degree HB Reason for Cage Shift Manager: VS: Visit Vitals BP 118/81 (BP Location: [...] Submitted by and Phone Extension: Aníbal Du [phone] * Lyndsay Figueroa RN - 05/01/2025 5:27 PM EST Pt incontinent of urine. Pt assisted with linen change and sharron care. New brief applied, skin on pt's bottom intact. Pt tolerated well.Call cabrera within reach, pt verbalized understanding of call belluse. * Lyndsay Figueroa RN - 05/01/2025 2:33 PM EST Pt arrives by EMS from [facility]. Pt was doing PT, while coming down [...] route by EMS. History provided by: Patient Pepin Coma Scale Score: 15 Patient History Medical [...] distal end of right femur, initial encounter ([facility] V24, [facility] V28) Medical Decision Making This [...] distal end of right femur, initial encounter ([facility] V24, [facility] V28): complicated acute illness or injury Procedures Nik Vogt MD 05/01/25 1539 [1] Past Medical History: Diagnosis Date Atrial fibrillation ([facility] V24, [facility] V28) 01/17/2021 DX:Atrial fibrillation (HCC) CHF (congestive heart failure) ([facility] V24, [facility] V28) 01/17/2021 DX:CHF (congestive heart failure) ([facility]) Clostridium difficile diarrhea 03/26/2024 DX:Clostridium difficile diarrhea Depression 01/17/2021 DX:Depression Hypertension NSTEMI (non-ST elevated myocardial infarction) ([facility] V24, [facility] V28) 01/17/2021 DX:NSTEMI (non-ST elevated myocardial infarction) ([facility]); COMMENT: 12/2020 Dr Eller, holter monitor and cardiac cath as outpt. NSTEMI (non-ST elevated myocardial infarction) ([facility] V24, [facility] V28) 01/17/202112/2020 Dr Eller, holter monitor and cardiac cath as outpt. Pubic ramus fracture ([facility] V24, [facility] V28) 11/30/2021 DX:Pubic ramus fracture ([facility]) Takotsubo cardiomyopathy 01/17/2021 DX:Takotsubo cardiomyopathy [...] from the original note were not included. YODER HISTORY AND PHYSICAL Please contact author [BURAK Cardenas] via [employer]. Patient: Isabella Díaz Admission Date/Time: 05/01/2025 2:31 PM : 1940 [84 y.o.] Patient's PCP: Lilliam Levy MD Attending Provider: Nik Vogt MD;Miguelangel Gillis CHIEF COMPLAINT [place] a pop in her right leg HISTORY [...] will be transferred to the care of [facility] for further management of their periprosthetic [...] Signed Date: 05/01/2025 16:38 ET Workstation ID: [id number] Transcribed By: Self Edit Transcribed Date: 05/01/2025 16:37 ET XR Knee 1-2 Views Right Final Result FINDINGS/IMPRESSION: There is a angulated and mildly displaced distal femur fracture. Degenerative changes of the knee. -------- FINAL REPORT -------- Dictated By: Henry Forrester Dictated Date: 05/01/2025 16:39 ET Assigned Physician: Henry Forrester Reviewed and Electronically Signed By: Henry Forrester Signed Date: 05/01/2025 16:39 ET Workstation ID: [id number] Transcribed By: Self Edit Transcribed Date: 05/01/2025 [...] -Am labs Chronic anemia -appears around baseline - -continue to trend while inpatient Atrial fibrillation [...] onward) Start Ordered 05/01/25 1809 Adult diet [facility]; Cardiac; Cardiac Diet effective now Question Answer Comment Location [facility] Diet Type (req) Cardiac Diet Type (cardiac) Cardiac 05/01/25 181 [x] Lines, tubes, drains: IV access [x] Medication reconciliation Health Care proxy with Phone number Jovon Díaz her son, [1] Past Medical History: Diagnosis Date ??? Atrial fibrillation ([facility] V24, [facility] V28) 01/17/2021 DX:Atrial fibrillation ([facility]) ??? CHF (congestive heart failure) ([facility] V24, [facility] V28) 01/17/2021 DX:CHF (congestive heart failure) ([facility]) ??? Clostridium difficile diarrhea 03/26/2024 DX:Clostridium difficile diarrhea ??? Depression 01/17/2021 DX:Depression ??? Hypertension ??? NSTEMI (non-ST elevated myocardial infarction) ([facility] V24, CMS/HCC V28) 01/17/2021 DX:NSTEMI (non-ST elevated myocardial infarction) ([facility]); COMMENT: 12/2020 Dr Eller, holter monitor and cardiac cath as outpt. ??? NSTEMI (non-ST elevated myocardial infarction) ([facility]/HCC V24, [facility] V28) 01/17/202112/2020 Dr Eller, holter monitor and cardiac cath as outpt. ??? Pubic ramus fracture ([facility] V24, [facility] V28) 11/30/2021 DX:Pubic [...] Diff, etc., who has been admitted to [facility] at least couple of times since early [...] 3. Reapplication VAC dressing Surgeon: ELENITA Matos Mix House Operator BURAK Monteiro Anesthesia: YINA Anesthesiologist: Fermin DUBON [...] sponge application deep. Surgeon: Dr. Gris Mojica. Habilitation Worker: Adelina Taylor PA-C. The PA was essential [...] DISTAL (R) OPERATIVE NOTE Date: 05/05/2025 Location: [facility] OR Name: Isabella Díaz, : 1940, PREOP-DIAGNOSIS: Complex SHARRON implant fracture right distal femur POSTOP-DIAGNOSIS: Same PROCEDURE: Removal of previous deep hardware, ORIF right distal femur fracture with intramedullary and lateral locked plating SURGEON: Augusta Baeza MD CS As possible with this patient, I have [...] confirmed I have signed the consent sheet. HAND BOOTMAKER: Sindi Jennings PA-C My embalmer assistant was present for this case and [...] weeks X-rays on arrival Elgin Baeza MD [facility] Please contact [...] past medical history of Atrial fibrillation (CMS/HCCV24, CMS/[facility] V28) (01/17/2021), CHF (congestive heart failure) (CMS/HCC V24, CMS/HCC V28) (01/17/2021), Clostridium difficile diarrhea (03/26/2024), Depression (01/17/2021), Hypertension, NSTEMI (non-ST elevated myocardial infarction) ([facility] V24, [facility] V28) (01/17/2021), NSTEMI (non-ST elevatedmyocardial infarction) ([facility] V24, [facility] V28) (01/17/2021), Pubic ramus fracture ([facility] V24, [facility] V28) (11/30/2021), and Takotsubo cardiomyopathy [...] major fracture fragments is anatomic. Romeo SUMNER ([id number]) -------- FINAL REPORT -------- Dictated By: Carmen Prado Dictated Date: 05/13/2025 16:08 ET Assigned Physician: Carmen Prado Reviewed and Electronically Signed By: Carmen Praod Signed Date: 05/13/2025 16:13 ET Workstation ID: [id number] Transcribed By: Self Edit Transcribed Date: 05/13/2025 [...] Signed Date: 05/13/2025 13:19 ET Workstation ID: [id number] Transcribed By: Self Edit Transcribed Date: 05/13/2025 13:18 ET Assessment/Plan History Of Present Illness (includes Chief Complaint): Isabella Díaz is a 84 y.o. female who has a past medical history of Atrial fibrillation ([facility], [facility] V28) (01/17/2021), CHF (congestive heart failure) (CMS/HCC V24, CMS/HCC V28) (01/17/2021), Clostridium difficile diarrhea (03/26/2024), Depression (01/17/2021), Hypertension, NSTEMI (non-ST elevated myocardial infarction) (CMS/HCC V24, CMS/HCC V28) (01/17/2021), NSTEMI (non-ST elevatedmyocardial infarction) (CMS/HCC V24, CMS/HCC V28) (01/17/2021), Pubic ramus fracture ([facility] V24, [facility] V28) (11/30/2021), and Takotsubo cardiomyopathy [...] Past Medical History: Diagnosis Date Atrial fibrillation ([facility] V24, [facility] V28) 01/17/2021 DX:Atrial fibrillation (HCC) CHF (congestive heart failure) ([facility] V24, [facility] V28) 01/17/2021 DX:CHF (congestive heart failure) ([facility]) Clostridium difficile diarrhea 03/26/2024 DX:Clostridium difficile diarrhea Depression 01/17/2021 DX:Depression Hypertension NSTEMI (non-ST elevated myocardial infarction) ([facility] V24, [facility] V28) 01/17/2021 DX:NSTEMI (non-ST elevated myocardial infarction) ([facility]); COMMENT: 12/2020 Dr Eller, holter monitor and cardiac cath as outpt. NSTEMI (non-ST elevated myocardial infarction) ([facility] V24, [facility] V28) 01/17/202112/2020 Dr Eller, holter monitor and cardiac cath as outpt. Pubic ramus fracture ([facility] V24, [facility] V28) 11/30/2021 DX:Pubic ramus fracture (HCC) Takotsubo cardiomyopathy 01/17/2021 DX:Takotsubo cardiomyopathy [2] Past [...] drop, 1 drop, Both Eyes, BID, BURAK Davis1 drop at 11/21/25 0827 [START ON 05/16/2025] enoxaparin (LOVENOX) injection 40 [...] q AM, BURAK Davis, 20 mg at 05/15/25632 polyethylene glycol (MIRALAX) packet 17 g, 17 g, oral, Nightly, BURAK Davis, 17 g at 05/13/252051 Insert peripheral IV, , , Once AND Maintain IV access, , , Until discontinued AND Saline lock IV, , , Once AND sodium chloride 0.9 % flush 10 mL, 10 mL, intravenous, BID, 10 mL at 05/15/25826 AND sodium chloride 0.9 % flush 10 [...] Ordered 05/05/25 0001 Adult NPO diet Location: [facility]; Diet: NPO- Except for Medications Diet effective midnight Question Answer Comment Location [facility] Diet NPO- Except for Medications 05/04/25 0829 05/04/25 1028 Dietary nutrition supplements Lunch; [facility]; Standard Oral Supplement Continuous Comments: chocolate Question Answer Comment Frequency Lunch Location [facility] Supplements Standard Oral Supplement 05/04/25 1027 05/04/25 0830 Adult diet [facility]; General, Cardiac; Regular; Cardiac Diet effective now Question Answer Comment Location [facility] Diet Type (req) General Diet Type [...] over time, not intentional, but gradual. Appetite INTERACTIVE MEDIA PROJECT MANAGER: Good Intake INTERACTIVE MEDIA PROJECT MANAGER: Stable Vitamins/Minerals/Herbs: Pt reports she takes a [...] denies chewing/swallowing issues, last +BM 05/01 per [facility]. Pt reports ongoing gradual weight loss, states last recorded weight was 103, however [facility] weight history shows consistent weights of [...] of Patient Care: Discussed with RN via [facility] Secure Chat/Haiku. , Care plan discussed with patient/family., and Malnutrition OPA sent to provider via [facility] Monitoring/Evaluation: Fluid/Beverage Intake, Food Intake, Medical Food Supp/Oral Nutrition Supp, Weight, Renal/Electrolyte Profile, Gastrointestinal Profile, Diet Order Follow Up: Nutrition Priority Level: High RD remains available and will continue to follow. Signature: Rut You RD [1] Past Medical History: Diagnosis Date Atrial fibrillation ([facility] V24, [facility] V28) 01/17/2021 DX:Atrial fibrillation ([facility]) CHF (congestive heart failure) ([facility] V24, [facility] V28) 01/17/2021 DX:CHF (congestive heart failure) ([facility]) Clostridium difficile diarrhea 03/26/2024 DX:Clostridium difficile diarrhea Depression 01/17/2021 DX:Depression Hypertension NSTEMI (non-ST elevated myocardial infarction) ([facility] V24, CMS/[facility] V28) 01/17/2021 DX:NSTEMI (non-ST elevated myocardial infarction) ([facility]); COMMENT: 12/2020 Dr Eller, holter monitor and cardiac cath as outpt. NSTEMI (non-ST elevated myocardial infarction) (CMS/HCC V24, CMS/HCC V28) 01/17/202112/2020 Dr Eller, holter monitor and cardiac cath as outpt. Pubic ramus fracture (CMS/HCC V24, CMS/[facility] V28) 11/30/2021 DX:Pubic ramus fracture (HCC) Takotsubo cardiomyopathy 01/17/2021 DX:Takotsubo cardiomyopathy [2] Past [...] proceed as described above. Elgin Baeza MD [facility] surgical colleagues [facility] Please contact this office if there are questions. documented in this encounter Miscellaneous Notes * ED Bed Hold Note - Mercedes Harmon RN - 05/01/2025 2:31 PM EST Bed: Expected date: Expected time: Means of arrival: Comments: fall documented in this encounter Plan of Treatment Upcoming Encounters Date Type Department Care Team (Late st Contact Info) Description 05/22/2025 7:30 AM EST - 05/22/2025 9:[address] [facility] Main OR [address] [place] [phone] Gris Mojica MD [address] [place] [phone] DEBRIDEMENT WOUND RIGHT DISTAL FEMUR 05/27/2025 11:00 AM EST Office Visit General Surgery - [place] [address] [facility] [address] [place] [phone] Marcellus Powell DO [address] [place] [phone] 06/02/2025 3:15 PM EST Appointment Bone Density - [address] [phone] 06/11/2025 2:30 PM EST Office Visit Adult Medicine - [place] [address] [place] [phone] Lilliam Levy MD [address] [place] [address] 08/06/2025 10:50 AM EST Office Visit [facility] [address] [facility] [address] [place] [phone] Bhaskar Becker MD [address] [place] [address] [place] [phone] Scheduled Orders Name Type Priority Associated Diagnoses [...] Plan Autogenerated Problem No Honorio Jean-Baptiste PA Autoduane renteria Goal Care Plan Autogenerated Problem No Honorio Jean-Baptiste PA Autoduane renteria Goal Care Plan Autogenerated Problem No [...] THERAPY, ADULT Routine 05/15/2025 12:41 PM EST CBC WITH AUTO DIFFERENTIAL Routine 05/15/2025 5:51 [...] Signed Date: 05/19/2025 07:19 ET Workstation ID: [id number] Transcribed By: Self Edit Transcribed Date: 05/19/2025 [...] Signed Date: 05/19/2025 07:19 ET Workstation ID: [id number] Transcribed By: Self Edit Transcribed Date: 05/19/2025 07:14 ET us Honorio SUMNER IMG XR PROCEDURES Final Res ult * (ABNORMAL) Magnesium (05/18/2025 6:21 AM EST) Magnesium 1.8(L) 1.9 - 2.6 mg/dL 05/18/2025 8:01 AM EST [facility] Blood Venous blood specimen / Unknown Venipuncture / Unknown 05/18/2025 6:21 AM EST 05/18/2025 6:34 AM EST Kobi Franklin MD LAB BLOOD ORDERABLE S Final Result [facility] [address] [place] [address], * (ABNORMAL) Basic metabolic panel (05/18/2025 6:21 AM EST) Sodium 142 133 - 145 mmol/L 05/18/2025 8:03 AM [facility] Potassium 4.5 3.5 - 5.5 mmol/L 05/18/2025 8:03 AM [facility] Chloride 103 96 - 110 mmol/L 05/18/2025 8:03 AM [facility] CO2 33(H) 21 - 32 mmol/L 05/18/2025 8:03 AM [facility] Anion Gap 6 3 - 11 05/18/2025 8:03 AM [facility] Glucose 82 70 - 100 mg/dL 05/18/2025 8:03 AM [facility] BUN 34(H) 5 - 25 mg/dL 05/18/2025 8:03 AM [facility] Creatinine 0.78 0.50 - 1.10 mg/dL 05/18/2025 8:03 AM [facility] eGFR 76 >=60 mL/min/1. 73m2 05/18/2025 8:03 AM [facility] Comment:Calculation based on the Chronic Kidney Disease Epidemiology Collaboration (CKD-EPI) equation refit without adjustment for race. BUN/Creatinine Ratio 43.6 05/18/2025 8:03 AM [facility] Calcium 8.1(L) 8.5 - 10.5 mg/dL 05/18/2025 8:03 AM [facility] Blood Venous blood specimen / Unknown Venipuncture / Unknown 05/18/2025 6:21 AM EST 05/18/2025 6:34 AM EST Kobi Franklin MD LAB BLOOD ORDERABLE S Final Result [facility] [address] [place] [address], [place] [phone] * (ABNORMAL) Complete blood count (05/18/2025 6:21 AM EST) WBC 8.3 4.8 - 10.8 K/mcL LAB HEMETOLOGY METHOD 05/18/2025 6:56 AM [facility] RBC 3.20(L) 3.80 - 4.80 M/mcL LAB HEMETOLOGY METHOD 05/18/2025 6:56 AM [facility] Hemoglobin 9.3(L) 11.5 - 16.0 g/dL LAB HEMETOLOGY METHOD 05/18/2025 6:56 AM [facility] Hematocrit 30.0(L) 35.0 - 47.0 % LAB HEMETOLOGY METHOD 05/18/2025 6:56 AM [facility] MCV 94.6 79.0 - 98.0 FL LAB HEMETOLOGY METHOD 05/18/2025 6:56 AM [facility] MCH 29.3 27.0 - 32.0 pcg LAB HEMETOLOGY METHOD 05/18/2025 6:56 AM [facility] MCHC 31.0(L) 32.0 - 37.0 g/dL LAB HEMETOLOGY METHOD 05/18/2025 6:56 AM [facility] RDW 16.9(H) 11.0 - 15.0 % LAB HEMETOLOGY METHOD 05/18/2025 6:56 AM EST [facility] Platelets 441(H) 130 - 400 K/mcL LAB HEMETOLOGY METHOD 05/18/2025 6:56 AM EST [facility] MPV 8.8 7.0 - 11.0 FL LAB HEMETOLOGY METHOD 05/18/2025 6:56 AM EST [facility] NRBC 0.0 <1.0 % LAB HEMETOLOGY METHOD 05/18/2025 6:56 AM EST [facility] NRBC Absolute 0.00 <0.10 K/mcL LAB HEMETOLOGY METHOD 05/18/2025 6:56 AM EST [facility] Blood Venous blood specimen / Unknown Venipuncture / Unknown 05/18/2025 6:21 AM EST 05/18/2025 6:34 AM EST us Kobi Franklin MD LAB BLOOD ORDERABLE S Final Result Performing Organization Address City/[facility]/ZIP Co de Phone Number [facility] [address] [place] [address], [place] [phone] * SST tube (05/17/2025 8:56 AM EST) Extra Tube Hold for add-ons. 05/17/2025 11:01 AM EST [facility] Comment:Auto resulted. Blood Venous blood specimen / Unknown Venipuncture / Unknown 05/17/2025 8:56 AM EST 05/17/2025 9:01 AM EST us Kobi Franklin MD LAB BLOOD ORDERABLE S Final Result [facility] [address] [place] [address], [place] [phone] * (ABNORMAL) CBC auto differential (05/17/2025 8:56 AM EST) [facility] WBC 9.5 4.8 - 10.8 K/mcL LAB HEMETOLOGY METHOD 05/17/2025 9:15 AM [facility] RBC 3.40(L) 3.80 - 4.80 M/mcL LAB HEMETOLOGY METHOD 05/17/2025 9:15 AM [facility] Hemoglobin 9.7(L) 11.5 - 16.0 g/dL LAB HEMETOLOGY METHOD 05/17/2025 9:15 AM [facility] Hematocrit 32.2(L) 35.0 - 47.0 % LAB HEMETOLOGY METHOD 05/17/2025 9:15 AM [facility] MCV 95.8 79.0 - 98.0 FL LAB HEMETOLOGY METHOD 05/17/2025 9:15 AM [facility] MCH 28.9 27.0 - 32.0 pcg LAB HEMETOLOGY METHOD 05/17/2025 9:15 AM [facility] MCHC 30.1(L) 32.0 - 37.0 g/dL LAB HEMETOLOGY METHOD 05/17/2025 9:15 AM [facility] RDW 17.2(H) 11.0 - 15.0 % LAB HEMETOLOGY METHOD 05/17/2025 9:15 AM [facility] Platelets 469(H) 130 - 400 K/mcL LAB HEMETOLOGY METHOD 05/17/2025 9:15 AM [facility] MPV 8.4 7.0 - 11.0 FL LAB HEMETOLOGY METHOD 05/17/2025 9:15 AM [facility] NRBC 0.0 <1.0 % LAB HEMETOLOGY METHOD 05/17/2025 9:15 AM [facility] NRBC Absolute 0.00 <0.10 K/mcL LAB HEMETOLOGY METHOD 05/17/2025 9:15 AM [facility] Neutrophils Relative 74.7 % LAB HEMETOLOGY METHOD 05/17/2025 9:15 AM [facility] Lymphocytes Relative 13.1 % LAB HEMETOLOGY METHOD 05/17/2025 9:15 AM [facility] Monocytes Relative 8.6 % LAB HEMETOLOGY METHOD 05/17/2025 9:15 AM [facility] Eosinophils Relative 2.2 % LAB HEMETOLOGY METHOD 05/17/2025 9:15 AM [facility] Basophils Relative 0.7 % LAB HEMETOLOGY METHOD 05/17/2025 9:15 AM [facility] Immature Granulocytes Relative 0.7 % LAB HEMETOLOGY METHOD 05/17/2025 9:15 AM [facility] Neutrophils Absolute 7.08(H) 1.50 - 7.00 K/mcL LAB HEMETOLOGY METHOD 05/17/2025 9:15 AM [facility] Lymphocytes Absolute 1.24 1.00 - 5.00 K/mcL LAB HEMETOLOGY METHOD 05/17/2025 9:15 AM [facility] Monocytes Absolute 0.82 0.20 - 1.00 K/mcL LAB HEMETOLOGY METHOD 05/17/2025 9:15 AM [facility] Eosinophils Absolute 0.21 0.00 - 0.50 K/mcL LAB HEMETOLOGY METHOD 05/17/2025 9:15 AM [facility] Basophils Absolute 0.07 0.00 - 0.20 K/mcL LAB HEMETOLOGY METHOD 05/17/2025 9:15 AM [facility] Immature Granulocytes Absolute 0.07(H) 0.00 - 0.03 K/mcL LAB HEMETOLOGY METHOD 05/17/2025 9:15 AM [facility] Blood Venous blood specimen / Unknown Venipuncture / Unknown 05/17/2025 8:56 AM EST 05/17/2025 9:00 AM EST Gris Mojica MD LAB BLOOD ORDERABLES Final Resul t [facility] [address] [place] [address], [place] [phone] * (ABNORMAL) Magnesium (05/16/2025 6:31 AM EST) Magnesium 1.7(L) 1.9 - 2.6 mg/dL 05/16/2025 7:16 AM [facility] Blood Venous blood specimen / Unknown Venipuncture / Unknown 05/16/2025 6:31 AM EST 05/16/2025 6:39 AM EST Kobi Franklin MD LAB BLOOD ORDERABLE S Final Result Performing Organization Address [facility]/ZIP Co de Phone Number [facility] [address] [place] [address], [place] [phone] * (ABNORMAL) Basic metabolic panel (05/16/2025 6:31 AM EST) Sodium 143 133 - 145 mmol/L 05/16/2025 7:16 AM [facility] Potassium 4.5 3.5 - 5.5 mmol/L 05/16/2025 7:16 AM [facility] Chloride 104 96 - 110 mmol/L 05/16/2025 7:16 AM [facility] CO2 31 21 - 32 mmol/L 05/16/2025 7:16 AM [facility] Anion Gap 8 3 - 11 05/16/2025 7:16 AM [facility] Glucose 97 70 - 100 mg/dL 05/16/2025 7:16 AM EST [facility] BUN 47(H) 5 - 25 mg/dL 05/16/2025 7:16 AM [facility] Creatinine 0.69 0.50 - 1.10 mg/dL 05/16/2025 7:16 AM [facility] eGFR 87 >=60 mL/min/1. 73m2 05/16/2025 7:16 AM [facility] Comment:Calculation based on the Chronic Kidney Disease Epidemiology Collaboration (CKD-EPI) equation refit without adjustment for race. BUN/Creatinine Ratio 68.1 05/16/2025 7:16 AM [facility] Calcium 8.0(L) 8.5 - 10.5 mg/dL 05/16/2025 7:16 AM [facility] Blood Venous blood specimen / Unknown Venipuncture / Unknown 05/16/2025 6:31 AM EST 05/16/2025 6:39 AM EST Kobi Veronica Franklin MD LAB BLOOD ORDERABLE S Final Result [facility] [address] [place] [address], * (ABNORMAL) Complete blood count (05/16/2025 6:31 AM EST) WBC 12.1(H) 4.8 - 10.8 K/mcL LAB HEMETOLOGY METHOD 05/16/2025 6:56 AM [facility] RBC 3.10(L) 3.80 - 4.80 M/[facility] LAB HEMETOLOGY METHOD 05/16/2025 6:56 AM [facility] Hemoglobin 9.0(L) 11.5 - 16.0 g/dL LAB HEMETOLOGY METHOD 05/16/2025 6:56 AM [facility] Hematocrit 29.4(L) 35.0 - 47.0 % LAB HEMETOLOGY METHOD 05/16/2025 6:56 AM EST [facility] MCV 94.8 79.0 - 98.0 FL LAB HEMETOLOGY METHOD 05/16/2025 6:56 AM [facility] MCH 29.0 27.0 - 32.0 pcg LAB HEMETOLOGY METHOD 05/16/2025 6:56 AM EST [facility] MCHC 30.6(L) 32.0 - 37.0 g/dL LAB HEMETOLOGY METHOD 05/16/2025 6:56 AM [facility] RDW 17.0(H) 11.0 - 15.0 % LAB HEMETOLOGY METHOD 05/16/2025 6:56 AM [facility] Platelets 461(H) 130 - 400 K/mcL LAB HEMETOLOGY METHOD 05/16/2025 6:56 AM EST [facility] MPV 8.9 7.0 - 11.0 FL LAB HEMETOLOGY METHOD 05/16/2025 6:56 AM EST [facility] NRBC 0.0 <1.0 % LAB HEMETOLOGY METHOD 05/16/2025 6:56 AM [facility] NRBC Absolute 0.00 <0.10 K/mcL LAB HEMETOLOGY METHOD 05/16/2025 6:56 AM [facility] Blood Venous blood specimen / Unknown Venipuncture / Unknown 05/16/2025 6:31 AM EST 05/16/2025 6:39 AM EST Kobi Franklin MD LAB BLOOD ORDERABLE S Final Result [facility] [address] [place] [address], * Phosphorus (05/16/2025 6:31 AM EST) Phosphorus 3.3 2.5 - 4.5 mg/dL 05/16/2025 7:17 AM EST [facility] Blood Venous blood specimen / Unknown Venipuncture / Unknown 05/16/2025 6:31 AM EST 05/16/2025 6:39 AM EST Kobi Franklin MD LAB BLOOD ORDERABLE S Final Result Performing Organization Address [facility]/ZIP Co de Phone Number [facility] [address] [place] [address], [place] [phone] * Culture urine (05/15/2025 4:37 PM EST) [facility] Culture, Urine <10,000 cfu/ml, insignificant count, no further workup. 05/16/2025 2:41 PM EST [facility] Urine Urine specimen obtained by clean catch procedure / Unknown Non-blood Collection / Unknown 05/15/2025 4:37 PM EST 05/15/2025 6:16 PM EST Kamilla SUMNER LAB MICROBIOLOGY - GENERAL ORDER NISH Final Result Performing Organization Address [facility] de Phone Number [facility] [address] [place] [address], [place] [phone] * Solorzano urine culture tube (05/15/2025 4:37 PM EST) Pathologist [facility] Extra Tube Hold for add-ons. 05/15/2025 7:01 PM EST [facility] Comment:Auto resulted. Urine Urine specimen obtained by clean catch procedure / Unknown Non-blood Collection / Unknown 05/15/2025 4:37 PM EST 05/15/2025 5:26 PM EST Kamilla SUMNER LAB URINE ORDERABLES Final Resul t [facility] [address] [place] [address], [place] [phone] * (ABNORMAL) Urinalysis with reflex microscopic and culture (05/15/2025 4:37 PM EST) Specific Sumner Urine 1.017 1.003 - 1.030 LAB URINALYSIS - AUTOMATED METHOD 05/15/2025 6:16 PM [facility] pH, Urine 7.0 5.0 - 8.0 pH LAB URINALYSIS - AUTOMATED METHOD 05/15/2025 6:16 PM [facility] Leukocytes, Urine Trace(A) Negative LAB URINALYSIS - AUTOMATED METHOD 05/15/2025 6:16 PM [facility] Nitrite, Urine Negative Negative LAB URINALYSIS - AUTOMATED METHOD 05/15/2025 6:16 PM [facility] Protein, Urine Negative <=Trace mg/dL LAB URINALYSIS - AUTOMATED METHOD 05/15/2025 6:16 PM [facility] Glucose, Urine Negative Negative mg/dL LAB URINALYSIS - AUTOMATED METHOD 05/15/2025 6:16 PM [facility] Ketones, Urine Negative Negative mg/dL LAB URINALYSIS - AUTOMATED METHOD 05/15/2025 6:16 PM [facility] Urobilinogen, Urine 0.2 0.2 - 1.0 mg/dL LAB URINALYSIS - AUTOMATED METHOD 05/15/2025 6:16 PM [facility] Bilirubin, Urine Negative Negative LAB URINALYSIS - AUTOMATED METHOD 05/15/2025 6:16 PM [facility] Blood, Urine Negative Negative LAB URINALYSIS - AUTOMATED METHOD 05/15/2025 6:16 PM [facility] RBC, Urine 0 0 - 4 /HPF LAB URINALYSIS - AUTOMATED METHOD 05/15/2025 6:16 PM EST [facility] WBC, Urine 5(H) 0 - 4 /HPF LAB URINALYSIS - AUTOMATED METHOD 05/15/2025 6:16 PM EST [facility] Squamous Epithelial, Urine 20 0 - 60 /LPF LAB URINALYSIS - AUTOMATED METHOD 05/15/2025 6:16 PM EST [facility] Bacteria, Urine Negative Negative /HPF LAB URINALYSIS - AUTOMATED METHOD 05/15/2025 6:16 PM [facility] Hyaline Casts, Urine 0 0 - 3 /LPF LAB URINALYSIS - AUTOMATED METHOD 05/15/2025 6:16 PM [facility] Urine Urine specimen obtained by clean catch procedure / Unknown Non-blood Collection / Unknown 05/15/2025 4:37 PM EST 05/15/2025 5:26 PM EST us Kamilla SUMNER LAB URINE ORDERABLES Final Resul t [facility] [address] [place] [address], [place] [phone] * (ABNORMAL) CBC auto differential (05/15/2025 5:51 AM EST) WBC 8.8 4.8 - 10.8 K/mcL LAB HEMETOLOGY METHOD 05/15/2025 6:44 AM [facility] RBC 3.10(L) 3.80 - 4.80 M/[facility] LAB HEMETOLOGY METHOD 05/15/2025 6:44 AM [facility] Hemoglobin 9.1(L) 11.5 - 16.0 g/dL LAB HEMETOLOGY METHOD 05/15/2025 6:44 AM [facility] Hematocrit 29.4(L) 35.0 - 47.0 % LAB HEMETOLOGY METHOD 05/15/2025 6:44 AM [facility] MCV 94.5 79.0 - 98.0 FL LAB HEMETOLOGY METHOD 05/15/2025 6:44 AM [facility] MCH 29.3 27.0 - 32.0 pcg LAB HEMETOLOGY METHOD 05/15/2025 6:44 AM [facility] MCHC 31.0(L) 32.0 - 37.0 g/dL LAB HEMETOLOGY METHOD 05/15/2025 6:44 AM [facility] RDW 17.1(H) 11.0 - 15.0 % LAB HEMETOLOGY METHOD 05/15/2025 6:44 AM [facility] Platelets 454(H) 130 - 400 K/mcL LAB HEMETOLOGY METHOD 05/15/2025 6:44 AM [facility] MPV 9.0 7.0 - 11.0 FL LAB HEMETOLOGY METHOD 05/15/2025 6:44 AM [facility] NRBC 0.0 <1.0 % LAB HEMETOLOGY METHOD 05/15/2025 6:44 AM [facility] NRBC Absolute 0.00 <0.10 K/mcL LAB HEMETOLOGY METHOD 05/15/2025 6:44 AM [facility] Neutrophils Relative 64.6 % LAB HEMETOLOGY METHOD 05/15/2025 6:44 AM [facility] Lymphocytes Relative 16.3 % LAB HEMETOLOGY METHOD 05/15/2025 6:44 AM [facility] Monocytes Relative 13.6 % LAB HEMETOLOGY METHOD 05/15/2025 6:44 AM [facility] Eosinophils Relative 3.3 % LAB HEMETOLOGY METHOD 05/15/2025 6:44 AM [facility] Basophils Relative 0.8 % LAB HEMETOLOGY METHOD 05/15/2025 6:44 AM [facility] Immature Granulocytes Relative 1.4 % LAB HEMETOLOGY METHOD 05/15/2025 6:44 AM EST [facility] Neutrophils Absolute 5.69 1.50 - 7.00 K/mcL LAB HEMETOLOGY METHOD 05/15/2025 6:44 AM EST [facility] Lymphocytes Absolute 1.43 1.00 - 5.00 K/mcL LAB HEMETOLOGY METHOD 05/15/2025 6:44 AM EST [facility] Monocytes Absolute 1.20(H) 0.20 - 1.00 K/mcL LAB HEMETOLOGY METHOD 05/15/2025 6:44 AM EST [facility] Eosinophils Absolute 0.29 0.00 - 0.50 K/mcL LAB HEMETOLOGY METHOD 05/15/2025 6:44 AM EST [facility] Basophils Absolute 0.07 0.00 - 0.20 K/mcL LAB HEMETOLOGY METHOD 05/15/2025 6:44 AM EST [facility] Immature Granulocytes Absolute 0.12(H) 0.00 - 0.03 K/mcL LAB HEMETOLOGY METHOD 05/15/2025 6:44 AM EST [facility] Blood Venous blood specimen / Unknown Venipuncture / Unknown 05/15/2025 5:51 AM EST 05/15/2025 6:16 AM EST us Amanda Woods MD LAB BLOOD ORDERABLES Final Resul t [facility] [address] [place] [address], * (ABNORMAL) Basic metabolic panel (05/15/2025 5:51 AM EST) Sodium 143 133 - 145 mmol/L 05/15/2025 7:18 AM EST [facility] Potassium 4.7 3.5 - 5.5 mmol/L 05/15/2025 7:18 AM EST [facility] Chloride 104 96 - 110 mmol/L 05/15/2025 7:18 AM [facility] CO2 33(H) 21 - 32 mmol/L 05/15/2025 7:18 AM [facility] Anion Gap 6 3 - 11 05/15/2025 7:18 AM [facility] Glucose 79 70 - 100 mg/dL 05/15/2025 7:18 AM [facility] BUN 35(H) 5 - 25 mg/dL 05/15/2025 7:18 AM [facility] Creatinine 0.87 0.50 - 1.10 mg/dL 05/15/2025 7:18 AM [facility] eGFR 67 >=60 mL/min/1. 73m2 05/15/2025 7:18 AM [facility] Comment:Calculation based on the Chronic Kidney Disease Epidemiology Collaboration (CKD-EPI) equation refit without adjustment for race. BUN/Creatinine Ratio 40.2 05/15/2025 7:18 AM [facility] Calcium 7.9(L) 8.5 - 10.5 mg/dL 05/15/2025 7:18 AM [facility] Blood Venous blood specimen / Unknown Venipuncture / Unknown 05/15/2025 5:51 AM EST 05/15/2025 6:16 AM EST us Amanda Woods MD LAB BLOOD ORDERABLES Final Resul t [facility] [address] [place] [address], * (ABNORMAL) Complete blood count (05/14/2025 7:07 AM EST) WBC 12.0(H) 4.8 - 10.8 K/mcL LAB HEMETOLOGY METHOD 05/14/2025 7:59 AM [facility] RBC 3.40(L) 3.80 - 4.80 M/mcL LAB HEMETOLOGY METHOD 05/14/2025 7:59 AM [facility] Hemoglobin 9.9(L) 11.5 - 16.0 g/dL LAB HEMETOLOGY METHOD 05/14/2025 7:59 AM [facility] Hematocrit 31.9(L) 35.0 - 47.0 % LAB HEMETOLOGY METHOD 05/14/2025 7:59 AM [facility] MCV 94.9 79.0 - 98.0 FL LAB HEMETOLOGY METHOD 05/14/2025 7:59 AM [facility] MCH 29.5 27.0 - 32.0 pcg LAB HEMETOLOGY METHOD 05/14/2025 7:59 AM [facility] MCHC 31.0(L) 32.0 - 37.0 g/dL LAB HEMETOLOGY METHOD 05/14/2025 7:59 AM [facility] RDW 17.2(H) 11.0 - 15.0 % LAB HEMETOLOGY METHOD 05/14/2025 7:59 AM [facility] Platelets 470(H) 130 - 400 K/mcL LAB HEMETOLOGY METHOD 05/14/2025 7:59 AM [facility] MPV 9.0 7.0 - 11.0 FL LAB HEMETOLOGY METHOD 05/14/2025 7:59 AM [facility] NRBC 0.0 <1.0 % LAB HEMETOLOGY METHOD 05/14/2025 7:59 AM [facility] NRBC Absolute 0.00 <0.10 K/mcL LAB HEMETOLOGY METHOD 05/14/2025 7:59 AM [facility] Blood Venous blood specimen / Unknown Venipuncture / Unknown 05/14/2025 7:07 AM EST 05/14/2025 7:44 AM EST us Adelina SUMNER LAB BLOOD ORDERABLES Final R esult [facility] [address] [place] [address], * (ABNORMAL) Basic metabolic panel (05/14/2025 7:07 AM EST) Sodium 139 133 - 145 mmol/L 05/14/2025 8:22 AM [facility] Potassium 4.2 3.5 - 5.5 mmol/L 05/14/2025 8:22 AM [facility] Chloride 100 96 - 110 mmol/L 05/14/2025 8:22 AM [facility] CO2 31 21 - 32 mmol/L 05/14/2025 8:22 AM [facility] Anion Gap 8 3 - 11 05/14/2025 8:22 AM [facility] Glucose 93 70 - 100 mg/dL 05/14/2025 8:22 AM [facility] BUN 25 5 - 25 mg/dL 05/14/2025 8:22 AM [facility] Creatinine 0.71 0.50 - 1.10 mg/dL 05/14/2025 8:22 AM [facility] eGFR 85 >=60 mL/min/1. 73m2 05/14/2025 8:22 AM [facility] Comment:Calculation based on the Chronic Kidney Disease Epidemiology Collaboration (CKD-EPI) equation refit without adjustment for race. BUN/Creatinine Ratio 35.2 05/14/2025 8:22 AM [facility] Calcium 8.3(L) 8.5 - 10.5 mg/dL 05/14/2025 8:22 AM [facility] Blood Venous blood specimen / Unknown Venipuncture / Unknown 05/14/2025 7:07 AM EST 05/14/2025 7:43 AM EST us Adelina SUMNER LAB BLOOD ORDERABLES Final R esult [facility], INCNurys [facility] ([facility]) [facility] [address] [place] [address], * XR Femur 1 View Right (05/13/2025 11:58 AM EST) Anatomical Region Laterality Modality Lower Extremities, Femur Right Radiogr aphic Imaging 05/13/2025 4:08 PM EST Impressions 05/13/2025 4:13 PM EST Impression: New postop changes in the distal femur, with 2 additional sideplates placed, traversing the acute distal femoral diaphyseal fracture. Alignment of the major fracture fragments is anatomic. Romeo SUMNER ([id number]) -------- FINAL REPORT -------- Dictated By: Carmen Prado Dictated Date: 05/13/2025 16:08 ET Assigned Physician: Carmen Prado Reviewed and Electronically Signed By: Carmen Prado Signed Date: 05/13/2025 16:13 ET Workstation ID: [id number] Transcribed By: Self Edit Transcribed Date: 05/13/2025 [...] femur from 11:40 AM are submitted from [facility]. The patient has undergone interim open reduction [...] major fracture fragments is anatomic. Romeo SUMNER ([id number]) -------- FINAL REPORT -------- Dictated By: Carmen Prado Dictated Date: 05/13/2025 16:08 ET Assigned Physician: Carmen Prado Reviewed and Electronically Signed By: Carmen Prado Signed Date: 05/13/2025 16:13 ET Workstation ID: [id number] Transcribed By: Self Edit Transcribed Date: 05/13/2025 [...] Signed Date: 05/13/2025 13:19 ET Workstation ID: [id number] Transcribed By: Self Edit Transcribed Date: 05/13/2025 [...] Signed Date: 05/13/2025 13:19 ET Workstation ID: [id number] Transcribed By: Self Edit Transcribed Date: 05/13/2025 13:18 ET us Adelina SUMNER IMG XR PROCEDURES Final Resu lt * (ABNORMAL) Culture wound deep (05/13/2025 10:25 AM EST) Culture, Wound Enterobacter cloacae complex(A) SAUL 05/16/2025 9:47 AM EST [facility] Comment: The organism value for this result has been updated. These results have been appended to the previously preliminary verified report. This is an edited result. Previous organism was Gram negative bacilli on 05/14/2025 at 1332 EST. Culture, Wound Citrobacter sedlakii(A) SAUL 05/16/2025 9:47 AM EST [facility] Comment: The organism value for this result has been updated. These results have been appended to the previously preliminary verified report. Gram Stain Result Few Polymorphonuclear leukocytes 05/16/2025 9:47 AM EST [facility] Gram Stain Result No epithelial cells seen 05/16/2025 9:47 AM EST [facility] Gram Stain Result No organisms seen 05/16/2025 9:47 AM EST [facility] Swab Right hip region structure / [...] MICROBIOLOGY - GENERAL ORDER NISH Final Result [facility] [address] [place] [address], [place] [phone] * (ABNORMAL) Culture wound deep (05/13/2025 10:24 AM EST) Culture, Wound Enterobacter cloacae complex(A) SAUL 05/16/2025 9:45 AM EST [facility] Comment: The organism value for this result has been updated. These results have been appended to the previously preliminary verified report. This is an edited result. Previous organism was Gram negative bacilli on 05/14/2025 at 1327 EST. Gram Stain Result Few Polymorphonuclear leukocytes 05/16/2025 9:45 AM EST [facility] Gram Stain Result No epithelial cells seen 05/16/2025 9:45 AM EST [facility] Gram Stain Result No organisms seen 05/16/2025 9:45 AM EST [facility] Swab Right hip region structure / [...] MICROBIOLOGY - GENERAL ORDER NISH Final Result [facility] [address] [place] [address], [place] [phone] * (ABNORMAL) Culture wound deep (05/13/2025 10:22 AM EST) Culture, Wound Enterobacter cloacae complex(A) SAUL 05/16/2025 9:57 AM EST [facility] Comment: The organism value for this result has been updated. These results have been appended to the previously preliminary verified report. This is an edited result. Previous organism was Gram negative bacilli on 05/14/2025 at 1337 EST. Culture, Wound Citrobacter sedlakii(A) SAUL 05/16/2025 9:57 AM EST [facility] Comment: The organism value for this result has been updated. These results have been appended to the previously preliminary verified report. Gram Stain Result Few Polymorphonuclear leukocytes 05/16/2025 9:57 AM EST [facility] Gram Stain Result No epithelial cells seen 05/16/2025 9:57 AM EST [facility] Gram Stain Result No organisms seen 05/16/2025 9:57 AM [facility] Swab Structure of right thigh [...] 4 ug/ml: Susceptible Enterobacter cloacae complex Gentamicin ASUL <=1 ug/ml: Susceptible Enterobacter cloacae complex Ciprofloxacin [...] SAUL <=0.25 ug/ml: Susceptible Citrobacter sedlakii Amikacin SUAL 2 ug/ml: Susceptible Citrobacter sedlakii Gentamicin SAUL <=1 ug/ml: Susceptible Citrobacter sedlakii Ciprofloxacin SAUL <=0.06 ug/ml: Susceptible Citrobacter sedlakii Levofloxacin SAUL <=0.12 ug/ml: Susceptible Citrobacter sedlakii Trimethoprim/Sulfam ethoxaz ole SAUL <=20 ug/ml: Susceptible Gris Mojica MD LAB MICROBIOLOGY - GENERAL ORDER NISH Final Result [facility] [address] [place] [address], * (ABNORMAL) CBC auto differential (05/13/2025 6:01 AM EST) [facility] WBC 9.8 4.8 - 10.8 K/mcL LAB HEMETOLOGY METHOD 05/13/2025 6:44 AM EST [facility] RBC 3.50(L) 3.80 - 4.80 M/mcL LAB HEMETOLOGY METHOD 05/13/2025 6:44 AM EST [facility] Hemoglobin 10.2(L) 11.5 - 16.0 g/dL LAB HEMETOLOGY METHOD 05/13/2025 6:44 AM [facility] Hematocrit 32.9(L) 35.0 - 47.0 % LAB HEMETOLOGY METHOD 05/13/2025 6:44 AM [facility] MCV 94.3 79.0 - 98.0 FL LAB HEMETOLOGY METHOD 05/13/2025 6:44 AM [facility] MCH 29.2 27.0 - 32.0 pcg LAB HEMETOLOGY METHOD 05/13/2025 6:44 AM [facility] MCHC 31.0(L) 32.0 - 37.0 g/dL LAB HEMETOLOGY METHOD 05/13/2025 6:44 AM [facility] RDW 17.2(H) 11.0 - 15.0 % LAB HEMETOLOGY METHOD 05/13/2025 6:44 AM [facility] Platelets 463(H) 130 - 400 K/mcL LAB HEMETOLOGY METHOD 05/13/2025 6:44 AM [facility] MPV 9.3 7.0 - 11.0 FL LAB HEMETOLOGY METHOD 05/13/2025 6:44 AM [facility] NRBC 0.0 <1.0 % LAB HEMETOLOGY METHOD 05/13/2025 6:44 AM [facility] NRBC Absolute 0.00 <0.10 K/mcL LAB HEMETOLOGY METHOD 05/13/2025 6:44 AM [facility] Neutrophils Relative 65.3 % LAB HEMETOLOGY METHOD 05/13/2025 6:44 AM [facility] Lymphocytes Relative 16.2 % LAB HEMETOLOGY METHOD 05/13/2025 6:44 AM [facility] Monocytes Relative 12.7 % LAB HEMETOLOGY METHOD 05/13/2025 6:44 AM [facility] Eosinophils Relative 3.8 % LAB HEMETOLOGY METHOD 05/13/2025 6:44 AM EST [facility] Basophils Relative 0.9 % LAB HEMETOLOGY METHOD 05/13/2025 6:44 AM EST [facility] Immature Granulocytes Relative 1.1 % LAB HEMETOLOGY METHOD 05/13/2025 6:44 AM EST [facility] Neutrophils Absolute 6.43 1.50 - 7.00 K/mcL LAB HEMETOLOGY METHOD 05/13/2025 6:44 AM EST [facility] Lymphocytes Absolute 1.59 1.00 - 5.00 K/mcL LAB HEMETOLOGY METHOD 05/13/2025 6:44 AM EST [facility] Monocytes Absolute 1.25(H) 0.20 - 1.00 K/mcL LAB HEMETOLOGY METHOD 05/13/2025 6:44 AM EST [facility] Eosinophils Absolute 0.37 0.00 - 0.50 K/mcL LAB HEMETOLOGY METHOD 05/13/2025 6:44 AM EST [facility] Basophils Absolute 0.09 0.00 - 0.20 K/mcL LAB HEMETOLOGY METHOD 05/13/2025 6:44 AM EST [facility] Immature Granulocytes Absolute 0.11(H) 0.00 - 0.03 K/mcL LAB HEMETOLOGY METHOD 05/13/2025 6:44 AM EST [facility] Blood Venous blood specimen / Unknown Venipuncture / Unknown 05/13/2025 6:01 AM EST 05/13/2025 6:18 AM EST us Amanda Woods MD LAB BLOOD ORDERABLES Final Resul t [facility] [address] [place] [address], [place] [phone] * (ABNORMAL) Basic metabolic panel (05/13/2025 6:01 AM EST) Sodium 143 133 - 145 mmol/L 05/13/2025 7:30 AM [facility] Potassium 4.6 3.5 - 5.5 mmol/L 05/13/2025 7:30 AM [facility] Chloride 102 96 - 110 mmol/L 05/13/2025 7:30 AM [facility] CO2 32 21 - 32 mmol/L 05/13/2025 7:30 AM [facility] Anion Gap 9 3 - 11 05/13/2025 7:30 AM [facility] Glucose 84 70 - 100 mg/dL 05/13/2025 7:30 AM [facility] BUN 27(H) 5 - 25 mg/dL 05/13/2025 7:30 AM [facility] Creatinine 0.74 0.50 - 1.10 mg/dL 05/13/2025 7:30 AM [facility] eGFR 81 >=60 mL/min/1. 73m2 05/13/2025 7:30 AM [facility] Comment:Calculation based on the Chronic Kidney Disease Epidemiology Collaboration (CKD-EPI) equation refit without adjustment for race. BUN/Creatinine Ratio 36.5 05/13/2025 7:30 AM [facility] Calcium 8.4(L) 8.5 - 10.5 mg/dL 05/13/2025 7:30 AM [facility] Blood Venous blood specimen / Unknown Venipuncture / Unknown 05/13/2025 6:01 AM EST 05/13/2025 6:17 AM EST us Amanda Woods MD LAB BLOOD ORDERABLES Final Resul t [facility] [address] [place] [address], * (ABNORMAL) CBC auto differential (05/12/2025 5:45 AM EST) [facility] WBC 8.1 4.8 - 10.8 K/mcL LAB HEMETOLOGY METHOD 05/12/2025 6:52 AM [facility] RBC 3.40(L) 3.80 - 4.80 M/mcL LAB HEMETOLOGY METHOD 05/12/2025 6:52 AM [facility] Hemoglobin 9.9(L) 11.5 - 16.0 g/dL LAB HEMETOLOGY METHOD 05/12/2025 6:52 AM [facility] Hematocrit 31.4(L) 35.0 - 47.0 % LAB HEMETOLOGY METHOD 05/12/2025 6:52 AM [facility] MCV 93.5 79.0 - 98.0 FL LAB HEMETOLOGY METHOD 05/12/2025 6:52 AM [facility] MCH 29.5 27.0 - 32.0 pcg LAB HEMETOLOGY METHOD 05/12/2025 6:52 AM [facility] MCHC 31.5(L) 32.0 - 37.0 g/dL LAB HEMETOLOGY METHOD 05/12/2025 6:52 AM [facility] RDW 17.6(H) 11.0 - 15.0 % LAB HEMETOLOGY METHOD 05/12/2025 6:52 AM [facility] Platelets 407(H) 130 - 400 K/mcL LAB HEMETOLOGY METHOD 05/12/2025 6:52 AM [facility] MPV 9.4 7.0 - 11.0 FL LAB HEMETOLOGY METHOD 05/12/2025 6:52 AM [facility] NRBC 0.0 <1.0 % LAB HEMETOLOGY METHOD 05/12/2025 6:52 AM [facility] NRBC Absolute 0.00 <0.10 K/mcL LAB HEMETOLOGY METHOD 05/12/2025 6:52 AM [facility] Neutrophils Relative 66.4 % LAB HEMETOLOGY METHOD 05/12/2025 6:52 AM [facility] Lymphocytes Relative 14.2 % LAB HEMETOLOGY METHOD 05/12/2025 6:52 AM [facility] Monocytes Relative 13.5 % LAB HEMETOLOGY METHOD 05/12/2025 6:52 AM [facility] Eosinophils Relative 4.1 % LAB HEMETOLOGY METHOD 05/12/2025 6:52 AM [facility] Basophils Relative 0.6 % LAB HEMETOLOGY METHOD 05/12/2025 6:52 AM [facility] Immature Granulocytes Relative 1.2 % LAB HEMETOLOGY METHOD 05/12/2025 6:52 AM [facility] Neutrophils Absolute 5.34 1.50 - 7.00 K/mcL LAB HEMETOLOGY METHOD 05/12/2025 6:52 AM [facility] Lymphocytes Absolute 1.14 1.00 - 5.00 K/mcL LAB HEMETOLOGY METHOD 05/12/2025 6:52 AM [facility] Monocytes Absolute 1.09(H) 0.20 - 1.00 K/mcL LAB HEMETOLOGY METHOD 05/12/2025 6:52 AM [facility] Eosinophils Absolute 0.33 0.00 - 0.50 K/mcL LAB HEMETOLOGY METHOD 05/12/2025 6:52 AM [facility] Basophils Absolute 0.05 0.00 - 0.20 K/mcL LAB HEMETOLOGY METHOD 05/12/2025 6:52 AM [facility] Immature Granulocytes Absolute 0.10(H) 0.00 - 0.03 K/mcL LAB HEMETOLOGY METHOD 05/12/2025 6:52 AM [facility] Blood Venous blood specimen / Unknown Venipuncture / Unknown 05/12/2025 5:45 AM EST 05/12/2025 6:28 AM EST us Amanda Woods MD LAB BLOOD ORDERABLES Final Resul t [facility] [address] [place] [address], * (ABNORMAL) Basic metabolic panel (05/12/2025 5:45 AM EST) Sodium 142 133 - 145 mmol/L LAB CHEMISTRY METHOD 05/12/2025 7:56 AM [facility] Potassium 4.5 3.5 - 5.5 mmol/L LAB CHEMISTRY METHOD 05/12/2025 7:56 AM [facility] Chloride 103 96 - 110 mmol/L LAB CHEMISTRY METHOD 05/12/2025 7:56 AM [facility] CO2 33(H) 21 - 32 mmol/L LAB CHEMISTRY METHOD 05/12/2025 7:56 AM [facility] Anion Gap 6 3 - 11 LAB CHEMISTRY METHOD 05/12/2025 7:56 AM [facility] Glucose 88 70 - 100 mg/dL LAB CHEMISTRY METHOD 05/12/2025 7:56 AM [facility] BUN 24 5 - 25 mg/dL LAB CHEMISTRY METHOD 05/12/2025 7:56 AM [facility] Creatinine 0.62 0.50 - 1.10 mg/dL LAB CHEMISTRY METHOD 05/12/2025 7:56 AM [facility] eGFR 89 >=60 mL/min/1. 73m2 LAB CHEMISTRY METHOD 05/12/2025 7:56 AM [facility] Comment:Calculation based on the Chronic Kidney Disease Epidemiology Collaboration (CKD-EPI) equation refit without adjustment for race. BUN/Creatinine Ratio 38.7 LAB CHEMISTRY METHOD 05/12/2025 7:56 AM [facility] Calcium 8.8 8.5 - 10.5 mg/dL LAB CHEMISTRY METHOD 05/12/2025 7:56 AM [facility] Blood Venous blood specimen / Unknown Venipuncture / Unknown 05/12/2025 5:45 AM EST 05/12/2025 6:29 AM EST us Amanda Woods MD LAB BLOOD ORDERABLES Final Resul t [facility] [address] [place] [address], * (ABNORMAL) CBC auto differential (05/11/2025 6:16 AM EST) WBC 7.8 4.8 - 10.8 K/mcL LAB HEMETOLOGY METHOD 05/11/2025 7:42 AM [facility] RBC 3.30(L) 3.80 - 4.80 M/mcL LAB HEMETOLOGY METHOD 05/11/2025 7:42 AM [facility] Hemoglobin 9.7(L) 11.5 - 16.0 g/dL LAB HEMETOLOGY METHOD 05/11/2025 7:42 AM [facility] Hematocrit 30.6(L) 35.0 - 47.0 % LAB HEMETOLOGY METHOD 05/11/2025 7:42 AM [facility] MCV 93.0 79.0 - 98.0 FL LAB HEMETOLOGY METHOD 05/11/2025 7:42 AM [facility] MCH 29.5 27.0 - 32.0 pcg LAB HEMETOLOGY METHOD 05/11/2025 7:42 AM [facility] MCHC 31.7(L) 32.0 - 37.0 g/dL LAB HEMETOLOGY METHOD 05/11/2025 7:42 AM [facility] RDW 18.1(H) 11.0 - 15.0 % LAB HEMETOLOGY METHOD 05/11/2025 7:42 AM [facility] Platelets 366 130 - 400 K/mcL LAB HEMETOLOGY METHOD 05/11/2025 7:42 AM [facility] MPV 9.5 7.0 - 11.0 FL LAB HEMETOLOGY METHOD 05/11/2025 7:42 AM [facility] NRBC 0.0 <1.0 % LAB HEMETOLOGY METHOD 05/11/2025 7:42 AM [facility] NRBC Absolute 0.00 <0.10 K/mcL LAB HEMETOLOGY METHOD 05/11/2025 7:42 AM [facility] Neutrophils Relative 65.0 % LAB HEMETOLOGY METHOD 05/11/2025 7:42 AM [facility] Lymphocytes Relative 14.1 % LAB HEMETOLOGY METHOD 05/11/2025 7:42 AM [facility] Monocytes Relative 15.5 % LAB HEMETOLOGY METHOD 05/11/2025 7:42 AM [facility] Eosinophils Relative 3.8 % LAB HEMETOLOGY METHOD 05/11/2025 7:42 AM [facility] Basophils Relative 0.6 % LAB HEMETOLOGY METHOD 05/11/2025 7:42 AM [facility] Immature Granulocytes Relative 1.0 % LAB HEMETOLOGY METHOD 05/11/2025 7:42 AM [facility] Neutrophils Absolute 5.07 1.50 - 7.00 K/mcL LAB HEMETOLOGY METHOD 05/11/2025 7:42 AM [facility] Lymphocytes Absolute 1.10 1.00 - 5.00 K/mcL LAB HEMETOLOGY METHOD 05/11/2025 7:42 AM [facility] Monocytes Absolute 1.21(H) 0.20 - 1.00 K/mcL LAB HEMETOLOGY METHOD 05/11/2025 7:42 AM EST [facility] Eosinophils Absolute 0.30 0.00 - 0.50 K/[facility] LAB HEMETOLOGY METHOD 05/11/2025 7:42 AM EST [facility] Basophils Absolute 0.05 0.00 - 0.20 K/[facility] LAB HEMETOLOGY METHOD 05/11/2025 7:42 AM EST [facility] Immature Granulocytes Absolute 0.08(H) 0.00 - 0.03 K/[facility] LAB HEMETOLOGY METHOD 05/11/2025 7:42 AM EST [facility] Blood Venous blood specimen / Unknown Venipuncture / Unknown 05/11/2025 6:16 AM EST 05/11/2025 7:26 AM EST us Adelina SUMNER LAB BLOOD ORDERABLES Final R esult [facility] [address] [place] [address], [place] [phone] * SST tube (05/11/2025 6:14 AM EST) Pathologist [facility] Extra Tube Hold for add-ons. 05/11/2025 9:01 AM EST [facility] Comment:Auto resulted. Blood Venous blood specimen / Unknown 05/11/2025 6:14 AM EST 05/11/2025 7:27 AM EST us Amanda Woods MD LAB BLOOD ORDERABLES Final Resul t [facility] [address] [place] [address], [place] [phone] * (ABNORMAL) CBC auto differential (05/10/2025 6:01 AM EST) WBC 8.3 4.8 - 10.8 K/[facility] LAB HEMETOLOGY METHOD 05/10/2025 6:43 AM [facility] RBC 3.20(L) 3.80 - 4.80 M/mcL LAB HEMETOLOGY METHOD 05/10/2025 6:43 AM [facility] Hemoglobin 9.5(L) 11.5 - 16.0 g/dL LAB HEMETOLOGY METHOD 05/10/2025 6:43 AM [facility] Hematocrit 29.3(L) 35.0 - 47.0 % LAB HEMETOLOGY METHOD 05/10/2025 6:43 AM [facility] MCV 91.6 79.0 - 98.0 FL LAB HEMETOLOGY METHOD 05/10/2025 6:43 AM [facility] MCH 29.7 27.0 - 32.0 pcg LAB HEMETOLOGY METHOD 05/10/2025 6:43 AM [facility] MCHC 32.4 32.0 - 37.0 g/dL LAB HEMETOLOGY METHOD 05/10/2025 6:43 AM [facility] RDW 19.1(H) 11.0 - 15.0 % LAB HEMETOLOGY METHOD 05/10/2025 6:43 AM [facility] Platelets 327 130 - 400 K/mcL LAB HEMETOLOGY METHOD 05/10/2025 6:43 AM [facility] MPV 9.0 7.0 - 11.0 FL LAB HEMETOLOGY METHOD 05/10/2025 6:43 AM [facility] NRBC 0.0 <1.0 % LAB HEMETOLOGY METHOD 05/10/2025 6:43 AM [facility] NRBC Absolute 0.00 <0.10 K/mcL LAB HEMETOLOGY METHOD 05/10/2025 6:43 AM [facility] Neutrophils Relative 60.2 % LAB HEMETOLOGY METHOD 05/10/2025 6:43 AM [facility] Lymphocytes Relative 16.1 % LAB HEMETOLOGY METHOD 05/10/2025 6:43 AM [facility] Monocytes Relative 17.2 % LAB HEMETOLOGY METHOD 05/10/2025 6:43 AM [facility] Eosinophils Relative 4.5 % LAB HEMETOLOGY METHOD 05/10/2025 6:43 AM [facility] Basophils Relative 0.7 % LAB HEMETOLOGY METHOD 05/10/2025 6:43 AM [facility] Immature Granulocytes Relative 1.3 % LAB HEMETOLOGY METHOD 05/10/2025 6:43 AM [facility] Neutrophils Absolute 4.96 1.50 - 7.00 K/mcL LAB HEMETOLOGY METHOD 05/10/2025 6:43 AM [facility] Lymphocytes Absolute 1.33 1.00 - 5.00 K/mcL LAB HEMETOLOGY METHOD 05/10/2025 6:43 AM [facility] Monocytes Absolute 1.42(H) 0.20 - 1.00 K/mcL LAB HEMETOLOGY METHOD 05/10/2025 6:43 AM [facility] Eosinophils Absolute 0.37 0.00 - 0.50 K/mcL LAB HEMETOLOGY METHOD 05/10/2025 6:43 AM [facility] Basophils Absolute 0.06 0.00 - 0.20 K/mcL LAB HEMETOLOGY METHOD 05/10/2025 6:43 AM [facility] Immature Granulocytes Absolute 0.11(H) 0.00 - 0.03 K/mcL LAB HEMETOLOGY METHOD 05/10/2025 6:43 AM [facility] Blood Venous blood specimen / Unknown Venipuncture / Unknown 05/10/2025 6:01 AM EST 05/10/2025 6:22 AM EST us Adelina SUMNER LAB BLOOD ORDERABLES Final R esult [facility] [address] [place] [address], * (ABNORMAL) Basic metabolic panel (05/10/2025 6:01 AM EST) Sodium 140 133 - 145 mmol/L LAB CHEMISTRY METHOD 05/10/2025 7:12 AM [facility] Potassium 4.4 3.5 - 5.5 mmol/L LAB CHEMISTRY METHOD 05/10/2025 7:12 AM [facility] Chloride 104 96 - 110 mmol/L LAB CHEMISTRY METHOD 05/10/2025 7:12 AM [facility] CO2 34(H) 21 - 32 mmol/L LAB CHEMISTRY METHOD 05/10/2025 7:12 AM [facility] Anion Gap 2(L) 3 - 11 LAB CHEMISTRY METHOD 05/10/2025 7:12 AM [facility] Glucose 96 70 - 100 mg/dL LAB CHEMISTRY METHOD 05/10/2025 7:12 AM [facility] BUN 27(H) 5 - 25 mg/dL LAB CHEMISTRY METHOD 05/10/2025 7:12 AM [facility] Creatinine 0.68 0.50 - 1.10 mg/dL LAB CHEMISTRY METHOD 05/10/2025 7:12 AM [facility] eGFR 87 >=60 mL/min/1. 73m2 LAB CHEMISTRY METHOD 05/10/2025 7:12 AM [facility] Comment:Calculation based on the Chronic Kidney Disease Epidemiology Collaboration (CKD-EPI) equation refit without adjustment for race. BUN/Creatinine Ratio 39.7 LAB CHEMISTRY METHOD 05/10/2025 7:12 AM [facility] Calcium 8.6 8.5 - 10.5 mg/dL LAB CHEMISTRY METHOD 05/10/2025 7:12 AM EST [facility] Blood Venous blood specimen / Unknown Venipuncture / Unknown 05/10/2025 6:01 AM EST 05/10/2025 6:22 AM EST us Mecca Barrios MD LAB BLOOD ORDERABLES Final R esult [facility] [address] [place] [address], [place] [phone] * Transfuse RBC, Leukoreduced (05/09/2025 9:42 PM EST) Result Hai Barrios MD BLOOD TRANSFUSION ORDERABLES Final Result * Transfuse RBC: 1 Units, Leukoreduced (05/09/2025 9:42 PM EST) us Mecca Barrios MD BLOOD TRANSFUSION ORDERABLES Final Result * Type and screen (05/09/2025 1:41 PM EST) ABO Group O 05/09/2025 3:07 PM EST [facility] Rh Type Positive 05/09/2025 3:07 PM EST [facility] Antibody Screen Negative 05/09/2025 3:07 PM EST [facility] Blood Venous blood specimen / Unknown Venipuncture / Unknown 05/09/2025 1:41 PM EST 05/09/2025 1:50 PM EST us Mecca Barrios MD LAB BLOOD BANK TEST ORDERABL ES Final Result [facility] [address] [place] [address], [place] [phone] * Prepare RBC: 1 Units, Leukoreduced (05/09/2025 1:28 PM EST) Product Code [id number] 05/09/2025 3:57 PM [facility] Unit Number [id number] 05/09/20 3:57 PM [facility] Crossmatch Compatible 05/09/2025 3:09 PM [facility] Dispense Status Transfused 05/09/2025 3:57 PM [facility] Unit ABO Rh ONEG 05/09/2025 3:57 PM [facility] Unit Expiration Date Time [id number] 05/09/2025 3:57 PM [facility] Unit Blood Type 9500 05/09/2025 3:57 PM [facility] Blood Venous blood specimen / Unknown 05/09/2025 1:28 PM EST 05/09/2025 1:50 PM EST us Mecca Barrios MD BLOOD BANK PRODUCT ORDERABLE S Final Result Performing Organization Address City/[facility]/ZIP Co de Phone Number [facility] [address] [place] [address], [place] [phone] * POCT Glucose, blood (05/09/2025 7:56 AM EST) [facility] Glucose POCT 88 70 - 100 mg/dL 05/09/2025 7:56 AM EST [facility] Blood Capillary blood specimen / Unknown 05/09/2025 7:56 AM EST 05/09/2025 7:58 AM EST us Mecca Barrios MD LAB POINT OF CARE TE ST DOCKED DEVICE UNSOLICITED RESULTS Final Result Performing Organization Address City/[facility]/ZIP Co de Phone Number [facility] [address] [place] [address], [place] [phone] * (ABNORMAL) CBC auto differential (05/09/2025 6:51 AM EST) [facility] WBC 7.8 4.8 - 10.8 K/mcL LAB HEMETOLOGY METHOD 05/09/2025 7:55 AM [facility] RBC 2.80(L) 3.80 - 4.80 M/mcL LAB HEMETOLOGY METHOD 05/09/2025 7:55 AM [facility] Hemoglobin 8.2(L) 11.5 - 16.0 g/dL LAB HEMETOLOGY METHOD 05/09/2025 7:55 AM [facility] Hematocrit 26.3(L) 35.0 - 47.0 % LAB HEMETOLOGY METHOD 05/09/2025 7:55 AM [facility] MCV 93.9 79.0 - 98.0 FL LAB HEMETOLOGY METHOD 05/09/2025 7:55 AM [facility] MCH 29.3 27.0 - 32.0 pcg LAB HEMETOLOGY METHOD 05/09/2025 7:55 AM [facility] MCHC 31.2(L) 32.0 - 37.0 g/dL LAB HEMETOLOGY METHOD 05/09/2025 7:55 AM [facility] RDW 18.2(H) 11.0 - 15.0 % LAB HEMETOLOGY METHOD 05/09/2025 7:55 AM [facility] Platelets 305 130 - 400 K/[facility] LAB HEMETOLOGY METHOD 05/09/2025 7:55 AM [facility] MPV 9.4 7.0 - 11.0 FL LAB HEMETOLOGY METHOD 05/09/2025 7:55 AM [facility] NRBC 0.0 <1.0 % LAB HEMETOLOGY METHOD 05/09/2025 7:55 AM [facility] NRBC Absolute 0.00 <0.10 K/mcL LAB HEMETOLOGY METHOD 05/09/2025 7:55 AM [facility] Neutrophils Relative 67.2 % LAB HEMETOLOGY METHOD 05/09/2025 7:55 AM [facility] Lymphocytes Relative 14.1 % LAB HEMETOLOGY METHOD 05/09/2025 7:55 AM [facility] Monocytes Relative 13.3 % LAB HEMETOLOGY METHOD 05/09/2025 7:55 AM [facility] Eosinophils Relative 4.0 % LAB HEMETOLOGY METHOD 05/09/2025 7:55 AM [facility] Basophils Relative 0.6 % LAB HEMETOLOGY METHOD 05/09/2025 7:55 AM [facility] Immature Granulocytes Relative 0.8 % LAB HEMETOLOGY METHOD 05/09/2025 7:55 AM [facility] Neutrophils Absolute 5.25 1.50 - 7.00 K/mcL LAB HEMETOLOGY METHOD 05/09/2025 7:55 AM [facility] Lymphocytes Absolute 1.10 1.00 - 5.00 K/mcL LAB HEMETOLOGY METHOD 05/09/2025 7:55 AM [facility] Monocytes Absolute 1.04(H) 0.20 - 1.00 K/mcL LAB HEMETOLOGY METHOD 05/09/2025 7:55 AM [facility] Eosinophils Absolute 0.31 0.00 - 0.50 K/mcL LAB HEMETOLOGY METHOD 05/09/2025 7:55 AM [facility] Basophils Absolute 0.05 0.00 - 0.20 K/mcL LAB HEMETOLOGY METHOD 05/09/2025 7:55 AM [facility] Immature Granulocytes Absolute 0.06(H) 0.00 - 0.03 K/mcL LAB HEMETOLOGY METHOD 05/09/2025 7:55 AM [facility] Blood Venous blood specimen / Unknown Venipuncture / Unknown 05/09/2025 6:51 AM EST 05/09/2025 7:27 AM EST us Adelina SUMNER LAB BLOOD ORDERABLES Final R esult Performing Organization Address City/[facility]/ZIP Co de Phone Number [facility] [address] [place] [address], [place] [phone] * SST tube (05/09/2025 6:48 AM EST) [facility] Extra Tube Hold for add-ons. 05/09/2025 9:01 AM EST [facility] Comment:Auto resulted. Blood Venous blood specimen / Unknown 05/09/2025 6:48 AM EST 05/09/2025 7:30 AM EST Mecca Barrios MD LAB BLOOD ORDERABLES Final R esult Performing Organization Address City/[facility]/ZIP Co de Phone Number [facility] [address] [place] [address], [place] [phone] * (ABNORMAL) CBC auto differential (05/08/2025 7:01 AM EST) [facility] WBC 8.6 4.8 - 10.8 K/mcL LAB HEMETOLOGY METHOD 05/08/2025 8:15 AM [facility] RBC 2.90(L) 3.80 - 4.80 M/[facility] LAB HEMETOLOGY METHOD 05/08/2025 8:15 AM [facility] Hemoglobin 8.7(L) 11.5 - 16.0 g/dL LAB HEMETOLOGY METHOD 05/08/2025 8:15 AM [facility] Hematocrit 26.5(L) 35.0 - 47.0 % LAB HEMETOLOGY METHOD 05/08/2025 8:15 AM [facility] MCV 91.4 79.0 - 98.0 FL LAB HEMETOLOGY METHOD 05/08/2025 8:15 AM [facility] MCH 30.0 27.0 - 32.0 pcg LAB HEMETOLOGY METHOD 05/08/2025 8:15 AM [facility] MCHC 32.8 32.0 - 37.0 g/dL LAB HEMETOLOGY METHOD 05/08/2025 8:15 AM [facility] RDW 18.9(H) 11.0 - 15.0 % LAB HEMETOLOGY METHOD 05/08/2025 8:15 AM [facility] Platelets 296 130 - 400 K/mcL LAB HEMETOLOGY METHOD 05/08/2025 8:15 AM [facility] MPV 9.6 7.0 - 11.0 FL LAB HEMETOLOGY METHOD 05/08/2025 8:15 AM [facility] NRBC 0.0 <1.0 % LAB HEMETOLOGY METHOD 05/08/2025 8:15 AM [facility] NRBC Absolute 0.00 <0.10 K/mcL LAB HEMETOLOGY METHOD 05/08/2025 8:15 AM [facility] Neutrophils Relative 69.0 % LAB HEMETOLOGY METHOD 05/08/2025 8:15 AM [facility] Lymphocytes Relative 13.3 % LAB HEMETOLOGY METHOD 05/08/2025 8:15 AM [facility] Monocytes Relative 13.3 % LAB HEMETOLOGY METHOD 05/08/2025 8:15 AM [facility] Eosinophils Relative 2.9 % LAB HEMETOLOGY METHOD 05/08/2025 8:15 AM [facility] Basophils Relative 0.3 % LAB HEMETOLOGY METHOD 05/08/2025 8:15 AM [facility] Immature Granulocytes Relative 1.2 % LAB HEMETOLOGY METHOD 05/08/2025 8:15 AM [facility] Neutrophils Absolute 5.95 1.50 - 7.00 K/mcL LAB HEMETOLOGY METHOD 05/08/2025 8:15 AM EST [facility] Lymphocytes Absolute 1.15 1.00 - 5.00 K/mcL LAB HEMETOLOGY METHOD 05/08/2025 8:15 AM [facility] Monocytes Absolute 1.15(H) 0.20 - 1.00 K/mcL LAB HEMETOLOGY METHOD 05/08/2025 8:15 AM EST [facility] Eosinophils Absolute 0.25 0.00 - 0.50 K/mcL LAB HEMETOLOGY METHOD 05/08/2025 8:15 AM [facility] Basophils Absolute 0.03 0.00 - 0.20 K/mcL LAB HEMETOLOGY METHOD 05/08/2025 8:15 AM [facility] Immature Granulocytes Absolute 0.10(H) 0.00 - 0.03 K/mcL LAB HEMETOLOGY METHOD 05/08/2025 8:15 AM [facility] Blood Venous blood specimen / Unknown Venipuncture / Unknown 05/08/2025 7:01 AM EST 05/08/2025 7:57 AM EST Estate Sophie SOLITARIO LAB BLOOD ORDERABLES Final R esult [facility] [address] [place] [address], * (ABNORMAL) Basic metabolic panel (05/08/2025 7:01 AM EST) Sodium 140 133 - 145 mmol/L LAB CHEMISTRY METHOD 05/08/2025 8:20 AM [facility] Potassium 4.3 3.5 - 5.5 mmol/L LAB CHEMISTRY METHOD 05/08/2025 8:20 AM [facility] Chloride 105 96 - 110 mmol/L LAB CHEMISTRY METHOD 05/08/2025 8:20 AM [facility] CO2 30 21 - 32 mmol/L LAB CHEMISTRY METHOD 05/08/2025 8:20 AM [facility] Anion Gap 5 3 - 11 LAB CHEMISTRY METHOD 05/08/2025 8:20 AM [facility] Glucose 95 70 - 100 mg/dL LAB CHEMISTRY METHOD 05/08/2025 8:20 AM [facility] BUN 26(H) 5 - 25 mg/dL LAB CHEMISTRY METHOD 05/08/2025 8:20 AM [facility] Creatinine 0.56 0.50 - 1.10 mg/dL LAB CHEMISTRY METHOD 05/08/2025 8:20 AM [facility] LAB eGFR 91 >=60 mL/min/1. 73m2 LAB CHEMISTRY METHOD 05/08/2025 8:20 AM [facility] LAB Comment:Calculation based on the Chronic Kidney Disease Epidemiology Collaboration (CKD-EPI) equation refit without adjustment for race. BUN/Creatinine Ratio 46.4 LAB CHEMISTRY METHOD 05/08/2025 8:20 AM [facility] Calcium 8.1(L) 8.5 - 10.5 mg/dL LAB CHEMISTRY METHOD 05/08/2025 8:20 AM [facility] Blood Venous blood specimen / Unknown Venipuncture / Unknown 05/08/2025 7:01 AM EST 05/08/2025 7:57 AM EST Mecca Barrios MD LAB BLOOD ORDERABLES Final R esult [facility] [address] [place] [address], * Transfuse RBC, Leukoreduced (05/07/2025 3:19 PM EST) us Mecca Barrios MD BLOOD TRANSFUSION ORDERABLES Final Result * Transfuse RBC: 1 Units, Leukoreduced (05/07/2025 3:19 PM EST) Mecca Barrios MD BLOOD TRANSFUSION ORDERABLES Final Result * Prepare RBC: 1 Units, Leukoreduced (05/07/2025 9:11 AM EST) Product Code [id number] 05/07/2025 10:19 AM [facility] Unit Number [id number] 05/07/20 10:19 AM [facility] Crossmatch Compatible 05/07/2025 9:19 AM [facility] Dispense Status Transfused 05/07/2025 10:19 AM [facility] Unit ABO Rh OPOS 05/07/2025 10:19 AM [facility] Unit Expiration Date Time 05/07/2025 10:19 AM [facility] Unit Blood Type 5100 05/07/2025 10:19 AM [facility] Blood Venous blood specimen / Unknown 05/07/2025 9:11 AM EST 05/04/2025 3:37 PM EST Mecca Barrios MD BLOOD BANK PRODUCT ORDERABLE S Final Result [facility] [address] [place] [address], * (ABNORMAL) CBC auto differential (05/07/2025 6:35 AM EST) WBC 10.6 4.8 - 10.8 K/[facility] LAB HEMETOLOGY METHOD 05/07/2025 7:13 AM [facility] RBC 2.20(L) 3.80 - 4.80 M/[facility] LAB HEMETOLOGY METHOD 05/07/2025 7:13 AM [facility] Hemoglobin 6.7(L) 11.5 - 16.0 g/dL LAB HEMETOLOGY METHOD 05/07/2025 7:13 AM [facility] Hematocrit 20.1(L) 35.0 - 47.0 % LAB HEMETOLOGY METHOD 05/07/2025 7:13 AM [facility] MCV 92.6 79.0 - 98.0 FL LAB HEMETOLOGY METHOD 05/07/2025 7:13 AM [facility] MCH 30.9 27.0 - 32.0 pcg LAB HEMETOLOGY METHOD 05/07/2025 7:13 AM [facility] MCHC 33.3 32.0 - 37.0 g/dL LAB HEMETOLOGY METHOD 05/07/2025 7:13 AM [facility] RDW 17.9(H) 11.0 - 15.0 % LAB HEMETOLOGY METHOD 05/07/2025 7:13 AM [facility] Platelets 241 130 - 400 K/mcL LAB HEMETOLOGY METHOD 05/07/2025 7:13 AM [facility] MPV 10.0 7.0 - 11.0 FL LAB HEMETOLOGY METHOD 05/07/2025 7:13 AM [facility] NRBC 0.0 <1.0 % LAB HEMETOLOGY METHOD 05/07/2025 7:13 AM [facility] NRBC Absolute 0.00 <0.10 K/mcL LAB HEMETOLOGY METHOD 05/07/2025 7:13 AM [facility] Neutrophils Relative 71.2 % LAB HEMETOLOGY METHOD 05/07/2025 7:13 AM [facility] Lymphocytes Relative 10.8 % LAB HEMETOLOGY METHOD 05/07/2025 7:13 AM [facility] Monocytes Relative 15.7 % LAB HEMETOLOGY METHOD 05/07/2025 7:13 AM [facility] Eosinophils Relative 1.4 % LAB HEMETOLOGY METHOD 05/07/2025 7:13 AM [facility] Basophils Relative 0.2 % LAB HEMETOLOGY METHOD 05/07/2025 7:13 AM [facility] Immature Granulocytes Relative 0.7 % LAB HEMETOLOGY METHOD 05/07/2025 7:13 AM [facility] Neutrophils Absolute 7.53(H) 1.50 - 7.00 K/mcL LAB HEMETOLOGY METHOD 05/07/2025 7:13 AM [facility] Lymphocytes Absolute 1.14 1.00 - 5.00 K/mcL LAB HEMETOLOGY METHOD 05/07/2025 7:13 AM [facility] Monocytes Absolute 1.66(H) 0.20 - 1.00 K/mcL LAB HEMETOLOGY METHOD 05/07/2025 7:13 AM EST [facility] Eosinophils Absolute 0.15 0.00 - 0.50 K/mcL LAB HEMETOLOGY METHOD 05/07/2025 7:13 AM [facility] Basophils Absolute 0.02 0.00 - 0.20 K/mcL LAB HEMETOLOGY METHOD 05/07/2025 7:13 AM [facility] Immature Granulocytes Absolute 0.07(H) 0.00 - 0.03 K/mcL LAB HEMETOLOGY METHOD 05/07/2025 7:13 AM [facility] Blood Venous blood specimen / Unknown Venipuncture / Unknown 05/07/2025 6:35 AM EST 05/07/2025 6:58 AM EST us Estate Sophie SOLITARIO LAB BLOOD ORDERABLES Final R esult [facility] [address], [place] [address] [phone] * (ABNORMAL) Basic metabolic panel (05/07/2025 6:34 AM EST) Sodium 139 133 - 145 mmol/L LAB CHEMISTRY METHOD 05/07/2025 7:44 AM [facility] Potassium 3.7 3.5 - 5.5 mmol/L LAB CHEMISTRY METHOD 05/07/2025 7:44 AM [facility] Chloride 104 96 - 110 mmol/L LAB CHEMISTRY METHOD 05/07/2025 7:44 AM [facility] CO2 30 21 - 32 mmol/L LAB CHEMISTRY METHOD 05/07/2025 7:44 AM [facility] Anion Gap 5 3 - 11 LAB CHEMISTRY METHOD 05/07/2025 7:44 AM [facility] Glucose 106(H) 70 - 100 mg/dL LAB CHEMISTRY METHOD 05/07/2025 7:44 AM [facility] BUN 22 5 - 25 mg/dL LAB CHEMISTRY METHOD 05/07/2025 7:44 AM [facility] Creatinine 0.71 0.50 - 1.10 mg/dL LAB CHEMISTRY METHOD 05/07/2025 7:44 AM [facility] eGFR 85 >=60 mL/min/1. 73m2 LAB CHEMISTRY METHOD 05/07/2025 7:44 AM [facility] Comment:Calculation based on the Chronic Kidney Disease Epidemiology Collaboration (CKD-EPI) equation refit without adjustment for race. BUN/Creatinine Ratio 31.0 LAB CHEMISTRY METHOD 05/07/2025 7:44 AM [facility] Calcium 8.4(L) 8.5 - 10.5 mg/dL LAB CHEMISTRY METHOD 05/07/2025 7:44 AM [facility] Blood Venous blood specimen / Unknown Venipuncture / Unknown 05/07/2025 6:34 AM EST 05/07/2025 6:59 AM EST us Mecca Barrios MD LAB BLOOD ORDERABLES Final R esult [facility] [address] [place] [address], [place] [phone] * Transfuse RBC: 1 Units, Leukoreduced (05/06/2025 12:43 PM EST) us Mecca Barrios MD BLOOD TRANSFUSION ORDERABLES Final Result * Transfuse RBC, Leukoreduced (05/06/2025 12:43 PM EST) Mecca Barrios MD BLOOD TRANSFUSION ORDERABLES Final Result * Prepare RBC: 1 Units, Leukoreduced (05/06/2025 8:34 AM EST) Product Code [id number] 05/06/2025 9:31 AM [facility] Unit Number [id number] 05/06/20 9:31 AM [facility] Crossmatch Compatible 05/06/2025 8:38 AM [facility] Dispense Status Issued 05/06/2025 9:31 AM [facility] Unit ABO Rh OPOS 05/06/2025 9:31 AM [facility] Unit Expiration Date Time [id number] 05/06/2025 9:31 AM [facility] Unit Blood Type 5100 05/06/2025 9:31 AM [facility] Blood Venous blood specimen / Unknown 05/06/2025 8:34 AM EST 05/04/2025 3:37 PM EST us Mecca Barrios MD BLOOD BANK PRODUCT ORDERABLE S Final Result [facility] [address] [place] [address], [place] [phone] * (ABNORMAL) Basic metabolic panel (05/06/2025 6:22 AM EST) Sodium 139 133 - 145 mmol/L LAB CHEMISTRY METHOD 05/06/2025 7:54 AM [facility] Potassium 4.6 3.5 - 5.5 mmol/L LAB CHEMISTRY METHOD 05/06/2025 7:54 AM [facility] Chloride 103 96 - 110 mmol/L LAB CHEMISTRY METHOD 05/06/2025 7:54 AM [facility] CO2 29 21 - 32 mmol/L LAB CHEMISTRY METHOD 05/06/2025 7:54 AM [facility] Anion Gap 7 3 - 11 LAB CHEMISTRY METHOD 05/06/2025 7:54 AM [facility] Glucose 142(H) 70 - 100 mg/dL LAB CHEMISTRY METHOD 05/06/2025 7:54 AM [facility] BUN 23 5 - 25 mg/dL LAB CHEMISTRY METHOD 05/06/2025 7:54 AM [facility] Creatinine 0.80 0.50 - 1.10 mg/dL LAB CHEMISTRY METHOD 05/06/2025 7:54 AM [facility] eGFR 74 >=60 mL/min/1. 73m2 LAB CHEMISTRY METHOD 05/06/2025 7:54 AM [facility] Comment:Calculation based on the Chronic Kidney Disease Epidemiology Collaboration (CKD-EPI) equation refit without adjustment for race. BUN/Creatinine Ratio 28.8 LAB CHEMISTRY METHOD 05/06/2025 7:54 AM [facility] Calcium 8.7 8.5 - 10.5 mg/dL LAB CHEMISTRY METHOD 05/06/2025 7:54 AM [facility] Blood Venous blood specimen / Unknown Venipuncture / Unknown 05/06/2025 6:22 AM EST 05/06/2025 6:49 AM EST us Sindi SUMNER LAB BLOOD ORDERABLES Final Resul t [facility] [address] [place] [address], * (ABNORMAL) Complete blood count (05/06/2025 6:22 AM EST) WBC 10.0 4.8 - 10.8 K/mcL LAB HEMETOLOGY METHOD 05/06/2025 7:39 AM [facility] RBC 2.20(L) 3.80 - 4.80 M/mcL LAB HEMETOLOGY METHOD 05/06/2025 7:39 AM [facility] Hemoglobin 6.8(L) 11.5 - 16.0 g/dL LAB HEMETOLOGY METHOD 05/06/2025 7:39 AM [facility] Hematocrit 22.2(L) 35.0 - 47.0 % LAB HEMETOLOGY METHOD 05/06/2025 7:39 AM [facility] MCV 99.1(H) 79.0 - 98.0 FL LAB HEMETOLOGY METHOD 05/06/2025 7:39 AM [facility] MCH 30.4 27.0 - 32.0 pcg LAB HEMETOLOGY METHOD 05/06/2025 7:39 AM [facility] MCHC 30.6(L) 32.0 - 37.0 g/dL LAB HEMETOLOGY METHOD 05/06/2025 7:39 AM [facility] RDW 16.3(H) 11.0 - 15.0 % LAB HEMETOLOGY METHOD 05/06/2025 7:39 AM [facility] Platelets 304 130 - 400 K/mcL LAB HEMETOLOGY METHOD 05/06/2025 7:39 AM [facility] MPV 9.1 7.0 - 11.0 FL LAB HEMETOLOGY METHOD 05/06/2025 7:39 AM EST [facility] NRBC 0.0 <1.0 % LAB HEMETOLOGY METHOD 05/06/2025 7:39 AM EST [facility] NRBC Absolute 0.00 <0.10 K/mcL LAB HEMETOLOGY METHOD 05/06/2025 7:39 AM EST [facility] Blood Venous blood specimen / Unknown Venipuncture / Unknown 05/06/2025 6:22 AM EST 05/06/2025 6:49 AM EST us Sindi SUMNER LAB BLOOD ORDERABLES Final Resul t [facility] [address] [place] [address], [place] [phone] * XR Femur 2+ Views Right (05/05/2025 [...] Signed Date: 05/06/2025 07:48 ET Workstation ID: [id number] Transcribed By: Self Edit Transcribed Date: 05/06/2025 [...] Signed Date: 05/06/2025 07:48 ET Workstation ID: [id number] Transcribed By: Self Edit Transcribed Date: 05/06/2025 07:45 ET us Brian Baeza MD IMG XR PROCEDURES Final Resul t * (ABNORMAL) CBC auto differential (05/05/2025 6:15 AM EST) [facility] WBC 7.1 4.8 - 10.8 /[facility] LAB HEMETOLOGY METHOD 05/05/2025 8:02 AM EST [facility] RBC 2.90(L) 3.80 - 4.80 M/mcL LAB HEMETOLOGY METHOD 05/05/2025 8:02 AM [facility] Hemoglobin 8.8(L) 11.5 - 16.0 g/dL LAB HEMETOLOGY METHOD 05/05/2025 8:02 AM [facility] Hematocrit 28.7(L) 35.0 - 47.0 % LAB HEMETOLOGY METHOD 05/05/2025 8:02 AM [facility] MCV 98.3(H) 79.0 - 98.0 FL LAB HEMETOLOGY METHOD 05/05/2025 8:02 AM [facility] MCH 30.1 27.0 - 32.0 pcg LAB HEMETOLOGY METHOD 05/05/2025 8:02 AM [facility] MCHC 30.7(L) 32.0 - 37.0 g/dL LAB HEMETOLOGY METHOD 05/05/2025 8:02 AM [facility] RDW 16.8(H) 11.0 - 15.0 % LAB HEMETOLOGY METHOD 05/05/2025 8:02 AM [facility] Platelets 299 130 - 400 K/mcL LAB HEMETOLOGY METHOD 05/05/2025 8:02 AM [facility] MPV 9.6 7.0 - 11.0 FL LAB HEMETOLOGY METHOD 05/05/2025 8:02 AM [facility] NRBC 0.0 <1.0 % LAB HEMETOLOGY METHOD 05/05/2025 8:02 AM [facility] NRBC Absolute 0.00 <0.10 K/mcL LAB HEMETOLOGY METHOD 05/05/2025 8:02 AM [facility] Neutrophils Relative 62.8 % LAB HEMETOLOGY METHOD 05/05/2025 8:02 AM [facility] Lymphocytes Relative 15.9 % LAB HEMETOLOGY METHOD 05/05/2025 8:02 AM [facility] Monocytes Relative 14.5 % LAB HEMETOLOGY METHOD 05/05/2025 8:02 AM [facility] Eosinophils Relative 5.9 % LAB HEMETOLOGY METHOD 05/05/2025 8:02 AM [facility] Basophils Relative 0.6 % LAB HEMETOLOGY METHOD 05/05/2025 8:02 AM [facility] Immature Granulocytes Relative 0.3 % LAB HEMETOLOGY METHOD 05/05/2025 8:02 AM [facility] Neutrophils Absolute 4.48 1.50 - 7.00 K/mcL LAB HEMETOLOGY METHOD 05/05/2025 8:02 AM [facility] Lymphocytes Absolute 1.13 1.00 - 5.00 K/mcL LAB HEMETOLOGY METHOD 05/05/2025 8:02 AM [facility] Monocytes Absolute 1.03(H) 0.20 - 1.00 K/mcL LAB HEMETOLOGY METHOD 05/05/2025 8:02 AM [facility] Eosinophils Absolute 0.42 0.00 - 0.50 K/mcL LAB HEMETOLOGY METHOD 05/05/2025 8:02 AM [facility] Basophils Absolute 0.04 0.00 - 0.20 K/mcL LAB HEMETOLOGY METHOD 05/05/2025 8:02 AM [facility] Immature Granulocytes Absolute 0.02 0.00 - 0.03 K/mcL LAB HEMETOLOGY METHOD 05/05/2025 8:02 AM [facility] Blood Venous blood specimen / Unknown Venipuncture / Unknown 05/05/2025 6:15 AM EST 05/05/2025 7:45 AM EST Estate Sophie SOLITARIO LAB BLOOD ORDERABLES Final R esult [facility] [address] [place] [address], * (ABNORMAL) Basic metabolic panel (05/05/2025 6:15 AM EST) Sodium 141 133 - 145 mmol/L LAB CHEMISTRY METHOD 05/05/2025 8:27 AM [facility] Potassium 4.3 3.5 - 5.5 mmol/L LAB CHEMISTRY METHOD 05/05/2025 8:27 AM [facility] Chloride 107 96 - 110 mmol/L LAB CHEMISTRY METHOD 05/05/2025 8:27 AM [facility] CO2 31 21 - 32 mmol/L LAB CHEMISTRY METHOD 05/05/2025 8:27 AM [facility] Anion Gap 3 3 - 11 LAB CHEMISTRY METHOD 05/05/2025 8:27 AM [facility] Glucose 85 70 - 100 mg/dL LAB CHEMISTRY METHOD 05/05/2025 8:27 AM [facility] BUN 20 5 - 25 mg/dL LAB CHEMISTRY METHOD 05/05/2025 8:27 AM [facility] Creatinine 0.71 0.50 - 1.10 mg/dL LAB CHEMISTRY METHOD 05/05/2025 8:27 AM [facility] eGFR 85 >=60 mL/min/1. 73m2 LAB CHEMISTRY METHOD 05/05/2025 8:27 AM [facility] Comment:Calculation based on the Chronic Kidney Disease Epidemiology Collaboration (CKD-EPI) equation refit without adjustment for race. BUN/Creatinine Ratio 28.2 LAB CHEMISTRY METHOD 05/05/2025 8:27 AM [facility] Calcium 8.1(L) 8.5 - 10.5 mg/dL LAB CHEMISTRY METHOD 05/05/2025 8:27 AM [facility] Blood Venous blood specimen / Unknown Venipuncture / Unknown 05/05/2025 6:15 AM EST 05/05/2025 7:45 AM EST Sindi SUMNER LAB BLOOD ORDERABLES Final Resul t Performing Organization Address [facility]/ZIP Co de Phone Number [facility] [address] [place] [address], [place] [phone] * Type and screen (05/04/2025 3:25 PM EST) ABO Group O 05/04/2025 6:00 PM EST [facility] Rh Type Positive 05/04/2025 6:00 PM EST [facility] Antibody Screen Negative 05/04/2025 6:00 PM EST [facility] Blood Venous blood specimen / Unknown Venipuncture / Unknown 05/04/2025 3:25 PM EST 05/04/2025 3:37 PM EST Sindi SUMNER LAB BLOOD BANK TEST ORDERABLES F inal Result [facility] [address] [place] [address], [place] [phone] * Prepare RBC: 2 Units, Leukoreduced (05/04/2025 2:56 PM EST) Product Code [id number] 05/04/2025 3:22 PM EST [facility] Unit Number [id number] 05/04/20 3:22 PM EST [facility] Crossmatch Compatible 05/04/2025 3:06 PM EST [facility] Dispense Status Released From Crossmatch 05/04/2025 3:22 PM EST [facility] Unit ABO Rh OPOS 05/04/2025 3:22 PM EST [facility] Unit Expiration Date Time 05/04/2025 3:22 PM [facility] Unit Blood Type 5100 05/04/2025 3:22 PM [facility] Product Code [id number] 05/04/2025 3:22 PM [facility] Unit Number [id number] 05/04/20 3:22 PM [facility] Crossmatch Compatible 05/04/2025 3:06 PM [facility] Dispense Status Transfused 05/04/2025 3:22 PM [facility] Unit ABO Rh OPOS 05/04/2025 3:22 PM [facility] Unit Expiration Date Time [id number] 05/04/2025 3:22 PM [facility] Unit Blood Type 5100 05/04/2025 3:22 PM [facility] Blood Venous blood specimen / Unknown 05/04/2025 2:56 PM EST 05/01/2025 4:43 PM EST Sindi SUMNER BLOOD BANK PRODUCT ORDERABLES Fi nal Result [facility] [address] [place] [address], * (ABNORMAL) CBC auto differential (05/04/2025 7:00 AM EST) WBC 7.4 4.8 - 10.8 K/mcL LAB HEMETOLOGY METHOD 05/04/2025 7:37 AM [facility] RBC 2.70(L) 3.80 - 4.80 M/mcL LAB HEMETOLOGY METHOD 05/04/2025 7:37 AM [facility] Hemoglobin 8.4(L) 11.5 - 16.0 g/dL LAB HEMETOLOGY METHOD 05/04/2025 7:37 AM [facility] Hematocrit 26.1(L) 35.0 - 47.0 % LAB HEMETOLOGY METHOD 05/04/2025 7:37 AM [facility] MCV 96.3 79.0 - 98.0 FL LAB HEMETOLOGY METHOD 05/04/2025 7:37 AM [facility] MCH 31.0 27.0 - 32.0 pcg LAB HEMETOLOGY METHOD 05/04/2025 7:37 AM [facility] MCHC 32.2 32.0 - 37.0 g/dL LAB HEMETOLOGY METHOD 05/04/2025 7:37 AM [facility] RDW 16.8(H) 11.0 - 15.0 % LAB HEMETOLOGY METHOD 05/04/2025 7:37 AM [facility] Platelets 280 130 - 400 K/mcL LAB HEMETOLOGY METHOD 05/04/2025 7:37 AM [facility] MPV 8.9 7.0 - 11.0 FL LAB HEMETOLOGY METHOD 05/04/2025 7:37 AM [facility] NRBC 0.0 <1.0 % LAB HEMETOLOGY METHOD 05/04/2025 7:37 AM [facility] NRBC Absolute 0.00 <0.10 K/mcL LAB HEMETOLOGY METHOD 05/04/2025 7:37 AM [facility] Neutrophils Relative 67.6 % LAB HEMETOLOGY METHOD 05/04/2025 7:37 AM [facility] Lymphocytes Relative 13.4 % LAB HEMETOLOGY METHOD 05/04/2025 7:37 AM [facility] Monocytes Relative 14.8 % LAB HEMETOLOGY METHOD 05/04/2025 7:37 AM [facility] Eosinophils Relative 3.4 % LAB HEMETOLOGY METHOD 05/04/2025 7:37 AM EST [facility] Basophils Relative 0.4 % LAB HEMETOLOGY METHOD 05/04/2025 7:37 AM [facility] Immature Granulocytes Relative 0.4 % LAB HEMETOLOGY METHOD 05/04/2025 7:37 AM [facility] Neutrophils Absolute 5.01 1.50 - 7.00 K/mcL LAB HEMETOLOGY METHOD 05/04/2025 7:37 AM EST [facility] Lymphocytes Absolute 0.99(L) 1.00 - 5.00 K/mcL LAB HEMETOLOGY METHOD 05/04/2025 7:37 AM [facility] Monocytes Absolute 1.10(H) 0.20 - 1.00 K/mcL LAB HEMETOLOGY METHOD 05/04/2025 7:37 AM EST [facility] Eosinophils Absolute 0.25 0.00 - 0.50 K/mcL LAB HEMETOLOGY METHOD 05/04/2025 7:37 AM EST [facility] Basophils Absolute 0.03 0.00 - 0.20 K/mcL LAB HEMETOLOGY METHOD 05/04/2025 7:37 AM [facility] Immature Granulocytes Absolute 0.03 0.00 - 0.03 K/mcL LAB HEMETOLOGY METHOD 05/04/2025 7:37 AM [facility] Blood Venous blood specimen / Unknown Venipuncture / Unknown 05/04/2025 7:00 AM EST 05/04/2025 7:15 AM EST us Kitty Castellanos MD LAB BLOOD ORDERABLES Final Resu lt [facility] [address] [place] [address], * Prothrombin time with INR (05/04/2025 7:00 AM EST) Protime 13.8 10.6 - 13.9 sec LAB COAGULATION METHOD 05/04/2025 7:34 AM EST [facility] INR 1.1 LAB COAGULATION METHOD 05/04/2025 7:34 AM EST [facility] Blood Venous blood specimen / Unknown Venipuncture / Unknown 05/04/2025 7:00 AM EST 05/04/2025 7:15 AM EST us Kitty Castellanos MD LAB BLOOD ORDERABLES Final Resu lt [facility] [address] [place] [address], [place] [phone] * Phosphorus (05/04/2025 7:00 AM EST) Phosphorus 3.5 2.5 - 4.5 mg/dL LAB CHEMISTRY METHOD 05/04/2025 7:55 AM EST [facility] Blood Venous blood specimen / Unknown Venipuncture / Unknown 05/04/2025 7:00 AM EST 05/04/2025 7:15 AM EST us Kitty Castellanos MD LAB BLOOD ORDERABLES Final Resu lt [facility] [address] [place] [address], [place] [phone] * Magnesium (05/04/2025 7:00 AM EST) Magnesium 1.9 1.9 - 2.6 mg/dL LAB CHEMISTRY METHOD 05/04/2025 7:55 AM EST [facility] Blood Venous blood specimen / Unknown Venipuncture / Unknown 05/04/2025 7:00 AM EST 05/04/2025 7:15 AM EST us Kitty Castellanos MD LAB BLOOD ORDERABLES Final Resu lt [facility] [address] [place] [address], * (ABNORMAL) Comprehensive metabolic panel (05/04/2025 7:00 AM EST) Sodium 140 133 - 145 mmol/L LAB CHEMISTRY METHOD 05/04/2025 8:01 AM [facility] Potassium 3.8 3.5 - 5.5 mmol/L LAB CHEMISTRY METHOD 05/04/2025 8:01 AM [facility] Chloride 106 96 - 110 mmol/L LAB CHEMISTRY METHOD 05/04/2025 8:01 AM [facility] CO2 30 21 - 32 mmol/L LAB CHEMISTRY METHOD 05/04/2025 8:01 AM [facility] Anion Gap 4 3 - 11 LAB CHEMISTRY METHOD 05/04/2025 8:01 AM [facility] Glucose 92 70 - 100 mg/dL LAB CHEMISTRY METHOD 05/04/2025 8:01 AM [facility] BUN 14 5 - 25 mg/dL LAB CHEMISTRY METHOD 05/04/2025 8:01 AM [facility] Creatinine 0.60 0.50 - 1.10 mg/dL LAB CHEMISTRY METHOD 05/04/2025 8:01 AM [facility] eGFR 90 >=60 mL/min/1. 73m2 LAB CHEMISTRY METHOD 05/04/2025 8:01 AM [facility] Comment:Calculation based on the Chronic Kidney Disease Epidemiology Collaboration (CKD-EPI) equation refit without adjustment for race. BUN/Creatinine Ratio 23.3 LAB CHEMISTRY METHOD 05/04/2025 8:01 AM [facility] Calcium 8.5 8.5 - 10.5 mg/dL LAB CHEMISTRY METHOD 05/04/2025 8:01 AM [facility] AST (SGOT) 13 10 - 42 unit/L LAB CHEMISTRY METHOD 05/04/2025 8:01 AM [facility] ALT (SGPT) 15 10 - 60 unit/L LAB CHEMISTRY METHOD 05/04/2025 8:01 AM [facility] Alkaline Phosphatase 77 42 - 121 unit/L LAB CHEMISTRY METHOD 05/04/2025 8:01 AM [facility] Total Protein 5.2(L) 6.0 - 8.0 g/dL LAB CHEMISTRY METHOD 05/04/2025 8:01 AM [facility] Albumin 2.5(L) 3.2 - 5.0 g/dL LAB CHEMISTRY METHOD 05/04/2025 8:01 AM [facility] Total Bilirubin 0.7 0.0 - 1.4 mg/dL LAB CHEMISTRY METHOD 05/04/2025 8:01 AM [facility] Blood Venous blood specimen / Unknown Venipuncture / Unknown 05/04/2025 7:00 AM EST 05/04/2025 7:15 AM EST us Kitty Castellanos MD LAB BLOOD ORDERABLES Final Resu lt Performing Organization Address City/[facility]/ZIP Co de Phone Number [facility] [address] [place] [address], * SST tube (05/03/2025 6:48 AM EST) Extra Tube Hold for add-ons. 05/03/2025 9:01 AM [facility] Comment:Auto resulted. Blood Venous blood specimen / Unknown Venipuncture / Unknown 05/03/2025 6:48 AM EST 05/03/2025 7:11 AM EST us Kitty Castellanos MD LAB BLOOD ORDERABLES Final Resu lt [facility] [address] [place] [address], [place] [phone] * (ABNORMAL) Hemoglobin and hematocrit (05/03/2025 6:48 AM EST) Hemoglobin 8.5(L) 11.5 - 16.0 g/dL LAB HEMETOLOGY METHOD 05/03/2025 7:31 AM EST [facility] Hematocrit 27.2(L) 35.0 - 47.0 % LAB HEMETOLOGY METHOD 05/03/2025 7:31 AM EST [facility] Blood Venous blood specimen / Unknown Venipuncture / Unknown 05/03/2025 6:48 AM EST 05/03/2025 7:10 AM EST us Kitty Castellanos MD LAB BLOOD ORDERABLES Final Resu lt Performing Organization Address City/[facility]/ZIP Co de Phone Number [facility] [address] [place] [address], [place] [phone] * (ABNORMAL) Iron and TIBC (05/02/2025 6:48 AM EST) Pathologist [facility] Iron 22(L) 40 - 150 mcg/dL LAB CHEMISTRY METHOD 05/03/2025 1:58 AM EST [facility] TIBC 232(L) 250 - 450 mcg/dL LAB CHEMISTRY METHOD 05/03/2025 1:58 AM EST [facility] Iron Saturation 9(L) 15 - 50 % LAB CHEMISTRY METHOD 05/03/2025 1:58 AM EST [facility] Blood Venous blood specimen / Unknown Venipuncture / Unknown 05/02/2025 6:48 AM EST 05/02/2025 6:53 AM EST us Kitty Castellanos MD LAB BLOOD ORDERABLES Final Resu lt [facility] [address] [place] [address], [place] [phone] * Vitamin B12 (05/02/2025 6:48 AM EST) [facility] Vitamin B-12 434 250 - 900 pcg/mL LAB CHEMISTRY METHOD 05/02/2025 3:55 PM [facility] Blood Venous blood specimen / Unknown Venipuncture / Unknown 05/02/2025 6:48 AM EST 05/02/2025 6:53 AM EST us Kitty Castellanos MD LAB BLOOD ORDERABLES Final Resu lt Performing Organization Address City/[facility]/ZIP Co de Phone Number [facility] [address] [place] [address], [place] [phone] * (ABNORMAL) Vitamin D 25 hydroxy (05/02/2025 6:48 AM EST) [facility] Vit D, 25-Hydroxy 21.9(L) 30.0 - 80.0 ng/mL LAB CHEMISTRY METHOD 05/02/2025 4:07 PM EST [facility] Blood Venous blood specimen / Unknown Venipuncture / Unknown 05/02/2025 6:48 AM EST 05/02/2025 6:53 AM EST us Kitty Castelalnos MD LAB BLOOD ORDERABLES Final Resu lt Performing Organization Address City/[facility]/ZIP Co de Phone Number [facility] [address] [place] [address], [place] [phone] * (ABNORMAL) CBC auto differential (05/02/2025 6:48 AM EST) [facility] WBC 6.3 4.8 - 10.8 K/[facility] LAB HEMETOLOGY METHOD 05/02/2025 7:09 AM [facility] RBC 2.80(L) 3.80 - 4.80 M/[facility] LAB HEMETOLOGY METHOD 05/02/2025 7:09 AM EST [facility] Hemoglobin 8.5(L) 11.5 - 16.0 g/dL LAB HEMETOLOGY METHOD 05/02/2025 7:09 AM [facility] Hematocrit 27.6(L) 35.0 - 47.0 % LAB HEMETOLOGY METHOD 05/02/2025 7:09 AM [facility] MCV 98.2(H) 79.0 - 98.0 FL LAB HEMETOLOGY METHOD 05/02/2025 7:09 AM [facility] MCH 30.2 27.0 - 32.0 pcg LAB HEMETOLOGY METHOD 05/02/2025 7:09 AM [facility] MCHC 30.8(L) 32.0 - 37.0 g/dL LAB HEMETOLOGY METHOD 05/02/2025 7:09 AM [facility] RDW 17.0(H) 11.0 - 15.0 % LAB HEMETOLOGY METHOD 05/02/2025 7:09 AM [facility] Platelets 272 130 - 400 K/mcL LAB HEMETOLOGY METHOD 05/02/2025 7:09 AM [facility] MPV 9.0 7.0 - 11.0 FL LAB HEMETOLOGY METHOD 05/02/2025 7:09 AM [facility] NRBC 0.0 <1.0 % LAB HEMETOLOGY METHOD 05/02/2025 7:09 AM [facility] NRBC Absolute 0.00 <0.10 K/mcL LAB HEMETOLOGY METHOD 05/02/2025 7:09 AM [facility] Neutrophils Relative 62.9 % LAB HEMETOLOGY METHOD 05/02/2025 7:09 AM [facility] Lymphocytes Relative 17.6 % LAB HEMETOLOGY METHOD 05/02/2025 7:09 AM [facility] Monocytes Relative 14.8 % LAB HEMETOLOGY METHOD 05/02/2025 7:09 AM [facility] Eosinophils Relative 4.1 % LAB HEMETOLOGY METHOD 05/02/2025 7:09 AM [facility] Basophils Relative 0.3 % LAB HEMETOLOGY METHOD 05/02/2025 7:09 AM [facility] Immature Granulocytes Relative 0.3 % LAB HEMETOLOGY METHOD 05/02/2025 7:09 AM [facility] Neutrophils Absolute 3.95 1.50 - 7.00 K/mcL LAB HEMETOLOGY METHOD 05/02/2025 7:09 AM [facility] Lymphocytes Absolute 1.11 1.00 - 5.00 K/mcL LAB HEMETOLOGY METHOD 05/02/2025 7:09 AM [facility] Monocytes Absolute 0.93 0.20 - 1.00 K/mcL LAB HEMETOLOGY METHOD 05/02/2025 7:09 AM [facility] Eosinophils Absolute 0.26 0.00 - 0.50 K/mcL LAB HEMETOLOGY METHOD 05/02/2025 7:09 AM [facility] Basophils Absolute 0.02 0.00 - 0.20 K/mcL LAB HEMETOLOGY METHOD 05/02/2025 7:09 AM [facility] Immature Granulocytes Absolute 0.02 0.00 - 0.03 K/mcL LAB HEMETOLOGY METHOD 05/02/2025 7:09 AM [facility] Blood Venous blood specimen / Unknown Venipuncture / Unknown 05/02/2025 6:48 AM EST 05/02/2025 6:53 AM EST us Miguelangel Winn MD LAB BLOOD ORDERABLES Final Re sult [facility] [address] [place] [address], * (ABNORMAL) Magnesium (05/02/2025 6:48 AM EST) Magnesium 1.8(L) 1.9 - 2.6 mg/dL LAB CHEMISTRY METHOD 05/02/2025 7:53 AM [facility] Blood Venous blood specimen / Unknown Venipuncture / Unknown 05/02/2025 6:48 AM EST 05/02/2025 6:53 AM EST us Miguelangel Winn MD LAB BLOOD ORDERABLES Final Re sult [facility] [address] [place] [address], * Basic metabolic panel (05/02/2025 6:48 AM EST) Sodium 143 133 - 145 mmol/L LAB CHEMISTRY METHOD 05/02/2025 7:53 AM [facility] Potassium 4.7 3.5 - 5.5 mmol/L LAB CHEMISTRY METHOD 05/02/2025 7:53 AM [facility] Chloride 108 96 - 110 mmol/L LAB CHEMISTRY METHOD 05/02/2025 7:53 AM [facility] CO2 31 21 - 32 mmol/L LAB CHEMISTRY METHOD 05/02/2025 7:53 AM [facility] Anion Gap 4 3 - 11 LAB CHEMISTRY METHOD 05/02/2025 7:53 AM [facility] Glucose 94 70 - 100 mg/dL LAB CHEMISTRY METHOD 05/02/2025 7:53 AM [facility] BUN 22 5 - 25 mg/dL LAB CHEMISTRY METHOD 05/02/2025 7:53 AM [facility] Creatinine 0.60 0.50 - 1.10 mg/dL LAB CHEMISTRY METHOD 05/02/2025 7:53 AM [facility] eGFR 90 >=60 mL/min/1. 73m2 LAB CHEMISTRY METHOD 05/02/2025 7:53 AM EST [facility] Comment:Calculation based on the Chronic Kidney Disease Epidemiology Collaboration (CKD-EPI) equation refit without adjustment for race. BUN/Creatinine Ratio 36.7 LAB CHEMISTRY METHOD 05/02/2025 7:53 AM [facility] Calcium 8.9 8.5 - 10.5 mg/dL LAB CHEMISTRY METHOD 05/02/2025 7:53 AM [facility] Blood Venous blood specimen / Unknown Venipuncture / Unknown 05/02/2025 6:48 AM EST 05/02/2025 6:53 AM EST Miguelangel Winn MD LAB BLOOD ORDERABLES Final Re sult [facility] [address] [place] [address], * (ABNORMAL) CBC auto differential (05/01/2025 4:31 PM EST) WBC 7.5 4.8 - 10.8 K/mcL LAB HEMETOLOGY METHOD 05/01/2025 4:47 PM [facility] RBC 2.80(L) 3.80 - 4.80 M/mcL LAB HEMETOLOGY METHOD 05/01/2025 4:47 PM [facility] Hemoglobin 8.7(L) 11.5 - 16.0 g/dL LAB HEMETOLOGY METHOD 05/01/2025 4:47 PM [facility] Hematocrit 27.7(L) 35.0 - 47.0 % LAB HEMETOLOGY METHOD 05/01/2025 4:47 PM [facility] MCV 98.9(H) 79.0 - 98.0 FL LAB HEMETOLOGY METHOD 05/01/2025 4:47 PM [facility] MCH 31.1 27.0 - 32.0 pcg LAB HEMETOLOGY METHOD 05/01/2025 4:47 PM [facility] MCHC 31.4(L) 32.0 - 37.0 g/dL LAB HEMETOLOGY METHOD 05/01/2025 4:47 PM [facility] RDW 16.9(H) 11.0 - 15.0 % LAB HEMETOLOGY METHOD 05/01/2025 4:47 PM [facility] Platelets 273 130 - 400 K/mcL LAB HEMETOLOGY METHOD 05/01/2025 4:47 PM [facility] MPV 8.9 7.0 - 11.0 FL LAB HEMETOLOGY METHOD 05/01/2025 4:47 PM [facility] NRBC 0.0 <1.0 % LAB HEMETOLOGY METHOD 05/01/2025 4:47 PM [facility] NRBC Absolute 0.00 <0.10 K/mcL LAB HEMETOLOGY METHOD 05/01/2025 4:47 PM [facility] Neutrophils Relative 76.6 % LAB HEMETOLOGY METHOD 05/01/2025 4:47 PM [facility] Lymphocytes Relative 9.4 % LAB HEMETOLOGY METHOD 05/01/2025 4:47 PM [facility] Monocytes Relative 10.7 % LAB HEMETOLOGY METHOD 05/01/2025 4:47 PM [facility] Eosinophils Relative 2.5 % LAB HEMETOLOGY METHOD 05/01/2025 4:47 PM [facility] Basophils Relative 0.4 % LAB HEMETOLOGY METHOD 05/01/2025 4:47 PM [facility] Immature Granulocytes Relative 0.4 % LAB HEMETOLOGY METHOD 05/01/2025 4:47 PM [facility] Neutrophils Absolute 5.77 1.50 - 7.00 K/mcL LAB HEMETOLOGY METHOD 05/01/2025 4:47 PM EST [facility] Lymphocytes Absolute 0.71(L) 1.00 - 5.00 K/[facility] LAB HEMETOLOGY METHOD 05/01/2025 4:47 PM EST [facility] Monocytes Absolute 0.81 0.20 - 1.00 K/[facility] LAB HEMETOLOGY METHOD 05/01/2025 4:47 PM EST [facility] Eosinophils Absolute 0.19 0.00 - 0.50 K/[facility] LAB HEMETOLOGY METHOD 05/01/2025 4:47 PM EST [facility] Basophils Absolute 0.03 0.00 - 0.20 K/[facility] LAB HEMETOLOGY METHOD 05/01/2025 4:47 PM EST [facility] Immature Granulocytes Absolute 0.03 0.00 - 0.03 K/[facility] LAB HEMETOLOGY METHOD 05/01/2025 4:47 PM EST [facility] Blood Venous blood specimen / Unknown Venipuncture / Unknown 05/01/2025 4:31 PM EST 05/01/2025 4:43 PM EST us Nik Vogt MD LAB BLOOD ORDERABLES Final Resul t [facility] [address] [place] [address], * Type and screen (05/01/2025 4:31 PM EST) ABO Group O 05/01/2025 5:40 PM EST [facility] Rh Type Positive 05/01/2025 5:40 PM EST [facility] Antibody Screen Negative 05/01/2025 5:40 PM EST [facility] Blood Venous blood specimen / Unknown Venipuncture / Unknown 05/01/2025 4:31 PM EST 05/01/2025 4:43 PM EST us Nik Vogt MD LAB BLOOD BANK TEST ORDERABLES F inal Result [facility] [address] [place] [address], * (ABNORMAL) Comprehensive metabolic panel (05/01/2025 4:31 PM EST) Sodium 141 133 - 145 mmol/L LAB CHEMISTRY METHOD 05/01/2025 5:10 PM EST [facility] Potassium 3.9 3.5 - 5.5 mmol/L LAB CHEMISTRY METHOD 05/01/2025 5:10 PM [facility] Chloride 107 96 - 110 mmol/L LAB CHEMISTRY METHOD 05/01/2025 5:10 PM [facility] CO2 30 21 - 32 mmol/L LAB CHEMISTRY METHOD 05/01/2025 5:10 PM [facility] Anion Gap 4 3 - 11 LAB CHEMISTRY METHOD 05/01/2025 5:10 PM [facility] Glucose 118(H) 70 - 100 mg/dL LAB CHEMISTRY METHOD 05/01/2025 5:10 PM [facility] BUN 24 5 - 25 mg/dL LAB CHEMISTRY METHOD 05/01/2025 5:10 PM [facility] Creatinine 0.67 0.50 - 1.10 mg/dL LAB CHEMISTRY METHOD 05/01/2025 5:10 PM [facility] eGFR 87 >=60 mL/min/1. 73m2 LAB CHEMISTRY METHOD 05/01/2025 5:10 PM [facility] Comment:Calculation based on the Chronic Kidney Disease Epidemiology Collaboration (CKD-EPI) equation refit without adjustment for race. BUN/Creatinine Ratio 35.8 LAB CHEMISTRY METHOD 05/01/2025 5:10 PM [facility] Calcium 8.7 8.5 - 10.5 mg/dL LAB CHEMISTRY METHOD 05/01/2025 5:10 PM EST [facility] AST (SGOT) 19 10 - 42 unit/L LAB CHEMISTRY METHOD 05/01/2025 5:10 PM [facility] ALT (SGPT) 26 10 - 60 unit/L LAB CHEMISTRY METHOD 05/01/2025 5:10 PM [facility] Alkaline Phosphatase 109 42 - 121 unit/L LAB CHEMISTRY METHOD 05/01/2025 5:10 PM [facility] Total Protein 5.5(L) 6.0 - 8.0 g/dL LAB CHEMISTRY METHOD 05/01/2025 5:10 PM [facility] Albumin 2.7(L) 3.2 - 5.0 g/dL LAB CHEMISTRY METHOD 05/01/2025 5:10 PM [facility] Total Bilirubin 0.3 0.0 - 1.4 mg/dL LAB CHEMISTRY METHOD 05/01/2025 5:10 PM [facility] Blood Venous blood specimen / Unknown Venipuncture / Unknown 05/01/2025 4:31 PM EST 05/01/2025 4:43 PM EST us Nik Vogt MD LAB BLOOD ORDERABLES Final Resul t [facility] [address] [place] [address], * XR Knee 1-2 Views Right (05/01/2025 [...] Signed Date: 05/01/2025 16:39 ET Workstation ID: [id number] Transcribed By: Self Edit Transcribed Date: 05/01/2025 [...] Signed Date: 05/01/2025 16:39 ET Workstation ID: [id number] Transcribed By: Self Edit Transcribed Date: 05/01/2025 [...] Signed Date: 05/02/2025 10:26 ET Workstation ID: [id number] Transcribed By: Self Edit Transcribed Date: 05/02/2025 [...] Signed Date: 05/02/2025 10:26 ET Workstation ID: [id number] Transcribed By: Self Edit Transcribed Date: 05/02/2025 [...] Signed Date: 05/01/2025 16:38 ET Workstation ID: [id number] Transcribed By: Self Edit Transcribed Date: 05/01/2025 [...] Signed Date: 05/01/2025 16:38 ET Workstation ID: [id number] Transcribed By: Self Edit Transcribed Date: 05/01/2025 [...] left thigh Open wound of right lower extremity, sequela Open wound of right lower extremity, sequela [...] Weekly, First dose on Sun05/03/25 at 0900 Given 05/17/2025 9:30 AM EST 50,000 Units Given 05/10/2025 8:32 AM EST 50,000 Units Given 05/03/2025 9:30 AM EST 50,000 Units cholestyramine (QUESTRAN) 4 gram packet 4 g 4 g, oral, 2 times daily with meals, First dose on Sun05/02/25 at 0800, If possible, give other medications 1 hour before or 4 hours after cholestyramine. Given 05/19/2025 8:36 AM EST 4 g Given 05/18/2025 4:25 PM EST 4 g Given 05/17/2025 4:16 PM EST 4 g dorzolamide (TRUSOPT) 2 % ophthalmic solution 1 drop 1 drop, Both Eyes, 2 times daily, First dose (after last modification) on Sun05/02/25 at 0900 Given 05/19/2025 8:37 AM EST [...] with blood product transfusion only, Starting on Sun05/06/25 at 0832, -Use only the amount required [...] at 2100 2210 (Given - Provider: Willian Mak RN) 1219 (AUG Hold - Provider: Automatic Transfer Provider - Reason: Patient not available)1528 (AUG Unhold - Provider: Automatic Transfer Provider)2224 (Given - Provider: Willian Mak, FELIPE) 2100 (Due) cholecalciferol (VITAMIN D-3) capsule 50,000 Units 50,000 Units, oral, Weekly, First dose on 05/03/25 at 0900 0930 (Given - Provider: Kim Norris RN) 1219 (AUG Hold - Provider: Automatic Transfer Provider - Reason: Patient not available)1528 ([facility] Unhold - Provider: Automatic Transfer Provider) cholestyramine [...] Provider: Kim Norris RN - Reason: NPO)1219 (AUG Hold - Provider: Automatic Transfer Provider - Reason: Patient not available)1528 ([facility] Unhold - Provider: Automatic Transfer Provider)1625 (Given [...] 0843 (Given - Provider: Kim Norris RN)1219 (MAR Hold - Provider: Automatic Transfer Provider - Reason: Patient not available)1528 (MAR Unhold - Provider: Automatic Transfer Provider)2224 (Given [...] available)1528 (MAR Unhold - Provider: Automatic Transfer Provider)2224 (Given - Provider: Willian Mak RN) 2100 (Due) magnesium sulfate 2 gram/50 mL (4 %) IVPB 2 g (COMPLETED) 2 g, intravenous, at 25 mL/hr, Administer over 2 Hours, Once, On Sun05/17/25 at 1345, For 1 dose 1334 (New Bag - Provider: Kim Norris RN)1544 (Stopped - Provider: Kim Norris RN) [...] Provider: Kim Norris RN)1659 (Stopped - Provider: iKm Norris, RN) 0331 (New Bag - Provider: Willian [...] Kim Norris RN - Comment: [facility] for 8 am) 0842 (Given - Provider: Kim Norris RN - Comment: [facility] for 8)1219 ([facility] Hold - Provider: Automatic Transfer Provider - Reason: Patient not available)1528 ([facility] Unhold - Provider: Automatic Transfer Provider) 0836 (Given - Provider: Charlotte Briscoe, FELIPE) polyethylene glycol (MIRALAX) packet 17 g 17 g, oral, Nightly, First dose on Sun05/01/25 at 2100, Bowel Regimen - for prevention of constipation 2216 (Not Given - Provider: Willian Mak RN - Reason: Patient/Resident/Agen t refused - education provided ) 1219 ([facility] Hold - Provider: Automatic Transfer Provider - Reason: Patient not available)1528 ([facility] Unhold - Provider: Automatic Transfer Provider)2246 (Not Given - Provider: Willian Mak RN - Reason: Patient/Resident/Agen t refused - education provided ) 2100 (Due) sodium chloride 0.9 % flush 10 mL(Linked Group 1) 10 mL, intravenous, 2 times daily, First dose on Sun05/01/25 at 2100 0859 (Given - Provider: Kim Norris, RN)2215 (Given - Provider: Willian Mak, FELIPE) 0843 (Given - Provider: Kim Norris, FELIPE)1219 ([facility] Hold - Provider: Automatic Transfer Provider - Reason: Patient not available)1528 ([facility] Unhold - Provider: Automatic Transfer Provider)2224 (Given - Provider: Willian Mak RN) 0853 (Given - Provider: Charlotte Briscoe, FELIPE)2100 (Due) PRN Medication Order 05/17/2025 05/18/2025 05/19/2025 acetaminophen (TYLENOL) tablet 650 mg 650 mg, oral, Every 6 hours PRN, mild pain, fever - temperature GREATER than 38 C (100.4 F), Starting on Sun05/01/25 at 1808 1219 ([facility] Hold - Provider: Automatic Transfer Provider - Reason: Patient not available)1528 ([facility] Unhold - Provider: Automatic Transfer Provider) HYDROmorphone (DILAUDID) injection 0.5 mg 0.5 mg, intravenous, Every 3 hours PRN, severe pain, breakthrough severe pain, Starting on Sun05/05/25 at 1342 1219 ([facility] Hold - Provider: Automatic Transfer Provider - Reason: Patient not available)1528 ([facility] Unhold - Provider: Automatic Transfer Provider) naloxone [...] up to 10 doses (0.4 mg) 1219 ([facility] Hold - Provider: Automatic Transfer Provider - Reason: Patient not available)1528 ([facility] Unhold - Provider: Automatic Transfer Provider) ondansetron (PF) (ZOFRAN) injection 4 mg 4 mg, intravenous, Every 6 hours PRN, vomiting, nausea, Starting on Sun05/01/25 at 1808, -ONLY give IV if patient is unable to take orally. -If inadequate response within 30 minutes, proceed to next-line agent or contact provider if no further options ordered. 1219 ([facility] Hold - Provider: Automatic Transfer Provider - Reason: Patient not available)1528 ([facility] Unhold - Provider: Automatic Transfer Provider) oxyCODONE (ROXICODONE) immediate release tablet 2.5 mg 2.5 mg, oral, Every 4 hours PRN, moderate pain, Starting on Sun05/05/25 at 1344 1219 ([facility] Hold - Provider: Automatic Transfer Provider - Reason: Patient not available)1528 ([facility] Unhold - Provider: Automatic Transfer Provider) oxyCODONE (ROXICODONE) immediate release tablet 5 mg 5 mg, oral, Every 4 hours PRN, severe pain, Starting on Sun05/05/25 at 1342 2210 (Given - Provider: Willian Mak RN) 1219 ([facility] Hold - Provider: Automatic Transfer Provider - Reason: Patient not available)1528 ([facility] [facility]) Unhold - Provider: Automatic Transfer Provider)2224 (Given - Provider: Willian Mak RN) sodium chloride 0.9 % flush 10 mL(Linked Group 1) 10 mL, intravenous, As needed, line care, Starting on Sun05/01/25 at 1808 1219 ([facility] Hold - Provider: Automatic Transfer Provider - Reason: Patient not available)1528 ([facility] Unhold - Provider: Automatic Transfer Provider) sodium chloride 0.9 % infusion 42 mL/hr, intravenous, As needed, pre-, and post- transfusion as needed for line flush purposes, in conjunction with blood product transfusion only, Starting on Sun05/06/25 at 0832, -Use only the amount required from a 250 mL bag of NS to adequately flush -A new NS bag is required with each new unit of blood administered 1219 ([facility] Hold - Provider: Automatic Transfer Provider - Reason: Patient not available)1528 ([facility] Unhold - Provider: Automatic Transfer Provider) sodium [...] each new unit of blood administered 1219 ([facility] Hold - Provider: Automatic Transfer Provider - Reason: Patient not available)1528 ([facility] Unhold - Provider: Automatic Transfer Provider) sodium chloride 0.9 % infusion 42 mL/hr, intravenous, As needed, pre-, and post- transfusion as needed for line flush purposes, in conjunction with blood product transfusion only, Starting on Sun05/09/25 at 1327, -Use only the amount required from a 250 mL bag of NS to adequately flush -A new NS bag is required with each new unit of blood administered 1219 ([facility] Hold - Provider: Automatic Transfer Provider - Reason: Patient not available)1528 ([facility] Unhold - Provider: Automatic Transfer Provider) Linked [...] 1 05/13/2025 WEIGHT BEARING RESTRICTIONS 1 05/13/2025 [id number] 4 05/09/2025 05/04/2025 APPLY (EQUIPMENT) 1 05/05/2025 [...] documented as of this encounter Care Teams [employer] Shift Manager Relationship Specialty Start Date End Date Lilliam Levy MD [address] [place] [id number] PCP - General Internal Medicine 07/11/21 documented as of this encounter
--- OUTSIDE RECORDS SUMMARY | 2025-05-19 12:23 | XMS_ITS | Clinical Summary ---
Author Organization [facility] Address [address] [place] [address] Phone Care Team Providers Care Assistant City Attorney Name Role Phone Lilliam Levy MD Primary Care Provider Allergies No known active allergies Medications multivit-min/ir on/folic acid/K (ADULTS MULTIVITAMIN ORAL) Take by mouth daily. Suspended dorzolamide-arvin oloL (COSOPT) 22.3-6.8 mg/mL ophthalmic solution Administer 1 drop into both eyes 2 (two) times a day. Suspended latanoprost (XALATAN) 0.005 % ophthalmic solution Administer 1 drop into both eyes at bedtime. Suspended alendronate (FOSAMAX) 70 mg tabletIndicatio ns:Age-related osteoporosis without current pathological fracture Take 1 tablet (70 mg total) by mouth every 7 (seven) days. 12 tablet 1 09/05/19 25 2024 Discontinued(S top Taking at Discharge) apixaban (Eliquis) 2.5 mg tablet TAKE 1 TABLET BY MOUTH TWICE A DAY 60 tablet 5 10/10/19 25 Suspended metoprolol succinate (TOPROL-XL) 25 mg 24 hr tablet TAKE 1 TABLET BY MOUTH EVERY DAY 90 tablet 1 10/15/19 25 Suspended atorvastatin (LIPITOR) 20 mg tablet Take 1 tablet (20 mg total) by mouth 1 (one) time each day. 90 tablet 1 11/25/19 Suspended Additional Information Patient taking differently:20 mg oralNightly, Reported on 05/01/2025 lisinopriL (PRINIVIL,ZESTR IL) 5 mg tablet TAKE 1 TABLET BY MOUTH EVERY DAY 90 tablet 3 01/13/20 25 2024 Discontinued(S top Taking at Discharge) oxyCODONE (ROXICODONE) 5 mg immediate release tablet Take 1 tablet (5 mg total) by mouth every 6 (six) hours if needed for severe pain or moderate pain for up to 3 days. Max Daily Amount: 20 mg 12 each 04/05/202024 Discontinued(S top Taking at Discharge) PARoxetine (PAXIL) 20 mg tablet TAKE 1 TABLET BY MOUTH EVERY DAY IN THE MORNING 90 tablet 04/14/20 Suspended cholestyramine (QUESTRAN) 4 gram packet TAKE 1 PACKET BY MOUTH 2 TIMES A DAY WITH MEALS. 180 packet 04/14/20 Suspended Additional Information Patient taking differently: 4 g oral 2 times daily with meals, Reported on 05/01/2025 acetaminophen (TYLENOL) 325 mg tablet Take 2 tablets (650 mg total) by mouth every 6 (six) hours if needed for mild pain, fever - temperature GREATER than 38 C (100.4 F) or headaches for up to 10 days. 04/17/202024 Additional Information Patient not taking.Reported on 05/01/2025 ascorbic acid (VITAMIN C) 500 mg tablet Take 1 tablet (500 mg total) by mouth 2 (two) times a day for 16 doses. 16 each 04/17/202024 polyethylene glycol (MIRALAX) 17 gram packet Take 17 g by mouth at bedtime for 3 days. 04/17/202024 vitamin A 3,000 mcg (10,000 unit) capsule Take 1 capsule (10,000 Units total) by mouth 1 (one) time each day for 7 doses. 04/18/202024 Additional Information Patient not taking.Reported on 05/01/2025 zinc sulfate (ZINCATE) 220 mg (50 mg elemental zinc) capsule Take 1 capsule (220 mg total) by mouth 1 (one) time each day for 1 dose. 04/18/20 25 2024 oxyCODONE (ROXICODONE) 5 mg immediate release tablet Take 1 tablet (5 mg total) by mouth every 6 (six) hours if needed for severe pain for up to 3 days. Max Daily Amount: 20 mg 04/17/20 25 2024 Discontinued oxyCODONE (ROXICODONE) 5 mg immediate release tablet Take 1 tablet (5 mg total) by mouth every 6 (six) hours if needed for severe pain for up to 3 days. Max Daily Amount: 20 mg 12 each 04/20/20 25 2024 dorzolamide (TRUSOPT) 2 % ophthalmic solution Administer 1 drop into the left eye 2 (two) times a day. 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 ([facility] V24) 05/18/2025 Hematoma of left thigh 05/12/2025 Zoe-prosthetic fracture of femur at tip of pros thesis 05/04/2025 Other closed fracture of dis yayo end of right femur, initial encounter ([facility] V24, [facility] V28) 05/02/2025 Periprosthetic fracture arou nd prosthetic joint, initial encounter 05/01/2025 Moderate malnutrition ([facility] V24) 04/12/2025 Bleeding from right hip wound 04/09/2025 Atrial fibrillation with rap id ventricular response ([facility] V24, [facility] V28) 04/09/2025 Closed displaced subtrochant alyssa fracture of right femur ([facility] V24, [facility] V28) 04/02/2025 S/P right hip fracture 04/01/2025 Coronary artery disease invo lving upper [place] heart without angina pectoris 02/11/2025 Glaucoma 10/03/2024 C. difficile diarrhea 08/24/2024 Collagenous colitis 04/19/2021 Atrial fibrillation ([facility] V24, [facility] V28) 0 01/17/2021 Assessment & Plan (11/26/2024 12:56 PM EDT): Orders: ECG 12 lead Transthoracic echocardiogram (TTE) complete with PRN contrast, bubble, strain, and 3D order panel; Future CHF (congestive heart failure) ([facility] V24, [facility] V28) 01/17/2021 Depression 01/17/2021 HTN (hypertension) 01/17/2021 Mitral valve regurgitation 01/17/2021 Overview (03/27/2024): S/p Mitral valve repair- 2014 Takotsubo cardiomyopathy 01/17/2021 Chronic obstructive pulmonar y disease ([facility] V24, [facility] V28) 04/27/2014 Resolved Problems Problem Noted Date Diagnosed Date Resolved Date NSTEMI (non-ST elevated myoc ardial infarction) ([facility] V24, [facility] V28) 01/17/2021 0 02/11/2025 Overview (03/27/2024): 12/2020 Dr Eller, holter monitor and cardiac cath as outpt. Encounters Date Type Department Care Team Description 05/18/2025 1:00 PM EST - 05/18/2025 2:30 PM EST Surgery [facility] OR [address] [place] [phone] Bhaskar Palomino MD INCISION DRAINAGE RIGHT HIP WITH POSSIBLE CLOSURE 05/18/2025 12:58 PM EST Anesthesia Event [facility] OR [address] [place] [phone] Chris Campos DO Swanson, Mona, CRNA 05/15/2025 11:48 AM EST Anesthesia Event [facility] OR [address] [place] [phone] Anselmo Colon MD 05/15/2025 10:00 AM EST - 05/15/2025 11:00 AM EST Surgery [facility] OR [address] [place] [phone] Gris Mojica MD INCISION DRAINAGE EXTREMITY LOWER WITH WOUND VAC CHANGE [47056 (CPT )] 05/13/2025 9:47 AM EST Anesthesia Event [facility] OR [address] [place] [phone] Nik Dash MD Devlin, Brandon, SRNA 05/13/2025 9:30 AM EST - 05/13/2025 10:45 AM EST Surgery [facility] Main OR [address] [place] [phone] Gris Mojica MD INCISION DRAINAGE EXTREMITY LOWER [[id number] (CPT )] 05/05/2025 11:27 AM EST Anesthesia Event [facility] OR [address] [place] [phone] Wilmer Comer MD Swanson, Mona, CRNA 05/05/2025 9:55 AM EST - 05/05/2025 11:55 AM EST Surgery [facility] OR [address] [place] [phone] Brian Baeza MD ORIF RIGHT FEMUR DISTAL [[id number] (CPT )] 05/01/2025 2:31 PM EST - Present Hospital Encounter [facility] Urology Unit [address] [place] [phone] Nik Vogt MD Flores, Carlos M, MD Nasser, Nada S, MD Kokosadze, Estate, MD Mohani, Priya, MD Kela, Kobi Martin MD Other closed fracture of distal end of right femur, initial encounter ([facility] V24, [facility] V28) (Primary Dx); Hematoma 05/01/2025 Telephone Adult Medicine - [address] [phone] Lilliam Levy MD 04/23/2025 7:38 AM EDT - 04/23/2025 11:59 PM EDT Hospital Encounter [facility] Ortho Xray [address] [place] [address] Pain Discharge Disposition: Home or Self Care 04/15/2025 7:42 AM EDT Anesthesia Event [facility] OR [address] [place] [phone] Yanna Mujica MD 04/15/2025 7:30 AM EDT - 04/15/2025 9:00 AM EDT Surgery [facility] OR [address] [place] [phone] Gris Mojica MD Incision & drainage right hip [[id number] (CPT )] 04/13/2025 1:40 PM EDT - 04/13/2025 3:10 PM EDT Surgery [facility] OR [address] [place] [phone] Gris Mojica MD INCISION DRAINAGE R HIP LATERAL 04/13/2025 1:26 PM EDT Anesthesia Event [facility] OR [address] [place] [phone] Fadumo Dockery MD 04/10/2025 7:34 AM EDT Anesthesia Event [facility] OR [address] [place] [phone] Wilmer Comer MD Hard Ludy [facility] 04/10/2025 7:30 AM EDT - 04/10/2025 9:00 AM EDT Surgery [facility] OR [address] [place] [phone] Gris Mojica MD right hip wound incicsion and drainage and wound vac placement 04/09/2025 8:54 AM EDT - 04/20/2025 3:48 PM EDT Hospital Encounter [facility] Intermediate Care Unit B [address] [place] [phone] Arvin Alejandro MD Flores, Carlos M, MD Japaridze, Anna, MD Rasul, Yar M, MD Surendran, Anupama, MD Atrial fibrillation with rapid ventricular response (CMS/HCC V24, CMS/HCC V28) (Primary Dx); Bleeding from right hip wound, initial encounter Discharge Disposition: Intermediate Facility 04/06/2025 Lab Requisition [facility] - Main Lab [address] [facility] [place] [phone] Casimiro Oh MD Essential (primary) hypertension; Unspecified atrial fibrillation (CMS/HCC V24, CMS/HCC V28); Displaced intertrochanteric fracture of right femur, initial encounter for closed fracture ([facility] V24, [facility] V28) 04/03/2025 8:50 AM EDT Anesthesia Event [facility] Main OR [address] [place] [phone] Marcos Trujillo DO Couture, Alison, CRNA 04/03/2025 7:30 AM EDT - 04/03/2025 9:30 AM EDT Surgery [facility] Main OR [address] [place] [phone] Brian Baeza MD ARTHROPLASTY RIGHT HIP TOTAL, PLATING [[id number] (CPT )] 04/01/2025 10:30 AM EDT - 04/05/2025 4:33 PM EDT Hospital Encounter [facility] Intermediate [facility] B [address] [place] [phone] Ean Hoffman MD Bukalo, Nermina, MD Shah, Princy, MD Displaced intertrochanteric fracture of right femur, initial encounter for closed fracture ([facility] V24, [facility] V28) (Primary Dx); Traumatic hematoma of right forearm, initial encounter; Closed displaced subtrochanteric fracture of right femur, initial encounter ([facility] V24, [facility] V28) Discharge Disposition: Intermediate Facility 04/01/2025 Results [facility] [address] [place] [address] Florina Todd NP 03/27/2025 2:30 PM EDT Ancillary Procedure [facility] [address] [place] [address] Paroxysmal atrial fibrillation ([facility] V24, [facility] V28) 03/20/2025 Telephone [facility] [address] [place] [address] Alyssa Castillo [place] 03/13/2025 3:00 PM EDT Ancillary Procedure [facility] - [address] [place] [phone] Paroxysmal atrial fibrillation ([facility] V24, [facility] V28) 03/06/2025 2:00 PM EDT Consult Orthopedics - [facility] [address] [place], [place] [phone] Adrian Brower PA Primary osteoarthritis of right hip (Primary Dx); Arthritis of both hips; Trigger ring finger of right hand; Trigger finger, right little finger 03/06/2025 1:54 PM EDT - 03/06/2025 11:59 PM EDT Hospital Encounter XRAY - [facility] [address] [place], [place] [phone] Bilateral hip pain Discharge Disposition: Home or Self Care from Last 3 Months Immunizations Immunization Administration Dates Next Due Influenza Quadravalent, 0.5m l (Fluzone High-dose) 65yo and older 04/24/2022 Influenza trivalent, 0.5mL ( Fluad) 65yo and older 04/10/2024 Influenza trivalent, 0.5mL ( Fluzone High-dose) 65yo and older 03/26/2023,04/19/2021,05/05/2020,02/16,02/15/2015 Pfizer SARS-CoV-2 COVID-19, mRNA, LNP-S, preservative free 03/30/2021 Pneumococcal conjugate 20 va lent (Prevnar 20, PCV 20) 2mo and older 04/24/2022 Pneumococcal polysaccharide 23 valent (Pneumovax 23) 2yo and older 04/19/2021 Td Tetanus diptheria (Tdvax) 7yo and older 10/30/2023 Surgical History Surgery Date Site/Laterality Comments TONSILLECTOMY PROCEDURE: HISTORICAL TONSILLECTOMY OTHER SURGICAL HISTORY PROCEDURE: HISTORICAL MITRAL VALVE REPL OTHER SURGICAL HISTORY PROCEDURE: HISTORY OTHER; COMMENT: right humerus fracture JOINT REPLACEMENT Medical History Medical History Date Comments Atrial fibrillation ([facility] V24, [facility] V28) 01/17/2021 DX:Atrial fibrillation (HCC) CHF (congestive heart failur e) (CMS/[facility] V24, [facility] V28) 01/17/2021 DX:CHF (congestive heart fa ilure) ([facility]) Takotsubo cardiomyopathy 01/17/2021 DX:Tako tsubo cardiomyopathy NSTEMI (non-ST elevated myoc ardial infarction) ([facility] V24, [facility] V28) 01/17/2021 DX:NSTEMI (non-ST elevated m yocardial infarction) ([facility]); COMMENT: 12/2020 Dr Eller, holter monitor and cardiac cath as outpt. Depression 01/17/2021 DX:Depression Pubic ramus fracture ([facility]/ [facility] V24, [facility] V28) 11/30/2021 DX:Pubic ramus fracture ([facility] ) Clostridium difficile diarrhea 03/26/2024 D X:Clostridium difficile diarrhea NSTEMI (non-ST elevated myoc ardial infarction) ([facility] V24, [facility] V28) 01/17/202112/2020 Dr Eller, holter mon itor and cardiac cath as outpt. Hypertension Family History Medical History Relation Name Comments Heart attack Maternal Grandfather Relation Name Status Comments Maternal Grandfather Social History Tobacco Use Types Packs/Day Years Used Date Smoking Tobacco: Former Cigarettes 0.5 Q uit: 11/23/2020 Smokeless Tobacco: Never Tobacco Cessation:Counseling Given: Not Answered Alcohol Use Standard Drinks/Week Comments Yes 1 [...] care for your loved ones. For example, director of early childhood or elderly care for an older adult? [...] Orientation Straight 06/27/2024 10 :57 AM EST Obstetrics History Last Filed Vital Signs Vital Sign Reading [...] Mass Index 17.47 05/01/2025 2:38 PM EST Plan of Treatment Upcoming Encounters Date Type Department Care Team (Late st Contact Info) Description 05/22/2025 7:30 AM EST - 05/22/2025 9:00 AM EST Surgery [facility] Main OR [address] [place] [phone] Gris Mojica MD [address] [place] [address] [phone] DEBRIDEMENT WOUND RIGHT DISTAL FEMUR 05/27/2025 11:00 AM EST Office Visit General Surgery - [place] [address] [facility] [address] [place] [phone] Marcellus Powell, DO [address] [place] [phone] 06/02/2025 3:15 PM EST Appointment Bone Density - [address] [phone] 06/11/2025 2:30 PM EST Office Visit Adult Medicine - [place] [address] [place] [phone] Lilliam Levy MD [address] [place] [address] 08/06/2025 10:50 AM EST [facility] [address] [facility] [address] [place] [phone] Bhaskar Becker MD [address] [place] [phone] Scheduled Procedures Name Priority Associated Diagnoses Date/Ti me DEBRIDEMENT WOUND Open wound of right lower extremity, sequela Infection associated with internal fixation device of right femur, subsequent encounter 05/22/2025 7:30 AM EST Health Maintenance Due Date Last Done Comments Zoster Vaccines (1 of 2) 1992 RSV Immunization Adult Patients (1 - 1-dose 75+ series) 2017 COVID-19 Vaccine (5 - 2024- season) 2025 04/28/2022, 03/30/2021, 08/14/2020, Additional history exists Influenza Vaccine (#1) 2025 , 03/26/2023, 04/24/2022, Additional history exists Medicare Annual Wellness Visit 09/16/2025 09/16/2024 Social Influencers of Health Screening 05/01/2026 05/01/2025 Falls Risk Assessment 05/18/2026 05/18/2025 , 02/11/2025, 12/17/2024, Additional history exists Hypertension/CHF/CAD Annual BMP Blood Test 05/18/2026 05/18/2025, 05/16/2025, 05/15/2025, Additional history exists Cholesterol Screening (Lipid Panel) 11/21/2029 11/21/2024, 03/26/2023 Osteoporosis Screening (Bone Density Screening) 05/28/2033 05/28/2023 DTaP,Tdap,and Td Vaccines (2 - Td or Tdap) 10/29/2033 10/30/2023 Pneumococcal Vaccine: 50+ Years Completed 04/24/2022, 04/19/2021 Depression Screening Completed 02/04/2025 HIB Vaccines Aged Out No longer eligi ble based on patient's age to complete this topic HPV Vaccines Aged Out No longer eligi ble based on patient's age to complete this topic Hepatitis A Vaccines Aged Out No long er eligible based on patient's age to complete this topic Hepatitis B Vaccines Aged Out No long er eligible based on patient's age to complete this topic IPV Vaccines Aged Out No longer eligi ble based on patient's age to complete this topic MMR Vaccines Aged Out No longer eligi ble based on patient's age to complete this topic Meningococcal ACWY Vaccine Aged Out N o longer eligible based on patient's age to complete this topic Meningococcal B Vaccine Aged Out No l onger eligible based on patient's age to complete this topic RSV Immunization Patients Under 20 months Aged Out No longer eligible based on patient's age to complete this topic Varicella Vaccines Aged Out No longer eligible based on patient's age to complete this topic Goals Goal Patient Goal Type Associated Problems [...] Plan Autogenerated Problem No Sindi Jennings PA Medical Devices Implanted Type Area Paper Folder Device Identifier Shelf Expiration Date Model / Serial / Lot Cement Bone Simplex Full Dose - Sn/A - [id number] Implanted:Qty : 3 on 04/03/2025 by Brian Baeza MD at [facility] Bone Cement Right: Hip [employer] 06/24/2027 6191-1-001 / N/A / [id number] Plate Troc Rght Narrow - Sn/A - [id number] Implanted:Qty : 1 on 04/03/2025 by Brian Baeza MD at [facility] Internal and External Fixation Right: Hip [employer] [id number] 09/18/2034 [id number] / N/A / [id number] Screw Kareem Slftp Ncb 5x32mm - Sn/A - [id number] Implanted:Qty : 2 on 04/03/2025 by Brian Baeza MD at [facility] Internal and External Fixation Right: Hip [employer] [id number] / N/A / N/A Screw Bone 5mm 3.5x28mm Ncb - Sn/A - [id number] Implanted:Qty : 1 on 04/03/2025 by Brian Baeza MD at [facility] Internal and External Fixation Right: Hip [employer] [id number] / N/A / N/A Screw Lcking 3.5x30mm Ti Cancellous - Sn/A - [id number] Implanted:Qty : 1 on 04/03/2025 by Brian Baeza MD at [facility] Internal and External Fixation Right: Hip [employer] [id number] / N/A / N/A Screw Lcking 3.5x26mm Ti Cancellous - Sn/A - [id number] Implanted:Qty : 1 on 04/03/2025 by Brian Baeza MD at [facility] Internal and External Fixation Right: Hip [employer] [id number] / N/A / N/A Screw Bone Ti 32x3.5mm Lck - Sn/A - [id number] Implanted:Qty : 1 on 04/03/2025 by Brian Baeza MD at [facility] Internal and External Fixation Right: Hip [employer] [id number] / N/A / N/A Locking Screw 3.5x40mm - Sn/A - [id number] Implanted:Qty : 2 on 04/03/2025 by Brian Baeza MD at [facility] Internal and External Fixation Right: Hip [employer] [id number] / N/A / N/A Screw Lcking 3.5x20mm Ti Cancellous - Sn/A - [id number] Implanted:Qty : 1 on 04/03/2025 by Brian Baeza MD at [facility] Internal and External Fixation Right: Hip [employer] [id number] / N/A / N/A Screw Bone 3.5mm 42mm Ti Univ - Sn/A - [id number] Implanted:Qty : 1 on 04/03/2025 by Brian Baeza MD at [facility] Internal and External Fixation Right: Hip [employer] [id number] / N/A / N/A Cap Scrw Lckng Ncb - Sn/A - [id number] Implanted:Qty : 7 on 04/03/2025 by Brian Baeza MD at [facility] Internal and External Fixation Right: Hip [employer] [id number] / N/A / N/A Screw Kareem Slftp Ncb 5x30mm - Sn/A - [id number] Implanted:Qty : 3 on 04/03/2025 by Brian Baeza MD at [facility] Internal and External Fixation Right: Hip [employer] [id number] / N/A / N/A Plate Sheldon Lcp 4.1z429vx 10h Ch Combi Hole Narrow Lrg Frag Ss - Sn/A - [id number] Implanted:Qty : 1 on 05/05/2025 by Brian Baeza MD at [facility] Internal and External Fixation Right: Femur [employer] 224.601 / N/A / N/A Screw Lcking 4.5x70mm Cocr [place] - Sn/A - [id number] Implanted:Qty : 2 on 05/05/2025 by Brian Baeza MD at [facility] Internal and External Fixation Right: Femur [facility] 7206.1070 / N/A / N/A Screw Lcking 4.5x75mm Cocr [place] - Sn/A - [id number] Implanted:Qty : 1 on 05/05/2025 by Brian Baeza MD at [facility] Internal and External Fixation Right: Femur [facility] 7206.1075 / N/A / N/A Screw Lcking 4.5x40mm Cocr [place] - Sn/A - [id number] Implanted:Qty : 3 on 05/05/2025 by Brian Baeza MD at [facility] Internal and External Fixation Right: Femur [facility] 7206.1040 / N/A / N/A Hip Hd V40 Cocr Lfit 36mm 0 - Sn/A - [id number] Implanted:Qty : 1 on 04/03/2025 by Brian Baeza MD at [facility] Joints Hip Right: Hip [employer] [id number] 07/22/2029 6260-9-136 / N/A / [id number] Plug Bone Sm - Sn/A - [id number] Implanted:Qty : 1 on 04/03/2025 by Brian Baeza MD at [facility] Joints Hip Right: Hip [employer] [id number] 08/28/2029 6215-5-001 / N/A / [id number] 6000 Hip Stem Fem Cmnt [place] 37.5mm No0 - Sn/A - [id number] Implanted:Qty : 1 on 04/03/2025 by Brian Baeza MD at [facility] Joints Hip Right: Hip [employer] [id number] 06/05/2029 0580-1-352 / N/A / [id number] [employer] Cup Implanted:Qty : 1 on 04/03/2025 by Brian Baeza MD at [facility] Right: Hip [employer] 12/08/2029 7309-3-652 / N/A / [id number] Ncb Screw 5.0x32mm Implanted:Qty : 1 on 04/03/2025 by Brian Baeza MD at [facility] Right: Hip [employer] 02.67546.026 / N/A / N/A Ncb Semi Plate 12h L285mm Implanted:Qty : 1 on 04/03/2025 by Brian Baeza MD at [facility] Right: Hip [employer] 02.41300.012 / N/A / N/A Right Plate 17 Shaft Holes 267mm Length Implanted:Qty : 1 on 05/05/2025 by Brian Baeza MD at [facility] Right: Femur [employer] 1195.4217 / NA / NA Nonlocking Screw [id number] Implanted:Qty : 1 on 05/05/2025 by Brian Baeza MD at [facility] Right: Femur [employer] 1206.2048 / NA / NA Locking Screw 4.5x68mm Implanted:Qty : 1 on 05/05/2025 by Brian Baeza MD at [facility] Right: Fem[facility] 7206.1068 / N/A / N/A Locking Screw 4.5x85mm Implanted:Qty : 1 on 05/05/2025 by Brian Baeza MD at [facility] Right: [employer] [facility] 7206.1085 / N/A / N/A Locking Screw 4.5x80mm Implanted:Qty : 1 on 05/05/2025 by Brian Baeza MD at [facility] Right: [employer] [facility] 7206.1080 / N/A / N/A Locking Screw 4.5x30mm Implanted:Qty : 1 on 05/05/2025 by Brian Baeza MD at [facility] Right: [employer]ur [facility] 7206.1030 / N/A / N/A Non Locking Screw 4.5x40mm Implanted:Qty : 2 on 05/05/2025 by Brian Baeza MD at [facility] Right: Femur [facility] 1206.2040 / N/A / N/A Non Locking Screw 4.5x46mm Implanted:Qty : 1 on 05/05/2025 by Brian Baeza MD at [facility] Right: Femur [facility] 1206.2046 / N/A / N/A Procedures * The patient is currently admitted. The information in this section might not be complete until the patient is discharged. Procedure Name Priority Date/Time Associated Diagnosis Comments XR PELVIS 1-2 VIEWS Routine 05/18/2025 2:36 PM EST OXYGEN THERAPY, ADULT Routine 05/18/2025 2:04 PM EST TH AN LMA(NO CHARGE) Routine 05/18/2025 1:37 PM EST INCISION DRAINAGE EXTREMITY LOWER 05/18/2025 12:58 PM EST Open wound of right lower extremity, sequela Case Notes Repeat I+D of right hip wound on 05/18, please have wound vac supplies available MAGNESIUM Routine 05/18/2025 6:21 AM EST BASIC METABOLIC PANEL Routine 05/18/2025 6:21 AM EST COMPLETE BLOOD COUNT Routine 05/18/2025 6:21 AM EST SST - GOLD Routine 05/17/2025 8:56 AM EST EXTRA TUBES Routine 05/17/2025 8:56 AM EST CBC WITH AUTO DIFFERENTIAL Routine 05/17/2025 8:56 AM EST CBC AND DIFFERENTIAL Routine 05/17/2025 8:56 AM EST MAGNESIUM Routine 05/16/2025 6:31 AM EST BASIC METABOLIC PANEL Routine 05/16/2025 6:31 AM EST COMPLETE BLOOD COUNT Routine 05/16/2025 6:31 AM EST PHOSPHORUS Routine 05/16/2025 6:31 AM EST SOLORZANO URINE CULTURE TUBE Routine 05/15/2025 4:37 PM EST URINALYSIS WITH REFLEX MICROSCOPIC AND CULTURE Routine 05/15/2025 4:37 PM EST URINALYSIS WITH REFLEX MICROSCOPIC AND CULTURE Routine 05/15/2025 4:37 PM EST CULTURE URINE Routine 05/15/2025 4:37 PM EST OXYGEN THERAPY, ADULT Routine 05/15/2025 12:41 PM EST NH INCISION & DRAINAGE ABSCESS COMPLICATED/MULTIPL E 05/15/2025 11:49 AM EST Hematoma of left [...] XR HIP 1 VIEW RIGHT Routine 05/13/2025 11:58 AM EST OXYGEN THERAPY, ADULT Routine 05/13/2025 10:51 AM EST OXYGEN THERAPY, ADULT Routine 05/13/2025 10:51 AM EST CULTURE WOUND DEEP Routine 05/13/2025 10:25 AM EST Hematoma TH AN LMA(NO CHARGE) Routine 05/13/2025 10:24 AM EST CULTURE WOUND DEEP Routine 05/13/2025 10:24 AM EST Hematoma CULTURE WOUND DEEP Routine 05/13/2025 10:22 AM EST Hematoma NH INCISION AND DRAINAGE LEG OR ANKLE DEEP [...] AUTO DIFFERENTIAL Routine 05/10/2025 6:01 AM EST BASIC METABOLIC PANEL Routine 05/10/2025 6:01 AM EST CBC AND DIFFERENTIAL Routine 05/10/2025 6:01 AM EST TRANSFUSE RED BLOOD CELLS Routine 05/09/2025 3:56 PM EST TYPE AND SCREEN Routine 05/09/2025 1:41 PM EST PREPARE RBC Routine 05/09/2025 1:28 PM EST POCT GLUCOSE BLOOD Routine 05/09/2025 7:56 AM EST CBC WITH AUTO DIFFERENTIAL Routine [...] PREPARE RBC Routine 05/06/2025 8:34 AM EST BASIC METABOLIC PANEL Routine 05/06/2025 6:22 AM EST COMPLETE BLOOD COUNT Routine 05/06/2025 6:22 AM EST XR FEMUR 2+ VIEWS RIGHT Routine 05/05/2025 1:00 PM EST TH AN ENDOTRACHEAL(NO CHARGE) Routine 05/05/2025 12:42 PM EST NH OPEN TX FEMORAL FX DISTAL END/MEDIAL/LATERAL CONDYLE INCL INTERNAL FIXN 05/05/2025 11:27 AM EST Periprosthetic fracture of femur at tip of prosthesis, initial encounter Case Notes C-ARM, munira flat top table, globus distal lateral femoral [...] WITH INR Routine 05/04/2025 7:00 AM EST PHOSPHORUS Routine 05/04/2025 7:00 AM EST MAGNESIUM Routine 05/04/2025 7:00 AM EST COMPREHENSIVE METABOLIC PANEL Routine 05/04/2025 7:00 AM EST CBC AND DIFFERENTIAL Routine 05/04/2025 7:00 AM EST SST - GOLD Routine 05/03/2025 6:48 AM EST EXTRA TUBES Routine 05/03/2025 6:48 AM EST HEMOGLOBIN AND HEMATOCRIT Routine 05/03/2025 6:48 AM EST IRON AND TIBC Add-On 05/02/2025 6:48 AM EST VITAMIN B12 Add-On 05/02/2025 6:48 AM EST VITAMIN D 25 HYDROXY Add-On 05/02/2025 6:48 AM EST CBC WITH AUTO DIFFERENTIAL Routine 05/02/2025 6:48 AM EST CBC AND DIFFERENTIAL Routine 05/02/2025 6:48 AM EST MAGNESIUM Routine 05/02/2025 6:48 AM EST BASIC METABOLIC PANEL Routine 05/02/2025 6:48 AM EST CBC WITH AUTO DIFFERENTIAL STAT 05/01/2025 4:31 PM EST TYPE AND SCREEN STAT 05/01/2025 4:31 PM EST COMPREHENSIVE METABOLIC PANEL STAT 05/01/2025 4:31 PM EST CBC AND DIFFERENTIAL STAT 05/01/2025 4:31 PM EST XR KNEE 1-2 VIEWS RIGHT STAT 05/01/2025 3:46 PM EST XR FEMUR 2+ VIEWS RIGHT STAT 05/01/2025 3:46 PM EST XR HIP 2-3 VIEWS RIGHT STAT 05/01/2025 3:46 PM EST XR FEMUR 2+ VIEWS RIGHT Routine 04/23/2025 12:30 PM EDT Pain ECG ANNOTATED 04/21/2025 SST - GOLD Routine 04/18/2025 5:48 AM EDT EXTRA TUBES Routine 04/18/2025 5:48 AM EDT CBC WITH AUTO DIFFERENTIAL Timed 04/18/2025 5:48 AM EDT CBC AND DIFFERENTIAL Timed 04/18/2025 5:48 AM EDT SST - GOLD Routine 04/17/2025 6:45 AM EDT EXTRA TUBES Routine 04/17/2025 6:45 AM EDT CBC WITH AUTO DIFFERENTIAL Timed 04/17/2025 6:45 AM EDT CBC AND DIFFERENTIAL Timed 04/17/2025 6:45 AM EDT CBC WITH AUTO DIFFERENTIAL Timed 04/16/2025 5:49 AM EDT BASIC METABOLIC PANEL Routine 04/16/2025 5:49 AM EDT CBC AND DIFFERENTIAL Timed 04/16/2025 5:49 AM EDT TH AN LMA(NO CHARGE) Routine 04/15/2025 8:11 AM EDT NH INCISION AND DRAINAGE PELVIS OR HIP JOINT AREA DEEP ABSCESS OR HEMATOMA 04/15/2025 7:42 AM EDT Bleeding from right hip wound, initial encounter Case Notes Ambrocio bag, cysto tubing, have vac supplies ready but will likely close wound Special Needs ADDED CPT CODE 51389 PER BURAK HAJI AC 04/14 CBC WITH AUTO DIFFERENTIAL Timed 04/15/2025 6:33 AM EDT CBC AND DIFFERENTIAL Timed 04/15/2025 6:33 AM EDT BASIC METABOLIC PANEL Add-On 04/15/2025 6:29 AM EDT SST - GOLD Routine 04/15/2025 6:29 AM EDT EXTRA TUBES Routine 04/15/2025 6:29 AM EDT TRANSFUSE RED BLOOD CELLS Routine 04/14/2025 12:33 PM EDT PREPARE RBC Routine 04/14/2025 9:14 AM EDT CBC WITH AUTO DIFFERENTIAL Timed 04/14/2025 5:16 AM EDT BASIC METABOLIC PANEL Routine 04/14/2025 5:16 AM EDT CBC AND DIFFERENTIAL Timed 04/14/2025 5:16 AM EDT OXYGEN THERAPY, ADULT Routine 04/13/2025 2:07 PM EDT TH AN LMA(NO CHARGE) Routine 04/13/2025 1:50 PM EDT INCISION DRAINAGE HIP LATERAL 04/13/2025 1:25 PM EDT Bleeding from right hip wound, initial encounter Case Notes position lateral (right side up, left side down) on ambrocio bag on normal OR table, cysto tubing, wound vac supplies MAGNESIUM Routine 04/13/2025 6:16 AM EDT BASIC METABOLIC PANEL Routine 04/13/2025 6:16 AM EDT CBC WITH AUTO DIFFERENTIAL Routine 04/13/2025 6:15 AM EDT CBC AND DIFFERENTIAL Routine 04/13/2025 6:15 AM EDT TYPE AND SCREEN Routine 04/12/2025 6:10 AM EDT CBC WITH AUTO DIFFERENTIAL Routine 04/12/2025 6:05 AM EDT CBC AND DIFFERENTIAL Routine 04/12/2025 6:05 AM EDT BASIC METABOLIC PANEL Routine 04/12/2025 6:05 AM EDT HEMOGLOBIN AND HEMATOCRIT Routine 04/11/2025 4:06 PM EDT CBC WITH AUTO DIFFERENTIAL Routine 04/11/2025 5:23 AM EDT MAGNESIUM Routine 04/11/2025 5:23 AM EDT CBC AND DIFFERENTIAL Routine 04/11/2025 5:23 AM EDT BASIC METABOLIC PANEL Routine 04/11/2025 5:23 AM EDT XR PELVIS 1-2 VIEWS Routine 04/10/2025 9:29 AM EDT OXYGEN THERAPY, ADULT Routine 04/10/2025 8:37 AM EDT CULTURE ANAEROBIC WITH GRAM STAIN Routine 04/10/2025 8:03 AM EDT Bleeding from right hip wound, initial encounter CULTURE ANAEROBIC WITH GRAM STAIN Routine 04/10/2025 8:03 AM EDT Bleeding from right hip wound, initial encounter CULTURE ANAEROBIC WITH GRAM STAIN Routine 04/10/2025 8:03 AM EDT Bleeding from right hip wound, initial encounter CULTURE WOUND DEEP Routine 04/10/2025 8:03 AM EDT Bleeding from right hip wound, initial encounter CULTURE WOUND DEEP Routine 04/10/2025 8:03 AM EDT Bleeding from right hip wound, initial encounter CULTURE WOUND DEEP Routine 04/10/2025 8:03 AM EDT Bleeding from right hip wound, initial encounter TH AN ENDOTRACHEAL(NO CHARGE) Routine 04/10/2025 7:51 AM EDT INCISION DRAINAGE HIP LATERAL 04/10/2025 7:33 AM EDT Bleeding from right hip wound, initial encounter Case Notes CULTURES READY, IRRIGATION AVAILABLE, NO ANTIBIOTICS UNTIL CULTURES ARE DONE UNLESS DR MOJICA STATES DIFFERENT, POSITION IF TOTAL HIP BEING DONE. CBC WITH AUTO DIFFERENTIAL Routine 04/10/2025 5:14 AM EDT CBC AND DIFFERENTIAL Routine 04/10/2025 5:14 AM EDT MAGNESIUM Routine 04/10/2025 5:14 AM EDT BASIC METABOLIC PANEL Routine 04/10/2025 5:14 AM EDT TYPE AND SCREEN STAT 04/09/2025 2:[address] LOWER EXTREMITY W CONTRAST RIGHT STAT 04/09/2025 11:30 AM EDT C-REACTIVE PROTEIN Add-On 04/09/2025 9:48 AM EDT CBC WITH AUTO DIFFERENTIAL STAT 04/09/2025 9:48 AM EDT PROTHROMBIN TIME WITH INR STAT 04/09/2025 9:48 AM EDT MAGNESIUM STAT 04/09/2025 9:48 AM EDT COMPREHENSIVE METABOLIC PANEL STAT 04/09/2025 9:48 AM EDT CBC AND DIFFERENTIAL STAT 04/09/2025 9:48 AM EDT ECG 12-LEAD STAT 04/09/2025 9:14 AM EDT BASIC METABOLIC PANEL Routine 04/06/2025 8:10 AM EDT Essential (primary) hypertension Unspecified atrial fibrillation (CMS/HCC V24, CMS/HCC V28) Displaced intertrochanteric fracture of right femur, initial encounter for closed fracture (CMS/HCC V24, CMS/HCC V28) COMPLETE BLOOD COUNT Routine 04/06/2025 8:10 AM EDT Essential (primary) hypertension Unspecified atrial fibrillation (CMS/HCC V24, CMS/HCC V28) Displaced intertrochanteric fracture of right femur, initial encounter for closed fracture (CMS/HCC V24, CMS/HCC V28) ECG OUTSIDE 04/06/2025 ECG ANNOTATED 04/06/2025 HEMOGLOBIN AND HEMATOCRIT Routine 04/05/2025 5:16 AM EDT BASIC METABOLIC PANEL Routine 04/05/2025 5:16 AM EDT HEMOGLOBIN AND HEMATOCRIT Routine 04/04/2025 5:56 PM EDT HEMOGLOBIN AND HEMATOCRIT Routine 04/04/2025 5:28 AM EDT BASIC METABOLIC PANEL Routine 04/04/2025 5:28 AM EDT HEMOGLOBIN AND HEMATOCRIT STAT 04/04/2025 1:01 AM EDT OXYGEN THERAPY, ADULT Routine 04/03/2025 11:41 AM EDT TISSUE EXAM Routine 04/03/2025 11:35 AM EDT Closed displaced subtrochanteric fracture of right femur, initial encounter ([facility] V24, CMS/[facility] V28) XR HIP 2-3 VIEWS RIGHT Routine 04/03/2025 11:13 AM EDT TRANSFUSE RED BLOOD CELLS Routine 04/03/2025 11:13 AM EDT TRANSFUSE RED BLOOD CELLS Routine 04/03/2025 9:28 AM EDT TH AN ENDOTRACHEAL(NO CHARGE) Routine 04/03/2025 9:26 AM EDT NH ARTHROPLASTY ACETABULAR AND PROXIMAL FEMORAL PROSTHETIC REPLACEMENT 04/03/2025 8:50 AM EDT Closed displaced subtrochanteric fracture of right femur, initial encounter ([facility] V24, [facility] V28) Case Notes C-ARM, Earth total hip exeter system with long stem cemented and Irvin plate lateral femoral plate,ambrocio bag TYPE AND SCREEN STAT 04/03/2025 7:23 AM EDT PREPARE RBC STAT 04/03/2025 7:00 AM EDT MAGNESIUM Routine 04/03/2025 6:27 AM EDT BASIC METABOLIC PANEL Routine 04/03/2025 6:27 AM EDT COMPLETE BLOOD COUNT Routine 04/03/2025 6:27 AM EDT PHOSPHORUS Routine 04/03/2025 6:27 AM EDT COMPLETE BLOOD COUNT Routine 04/02/2025 5:41 AM EDT BASIC METABOLIC PANEL Routine 04/02/2025 5:41 AM EDT CBC WITH AUTO DIFFERENTIAL Routine 04/01/2025 3:49 PM EDT CBC AND DIFFERENTIAL Routine 04/01/2025 3:49 PM EDT XR KNEE 1-2 VIEWS RIGHT Routine 04/01/2025 3:26 PM EDT LAVENDER - EDTA Routine 04/01/2025 2:28 PM EDT SST - GOLD Routine 04/01/2025 2:28 PM EDT EXTRA TUBES Routine 04/01/2025 2:28 PM EDT PROTHROMBIN TIME WITH INR STAT 04/01/2025 2:[address] UPPER EXTREMITY W CONTRAST RIGHT STAT 04/01/2025 1:20 PM EDT XR FEMUR 2+ VIEWS RIGHT STAT 04/01/2025 12:20 PM EDT XR HIP 2-3 VIEWS RIGHT STAT 04/01/2025 12:20 PM EDT XR FOREARM 2 VIEWS RIGHT STAT 04/01/2025 12:20 PM EDT XR CHEST 1 VIEW STAT 04/01/2025 12:[address] CERVICAL SPINE WO CONTRAST STAT 04/01/2025 11:[address] HEAD WO CONTRAST STAT 04/01/2025 11:31 AM EDT CBC WITH AUTO DIFFERENTIAL STAT 04/01/2025 11:05 AM EDT CBC AND DIFFERENTIAL STAT 04/01/2025 11:05 AM EDT TROPONIN I HIGH SENSITIVITY STAT 04/01/2025 11:05 AM EDT COMPREHENSIVE METABOLIC PANEL STAT 04/01/2025 11:05 AM EDT ECG 12-LEAD STAT 04/01/2025 10:57 AM EDT CARDIAC HOLTER MONITOR (REPORT GENERATED IN HOUSE) Routine 03/27/2025 2:45 PM EDT Paroxysmal atrial fibrillation (CMS/HCC V24, CMS/HCC V28) TRANSTHORACIC ECHOCARDIOGRAM (TTE) COMPLETE Routine 03/13/2025 3:59 PM EDT Paroxysmal atrial fibrillation (CMS/HCC V24, CMS/HCC V28) XR HIPS 5+ VIEWS WO OR W PELVIS BILAT Routine 03/06/2025 2:13 PM EDT Bilateral hip pain INJECTION TENDON OR LIGAMENT Routine 03/06/2025 2:00 PM EDT Trigger ring finger of right hand LIPID PANEL WITH REFLEX TO DIRECT LDL Routine 11/21/2024 11:32 AM EDT Atrial fibrillation (CMS/HCC V24, CMS/HCC V28) DXA BONE DENSITY STUDY 1+ SITS AXIAL SKEL Routine 05/28/2023 1:42 PM EST Asymptomatic menopausal state from Last 3 Months or Most Recently Relevant to Health Maintenance Results * XR Pelvis 1-2 Views (05/18/2025 2:36 PM EST) Only the most recent of2 resultswithin the time period is included. Anatomical Region Laterality Modality Body, Pelvis Radiographic Alessandra ging 05/19/2025 7:14 AM EST Impressions 05/19/2025 7:19 AM EST Extensive postsurgical changes involving the right femur and hip. Numerous old fractures. -------- FINAL REPORT -------- Dictated By: Ajit Pugh Dictated Date: 05/19/2025 07:14 ET Assigned Physician: Ajit Pugh Reviewed and Electronically Signed By: Ajit Pugh Signed Date: 05/19/2025 07:19 ET Workstation ID: [id number] Transcribed By: Self Edit Transcribed Date: 05/19/2025 [...] Signed Date: 05/19/2025 07:19 ET Workstation ID: [id number] Transcribed By: Self Edit Transcribed Date: 05/19/2025 07:14 ET us Honorio SUMNER IMG XR PROCEDURES Final Res ult * TH AN LMA(NO CHARGE) (05/18/2025 1:37 PM EST) Yolis Monge CRNA - 05/18/2025 1:37 PM EST Yolis Christensen CRNA 05/18/2025 1:37 PM General Information and Staff Patient location during procedure: OR Performed by: Yolis Christensen CRNA Authorized by: Chris Campos, Intubation Airway not difficult Reason: elective Final [...] 05/18/2025 1:08 PMStop Time: 05/18/2025 1:11 PM Chrisdevon Campos DO ANESTHESIA ORDERABLES Final Result * (ABNORMAL) Complete blood count (05/18/2025 6:21 AM EST) Only the most recent of7 resultswithin the time period is included. WBC 8.3 4.8 - 10.8 K/mcL LAB HEMETOLOGY METHOD 05/18/2025 6:56 AM [facility] RBC 3.20(L) 3.80 - 4.80 M/mcL LAB HEMETOLOGY METHOD 05/18/2025 6:56 AM [facility] Hemoglobin 9.3(L) 11.5 - 16.0 g/dL LAB HEMETOLOGY METHOD 05/18/2025 6:56 AM [facility] Hematocrit 30.0(L) 35.0 - 47.0 % LAB HEMETOLOGY METHOD 05/18/2025 6:56 AM [facility] MCV 94.6 79.0 - 98.0 FL LAB HEMETOLOGY METHOD 05/18/2025 6:56 AM [facility] MCH 29.3 27.0 - 32.0 pcg LAB HEMETOLOGY METHOD 05/18/2025 6:56 AM [facility] MCHC 31.0(L) 32.0 - 37.0 g/dL LAB HEMETOLOGY METHOD 05/18/2025 6:56 AM [facility] RDW 16.9(H) 11.0 - 15.0 % LAB HEMETOLOGY METHOD 05/18/2025 6:56 AM [facility] Platelets 441(H) 130 - 400 K/mcL LAB HEMETOLOGY METHOD 05/18/2025 6:56 AM EST [facility] MPV 8.8 7.0 - 11.0 FL LAB HEMETOLOGY METHOD 05/18/2025 6:56 AM EST [facility] NRBC 0.0 <1.0 % LAB HEMETOLOGY METHOD 05/18/2025 6:56 AM EST [facility] NRBC Absolute 0.00 <0.10 K/mcL LAB HEMETOLOGY METHOD 05/18/2025 6:56 AM EST [facility] Blood Venous blood specimen / Unknown Venipuncture / Unknown 05/18/2025 6:21 AM EST 05/18/2025 6:34 AM EST us Kobi Franklin MD LAB BLOOD ORDERABLE S Final Result [facility] [address] [place] [address], [place] [phone] * (ABNORMAL) Magnesium (05/18/2025 6:21 AM EST) Only the most recent of9 resultswithin the time period is included. Magnesium 1.8(L) 1.9 - 2.6 mg/dL 05/18/2025 8:01 AM EST [facility] Blood Venous blood specimen / Unknown Venipuncture / Unknown 05/18/2025 6:21 AM EST 05/18/2025 6:34 AM EST us Kobi Franklin MD LAB BLOOD ORDERABLE S Final Result [facility] [address] [place] [address], [place] [phone] * (ABNORMAL) Basic metabolic panel (05/18/2025 6:21 AM EST) Only the most recent of24 resultswithin the time period is included. Sodium 142 133 - 145 mmol/L 05/18/2025 8:03 AM [facility] Potassium 4.5 3.5 - 5.5 mmol/L 05/18/2025 8:03 AM [facility] Chloride 103 96 - 110 mmol/L 05/18/2025 8:03 AM [facility] CO2 33(H) 21 - 32 mmol/L 05/18/2025 8:03 AM [facility] Anion Gap 6 3 - 11 05/18/2025 8:03 AM [facility] Glucose 82 70 - 100 mg/dL 05/18/2025 8:03 AM [facility] BUN 34(H) 5 - 25 mg/dL 05/18/2025 8:03 AM [facility] Creatinine 0.78 0.50 - 1.10 mg/dL 05/18/2025 8:03 AM [facility] eGFR 76 >=60 mL/min/1. 73m2 05/18/2025 8:03 AM [facility] Comment:Calculation based on the Chronic Kidney Disease Epidemiology Collaboration (CKD-EPI) equation refit without adjustment for race. BUN/Creatinine Ratio 43.6 05/18/2025 8:03 AM [facility] Calcium 8.1(L) 8.5 - 10.5 mg/dL 05/18/2025 8:03 AM [facility] Blood Venous blood specimen / Unknown Venipuncture / Unknown 05/18/2025 6:21 AM EST 05/18/2025 6:34 AM EST Kobi Franklin MD LAB BLOOD ORDERABLE S Final Result [facility] [address] [place] [address], [place] [phone] * SST tube (05/17/2025 8:56 AM EST) Only the most recent of8 resultswithin the time period is included. [facility] Extra Tube Hold for add-ons. 05/17/2025 11:01 AM [facility] Comment:Auto resulted. Blood Venous blood specimen / Unknown Venipuncture / Unknown 05/17/2025 8:56 AM EST 05/17/2025 9:01 AM EST Kobi Franklin MD LAB BLOOD ORDERABLE S Final Result [facility] [address] [place] [address], [place] [phone] * (ABNORMAL) CBC auto differential (05/17/2025 8:56 AM EST) Only the most recent of25 resultswithin the time period is included. [facility] WBC 9.5 4.8 - 10.8 K/mcL LAB HEMETOLOGY METHOD 05/17/2025 9:15 AM [facility] RBC 3.40(L) 3.80 - 4.80 M/mcL LAB HEMETOLOGY METHOD 05/17/2025 9:15 AM [facility] Hemoglobin 9.7(L) 11.5 - 16.0 g/dL LAB HEMETOLOGY METHOD 05/17/2025 9:15 AM [facility] Hematocrit 32.2(L) 35.0 - 47.0 % LAB HEMETOLOGY METHOD 05/17/2025 9:15 AM [facility] MCV 95.8 79.0 - 98.0 FL LAB HEMETOLOGY METHOD 05/17/2025 9:15 AM [facility] MCH 28.9 27.0 - 32.0 pcg LAB HEMETOLOGY METHOD 05/17/2025 9:15 AM [facility] MCHC 30.1(L) 32.0 - 37.0 g/dL LAB HEMETOLOGY METHOD 05/17/2025 9:15 AM [facility] RDW 17.2(H) 11.0 - 15.0 % LAB HEMETOLOGY METHOD 05/17/2025 9:15 AM [facility] Platelets 469(H) 130 - 400 K/mcL LAB HEMETOLOGY METHOD 05/17/2025 9:15 AM [facility] MPV 8.4 7.0 - 11.0 FL LAB HEMETOLOGY METHOD 05/17/2025 9:15 AM [facility] NRBC 0.0 <1.0 % LAB HEMETOLOGY METHOD 05/17/2025 9:15 AM [facility] NRBC Absolute 0.00 <0.10 K/mcL LAB HEMETOLOGY METHOD 05/17/2025 9:15 AM [facility] Neutrophils Relative 74.7 % LAB HEMETOLOGY METHOD 05/17/2025 9:15 AM [facility] Lymphocytes Relative 13.1 % LAB HEMETOLOGY METHOD 05/17/2025 9:15 AM [facility] Monocytes Relative 8.6 % LAB HEMETOLOGY METHOD 05/17/2025 9:15 AM [facility] Eosinophils Relative 2.2 % LAB HEMETOLOGY METHOD 05/17/2025 9:15 AM [facility] Basophils Relative 0.7 % LAB HEMETOLOGY METHOD 05/17/2025 9:15 AM [facility] Immature Granulocytes Relative 0.7 % LAB HEMETOLOGY METHOD 05/17/2025 9:15 AM [facility] Neutrophils Absolute 7.08(H) 1.50 - 7.00 K/mcL LAB HEMETOLOGY METHOD 05/17/2025 9:15 AM EST [facility] Lymphocytes Absolute 1.24 1.00 - 5.00 K/[facility] LAB HEMETOLOGY METHOD 05/17/2025 9:15 AM EST [facility] Monocytes Absolute 0.82 0.20 - 1.00 K/[facility] LAB HEMETOLOGY METHOD 05/17/2025 9:15 AM EST [facility] Eosinophils Absolute 0.21 0.00 - 0.50 K/[facility] LAB HEMETOLOGY METHOD 05/17/2025 9:15 AM EST [facility] Basophils Absolute 0.07 0.00 - 0.20 K/[facility] LAB HEMETOLOGY METHOD 05/17/2025 9:15 AM EST [facility] Immature Granulocytes Absolute 0.07(H) 0.00 - 0.03 K/[facility] LAB HEMETOLOGY METHOD 05/17/2025 9:15 AM EST [facility] Blood Venous blood specimen / Unknown Venipuncture / Unknown 05/17/2025 8:56 AM EST 05/17/2025 9:00 AM EST us Gris Mojica MD LAB BLOOD ORDERABLES Final Resul t [facility] [address] [place] [address], * Phosphorus (05/16/2025 6:31 AM EST) Only the most recent of3 resultswithin the time period is included. Phosphorus 3.3 2.5 - 4.5 mg/dL 05/16/2025 7:17 AM EST [facility] Blood Venous blood specimen / Unknown Venipuncture / Unknown 05/16/2025 6:31 AM EST 05/16/2025 6:39 AM EST us Kobi Devendrabhai Noemi MD LAB BLOOD ORDERABLE S Final Result [facility] [address] [place] [address], [place] [phone] * (ABNORMAL) Urinalysis with reflex microscopic and culture (05/15/2025 4:37 PM EST) Specific [place] Urine 1.017 1.003 - 1.030 LAB URINALYSIS - AUTOMATED METHOD 05/15/2025 6:16 PM [facility] pH, Urine 7.0 5.0 - 8.0 pH LAB URINALYSIS - AUTOMATED METHOD 05/15/2025 6:16 PM [facility] Leukocytes, Urine Trace(A) Negative LAB URINALYSIS - AUTOMATED METHOD 05/15/2025 6:16 PM [facility] Nitrite, Urine Negative Negative LAB URINALYSIS - AUTOMATED METHOD 05/15/2025 6:16 PM [facility] Protein, Urine Negative <=Trace mg/dL LAB URINALYSIS - AUTOMATED METHOD 05/15/2025 6:16 PM [facility] Glucose, Urine Negative Negative mg/dL LAB URINALYSIS - AUTOMATED METHOD 05/15/2025 6:16 PM [facility] Ketones, Urine Negative Negative mg/dL LAB URINALYSIS - AUTOMATED METHOD 05/15/2025 6:16 PM [facility] Urobilinogen, Urine 0.2 0.2 - 1.0 mg/dL LAB URINALYSIS - AUTOMATED METHOD 05/15/2025 6:16 PM [facility] Bilirubin, Urine Negative Negative LAB URINALYSIS - AUTOMATED METHOD 05/15/2025 6:16 PM [facility] Blood, Urine Negative Negative LAB URINALYSIS - AUTOMATED METHOD 05/15/2025 6:16 PM [facility] RBC, Urine 0 0 - 4 /HPF LAB URINALYSIS - AUTOMATED METHOD 05/15/2025 6:16 PM [facility] WBC, Urine 5(H) 0 - 4 /HPF LAB URINALYSIS - AUTOMATED METHOD 05/15/2025 6:16 PM [facility] Squamous Epithelial, Urine 20 0 - 60 /LPF LAB URINALYSIS - AUTOMATED METHOD 05/15/2025 6:16 PM [facility] Bacteria, Urine Negative Negative /HPF LAB URINALYSIS - AUTOMATED METHOD 05/15/2025 6:16 PM [facility] Hyaline Casts, Urine 0 0 - 3 /LPF LAB URINALYSIS - AUTOMATED METHOD 05/15/2025 6:16 PM [facility] Urine Urine specimen obtained by clean catch procedure / Unknown Non-blood Collection / Unknown 05/15/2025 4:37 PM EST 05/15/2025 5:26 PM EST [facility] URINE ORDERABLES Final Resul t Performing Organization Address City/[facility]/ZIP Co de Phone Number [facility] [address] [place] [address], [place] [phone] * Solorzano urine culture tube (05/15/2025 4:37 PM EST) Extra Tube Hold for add-ons. 05/15/2025 7:01 PM [facility] Comment:Auto resulted. Urine Urine specimen obtained by clean catch procedure / Unknown Non-blood Collection / Unknown 05/15/2025 4:37 PM EST 05/15/2025 5:26 PM EST [facility] URINE ORDERABLES Final Resul t [facility] [address] [place] [address], [place] [phone] * Culture urine (05/15/2025 4:37 PM EST) Culture, Urine <10,000 cfu/ml, insignificant count, no further workup. 05/16/2025 2:41 PM EST [facility] Urine Urine specimen obtained by clean catch procedure / Unknown Non-blood Collection / Unknown 05/15/2025 4:37 PM EST 05/15/2025 6:16 PM EST us Kamilla [facility]NER LAB MICROBIOLOGY - GENERAL ORDER NISH Final Result [facility] [address] [place] [address], * XR Femur 1 View Right (05/13/2025 11:58 AM EST) Anatomical Region Laterality Modality Lower Extremities, Femur Right Radiogr aphic Imaging 05/13/2025 4:08 PM EST Impressions 05/13/2025 4:13 PM EST Impression: New postop changes in the distal femur, with 2 additional sideplates placed, traversing the acute distal femoral diaphyseal fracture. Alignment of the major fracture fragments is anatomic. Romeo SUMNER ([id number]) -------- FINAL REPORT -------- Dictated By: Carmen Prado Dictated Date: 05/13/2025 16:08 ET Assigned Physician: Carmen Prado Reviewed and Electronically Signed By: Carmen Prado Signed Date: 05/13/2025 16:13 ET Workstation ID: [id number] Transcribed By: Self Edit Transcribed Date: 05/13/2025 [...] femur from 11:40 AM are submitted from [facility]. The patient has undergone interim open reduction [...] major fracture fragments is anatomic. Romeo SUMNER ([id number]) -------- FINAL REPORT -------- Dictated By: Carmen Prado Dictated Date: 05/13/2025 16:08 ET Assigned Physician: Carmen Prado Reviewed and Electronically Signed By: Carmen Prado Signed Date: 05/13/2025 16:13 ET Workstation ID: [id number] Transcribed By: Self Edit Transcribed Date: 05/13/2025 [...] Signed Date: 05/13/2025 13:19 ET Workstation ID: [id number] Transcribed By: Self Edit Transcribed Date: 05/13/2025 [...] Signed Date: 05/13/2025 13:19 ET Workstation ID: [id number] Transcribed By: Self Edit Transcribed Date: 05/13/2025 13:18 ET us Adelina SUMNER IMG XR PROCEDURES Final Resu lt * (ABNORMAL) Culture wound deep (05/13/2025 10:25 AM EST) Only the most recent of6 resultswithin the time period is included. Culture, Wound Enterobacter cloacae complex(A) SAUL 05/16/2025 9:47 AM EST [facility] Comment: The organism value for this result has been updated. These results have been appended to the previously preliminary verified report. This is an edited result. Previous organism was Gram negative bacilli on 05/14/2025 at 1332 EST. Culture, Wound Citrobacter sedlakii(A) SAUL 05/16/2025 9:47 AM EST [facility] Comment: The organism value for this result has been updated. These results have been appended to the previously preliminary verified report. Gram Stain Result Few Polymorphonuclear leukocytes 05/16/2025 9:47 AM EST [facility] Gram Stain Result No epithelial cells seen 05/16/2025 9:47 AM EST [facility] Gram Stain Result No organisms seen 05/16/2025 9:47 AM [facility] Swab Right hip region [...] MICROBIOLOGY - GENERAL ORDER NISH Final Result [facility] [address] [place] [address], * TH AN LMA(NO CHARGE) (05/13/2025 10:24 AM EST) Rob Muñiz SRNA - 05/13/2025 10:24 AM EST KYLAH Fox 05/13/2025 10:27 AM General Information and Staff Patient location during procedure: OR Anesthesiologist: Nik Dash MD Other anesthesia staff: KYLAH Fox Performed: anesthesiologist Performed by: KYLAH Fox Authorized by: Nik Dash MD Intubation Airway not difficult Reason: elective Final Airway Details Ventilation between attempts: BVM LMA Size: 4 LMA Type: Unique LMA Seal Pressure: Final airway type: LMA Indications and Patient Condition Indications for airway management: anesthesia Sedation level: Yes Preoxygenated: yesSoft Tissue Damage: No Dentition Unchanged: Yes Patient position: sniffing Mask difficulty assessment: 1 - vent by mask Nik Dash MD ANESTHESIA ORDERABLES Final Re sult * Transfuse RBC, Leukoreduced (05/09/2025 9:42 PM EST) Only the most recent of6 resultswithin the time period is included. Solitario Barrios MD BLOOD TRANSFUSION ORDERABLES Final Result * Type and screen (05/09/2025 1:41 PM EST) Only the most recent of6 resultswithin the time period is included. ABO Group O 05/09/2025 3:07 PM [facility] Rh Type Positive 05/09/2025 3:07 PM [facility] Antibody Screen Negative 05/09/2025 3:07 PM [facility] Blood Venous blood specimen / Unknown Venipuncture / Unknown 05/09/2025 1:41 PM EST 05/09/2025 1:50 PM EST Solitario Barrios MD LAB BLOOD BANK TEST ORDERABL ES Final Result [facility] [address] [place] [address], * Prepare RBC: 1 Units, Leukoreduced (05/09/2025 1:28 PM EST) Only the most recent of6 resultswithin the time period is included. Product Code [id number] 05/09/2025 3:57 PM [facility] Unit Number [id number] 05/09/20 3:57 PM [facility] Crossmatch Compatible 05/09/2025 3:09 PM [facility] Dispense Status Transfused 05/09/2025 3:57 PM [facility] Unit ABO Rh ONEG 05/09/2025 3:57 PM [facility] Unit Expiration Date Time [id number] 05/09/2025 3:57 PM [facility] Unit Blood Type 9500 05/09/2025 3:57 PM [facility] Blood Venous blood specimen / Unknown 05/09/2025 1:28 PM EST 05/09/2025 1:50 PM EST Solitario Barrios MD BLOOD BANK PRODUCT ORDERABLE S Final Result Performing Organization Address [facility]/ZIP Co de Phone Number [facility] [address] [place] [address], * POCT Glucose, blood (05/09/2025 7:56 AM EST) Glucose POCT 88 70 - 100 mg/dL 05/09/2025 7:56 AM EST [facility] Blood Capillary blood specimen / Unknown 05/09/2025 7:56 AM EST 05/09/2025 7:58 AM EST Solitario Barrios MD LAB POINT OF CARE TE ST DOCKED DEVICE UNSOLICITED RESULTS Final Result Performing Organization Address [facility] Co de Phone Number [facility] [address] [place] [address], * XR Femur 2+ Views Right (05/05/2025 1:00 PM EST) Only the most recent of4 resultswithin the time period is included. Anatomical Region Laterality Modality Lower Extremities, Femur [...] Signed Date: 05/06/2025 07:48 ET Workstation ID: [id number] Transcribed By: Self Edit Transcribed Date: 05/06/2025 [...] Signed Date: 05/06/2025 07:48 ET Workstation ID: [id number] Transcribed By: Self Edit Transcribed Date: 05/06/2025 07:45 ET us Brian Baeza MD IMG XR PROCEDURES Final Resul t * TH AN ENDOTRACHEAL(NO CHARGE) (05/05/2025 12:42 PM EST) Narrative Yolis Christensen CRNA - 05/05/2025 12:42 PM EST Yolis Christensen CRNA 05/05/2025 12:43 PM General Information and Staff Patient location during procedure: OR Performed by: Yolis Christensen CRNA Authorized by: Wilmer Comer MD Intubation Airway not difficult Reason: elective Final Airway Details Successful airway: ETT Cuffed: yes Successful intubation technique: direct laryngoscopy Adjuncts used in placement: intubating stylet Endotracheal tube insertion site: oral Blade: Corrine Blade size: #3 ETT size (mm): 7.0 Cormack-Lehane Classification: grade I - full view of glottis Placement verified by: chest auscultation and capnometry Measured from: gums ETT to gums (cm): 21 Ventilation between attempts: none Final airway type: endotracheal airway Indications and Patient Condition Indications for airway management: anesthesia Sedation level: Yes Preoxygenated: yesSoft Tissue Damage: No Dentition Unchanged: Yes Patient position: sniffing MILS not maintained throughout Mask difficulty assessment: 2 - vent by mask + OA or adjuvant +/- NMBA Start Time: 05/05/2025 11:37 AMStop Time: 05/05/2025 11:40 AM us Wilmer Comer MD ANESTHESIA ORDERABLES Final Re sult * Prothrombin time with INR (05/04/2025 7:00 AM EST) Only the most recent of3 resultswithin the time period is included. Protime 13.8 10.6 - 13.9 sec LAB COAGULATION METHOD 05/04/2025 7:34 AM EST [facility] INR 1.1 LAB COAGULATION METHOD 05/04/2025 7:34 AM EST [facility] Blood Venous blood specimen / Unknown Venipuncture / Unknown 05/04/2025 7:00 AM EST 05/04/2025 7:15 AM EST us Kitty Castellanos MD LAB BLOOD ORDERABLES Final Resu lt [facility] [address] [place] [address], [place] [phone] * (ABNORMAL) Comprehensive metabolic panel (05/04/2025 7:00 AM EST) Only the most recent of4 resultswithin the time period is included. Sodium 140 133 - 145 mmol/L LAB CHEMISTRY METHOD 05/04/2025 8:01 AM [facility] Potassium 3.8 3.5 - 5.5 mmol/L LAB CHEMISTRY METHOD 05/04/2025 8:01 AM [facility] Chloride 106 96 - 110 mmol/L LAB CHEMISTRY METHOD 05/04/2025 8:01 AM [facility] CO2 30 21 - 32 mmol/L LAB CHEMISTRY METHOD 05/04/2025 8:01 AM [facility] Anion Gap 4 3 - 11 LAB CHEMISTRY METHOD 05/04/2025 8:01 AM [facility] Glucose 92 70 - 100 mg/dL LAB CHEMISTRY METHOD 05/04/2025 8:01 AM [facility] BUN 14 5 - 25 mg/dL LAB CHEMISTRY METHOD 05/04/2025 8:01 AM [facility] Creatinine 0.60 0.50 - 1.10 mg/dL LAB CHEMISTRY METHOD 05/04/2025 8:01 AM [facility] eGFR 90 >=60 mL/min/1. 73m2 LAB CHEMISTRY METHOD 05/04/2025 8:01 AM [facility] Comment:Calculation based on the Chronic Kidney Disease Epidemiology Collaboration (CKD-EPI) equation refit without adjustment for race. BUN/Creatinine Ratio 23.3 LAB CHEMISTRY METHOD 05/04/2025 8:01 AM [facility] Calcium 8.5 8.5 - 10.5 mg/dL LAB CHEMISTRY METHOD 05/04/2025 8:01 AM [facility] AST (SGOT) 13 10 - 42 unit/L LAB CHEMISTRY METHOD 05/04/2025 8:01 AM [facility] ALT (SGPT) 15 10 - 60 unit/L LAB CHEMISTRY METHOD 05/04/2025 8:01 AM [facility] Alkaline Phosphatase 77 42 - 121 unit/L LAB CHEMISTRY METHOD 05/04/2025 8:01 AM [facility] Total Protein 5.2(L) 6.0 - 8.0 g/dL LAB CHEMISTRY METHOD 05/04/2025 8:01 AM [facility] Albumin 2.5(L) 3.2 - 5.0 g/dL LAB CHEMISTRY METHOD 05/04/2025 8:01 AM [facility] Total Bilirubin 0.7 0.0 - 1.4 mg/dL LAB CHEMISTRY METHOD 05/04/2025 8:01 AM [facility] Blood Venous blood specimen / Unknown Venipuncture / Unknown 05/04/2025 7:00 AM EST 05/04/2025 7:15 AM EST us Kitty Castellanos MD LAB BLOOD ORDERABLES Final Resu lt [facility] [address] [place] [address], [place] [phone] * (ABNORMAL) Hemoglobin and hematocrit (05/03/2025 6:48 AM EST) Only the most recent of6 resultswithin the time period is included. Hemoglobin 8.5(L) 11.5 - 16.0 g/dL LAB HEMETOLOGY METHOD 05/03/2025 7:31 AM [facility] Hematocrit 27.2(L) 35.0 - 47.0 % LAB HEMETOLOGY METHOD 05/03/2025 7:31 AM [facility] Blood Venous blood specimen / Unknown Venipuncture / Unknown 05/03/2025 6:48 AM EST 05/03/2025 7:10 AM EST us Kitty Castellanos MD LAB BLOOD ORDERABLES Final Resu lt Performing Organization Address City/[facility]/ZIP Co de Phone Number [facility] [address] [place] [address], [place] [phone] * (ABNORMAL) Iron and TIBC (05/02/2025 6:48 AM EST) Iron 22(L) 40 - 150 mcg/dL LAB CHEMISTRY METHOD 05/03/2025 1:58 AM EST [facility] TIBC 232(L) 250 - 450 mcg/dL LAB CHEMISTRY METHOD 05/03/2025 1:58 AM EST [facility] Iron Saturation 9(L) 15 - 50 % LAB CHEMISTRY METHOD 05/03/2025 1:58 AM EST [facility] Blood Venous blood specimen / Unknown Venipuncture / Unknown 05/02/2025 6:48 AM EST 05/02/2025 6:53 AM EST Kitty Castellanos MD LAB BLOOD ORDERABLES Final Resu lt Performing Organization Address [facility]/ZIP Co de Phone Number [facility] [address] [place] [address], [place] [phone] * (ABNORMAL) Vitamin D 25 hydroxy (05/02/2025 6:48 AM EST) Vit D, 25-Hydroxy 21.9(L) 30.0 - 80.0 ng/mL LAB CHEMISTRY METHOD 05/02/2025 4:07 PM EST [facility] Blood Venous blood specimen / Unknown Venipuncture / Unknown 05/02/2025 6:48 AM EST 05/02/2025 6:53 AM EST us Kitty Castellanos MD LAB BLOOD ORDERABLES Final Resu lt [facility] [address] [place] [address], [place] [phone] * Vitamin B12 (05/02/2025 6:48 AM EST) Vitamin B-12 434 250 - 900 pcg/mL LAB CHEMISTRY METHOD 05/02/2025 3:55 PM EST [facility] Blood Venous blood specimen / Unknown Venipuncture / Unknown 05/02/2025 6:48 AM EST 05/02/2025 6:53 AM EST us Kitty Castellanos MD LAB BLOOD ORDERABLES Final Resu lt [facility] [address] [place] [address], * XR Knee 1-2 Views Right (05/01/2025 3:46 PM EST) Only the most recent of2 resultswithin the time period is included. Anatomical Region Laterality Modality Lower Extremities, Knee [...] Signed Date: 05/01/2025 16:39 ET Workstation ID: [id number] Transcribed By: Self Edit Transcribed Date: 05/01/2025 [...] Signed Date: 05/01/2025 16:39 ET Workstation ID: [id number] Transcribed By: Self Edit Transcribed Date: 05/01/2025 16:39 ET Nik Vogt MD IMG XR PROCEDURES Final Result * XR Hip 2-3 Views Right (05/01/2025 3:46 PM EST) Only the most recent of3 resultswithin the time period is included. Anatomical Region Laterality Modality Lower Extremities, Hip Right Radiograp hic Imaging 05/01/2025 4:37 PM EST Impressions 05/01/2025 4:38 PM EST FINDINGS/IMPRESSION: Recent postsurgical changes of the right femur unchanged from prior examination and in anatomic alignment. Chronic pelvic fracture deformities. Degenerative changes of the spine. -------- FINAL REPORT -------- Dictated By: Henry Forrester Dictated Date: 05/01/2025 16:37 ET Assigned Physician: Henry oFrrester Reviewed and Electronically Signed By: Henry Forrester Signed Date: 05/01/2025 16:38 ET Workstation ID: [id number] Transcribed By: Self Edit Transcribed Date: 05/01/2025 [...] Signed Date: 05/01/2025 16:38 ET Workstation ID: [id number] Transcribed By: Self Edit Transcribed Date: 05/01/2025 16:37 ET us Nik Vogt MD IMG XR PROCEDURES Final Result * ECG-Annotated (04/21/2025) Only the most recent of2 resultswithin the time period is included. us Provider Onbase ECG ORDERABLES Final Result * TH AN LMA(NO CHARGE) (04/15/2025 8:11 AM EDT) Yanna Rodriguez MD - 04/15/2025 8:11 AM EDT Yanna Mujica MD 04/15/2025 8:13 AM General Information and Staff Patient location during procedure: OR Anesthesiologist: Yanna Mujica MD Performed: anesthesiologist Performed by: Yanna Mujica MD Authorized by: Yanna Mujica MD Intubation Reason: elective Final Airway Details LMA Size: 4 LMA Type: Classic LMA Seal Pressure: Final airway type: LMA Indications and Patient Condition Indications for airway management: anesthesia Sedation level: Yes Preoxygenated: yesSoft Tissue Damage: No Dentition Unchanged: Yes Patient position: neutral Mask difficulty assessment: 1 - vent by mask Start Time: 04/15/2025 7:56 AMStop Time: 04/15/2025 7:56 AM us Yanna Mujica MD ANESTHESIA ORDERABLES Fin al Result * TH AN LMA(NO CHARGE) (04/13/2025 1:50 PM EDT) Fadumo Gill MD - 04/13/2025 1:50 PM EDT Fadumo Dockery MD 04/13/2025 1:51 PM General Information and Staff Patient location during procedure: OR Anesthesiologist: Fadumo Dockery MD Performed: anesthesiologist Performed by: Fadumo Dockery MD Authorized by: Fadumo Dockery MD Intubation Reason: elective Final Airway Details LMA Size: 4 LMA Type: Unique LMA Seal Pressure: Final airway type: LMA Indications and Patient Condition Indications for airway management: anesthesia Sedation level: Yes Preoxygenated: yesSoft Tissue Damage: No Dentition Unchanged: Yes Patient position: neutral Mask difficulty assessment: 1 - vent by mask Start Time: 04/13/2025 1:32 PMStop Time: 04/13/2025 1:34 PM us Fadumo Dockery MD ANESTHESIA ORDERABLES Edited Result - Final * Culture anaerobic with gram stain (04/10/2025 8:03 AM EDT) Only the most recent of3 resultswithin the time period is included. Culture, Anaerobic No Growth of Anaerobes. 04/15/2025 8:04 AM EDT [facility] Gram Stain Result Refer to Aerobic culture for gram stain results. 04/15/2025 8:04 AM EDT [facility] Swab Structure of right thigh / Unknown 04/10/2025 8:03 AM EDT 04/10/2025 9:06 AM EDT us Gris Mojica MD LAB MICROBIOLOGY - GENERAL ORDER NISH Final Result [facility] [address] [place] [address], * TH AN ENDOTRACHEAL(NO CHARGE) (04/10/2025 7:51 AM EDT) Ludy Eden CRNA - 04/10/2025 7:51 AM EDT Ludy Hoff CRNA 04/10/2025 7:52 AM General Information and Staff Patient location during procedure: OR Anesthesiologist: Wilmer Comer MD Resident/ASSOCIATE JUSTICE: Ludy Hoff CRNA Performed: resident/ASSOCIATE JUSTICE/CAA Performed by: Ludy Hoff CRNA Authorized by: Wilmer Comer MD Intubation Airway not difficult Reason: elective Final Airway Details Successful airway: ETT Cuffed: yes Successful intubation technique: direct laryngoscopy Endotracheal tube insertion site: oral Blade: Corrine Blade size: #3 ETT size (mm): 7.0 Cormack-Lehane Classification: grade I - full view of glottis Placement verified by: chest auscultation and capnometry Measured from: lips ETT to lips (cm): 21 Final airway type: endotracheal airway Indications and Patient Condition Indications for airway management: anesthesia Sedation level: Yes Preoxygenated: yesSoft Tissue Damage: No Dentition Unchanged: Yes Patient position: sniffing Mask difficulty assessment: 1 - vent by mask Start Time: 04/10/2025 7:51 AMStop Time: 04/10/2025 7:51 AM us Wilmer Comer MD ANESTHESIA ORDERABLES Final Re sult * CT Lower Extremity w Contrast Right (04/09/2025 11:30 AM EDT) Anatomical Region Laterality Modality Lower Extremities Right Computed Tomog destini 04/09/2025 11:4 8 AM EDT Impressions 04/09/2025 12:05 PM EDT Severe artifact limits the study. I have a low level of confidence that active extravasation would be detected. No definite active extravasation from the external iliac, common femoral, superficial femoral or popliteal artery on the right. Extensive soft tissue stranding. There may be a hematoma associated with the gluteus and buttock soft tissues. Sharp bone fragments in the soft tissues medially close to the neurovascular bundle. Blueprint protocol was not utilized -------- FINAL REPORT -------- Dictated By: Ajit Pugh Dictated Date: 04/09/2025 11:48 ET Assigned Physician: Ajit Pugh Reviewed and Electronically Signed By: Ajit Pugh Signed Date: 04/09/2025 12:05 ET Workstation ID: [id number] Transcribed By: Self Edit Transcribed Date: 04/09/2025 11:48 ET Narrative 04/09/2025 12:05 PM EDT EXAMINATION: CT LOWER EXTREMITY WITHOUT CONTRAST, RIGHT CLINICAL INFORMATION: Recent right hip replacement. Bleeding from wound. COMPARISON: None TECHNIQUE: Multidetector CT. Examination of the right lower extremity. Examination of the extremity with IV contrast. Reformatting in the coronal and sagittal planes. 3-D postprocessing was not performed. Blueprint protocol was not utilized DLP: 476 mGy-cm Dose optimization was performed including the use of low-dose iterative reconstruction technique with automatic exposure control based on patient size. Type of contrast: ISOVUE 370 Volume of IV contrast: 90 mL Volume of contrast discarded: 0 mL FINDINGS: The study includes most of the right pelvis, region of right hip and mid and distal thigh but not the level of the knee. There is severe metallic artifact. This limits detail. Areas of active bleeding might not be detectable. ALIGNMENT: There has been hip replacement. There has been extensive instrumentation. ACUTE FRACTURE: There has been extensive instrumentation for repair of the right femur. There are chronic deformities of the pubic rami consistent with old fractures. There are sharp bone fragments in the soft tissues adjacent to the right proximal femur. One of these bone fragments extends close to the superficial femoral artery and profunda femoral artery (3/112). There is cement or bone fragment in the soft tissues medially at the subtrochanteric level. There are small bone fragments perhaps related to screw fixation. At least one of the screws in the mid femur extends beyond the medial cortex. One of the screws projects beyond the anterior distal femoral cortex. FOCAL LESION: There is some lucency around the acetabular component which contains some opaque cement. PERIOSTEAL: No aggressive periosteal new bone. JOINTS: As described there is abnormality around the acetabular component SOFT TISSUES: Severe artifact. Marked skin thickening and subcutaneous stranding. There is abnormal soft tissue in the right gluteal region with some soft tissue gas which may be postoperative. I have a low-level of confidence that active bleeding would BE identified. There is no evidence of a large pelvic hematoma. Procedure Note Ajit Pugh MD - 04/09/2025 EXAMINATION: CT LOWER EXTREMITY WITHOUT CONTRAST, RIGHT CLINICAL INFORMATION: Recent right hip replacement. Bleeding from wound. COMPARISON: None TECHNIQUE: Multidetector CT. Examination of the right lower extremity. Examination of the extremity with IV contrast. Reformatting in the coronal and sagittal planes. 3-D postprocessing was not performed. Blueprint protocol was not utilized DLP: 476 mGy-cm Dose optimization was performed including the use of low-dose iterativereconstruction technique with automatic exposure control based on patientsize. Type of contrast: ISOVUE 370 Volume of IV contrast: 90 mL Volume of contrast discarded: 0 mL FINDINGS: The study includes most of the right pelvis, region of right hip and midand distal thigh but not the level of the knee. There is severe metallic artifact. This limits detail. Areas of activebleeding might not be detectable. ALIGNMENT: There has been hip replacement. There has been extensiveinstrumentation. ACUTE FRACTURE: There has been extensive instrumentation for repair of theright femur. There are chronic deformities of the pubic rami consistent with oldfractures. There are sharp bone fragments in the soft tissues adjacent to the rightproximal femur. One of these bone fragments extends close to thesuperficial femoral artery and profunda femoral artery (3/112). There is cement or bone fragment in the soft tissues medially at thesubtrochanteric level. There are small bone fragments perhaps related toscrew fixation. At least one of the screws in the mid femur extends beyondthe medial cortex. One of the screws projects beyond the anterior distalfemoral cortex. FOCAL LESION: There is some lucency around the acetabular component whichcontains some opaque cement. PERIOSTEAL: No aggressive periosteal new bone. JOINTS: As described there is abnormality around the acetabular component SOFT TISSUES: Severe artifact. Marked skin thickening and subcutaneousstranding. There is abnormal soft tissue in the right gluteal region withsome soft tissue gas which may be postoperative. I have a low-level of confidence that active bleeding would BEidentified. There is no evidence of a large pelvic hematoma. IMPRESSION: Severe artifact limits the study. I have a low level of confidence thatactive extravasation would be detected. No definite active extravasation from the external iliac, common femoral,superficial femoral or popliteal artery on the right. Extensive soft tissue stranding. There may be a hematoma associated withthe gluteus and buttock soft tissues. Sharp bone fragments in the soft tissues medially close to theneurovascular bundle. Blueprint protocol was not utilized -------- FINAL REPORT -------- Dictated By: Ajit Pugh Dictated Date: 04/09/2025 11:48 ET Assigned Physician: Ajit Pugh Reviewed and Electronically Signed By: Ajit Pugh Signed Date: 04/09/2025 12:05 ET Workstation ID: [id number] Transcribed By: Self Edit Transcribed Date: 04/09/2025 11:48 ET Arvin Alejandro MD IMG CT PROCEDURES Final Result * (ABNORMAL) C-reactive protein (04/09/2025 9:48 AM EDT) [facility] C-Reactive Protein 10.90(H) <=0.50 mg/dL LAB CHEMISTRY METHOD 04/09/2025 1:25 PM EDT [facility] Blood Venous blood specimen / Unknown Venipuncture / Unknown 04/09/2025 9:48 AM EDT 04/09/2025 10:26 AM EDT Honorio SUMNER LAB BLOOD ORDERABLES Final Result [facility] [address] [place] [address], [place] [phone] * ECG 12 lead (04/09/2025 9:14 AM EDT) Only the most recent of2 resultswithin the time period is included. [facility] Ventricular Rate ECG 132 BPM GEMUSE QRS Duration 98 ms GEMUSE Q-T Interval 264 ms GEMUSE QTc 391 ms GEMUSE R [place] 34 degrees GEMUSE T [place] 77 degrees GEMUSE ECG Interpretation Atrial fibrillation with rapid ventricular response with premature ventricular or aberrantly conducted complexes Moderate voltage criteria for LVH, may be normal variant ( Sokolow-Gurrola , Essie product ) ST and T wave abnormality, consider lateral ischemia When compared with ECG of 01-APR-2025 10:57, T wave inversion more evident in Lateral leads Confirmed by ROQUE ROSSI ([id number]) on 04/09/2025 8:59:17 PM GEMUSE 04/09/2025 9:14 AM EDT 04/09/2025 8:59 PM EDT Arvin Alejandro MD ECG ORDERABLES Final Result GEMUSE * ECG-Outside (04/06/2025) Zurdo Villafana MD ECG ORDERABLES Final Result * Tissue exam (04/03/2025 11:35 AM EDT) Final Diagnosis Joint, right femoral head (arthroplasty): -CONSISTENT WITH FRACTURE 04/09/2025 1:24 PM EDT [facility] at 1324 EDT Gross Description A. Hip, Right, femoral head: Labeled hip R . Received in blood tinged formalin is a 5.5 x 5.0 x 4.5 cm femoral head, with a 0.7 cm in length segment of intact femoral neck. A fracture is not identified. A small amount of synovium is attached. The articular surface is red and coarsely granular to white and eburnated. Peripheral osteophyte formation is present. The cut surfaces of the femoral head are yellow and indurated, with a pale-yellow stippling. There is no separately received tissue. The articular surface is inked black. Auto Headlight Mechanic sections are submitted in one cassette, three pieces, following decalcification. Additional entry level marketing representative sections are submitted in cassettes 2-4, one piece each, following decalcification. TS 04/09/2025 1:24 PM EDT [facility] Disclaimer Unless otherwise specified, all tissue is 10% NB formalin fixed and paraffin embedded. 04/09/2025 1:24 PM EDT [facility] Bone Right hip region structure / Unknown 04/03/2025 11:35 AM EDT 04/03/2025 1:35 PM EDT us Brian Baeza MD LAB PATHOLOGY ORDERABLES Izzy l Result [facility] [address] [place] [address], * TH AN ENDOTRACHEAL(NO CHARGE) (04/03/2025 9:26 AM EDT) Narrative Rosio Jose CRNA - 04/03/2025 9:26 AM EDT Rsoio Jose CRNA 04/03/2025 9:26 AM General Information and Staff Patient location during procedure: OR Resident/ASSOCIATE JUSTICE: Rosio Jose CRNA Performed: resident/ASSOCIATE JUSTICE/CAA Performed by: Rosio Jose CRNA Authorized by: Marcos Trujillo DO Intubation Airway not difficult Reason: elective Final Airway Details Successful airway: ETT Successful intubation technique: direct laryngoscopy Adjuncts used in placement: intubating stylet Blade: Corrine Blade size: #3 ETT size (mm): 7.0 Cormack-Lehane Classification: grade I - full view of glottis Placement verified by: chest auscultation and capnometry Measured from: lips ETT to lips (cm): 20 Final airway type: endotracheal airway Indications and Patient Condition Indications for airway management: anesthesia and airway protection Sedation level: Yes Preoxygenated: yesSoft Tissue Damage: No Dentition Unchanged: Yes Patient position: sniffing MILS maintained throughout Mask difficulty assessment: 1 - vent by mask Marcos Trujillo DO ANESTHESIA ORDERABLES Final Res ult * Lavender tube (04/01/2025 2:28 PM EDT) Extra Tube Hold for add-ons. 04/01/2025 4:01 PM EDT [facility] Comment:Auto resulted. Blood Venous blood specimen / Unknown 04/01/2025 2:28 PM EDT 04/01/2025 2:36 PM EDT Ean Hoffman MD LAB BLOOD ORDERABLES Final Res ult [facility] [address] [place] [address], [place] [phone] * CT Upper Extremity w Contrast Right (04/01/2025 1:20 PM EDT) Anatomical Region Laterality Modality Upper Extremities, Humerus Right Compu myra Tomography 04/01/2025 1:41 PM EDT Impressions 04/01/2025 1:46 PM EDT LARGE FOREARM HEMATOMA WITH ACTIVE EXTRAVASATION. Findings communicated to Dr. Hoffman at approximately 1:41PM . -------- FINAL REPORT -------- Dictated By: Henry Forrester Dictated Date: 04/01/2025 13:41 ET Assigned Physician: Henry Forrester Reviewed and Electronically Signed By: Henry Forrester Signed Date: 04/01/2025 13:46 ET Workstation ID: [id number] Transcribed By: Self Edit Transcribed Date: 04/01/2025 13:41 ET Narrative 04/01/2025 1:46 PM EDT PROCEDURE: CT UPPER EXTREMITY W CONTRAST RIGHT INDICATION: Large hematoma, getting larger TECHNIQUE: CT performed of the right forearm per protocol with the administration of IV contrast, ISOVUE-370 90 mL The examination was performed utilizing dose reduction techniques. Total DLP 1266 COMPARISON: No priors available. FINDINGS: Dedicated CT examination performed demonstrates no forearm fracture or dislocation. Extensive degenerative changes both wrist and elbow with prior avulsion fragment/enthesopathic changes in the distal upper arm is not fully evaluated on the current exam. Evaluation of the soft tissues demonstrates a large hematoma forearm measuring 4.3 x 2.8 x 7.3 cm with active extravasation. Procedure Note Henry Forrseter MD - 04/01/2025 PROCEDURE: CT UPPER EXTREMITY W CONTRAST RIGHT INDICATION: Large hematoma, getting larger TECHNIQUE: CT performed of the right forearm per protocol with theadministration of IV contrast, ISOVUE-370 90 mL The examination was performed utilizing dose reduction techniques. TotalDLP 1266 COMPARISON: No priors available. FINDINGS: Dedicated CT examination performed demonstrates no forearmfracture or dislocation. Extensive degenerative changes both wrist andelbow with prior avulsion fragment/enthesopathic changes in the distalupper arm is not fully evaluated on the current exam. Evaluation of the soft tissues demonstrates a large hematoma forearmmeasuring 4.3 x 2.8 x 7.3 cm with active extravasation. IMPRESSION: LARGE FOREARM HEMATOMA WITH ACTIVE EXTRAVASATION. Findings communicated to Dr. Hoffman at approximately 1:41PM . -------- FINAL REPORT -------- Dictated By: Henry Forrester Dictated Date: 04/01/2025 13:41 ET Assigned Physician: Henry Forrester Reviewed and Electronically Signed By: Henry Forrester Signed Date: 04/01/2025 13:46 ET Workstation ID: [id number] Transcribed By: Self Edit Transcribed Date: 04/01/2025 13:41 ET Ean Hoffman MD IMG CT PROCEDURES Final Result * XR Forearm 2 Views Right (04/01/2025 12:20 PM EDT) Anatomical Region Laterality Modality Upper Extremities, Forearm Right Radio graphic Imaging 04/01/2025 12:3 6 PM EDT Impressions 04/01/2025 12:37 PM EDT FINDINGS/IMPRESSION: There is prominent soft tissue swelling of the proximal forearm with age-indeterminate chronic appearing fracture fragment in the dorsal aspect of the distal humerus, correlate with clinical history and exam. -------- FINAL REPORT -------- Dictated By: Henry Forrester Dictated Date: 04/01/2025 12:36 ET Assigned Physician: Henry Forrester Reviewed and Electronically Signed By: Henry Forrester Signed Date: 04/01/2025 12:37 ET Workstation ID: [id number] Transcribed By: Self Edit Transcribed Date: 04/01/2025 12:36 ET Narrative 04/01/2025 12:37 PM EDT XR FOREARM 2 VIEWS RIGHT INDICATION: GLF, deformity vs large hematoma TECHNIQUE: XR FOREARM 2 VIEWS RIGHT COMPARISON: None Procedure Note Henry Forrester MD - 04/01/2025 XR FOREARM 2 VIEWS RIGHT INDICATION: GLF, deformity vs large hematoma TECHNIQUE: XR FOREARM 2 VIEWS RIGHT COMPARISON: None IMPRESSION: FINDINGS/IMPRESSION: There is prominent soft tissue swelling of theproximal forearm with age-indeterminate chronic appearing fracturefragment in the dorsal aspect of the distal humerus, correlate withclinical history and exam. -------- FINAL REPORT -------- Dictated By: Henry Forrester Dictated Date: 04/01/2025 12:36 ET Assigned Physician: Henry Forrester Reviewed and Electronically Signed By: Henry Forrester Signed Date: 04/01/2025 12:37 ET Workstation ID: [id number] Transcribed By: Self Edit Transcribed Date: 04/01/2025 12:36 ET Ean Hoffman MD IMG XR PROCEDURES Final Result * XR Chest 1 View (04/01/2025 12:19 PM EDT) Anatomical Region Laterality Modality Body Radiographic Alessandra ging 04/01/2025 12:3 0 PM EDT Impressions 04/01/2025 12:33 PM EDT FINDINGS/IMPRESSION: Hyperinflation. Scoliosis. Postoperative mediastinum with cardiomegaly. Scattered coarse interstitial markings are nonspecific and presumably related to areas of scarring. No consolidation or effusion. -------- FINAL REPORT -------- Dictated By: Henry Forrester Dictated Date: 04/01/2025 12:30 ET Assigned Physician: Henry Forrester Reviewed and Electronically Signed By: Henry Forrester Signed Date: 04/01/2025 12:33 ET Workstation ID: [id number] Transcribed By: Self Edit Transcribed Date: 04/01/2025 12:30 ET Narrative 04/01/2025 12:33 PM EDT XR CHEST 1 VIEW INDICATION: OTHER pre op, hip fx TECHNIQUE: XR CHEST 1 VIEW COMPARISON: None Procedure Note Henry Forrester MD - 04/01/2025 XR CHEST 1 VIEW INDICATION: OTHER pre op, hip fx TECHNIQUE: XR CHEST 1 VIEW COMPARISON: None IMPRESSION: FINDINGS/IMPRESSION: Hyperinflation. Scoliosis. Postoperativemediastinum with cardiomegaly. Scattered coarse interstitial markings arenonspecific and presumably related to areas of scarring. No consolidationor effusion. -------- FINAL REPORT -------- Dictated By: Henry Forrester Dictated Date: 04/01/2025 12:30 ET Assigned Physician: Henry Forrester Reviewed and Electronically Signed By: Henry Forrester Signed Date: 04/01/2025 12:33 ET Workstation ID: [id number] Transcribed By: Self Edit Transcribed Date: 04/01/2025 12:30 ET us Ean Hoffman MD IMG XR PROCEDURES Final Result * CT Cervical Spine wo Contrast (04/01/2025 11:31 AM EDT) Anatomical Region Laterality Modality Spine, C-spine Computed Tomogra phy 04/01/2025 12:0 5 PM EDT Impressions 04/01/2025 12:09 PM EDT Impression: 1. No evidence of cervical spine fracture or subluxation. 2. Multilevel disc degenerative changes with bilateral bony neural foraminal narrowing. Telefermin SUMNER ([id number]) -------- FINAL REPORT -------- Dictated By: Carmen Prado Dictated Date: 04/01/2025 12:05 ET Assigned Physician: Carmen Prado Reviewed and Electronically Signed By: Carmen Prado Signed Date: 04/01/2025 12:09 ET Workstation ID: [id number] Transcribed By: Self Edit Transcribed Date: 04/01/2025 12:05 ET Narrative 04/01/2025 12:09 PM EDT History: Neck pain after fall. Technique: Helical volumetric imaging of the cervical spine was performed. DLP: 357.97 mGy/cm [employer] Iterative reconstruction technique Findings: Vertebral alignment is normal. The craniocervical articulations are well- maintained. The odontoid process is intact and no abnormal widening of the predental distance is seen. The cervical vertebral bodies maintain normal height. Loss of disc height is seen throughout the cervical spine, consistent with degenerative disc disease. This is accompanied by uncovertebral and anterior vertebral endplate spurring. There are scattered arthritic changes within the apophyseal joints. Bilateral bony neural foraminal narrowing is seen due to uncovertebral hypertrophy, worst at C5-C6 and C6-C7. No significant bony encroachment upon the central spinal canal is seen. The prevertebral soft tissues are unremarkable. Procedure Note Carmen Prado MD - 04/01/2025 History: Neck pain after fall. Technique: Helical volumetric imaging of the cervical spine wasperformed. DLP: 357.97 mGy/cm [employer] Iterative reconstruction technique Findings: Vertebral alignment is normal. The craniocervical articulations arewell- maintained. The odontoid process is intact and no abnormal wideningof the predental distance is seen. The cervical vertebral bodies maintain normal height. Loss of disc heightis seen throughout the cervical spine, consistent with degenerative discdisease. This is accompanied by uncovertebral and anterior vertebralendplate spurring. There are scattered arthritic changes within theapophyseal joints. Bilateral bony neural foraminal narrowing is seen due to uncovertebralhypertrophy, worst at C5-C6 and C6-C7. No significant bony encroachmentupon the central spinal canal is seen. The prevertebral soft tissues are unremarkable. IMPRESSION: Impression: 1. No evidence of cervical spine fracture or subluxation. 2. Multilevel disc degenerative changes with bilateral bony neuralforaminal narrowing. [employer] [place] ([id number]) -------- FINAL REPORT -------- Dictated By: Carmen Prado Dictated Date: 04/01/2025 12:05 ET Assigned Physician: Carmen Prado Reviewed and Electronically Signed By: Carmen Prado Signed Date: 04/01/2025 12:09 ET Workstation ID: [id number] Transcribed By: Self Edit Transcribed Date: 04/01/2025 12:05 ET Ean Hoffman MD IMG CT PROCEDURES Final Result * CT Head wo Contrast (04/01/2025 11:31 AM EDT) Anatomical Region Laterality Modality Head and Neck Computed Tomogra phy 04/01/2025 12:0 2 PM EDT Impressions 04/01/2025 12:05 PM EDT Impression: 1. No acute hemorrhage or intracranial mass effect. 2. Extensive, nonspecific deep white matter changes compatible with chronic microvascular ischemia in a patient of this age. 3. Multiple chronic lacunar infarcts. [place] ([id number]) -------- FINAL REPORT -------- Dictated By: Carmen Prado Dictated Date: 04/01/2025 12:02 ET Assigned Physician: Carmen Prado Reviewed and Electronically Signed By: Carmen Prado Signed Date: 04/01/2025 12:05 ET Workstation ID: [id number] Transcribed By: Self Edit Transcribed Date: 04/01/2025 12:02 ET Narrative 04/01/2025 12:05 PM EDT History: Brain trauma (fall). Comparison: 06/20/18 Technique: Contiguous axial images were obtained at 2.5 mm intervals through the posterior fossa and at 5 mm intervals through the remainder of the brain without intravenous contrast. DLP: 1070.31 mGy/cm [employer] [place] Iterative reconstruction technique Findings: Moderate generalized volume loss is demonstrated and has increased since the previous study. There is extensive, nearly confluent bilateral deep white matter hypodensity, unaccompanied by mass effect or hemorrhage and without significant change. Chronic lacunar infarcts are seen within the bilateral basal ganglia and left thalamus. No abnormal intra- or extra-axial masses or fluid collections are seen. There is no evidence of acute intracranial hemorrhage. Mucoperiosteal thickening is seen within the ethmoid and partially imaged maxillary sinuses, consistent with sinusitis. The mastoid air cells are clear. The calvarium is intact. Procedure Note Carmen Prado MD - 04/01/2025 History: Brain trauma (fall). Comparison: 06/20/18 Technique: Contiguous axial images were obtained at 2.5 mm intervalsthrough the posterior fossa and at 5 mm intervals through the remainder ofthe brain without intravenous contrast. DLP: 1070.31 mGy/cm [employer] [place] Iterative reconstruction technique Findings: Moderate generalized volume loss is demonstrated and has increased sincethe previous study. There is extensive, nearly confluent bilateral deepwhite matter hypodensity, unaccompanied by mass effect or hemorrhage andwithout significant change. Chronic lacunar infarcts are seen within thebilateral basal ganglia and left thalamus. No abnormal intra- or extra-axial masses or fluid collections are seen.There is no evidence of acute intracranial hemorrhage. Mucoperiosteal thickening is seen within the ethmoid and partially imagedmaxillary sinuses, consistent with sinusitis. The mastoid air cells areclear. The calvarium is intact. IMPRESSION: Impression: 1. No acute hemorrhage or intracranial mass effect. 2. Extensive, nonspecific deep white matter changes compatible withchronic microvascular ischemia in a patient of this age. 3. Multiple chronic lacunar infarcts. [employer] [place] ([id number]) -------- FINAL REPORT -------- Dictated By: Carmen Praod Dictated Date: 04/01/2025 12:02 ET Assigned Physician: Carmen Prado Reviewed and Electronically Signed By: Carmen Prado Signed Date: 04/01/2025 12:05 ET Workstation ID: [id number] Transcribed By: Self Edit Transcribed Date: 04/01/2025 12:02 ET Ean Hoffman MD IMG CT PROCEDURES Final Result * Troponin I High Sensitivity (04/01/2025 11:05 AM EDT) High Sensitivity Troponin I 13 <=54 ng/L LAB CHEMISTRY METHOD 04/01/2025 12:38 PM EDT [facility] Blood Venous blood specimen / Unknown Venipuncture / Unknown 04/01/2025 11:05 AM EDT 04/01/2025 12:05 PM EDT Narrative [facility] - 04/01/2025 12:38 PM EDT High levels of biotin in samples may falsely decrease hsTroponin values. Use caution when interpreting hsTroponin results in patients taking biotin who exhibit renal impairment (eGFR <60) or in patients taking more than 20 mg/day of biotin. Ean Hoffman MD LAB BLOOD ORDERABLES Final Res ult [facility] [address] [place] [address], * CARDIAC HOLTER MONITOR (REPORT GENERATED IN HOUSE) (03/27/2025 2:45 PM EDT) Anatomical Region Laterality Modality Cardiac Diagnost ic Narrative 04/01/2025 10:13 AM EDT [facility] DEPARTMENT [address] [address] TEL: FAX: Type of test: 24 hour Holter Monitor Date of test: 03/27/25 Ordering provider: Florina Todd NP Reason for Test: Paroxysmal Atrial Fibrillation Findings: 1: Atrial Fibrillation noted throughout recording period. 2: Ventricular rate range was 45- 114 bpm with an average of 79 bpm. 3: Occasional PVCs (3.7%), occasional couplets and ventricular bi/trigeminy, rare triplets, and one 4-beat ventricular run vs aberrancy. 4: No significant pauses noted. Longest R-R 2.2 sec. 5: Diary returned with no symptoms noted. Impression: Afib rate controlled with occasional PVCs. us Florina Todd MANAGER TALENT MANAGEMENT [facility] OCEDURES Final Result * (ABNORMAL) TRANSTHORACIC ECHOCARDIOGRAM (TTE) COMPLETE (03/13/2025 3:59 PM EDT) LV EDV (A2C) 78 mL CV PACS LV EDV (A4C) 87 mL CV PACS LV Diastolic Volume (BP) 85 46 - 106 mL CV PACS LV ESV (A2C) 38 mL CV PACS LV ESV (A4C) 50 mL CV PACS LV Systolic Volume (BP) 45(A) 14 - 42 mL CV PACS IVSD 0.9 0.6 - 0.9 cm CV PACS LVIDD 4.1 3.8 - 5.2 cm CV PACS LVIDS 2.9 2.2 - 3.5 cm CV PACS LVOT Diameter 1.9 cm CV PACS LVOT Mean Grad 1 mmHg CV PACS LVOT Peak VTI 14.6 cm CV PACS LVOT Mean [place] 0.5 m/s CV PACS LVOT Peak [place] 0.8 m/s CV PACS LVOT Peak Gradient 2 mmHg CV PACS LVPWD 1.5(A) 0.6 - 0.9 cm CV PACS MV E' Tissue Velocity Lateral 11 cm/s CV PACS MV E' Tissue Velocity Septal 4 cm/s CV PACS Ejection Fraction (A2C) 51 % CV PACS Ejection Fraction (A4C) 43 % CV PACS Ejection Fraction (BP) 47 % CV PACS LVOT Area 2.8 cm2 CV PACS LVOT Stroke Volume 50 mL CV PACS Left Atrium Minor [place] 7.1 cm CV PACS Left Atrium Major [place] 7.3 cm CV PACS LA Area Sys (A2C) 33 cm2 CV PACS LA Area Sys (A4C) 31 cm2 CV PACS LA Volume (BP) 116 mL CV PACS RA Area 21.5 cm2 CV PACS RA 2D Volume 70 mL CV PACS AV Mean Gradient 2 mmHg CV PACS Ao VTI 23.7 cm CV PACS AV Peak [place] 1.1 m/s CV PACS AV Peak Gradient 4 mmHg CV PACS AV Area Continuity Equation 1.7 cm2 CV PACS AV Area Peak Velocity 2.1 cm2 CV PACS Aortic Sinus Valsalva 3.3 cm CV PACS Ascending Aorta 3.5 cm CV PACS MV Peak E [place] 0.90 m/s CV PACS MV Mean Gradient 3 mmHg CV PACS MV VTI 43.4 cm CV PACS Mitral Valve Max Velocity 2.1 m/s CV PACS MV Peak Gradient 17 mmHg CV PACS MV Area Continuity Equation 1.0 cm2 CV PACS PV Acceleration Time 70 ms CV PACS PV Acceleration Time 81 ms CV PACS PV Acceleration Time 120 ms CV PACS PV Acceleration Time 90 ms CV PACS RV Diastolic Basal Dimension 3.6 2.5 - 4.1 cm CV PACS RV S' 9 cm/s CV PACS TAPSE 16 mm CV PACS TR Peak Velocity 3.40 m/s CV PACS TR Peak Gradient 36 mmHg CV PACS LV ESV Index (A4C) 35 mL/m2 CV PACS LV EDV Index (A4C) 61 mL/m2 CV PACS E/E' Ratio Septal 23 CV PACS E/E' Ratio Averaged 15 CV PACS LVOT Stroke Index 35 mL/m2 CV PACS Relative Wall Thickness ratio 0.73(A) 0.22 - 0.42 CV PACS LVOT:AV VTI Index 0.62 CV PACS FS 29 % CV PACS LV Mass 2D 172(A) 66 - 150 g CV PACS Ascending Aorta Index 2.46 cm/m2 CV PACS MV VTI:LVOT VTI ratio 3.0 CV PACS LVOT flow 142 mL/s CV PACS RA 2D Volume Index 49 15 - 27 mL/m2 CV PACS [place] Index (VTI) 1.23 cm2/m2 CV PACS [place] Index (Pk [place]) 1.48 cm2/m2 CV PACS LVIDD Index 2.89 cm/m2 CV PACS LVIDS Index 2.04 cm/m2 CV PACS AV Velocity Ratio 0.73 CV PACS E/E' Ratio Lateral 8 CV PACS LV Systolic Volume Index (BP) 32(A) 8 - 24 mL/m2 CV PACS LV Diastolic Volume Index (BP) 60(A) 29 - 61 mL/m2 CV PACS LA Volume Index (BP) 82 mL/m2 CV PACS LV Mass Index 2D 121(A) 44 - 88 g/m2 CV PACS LV EDV Index (A2C) 55 mL/m2 CV PACS LV ESV Index (A2C) 27 mL/m2 CV PACS BSA 1.38 m2 CV PACS LA Volume (A-L) 48 mL CV PACS LA Volume Index (A-L) 34 mL/m2 CV PACS RV Free Wall Peak S' 8 cm/s CV PACS RA Major [place] 5.4 cm CV PACS RA Major [place] Index 3.8(A) 2.2 - 2.8 cm/m2 CV PACS AV Area 2D 2.0 cm2 CV PACS [place] Index (2D) 1.41 cm2/m2 CV PACS LV EF MOD 2C 51 % CV PACS LV EF 4C A-L 46 % CV PACS LV EDV 4C A-L 88 mL CV PACS LV Length Sys (A4C) 6.8 cm CV PACS LV Length Car[place]allo (A4C) 7.3 cm CV PACS AV Area Index 1.5 CV PACS Left Ventricular Stroke Volume by 2-D Biplane-MOD 40 mL CV PACS Right Ventricular Peak Systolic Pressure 54 mmHg CV PACS Est. RA Pressure 8 mmHg CV PACS Anatomical Region Laterality Modality Ultrasound Addenda Addendum by Bhaskar Becker MD on 03/20/2025 11:44 AM EDT Left ventricle cavity size is normal. Left [...] is a mild drop in the LVEF. Left Ventricle Left ventricle cavity size is normal. Wall thickness not well seen but appears at least mildly hypertrophied. Systolic function is mildly decreased with an ejection fraction of 40-45%. Mild global LV hypokinesis is present. Unable to assess diastolic function due to atrial fibrillation. Right Ventricle Right ventricle cavity appears normal. Systolic function is mildly reduced. Left Atrium Left atrium cavity is severely dilated. Right Atrium Right atrium cavity is moderately dilated. IVC/SVC Inferior vena cava structure is normal. RA pressures is estimated to be 8 mmHg (IVC diameter >21 mm and decreases >50% during inspiration). Mitral Valve The leaflets are mildly thickened. The valve has been repaired with an annular ring and is well-seated. There is mild regurgitation. There is no evidence of mitral valve stenosis. Tricuspid Valve Tricuspid valve structure is normal. There is mild to moderate regurgitation. There is no evidence of tricuspid valve stenosis. The right ventricular systolic pressure is mildly elevated at 44 mmHg. Aortic Valve The aortic valve is trileaflet. The leaflets are mildly thickened. There is trace regurgitation. There is no evidence of aortic valve stenosis. Pulmonic Valve Visualized portions of the pulmonic valve appear normal. There is trace pulmonic valve regurgitation. There is no evidence of pulmonic valve stenosis. Ascending Aorta The aorta appears normal in size. Pericardium Pericardium appears normal. There is no pericardial effusion. Study Details Overall the study quality was adequate. Wall Scoring Baseline Score Index: 2.00 The left ventricular wall motion is globally hypokinetic. us Bhaskar Becker MD CV ECHO PROCEDURES Edited Result - Final * XR Hips 5+ Views wo or w Pelvis bilat (03/06/2025 2:13 PM EDT) Anatomical Region Laterality Modality Lower Extremities, Hip Bilateral Radiograp hic Imaging Narrative 03/06/2025 2:55 PM EDT AP view of the pelvis. Bilateral hips, 2 views of each. There is evidence of bowel healed fractures of the pubic bones bilaterally as well as in the left aspect of the symphysis pubis. There are severe degenerative changes in the right hip joint with lateral subluxation of the femoral head, severe narrowing of the joint space, subchondral sclerosis and cyst formation as well as prominent lateral osteophyte arising from the right acetabulum. There is arm flattening of the articular surface of the right femoral head. Possibility of avascular necrosis should be considered. Left hip joint is essentially maintained Visualized portion of the lumbosacral spine revealed severe spondylotic changes. CONCLUSIONS: Severe degenerative changes in the right hip joint with flattening of the articular surface of the femoral head suggestive of possible of vascular necrosis. Sequela of bilateral probably old pubic bones fractures, this needs to be correlated with patient's history. Also suggestion of fracture of the left aspect of the symphysis pubis. Additional findings in the report. -------- FINAL REPORT -------- Dictated By: Jory Fink Dictated Date: 03/06/2025 14:47 ET Assigned Physician: Jory Fink Reviewed and Electronically Signed By: Jory Fink Signed Date: 03/06/2025 14:55 ET Workstation ID: [id number] Transcribed By: Self Edit Transcribed Date: 03/06/2025 14:47 ET Adrian SUMNER IMG XR PROCEDURES Edited Result - Final * Injection tendon or ligament: R ring A1 (03/06/2025 2:00 PM EDT) Adrian Jang PA - 03/06/2025 2:00 PM EDT BURAK Rucker 03/06/2025 2:48 PM Injection tendon or ligament: R ring A1 for trigger finger Indications: tendon swelling Details: 25 G needle, volar approach Medications: 2 mL lidocaine 1 %; 40 mg methylPREDNISolone acetate 40 mg/mL Outcome: tolerated well, no immediate complications 1 cc total injected Informed Consent: Site: Tendon sheath A1 clarisa Laterality: Right Relevant images/test results available and reviewed: yes Health status cleared: Yes Risk/complications/benefits details: Risks include but are not limited to: The treatment may not accomplish the desired results. Additionally bleeding, infection, damage to tendon, nerve, cartilage, muscle; thinning or lightening of the skin in the area of injection; flushing or redness of the face, elevated blood pressure or blood sugar, allergic reaction, rash, increased pain Patient questions answered: yes Patient agrees, verbalizes understanding, and wants to proceed: yes Consent given by: Patient Informed consent discussion completed by Physician/BUDDY with patient: Written; patient signed and dated; copy to patient Pre-procedure timeout performed: yes Adrian SUMNER IN CLINIC/BEDSIDE ORDERABLES Fin al Result * Lipid panel with reflex to direct LDL (11/21/2024 11:32 AM EDT) Cholesterol 141 0 - 200 mg/dL LAB CHEMISTRY METHOD 11/21/2024 3:42 PM EDT [facility] Triglycerides 78 0 - 150 mg/dL LAB CHEMISTRY METHOD 11/21/2024 3:42 PM EDT [facility] HDL 87 >=40 mg/dL LAB CHEMISTRY METHOD 11/21/2024 3:42 PM EDT [facility] LDL Calculated 38 0 - 100 mg/dL LAB CHEMISTRY METHOD 11/21/2024 3:42 PM EDT [facility] VLDL Cholesterol Daron 15.6 mg/dL LAB CHEMISTRY METHOD 11/21/2024 3:42 PM EDT [facility] Non HDL Chol. (LDL+VLDL) 54 <145 mg/dL LAB CHEMISTRY METHOD 11/21/2024 3:42 PM EDT [facility] Chol/HDL Ratio 1.6 0.0 - 4.4 LAB CHEMISTRY METHOD 11/21/2024 3:42 PM EDT [facility] Blood Venous blood specimen / Unknown Venipuncture / Unknown 11/21/2024 11:32 AM EDT 11/21/2024 11:32 AM EDT Bhaskar Becker MD LAB BLOOD ORDERABLES Izzy l Result [facility] [address] [place] [address], * DXA BONE DENSITY STUDY 1+ SITS AXIAL SKEL (05/28/2023 1:42 PM EST) Anatomical Region Laterality Modality Bone Densitometr y 03/26/2023 2:10 PM EDT Narrative 05/30/2023 1:10 PM EST BONE DENSITY LEFT WRIST T-score is -3.0 (SD relative to 20-29 y/o adult) Z-score is +0.1 (SD relative to age matched peers) This is consistent with osteoporosis by criteria defined by the WHO. Left Hip T-score is -3.5 Z-score is -1.1 This is consistent with osteoporosis by criteria defined by the WHO. Impression: Based on the World Health Organization criteria, Isabella Grace should be classified as having osteoporosis. [facility] Department of Internal Medicine recommends using National Osteoporosis Foundation (NOF) guidelines in treatment decisions related to osteoporosis. NOF guidelines suggest considering treatment for postmenopausal women and men aged 50 or older presenting with the following: History of hip or vertebral fracture. T-score less than or equal to -2.5 (DXA) at the femoral neck, total hip, or spine, after appropriate evaluation to exclude secondary causes. Low bone mass (T-score between -1.0 and -2.5 at the femoral neck or spine) AND a 10-year probability of a hip fracture greater than or equal to 3% OR a 10-year probability of a major osteoporosis-related fracture greater than or equal to 20% based on the [place]-adapted WHO algorithm Please note that all treatment decisions require clinical judgment and consideration of individual patient factors, including patient preferences, co-morbidities, previous drug use, risk factors not captured in the FRAX model (e.g., frailty, falls, vitamin D deficiency, increased bone turnover, interval significant decline in bone density) and possible under- or over-estimation of fracture risk by FRAX. Procedure Note Jory Fink MD - 07/31/2023 BONE DENSITY LEFT WRIST T-score is -3.0 (SD relative to 20-29 y/o adult) Z-score is +0.1 (SD relative to age matched peers) This is consistent with osteoporosis by criteria defined by the WHO. Left Hip T-score is -3.5 Z-score is -1.1 This is consistent with osteoporosis by criteria defined by the WHO. Impression: Based on the World Health Organization criteria, Isabella Grace shouldbe classified as having osteoporosis. [facility] Department of Internal Medicine recommendsusing National Osteoporosis Foundation (NOF) guidelines in treatmentdecisions related to osteoporosis. NOF guidelines suggest consideringtreatment for postmenopausal women and men aged 50 or older presentingwith the following: History of hip or vertebral fracture. T-score less than or equal to -2.5 (DXA) at the femoral neck, total hip,or spine, after appropriate evaluation to exclude secondary causes. Low bone mass (T-score between -1.0 and -2.5 at the femoral neck or spine)AND a 10-year probability of a hip fracture greater than or equal to 3% ORa 10-year probability of a major osteoporosis-related fracture greaterthan or equal to 20% based on the [place]-adapted WHO algorithm Please note that all treatment decisions require clinical judgment andconsideration of individual patient factors, including patientpreferences, co-morbidities, previous drug use, risk factors not capturedin the FRAX model (e.g., frailty, falls, vitamin D deficiency, increasedbone turnover, interval significant decline in bone density) and possibleunder- or over-estimation of fracture risk by FRAX. 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 Advance Directives and Living Will 04/21/2025 1:43 PM [facility] Health Care Decision (hx) 08/17/2017 AD VALENTIN DIRECTIVE Health Care Decision (hx) 08/17/2017 AD VALENTIN DIRECTIVE Health Care Decision (hx) 08/17/2017 AD VALENTIN DIRECTIVE Health Care Decision (hx) 08/17/2017 AD VALENTIN DIRECTIVE Health Care Decision (hx) 08/17/2017 AD VALENTIN DIRECTIVE Health Care Decision (hx) 08/17/2017 Jovon Grace ADVANCE DIRECTIVE Health Care Decision (hx) 04/15/2014 AD VALENTIN DIRECTIVE Health Care Decision (hx) 04/15/2014 AD VALENTIN DIRECTIVE Health Care Decision (hx) 04/15/2014 AD VALENTIN DIRECTIVE Health Care Decision (hx) 04/15/2014 AD VALENTIN DIRECTIVE Health Care Decision (hx) 04/15/2014 AD VALENTIN DIRECTIVE Health Care Decision (hx) 04/15/2014 AD VALENTIN DIRECTIVE * Full Code - Confirmed (Latest Code Status on File) Date Activated Date Inactivated Comments 05/01/2025 8:25 PM This code stat us was ascertained in the following way: Code status discussion: discussion with patient To update the patient's code status, place a code status order. Do not modify or discontinue any currently active code status orders. * Full Code - Default Date Activated Date Inactivated Comments 05/01/2025 6:11 PM 05/01/2025 8:25 PM This is orde r is used when code status has not been discussed with the patient, or code status is otherwise unknown/unconfirmed To update the patient's code status, place a code status order. Do not modify or discontinue any currently active code status orders. * Full Code - Default Date Activated Date Inactivated Comments 04/09/2025 2:47 PM 04/20/2025 5:53 PM This is or estiven is used when code status has not been discussed with the patient, or code status is otherwise unknown/unconfirmed To update the patient's code status, place a code status order. Do not modify or discontinue any currently active code status orders. * Full Code - Default Date Activated Date Inactivated Comments 04/01/2025 2:30 PM 04/05/2025 6:38 PM This is ord er is used when code status has not been discussed with the patient, or code status is otherwise unknown/unconfirmed To update the patient's code status, place a code status order. Do not modify or discontinue any currently active code status orders. * Full Code - Default Date Activated Date Inactivated Comments 08/24/2024 7:32 PM 08/25/2024 5:41 PM This is order is used when code status has not been discussed with the patient, or code status is otherwise unknown/unconfirmed To update the patient's code status, place a code status order. Do not modify or discontinue any currently active code status orders. Healthcare Agents on File Name Relationship Healthcare Agent [facility] Communication Jovon Grace [facility] Health Care Agent Care Teams Assistant City Attorney Relationship Specialty Start Date End Date Lilliam Levy MD [address] [place] [id number] PCP - General Internal Medicine 07/11/21
--- OUTSIDE RECORDS SUMMARY | 2025-05-19 12:23 | XMS_ITS | Encounter Summary ---
Author Organization [facility] Address [address] [place] [address] Care Team Providers Care Cell Manager Name Role Phone Lilliam Levy MD Primary Care Provider Encounter Details Date Type Department Care Team (Latest Contact Info) Description 04/06/2025 Lab Requisition [facility] - Main Lab [address] [place] [address] Casimiro Oh MD [facility] [place] [address] Essential (primary) hypertension; Unspecified atrial fibrillation (CMS/HCC V24, CMS/HCC V28); Displaced intertrochanteric fracture of right femur, initial encounter for closed fracture (CMS/HCC V24, CMS/HCC V28) Social History Tobacco Use Types Packs/Day Years Used Date Smoking Tobacco: Former Cigarettes 0.5 Q uit: 11/23/2020 Smokeless Tobacco: Never Alcohol Use Standard Drinks/Week Comments Yes 1 (1 standard drink = 0.6 oz pur e alcohol) once a week Housing Instability Answer Date Recorde d Are you worried that in the next 2 months you may not have stable housing? No 04/09/2025 Food Access & Nutrition Answer Date Rec orded Do you have access to a vari ety of food including fruits and vegetables? No 04/09/2025 Access to Healthcare Answer Date Record ed Within the last 3 months, ho w many times did you visit the emergency department for your medical care? 1 04/09/2025 Health Literacy Answer Date Recorded How often do you need to hav e someone help you when you read instructions, pamphlets, or other written material from your doctor or pharmacy? Never 04/09/2025 Caregiver: How often do you need to have someone help you when you read instructions, pamphlets, or other written material from your doctor or pharmacy? Not on file 04/09/2025 Financial Risk Answer Date Recorded How hard is it for you to pa y for the very basics like food, housing, medical care, and air conditioning / heating? Patient declined 04/09/2025 Transportation Answer Date Recorded Has the lack of transportati on kept you from meetings, work, or from getting things needed for daily living? No Has the lack of transportati on kept you from medical appointments or from getting medications? No 04/09/2025 Social Isolation Answer Date Recorded How often do you feel lonely or isolated from th ose around you? Rarely 04/09/2025 Food Risk Answer Date Recorded Within the past 12 months we worried whether our food would run out before we got money to buy more. Never true 04/09/2025 Within the past 12 months th e food we bought just didn't last and we didn't have money to get more. Never true 04/09/2025 Dependent Care Answer Date Recorded Do you need help finding or paying for care for your loved ones. For example, child care center administrator or elderly care for an older adult? No 04/09/2025 Education Answer Date Recorded Do you think completing more education or training, like finishing a GED, going to college, or learning a trade, would be helpful for you? No 04/09/2025 Employment and Income Answer Date Recor ded During the last four weeks, have you been actively looking for work? No 04/09/2025 Living Situation Answer Date Recorded What is your living situation? Unrecognized valu e 04/09/2025 Interpersonal Safety Answer Date Record ed Physical Abuse Unrecognized value 04/09/2025 Verbal Abuse Unrecognized value 04/09/2025 Comments No Sex and Gender Information Value Date Recorded Sex Assigned at Female 06/27/2024 10:57 AM EST Legal Sex Female 12:23 PM EST Gender Identity Female 06/27/2024 10:57 AM EST Sexual Orientation Straight 06/27/2024 10 :57 AM EST documented as of this encounter Functional Status * Calculated C-SSRS Risk Score (Lifetime/Recent) Answer Date of Assessment Author No Risk Indicated 04/09/2025 4:27 PM EDT Savanna Dsouza, FELIPE * [place] Suicide Severity Rating Scale (Screener/Recent Self-Report) Question Answer Date of Assessment Author 1. Wish to be (Past 1 Month) No 025 4:27 PM EDT Savanna Dsouza, FELIPE 2. Non-Specific Active Suici victoria Thoughts (Past 1 Month) No 04/09/2025 4:27 PM EDT Savanna Dsouza , FELIPE 6. Suicidal Behavior (Lifetime) No 4:27 PM EDT Savanna Dsouza, FELIPE documented as of this encounter Plan of Treatment Upcoming Encounters Date Type Department Care Team (Late st Contact Info) Description 05/22/2025 7:30 AM EST - 05/22/2025 9:00 AM EST Surgery [facility] Main OR [address] [place] [phone] Gris Mojica MD [address] [place] [address] DEBRIDEMENT WOUND RIGHT DISTAL FEMUR 05/27/2025 11:00 AM EST Office Visit General Surgery - [address] [place] [phone] Marcellus Powell DO [address] [place] [address] 06/02/2025 3:15 PM EST Appointment Bone Density [address] [address] 06/11/2025 2:30 PM EST Office Visit Adult Medicine - [place] [address] [place] [phone] Lilliam Levy MD [address] [place] [address] 08/06/2025 10:50 AM EST Office Visit [facility] [address] [facility] [address] [place] [phone] Bhaskar Becker MD [address] [place] [address] [place] [address] Scheduled Procedures Name Priority Associated Diagnoses Date/Ti me DEBRIDEMENT WOUND Open wound of right lower extremity, sequela Infection associated with internal fixation device of right femur, subsequent encounter 05/22/2025 7:30 AM EST documented as of this encounter Goals Goal Patient Goal Type Associated Problems Recent Progress Patient-Stated? Author Autogenerat ed Goal Care Plan Autogenerated Problem No Sindi Jennings PA documented as of this encounter Procedures Procedure Name Priority Date/Time Associated Diagnosis Comments COMPLETE BLOOD COUNT Routine 04/06/2025 8:10 AM EDT Essential (primary) hypertension Unspecified atrial fibrillation (CMS/HCC V24, CMS/HCC V28) Displaced intertrochanteric fracture of right femur, initial encounter for closed fracture (CMS/HCC V24, CMS/HCC V28) BASIC METABOLIC PANEL Routine 04/06/2025 8:10 AM EDT Essential (primary) hypertension Unspecified atrial fibrillation (CMS/HCC V24, CMS/HCC V28) Displaced intertrochanteric fracture of right femur, initial encounter for closed fracture (CMS/HCC V24, CMS/HCC V28) documented in this encounter Results * (ABNORMAL) Basic metabolic panel (04/06/2025 8:10 AM EDT) Sodium 141 133 - 145 mmol/L LAB CHEMISTRY METHOD 04/06/2025 1:13 PM EDT [facility] Potassium 4.3 3.5 - 5.5 mmol/L LAB CHEMISTRY METHOD 04/06/2025 1:13 PM EDT [facility] Chloride 110 96 - 110 mmol/L LAB CHEMISTRY METHOD 04/06/2025 1:13 PM EDT [facility] CO2 23 21 - 32 mmol/L LAB CHEMISTRY METHOD 04/06/2025 1:13 PM T [facility] Anion Gap 8 3 - 11 LAB CHEMISTRY METHOD 04/06/2025 1:13 PM [facility] Glucose 85 70 - 100 mg/dL LAB CHEMISTRY METHOD 04/06/2025 1:13 PM [facility] BUN 29(H) 5 - 25 mg/dL LAB CHEMISTRY METHOD 04/06/2025 1:13 PM [facility] Creatinine 0.61 0.50 - 1.10 mg/dL LAB CHEMISTRY METHOD 04/06/2025 1:13 PM [facility] eGFR 89 >=60 mL/min/1. 73m2 LAB CHEMISTRY METHOD 04/06/2025 1:13 PM [facility] Comment:Calculation based on the Chronic Kidney Disease Epidemiology Collaboration (CKD-EPI) equation refit without adjustment for race. BUN/Creatinine Ratio 47.5 LAB CHEMISTRY METHOD 04/06/2025 1:13 PM [facility] Calcium 8.5 8.5 - 10.5 mg/dL LAB CHEMISTRY METHOD 04/06/2025 1:13 PM [facility] Blood Venous blood specimen / Unknown Venipuncture / Unknown 04/06/2025 8:10 AM EDT 04/06/2025 11:04 AM EDT us Casimiro Oh MD LAB BLOOD ORDERABLES Final R esult [facility] [address] [place] [address], * (ABNORMAL) Complete blood count (04/06/2025 8:10 AM EDT) WBC 9.0 4.8 - 10.8 K/mcL LAB HEMETOLOGY METHOD 04/06/2025 12:44 PM [facility] RBC 2.90(L) 3.80 - 4.80 M/mcL LAB HEMETOLOGY METHOD 04/06/2025 12:44 PM [facility] Hemoglobin 9.1(L) 11.5 - 16.0 g/dL LAB HEMETOLOGY METHOD 04/06/2025 12:44 PM [facility] Hematocrit 28.6(L) 35.0 - 47.0 % LAB HEMETOLOGY METHOD 04/06/2025 12:44 PM [facility] MCV 98.6(H) 79.0 - 98.0 FL LAB HEMETOLOGY METHOD 04/06/2025 12:44 PM [facility] MCH 31.4 27.0 - 32.0 pcg LAB HEMETOLOGY METHOD 04/06/2025 12:44 PM [facility] MCHC 31.8(L) 32.0 - 37.0 g/dL LAB HEMETOLOGY METHOD 04/06/2025 12:44 PM [facility] RDW 15.0 11.0 - 15.0 % LAB HEMETOLOGY METHOD 04/06/2025 12:44 PM [facility] Platelets 213 130 - 400 K/mcL LAB HEMETOLOGY METHOD 04/06/2025 12:44 PM [facility] MPV 10.0 7.0 - 11.0 FL LAB HEMETOLOGY METHOD 04/06/2025 12:44 PM [facility] NRBC 0.0 <1.0 % LAB HEMETOLOGY METHOD 04/06/2025 12:44 PM [facility] NRBC Absolute 0.00 <0.10 K/mcL LAB HEMETOLOGY METHOD 04/06/2025 12:44 PM [facility] Blood Venous blood specimen / Unknown Venipuncture / Unknown 04/06/2025 8:10 AM EDT 04/06/2025 11:04 AM EDT us Casimiro Oh MD LAB BLOOD ORDERABLES Final R esult [facility] [address] [place] [address], documented in this encounter Visit Diagnoses Diagnosis Essential (primary) hypertension Unspecified essential hypertension Unspecified atrial fibrillation ([facility] V24, CMS/[facility] V28) Displaced intertrochanteric fracture of right femur, initial encounter for closed fracture ([facility] V24, [facility] V28) Open wound of right lower extremity, sequela Infection associated with internal fixation device of right femur, subsequent encounter documented in this encounter Additional Health Concerns Active Problems Noted Date Diagnosed Date Autogenerated Problem 04/02/2025 Assessment Noted Time PHQ-9 Depression Total Score: 1 02/05/20 25 12:33 PM EDT documented as of this encounter Care Teams Cell Manager Relationship Specialty Start Date End Date Lilliam Levy MD [address] [place] [id number] PCP - General Internal Medicine 07/11/21 documented as of this encounter
== END 2025-04-22 00:01 | disposition home or self-care (01) ==
LOC: HO.MMNH1L
PROVIDERS: Visit Provider Physician Assistant Medical
DX: Z13.89 Encounter for screening for other disorder (principal)
CPT/HCPCS: 36415; 80053; 83036; 85025

== ENCOUNTER 2025-06-24 17:09 | Outpatient (REF) | payer MEDICARE, SELFPAY ==
--- OUTSIDE RECORDS SUMMARY | 2025-06-24 17:13 | XMS_ITS ---
Author Name [facility] Organization Unknown Problems Problem Status Onset Date Problem Type Date of Resoluti on Source Zoe-prosthetic fracture of femur at tip of prosthesis active 2025-05-04 ProblemAct [facility] CHF (congestive heart failure) active 2021-01-17 [facility]Act [facility] Periprosthetic fracture around prosthetic joint, initial encounter active 2025-05-01 ProblemAct [facility] Hardware complicating wound infection active 2025-05-28 ProblemAct [facility] Atrial fibrillation with rapid ventricular response active 2025-04-09 ProblemAct [facility] Open wound of right lower extremity active 2025-05-18 ProblemAct [facility] Bleeding from right hip wound active 2025-04-09 ProblemAct [facility] Hematoma of left thigh active 2025-05-12 ProblemAct [facility] Depression active 2021-01-17 ProblemAct [facility] Chronic obstructive pulmonary disease active 2014-04-27 ProblemAct [facility] Moderate malnutrition active 2025-04-12 ProblemAct [facility] S/P right hip fracture active 2025-04-01 ProblemAct [facility] Mitral valve regurgitation active 2021-01-17 ProblemAct [facility] C. difficile diarrhea active 2024-08-24 ProblemAct [facility] Closed displaced subtrochanteric fracture of right femur active 2025-04-02 ProblemAct [facility] Takotsubo cardiomyopathy active 2021-01-17 ProblemAct [facility] Chronic obstructive pulmonary disease active 2014-04-27 ProblemAct [facility] Glaucoma active 2024-10-03 ProblemAct [facility] Other closed fracture of distal end of right femur, initial encounter active 2025-05-02 ProblemAct [facility] Coronary artery disease involving [place] heart without angina pectoris active 2025-02-11 ProblemAct [facility] Infection associated with internal fixation device of right femur active 2025-05-18 ProblemAct [facility] HTN (hypertension) active 2021-01-17 ProblemAct [facility] Collagenous colitis active 2021-04-19 ProblemAct [facility] Immunizations Vaccine Date Source Lot Number Status Influenza trivalent, 0.5mL ( Fluad) 65yo and older 04/10/2024 [facility] [id number] completed Td Tetanus diptheria (Tdvax) 7yo and older 10/30/2023 [facility] [id number] completed Influenza trivalent, 0.5mL ( Fluzone High-dose) 65yo and older 03/26/2023 [facility] [id number] comple myra Influenza Quadravalent, 0.5m l (Fluzone High-dose) 65yo and older 04/24/2022 [facility] [id number] comple myra Pneumococcal conjugate 20 va lent (Prevnar 20, PCV 20) 2mo and older 04/24/2022 [facility] [id number] comple myra Influenza trivalent, 0.5mL ( Fluzone High-dose) 65yo and older 04/19/2021 [facility] [id number] comple myra Pneumococcal polysaccharide 23 valent (Pneumovax 23) 2yo and older 04/19/2021 [facility] [id number] com pleted RazorGator SARS-CoV-2 COVID-19, mRNA, LNP-S, preservative free 03/30/2021 [facility] [id number] completed Influenza trivalent, 0.5mL ( Fluzone High-dose) 65yo and older 05/05/2020 [facility] [id number] comple myra Influenza trivalent, 0.5mL ( Fluzone High-dose) 65yo and older 02/16/2017 [facility] [id number] comple myra Influenza trivalent, 0.5mL ( Fluzone High-dose) 65yo and older 02/15/2015 [facility] [id number] comple myra
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
--- OUTSIDE RECORDS SUMMARY | 2025-06-24 17:13 | XMS_ITS | Encounter Summary ---
Author Organization [facility] Address [address] [place] [address] Care Team Providers Care Real Estate Sales Associate Name Role Phone Lilliam Levy MD Primary Care Provider Encounter Details Date Type Department Care Team (Late st Contact Info) Description 06/24/2025 Telephone Adult Medicine - [place] [address] [place] [phone] Lilliam Levy MD [address] [place] [address] Social History Tobacco Use Types Packs/Day Years [...] for your loved ones. For example, child custody evaluator or elderly care for an older adult? [...] as of this encounter Progress Notes * Charlotte Torres - 06/24/2025 10:40 AM EST error documented in this encounter Plan of Treatment Upcoming Encounters Date Type Department Care Team (Late st Contact Info) Description 06/29/2025 10:40 AM EST Appointment [facility] Ortho Xray [address] [place] [address] 06/29/2025 10:45 AM EST Appointment [facility] Ortho Xray [address] [place] [address] 07/01/2025 4:00 PM EST Office Visit Infectious Disease - [place] 175 [facility] 200 [place] [address] Koki Rasmussen MD 175 [facility] 200 [place] [address] 07/31/2025 3:30 PM EST Office Visit Adult Medicine - [place] [address] [place] [address] Lilliam Levy MD [address] [place] [address] 08/06/2025 10:50 AM EST Office Visit [facility] - [facility] 154 300 [facility] 154 [place] [phone] Bhaskar Becker MD Medical [facility] [address] [place] [phone] documented as of this encounter Goals Goal Patient Goal Type Associated Problems Recent Progress Patient-Stated? Author Autogenera myra Goal Care Plan Autogenerated Problem No Sindi Jennings PA Autogenera myra Goal Care Plan Autogenerated Problem No Honorio Jean-Baptiste PA Autogenera myra Goal Care Plan Autogenerated Problem No Honorio Jean-Baptiste PA Autogenera myra Goal Care Plan Autogenerated Problem No [place], Honorio W, PA Autogenera myra Goal Care Plan Autogenerated [...] Care Plan Autogenerated Problem No Samina Corea, FELIPE Autogenera myra Goal Care Plan Autogenerated Problem [...] 05/19/2025 Autogenerated Problem 05/25/2025 Autogenerated Problem 05/28/2025 Assessment Noted Time PHQ-9 Depression Total Score: 1 02/05/20 25 12:33 PM EDT documented as of this encounter Care Teams Real Estate Sales Associate Relationship Specialty Start Date End Date Lilliam Levy MD [address] [place] [address] PCP - General Internal Medicine 07/11/21 documented as of this encounter
--- OUTSIDE RECORDS SUMMARY | 2025-06-24 17:13 | XMS_ITS | Encounter Summary ---
Author Organization [facility] Address [address] [place] [address] Care Team Providers Care Giver Name Role Phone Lilliam Levy MD Primary Care Provider Encounter Details Date Type Department Care Team ([facility] st Contact Info) Description 06/24/2025 Telephone Infectious Disease - [place] 175 [facility] [address] [place] [address] Jackie Monae RN Social History Tobacco Use Types Packs/Day Years [...] for your loved ones. 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 [...] as of this encounter Progress Notes * Jackie Monae RN - 06/24/2025 3:24 PM EST I called back and spoke with [facility] again. They were going to try and send someone to get lab work. Dr. Rasmussen did receive a fax that specimen was not processed. * Jackie Monae RN - 06/24/2025 3:05 PM EST I spoke with both [facility] and [facility] looking for lab work on patient. [facility] was attempting to obtain results. [facility] was supposed to call back with results. documented in this encounter Plan of Treatment Upcoming Encounters Date Type Department Care Team (Late st Contact Info) Description 06/29/2025 10:40 AM EST Appointment Ortho Xray [address] [place] [address] 06/29/2025 10:45 AM EST Appointment Ortho Xray [address] [place] [phone] 07/01/2025 4:00 PM EST Office Visit Infectious Disease - [place] 175 [facility] 200 [place] [address] Koki Rasmussen MD 175 [facility] 200 [place] [address] 07/31/2025 3:30 PM EST Office Visit Adult Medicine - [place] 230 [place] [phone] iLlliam Levy MD [address] [place] [address] 08/06/2025 10:50 AM EST Office Visit [facility] - [facility] 154 300 [facility] 154 [place] [phone] Bhaskar Becker MD [address] [place] [address] [address] [place] [address] documented as of this encounter Goals Goal Patient Goal Type Associated Problems Recent Progress Patient-Stated? Author Autogenera myra Goal Care Plan Autogenerated Problem No Sindi Jennings, PA Autogenera myra Goal Care Plan Autogenerated Problem No TrimbleHonorio Peacock, PA Autogenera myra Goal Care Plan Autogenerated Problem No TrimbleHonorio Peacock, PA Autogenera myra Goal Care Plan Autogenerated Problem No TrimbleHonorio Peacock, PA Autogenera myra Goal Care Plan Autogenerated Problem No JenningsSindi waddell, PA Autogenera myra Goal Care Plan Autogenerated Problem No SwanKamilla PA Autogenera myra Goal Care Plan Autogenerated Problem No SwanKamilla PA Autogenera myra Goal Care Plan Autogenerated Problem No TrimbleHonorio, PA Autogenera myra Goal Care Plan Autogenerated Problem No Sindi Jennings, BURAK Autogenera myra Goal Care Plan Autogenerated Problem [...] documented as of this encounter Care Teams Giver Relationship Specialty Start Date End Date Lilliam Levy MD [address] [place] [address] PCP - General Internal Medicine 07/11/21 documented as of this encounter
--- OUTSIDE RECORDS SUMMARY | 2025-06-24 17:13 | XMS_ITS ---
07/31/2025 3:30 PM EST Office Visit Adult Medicine - [place] [address] [place] [id number] Lilliam Levy MD [address] [place] [address] 08/06/2025 10:50 AM EST Office Visit [facility] - [facility] [address] [facility] [address] [place] [address] Bhaskar Becker MD [address] [place] [address] [place] [phone] Health Maintenance Due Date Last Done Comments Zoster Vaccines (1 of 2) 1992 RSV Immunization Adult Patients (1 - 1-dose 75+ series) 2017 COVID-19 Vaccine ( season) 2025 04/28/2022, 03/30/2021, 08/14/2020, Additional history exists Influenza Vaccine (#1) 2025 , 03/26/2023, 04/24/2022, Additional history exists Medicare Annual Wellness Visit 09/16/2025 09/16/2024 Social Influencers of Health Screening 05/01/2026 05/01/2025 Falls Risk Assessment 06/02/2026 06/02/2025 , 02/11/2025, 12/17/2024, Additional history exists Hypertension/CHF/CAD Annual BMP Blood Test 06/08/2026 06/08/2025, 06/01/2025, 05/31/2025, Additional history exists Cholesterol Screening (Lipid Panel) [...] myra Goal Care Plan Autogenerated Problem No GouldbuskHonorio Peacock PA Autogenera myra Goal Care Plan Autogenerated [...] Plan Autogenerated Problem No Adelina Taylor PA Medical Devices Implanted Type Area Leather Tanner Device Identifier Shelf Expiration Date Model / Serial / Lot Cement Bone Simplex Full Dose - Sn/A - [id number] Implanted:Qty : 3 on 04/03/2025 by Brian Baeza MD at [facility] Bone Cement Right: Hip [employer] 06/24/2027 6191-1-001 / N/A / [id number] Plate Troc Rght Narrow - Sn/A - [id number] Implanted:Qty : 1 on 04/03/2025 by Brian Baeza MD at [facility] Internal and External Fixation Right: Hip [employer] [id number] 09/18/2034 [id number] / N/A / [id number] Screw Kareem Slftp Ncb 5x32mm - Sn/A - [id number] Implanted:Qty : 2 on 04/03/2025 by Brian Baeza MD at [facility] Internal and External Fixation Right: Hip [employer] [id number] / N/A / N/A Screw Bone 5mm 3.5x28mm Ncb - Sn/A - [id number] Implanted:Qty : 1 on 04/03/2025 by Brian Baeza MD at [facility] Internal and External Fixation Right: Hip [employer] [id number] / N/A / N/A Screw Lcking 3.5x30mm Ti Cancellous - Sn/A - [id number] Implanted:Qty : 1 on 04/03/2025 by Brian Baeza MD at [facility] Internal and External Fixation Right: Hip [employer] [id number] / N/A / N/A Screw Lcking 3.5x26mm Ti Cancellous - Sn/A - [id number] Implanted:Qty : 1 on 04/03/2025 by Brian Baeza MD at [facility] Internal and External Fixation Right: Hip [employer] [id number] / N/A / N/A Screw Bone Ti 32x3.5mm Lck - Sn/A - [id number] Implanted:Qty : 1 on 04/03/2025 by Brian Baeza MD at [facility] Internal and External Fixation Right: Hip [employer] [id number] / N/A / N/A Locking Screw 3.5x40mm - Sn/A - [id number] Implanted:Qty : 2 on 04/03/2025 by Brian Baeza MD at [facility] Internal and External Fixation Right: Hip [employer] [id number] / N/A / N/A Screw Lcking 3.5x20mm Ti Cancellous - Sn/A - [id number] Implanted:Qty : 1 on 04/03/2025 by Brian Baeza MD at [facility] Internal and External Fixation Right: Hip [employer] [id number] / N/A / N/A Screw Bone 3.5mm 42mm Ti Univ - Sn/A - [id number] Implanted:Qty : 1 on 04/03/2025 by Brian Baeza MD at [facility] Internal and External Fixation Right: Hip [employer] [id number] / N/A / N/A Cap Scrw Lckng Ncb - Sn/A - [id number] Implanted:Qty : 7 on 04/03/2025 by Brian Baeza MD at [facility] Internal and External Fixation Right: Hip [employer] [id number] / N/A / N/A Screw Kareem Slftp Ncb 5x30mm - Sn/A - [id number] Implanted:Qty : 3 on 04/03/2025 by Brian Baeza MD at [facility] Internal and External Fixation Right: Hip [employer] [id number] / N/A / N/A Plate Sheldon Lcp [id number] 10h Ch Combi Hole Narrow Lrg Frag Ss - Sn/A - [id number] Implanted:Qty : 1 on 05/05/2025 by Brian Baeza MD at [facility] Internal and External Fixation Right: Femur JNJ [employer]ES 224.601 / N/A / N/A Screw Lcking 4.5x70mm Cocr [place] - Sn/A - [id number] Implanted:Qty : 2 on 05/05/2025 by Brian Baeza MD at [facility] Internal and External Fixation Right: Fem[facility] 7206.1070 / N/A / N/A Screw Lcking 4.5x75mm Cocr [place] - Sn/A - [id number] Implanted:Qty : 1 on 05/05/2025 by Brian Baeza MD at [facility] Internal and External Fixation Right: Femur [facility] 7206.1075 / N/A / N/A Screw Lcking 4.5x40mm Cocr [place] - Sn/A - [id number] Implanted:Qty : 3 on 05/05/2025 by Brian Baeza MD at [facility] Internal and External Fixation Right: Femur [facility] 7206.1040 / N/A / N/A Hip Hd V40 Cocr Lfit 36mm 0 - Sn/A - [id number] Implanted:Qty : 1 on 04/03/2025 by Brian Baeza MD at [facility] Joints Hip Right: Hip [employer] [id number] 07/22/2029 6260-9-136 / N/A / [id number] Plug Bone Sm - Sn/A - [id number] Implanted:Qty : 1 on 04/03/2025 by Brian Baeza MD at [facility] Joints Hip Right: Hip [employer] [id number] 08/28/2029 6215-5-001 / N/A / [id number] 6000 Hip Stem Fem Cmnt [place] 37.5mm No0 - Sn/A - [id number] Implanted:Qty : 1 on 04/03/2025 by Brian Baeza MD at [facility] Joints Hip Right: Hip [employer] [id number] 06/05/2029 0580-1-352 / N/A / [id number] [employer] Cup Implanted:Qty : 1 on 04/03/2025 by Brian Baeza MD at [facility] Right: Hip [employer] 12/08/2029 7309-3-652 / N/A / [id number] Ncb Screw 5.0x32mm Implanted:Qty : 1 on 04/03/2025 by Brian Baeza MD at [facility] Right: Hip [employer] 02.75966.026 / N/A / N/A Ncb Semi Plate 12h L285mm Implanted:Qty : 1 on 04/03/2025 by Brian Baeza MD at [facility] Right: Hip [employer] 02.60506.012 / N/A / N/A Right Plate 17 Shaft Holes 267mm Length Implanted:Qty : 1 on 05/05/2025 by Brian Baeza MD at [facility] Right: Femur [employer] 1195.4217 / NA / NA Nonlocking Screw [id number] Implanted:Qty : 1 on 05/05/2025 by Brian Baeza MD at [facility] Right: Femur [employer] 1206.2048 / NA / NA Locking Screw 4.5x68mm Implanted:Qty : 1 on 05/05/2025 by Brian Baeza MD at [facility] Right: Femur [employer] 7206.1068 / N/A / N/A Locking Screw 4.5x85mm Implanted:Qty : 1 on 05/05/2025 by Brian Baeza MD at [facility] Right: Femur [employer] 7206.1085 / N/A / N/A Locking Screw 4.5x80mm Implanted:Qty : 1 on 05/05/2025 by Brian Baeza MD at [facility] Right: Femur [employer] 7206.1080 / N/A / N/A Locking Screw 4.5x30mm Implanted:Qty : 1 on 05/05/2025 by Brian Baeza MD at [facility] Right: Femur [employer] 7206.1030 / N/A / N/A Non Locking Screw 4.5x40mm Implanted:Qty : 2 on 05/05/2025 by Brian Baeza MD at [facility] Right: Femur [employer] 1206.2040 / N/A / N/A Non Locking Screw 4.5x46mm Implanted:Qty : 1 on 05/05/2025 by Brian Baeza MD at [facility] Right: Femur [employer] 1206.2046 / N/A / N/A Procedures Procedure Name Priority Date/Time Associated Diagnosis Comments XR FEMUR 2+ VIEWS RIGHT Routine 06/15/2025 9:59 AM EST Pain CLOSTRIDIUM DIFFICILE TOXIN STAT 06/08/2025 5:02 PM EST GASTROINTESTINAL PATHOGENS BY PCR STAT 06/08/2025 5:02 PM EST CBC WITH AUTO DIFFERENTIAL STAT 06/08/2025 2:36 PM EST MAGNESIUM STAT 06/08/2025 2:36 PM EST CBC AND DIFFERENTIAL STAT 06/08/2025 2:36 PM EST COMPREHENSIVE METABOLIC PANEL STAT 06/08/2025 2:36 PM EST CBC WITH AUTO DIFFERENTIAL Routine 06/01/2025 5:39 AM EST MAGNESIUM Routine 06/01/2025 5:39 AM EST C-REACTIVE PROTEIN Routine 06/01/2025 5:39 AM EST CBC AND DIFFERENTIAL Routine 06/01/2025 5:39 AM EST BASIC METABOLIC PANEL Routine 06/01/2025 5:39 AM EST BASIC METABOLIC PANEL Timed 05/31/2025 7:01 AM EST INSERT MIDLINE Routine 05/30/2025 11:30 AM EST CBC WITH AUTO DIFFERENTIAL Timed 05/30/2025 9:36 AM EST CBC AND DIFFERENTIAL Timed 05/30/2025 9:36 AM EST C-REACTIVE PROTEIN Add-On 05/30/2025 6:54 AM EST MAGNESIUM Add-On 05/30/2025 6:54 AM EST LAVENDER - EDTA Routine 05/30/2025 6:54 AM EST EXTRA TUBES Routine 05/30/2025 6:54 AM EST BASIC METABOLIC PANEL Timed 05/30/2025 6:54 AM EST HEPATIC FUNCTION PANEL STAT 05/29/2025 3:09 PM EST ACTIVATED PARTIAL THROMBOPLASTIN TIME STAT 05/29/2025 3:09 PM EST PROTHROMBIN TIME WITH INR STAT 05/29/2025 3:09 PM EST OXYGEN THERAPY, ADULT Routine 05/29/2025 10:51 AM EST OXYGEN THERAPY, ADULT Routine 05/29/2025 10:51 AM EST TH AN LMA(NO CHARGE) Routine 05/29/2025 10:25 AM EST INCISION DRAINAGE EXTREMITY LOWER 05/29/2025 10:09 AM EST Hardware complicating wound infection, subsequent encounter BASIC METABOLIC PANEL Timed 05/29/2025 6:31 AM EST LAVENDER - EDTA Routine 05/29/2025 6:29 AM EST EXTRA TUBES Routine 05/29/2025 6:29 AM EST TYPE AND SCREEN Routine 05/28/2025 11:43 AM EST CBC WITH AUTO DIFFERENTIAL Timed 05/28/2025 9:57 AM EST CBC AND DIFFERENTIAL Timed 05/28/2025 9:57 AM EST LAVENDER - EDTA Routine 05/28/2025 6:41 AM EST EXTRA TUBES Routine 05/28/2025 6:41 AM EST BASIC METABOLIC PANEL Timed 05/28/2025 6:41 AM EST BASIC METABOLIC PANEL Timed 05/27/2025 6:21 AM EST LAVENDER - EDTA Routine 05/27/2025 6:18 AM EST EXTRA TUBES Routine 05/27/2025 6:18 AM EST TH AN LMA(NO CHARGE) Routine 05/26/2025 10:14 AM EST INCISION DRAINAGE EXTREMITY UPPER 05/26/2025 9:56 AM EST CBC WITH AUTO DIFFERENTIAL Timed 05/26/2025 6:14 AM EST CBC AND DIFFERENTIAL Timed 05/26/2025 6:14 AM EST BASIC METABOLIC PANEL Timed 05/26/2025 6:14 AM EST LAVENDER - EDTA Routine 05/25/2025 6:57 AM EST EXTRA TUBES Routine 05/25/2025 6:57 AM EST BASIC METABOLIC PANEL Timed 05/25/2025 6:57 AM EST SST - GOLD Routine 05/24/2025 10:08 AM EST EXTRA TUBES Routine 05/24/2025 10:08 AM EST CBC WITH AUTO DIFFERENTIAL Timed 05/24/2025 10:08 AM EST CBC AND DIFFERENTIAL Timed 05/24/2025 10:08 AM EST CBC WITH AUTO DIFFERENTIAL Timed 05/24/2025 6:35 AM EST BASIC METABOLIC PANEL Timed 05/24/2025 6:35 AM EST CBC AND DIFFERENTIAL Timed 05/24/2025 6:35 AM EST CBC WITH AUTO DIFFERENTIAL Timed 05/23/2025 6:38 AM EST BASIC METABOLIC PANEL Timed 05/23/2025 6:38 AM EST CBC AND DIFFERENTIAL Timed 05/23/2025 6:38 AM EST TH AN LMA(NO CHARGE) Routine 05/22/2025 8:00 AM EST WV INCISION AND DRAINAGE PELVIS OR HIP JOINT AREA DEEP ABSCESS OR HEMATOMA 05/22/2025 7:29 AM EST Open wound of right lower extremity, sequela Infection associated with internal fixation device of right femur, subsequent encounter Case Notes wound vac supplies, cystotubing, 3L fluid bags CBC WITH AUTO DIFFERENTIAL Timed 05/22/2025 6:09 AM EST BASIC METABOLIC PANEL Timed 05/22/2025 6:09 AM EST CBC AND DIFFERENTIAL Timed 05/22/2025 6:09 AM EST CBC WITH AUTO DIFFERENTIAL Routine 05/21/2025 5:39 AM EST CBC AND DIFFERENTIAL Routine 05/21/2025 5:39 AM EST C-REACTIVE PROTEIN Routine 05/21/2025 5:39 AM EST BASIC METABOLIC PANEL Routine 05/21/2025 5:39 AM EST TYPE AND SCREEN Routine 05/21/2025 5:39 AM EST MAGNESIUM Routine 05/20/2025 5:46 AM EST BASIC METABOLIC PANEL Routine 05/20/2025 5:46 AM EST COMPLETE BLOOD COUNT Routine 05/20/2025 5:46 AM EST PHOSPHORUS Routine 05/20/2025 5:46 AM EST XR PELVIS 1-2 VIEWS Routine 05/18/2025 2:36 [...] THERAPY, ADULT Routine 05/15/2025 12:41 PM EST WV INCISION & DRAINAGE ABSCESS COMPLICATED/MULTIPLE 05/15/2025 11:49 [...] DEEP Routine 05/13/2025 10:22 AM EST Hematoma WV INCISION AND DRAINAGE LEG OR ANKLE DEEP [...] ENDOTRACHEAL(NO CHARGE) Routine 05/05/2025 12:42 PM EST WV OPEN TX FEMORAL FX DISTAL END/MEDIAL/LATERAL CONDYLE [...] LMA(NO CHARGE) Routine 04/15/2025 8:11 AM EDT WV INCISION AND DRAINAGE PELVIS OR HIP JOINT AREA DEEP ABSCESS OR HEMATOMA 04/15/2025 7:42 AM EDT Bleeding from right hip wound, initial encounter Case Notes Ambrocio bag, cysto tubing, have vac supplies ready but will likely close wound Special Needs ADDED CPT CODE 05515 PER BURAK HAJI AC 04/14 CBC WITH [...] subtrochanteric fracture of right femur, initial encounter (CMS/HCC V24, CMS/FORMERLY [facility] V28) XR HIP 2-3 VIEWS RIGHT Routine 04/03/2025 11:13 AM EDT TRANSFUSE RED BLOOD CELLS Routine 04/03/2025 11:13 AM EDT TRANSFUSE RED BLOOD CELLS Routine 04/03/2025 9:28 AM EDT TH AN ENDOTRACHEAL(NO CHARGE) Routine 04/03/2025 9:26 AM EDT WV ARTHROPLASTY ACETABULAR AND PROXIMAL FEMORAL PROSTHETIC REPLACEMENT 04/03/2025 8:50 AM EDT Closed displaced subtrochanteric fracture of right femur, initial encounter (CMS/HCC V24, CMS/FORMERLY [facility] V28) Case Notes C-ARM, Hannacroix total hip exeter system with long stem cemented and Amita plate lateral femoral plate,ambrocio bag TYPE AND [...] Paroxysmal atrial fibrillation (CMS/HCC V24, CMS/HCC V28) LIPID PANEL WITH REFLEX TO DIRECT LDL Routine 11/21/2024 11:32 AM EDT Atrial fibrillation (CMS/HCC V24, CMS/HCC V28) DXA BONE DENSITY STUDY 1+ SITS AXIAL SKEL Routine 05/28/2023 1:42 PM EST Asymptomatic menopausal state from Last 3 Months or Most Recently Relevant to Health Maintenance Results * XR Femur 2+ Views Right (06/15/2025 9:59 AM EST) Only the most recent of5 resultswithin the time period is included. Narrative [facility] PACS/VR - 06/15/2025 9:59 AM EST This order has been auto-finalized and does not contain a result. us Bhaskar Palomino MD IMG XR PROCEDURES Final R esult [facility] PACS/VR * Gastrointestinal pathogens molecular study (06/08/2025 5:02 PM EST) Campylobacter Detection by PCR Not Detected Not Detected LAB MICROBIOLOGY METHOD 5 6:35 PM [facility] Plesiomonas shigelloides Detection by PCR Not Detected Not Detected LAB MICROBIOLOGY METHOD 5 6:35 PM [facility] Salmonella Detection by PCR Not Detected Not Detected LAB MICROBIOLOGY METHOD 5 6:35 PM [facility] Vibrio Detection by PCR Not Detected Not Detected LAB MICROBIOLOGY METHOD 5 6:35 PM [facility] Vibrio cholerae Detection by PCR Not Detected Not Detected LAB MICROBIOLOGY METHOD 5 6:35 PM [facility] Yersinia enterocolitica Detection by PCR Not Detected Not Detected LAB MICROBIOLOGY METHOD 5 6:35 PM [facility] Enteroaggregative E coli EAEC Detection by PCR Not Detected Not Detected LAB MICROBIOLOGY METHOD 5 6:35 PM [facility] Enteropathogenic E coli EPEC Detection Not Detected Not Detected LAB MICROBIOLOGY METHOD 5 6:35 PM [facility] Enterotoxigenic E coli ETEC LTST Detection Not Detected Not Detected LAB MICROBIOLOGY METHOD 5 6:35 PM [facility] Shiga-like toxin producing E coli STEC STX1 STX2 Det Not Detected Not Detected LAB MICROBIOLOGY METHOD 5 6:35 PM [facility] Shigella Enteroinvasive E coli EIEC Detection Not Detected Not Detected LAB MICROBIOLOGY METHOD 5 6:35 PM [facility] Cryptosporidium Detection by PCR Not Detected Not Detected LAB MICROBIOLOGY METHOD 5 6:35 PM [facility] Cyclospora cayetanensis Detection by PCR Not Detected Not Detected LAB MICROBIOLOGY METHOD 5 6:35 PM [facility] Entamoeba histolytica Detection by PCR Not Detected Not Detected LAB MICROBIOLOGY METHOD 5 6:35 PM [facility] Giardia lamblia Detection by PCR Not Detected Not Detected LAB MICROBIOLOGY METHOD 5 6:35 PM [facility] Adenovirus F 40 41 Detection by PCR Not Detected Not Detected LAB MICROBIOLOGY METHOD 5 6:35 PM [facility] Astrovirus Detection by PCR Not Detected Not Detected LAB MICROBIOLOGY METHOD 5 6:35 PM [facility] Norovirus GI GII Detection by PCR Not Detected Not Detected LAB MICROBIOLOGY METHOD 5 6:35 PM [facility] Sapovirus Detection by PCR Not Detected Not Detected LAB MICROBIOLOGY METHOD 5 6:35 PM [facility] Rotavirus A Detection by PCR Not Detected Not Detected LAB MICROBIOLOGY METHOD 6:35 PM EST [facility] Stool Rectum structure / Unknown Non-blood Collection / Unknown 06/08/2025 5:02 PM EST 06/08/2025 5:12 PM EST Narrative [facility] - 06/08/2025 6:35 PM EST PCR testing is much more sensitive than traditional techniques and allows for the detection of low numbers of stool pathogens. The clinical correlation of PCR results with the need for treatment and clinical outcomes has not been established. Therefore the results of PCR testing for stool pathogens must be taken into clinical context when making treatment decisions. This is a diagnostic test only, repeat testing for cure is not advised. You may consider infectious disease consult for additional guidance. Testing Performed by [facility] Irvin Nichols MD LAB MICROBIOLOGY - GENERAL ORDERABLES Final Result Performing Organization Address City/[facility]/ZIP Co de Phone Number [facility] [address] [place] [address], [place] [phone] * Clostridium difficile toxin (06/08/2025 5:02 PM EST) Clostridium difficile GDH Antigen Negative Negative 06/08/2025 5:56 PM EST [facility] C difficile Toxins A+B, EIA Negative Negative 06/08/2025 5:56 PM EST [facility] Comment:NEGATIVE FOR TOXIN P RODUCING CLOSTRIDIOIDES DIFFICILE, NO ADDITIONAL TESTING IS NECESSARY. Stool Rectum structure / Unknown Non-blood Collection / Unknown 06/08/2025 5:02 PM EST 06/08/2025 5:12 PM EST Irvin Nichols MD LAB MICROBIOLOGY - GENERAL ORDERABLES Final Result Performing Organization Address City/[facility]/ZIP Co de Phone Number [facility] [address] [place] [address], [place] [phone] * (ABNORMAL) CBC auto differential (06/08/2025 2:36 PM EST) Only the most recent of35 resultswithin the time period is included. [facility] WBC 5.5 4.8 - 10.8 K/mcL LAB HEMETOLOGY METHOD 06/08/2025 2:46 PM [facility] RBC 3.40(L) 3.80 - 4.80 M/mcL LAB HEMETOLOGY METHOD 06/08/2025 2:46 PM [facility] Hemoglobin 9.9(L) 11.5 - 16.0 g/dL LAB HEMETOLOGY METHOD 06/08/2025 2:46 PM [facility] Hematocrit 32.0(L) 35.0 - 47.0 % LAB HEMETOLOGY METHOD 06/08/2025 2:46 PM [facility] MCV 94.4 79.0 - 98.0 FL LAB HEMETOLOGY METHOD 06/08/2025 2:46 PM [facility] MCH 29.2 27.0 - 32.0 pcg LAB HEMETOLOGY METHOD 06/08/2025 2:46 PM [facility] MCHC 30.9(L) 32.0 - 37.0 g/dL LAB HEMETOLOGY METHOD 06/08/2025 2:46 PM [facility] RDW 16.2(H) 11.0 - 15.0 % LAB HEMETOLOGY METHOD 06/08/2025 2:46 PM [facility] Platelets 265 130 - 400 K/mcL LAB HEMETOLOGY METHOD 06/08/2025 2:46 PM [facility] MPV 9.1 7.0 - 11.0 FL LAB HEMETOLOGY METHOD 06/08/2025 2:46 PM [facility] NRBC 0.0 <1.0 % LAB HEMETOLOGY METHOD 06/08/2025 2:46 PM [facility] NRBC Absolute 0.00 <0.10 K/mcL LAB HEMETOLOGY METHOD 06/08/2025 2:46 PM [facility] Neutrophils Relative 60.1 % LAB HEMETOLOGY METHOD 06/08/2025 2:46 PM [facility] Lymphocytes Relative 22.2 % LAB HEMETOLOGY METHOD 06/08/2025 2:46 PM [facility] Monocytes Relative 12.1 % LAB HEMETOLOGY METHOD 06/08/2025 2:46 PM [facility] Eosinophils Relative 4.7 % LAB HEMETOLOGY METHOD 06/08/2025 2:46 PM [facility] Basophils Relative 0.7 % LAB HEMETOLOGY METHOD 06/08/2025 2:46 PM [facility] Immature Granulocytes Relative 0.2 % LAB HEMETOLOGY METHOD 06/08/2025 2:46 PM [facility] Neutrophils Absolute 3.32 1.50 - 7.00 K/mcL LAB HEMETOLOGY METHOD 06/08/2025 2:46 PM [facility] Lymphocytes Absolute 1.23 1.00 - 5.00 K/mcL LAB HEMETOLOGY METHOD 06/08/2025 2:46 PM [facility] Monocytes Absolute 0.67 0.20 - 1.00 K/mcL LAB HEMETOLOGY METHOD 06/08/2025 2:46 PM [facility] Eosinophils Absolute 0.26 0.00 - 0.50 K/mcL LAB HEMETOLOGY METHOD 06/08/2025 2:46 PM [facility] Basophils Absolute 0.04 0.00 - 0.20 K/mcL LAB HEMETOLOGY METHOD 06/08/2025 2:46 PM [facility] Immature Granulocytes Absolute 0.01 0.00 - 0.03 K/mcL LAB HEMETOLOGY METHOD 06/08/2025 2:46 PM [facility] Blood Venous blood specimen / Unknown Venipuncture / Unknown 06/08/2025 2:36 PM EST 06/08/2025 2:41 PM EST Irvin Nichols MD LAB BLOOD ORDERABLES Final Result Performing Organization Address [facility]/ZIP Co de Phone Number [facility] [address] [place] [address], [place] [phone] * (ABNORMAL) Magnesium (06/08/2025 2:36 PM EST) Only the most recent of13 resultswithin the time period is included. Magnesium 1.8(L) 1.9 - 2.6 mg/dL 06/08/2025 3:15 PM EST [facility] Blood Venous blood specimen / Unknown Venipuncture / Unknown 06/08/2025 2:36 PM EST 06/08/2025 2:41 PM EST Irvin Nichols MD LAB BLOOD ORDERABLES Final Result Performing Organization Address [facility] Co de Phone Number [facility] [address] [place] [address], [place] [phone] * (ABNORMAL) Comprehensive Metabolic Panel (CMP) (06/08/2025 2:36 PM EST) Only the most recent of5 resultswithin the time period is included. Sodium 147(H) 133 - 145 mmol/L 06/08/2025 3:20 PM EST [facility] Potassium 4.1 3.5 - 5.5 mmol/L 06/08/2025 3:20 PM EST [facility] Chloride 106 96 - 110 mmol/L 06/08/2025 3:20 PM [facility] CO2 34(H) 21 - 32 mmol/L 06/08/2025 3:20 PM EST [facility] Anion Gap 7 3 - 11 06/08/2025 3:20 PM [facility] Glucose 92 70 - 100 mg/dL 06/08/2025 3:20 PM [facility] BUN 30(H) 5 - 25 mg/dL 06/08/2025 3:20 PM [facility] Creatinine 0.97 0.50 - 1.10 mg/dL 06/08/2025 3:20 PM [facility] eGFR 58(L) >=60 mL/min/1. 73m2 06/08/2025 3:20 PM [facility] Comment:Calculation based on the Chronic Kidney Disease Epidemiology Collaboration (CKD-EPI) equation refit without adjustment for race. BUN/Creatinine Ratio 30.9 06/08/2025 3:20 PM [facility] Calcium 8.9 8.5 - 10.5 mg/dL 06/08/2025 3:20 PM [facility] AST (SGOT) 26 10 - 42 unit/L 06/08/2025 3:20 PM [facility] ALT (SGPT) 16 10 - 60 unit/L 06/08/2025 3:20 PM [facility] Alkaline Phosphatase 144(H) 42 - 121 unit/L 06/08/2025 3:20 PM [facility] Total Protein 6.0 6.0 - 8.0 g/dL 06/08/2025 3:20 PM [facility] Albumin 3.4 3.2 - 5.0 g/dL 06/08/2025 3:20 PM [facility] Total Bilirubin 0.4 0.0 - 1.4 mg/dL 06/08/2025 3:20 PM [facility] Blood Venous blood specimen / Unknown Venipuncture / Unknown 06/08/2025 2:36 PM EST 06/08/2025 2:41 PM EST us Irvin Nichols MD LAB BLOOD ORDERABLES Final Result Performing Organization Address [facility]/ZIP Co de Phone Number [facility] [address] [place] [address], [place] [phone] * (ABNORMAL) C-reactive protein (06/01/2025 5:39 AM EST) Only the most recent of4 resultswithin the time period is included. [facility] C-Reactive Protein 0.78(H) <=0.50 mg/dL 06/01/2025 7:10 AM [facility] Blood Venous blood specimen / Unknown Venipuncture / Unknown 06/01/2025 5:39 AM EST 06/01/2025 6:20 AM EST Kitty Castellanos MD LAB BLOOD ORDERABLES Final Resu lt Performing Organization Address [facility]/ZIP Co de Phone Number [facility] [address] [place] [address], [place] [phone] * (ABNORMAL) Basic metabolic panel (06/01/2025 5:39 AM EST) Only the most recent of37 resultswithin the time period is included. [facility] Sodium 141 133 - 145 mmol/L 06/01/2025 7:14 AM [facility] Potassium 4.5 3.5 - 5.5 mmol/L 06/01/2025 7:14 AM [facility] Comment:Hemolysis present Chloride 102 96 - 110 mmol/L 06/01/2025 7:14 AM [facility] CO2 33(H) 21 - 32 mmol/L 06/01/2025 7:14 AM [facility] Anion Gap 6 3 - 11 06/01/2025 7:14 AM [facility] Glucose 89 70 - 100 mg/dL 06/01/2025 7:14 AM [facility] BUN 39(H) 5 - 25 mg/dL 06/01/2025 7:14 AM EST [facility] Creatinine 0.78 0.50 - 1.10 mg/dL 06/01/2025 7:14 AM [facility] eGFR 76 >=60 mL/min/1. 73m2 06/01/2025 7:14 AM [facility] Comment:Calculation based on the Chronic Kidney Disease Epidemiology Collaboration (CKD-EPI) equation refit without adjustment for race. BUN/Creatinine Ratio 50.0 06/01/2025 7:14 AM [facility] Calcium 7.7(L) 8.5 - 10.5 mg/dL 06/01/2025 7:14 AM [facility] Blood Venous blood specimen / Unknown Venipuncture / Unknown 06/01/2025 5:39 AM EST 06/01/2025 6:20 AM EST us Kitty Castellanos MD LAB BLOOD ORDERABLES Final Resu lt [facility] [address] [place] [address], * Insert Midline (05/30/2025 11:30 AM EST) Narrative Jackie Xavier RN - 05/30/2025 11:30 AM EST Jackie Xavier RN 05/30/2025 11:44 AM Midline Insertion Procedure Note Procedure: Insertion of 4F single lumen Bard PowerMidline Lot: [id number] Exp: 2025-12-22 Indications: Ertapenem EOT 06/26/2025 Procedure Details: Maximum sterile technique was used including antiseptics, cap, gloves, gown, hand hygiene, mask, and sheet. US guidance utilized, vein easily accessed and catheter advanced smoothly upon first attempt. Two wires intact and discarded. 1% Lidocaine 2 ml sc administered. 4F Midline inserted to the Left Basilic vein per hospital protocol. Flushes smoothly with good blood return. Findings: Catheter cut at 14 cm and inserted to 14 cm with 0 cm exposed. Mid upper arm circumference is 19 cm. There were no changes to vital signs. Catheter was flushed with 10 cc NS and sterile CVC dressing with Biopatch applied. Patient did tolerate procedure well. Recommendations: May use line for lab draws. Brochure given to patient with teaching instruction. us Kitty Castellanos MD IV THERAPY ORDERABLES Final Res ult * Lavender tube (05/30/2025 6:54 AM EST) Only the most recent of6 resultswithin the time period is included. Pathologist [facility] Extra Tube Hold for add-ons. 05/30/2025 9:01 AM EST [facility] Comment:Auto resulted. Blood Venous blood specimen / Unknown 05/30/2025 6:54 AM EST 05/30/2025 7:26 AM EST us Kitty Castellanos MD LAB BLOOD ORDERABLES Final Resu lt Performing Organization Address City/[facility]/ZIP Co de Phone Number [facility] [address] [place] [address], [place] [phone] * Activated Partial Thromboplastin Time - STAT (05/29/2025 3:09 PM EST) [facility] aPTT 31.8 24.1 - 39.3 sec LAB COAGULATION METHOD 05/29/2025 3:38 PM EST [facility] Blood Venous blood specimen / Unknown Venipuncture / Unknown 05/29/2025 3:09 PM EST 05/29/2025 3:18 PM EST us Jese Mendiola MD LAB BLOOD ORDERABLES Final Re sult Performing Organization Address City/[facility]/ZIP Co de Phone Number [facility] [address] [place] [address], [place] [phone] * Prothrombin Time with INR - STAT (05/29/2025 3:09 PM EST) Only the most recent of4 resultswithin the time period is included. [facility] Protime 11.7 10.6 - 13.9 sec LAB COAGULATION METHOD 05/29/2025 3:38 PM [facility] INR 0.9 LAB COAGULATION METHOD 05/29/2025 3:38 PM [facility] Blood Venous blood specimen / Unknown Venipuncture / Unknown 05/29/2025 3:09 PM EST 05/29/2025 3:18 PM EST us Jese Mendiola MD LAB BLOOD ORDERABLES Final Re sult [facility] [address] [place] [address], [place] [phone] * (ABNORMAL) Hepatic Function Panel - STAT (05/29/2025 3:09 PM EST) [facility] Total Protein 5.3(L) 6.0 - 8.0 g/dL 05/29/2025 4:02 PM [facility] Albumin 3.2 3.2 - 5.0 g/dL 05/29/2025 4:02 PM [facility] Total Bilirubin 0.4 0.0 - 1.4 mg/dL 05/29/2025 4:02 PM [facility] Bilirubin, Direct 0.1 0.0 - 0.3 mg/dL 05/29/2025 4:02 PM [facility] Bilirubin, Indirect 0.3 0.0 - 1.1 mg/dL 05/29/2025 4:02 PM [facility] ALT (SGPT) 13 10 - 60 unit/L 05/29/2025 4:02 PM [facility] AST (SGOT) 14 10 - 42 unit/L 05/29/2025 4:02 PM [facility] Alkaline Phosphatase 157(H) 42 - 121 unit/L 05/29/2025 4:02 PM EST [facility] Blood Venous blood specimen / Unknown Venipuncture / Unknown 05/29/2025 3:09 PM EST 05/29/2025 3:18 PM EST Jese Mendiola MD LAB BLOOD ORDERABLES Final Re sult [facility] [address] [place] [address], [place] [phone] * TH AN LMA(NO CHARGE) (05/29/2025 10:25 AM EST) Rosio Arauz CRNA - 05/29/2025 10:25 AM EST Rosio Jose CRNA 05/29/2025 10:25 AM General Information and Staff Patient location during procedure: OR Resident/STORE RECEIVER: Rosio Jose CRNA Performed: resident/STORE RECEIVER/CAA Performed by: Rosio Jose CRNA Authorized by: Nik Dash MD Intubation Airway not difficult Reason: elective Final Airway Details LMA Size: 4 LMA Type: Unique LMA Seal Pressure:20 Final airway type: LMA Indications and Patient Condition Indications for airway management: anesthesia and airway protection Sedation level: Yes Preoxygenated: yesSoft Tissue Damage: No Dentition Unchanged: Yes Patient position: sniffing MILS maintained throughout Mask difficulty assessment: 0 - not attempted Nik Dash MD ANESTHESIA ORDERABLES Final Re sult * Type and screen (05/28/2025 11:43 AM EST) Only the most recent of8 resultswithin the time period is included. ABO Group O 05/28/2025 1:25 PM EST [facility] Rh Type Positive 05/28/2025 1:25 PM EST [facility] Antibody Screen Negative 05/28/2025 1:25 PM EST [facility] Blood Venous blood specimen / Unknown Venipuncture / Unknown 05/28/2025 11:43 AM EST 05/28/2025 11:56 AM EST Adelina SUMNER LAB BLOOD BANK TEST ORDERABL ES Final Result Performing Organization Address [facility]/ZIP Co de Phone Number [facility] [address] [place] [address], [place] [phone] * TH AN LMA(NO CHARGE) (05/26/2025 10:14 AM EST) Rosio Arauz CRNA - 05/26/2025 10:14 AM EST Rosio Jose CRNA 05/26/2025 10:21 AM General Information and Staff Patient location during procedure: OR Anesthesiologist: Marcos Trujillo DO Resident/STORE RECEIVER: Rosio Jose CRNA Performed: resident/STORE RECEIVER/CAA Performed by: Rosio Jose CRNA Authorized by: Marcos Trujillo DO Intubation Additional Comments LMA 3 unique poor seal. Replaced with LMA 4 good seal Airway not difficult Reason: elective Final Airway Details LMA Size: 4 LMA Type: Unique LMA Seal Pressure:20 Final airway type: LMA Indications and Patient Condition Indications for airway management: anesthesia and airway protection Sedation level: Yes Preoxygenated: yesSoft Tissue Damage: No Dentition Unchanged: Yes Patient position: sniffing MILS maintained throughout Mask difficulty assessment: 0 - not attempted Marcos Trujillo DO ANESTHESIA ORDERABLES Edited Re sult - Final * SST tube (05/24/2025 10:08 AM EST) Only the most recent of9 resultswithin the time period is included. Extra Tube Hold for add-ons. 05/24/2025 12:01 PM EST [facility] Comment:Auto resulted. Blood Venous blood specimen / Unknown 05/24/2025 10:08 AM EST 05/24/2025 10:12 AM EST Conor Chau MD LAB BLOOD ORDERABLES Final Resul t Performing Organization Address [facility]/ZIP Co de Phone Number [facility] [address] [place] [address], [place] [phone] * TH AN LMA(NO CHARGE) (05/22/2025 8:00 AM EST) Musa Hernandez CRNA - 05/22/2025 8:00 AM EST Musa Slater CRNA 05/22/2025 8:01 AM General Information and Staff Patient location during procedure: OR Resident/STORE RECEIVER: Musa Slater CRNA Performed: resident/STORE RECEIVER/CAA Performed by: Musa Slater CRNA Authorized by: Hitesh Sharma MD Intubation Airway not difficult Reason: elective Final Airway Details LMA Size: 4 LMA Type: Unique LMA Seal Pressure: Final airway type: LMA Indications and Patient Condition Indications for airway management: anesthesia and airway protection Sedation level: Yes Preoxygenated: yesSoft Tissue Damage: No Dentition Unchanged: Yes Patient position: neutral MILS maintained throughout Mask difficulty assessment: 1 - vent by mask us Hitesh Sharma MD ANESTHESIA ORDERABLES Final Re sult * (ABNORMAL) Complete blood count (05/20/2025 5:46 AM EST) Only the most recent of8 resultswithin the time period is included. WBC 6.6 4.8 - 10.8 K/mcL LAB HEMETOLOGY METHOD 05/20/2025 6:43 AM [facility] RBC 3.30(L) 3.80 - 4.80 M/mcL LAB HEMETOLOGY METHOD 05/20/2025 6:43 AM [facility] Hemoglobin 9.5(L) 11.5 - 16.0 g/dL LAB HEMETOLOGY METHOD 05/20/2025 6:43 AM [facility] Hematocrit 30.8(L) 35.0 - 47.0 % LAB HEMETOLOGY METHOD 05/20/2025 6:43 AM [facility] MCV 93.3 79.0 - 98.0 FL LAB HEMETOLOGY METHOD 05/20/2025 6:43 AM [facility] MCH 28.8 27.0 - 32.0 pcg LAB HEMETOLOGY METHOD 05/20/2025 6:43 AM EST [facility] MCHC 30.8(L) 32.0 - 37.0 g/dL LAB HEMETOLOGY METHOD 05/20/2025 6:43 AM EST [facility] RDW 17.1(H) 11.0 - 15.0 % LAB HEMETOLOGY METHOD 05/20/2025 6:43 AM [facility] Platelets 450(H) 130 - 400 K/mcL LAB HEMETOLOGY METHOD 05/20/2025 6:43 AM EST [facility] MPV 9.2 7.0 - 11.0 FL LAB HEMETOLOGY METHOD 05/20/2025 6:43 AM EST [facility] NRBC 0.0 <1.0 % LAB HEMETOLOGY METHOD 05/20/2025 6:43 AM [facility] NRBC Absolute 0.00 <0.10 K/mcL LAB HEMETOLOGY METHOD 05/20/2025 6:43 AM EST [facility] Blood Venous blood specimen / Unknown Venipuncture / Unknown 05/20/2025 5:46 AM EST 05/20/2025 6:21 AM EST Kobi Franklin MD LAB BLOOD ORDERABLE S Final Result [facility] [address] [place] [address], * Phosphorus (05/20/2025 5:46 AM EST) Only the most recent of4 resultswithin the time period is included. Phosphorus 3.4 2.5 - 4.5 mg/dL 05/20/2025 7:25 AM EST [facility] Blood Venous blood specimen / Unknown Venipuncture / Unknown 05/20/2025 5:46 AM EST 05/20/2025 6:20 AM EST Kobi Veronica Franklin MD LAB BLOOD ORDERABLE S Final Result [facility] [address] [place] [address], * XR Pelvis 1-2 Views (05/18/2025 2:36 [...] Signed Date: 05/19/2025 07:19 ET Workstation ID: [id number] Transcribed By: Self Edit Transcribed Date: 05/19/2025 [...] new. Procedure Note Ajit Pugh MD - 11/25/2025 EXAMINATION: PELVIS CLINICAL INFORMATION: Postop COMPARISON: Frontal [...] Date: 05/19/2025 07:14 ET Assigned Physician: Ajit Pguh Reviewed and Electronically Signed By: Ajit Pugh Signed Date: 05/19/2025 07:19 ET Workstation ID: [id number] Transcribed By: Self Edit Transcribed Date: 05/19/2025 [...] Chris Campos DO ANESTHESIA ORDERABLES Final Result * (ABNORMAL) Urinalysis with reflex microscopic and culture (05/15/2025 4:37 PM EST) Specific [place] Urine 1.017 1.003 - 1.030 LAB URINALYSIS - AUTOMATED METHOD 05/15/2025 6:16 PM [facility] pH, Urine 7.0 5.0 - 8.0 pH LAB URINALYSIS - AUTOMATED METHOD 05/15/2025 6:16 PM [facility] Leukocytes, Urine Trace(A) Negative LAB URINALYSIS - AUTOMATED METHOD 05/15/2025 6:16 PM [facility] Nitrite, Urine Negative Negative LAB URINALYSIS - AUTOMATED METHOD 05/15/2025 6:16 PM [facility] Protein, Urine Negative <=Trace mg/dL LAB URINALYSIS - AUTOMATED METHOD 05/15/2025 6:16 PM [facility] Glucose, Urine Negative Negative mg/dL LAB URINALYSIS - AUTOMATED METHOD 05/15/2025 6:16 PM [facility] Ketones, Urine Negative Negative mg/dL LAB URINALYSIS - AUTOMATED METHOD 05/15/2025 6:16 PM [facility] Urobilinogen, Urine 0.2 0.2 - 1.0 mg/dL LAB URINALYSIS - AUTOMATED METHOD 05/15/2025 6:16 PM [facility] Bilirubin, Urine Negative Negative LAB URINALYSIS - AUTOMATED METHOD 05/15/2025 6:16 PM [facility] Blood, Urine Negative Negative LAB URINALYSIS - AUTOMATED METHOD 05/15/2025 6:16 PM [facility] RBC, Urine 0 0 - 4 /HPF LAB URINALYSIS - AUTOMATED METHOD 05/15/2025 6:16 PM [facility] WBC, Urine 5(H) 0 - 4 /HPF LAB URINALYSIS - AUTOMATED METHOD 05/15/2025 6:16 PM [facility] Squamous Epithelial, Urine 20 0 - 60 /LPF LAB URINALYSIS - AUTOMATED METHOD 05/15/2025 6:16 PM [facility] Bacteria, Urine Negative Negative /HPF LAB URINALYSIS - AUTOMATED METHOD 05/15/2025 6:16 PM [facility] Hyaline Casts, Urine 0 0 - 3 /LPF LAB URINALYSIS - AUTOMATED METHOD 05/15/2025 6:16 PM [facility] Urine Urine specimen obtained by clean catch procedure / Unknown Non-blood Collection / Unknown 05/15/2025 4:37 PM EST 05/15/2025 5:26 PM EST Kamilla SUMNER LAB URINE ORDERABLES Final Resul t Performing Organization Address City/[facility]/ZIP Co de Phone Number [facility] [address] [place] [address], [place] [phone] * Solorzano urine culture tube (05/15/2025 4:37 PM EST) Extra Tube Hold for add-ons. 05/15/2025 7:01 PM [facility] Comment:Auto resulted. Urine Urine specimen obtained by clean catch procedure / Unknown Non-blood Collection / Unknown 05/15/2025 4:37 PM EST 05/15/2025 5:26 PM EST Kamillaben SUMNER LAB URINE ORDERABLES Final Resul t Performing Organization Address City/[facility]/ZIP Co de Phone Number [facility] [address] [place] [address], [place] [phone] * Culture urine (05/15/2025 4:37 PM EST) Culture, Urine <10,000 cfu/ml, insignificant count, no further workup. 05/16/2025 2:41 PM EST [facility] Urine Urine specimen obtained by clean catch procedure / Unknown Non-blood Collection / Unknown 05/15/2025 4:37 PM EST 05/15/2025 6:16 PM EST us Kamilla SUMNER LAB MICROBIOLOGY - GENERAL ORDER NISH Final Result [facility] [address] [place] [address], [place] [phone] * XR Femur 1 View Right (05/13/2025 11:58 AM EST) Anatomical Region Laterality Modality Lower Extremities, Femur Right Radiogr aphic Imaging 05/13/2025 4:08 PM EST Impressions 05/13/2025 4:13 PM EST Impression: New postop changes in the distal femur, with 2 additional sideplates placed, traversing the acute distal femoral diaphyseal fracture. Alignment of the major fracture fragments is anatomic. Romeo SUMNER ([id number]) -------- FINAL REPORT -------- Dictated By: Carmen Prado Dictated Date: 05/13/2025 16:08 ET Assigned Physician: Carmen Prado Reviewed and Electronically Signed By: Carmen Prado Signed Date: 05/13/2025 16:13 ET Workstation ID: [id number] Transcribed By: Self Edit Transcribed Date: 05/13/2025 [...] femur from 11:40 AM are submitted from [facility]. The patient has undergone interim open [...] major fracture fragments is anatomic. Romeo SUMNER ([id number]) -------- FINAL REPORT -------- Dictated By: Carmen Prado Dictated Date: 05/13/2025 16:08 ET Assigned Physician: Carmen Prado Reviewed and Electronically Signed By: Carmen Prado Signed Date: 05/13/2025 16:13 ET Workstation ID: [id number] Transcribed By: Self Edit Transcribed Date: 05/13/2025 [...] Signed Date: 05/13/2025 13:19 ET Workstation ID: [id number] Transcribed By: Self Edit Transcribed Date: 05/13/2025 [...] Signed Date: 05/13/2025 13:19 ET Workstation ID: [id number] Transcribed By: Self Edit Transcribed Date: 05/13/2025 13:18 ET us dAelina SUMNER IMG XR PROCEDURES Final Resu lt * (ABNORMAL) Culture wound deep (05/13/2025 10:25 AM EST) Only the most recent of6 resultswithin the time period is included. Culture, Wound Enterobacter cloacae complex(A) SAUL 05/16/2025 9:47 AM EST [facility] Comment: The organism value for this result has been updated. These results have been appended to the previously preliminary verified report. This is an edited result. Previous organism was Gram negative bacilli on 05/14/2025 at 1332 EST. Culture, Wound Citrobacter sedlakii(A) SAUL 05/16/2025 9:47 AM EST [facility] Comment: The organism value for this result has been updated. These results have been appended to the previously preliminary verified report. Gram Stain Result Few Polymorphonuclear leukocytes 05/16/2025 9:47 AM [facility] Gram Stain Result No epithelial cells seen 05/16/2025 9:47 AM [facility] Gram Stain Result No organisms seen 05/16/2025 9:47 AM [facility] Swab Right hip region [...] MICROBIOLOGY - GENERAL ORDER NISH Final Result [facility] ([facility]) [facility] [address] [place] [address], * TH AN LMA(NO CHARGE) (05/13/2025 10:24 [...] Result * Prepare RBC: 1 Units, Leukoreduced (05/09/2025 1:28 PM EST) Only the most recent of6 resultswithin the time period is included. Product Code [id number] 05/09/2025 3:57 PM EST [facility] Unit Number [id number] 05/09/20 3:57 PM [facility] Crossmatch Compatible 05/09/2025 3:09 PM [facility] Dispense Status Transfused 05/09/2025 3:57 PM [facility] Unit ABO Rh ONEG 05/09/2025 3:57 PM [facility] Unit Expiration Date Time [id number] 05/09/2025 3:57 PM [facility] Unit Blood Type 9500 05/09/2025 3:57 PM [facility] Blood Venous blood specimen / Unknown 05/09/2025 1:28 PM EST 05/09/2025 1:50 PM EST us Solitario Barrios MD BLOOD BANK PRODUCT ORDERABLE S Final Result [facility] [address] [place] [address], [place] [phone] * POCT Glucose, blood (05/09/2025 7:56 AM EST) Glucose POCT 88 70 - 100 mg/dL 05/09/2025 7:56 AM EST [facility] Blood Capillary blood specimen / Unknown 05/09/2025 7:56 AM EST 05/09/2025 7:58 AM EST us Solitario Barrios MD LAB POINT OF CARE TE ST DOCKED DEVICE UNSOLICITED RESULTS Final Result [facility] [address] [place] [address], [place] [phone] * TH AN ENDOTRACHEAL(NO CHARGE) (05/05/2025 12:42 PM EST) Yolis Monge CRNA - 05/05/2025 12:42 PM EST Yolis [...] 05/05/2025 11:37 AMStop Time: 05/05/2025 11:40 AM Wilmer Comer MD ANESTHESIA ORDERABLES Final Re sult * (ABNORMAL) Hemoglobin and hematocrit (05/03/2025 6:48 AM EST) Only the most recent of6 resultswithin the time period is included. Hemoglobin 8.5(L) 11.5 - 16.0 g/dL LAB HEMETOLOGY METHOD 05/03/2025 7:31 AM EST [facility] Hematocrit 27.2(L) 35.0 - 47.0 % LAB HEMETOLOGY METHOD 05/03/2025 7:31 AM EST [facility] Blood Venous blood specimen / Unknown Venipuncture / Unknown 05/03/2025 6:48 AM EST 05/03/2025 7:10 AM EST us Kitty Castellanos MD LAB BLOOD ORDERABLES Final Resu lt Performing Organization Address City/[facility]/ZIP Co de Phone Number [facility] [address] [place] [address], [place] [phone] * (ABNORMAL) Iron and TIBC (05/02/2025 6:48 AM EST) Iron 22(L) 40 - 150 mcg/dL LAB CHEMISTRY METHOD 05/03/2025 1:58 AM EST [facility] TIBC 232(L) 250 - 450 mcg/dL LAB CHEMISTRY METHOD 05/03/2025 1:58 AM EST [facility] Iron Saturation 9(L) 15 - 50 % LAB CHEMISTRY METHOD 05/03/2025 1:58 AM EST [facility] Blood Venous blood specimen / Unknown Venipuncture / Unknown 05/02/2025 6:48 AM EST 05/02/2025 6:53 AM EST us Kitty Castellanos MD LAB BLOOD ORDERABLES Final Resu lt Performing Organization Address [facility] Co de Phone Number [facility] [address] [place] [address], [place] [phone] * (ABNORMAL) Vitamin D 25 hydroxy (05/02/2025 6:48 AM EST) Vit D, 25-Hydroxy 21.9(L) 30.0 - 80.0 ng/mL LAB CHEMISTRY METHOD 05/02/2025 4:07 PM EST [facility] Blood Venous blood specimen / Unknown Venipuncture / Unknown 05/02/2025 6:48 AM EST 05/02/2025 6:53 AM EST us Kitty Castellanos MD LAB BLOOD ORDERABLES Final Resu lt [facility] [address] [place] [address], [place] [phone] * Vitamin B12 (05/02/2025 6:48 AM EST) Vitamin B-12 434 250 - 900 pcg/mL LAB CHEMISTRY METHOD 05/02/2025 3:55 PM EST [facility] Blood Venous blood specimen / Unknown Venipuncture / Unknown 05/02/2025 6:48 AM EST 05/02/2025 6:53 AM EST us Kitty Castellanos MD LAB BLOOD ORDERABLES Final Resu lt [facility] [address] [place] [address], [place] [phone] * XR Knee 1-2 Views Right (05/01/2025 [...] Signed Date: 05/01/2025 16:39 ET Workstation ID: [id number] Transcribed By: Self Edit Transcribed Date: 05/01/2025 [...] Signed Date: 05/01/2025 16:39 ET Workstation ID: [id number] Transcribed By: Self Edit Transcribed Date: 05/01/2025 [...] Signed Date: 05/01/2025 16:38 ET Workstation ID: [id number] Transcribed By: Self Edit Transcribed Date: 05/01/2025 [...] Signed Date: 05/01/2025 16:38 ET Workstation ID: [id number] Transcribed By: Self Edit Transcribed Date: 05/01/2025 [...] 04/13/2025 1:32 PMStop Time: 04/13/2025 1:34 PM Fadumo Dockery MD ANESTHESIA ORDERABLES Edited Result - Final * Culture anaerobic with gram stain (04/10/2025 8:03 AM EDT) Only the most recent of3 resultswithin the time period is included. Culture, Anaerobic No Growth of Anaerobes. 04/15/2025 8:04 AM EDT [facility] Gram Stain Result Refer to Aerobic culture for gram stain results. 04/15/2025 8:04 AM EDT [facility] Swab Structure of right thigh / Unknown 04/10/2025 8:03 AM EDT 04/10/2025 9:06 AM EDT Gris Mojica MD LAB MICROBIOLOGY - GENERAL ORDER NISH Final Result [facility] [address] [place] [address], * TH AN ENDOTRACHEAL(NO CHARGE) (04/10/2025 7:51 AM EDT) Ludy Eden CRNA - 04/10/2025 7:51 AM EDT Ludy Hoff CRNA 04/10/2025 7:52 AM General Information and Staff Patient location during procedure: OR Anesthesiologist: Wilmer Comer MD Resident/STORE RECEIVER: Ludy Hoff CRNA Performed: resident/STORE RECEIVER/CAA Performed by: Ludy Hoff CRNA Authorized by: [...] tissues medially close to the neurovascular bundle. [employer] protocol was not utilized -------- FINAL REPORT -------- Dictated By: Ajit Pugh Dictated Date: 04/09/2025 11:48 ET Assigned Physician: Ajit Pugh Reviewed and Electronically Signed By: Ajit Pugh Signed Date: 04/09/2025 12:05 ET Workstation ID: [id number] Transcribed By: Self Edit Transcribed Date: 04/09/2025 [...] Signed Date: 04/09/2025 12:05 ET Workstation ID: [id number] Transcribed By: Self Edit Transcribed Date: 04/09/2025 11:48 ET us Arvin Alejandro MD IMG CT PROCEDURES Final Result * ECG 12 lead (04/09/2025 9:14 AM EDT) Only the most recent of2 resultswithin the time period is included. Ventricular Rate ECG 132 BPM GEMUSE QRS Duration 98 ms GEMUSE Q-T Interval 264 ms GEMUSE QTc 391 ms GEMUSE R Hampton 34 degrees GEMUSE T Hampton 77 degrees GEMUSE ECG Interpretation Atrial fibrillation with rapid ventricular response with premature ventricular or aberrantly conducted complexes Moderate voltage criteria for LVH, may be normal variant ( Sokolow-Gurrola , Donald product ) ST and T wave abnormality, consider lateral ischemia When compared with ECG of 01-APR-2025 10:57, T wave inversion more evident in Lateral leads Confirmed by ROQUE ROSSI ([id number]) on 04/09/2025 8:59:17 PM GEMUSE 04/09/2025 9:14 AM EDT 04/09/2025 8:59 PM EDT Arvin Alejandro MD ECG ORDERABLES Final Result GEMUSE * ECG-Outside (04/06/2025) us Provider Onbase ECG ORDERABLES Final Result * Tissue exam (04/03/2025 11:35 AM EDT) Pathologist [facility] Final Diagnosis Joint, right femoral head (arthroplasty): -CONSISTENT WITH FRACTURE 04/09/2025 1:24 PM EDT [facility] at 1324 EDT Gross Description [...] tissue. The articular surface is inked black. Tar Heat Exchanger Cleaner sections are submitted in one cassette, three pieces, following decalcification. Additional sales representative canvas products sections are submitted in cassettes 2-4, one piece each, following decalcification. TS 04/09/2025 1:24 PM EDT [facility] Disclaimer Unless otherwise specified, all tissue is 10% NB formalin fixed and paraffin embedded. 04/09/2025 1:24 PM EDT [facility] Bone Right hip region structure / Unknown 04/03/2025 11:35 AM EDT 04/03/2025 1:35 PM EDT us Brian Baeza MD LAB PATHOLOGY ORDERABLES Izzy haq Result [facility] [address] [place] [address], * TH AN ENDOTRACHEAL(NO CHARGE) (04/03/2025 9:26 AM EDT) Rosio Arauz CRNA - 04/03/2025 9:26 AM EDT Rosio Jose CRNA 04/03/2025 9:26 AM General Information and Staff Patient location during procedure: OR Resident/STORE RECEIVER: Rosio Jose CRNA Performed: resident/STORE RECEIVER/CAA Performed by: Rosio Jose CRNA Authorized by: [...] DO ANESTHESIA ORDERABLES Final Res ult * CT Upper Extremity w Contrast Right [...] Signed Date: 04/01/2025 13:46 ET Workstation ID: [id number] Transcribed By: Self Edit Transcribed Date: 04/01/2025 [...] cm with active extravasation. Procedure Note Henry Forrester MD - 04/01/2025 PROCEDURE: CT UPPER EXTREMITY [...] Signed Date: 04/01/2025 13:46 ET Workstation ID: [id number] Transcribed By: Self Edit Transcribed Date: 04/01/2025 13:41 ET us Ean Hoffman MD IMG CT PROCEDURES Final [...] Signed Date: 04/01/2025 12:37 ET Workstation ID: [id number] Transcribed By: Self Edit Transcribed Date: 04/01/2025 [...] Signed Date: 04/01/2025 12:37 ET Workstation ID: [id number] Transcribed By: Self Edit Transcribed Date: 04/01/2025 12:36 ET us Ean Hoffman MD IMG XR [...] Signed Date: 04/01/2025 12:33 ET Workstation ID: [id number] Transcribed By: Self Edit Transcribed Date: 04/01/2025 [...] Signed Date: 04/01/2025 12:33 ET Workstation ID: [id number] Transcribed By: Self Edit Transcribed Date: 04/01/2025 [...] changes with bilateral bony neural foraminal narrowing. Telerad BURAK ([id number]) -------- FINAL REPORT -------- Dictated By: Carmen Prado Dictated Date: 04/01/2025 12:05 ET Assigned Physician: Carmen Prado Reviewed and Electronically Signed By: Carmen Prado Signed Date: 04/01/2025 12:09 ET Workstation ID: [id number] Transcribed By: Self Edit Transcribed Date: 04/01/2025 12:05 ET Narrative 04/01/2025 12:09 PM EDT History: Neck pain after fall. Technique: Helical volumetric imaging of the cervical spine was performed. DLP: 357.97 mGy/cm Reading [employer] Iterative reconstruction technique Findings: Vertebral alignment is [...] the cervical spine wasperformed. DLP: 357.97 mGy/cm [employer] Iterative reconstruction technique Findings: Vertebral alignment is [...] changes with bilateral bony neuralforaminal narrowing. Telerad BUARK ([id number]) -------- FINAL REPORT -------- Dictated By: Carmen Prado Dictated Date: 04/01/2025 12:05 ET Assigned Physician: Carmen Prado Reviewed and Electronically Signed By: Carmen Prado Signed Date: 04/01/2025 12:09 ET Workstation ID: [id number] Transcribed By: Self Edit Transcribed Date: 04/01/2025 [...] age. 3. Multiple chronic lacunar infarcts. Telerad BURAK ([id number]) -------- FINAL REPORT -------- Dictated By: Carmen Prado Dictated Date: 04/01/2025 12:02 ET Assigned Physician: Carmen Prado Reviewed and Electronically Signed By: Carmen Prado Signed Date: 04/01/2025 12:05 ET Workstation ID: [id number] Transcribed By: Self Edit Transcribed Date: 04/01/2025 12:02 ET Narrative 04/01/2025 12:05 PM EDT History: Brain trauma (fall). Comparison: 06/20/18 Technique: Contiguous axial images were obtained at 2.5 mm intervals through the posterior fossa and at 5 mm intervals through the remainder of the brain without intravenous contrast. DLP: 1070.31 mGy/cm GE [employer] [place] Iterative reconstruction technique Findings: Moderate generalized volume [...] brain without intravenous contrast. DLP: 1070.31 mGy/cm Reading [employer] Iterative reconstruction technique Findings: Moderate generalized volume [...] 3. Multiple chronic lacunar infarcts. Telerad PA ([id number]) -------- FINAL REPORT -------- Dictated By: Carmen Prado Dictated Date: 04/01/2025 12:02 ET Assigned Physician: Carmen Prado Reviewed and Electronically Signed By: Carmen Prado Signed Date: 04/01/2025 12:05 ET Workstation ID: [id number] Transcribed By: Self Edit Transcribed Date: 04/01/2025 12:02 ET Ean Hoffman MD IMG CT PROCEDURES Final Result * Troponin I High Sensitivity (04/01/2025 11:05 AM EDT) High Sensitivity Troponin I 13 <=54 ng/L LAB CHEMISTRY METHOD 04/01/2025 12:38 PM EDT [facility] Blood Venous blood specimen / Unknown Venipuncture / Unknown 04/01/2025 11:05 AM EDT 04/01/2025 12:05 PM EDT Narrative [facility] - 04/01/2025 12:38 PM EDT High levels of biotin in samples may falsely decrease hsTroponin values. Use caution when interpreting hsTroponin results in patients taking biotin who exhibit renal impairment (eGFR <60) or in patients taking more than 20 mg/day of biotin. us Ean Hoffman MD LAB BLOOD ORDERABLES Final Res ult [facility] [address] [place] [address], [place] [phone] * CARDIAC HOLTER MONITOR (REPORT GENERATED IN HOUSE) (03/27/2025 2:45 PM EDT) Anatomical Region Laterality Modality Cardiac Diagnost ic Narrative 04/01/2025 10:13 AM EDT [facility] DI[facility]STIC [facility]ING DEPARTMENT [address] [facility], [place] [address], [place] [address] TEL: FAX: Type of test: 24 hour [...] Impression: Afib rate controlled with occasional PVCs. Florina Todd NP [facility] [place] OCEDURES Final Result * Lipid panel with reflex to direct LDL (11/21/2024 11:32 AM EDT) Cholesterol 141 0 - 200 mg/dL LAB CHEMISTRY METHOD 11/21/2024 3:42 PM EDT [facility] Triglycerides 78 0 - 150 mg/dL LAB CHEMISTRY METHOD 11/21/2024 3:42 PM EDT [facility] HDL 87 >=40 mg/dL LAB CHEMISTRY METHOD 11/21/2024 3:42 PM EDT [facility] LDL Calculated 38 0 - 100 mg/dL LAB CHEMISTRY METHOD 11/21/2024 3:42 PM EDT [facility] VLDL Cholesterol Daron 15.6 mg/dL LAB CHEMISTRY METHOD 11/21/2024 3:42 PM EDT [facility] Non HDL Chol. (LDL+VLDL) 54 <145 mg/dL LAB CHEMISTRY METHOD 11/21/2024 3:42 PM EDT [facility] Chol/HDL Ratio 1.6 0.0 - 4.4 LAB CHEMISTRY METHOD 11/21/2024 3:42 PM EDT [facility] Blood Venous blood specimen / Unknown Venipuncture / Unknown 11/21/2024 11:32 AM EDT 11/21/2024 11:32 AM EDT us Bhaskar Becker MD LAB BLOOD ORDERABLES Izzy haq Result [facility] [address] [place] [address], * DXA BONE DENSITY STUDY 1+ SITS [...] should be classified as having osteoporosis. The [facility] Department of Internal Medicine recommends using National [...] Grace shouldbe classified as having osteoporosis. The [facility] Department of Internal Medicine recommendsusing National Osteoporosis [...] or over-estimation of fracture risk by FRAX. us Lilliam Levy MD IMG DXA PROCEDURES Fin al Result from Last 3 Months or Most Recently Relevant to Health Maintenance Additional Health Concerns Active Problems Noted Date Diagnosed Date Autogenerated Problem 04/02/2025 Autogenerated Problem 04/09/2025 Autogenerated Problem 04/13/2025 Autogenerated Problem 04/13/2025 Autogenerated Problem 05/04/2025 Autogenerated Problem 05/12/2025 Autogenerated Problem 05/14/2025 Autogenerated Problem 05/18/2025 Autogenerated Problem 05/19/2025 Autogenerated Problem 05/25/2025 Autogenerated Problem 05/28/2025 Insurance [employer] MEDICARE Advance Directives Documents on File Type Date 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 Advance Directives and Living Will 06/03/2025 1:31 PM MOLST Advance Directives and Living Will 04/21/2025 1:43 PM MOLST Health Care Decision (hx) 08/17/2017 AD VALENTIN [...] Activated Date Inactivated Comments 05/01/2025 8:25 PM 06/02/2025 2:[address] atus was ascertained in the following way: Code [...] Agents on File Name Relationship Healthcare Agent Relationshi p Communication Jovon Grace [facility] Health Care Agent Care Teams Director Dental Services Relationship Specialty Start Date End Date Lilliam Levy MD [address] [place] [address] PCP - General Internal Medicine 07/11/21 Clinical Summary Created on: June 24, 2025 Sanjay Isabella Llamas : 1940 Sex: Female Author Organization [address] [place] [address] Address [address] [place] [address] Phone Care Team Providers Care Director Dental Services Name Role Phone Lilliam Levy MD Primary Care Provider Allergies No known active allergies Medications multivit-min/ir on/folic acid/K (ADULTS MULTIVITAMIN ORAL) Take by mouth daily. Active latanoprost (XALATAN) 0.005 % ophthalmic solution Administer 1 drop into both eyes at bedtime. Active apixaban (Eliquis) 2.5 mg tablet TAKE 1 TABLET BY MOUTH TWICE A DAY 60 tablet 5 10/10/19 25 Active metoprolol succinate (TOPROL-XL) 25 mg 24 hr tablet TAKE 1 TABLET BY MOUTH EVERY DAY 90 tablet 1 10/15/19 25 Active PARoxetine (PAXIL) 20 mg tablet TAKE 1 TABLET BY MOUTH EVERY DAY IN THE MORNING 90 tablet 04/14/20 25 Active dorzolamide (TRUSOPT) 2 % ophthalmic solution Administer 1 drop into the left eye 2 (two) times a day. Active atorvastatin (LIPITOR) 20 mg tablet Take 1 tablet (20 mg total) by mouth at bedtime. 90 tablet 2 06/01/20 25 Active cholestyramine (QUESTRAN) 4 gram packet Take 1 packet (4 g total) by mouth 2 (two) times a day with meals. 60 packet 11 06/02/20 25 2025 Active cholecalciferol (VITAMIN D-3) 1,250 mcg (50,000 unit) capsule Take 1 capsule (50,000 Units total) by mouth 1 (one) time per week. 4 each 06/07/20 25 2025 Active ertapenem 1,000 mg in sodium chloride 0.9 % 50 mL IVPB Infuse 1,000 mg into a venous catheter 1 (one) time each day at the same time for 24 days. 06/02/20 25 2025 Active sulfamethoxazol e-trimethoprim (BACTRIM DS,SEPTRA DS) 800-160 mg per tablet Take 1 tablet by mouth 1 (one) time each day for 120 doses. 120 each 06/27/19 26 2025 Active thiamine (VITAMIN B-1) 100 mg tablet Take 3 tablets (300 mg total) by mouth 1 (one) time each day. 90 tablet 06/03/20 25 2025 Active senna (SENOKOT) 8.6 mg tablet Take 1 tablet (8.6 mg total) by mouth 1 (one) time each day. 30 each 06/02/20 25 2025 Active lisinopriL (PRINIVIL,ZESTR IL) 5 mg tablet Take 1 tablet (5 mg total) by mouth 1 (one) time each day. Active dorzolamide-arvin oloL (COSOPT) 22.3-6.8 mg/mL ophthalmic solution Administer 1 drop into both eyes 2 (two) times a day. 2024 Discontinued(S top Taking at Discharge) atorvastatin (LIPITOR) 20 mg tablet Take 1 tablet (20 mg total) by mouth 1 (one) time each day. 90 tablet 1 11/25/19 25 2024 Discontinued cholestyramine (QUESTRAN) 4 gram packet TAKE 1 PACKET BY MOUTH 2 TIMES A DAY WITH MEALS. 180 packet 04/14/20 25 2024 Discontinued(S top Taking at Discharge) acetaminophen (TYLENOL) 325 mg tablet Take 2 tablets (650 mg total) by mouth every 6 (six) hours if needed for mild pain, fever - temperature GREATER than 38 C (100.4 F) or headaches for up to 10 days. 04/17/202024 Discontinued(S top Taking at Discharge) ascorbic acid (VITAMIN C) 500 mg tablet Take 1 tablet (500 mg total) by mouth 2 (two) times a day for 16 doses. 16 each 04/17/20 25 2024 Discontinued(S top Taking at Discharge) vitamin A 3,000 mcg (10,000 unit) capsule Take 1 capsule (10,000 Units total) by mouth 1 (one) time each day for 7 doses. 04/18/202024 Discontinued(S top Taking at Discharge) oxyCODONE (ROXICODONE) 5 mg immediate release tablet Take 1 tablet (5 mg total) by mouth every 6 (six) hours if needed for severe pain for up to 3 days. Max Daily Amount: 20 mg 12 each 06/02/20 25 2024 Additional Information Patient not taking.Reported on 06/08/2025 Active Problems Problem Noted Date Diagnosed Date Hardware complicating wound infection 05/28/2025 Open wound of right lower extremity 05/18/2025 Infection associated with in ternal fixation device of right femur 05/18/2025 Hematoma of left thigh 05/12/2025 Zoe-prosthetic fracture of femur at tip of pros thesis 05/04/2025 Other closed fracture of dis yayo end of right femur, initial encounter 05/02/2025 Periprosthetic fracture arou nd prosthetic joint, initial encounter 05/01/2025 Moderate malnutrition 04/12/2025 Bleeding from right hip wound 04/09/2025 Atrial fibrillation with rapid ventricular respo nse 04/09/2025 Closed displaced subtrochanteric fracture of rig ht femur 04/02/2025 S/P right hip fracture 04/01/2025 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 difficile diarrhea 08/24/2024 Collagenous colitis 04/19/2021 Atrial fibrillation 01/17/2021 Assessment & Plan (11/26/2024 12:56 PM EDT): Orders: ECG 12 lead Transthoracic echocardiogram (TTE) complete with PRN contrast, bubble, strain, and 3D order panel; Future CHF (congestive heart failure) 01/17/2021 Depression 01/17/2021 HTN (hypertension) 01/17/2021 Mitral valve regurgitation 01/17/2021 Overview (03/27/2024): S/p Mitral valve repair- 2014 Takotsubo cardiomyopathy 01/17/2021 Chronic obstructive pulmonary disease 04/27/2014 Resolved Problems Problem Noted Date Diagnosed Date Resolved Date NSTEMI (non-ST elevated myoc ardial infarction) 01/17/2021 02/11/2025 Overview (03/27/2024): 12/2020 Dr Eller, holter monitor and cardiac cath as outpt. Encounters Date Type Department Care Team Description 06/24/[address] [facility] [address] [facility] [address] [place] [phone] Jackie Monae RN 06/24/2025 Telephone Adult Medicine [facility] [address] [place] [phone] Lilliam Levy MD 06/15/2025 8:06 AM EST - 06/15/2025 11:59 PM [facility] Hospital Encounter [facility] Ortho Xray [address] [place] [address] Pain Discharge Disposition: Home or Self Care 06/08/2025 1:52 PM EST - 06/09/2025 5:20 PM [facility] Emergency [facility] Emergency [address] [place] [phone] Irvin Nichols MD Goebel, Mathew, MD Mogul, Ashley, MD Mersier, Jasmine, DO Thigh abscess (Primary Dx); Diarrhea, unspecified type Discharge Disposition: Home or Self Care 06/08/2025 Telephone Infectious Disease - [place] [address] [place] [address] Bruce Carmona LPN 06/03/2025 Telephone Adult Medicine [facility] [address] [place] [phone] Willian Moralez RN 06/02/2025 Telephone Adult Medicine - [address] [phone] Lilliam Levy MD 06/01/2025 Telephone Adult Medicine - [place] [address] [place] [phone] Lilliam Levy MD 05/29/2025 10:09 AM EST Anesthesia Event [facility] [place] [address] [place] [phone] Nik Dash MD 05/29/2025 9:30 AM EST - 05/29/2025 10:45 AM EST Surgery [facility] OR [address] [place] [phone] Brian Baeza MD INCISION DRAINAGE EXTREMITY LOWER RIGHT THIGH AND WOUND VAC EXCHANGE 05/26/2025 9:56 AM EST Anesthesia Event [facility] [place] [address] [place] [phone] Marcos Trujillo DO Spencer, Mark A, MD 05/26/2025 9:00 AM EST - 05/26/2025 10:00 AM EST Surgery [facility] OR [address] [place] [phone] Brian Baeza MD WASHOUT RIGHT THIGH 05/22/2025 7:30 AM EST - 05/22/2025 9:00 AM EST Surgery [facility] OR [address] [place] [phone] Gris Mojica MD DEBRIDEMENT WOUND RIGHT DISTAL FEMUR [58384 (CPT )] 05/22/2025 7:14 AM EST Anesthesia Event [facility] [place] [address] [place] [phone] Hitesh Sharma MD Claudio, Raymund, CRNA 05/18/2025 1:00 PM EST - 05/18/2025 2:30 PM EST Surgery [facility] [place] [address] [place] [phone] Bhaskar Palomino MD INCISION DRAINAGE RIGHT HIP WITH POSSIBLE CLOSURE 05/18/2025 12:58 PM EST Anesthesia Event [facility] OR [address] [place] [phone] Chris Campos DO Swanson, Mona [facility] 05/15/2025 11:48 AM EST Anesthesia Event [facility] [place] [address] [place] [phone] Anselmo Colon MD 05/15/2025 10:00 AM EST - 05/15/2025 11:00 AM EST Surgery [facility] [place] [address] [place] [phone] Gris Mojica MD INCISION DRAINAGE EXTREMITY LOWER WITH WOUND VAC CHANGE [[id number] (CPT )] 05/13/2025 9:47 AM EST Anesthesia Event [facility] [place] [address] [place] [phone] Nik Dash [facility] 05/13/2025 9:30 AM EST - 05/13/2025 10:45 AM EST Surgery [facility] [place] [address] [place] [phone] Gris Mojica MD INCISION DRAINAGE EXTREMITY LOWER [34080 (CPT )] 05/05/2025 11:27 AM EST Anesthesia Event [facility] [place] [address] [place] [phone] Wilmer Comer MD Swanson, Mona [facility] 05/05/2025 9:55 AM EST - 05/05/2025 11:55 AM EST Surgery [facility] [place] [address] [place] [phone] Brian Baeza MD ORIF RIGHT FEMUR DISTAL [[id number] (CPT )] 05/01/2025 2:31 PM EST - 06/02/2025 11:48 AM EST Hospital Encounter [facility] Urology Unit [address] [place] [phone] ZiebNik porras MD Flores, Carlos M, MD Nasser, Nada S, MD Kokosadze, Estate, MD Mohani, Priya, MD Kela, MD Isac Celeste Yar M, MD Zipagan, Jese Carreon MD Other closed fracture of distal end of right femur, initial encounter (CMS/HCC V24, [facility] V28) (Primary Dx); Hematoma; Periprosthetic fracture around prosthetic joint, initial encounter Discharge Disposition: Home-Health Care [facility] 05/01/2025 [facility] [facility] [address] [phone] Lilliam Levy MD 04/23/2025 7:38 AM EDT - 04/23/2025 11:59 PM EDT Hospital Encounter [facility] Ortho Xray [address] [place] [address] Pain Discharge Disposition: Home or Self Care 04/15/2025 7:42 AM EDT Anesthesia Event [facility] [place] [address] [place] [phone] Yanna Mujica MD 04/15/2025 7:30 AM EDT - 04/15/2025 9:00 AM EDT Surgery [facility] [place] [address] [place] [phone] Gris Mojica MD Incision & drainage right hip [[id number] (CPT )] 04/13/2025 1:40 PM EDT - 04/13/2025 3:10 PM EDT Surgery [facility] [place] [address] [place] [phone] Gris Mojica MD INCISION DRAINAGE R HIP LATERAL 04/13/2025 1:26 PM EDT Anesthesia Event [facility] [place] [address] [place] [phone] Fadumo Dockery MD 04/10/2025 7:34 AM EDT Anesthesia Event [facility] [place] [address] [place] [phone] Wilmer Comer MD Hard, Shannon, CRNA 04/10/2025 7:30 AM EDT - 04/10/2025 9:00 AM EDT Surgery [facility] [place] [address] [place] [phone] Gris Mojica MD right hip wound incicsion and drainage and wound vac placement 04/09/2025 8:54 AM EDT - 04/20/2025 3:48 PM EDT Hospital Encounter [facility] Intermediate Care Unit B [address] [place] [phone] Arvin Alejandro MD Flores, Carlos M, MD Japaridze, Anna, MD Rasul, Yar M, MD Surendran, Anupama, MD Atrial fibrillation with rapid ventricular response ([facility] V24, [facility] V28) (Primary Dx); Bleeding from right hip wound, initial encounter Discharge Disposition: Retirement Facility 04/06/2025 Lab Requisition [facility] [address] [place] [phone] Casimiro Oh MD Essential (primary) hypertension; Unspecified atrial fibrillation ([facility] V24, [facility] V28); Displaced intertrochanteric fracture of right femur, initial encounter for closed fracture ([facility] V24, [facility] V28) 04/03/2025 8:50 AM EDT Anesthesia Event [facility] [place] [address] [place] [phone] Marcos Trujillo DO Couture, Alison, LING 04/03/2025 7:30 AM EDT - 04/03/2025 9:30 AM EDT Surgery [facility] [place] [address] [place] [phone] Brian Baeza MD ARTHROPLASTY RIGHT HIP TOTAL, PLATING [[id number] (CPT )] 04/01/2025 10:30 AM EDT - 04/05/2025 4:33 PM EDT Hospital Encounter [facility] Intermediate Care Unit B [address] [place] [phone] Ean Hoffman MD Bukalo, Nermina, MD Shah, Princy, MD Displaced intertrochanteric fracture of right femur, initial encounter for closed fracture ([facility] V24, [facility] V28) (Primary Dx); Traumatic hematoma of right forearm, initial encounter; Closed displaced subtrochanteric fracture of right femur, initial encounter ([facility] V24, [facility] V28) Discharge Disposition: Retirement Facility 04/01/2025 Results Follow-Up [facility] Cardiology [facility] [address] [place] [address] Florina Todd NP 03/27/2025 2:30 PM EDT Ancillary Procedure [facility] Cardiology [facility] [address] [place] [address] Paroxysmal atrial fibrillation ([facility] V24, [facility] V28) from Last 3 Months Immunizations Immunization Administration Dates Next Due Influenza Quadravalent, 0.5m l (Fluzone High-dose) 65yo and older 04/24/2022 Influenza trivalent, 0.5mL ( Fluad) 65yo and older 04/10/2024 Influenza trivalent, 0.5mL ( Fluzone High-dose) 65yo and older 03/26/2023,04/19/2021,05/05/2020,02/16,02/15/2015 [employer] SARS-CoV-2 COVID-19, mRNA, LNP-S, preservative free 03/30/2021 [...] History Medical History Date Comments Atrial fibrillation ([facility] V24, [facility] V28) 01/17/2021 DX:Atrial fibrillation (HCC) CHF (congestive heart failur e) ([facility] V24, [facility] V28) 01/17/2021 DX:CHF (congestive heart fa ilure) ([facility]) Takotsubo cardiomyopathy 01/17/2021 DX:Tako tsubo cardiomyopathy NSTEMI (non-ST elevated myoc ardial infarction) ([facility] V24, [facility] V28) 01/17/2021 DX:NSTEMI (non-ST elevated m yocardial infarction) ([facility]); COMMENT: 12/2020 Dr Eller, holter monitor and cardiac cath as outpt. Depression 01/17/2021 DX:Depression Pubic ramus fracture ([facility]/ [facility] V24, [facility] V28) 11/30/2021 DX:Pubic ramus fracture ([facility] ) Clostridium difficile diarrhea 03/26/2024 D X:Clostridium difficile diarrhea NSTEMI (non-ST elevated myoc ardial infarction) ([facility] V24, [facility] V28) 01/17/202112/2020 Dr Eller, holter mon itor [...] your loved ones. For example, director of child welfare services or elderly care for an older adult? [...] Orientation Straight 06/27/2024 10 :57 AM EST Last Filed Vital Signs Vital Sign Reading Time Taken Comments Blood Pressure 139/80 06/09/2025 8:39 AM EST Pulse 72 06/09/2025 8:39 AM EST Temperature 36.3 C (97.4 F) 06/08/2025 11:56 PM EST Respiratory Rate 18 06/09/2025 8:39 AM EST Oxygen Saturation 98% 06/09/2025 8:39 AM EST Inhaled Oxygen Concentration - - Weight 41.7 kg (92 lb) 06/08/2025 2:03 PM EST Height 165.1 cm (5' 5 ) 06/08/2025 2:03 PM EST Body Mass Index 15.31 06/08/2025 2:03 PM EST Plan of Treatment Upcoming Encounters Date Type Department Care Team (Late st Contact Info) Description 06/29/2025 10:40 AM EST Appointment [facility] Ortho Xray [address] [place] [address] 06/29/2025 10:45 AM EST Appointment [facility] Ortho Xray [address] [place] [address] 07/01/2025 4:00 PM EST Office Visit Infectious Disease - [place] [address] [address] Koki Rasmussen MD 175 [facility] [address] [place] [address]
[2025-06-24 17:14] LABS: MANUAL DIFF FLAG NO
--- OUTSIDE RECORDS SUMMARY | 2025-06-24 17:14 | XMS_ITS | Encounter Summary ---
Author Organization Address [address] [place] [address] Care Team Providers Care Lead Electrician Name Role Phone Lilliam Levy MD Primary Care Provider Encounter Details Date Type Department Care Team (Latest Contact Info) Description 04/06/2025 Lab Requisition [facility] - Main Lab [address] [place] [address] Casimiro Oh MD [facility] [place] [address] Essential (primary) hypertension; Unspecified atrial fibrillation (CMS/HCC [...] care for your loved ones. For example, exceptional children's teacher or elderly care for an older [...] AM EST documented as of this encounter Plan of Treatment Upcoming Encounters Date Type Department Care Team (Late st Contact Info) Description 06/29/2025 10:40 AM EST Appointment [facility] Ortho Xray [address] [place] [address] 06/29/2025 10:45 AM EST Appointment [facility] Ortho Xray [address] [place] [address] 07/01/2025 4:00 PM EST Office Visit Infectious Disease - [place] 175 [facility] [address] [place] [address] Koki Rasmussen MD 175 [facility] [address] [place] [address] 07/31/2025 3:30 PM EST Office Visit Adult Medicine - [place] [address] [place] [address] Lilliam Levy MD [address] [place] [address] 08/06/2025 10:50 AM EST Office Visit [facility] [address] [facility] [address] [place] [address] Bhaskar Becker MD Medical [facility] [address] [place] [address] documented as of this encounter Goals Goal [...] EDT Essential (primary) hypertension Unspecified atrial fibrillation ([facility] V24, [facility] V28) Displaced intertrochanteric fracture of right femur, initial encounter for closed fracture ([facility] V24, [facility] V28) documented in this encounter Results * (ABNORMAL) Basic metabolic panel (04/06/2025 8:10 AM EDT) Pathologist [facility] Sodium 141 133 - 145 mmol/L LAB CHEMISTRY METHOD 04/06/2025 1:13 PM [facility] Potassium 4.3 3.5 - 5.5 mmol/L LAB CHEMISTRY METHOD 04/06/2025 1:13 PM [facility] Chloride 110 96 - 110 mmol/L LAB CHEMISTRY METHOD 04/06/2025 1:13 PM [facility] CO2 23 21 - 32 mmol/L LAB CHEMISTRY METHOD 04/06/2025 1:13 PM [facility] Anion Gap 8 3 - 11 LAB CHEMISTRY METHOD 04/06/2025 1:13 PM [facility] Glucose 85 70 - 100 mg/dL LAB CHEMISTRY METHOD 04/06/2025 1:13 PM [facility] BUN 29(H) 5 - 25 mg/dL LAB CHEMISTRY METHOD 04/06/2025 1:13 PM [facility] Creatinine 0.61 0.50 - 1.10 mg/dL LAB CHEMISTRY METHOD 04/06/2025 1:13 PM [facility] eGFR 89 >=60 mL/min/1. 73m2 LAB CHEMISTRY METHOD 04/06/2025 1:13 PM [facility] Comment:Calculation based on the Chronic Kidney Disease Epidemiology Collaboration (CKD-EPI) equation refit without adjustment for race. BUN/Creatinine Ratio 47.5 LAB CHEMISTRY METHOD 04/06/2025 1:13 PM EDT [facility] Calcium 8.5 8.5 - 10.5 mg/dL LAB CHEMISTRY METHOD 04/06/2025 1:13 PM EDT [facility] Blood Venous blood specimen / Unknown Venipuncture / Unknown 04/06/2025 8:10 AM EDT 04/06/2025 11:04 AM EDT us Casimiro Oh MD LAB BLOOD ORDERABLES Final R esult [facility] [address] [place] [address], * (ABNORMAL) Complete blood count (04/06/2025 8:10 AM EDT) WBC 9.0 4.8 - 10.8 K/mcL LAB HEMETOLOGY METHOD 04/06/2025 12:44 PM EDT [facility] RBC 2.90(L) 3.80 - 4.80 M/mcL LAB HEMETOLOGY METHOD 04/06/2025 12:44 PM EDT [facility] Hemoglobin 9.1(L) 11.5 - 16.0 g/dL LAB HEMETOLOGY METHOD 04/06/2025 12:44 PM T [facility] Hematocrit 28.6(L) 35.0 - 47.0 % LAB HEMETOLOGY METHOD 04/06/2025 12:44 PM EDT [facility] MCV 98.6(H) 79.0 - 98.0 FL LAB HEMETOLOGY METHOD 04/06/2025 12:44 PM EDT [facility] MCH 31.4 27.0 - 32.0 pcg LAB HEMETOLOGY METHOD 04/06/2025 12:44 PM T [facility] MCHC 31.8(L) 32.0 - 37.0 g/dL LAB HEMETOLOGY METHOD 04/06/2025 12:44 PM EDT [facility] RDW 15.0 11.0 - 15.0 % LAB HEMETOLOGY METHOD 04/06/2025 12:44 PM EDT [facility] Platelets 213 130 - 400 K/mcL LAB HEMETOLOGY METHOD 04/06/2025 12:44 PM EDT [facility] MPV 10.0 7.0 - 11.0 FL LAB HEMETOLOGY METHOD 04/06/2025 12:44 PM EDT [facility] NRBC 0.0 <1.0 % LAB HEMETOLOGY METHOD 04/06/2025 12:44 PM EDT [facility] NRBC Absolute 0.00 <0.10 K/mcL LAB HEMETOLOGY METHOD 04/06/2025 12:44 PM EDT [facility] Blood Venous blood specimen / Unknown Venipuncture / Unknown 04/06/2025 8:10 AM EDT 04/06/2025 11:04 AM EDT us Casimiro Oh MD LAB BLOOD ORDERABLES Final R esult [facility] [address] [place] [address], documented in this encounter Visit Diagnoses Diagnosis Essential (primary) hypertension Unspecified essential hypertension Unspecified atrial fibrillation (CMS/HCC V24, CMS/HCC V28) Displaced intertrochanteric fracture of right femur, initial encounter for closed fracture (CMS/HCC V24, CMS/HCC V28) documented in this encounter Additional Health Concerns Active Problems Noted Date Diagnosed Date Autogenerated Problem 04/02/2025 Infection Onset Date Last Indicated Resolved Time Gastrointestinal Rule-Out 06/08/2025 06/08/2025 6:35 PM EST C. difficile Rule-Out 06/08/2025 06/08/20252024 5:56 PM EST Assessment Noted Time PHQ-9 Depression Total Score: 1 02/05/20 25 12:33 PM EDT documented as of this encounter Care Teams Lead Electrician Relationship Specialty Start Date End Date Lilliam Levy MD [address] [place] [address] PCP - General Internal Medicine 07/11/21 documented as of this encounter
[2025-06-24 17:17] LABS: Hematocrit 29.3 % (37.0-47.0); Hemoglobin 9.6 g/dl (12.0-16.0); Imm Gran Abs Auto 0.02 X10*3/uL (0.00-0.03); Imm Gran Pct Auto 0.3 % (0.0-0.4); Lymphocytes Absolute Auto 1.2 X10*3/uL (1.2-4.9); Mean Corpuscular HGB Conc 32.8 g/dl (31.0-35.0); Mean Corpuscular Hemoglobin 29.4 pg (27.0-33.0); Mean Corpuscular Volume 89.9 fL (80.0-98.0); NRBC Abs Auto 0.000 X10*3/uL (0.0-0.012); NRBC Pct Auto 0.0 /100WBC (0.0-0.2); Platelet Count 303 X10*3/uL (160-400); Red Blood Count 3.26 X10*6/uL (4.20-5.50); White Blood Count 5.8 X10*3/uL (4.8-10.8)
[2025-06-24 17:29] LABS: Anion Gap 11 (12-20); Blood Urea Nitrogen 34 mg/dL (9-16); Calcium 9.4 mg/dL (8.4-10.2); Carbon Dioxide 29 mmol/L (22-29); Chloride 107 mmol/L (96-108); Estimated Glomerular Filt Rate 54; Potassium 4.4 mmol/L (3.3-5.1); Sodium 143 mmol/L (135-145)
== END 2025-06-24 17:10 | disposition home or self-care (01) ==
LOC: HO.HVNA 17:09
PROVIDERS: Visit Provider Internal Medicine Infectious Disease
DX: M86.151 Other acute osteomyelitis, right femur (principal); T84.620A Infection and inflammatory reaction due to internal fixation device of right femur, initial encounter; B96.89 Other specified bacterial agents as the cause of diseases classified elsewhere
CPT/HCPCS: 36415; 80048; 85025